=== PATIENT | male | born 1940 | race African-American/Black ===

== ENCOUNTER 2016-04-05 14:07 | Outpatient (CLI) | payer MEDICARE, BC ==
[2016-04-05] MEDS ORDERED: SENN8.6T6 PO (20:33)
[2016-04-05] MEDS ORDERED: FURO40TA5 PO (20:33)
[2016-04-05] MEDS ORDERED: APIX2.5T PO (20:33)
[2016-04-05] MEDS ORDERED: ASPI81TA2 PO (20:33)
[2016-04-05] MEDS ORDERED: INSU3INS6 SUBCUT (20:33)
[2016-04-05] MEDS ORDERED: CLOP75TA2 PO (20:33)
[2016-04-05] MEDS ORDERED: CARV6.252 PO (20:33)
[2016-04-05] MEDS ORDERED: METO-302 PO (20:33)
[2016-04-05] MEDS ORDERED: LISI2.5T2 PO (20:33)
[2016-04-05] MEDS ORDERED: SPIR25TA4 PO (20:33)
[2016-04-05] MEDS ORDERED: ATOR80TA PO (20:33)
[2016-04-05] MEDS ORDERED: LEVO100T9 PO (20:33)
== END 2016-04-05 23:59 | disposition home or self-care (01) ==
LOC: WOU 14:07
PROVIDERS: ATTEND Specialist
DX: E11.52 Type 2 diabetes mellitus with diabetic peripheral angiopathy with gangrene (principal); E11.621 Type 2 diabetes mellitus with foot ulcer; L97.413 Non-pressure chronic ulcer of right heel and midfoot with necrosis of muscle; Z99.3 Dependence on wheelchair; G47.30 Sleep apnea, unspecified; F17.210 Nicotine dependence, cigarettes, uncomplicated; I25.10 Atherosclerotic heart disease of native coronary artery without angina pectoris; Z95.5 Presence of coronary angioplasty implant and graft; Z89.612 Acquired absence of left leg above knee; E05.00 Thyrotoxicosis with diffuse goiter without thyrotoxic crisis or storm; L03.115 Cellulitis of right lower limb
CPT/HCPCS: 11043; 11046; 87070 ×2; 87075 ×2; 87077; 87186 ×3; A6253; A6402 ×2; A6407

== ENCOUNTER 2016-04-05 15:53 | Inpatient (IN) | payer MEDICARE, BC ==
[~2016-04-05] VITALS: Ht 177.8 cm; Wt 126.1 kg
[2016-04-05] MEDS ORDERED: ACETAMINOPHEN 325 MG TABLET PO PRN (17:30)
[2016-04-05] MEDS ORDERED: Z GUARD REMEDY 2 OZ OINT TP PRN (17:30)
[2016-04-05] MEDS ORDERED: MAG HYDROX/AL HYDROX/SIMETH 30 ML UDC PO PRN (17:30)
[2016-04-05] MEDS ORDERED: ONDANSETRON HCL/PF 4 MG/2 ML VIAL IVP PRN (17:30)
[2016-04-05] MEDS ORDERED: MAGNESIUM HYDROXIDE 30 ML UDC PO PRN (17:30)
[2016-04-05] MEDS ORDERED: HYDROCODONE/APAP 5/325MG 1 EACH TABLET PO PRN (17:30)
[2016-04-05 20:00] VITALS: BP 125/69
[2016-04-05] MEDS ORDERED: VANCOMYCIN 1 GM in IV D5W 250 ML IV ONE (20:00)
[2016-04-05 20:31] LABS: CALCIUM, SERUM 7.9 mg/dL (8.5-10.1); CREATININE 1.3 mg/dL (0.6-1.3); POTASSIUM 3.9 mmol/L (3.5-5.1)
[2016-04-05] MEDS ORDERED: LISI2.5T2 PO (20:33)
[2016-04-05] MEDS ORDERED: INSU3INS6 SQ (20:33)
[2016-04-05] MEDS ORDERED: ATOR80TA PO (20:33)
[2016-04-05] MEDS ORDERED: APIX2.5T PO (20:33)
[2016-04-05] MEDS ORDERED: METO-302 PO (20:33)
[2016-04-05] MEDS ORDERED: CLOP75TA2 PO (20:33)
[2016-04-05] MEDS ORDERED: LEVO100T9 PO (20:33)
[2016-04-05] MEDS ORDERED: ASPI81TA2 PO (20:33)
[2016-04-05] MEDS ORDERED: FURO40TA5 PO (20:33)
[2016-04-05] MEDS ORDERED: SENN8.6T6 PO (20:33)
[2016-04-05] MEDS ORDERED: CARV6.252 PO (20:33)
[2016-04-05] MEDS ORDERED: SPIR25TA4 PO (20:33)
[2016-04-05] MEDS ORDERED: FEE PK DOSING 1 MIN EA MC ONE (20:43)
[2016-04-05] MEDS ORDERED: PIPERACILLIN /TAZOBACTAM 4.5 G in IV D5W 50 ML IV SCH (21:00)
[2016-04-05] MEDS ORDERED: IV SET PRIMARY PUMP SET 1 EA INFUS.SET MC ONE (21:18)
[2016-04-05] MEDS ORDERED: SECONDARY IV SET 1 EA INFUS.SET MC ONE (21:18)
[2016-04-05] MEDS ORDERED: IV NS 0.9% 250 ML IV ONE (21:18)
[2016-04-05] MEDS: PIPERACILLIN /TAZOBACTAM 3.375 G in IV D5W 50 ML IV SCH (22:16)
[2016-04-06] MEDS: PIPERACILLIN /TAZOBACTAM 3.375 G in IV D5W 50 ML IV SCH ×4 (05:36→23:54)
[2016-04-06 07:52] LABS: BASOPHILS % (AUTO) 0.3 % (0.0-2.0); DIFF TOTAL % 100 %; EOSINOPHILS # (AUTO) 0.1 /CMM (0.0-0.7); EOSINOPHILS % (AUTO) 0.9 % (0.0-6.0); HEMATOCRIT 29 % (39-51); HEMOGLOBIN 9.3 g/dL (13.5-17.5); LYMPHOCYTES # (AUTO) 1.2 /CMM (0.8-4.8); LYMPHOCYTES % (AUTO) 10.8 % (20.0-44.0); MEAN CORPUSCULAR HEMOGLOBIN 26 PG (26.0-33.0); MEAN CORPUSCULAR HGB CONC 32 g/dl (31.0-36.0); MEAN CORPUSCULAR VOLUME 83 fL (80-96); MONOCYTES % (AUTO) 8.9 % (2.0-12.0); NEUTROPHILS # (AUTO) 9.1 /CMM (1.8-8.9); NEUTROPHILS % (AUTO) 79.1 % (43.0-81.0); PLATELET COUNT (AUTO) 354 /CMM (150-450); RED BLOOD CELL COUNT(AUTO) 3.54 MIL/uL (4.5-6.0); WHITE BLOOD COUNT (AUTO) 11.4 K/uL (4.3-11.0)
[2016-04-06 08:00] VITALS: BP 126/60
[2016-04-06 08:04] LABS: CALCIUM, SERUM 8.3 mg/dL (8.5-10.1); CREATININE 1.2 mg/dL (0.6-1.3); POTASSIUM 3.7 mmol/L (3.5-5.1)
[2016-04-06 08:23] LABS: THYROID STIMULATING HORMONE 5.961 uIU/mL (0.358-3.74)
[2016-04-06 10:33] LABS: INR 0.99 (0.87-1.13); PROTHROMBIN TIME 10.7 SECS (9.5-12.7)
[2016-04-06] MEDS: VANCOMYCIN 1 GM in IV D5W 250 ML IV SCH ×2 (11:19→21:46)
[2016-04-06] MEDS: PANTOPRAZOLE 40 MG TABLET.DR PO SCH (11:19)
[2016-04-06] MEDS: ENOXAPARIN SODIUM 40 MG/0.4 ML DISP.SYRIN SQ SCH (11:20)
[2016-04-06] MEDS ORDERED: SENNOSIDES 8.6 MG TABLET PO PRN (12:00)
[2016-04-06] MEDS ORDERED: DEXTROSE 50%-WATER 50 ML DISP.SYRIN IV PRN (12:00)
[2016-04-06] MEDS: BLOOD SUGAR DIAGNOSTIC 1 EACH STRIP IN SCH ×3 (12:05→21:43)
[2016-04-06] MEDS: INSULIN REGULAR, HUMAN 100 UNIT/ML 3 ML VIAL SQ PRN ×3 (12:16→21:45)
[2016-04-06] MEDS ORDERED: SECONDARY IV SET 1 EA INFUS.SET MC ONE (13:08)
[2016-04-06 13:10] LABS: IRON, SERUM 19 ug/dl (50-175); PERCENT SATURATION 11 % (14-33); TOTAL IRON BINDING CAPACITY 178 ug/dl (250-450)
[2016-04-06] MEDS: Magnesium 1GM/D5W 100ML PREMIX 100 ML IV SCH ×2 (14:23→15:30)
[2016-04-06 16:00] VITALS: BP 133/70
[2016-04-06] MEDS ORDERED: APIXABAN 2.5 MG TABLET PO SCH (17:00)
[2016-04-06] MEDS: LACTOBACILLUS RHAMNOSUS GG 1 EACH CAP.SPRINK PO SCH (17:59)
[2016-04-06] MEDS: FUROSEMIDE 40 MG TABLET PO SCH (17:59)
[2016-04-06] MEDS: CARVEDILOL 6.25 MG TABLET PO SCH (18:00)
[2016-04-06 20:00] VITALS: BP 136/68
[2016-04-06] MEDS: HYDROCODONE/APAP 10/325MG 1 EA TABLET PO PRN (20:09)
[2016-04-06] MEDS: INSULIN DETEMIR 100 UNIT/ML CARTRIDGE SQ SCH (21:46)
[2016-04-06] MEDS: ATORVASTATIN 40 MG TABLET PO SCH (21:47)
[2016-04-06] MEDS: ZOLPIDEM TARTRATE 5 MG TABLET PO PRN (21:50)
[2016-04-07] MEDS: PIPERACILLIN /TAZOBACTAM 3.375 G in IV D5W 50 ML IV SCH ×2 (05:27→12:35)
[2016-04-07] MEDS: BLOOD SUGAR DIAGNOSTIC 1 EACH STRIP IN SCH ×5 (05:47→21:22)
[2016-04-07 07:26] LABS: CALCIUM, SERUM 8.1 mg/dL (8.5-10.1); CREATININE 1.3 mg/dL (0.6-1.3); POTASSIUM 3.6 mmol/L (3.5-5.1)
[2016-04-07] MEDS ORDERED: MIDAZOLAM HCL 2 MG/2ML VIAL ONE (07:43)
[2016-04-07] MEDS ORDERED: FENTANYL PF 100MCG/2ML AMPUL ONE (07:44)
[2016-04-07 08:00] VITALS: BP 146/80
[2016-04-07 08:40] VITALS: BP 146/80
[2016-04-07] MEDS: ENOXAPARIN SODIUM 40 MG/0.4 ML DISP.SYRIN SQ SCH (09:00)
[2016-04-07] MEDS: VANCOMYCIN 1 GM in IV D5W 250 ML IV SCH (09:23)
[2016-04-07] MEDS: LEVOTHYROXINE SODIUM 100 MCG TABLET PO SCH (09:24)
[2016-04-07] MEDS: SPIRONOLACTONE 25 MG TABLET PO SCH (09:24)
[2016-04-07] MEDS: LACTOBACILLUS RHAMNOSUS GG 1 EACH CAP.SPRINK PO SCH ×2 (09:24→16:52)
[2016-04-07] MEDS: CLOPIDOGREL BISULFATE 75 MG TABLET PO SCH (09:24)
[2016-04-07] MEDS: PANTOPRAZOLE 40 MG TABLET.DR PO SCH (09:24)
[2016-04-07] MEDS: FUROSEMIDE 40 MG TABLET PO SCH ×2 (09:24→16:51)
[2016-04-07] MEDS: LISINOPRIL (5MG) 5 MG TABLET PO SCH (09:25)
[2016-04-07] MEDS: CARVEDILOL 6.25 MG TABLET PO SCH ×2 (09:25→16:51)
[2016-04-07] MEDS: METOPROLOL SUCCINATE 25 MG TAB.SR.24H PO SCH (09:27)
[2016-04-07] MEDS: INSULIN REGULAR, HUMAN 100 UNIT/ML 3 ML VIAL SQ PRN ×2 (12:45→17:59)
[2016-04-07 16:00] VITALS: BP 133/59
[2016-04-07] MEDS: SOD FERRIC GLUC 125 MG in IV NS 0.9% 100 ML IV SCH (16:00)
[2016-04-07 16:39] VITALS: BP 133/59
[2016-04-07] MEDS: ACIDOPHILUS/BULGARICUS 1 EACH TAB.CHEW PO SCH (16:52)
[2016-04-07] MEDS: CEFTRIAXONE 2 G in IV D5W 100 ML IV SCH (17:04)
[2016-04-07 20:00] VITALS: BP 123/62
[2016-04-07] MEDS: HYDROCODONE/APAP 10/325MG 1 EA TABLET PO PRN (20:00)
[2016-04-07 20:12] VITALS: BP 123/62
[2016-04-07] MEDS: ATORVASTATIN 40 MG TABLET PO SCH (21:21)
[2016-04-07] MEDS: INSULIN DETEMIR 100 UNIT/ML CARTRIDGE SQ SCH (22:00)
[2016-04-08 06:41] LABS: CALCIUM, SERUM 8.3 mg/dL (8.5-10.1); CREATININE 1.3 mg/dL (0.6-1.3); POTASSIUM 4.1 mmol/L (3.5-5.1)
[2016-04-08 08:00] VITALS: BP 124/87
[2016-04-08] MEDS: PANTOPRAZOLE 40 MG TABLET.DR PO SCH (08:33)
[2016-04-08] MEDS: LEVOTHYROXINE SODIUM 100 MCG TABLET PO SCH (08:34)
[2016-04-08] MEDS: SPIRONOLACTONE 25 MG TABLET PO SCH (08:37)
[2016-04-08] MEDS: METOPROLOL SUCCINATE 25 MG TAB.SR.24H PO SCH (08:39)
[2016-04-08] MEDS: CLOPIDOGREL BISULFATE 75 MG TABLET PO SCH (08:39)
[2016-04-08] MEDS: ACIDOPHILUS/BULGARICUS 1 EACH TAB.CHEW PO SCH ×3 (08:40→17:02)
[2016-04-08] MEDS: LACTOBACILLUS RHAMNOSUS GG 1 EACH CAP.SPRINK PO SCH ×2 (08:41→17:01)
[2016-04-08] MEDS: ENOXAPARIN SODIUM 40 MG/0.4 ML DISP.SYRIN SQ SCH (08:46)
[2016-04-08] MEDS: LISINOPRIL (5MG) 5 MG TABLET PO SCH (09:00)
[2016-04-08] MEDS: FUROSEMIDE 40 MG TABLET PO SCH ×2 (09:40→17:03)
[2016-04-08] MEDS: CARVEDILOL 6.25 MG TABLET PO SCH ×2 (09:42→17:04)
[2016-04-08] MEDS ORDERED: VANCOMYCIN 0.75 GM in IV D5W 250 ML IV SCH (10:00)
[2016-04-08] MEDS: BLOOD SUGAR DIAGNOSTIC 1 EACH STRIP IN SCH ×3 (12:25→21:52)
[2016-04-08] MEDS ORDERED: SECONDARY IV SET 1 EA INFUS.SET MC ONE (12:29)
[2016-04-08] MEDS: VANCOMYCIN 0.75 GM in IV D5W 250 ML IV SCH (12:34)
[2016-04-08] MEDS: HYDROCODONE/APAP 10/325MG 1 EA TABLET PO PRN ×2 (12:35→20:02)
[2016-04-08] MEDS: INSULIN REGULAR, HUMAN 100 UNIT/ML 3 ML VIAL SQ PRN ×2 (12:37→21:59)
[2016-04-08] MEDS: SOD FERRIC GLUC 125 MG in IV NS 0.9% 100 ML IV SCH (14:46)
[2016-04-08 16:00] VITALS: BP 122/63
[2016-04-08] MEDS: CEFTRIAXONE 2 G in IV D5W 100 ML IV SCH ×2 (17:05→20:39)
[2016-04-08 20:00] VITALS: BP 117/68
[2016-04-08] MEDS: ATORVASTATIN 40 MG TABLET PO SCH (21:51)
[2016-04-08] MEDS: INSULIN DETEMIR 100 UNIT/ML CARTRIDGE SQ SCH (21:58)
[2016-04-09] MEDS: VANCOMYCIN 0.75 GM in IV D5W 250 ML IV SCH ×2 (00:05→12:27)
[2016-04-09] MEDS: BLOOD SUGAR DIAGNOSTIC 1 EACH STRIP IN SCH ×4 (05:28→22:06)
[2016-04-09] MEDS: INSULIN REGULAR, HUMAN 100 UNIT/ML 3 ML VIAL SQ PRN ×4 (05:36→22:11)
[2016-04-09 07:42] LABS: BASOPHILS % (AUTO) 0.1 % (0.0-2.0); DIFF TOTAL % 100 %; EOSINOPHILS # (AUTO) 0.2 /CMM (0.0-0.7); HEMATOCRIT 28 % (39-51); HEMOGLOBIN 8.7 g/dL (13.5-17.5); LYMPHOCYTES # (AUTO) 1.1 /CMM (0.8-4.8); LYMPHOCYTES % (AUTO) 13.1 % (20.0-44.0); MEAN CORPUSCULAR HEMOGLOBIN 26 PG (26.0-33.0); MEAN CORPUSCULAR HGB CONC 32 g/dl (31.0-36.0); MEAN CORPUSCULAR VOLUME 81 fL (80-96); MONOCYTES # (AUTO) 0.6 /CMM (0.1-1.30); MONOCYTES % (AUTO) 7.6 % (2.0-12.0); NEUTROPHILS # (AUTO) 6.5 /CMM (1.8-8.9); NEUTROPHILS % (AUTO) 77.2 % (43.0-81.0); PLATELET COUNT (AUTO) 358 /CMM (150-450); WHITE BLOOD COUNT (AUTO) 8.4 K/uL (4.3-11.0)
[2016-04-09 08:00] VITALS: BP_SYST 107; BP_DIAS 45; BP_DIAS 75
[2016-04-09 08:18] LABS: CREATININE 1.3 mg/dL (0.6-1.3); POTASSIUM 3.8 mmol/L (3.5-5.1)
[2016-04-09] MEDS: CLOPIDOGREL BISULFATE 75 MG TABLET PO SCH (08:56)
[2016-04-09] MEDS: ACIDOPHILUS/BULGARICUS 1 EACH TAB.CHEW PO SCH ×3 (08:56→16:41)
[2016-04-09] MEDS: LEVOTHYROXINE SODIUM 100 MCG TABLET PO SCH (08:56)
[2016-04-09] MEDS: FUROSEMIDE 40 MG TABLET PO SCH ×2 (08:56→16:41)
[2016-04-09] MEDS: PANTOPRAZOLE 40 MG TABLET.DR PO SCH (08:56)
[2016-04-09] MEDS: LACTOBACILLUS RHAMNOSUS GG 1 EACH CAP.SPRINK PO SCH ×2 (08:56→16:41)
[2016-04-09] MEDS: CARVEDILOL 6.25 MG TABLET PO SCH ×2 (09:00→17:00)
[2016-04-09] MEDS: LISINOPRIL (5MG) 5 MG TABLET PO SCH (09:00)
[2016-04-09] MEDS: METOPROLOL SUCCINATE 25 MG TAB.SR.24H PO SCH (09:00)
[2016-04-09] MEDS: ENOXAPARIN SODIUM 40 MG/0.4 ML DISP.SYRIN SQ SCH (09:02)
[2016-04-09] MEDS: HYDROCODONE/APAP 10/325MG 1 EA TABLET PO PRN ×2 (09:03→21:46)
[2016-04-09] MEDS: SPIRONOLACTONE 25 MG TABLET PO SCH (10:31)
[2016-04-09] MEDS ORDERED: SILVER SULFADIAZINE 50 GM JAR TP SCH (14:00)
[2016-04-09] MEDS: SOD FERRIC GLUC 125 MG in IV NS 0.9% 100 ML IV SCH (14:51)
[2016-04-09 16:00] VITALS: BP 102/47
[2016-04-09] MEDS: CEFTRIAXONE 2 G in IV D5W 100 ML IV SCH (16:41)
[2016-04-09] MEDS: SILVER SULFADIAZINE CREAM 25 GM TUBE TP SCH (18:49)
[2016-04-09 20:00] VITALS: BP 113/64
[2016-04-09] MEDS: ZOLPIDEM TARTRATE 5 MG TABLET PO PRN (21:46)
[2016-04-09] MEDS: ATORVASTATIN 40 MG TABLET PO SCH (21:47)
[2016-04-09] MEDS: INSULIN DETEMIR 100 UNIT/ML CARTRIDGE SQ SCH (22:10)
[2016-04-10] MEDS: VANCOMYCIN 0.75 GM in IV D5W 250 ML IV SCH ×2 (00:08→11:57)
[2016-04-10] MEDS: BLOOD SUGAR DIAGNOSTIC 1 EACH STRIP IN SCH ×4 (05:54→21:59)
[2016-04-10 07:32] LABS: CALCIUM, SERUM 8.2 mg/dL (8.5-10.1); CREATININE 1.3 mg/dL (0.6-1.3); POTASSIUM 4.2 mmol/L (3.5-5.1)
[2016-04-10 08:00] VITALS: BP 128/71
[2016-04-10] MEDS: CLOPIDOGREL BISULFATE 75 MG TABLET PO SCH (08:22)
[2016-04-10] MEDS: ACIDOPHILUS/BULGARICUS 1 EACH TAB.CHEW PO SCH ×3 (08:23→17:11)
[2016-04-10] MEDS: PANTOPRAZOLE 40 MG TABLET.DR PO SCH (08:23)
[2016-04-10] MEDS: LEVOTHYROXINE SODIUM 100 MCG TABLET PO SCH (08:23)
[2016-04-10] MEDS: LACTOBACILLUS RHAMNOSUS GG 1 EACH CAP.SPRINK PO SCH ×2 (08:23→17:11)
[2016-04-10] MEDS: SILVER SULFADIAZINE CREAM 25 GM TUBE TP SCH ×2 (08:25→17:13)
[2016-04-10] MEDS: DAKINS QUARTER STRENGTH (0.125%) 480 ML BOTTLE TOP SCH (08:25)
[2016-04-10] MEDS: CARVEDILOL 6.25 MG TABLET PO SCH ×2 (08:26→17:12)
[2016-04-10] MEDS: METOPROLOL SUCCINATE 25 MG TAB.SR.24H PO SCH (08:27)
[2016-04-10] MEDS: LISINOPRIL (5MG) 5 MG TABLET PO SCH (08:27)
[2016-04-10] MEDS: FUROSEMIDE 40 MG TABLET PO SCH ×2 (08:27→17:12)
[2016-04-10] MEDS: ENOXAPARIN SODIUM 40 MG/0.4 ML DISP.SYRIN SQ SCH (08:30)
[2016-04-10] MEDS: SPIRONOLACTONE 25 MG TABLET PO SCH (09:00)
[2016-04-10] MEDS: SOD FERRIC GLUC 125 MG in IV NS 0.9% 100 ML IV SCH (14:28)
[2016-04-10 16:00] VITALS: BP 124/66
[2016-04-10] MEDS: CEFTRIAXONE 2 G in IV D5W 100 ML IV SCH (17:45)
[2016-04-10] MEDS: INSULIN REGULAR, HUMAN 100 UNIT/ML 3 ML VIAL SQ PRN ×2 (17:50→22:07)
[2016-04-10 20:00] VITALS: BP 118/72
[2016-04-10 20:20] VITALS: BP 118/72
[2016-04-10] MEDS: ATORVASTATIN 40 MG TABLET PO SCH (22:00)
[2016-04-10] MEDS: INSULIN DETEMIR 100 UNIT/ML CARTRIDGE SQ SCH (22:10)
[2016-04-11] MEDS: VANCOMYCIN 0.75 GM in IV D5W 250 ML IV SCH ×2 (00:35→12:09)
[2016-04-11] MEDS ORDERED: IV SET PRIMARY PUMP SET 1 EA INFUS.SET MC ONE ×3 (04:40→14:04)
[2016-04-11 05:07] LABS: BASOPHILS % (AUTO) 0.2 % (0.0-2.0); DIFF TOTAL % 100 %; EOSINOPHILS # (AUTO) 0.2 /CMM (0.0-0.7); EOSINOPHILS % (AUTO) 2.1 % (0.0-6.0); HEMATOCRIT 29 % (39-51); HEMOGLOBIN 9.2 g/dL (13.5-17.5); LYMPHOCYTES # (AUTO) 1.1 /CMM (0.8-4.8); LYMPHOCYTES % (AUTO) 13.9 % (20.0-44.0); MEAN CORPUSCULAR HEMOGLOBIN 26 PG (26.0-33.0); MEAN CORPUSCULAR HGB CONC 32 g/dl (31.0-36.0); MEAN CORPUSCULAR VOLUME 82 fL (80-96); MONOCYTES # (AUTO) 0.5 /CMM (0.1-1.30); MONOCYTES % (AUTO) 6.1 % (2.0-12.0); NEUTROPHILS # (AUTO) 6.2 /CMM (1.8-8.9); NEUTROPHILS % (AUTO) 77.7 % (43.0-81.0); PLATELET COUNT (AUTO) 331 /CMM (150-450); RED BLOOD CELL COUNT(AUTO) 3.53 MIL/uL (4.5-6.0)
[2016-04-11 05:21] LABS: CALCIUM, SERUM 8.2 mg/dL (8.5-10.1); CREATININE 1.3 mg/dL (0.6-1.3); POTASSIUM 3.6 mmol/L (3.5-5.1)
[2016-04-11 05:47] LABS: INR 0.99 (0.87-1.13); PROTHROMBIN TIME 10.7 SECS (9.5-12.7)
[2016-04-11] MEDS: BLOOD SUGAR DIAGNOSTIC 1 EACH STRIP IN SCH ×4 (06:40→22:05)
[2016-04-11] MEDS ORDERED: MIDAZOLAM HCL 2 MG/2ML VIAL ONE (07:38)
[2016-04-11] MEDS ORDERED: FENTANYL PF 100MCG/2ML AMPUL ONE (07:38)
[2016-04-11] MEDS ORDERED: BACITRACIN 50000 UNITS/VIAL ONE (08:21)
[2016-04-11] MEDS ORDERED: TOBRAMYCIN 1.2 GM ONE (08:27)
[2016-04-11] MEDS: CLOPIDOGREL BISULFATE 75 MG TABLET PO SCH (09:00)
[2016-04-11] MEDS: DAKINS QUARTER STRENGTH (0.125%) 480 ML BOTTLE TOP SCH (09:00)
[2016-04-11] MEDS: SILVER SULFADIAZINE CREAM 25 GM TUBE TP SCH ×2 (09:00→17:00)
[2016-04-11] MEDS: ENOXAPARIN SODIUM 40 MG/0.4 ML DISP.SYRIN SQ SCH (09:00)
[2016-04-11] MEDS: SPIRONOLACTONE 25 MG TABLET PO SCH (10:31)
[2016-04-11] MEDS: LEVOTHYROXINE SODIUM 100 MCG TABLET PO SCH (10:31)
[2016-04-11] MEDS: ACIDOPHILUS/BULGARICUS 1 EACH TAB.CHEW PO SCH ×3 (10:31→17:57)
[2016-04-11] MEDS: LACTOBACILLUS RHAMNOSUS GG 1 EACH CAP.SPRINK PO SCH ×2 (10:31→17:57)
[2016-04-11] MEDS: CARVEDILOL 6.25 MG TABLET PO SCH ×2 (10:32→17:58)
[2016-04-11] MEDS: PANTOPRAZOLE 40 MG TABLET.DR PO SCH (10:32)
[2016-04-11] MEDS: FUROSEMIDE 40 MG TABLET PO SCH ×2 (10:36→17:57)
[2016-04-11] MEDS: LISINOPRIL (5MG) 5 MG TABLET PO SCH (11:15)
[2016-04-11] MEDS: INSULIN REGULAR, HUMAN 100 UNIT/ML 3 ML VIAL SQ PRN ×2 (12:13→21:57)
[2016-04-11] MEDS: SOD FERRIC GLUC 125 MG in IV NS 0.9% 100 ML IV SCH (14:23)
[2016-04-11] MEDS: HYDROCODONE/APAP 10/325MG 1 EA TABLET PO PRN (15:38)
[2016-04-11 16:00] VITALS: BP 140/68
[2016-04-11] MEDS: CEFTRIAXONE 2 G in IV D5W 100 ML IV SCH (17:57)
[2016-04-11] MEDS: METOPROLOL SUCCINATE 25 MG TAB.SR.24H PO SCH (17:59)
[2016-04-11 20:00] VITALS: BP 118/62
[2016-04-11] MEDS: ATORVASTATIN 40 MG TABLET PO SCH (21:51)
[2016-04-11] MEDS: INSULIN DETEMIR 100 UNIT/ML CARTRIDGE SQ SCH (21:56)
[2016-04-12] MEDS: VANCOMYCIN 0.75 GM in IV D5W 250 ML IV SCH ×2 (00:35→11:23)
[2016-04-12 08:00] VITALS: BP 124/70
[2016-04-12] MEDS: LACTOBACILLUS RHAMNOSUS GG 1 EACH CAP.SPRINK PO SCH ×2 (08:11→17:42)
[2016-04-12] MEDS: FUROSEMIDE 40 MG TABLET PO SCH ×2 (08:11→17:43)
[2016-04-12] MEDS: SPIRONOLACTONE 25 MG TABLET PO SCH (08:11)
[2016-04-12] MEDS: LEVOTHYROXINE SODIUM 100 MCG TABLET PO SCH (08:11)
[2016-04-12] MEDS: PANTOPRAZOLE 40 MG TABLET.DR PO SCH (08:11)
[2016-04-12] MEDS: BLOOD SUGAR DIAGNOSTIC 1 EACH STRIP IN SCH ×3 (08:11→17:43)
[2016-04-12] MEDS: CLOPIDOGREL BISULFATE 75 MG TABLET PO SCH (08:11)
[2016-04-12] MEDS: ACIDOPHILUS/BULGARICUS 1 EACH TAB.CHEW PO SCH ×3 (08:11→17:42)
[2016-04-12] MEDS: METOPROLOL SUCCINATE 25 MG TAB.SR.24H PO SCH (08:11)
[2016-04-12] MEDS: CARVEDILOL 6.25 MG TABLET PO SCH ×2 (08:12→17:42)
[2016-04-12] MEDS: LISINOPRIL (5MG) 5 MG TABLET PO SCH (08:12)
[2016-04-12] MEDS: ENOXAPARIN SODIUM 40 MG/0.4 ML DISP.SYRIN SQ SCH (08:13)
[2016-04-12 08:39] LABS: CALCIUM, SERUM 7.8 mg/dL (8.5-10.1); CREATININE 1.3 mg/dL (0.6-1.3); POTASSIUM 3.9 mmol/L (3.5-5.1)
[2016-04-12] MEDS: INSULIN REGULAR, HUMAN 100 UNIT/ML 3 ML VIAL SQ PRN (11:24)
[2016-04-12 16:00] VITALS: BP 121/48
[2016-04-12 20:00] VITALS: BP 112/65
== END 2016-04-12 21:00 | disposition home health service (06) | DRG 616 ==
LOC: WOUND3 15:53
PROC: 0Q9N0ZX Drainage of Right Metatarsal, Open Approach, Diagnostic (ICD-10-PCS; 2016-04-07)
PROC: 0JBQ0ZZ Excision of Right Foot Subcutaneous Tissue and Fascia, Open Approach (ICD-10-PCS; 2016-04-07)
PROC: 0QBN0ZZ Excision of Right Metatarsal, Open Approach (ICD-10-PCS; 2016-04-11)
PROC: 05H533Z Insertion of Infusion Device into Right Subclavian Vein, Percutaneous Approach (ICD-10-PCS; 2016-04-11)
PROC: 0Y6X0Z0 Detachment at Right 5th Toe, Complete, Open Approach (ICD-10-PCS; principal; 2016-04-11 08:01)
DX: E11.69 Type 2 diabetes mellitus with other specified complication (principal); E43 Unspecified severe protein-calorie malnutrition; L03.115 Cellulitis of right lower limb; E11.52 Type 2 diabetes mellitus with diabetic peripheral angiopathy with gangrene; L02.611 Cutaneous abscess of right foot; M86.8X6 Other osteomyelitis, lower leg; E11.40 Type 2 diabetes mellitus with diabetic neuropathy, unspecified; I25.2 Old myocardial infarction; E66.01 Morbid (severe) obesity due to excess calories; Z87.891 Personal history of nicotine dependence; Z89.612 Acquired absence of left leg above knee; I25.10 Atherosclerotic heart disease of native coronary artery without angina pectoris; E11.65 Type 2 diabetes mellitus with hyperglycemia; E11.621 Type 2 diabetes mellitus with foot ulcer; G47.33 Obstructive sleep apnea (adult) (pediatric); L97.529 Non-pressure chronic ulcer of other part of left foot with unspecified severity; E78.5 Hyperlipidemia, unspecified; E83.42 Hypomagnesemia; I10 Essential (primary) hypertension; Z89.512 Acquired absence of left leg below knee
CPT/HCPCS: 36415; 71010-TC; 73630-TC; 73718-TC; 80048-TC; 80061-TC; 80202-TC; 82728-TC; 82962-TC; 83540-TC; 83735-TC; 84100-TC; 84443-TC; 85025-TC; 85610-TC; 85730-TC; 87070-TC; 87075-TC; 87081-TC; 87186-TC; 88305-TC; 88311-TC; 88312-TC; 92521; 93307-TC; 97001-TC; 97003-TC; A4217; A6209; A6253; A6402; A6407; J0696; J1650; J1815; J2250; J2405; J2543; J2704; J2916; J3010; J3260; J3370; J3475; J7030; J7050; J7060; Z7610

== ENCOUNTER 2016-04-14 11:25 | Outpatient (CLI) | payer MEDICARE, BC ==
[~2016-04-14 11:25] MED LIST: APIX2.5T PO; ASPI81TA2 PO; ATOR80TA PO; CARV6.252 PO; CLOP75TA2 PO; FURO40TA5 PO; INSU3INS6 SQ; LEVO100T9 PO; LISI2.5T2 PO; METO-302 PO; SENN8.6T6 PO; SPIR25TA4 PO
== END 2016-04-14 23:59 | disposition home or self-care (01) ==
LOC: WOU 11:25
PROVIDERS: ATTEND Nurse Practitioner Acute Care
DX: Z45.2 Encounter for adjustment and management of vascular access device (principal)
CPT/HCPCS: 36569; C1751

== ENCOUNTER 2016-04-21 13:57 | Outpatient (CLI) | payer MEDICARE, BC ==
[2016-04-21] MEDS ORDERED: DILT240C2 PO (16:45)
[2016-04-21] MEDS ORDERED: ATOR40TA PO (16:45)
[2016-04-21] MEDS ORDERED: HYDR-548 PO (16:45)
[2016-04-21] MEDS ORDERED: CARV12.52 PO (16:45)
[2016-04-21] MEDS ORDERED: INSU100V27 SQ (16:46)
== END 2016-04-21 23:59 | disposition home or self-care (01) ==
LOC: WOU 13:57
PROVIDERS: ATTEND Podiatrist Foot & Ankle Surgery
DX: L03.115 Cellulitis of right lower limb (principal); E11.621 Type 2 diabetes mellitus with foot ulcer; E11.42 Type 2 diabetes mellitus with diabetic polyneuropathy; M72.6 Necrotizing fasciitis; Z89.421 Acquired absence of other right toe(s); Z95.5 Presence of coronary angioplasty implant and graft; I25.10 Atherosclerotic heart disease of native coronary artery without angina pectoris; Z72.0 Tobacco use; Z89.512 Acquired absence of left leg below knee; Z99.3 Dependence on wheelchair; R60.0 Localized edema; G47.30 Sleep apnea, unspecified; E11.52 Type 2 diabetes mellitus with diabetic peripheral angiopathy with gangrene; L97.519 Non-pressure chronic ulcer of other part of right foot with unspecified severity
CPT/HCPCS: 36569; A6402; C1751; G0463

== ENCOUNTER 2016-04-21 15:03 | Inpatient (IN) | payer MEDICARE, BC ==
[~2016-04-21] VITALS: Ht 177.8 cm; Wt 127.0 kg
[2016-04-21 16:00] VITALS: BP 113/58
[2016-04-21] MEDS ORDERED: ATOR40TA PO (16:45)
[2016-04-21] MEDS ORDERED: HYDR-548 PO (16:45)
[2016-04-21] MEDS ORDERED: CARV12.52 PO (16:45)
[2016-04-21] MEDS ORDERED: DILT240C2 PO (16:45)
[2016-04-21] MEDS ORDERED: INSU100V27 SQ (16:46)
[2016-04-21] MEDS ORDERED: FEE PK DOSING 1 MIN EA MC ONE (17:49)
[2016-04-21] MEDS ORDERED: VANCOMYCIN 1.25 GM in IV D5W 500 ML IV ONE (18:00)
[2016-04-21] MEDS ORDERED: VANCOMYCIN 1 GM in IV D5W 250 ML IV ONE (18:00)
[2016-04-21 19:19] LABS: CALCIUM, SERUM 8.2 mg/dL (8.5-10.1); CREATININE 1.2 mg/dL (0.6-1.3); POTASSIUM 3.2 mmol/L (3.5-5.1)
[2016-04-21] MEDS ORDERED: IV SET PRIMARY PUMP SET 1 EA INFUS.SET MC ONE (19:57)
[2016-04-21] MEDS ORDERED: SECONDARY IV SET 1 EA INFUS.SET MC ONE (19:57)
[2016-04-21 20:00] VITALS: BP 120/67
[2016-04-21] MEDS ORDERED: DEXTROSE 50%-WATER 50 ML DISP.SYRIN IV PRN (20:00)
[2016-04-21] MEDS: SILVER SULFADIAZINE CREAM 25 GM TUBE TP SCH (20:03)
[2016-04-21 20:30] VITALS: BP 120/67
[2016-04-21] MEDS ORDERED: POTASSIUM CHLORIDE 20 MEQ POWDER PACKET PO ONE (21:00)
[2016-04-21] MEDS: ATORVASTATIN 40 MG TABLET PO SCH (21:40)
[2016-04-21] MEDS: BLOOD SUGAR DIAGNOSTIC 1 EACH STRIP IN SCH (21:44)
[2016-04-21] MEDS: INSULIN DETEMIR 100 UNIT/ML CARTRIDGE SQ SCH (21:48)
[2016-04-21] MEDS: INSULIN REGULAR, HUMAN 100 UNIT/ML 3 ML VIAL SQ PRN (21:51)
[2016-04-21] MEDS ORDERED: SENNOSIDES 8.6 MG TABLET PO PRN (22:00)
[2016-04-21] MEDS ORDERED: TEMAZEPAM 15 MG CAPSULE PO PRN (22:00)
[2016-04-22] MEDS: BLOOD SUGAR DIAGNOSTIC 1 EACH STRIP IN SCH ×4 (05:47→21:03)
[2016-04-22] MEDS: INSULIN REGULAR, HUMAN 100 UNIT/ML 3 ML VIAL SQ PRN ×4 (06:51→21:07)
[2016-04-22 08:00] VITALS: BP 155/72
[2016-04-22 08:02] LABS: CALCIUM, SERUM 8.6 mg/dL (8.5-10.1); CREATININE 1.1 mg/dL (0.6-1.3); POTASSIUM 3.8 mmol/L (3.5-5.1)
[2016-04-22] MEDS ORDERED: APIXABAN 5 MG TABLET PO SCH (09:00)
[2016-04-22] MEDS ORDERED: CARVEDILOL 12.5 MG TABLET PO SCH (09:00)
[2016-04-22] MEDS: FUROSEMIDE 40 MG TABLET PO SCH ×2 (09:48→17:40)
[2016-04-22] MEDS: CLOPIDOGREL BISULFATE 75 MG TABLET PO SCH (09:48)
[2016-04-22] MEDS: ASPIRIN 81 MG TAB.CHEW PO SCH (09:48)
[2016-04-22] MEDS: LEVOTHYROXINE SODIUM 100 MCG TABLET PO SCH (09:48)
[2016-04-22] MEDS: LISINOPRIL (5MG) 5 MG TABLET PO SCH (09:49)
[2016-04-22] MEDS: SPIRONOLACTONE 25 MG TABLET PO SCH (09:49)
[2016-04-22] MEDS: METOPROLOL SUCCINATE 25 MG TAB.SR.24H PO SCH (09:49)
[2016-04-22] MEDS: DILTIAZEM HCL CD 240 MG PO SCH (09:50)
[2016-04-22] MEDS: SILVER SULFADIAZINE CREAM 25 GM TUBE TP SCH ×2 (09:54→17:43)
[2016-04-22] MEDS: VANCOMYCIN 1.25 GM in IV D5W 500 ML IV SCH (11:13)
[2016-04-22 16:23] VITALS: BP 123/70
[2016-04-22] MEDS: ATORVASTATIN 40 MG TABLET PO SCH (17:41)
[2016-04-22] MEDS: APIXABAN 2.5 MG TABLET PO SCH (17:41)
[2016-04-22] MEDS ORDERED: APIXABAN 2.5 MG TABLET PO SCH (18:00)
[2016-04-22 20:00] VITALS: BP 118/65
[2016-04-22] MEDS: INSULIN DETEMIR 100 UNIT/ML CARTRIDGE SQ SCH (21:08)
[2016-04-23] MEDS: VANCOMYCIN 1.25 GM in IV D5W 500 ML IV SCH (05:11)
[2016-04-23] MEDS: BLOOD SUGAR DIAGNOSTIC 1 EACH STRIP IN SCH ×4 (05:42→23:10)
[2016-04-23] MEDS: INSULIN REGULAR, HUMAN 100 UNIT/ML 3 ML VIAL SQ PRN ×4 (05:50→23:15)
[2016-04-23 07:40] LABS: CALCIUM, SERUM 8.7 mg/dL (8.5-10.1); CREATININE 1.1 mg/dL (0.6-1.3); POTASSIUM 3.6 mmol/L (3.5-5.1)
[2016-04-23 08:00] VITALS: BP 101/67
[2016-04-23] MEDS: DILTIAZEM HCL CD 240 MG PO SCH (08:23)
[2016-04-23] MEDS: CLOPIDOGREL BISULFATE 75 MG TABLET PO SCH (08:24)
[2016-04-23] MEDS: SPIRONOLACTONE 25 MG TABLET PO SCH (08:24)
[2016-04-23] MEDS: METOPROLOL SUCCINATE 25 MG TAB.SR.24H PO SCH (08:24)
[2016-04-23] MEDS: LISINOPRIL (5MG) 5 MG TABLET PO SCH (08:24)
[2016-04-23] MEDS: LEVOTHYROXINE SODIUM 100 MCG TABLET PO SCH (08:24)
[2016-04-23] MEDS: FUROSEMIDE 40 MG TABLET PO SCH ×2 (08:24→17:20)
[2016-04-23] MEDS: ASPIRIN 81 MG TAB.CHEW PO SCH (08:25)
[2016-04-23] MEDS: APIXABAN 2.5 MG TABLET PO SCH ×2 (08:26→17:17)
[2016-04-23] MEDS: SILVER SULFADIAZINE CREAM 25 GM TUBE TP SCH ×2 (08:32→17:20)
[2016-04-23 16:00] VITALS: BP 121/67
[2016-04-23] MEDS: ATORVASTATIN 40 MG TABLET PO SCH (17:16)
[2016-04-23 20:00] VITALS: BP 112/77
[2016-04-23 22:00] VITALS: BP 112/77
[2016-04-23] MEDS: INSULIN DETEMIR 100 UNIT/ML CARTRIDGE SQ SCH (23:11)
[2016-04-24] MEDS: VANCOMYCIN 1.25 GM in IV D5W 500 ML IV SCH ×2 (01:22→17:53)
[2016-04-24] MEDS ORDERED: IV SET PRIMARY PUMP SET 1 EA INFUS.SET MC ONE (01:25)
[2016-04-24] MEDS ORDERED: IV NS 0.9% 250 ML IV ONE (01:25)
[2016-04-24] MEDS ORDERED: SECONDARY IV SET 1 EA INFUS.SET MC ONE (01:25)
[2016-04-24 07:18] LABS: BASOPHILS % (AUTO) 0.6 % (0.0-2.0); DIFF TOTAL % 100 %; EOSINOPHILS # (AUTO) 0.4 /CMM (0.0-0.7); EOSINOPHILS % (AUTO) 8.1 % (0.0-6.0); HEMATOCRIT 29 % (39-51); HEMOGLOBIN 9.3 g/dL (13.5-17.5); LYMPHOCYTES # (AUTO) 1.4 /CMM (0.8-4.8); LYMPHOCYTES % (AUTO) 28.7 % (20.0-44.0); MEAN CORPUSCULAR HEMOGLOBIN 26 PG (26.0-33.0); MEAN CORPUSCULAR HGB CONC 32 g/dl (31.0-36.0); MEAN CORPUSCULAR VOLUME 83 fL (80-96); MONOCYTES # (AUTO) 0.4 /CMM (0.1-1.30); MONOCYTES % (AUTO) 9.2 % (2.0-12.0); NEUTROPHILS # (AUTO) 2.6 /CMM (1.8-8.9); NEUTROPHILS % (AUTO) 53.4 % (43.0-81.0); PLATELET COUNT (AUTO) 265 /CMM (150-450); RED BLOOD CELL COUNT(AUTO) 3.53 MIL/uL (4.5-6.0); WHITE BLOOD COUNT (AUTO) 4.8 K/uL (4.3-11.0)
[2016-04-24 07:27] LABS: CALCIUM, SERUM 8.5 mg/dL (8.5-10.1); CREATININE 1.2 mg/dL (0.6-1.3); POTASSIUM 3.7 mmol/L (3.5-5.1)
[2016-04-24] MEDS: BLOOD SUGAR DIAGNOSTIC 1 EACH STRIP IN SCH ×4 (07:30→22:39)
[2016-04-24] MEDS ORDERED: FENTANYL PF 100MCG/2ML AMPUL ONE (08:35)
[2016-04-24] MEDS ORDERED: MIDAZOLAM HCL 2 MG/2ML VIAL ONE (08:35)
[2016-04-24] MEDS: APIXABAN 2.5 MG TABLET PO SCH ×2 (09:00→17:53)
[2016-04-24] MEDS: ASPIRIN 81 MG TAB.CHEW PO SCH (09:00)
[2016-04-24] MEDS: CLOPIDOGREL BISULFATE 75 MG TABLET PO SCH (09:00)
[2016-04-24] MEDS: SILVER SULFADIAZINE CREAM 25 GM TUBE TP SCH ×2 (09:00→17:00)
[2016-04-24 11:30] VITALS: BP 122/78
[2016-04-24 11:45] VITALS: BP 119/78
[2016-04-24 12:00] VITALS: BP 125/78
[2016-04-24] MEDS: FUROSEMIDE 40 MG TABLET PO SCH ×2 (13:55→17:53)
[2016-04-24] MEDS: LISINOPRIL (5MG) 5 MG TABLET PO SCH (13:56)
[2016-04-24] MEDS: SPIRONOLACTONE 25 MG TABLET PO SCH (13:56)
[2016-04-24] MEDS: LEVOTHYROXINE SODIUM 100 MCG TABLET PO SCH (13:56)
[2016-04-24] MEDS: METOPROLOL SUCCINATE 25 MG TAB.SR.24H PO SCH (13:57)
[2016-04-24] MEDS: DILTIAZEM HCL CD 240 MG PO SCH (13:57)
[2016-04-24] MEDS: HYDROCODONE/APAP 10/325MG 1 EA TABLET PO PRN (13:58)
[2016-04-24 16:00] VITALS: BP 133/66
[2016-04-24] MEDS: ATORVASTATIN 40 MG TABLET PO SCH (17:53)
[2016-04-24] MEDS: INSULIN REGULAR, HUMAN 100 UNIT/ML 3 ML VIAL SQ PRN (17:55)
[2016-04-24 20:00] VITALS: BP 122/59
[2016-04-24] MEDS: INSULIN DETEMIR 100 UNIT/ML CARTRIDGE SQ SCH (22:41)
[2016-04-25 07:37] LABS: CALCIUM, SERUM 8.3 mg/dL (8.5-10.1); CREATININE 1.4 mg/dL (0.6-1.3); POTASSIUM 3.7 mmol/L (3.5-5.1)
[2016-04-25] MEDS: LEVOTHYROXINE SODIUM 100 MCG TABLET PO SCH (07:49)
[2016-04-25 08:00] VITALS: BP 116/66
[2016-04-25] MEDS: FUROSEMIDE 40 MG TABLET PO SCH ×2 (08:41→16:23)
[2016-04-25] MEDS: SPIRONOLACTONE 25 MG TABLET PO SCH (08:41)
[2016-04-25] MEDS: CLOPIDOGREL BISULFATE 75 MG TABLET PO SCH (08:41)
[2016-04-25] MEDS: ASPIRIN 81 MG TAB.CHEW PO SCH (08:41)
[2016-04-25] MEDS: LISINOPRIL (5MG) 5 MG TABLET PO SCH (08:41)
[2016-04-25] MEDS: METOPROLOL SUCCINATE 25 MG TAB.SR.24H PO SCH (08:42)
[2016-04-25] MEDS: DILTIAZEM HCL CD 240 MG PO SCH (08:42)
[2016-04-25] MEDS: SILVER SULFADIAZINE CREAM 25 GM TUBE TP SCH ×2 (08:49→16:27)
[2016-04-25] MEDS: APIXABAN 2.5 MG TABLET PO SCH ×2 (09:23→16:24)
[2016-04-25] MEDS: INSULIN REGULAR, HUMAN 100 UNIT/ML 3 ML VIAL SQ PRN ×2 (12:18→21:47)
[2016-04-25] MEDS: DOCUSATE SODIUM 100 MG CAPSULE PO SCH (12:50)
[2016-04-25] MEDS: VANCOMYCIN 1.25 GM in IV D5W 500 ML IV SCH (12:50)
[2016-04-25] MEDS: BLOOD SUGAR DIAGNOSTIC 1 EACH STRIP IN SCH ×4 (12:56→17:34)
[2016-04-25 16:19] VITALS: BP 115/65
[2016-04-25] MEDS: ATORVASTATIN 40 MG TABLET PO SCH (17:33)
[2016-04-25 20:00] VITALS: BP 108/58
[2016-04-25] MEDS: INSULIN DETEMIR 100 UNIT/ML CARTRIDGE SQ SCH (21:46)
[2016-04-25 22:00] VITALS: BP 108/58
[2016-04-26] MEDS: VANCOMYCIN 1.25 GM in IV D5W 500 ML IV SCH ×2 (05:26→23:34)
[2016-04-26 06:21] LABS: CALCIUM, SERUM 8.4 mg/dL (8.5-10.1); CREATININE 1.5 mg/dL (0.6-1.3); POTASSIUM 3.7 mmol/L (3.5-5.1)
[2016-04-26] MEDS: BLOOD SUGAR DIAGNOSTIC 1 EACH STRIP IN SCH ×4 (06:44→21:14)
[2016-04-26] MEDS: LEVOTHYROXINE SODIUM 100 MCG TABLET PO SCH (06:44)
[2016-04-26 08:00] VITALS: BP 93/72
[2016-04-26] MEDS: SILVER SULFADIAZINE CREAM 25 GM TUBE TP SCH ×2 (09:00→17:00)
[2016-04-26] MEDS: DILTIAZEM HCL CD 240 MG PO SCH (09:00)
[2016-04-26] MEDS: LISINOPRIL (5MG) 5 MG TABLET PO SCH (09:00)
[2016-04-26] MEDS: METOPROLOL SUCCINATE 25 MG TAB.SR.24H PO SCH (09:00)
[2016-04-26] MEDS: DOCUSATE SODIUM 100 MG CAPSULE PO SCH (09:38)
[2016-04-26] MEDS: CLOPIDOGREL BISULFATE 75 MG TABLET PO SCH (09:38)
[2016-04-26] MEDS: ASPIRIN 81 MG TAB.CHEW PO SCH (09:38)
[2016-04-26] MEDS: FUROSEMIDE 40 MG TABLET PO SCH (09:38)
[2016-04-26] MEDS: SPIRONOLACTONE 25 MG TABLET PO SCH (09:38)
[2016-04-26] MEDS: APIXABAN 2.5 MG TABLET PO SCH ×2 (09:41→18:16)
[2016-04-26] MEDS: INSULIN REGULAR, HUMAN 100 UNIT/ML 3 ML VIAL SQ PRN ×2 (12:14→21:16)
[2016-04-26 16:00] VITALS: BP 111/54
[2016-04-26] MEDS: ATORVASTATIN 40 MG TABLET PO SCH (18:16)
[2016-04-26] MEDS: HYDROCODONE/APAP 10/325MG 1 EA TABLET PO PRN (18:19)
[2016-04-26 20:00] VITALS: BP_SYST 103; BP_SYST 142; BP_DIAS 67; BP_DIAS 86
[2016-04-26] MEDS: INSULIN DETEMIR 100 UNIT/ML CARTRIDGE SQ SCH (21:16)
[2016-04-27 03:56] LABS: ADD UA MICROSCOPIC NO; KETONES,URINE NEGATIVE (NEGATIVE); LEUKOCYTE ESTERASE ,URINE NEGATIVE (NEGATIVE)
[2016-04-27] MEDS: BLOOD SUGAR DIAGNOSTIC 1 EACH STRIP IN SCH ×2 (05:32→11:54)
[2016-04-27 08:00] VITALS: BP 134/72
[2016-04-27] MEDS: CLOPIDOGREL BISULFATE 75 MG TABLET PO SCH (08:23)
[2016-04-27] MEDS: ASPIRIN 81 MG TAB.CHEW PO SCH (08:23)
[2016-04-27] MEDS: LEVOTHYROXINE SODIUM 100 MCG TABLET PO SCH (08:23)
[2016-04-27] MEDS: METOPROLOL SUCCINATE 25 MG TAB.SR.24H PO SCH (08:24)
[2016-04-27] MEDS: DOCUSATE SODIUM 100 MG CAPSULE PO SCH (08:24)
[2016-04-27 08:25] VITALS: BP 134/72
[2016-04-27] MEDS: DILTIAZEM HCL CD 240 MG PO SCH (08:25)
[2016-04-27] MEDS: APIXABAN 2.5 MG TABLET PO SCH (08:28)
[2016-04-27] MEDS ORDERED: FUROSEMIDE 40 MG TABLET PO SCH (09:00)
[2016-04-27] MEDS: SILVER SULFADIAZINE CREAM 25 GM TUBE TP SCH ×2 (09:00→17:02)
[2016-04-27 10:20] LABS: BASOPHILS % (AUTO) 0.6 % (0.0-2.0); DIFF TOTAL % 100 %; EOSINOPHILS # (AUTO) 0.2 /CMM (0.0-0.7); EOSINOPHILS % (AUTO) 3.6 % (0.0-6.0); HEMATOCRIT 26 % (39-51); HEMOGLOBIN 8.4 g/dL (13.5-17.5); LYMPHOCYTES # (AUTO) 1.1 /CMM (0.8-4.8); LYMPHOCYTES % (AUTO) 20.6 % (20.0-44.0); MEAN CORPUSCULAR HEMOGLOBIN 26 PG (26.0-33.0); MEAN CORPUSCULAR HGB CONC 32 g/dl (31.0-36.0); MEAN CORPUSCULAR VOLUME 83 fL (80-96); MONOCYTES # (AUTO) 0.4 /CMM (0.1-1.30); MONOCYTES % (AUTO) 7.3 % (2.0-12.0); NEUTROPHILS # (AUTO) 3.6 /CMM (1.8-8.9); NEUTROPHILS % (AUTO) 67.9 % (43.0-81.0); PLATELET COUNT (AUTO) 249 /CMM (150-450); RED BLOOD CELL COUNT(AUTO) 3.18 MIL/uL (4.5-6.0); WHITE BLOOD COUNT (AUTO) 5.3 K/uL (4.3-11.0)
[2016-04-27 10:44] LABS: CALCIUM, SERUM 8.7 mg/dL (8.5-10.1); CREATININE 1.2 mg/dL (0.6-1.3); PHOSPHORUS 3.5 mg/dL (2.5-4.9); POTASSIUM 3.6 mmol/L (3.5-5.1)
[2016-04-27] MEDS: INSULIN REGULAR, HUMAN 100 UNIT/ML 3 ML VIAL SQ PRN (11:24)
== END 2016-04-27 17:45 | DRG 981 ==
LOC: WOUND3 15:03 → MED 04-23 08:10 → WOUND3 04-25 10:00
PROVIDERS: ADMIT Podiatrist Foot & Ankle Surgery; ATTEND Nurse Practitioner Acute Care
PROC: 05H533Z Insertion of Infusion Device into Right Subclavian Vein, Percutaneous Approach (ICD-10-PCS; 2016-04-21)
PROC: 0KBV0ZZ Excision of Right Foot Muscle, Open Approach (ICD-10-PCS; principal; 2016-04-24 08:51)
DX: E11.69 Type 2 diabetes mellitus with other specified complication (principal); E43 Unspecified severe protein-calorie malnutrition; L03.115 Cellulitis of right lower limb; Z68.41 Body mass index [BMI] 40.0-44.9, adult; M86.8X7 Other osteomyelitis, ankle and foot; N17.0 Acute kidney failure with tubular necrosis; E11.40 Type 2 diabetes mellitus with diabetic neuropathy, unspecified; E11.51 Type 2 diabetes mellitus with diabetic peripheral angiopathy without gangrene; E11.621 Type 2 diabetes mellitus with foot ulcer; E66.01 Morbid (severe) obesity due to excess calories; E03.9 Hypothyroidism, unspecified; G47.33 Obstructive sleep apnea (adult) (pediatric); I34.0 Nonrheumatic mitral (valve) insufficiency; L97.519 Non-pressure chronic ulcer of other part of right foot with unspecified severity; M14.679 Charcot's joint, unspecified ankle and foot; I25.2 Old myocardial infarction; E87.6 Hypokalemia; E78.5 Hyperlipidemia, unspecified; E11.22 Type 2 diabetes mellitus with diabetic chronic kidney disease; I12.9 Hypertensive chronic kidney disease with stage 1 through stage 4 chronic kidney disease, or unspecified chronic kidney disease; N18.9 Chronic kidney disease, unspecified; E11.42 Type 2 diabetes mellitus with diabetic polyneuropathy; F17.210 Nicotine dependence, cigarettes, uncomplicated; E66.9 Obesity, unspecified; I25.10 Atherosclerotic heart disease of native coronary artery without angina pectoris; Z95.5 Presence of coronary angioplasty implant and graft; Z89.612 Acquired absence of left leg above knee; D64.9 Anemia, unspecified; K59.00 Constipation, unspecified
CPT/HCPCS: 36415; 73630-TC; 76770-TC; 80048-TC; 80202-TC; 81000-TC; 82570-TC; 82962-TC; 83735-TC; 84100-TC; 85025-TC; 87070-TC; 87081-TC; A6253; A6403; J1815; J2250; J3010; J3370; J7050; J7060

== ENCOUNTER 2016-05-03 19:53 | Inpatient (IN) | payer MEDICARE, BC ==
[~2016-05-03] VITALS: Ht 175.3 cm; Wt 129.7 kg
[~2016-05-03 19:53] MED LIST changes: +ATOR40TA PO; -ATOR80TA PO; +CARV12.52 PO; -CARV6.252 PO; +DILT240C2 PO; +HYDR-548 PO; +INSU100V27 SQ; +MIDAZOLAM HCL 2 MG/2ML VIAL ONE
[2016-05-03] MEDS ORDERED: IV SET PRIMARY PUMP SET 1 EA INFUS.SET MC ONE ×4 (19:59→22:45)
[2016-05-03] MEDS ORDERED: PROPOFOL 100 ML IV ONE ×3 (19:59→22:45)
[2016-05-03] MEDS ORDERED: IV NS 0.9% 1,000 ML BAG IV ONE (20:00)
[2016-05-03] MEDS ORDERED: MIDAZOLAM HCL 2 MG/2ML VIAL IV ONE (20:00)
--- NOTE | 2016-05-03 20:00 | NUR ---
STARTED DIPRIVAN ORDERED
--- NOTE | 2016-05-03 20:08 | NUR ---
PT ARRIVED INTUBATED ON THE FIELD WITH 7.0 @26CM MD DEYSI AT BEDSIDE. BILATERAL BREATH SOUNDS PRESENT AND GOOD COLOR CHANGE ON CAP. PT WAS PLACED R 16 500VT 100%O2 +5PEEP. [facility] VENT ALARMS ARE SET AUDIBLE AND DISCONNECTION ALARM VERIFIED. VENT PLUGGED INTO RED OUT. INITIAL SPUTUM, ABG PENDING, AND AWAITING XRAY. PT TOLERATING PROCEDURE AND NO ADVERSE REACTION Addendum: 05/03/16 at 2017 by EDGAR PALMA RT Amended: Links added.
[2016-05-03] MEDS ORDERED: IV NS 0.9% 1,000 ML ONE (20:14)
[2016-05-03] MEDS ORDERED: IV SET PRIMARY 1 EA INFUS.SET MC ONE (20:14)
[2016-05-03 20:22] LABS: BASOPHILS % (AUTO) 0.4 % (0.0-2.0); EOSINOPHILS % (AUTO) 0.2 % (0.0-6.0); HEMATOCRIT 23 % (39-51); HEMOGLOBIN 7.2 g/dL (13.5-17.5); LYMPHOCYTES # (AUTO) 2.2 /CMM (0.8-4.8); MEAN CORPUSCULAR HEMOGLOBIN 27 PG (26.0-33.0); MEAN CORPUSCULAR HGB CONC 32 g/dl (31.0-36.0); MEAN CORPUSCULAR VOLUME 85 fL (80-96); MONOCYTES # (AUTO) 0.6 /CMM (0.1-1.30); MONOCYTES % (AUTO) 5.1 % (2.0-12.0); NEUTROPHILS # (AUTO) 8.2 /CMM (1.8-8.9); NEUTROPHILS % (AUTO) 74.3 % (43.0-81.0); PLATELET COUNT (AUTO) 326 /CMM (150-450); RDW COEFFICIENT OF VARIATION 19.4 (11.5-15.0); RED BLOOD CELL COUNT(AUTO) 2.64 MIL/uL (4.5-6.0)
[2016-05-03 20:24] LABS: APPEARANCE,URINE Clear (CLEAR); BILIRUBIN,URINE Negative (NEGATIVE); BLOOD, URINE Negative Ery/uL (NEGATIVE); COLOR,URINE Yellow (YELLOW); KETONES,URINE Negative (NEGATIVE); LEUKOCYTE ESTERASE ,URINE Negative (NEGATIVE); NITRITE, URINE Negative (NEGATIVE); PROTEIN,URINE Trace mg/dl (NEGATIVE); UGLUCOSE Negative (NEGATIVE); UROBILINOGEN,URINE 0.2 EU/dL (0.2)
[2016-05-03 20:35] LABS: RBC,URINE NONE SEEN /HPF (0-2); WBC,URINE NONE SEEN /HPF (0-3)
[2016-05-03 20:36] LABS: ADD URINE CULTURE NO; BACTERIA,URINE None seen /HPF (None Seen); MUCUS,URINE Few /LPF (None Seen); SQUAMOUS EPITHELIAL CELL,UR Few /HPF (None Seen); URINE AMORPHOUS URATE Moderate /HPF (None Seen)
--- NOTE | 2016-05-03 20:37 | NUR ---
FAMILY AT BED SIDE
--- NOTE | 2016-05-03 20:38 | NUR ---
75 YO MALE BB RA FROM [facility]. 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 S/P INTUBATION, RETURN OF SPONTANEOUS CIRCULATION OCCURED, EMS TRANSPORED TO [facility] ED. PT IS NOTED TO BE OBESES WITH LEFT BKA, AND RIGHT FOOD WOUND. PT GOWNED, PLACED ON REPAIR MECHANIC. SKIN IS WARM AND DRY, RT AT BED SIDE FOR VENT SET UP; AC 16, TV 500, FIO2 100% PEEP 5. 16G LEFT AC STARTED, BLOOD SAMPLE OBTAINED AND SENT TO LAB. NOTED 18G RIGHT AC IV STARTED BY EMS. AWAITING ORDERS FROM PROVIDER, WILL CONTINUE TO MONITOR
--- NOTE | 2016-05-03 20:46 | NUR ---
ICU BED 253
[2016-05-03] MEDS ORDERED: FUROSEMIDE 40 MG/4 ML VIAL IV ONE (21:00)
[2016-05-03] MEDS ORDERED: PANTOPRAZOLE 80 MG in IV NS 0.9% 100 ML IV ONE (21:00)
[2016-05-03] MEDS ORDERED: MIDAZOLAM HCL 100 MG in IV NS 0.9% 80 ML IV PRN (21:00)
[2016-05-03] MEDS ORDERED: ASPIRIN 300 MG/SUPP.RECT RC ONE (21:00)
[2016-05-03] MEDS ORDERED: PANTOPRAZOLE 80 MG in IV NS 0.9% 500 ML IV ONE (21:00)
[2016-05-03 21:02] LABS: LACTIC ACID 3.4 mmol/L (0.4-2.0)
[2016-05-03] MEDS ORDERED: MIDAZOLAM 50 MG/10 ML VIAL ONE (21:02)
[2016-05-03] MEDS ORDERED: PANTOPRAZOLE 40 MG VIAL ONE (21:02)
[2016-05-03] MEDS ORDERED: FUROSEMIDE 40 MG/4 ML VIAL ONE ×2 (21:02→21:17)
[2016-05-03] MEDS ORDERED: IV NS 0.9% 500 ML IV ONE (21:02)
[2016-05-03] MEDS ORDERED: IV NS 0.9% 200 ML IV ONE (21:03)
[2016-05-03 21:10] LABS: ABG BASE EXCESS 1.3 mmol/L; ABG PCO2 46.4 mmHg (35.0-45.0); ABG PH 7.377 (7.350-7.450); ABG PO2 198.2 mmHg (75.0-100.0); ABG TOTAL HEMOGLOBIN 6.5 G/dL (13.5-18.0); AaDO2 468.4 mmHg; COHb 1.5 % (0.5-1.5); MetHb 0.7 % (0.0-1.5); O2Hb 96.8 % (94.0-97.0); PEEP,BG 5 cm H2O; SITE, ABG Left Radial; VT, ABG 500 mL
--- NOTE | 2016-05-03 21:15 | NUR ---
ADMIN PROTONIX BOLUS ORDERED
--- NOTE | 2016-05-03 21:20 | NUR ---
18G RIGHT HAND IV STARTED. MEDICATED PT ORDERED
[2016-05-03 21:23] LABS: CALCIUM, SERUM 8.3 mg/dL (8.5-10.1); CARBON DIOXIDE 27 mmol/L (21-32); CHLORIDE 100 mmol/L (98-107); CREATININE 1.7 mg/dL (0.6-1.3); GLUCOSE 197 mg/dL (74-106); POTASSIUM 4.5 mmol/L (3.5-5.1); SODIUM SERUM 135 mmol/L (136-145); UREA NITROGEN, BLOOD 35 mg/dL (7-18)
--- NOTE | 2016-05-03 21:25 | NUR ---
STOPED DIPRIVAN ORDERED, STARTED VERSED DRIP AT 3 MG
[2016-05-03 21:27] LABS: INR 1.11 (0.87-1.13); PROTHROMBIN TIME 11.7 SECS (9.5-12.7)
[2016-05-03] MEDS ORDERED: PIPERACILLIN /TAZOBACTAM 3.375 G in IV D5W 50 ML IV ONE (21:30)
[2016-05-03] MEDS ORDERED: VANCOMYCIN 1 GM in IV D5W 250 ML IV ONE (21:30)
[2016-05-03 21:33] VITALS: BP 101/54
[2016-05-03] MEDS ORDERED: VANCOMYCIN 1 GM VIAL ONE (21:33)
[2016-05-03] MEDS ORDERED: PIPERACILLIN /TAZOBACTAM 3.375 G VIAL IV ONE (21:33)
[2016-05-03] MEDS ORDERED: IV D5W 250 ML IV ONE (21:34)
[2016-05-03] MEDS ORDERED: IV D5W 50 ML IV ONE (21:34)
[2016-05-03 21:36] LABS: ALANINE AMINOTRANSFERASE 20 U/L (12-78); ALBUMIN 3.4 g/dL (3.4-5.0); ALKALINE PHOSPHATASE 107 U/L (46-116); ASPARTATE AMINOTRANSFERASE 21 U/L (15-37); B-TYPE NATRIURETIC PEPTIDE 5059 PG/ML (0-125); BILIRUBIN,DIRECT 0.1 mg/dL (0.0-0.2); BILIRUBIN,TOTAL 0.5 mg/dL (0.2-1.0); TOTAL PROTEIN, SERUM 7.9 g/dL (6.4-8.2)
--- NOTE | 2016-05-03 21:38 | NUR ---
PAGED DR GALLEGOS WHO IS TRAFFIC SURVEY TECHNICIAN FOR [email or web address]
[2016-05-03 21:50] LABS: TROPONIN I 1.563 ng/mL (0.00-0.056)
--- NOTE | 2016-05-03 21:52 | NUR ---
STARTED VANCOMYCIN IV ORDERED
--- NOTE | 2016-05-03 22:05 | NUR ---
REPORT GIVEN TO APARNA BANUELOS FOR CRYSTAL
--- NOTE | 2016-05-03 22:07 | NUR ---
REPAGED DR. GALLEGOS
--- NOTE | 2016-05-03 22:18 | NUR ---
TRANSPORTED PT WITH RT AND EMT WITHOUT INCIDENT
[2016-05-03] MEDS ORDERED: ONDANSETRON HCL/PF 4 MG/2 ML VIAL IVP PRN (22:30)
[2016-05-03] MEDS ORDERED: Z GUARD REMEDY 2 OZ OINT TP PRN (22:30)
[2016-05-03] MEDS ORDERED: MAGNESIUM HYDROXIDE 30 ML UDC PO PRN (22:30)
[2016-05-03] MEDS ORDERED: ZOLPIDEM TARTRATE 5 MG TABLET PO PRN (22:30)
[2016-05-03] MEDS ORDERED: HYDROCODONE/APAP 5/325MG 1 EACH TABLET PO PRN (22:30)
[2016-05-03] MEDS ORDERED: MAG HYDROX/AL HYDROX/SIMETH 30 ML UDC PO PRN (22:30)
[2016-05-03] MEDS ORDERED: LEVOFLOXACIN 500 MG /D5W 100ML 500 MG in PREMIX 1 EA IV SCH (22:30)
[2016-05-03] MEDS ORDERED: ACETAMINOPHEN 325 MG TABLET PO PRN (22:30)
[2016-05-03 22:40] VITALS: BP 116/55
[2016-05-03] MEDS: PROPOFOL 100 ML IV PRN (22:49)
[2016-05-03 23:00] VITALS: BP 113/71
[2016-05-03] MEDS ORDERED: HYDROCODONE/APAP 10/325MG 1 EA TABLET PO PRN (23:00)
[2016-05-03] MEDS ORDERED: SENNOSIDES 8.6 MG TABLET PO PRN (23:00)
[2016-05-03 23:24] VITALS: BP 113/71
[2016-05-03] MEDS ORDERED: LEVOFLOXACIN 500 MG /D5W 100ML 100 ML IV ONE (23:53)
[2016-05-04] VITALS (44 sets, daily range): BP systolic 96–118; BP diastolic 51–63
--- NOTE | 2016-05-04 | NUR ---
[place]IRPORT RAMP SUPERVISOR; ADMISSION NOTE: RECEIVED PT FROM AT AT 2230, PT IS INTUBATED AFTER FULL CARDIAC ARREST IN [place], ON VENT SETTING AC 16 TV 500 FIO2 50% PEEP 5 SATURATING 100%. VERSED DRIP STOPPED PER ORDERS DR GALLEGOS, SEDATED WITH DIPRIVAN PER PROTOCOL. RIGHT NARE GT CONNECTED TO LOW INTERMITTENT SUCTION. PIVs RAC #18, RH #18 AND ONE MORE INSERTED RFA #20. H/H IS LOW ORDERS TO GIVE PRBC WHEN IT READY. ALL ADMISSION ASSESSMENT DONE. FULL THICKNESS DIABETIC WOUND ON RIGHT FOOT, LEFT BELOW KNEE AMPUTATION. DRESSING APPLIED. ROTH CATH TO GRAVITY. SONUS RHYTHM WITH T WAVE DEPRESSED ON MONITOR. SEEN AND EXAMINED BY ROSY AT BEDSIDE. PT'S AT BEDSIDE CURRENT CONDITION DISCUSSED BY . ONGOING MONITORING...
[2016-05-04] MEDS ORDERED: BLOOD IV SET 1 EA INFUS.SET MC ONE ×2 (00:09→08:35)
[2016-05-04] MEDS ORDERED: IV NS 0.9% 250 ML IV ONE ×3 (00:09→08:35)
[2016-05-04] MEDS ORDERED: IV D5W 50 ML IV ONE (00:27)
[2016-05-04] MEDS ORDERED: PIPERACILLIN /TAZOBACTAM 3.375 G VIAL IV ONE (00:27)
[2016-05-04] MEDS ORDERED: PROPOFOL 100 ML IV ONE ×2 (01:55→05:36)
[2016-05-04] MEDS: PROPOFOL 100 ML IV PRN ×7 (01:58→22:30)
--- NOTE | 2016-05-04 02:09 | NUR ---
CELL TECHNICIAN: PT IN STABLE CONDITION, BLOOD TRANSFUSION ONGOING, NOT ANY ADVERSE REACTION NOTED. ON DIPRIVAN AT 30 MCG/KG/MIN, BP STABLE. CONTINUE ON PROTONIX DRIP. ONGOING MONITORING....
[2016-05-04] MEDS ORDERED: FUROSEMIDE 20 MG/2 ML VIAL IV SCH (03:00)
--- NOTE | 2016-05-04 03:21 | NUR ---
ATTENDANT COIN OPERATED LAUNDRY: POST ONE UNIT OF TRANSFUSION, LASIX 20 MG IV GIVEN, WILL GIVE ANOTHER 20 MG IV AFTER THE 2ND UNIT.
[2016-05-04] MEDS: PIPERACILLIN /TAZOBACTAM 3.375 G in IV D5W 50 ML IV SCH ×3 (04:42)
[2016-05-04] MEDS ORDERED: SECONDARY IV SET 1 EA INFUS.SET MC ONE ×3 (04:43→20:26)
[2016-05-04 05:22] LABS: CALCIUM, SERUM 7.9 mg/dL (8.5-10.1); CREATININE 1.5 mg/dL (0.6-1.3); MAGNESIUM 2.3 mg/dL (1.8-2.4); PHOSPHORUS 4.6 mg/dL (2.5-4.9); POTASSIUM 3.8 mmol/L (3.5-5.1)
[2016-05-04] MEDS ORDERED: PANTOPRAZOLE 40 MG VIAL ONE (05:37)
[2016-05-04] MEDS ORDERED: IV NS 0.9% 500 ML IV ONE (05:37)
[2016-05-04] MEDS ORDERED: FUROSEMIDE 20 MG/2 ML VIAL ONE (05:47)
[2016-05-04] MEDS: PANTOPRAZOLE 80 MG in IV NS 0.9% 500 ML IV PRN ×2 (05:53→17:23)
[2016-05-04] MEDS ORDERED: FUROSEMIDE 20 MG/2 ML VIAL IV ONE (06:00)
[2016-05-04] MEDS ORDERED: PANTOPRAZOLE 40 MG TABLET.DR PO SCH (07:30)
[2016-05-04] MEDS: LEVOTHYROXINE SODIUM 100 MCG TABLET PO SCH (07:30)
[2016-05-04] MEDS: INSULIN LISPRO/ASPART 100 UNIT/ML CARTRIDGE SQ SCH ×3 (08:00→17:57)
[2016-05-04 08:02] LABS: BASOPHILS % (AUTO) 0.5 % (0.0-2.0); EOSINOPHILS # (AUTO) 0.1 /CMM (0.0-0.7); EOSINOPHILS % (AUTO) 0.9 % (0.0-6.0); HEMATOCRIT 23 % (39-51); HEMOGLOBIN 7.3 g/dL (13.5-17.5); LYMPHOCYTES # (AUTO) 1.3 /CMM (0.8-4.8); LYMPHOCYTES % (AUTO) 20.4 % (20.0-44.0); MEAN CORPUSCULAR HEMOGLOBIN 28 PG (26.0-33.0); MEAN CORPUSCULAR HGB CONC 32 g/dl (31.0-36.0); MEAN CORPUSCULAR VOLUME 85 fL (80-96); MONOCYTES # (AUTO) 0.5 /CMM (0.1-1.30); MONOCYTES % (AUTO) 7.1 % (2.0-12.0); NEUTROPHILS # (AUTO) 4.5 /CMM (1.8-8.9); NEUTROPHILS % (AUTO) 71.1 % (43.0-81.0); PLATELET COUNT (AUTO) 228 /CMM (150-450); RDW COEFFICIENT OF VARIATION 18.5 (11.5-15.0); RED BLOOD CELL COUNT(AUTO) 2.65 MIL/uL (4.5-6.0); WHITE BLOOD COUNT (AUTO) 6.4 K/uL (4.3-11.0)
[2016-05-04] MEDS: ASPIRIN 81 MG TAB.CHEW PO SCH (08:11)
--- NOTE | 2016-05-04 08:29 | NUR ---
WOUND CARE CONSULT: PATIENT SEEN AND SKIN ASSESSMENT DONE. PATIENT INTUBATED, WITH NGT TO GRAVITY, IMMOBILE, DELMIS 7, BARIMAXX BED WITH ETS AIR ORDERED BY NURSING STAFF AND WILL BE PLACED WHEN AVAILABLE IN THE UNIT, HAS F/C, RIGHT AKJared. SEE TODAY'S SKIN ASSESSMENT IN PCS ALONG WITH RECOMMENDATIONS DISCUSSED WITH NURSING STAFF INCLUDING MOISTURE PROTECTION WITH Z GUARD ORDERED AND PRESSURE PREVENTION, TURN AND REPOSITION EVERY 2 HRS PATIENT CONDITION PERMITS, OFFLOADING. MD IN AGREEMENT WITH PLAN OF CARE. Addendum: 05/04/16 at 0832 by GAIL FERNANDEZ WNDNU Amended: Links added.
[2016-05-04] MEDS ORDERED: VANCOMYCIN 1.5 GM in IV D5W 500 ML IV ONE (08:30)
[2016-05-04] MEDS: INSULIN DETEMIR 100 UNIT/ML CARTRIDGE SQ SCH (08:34)
[2016-05-04] MEDS ORDERED: METOPROLOL SUCCINATE 25 MG TAB.SR.24H PO SCH (09:00)
[2016-05-04] MEDS ORDERED: SPIRONOLACTONE 25 MG TABLET PO SCH ×2 (09:00)
[2016-05-04] MEDS ORDERED: ATORVASTATIN 40 MG TABLET PO SCH (09:00)
[2016-05-04] MEDS ORDERED: LISINOPRIL (5MG) 5 MG TABLET PO SCH (09:00)
[2016-05-04] MEDS ORDERED: CARVEDILOL 12.5 MG TABLET PO SCH (09:00)
[2016-05-04] MEDS ORDERED: DILTIAZEM HCL CD 240 MG PO SCH (09:00)
[2016-05-04] MEDS ORDERED: BUMETANIDE INJ 8 MG in IV NS 0.9% 48 ML IV ONE (09:30)
[2016-05-04] MEDS ORDERED: IV SET PRIMARY PUMP SET 1 EA INFUS.SET MC ONE ×3 (09:52→14:12)
[2016-05-04 10:15] LABS: ABG BASE EXCESS 2.9 mmol/L; ABG OXYGEN SATURATION 92.8 % (92.0-98.5); ABG PCO2 42.5 mmHg (35.0-45.0); ABG PH 7.429 (7.350-7.450); AaDO2 167.3 mmHg; COHb 1.3 % (0.5-1.5); MetHb 1.4 % (0.0-1.5); O2Hb 90.3 % (94.0-97.0); PEEP,BG 5 cm H2O; SITE, ABG Left Radial; VT, ABG 500 mL
[2016-05-04] MEDS ORDERED: FEE PK DOSING 1 MIN EA MC ONE (13:21)
[2016-05-04] MEDS: POTASSIUM CL. PREMIX PERIPHER. 50 ML IV SCH ×2 (14:17→15:12)
--- NOTE | 2016-05-04 14:48 | NUR ---
AGRICULTURAL EQUIPMENT MECHANIC NOTE 0720: Received patient sedated. With ETT 7.0/26 cm lipline, to vent, AC 16 Vt 500 50% FIO2 PEEP 5, tolerated at this time, Sat 100%. With 3PIVs intact. On Diprivan @ 30mcg, will titrate accordingly. On Protonix drip, infusing as ordered. SR 70's on the monitor. With NGT to LIS, auscultated, noted with gurgling sound in the stomach region when introduced air. Noted with minimal brown residuals. Patient remained NPO. With Price cath intact, noted with large amount of clear yellow urine drained to BSD. 0840: S/E by wound consult, said she will call Dr. Langford for the right foot wound. 0920: S/E by dr. Finney, aware fore the ABG, patient changed FIO2 to 40%. Made MD aware re: sedation vacation. Patient agitated and pulse higher without sedation and trying to pull out ETT. 1010: S/E by Dr. Proctor. 1020: S/E by Jacqueline MENDOZA, awaiting for 2 units of PRBC ordered by Dr. Carvalho, agreed for the order. 1100: S/E by Dr. Loredo, no new order at this time. 1430: Family at bedside, aware for the POC for EGD, signed consents. Surgery people at bedside, for prep. Awaiting GI for EGD.
[2016-05-04] MEDS ORDERED: ANESTHESIA TRAY IN PYXIS 1 EA TRAY MC ONE (15:55)
[2016-05-04] MEDS ORDERED: MEROPENEM 500 MG in IV NS 0.9% 50 ML IV SCH (19:00)
[2016-05-04 19:18] LABS: CALCIUM, SERUM 7.4 mg/dL (8.5-10.1); CREATININE 1.6 mg/dL (0.6-1.3); POTASSIUM 3.7 mmol/L (3.5-5.1)
--- NOTE | 2016-05-04 19:45 | NUR ---
INTERNAL COMBUSTION ENGINE ASSEMBLER NOTES VANCO TROUGH 32, HOLD 2000 DOSE PER PHARMACY.
[2016-05-04] MEDS ORDERED: VANCOMYCIN 1.25 GM in IV D5W 500 ML IV SCH (20:00)
--- NOTE | 2016-05-04 20:00 | NUR ---
CAMERA STORAGE CLERK NOTES RECEIVED PT IN BED, SEDATED. TELE READS SR AT 67 BPM. NO ACUTE S/S OF DISTRESS. ON VENT VIA 7.0 ETT, 26 CM AT LIP, SETTINGS OF AC 16, TV 500, FIO2 40%, PEEP 5, KOREY WELL. NGT AT RIGHT NARE CONNECTED TO LIS WITH DARK COUGH GROUND OUTPUT. ROTH CATH IN PLACE, DRAINING WELL TO PALE YELLOW URINE. IV SITES AT RIGHT AC 18G, RIGHT HAND 18G AND RIGHT FA 20G RUNNING DIPRIVAN AT 40 MCG/KG/MIN, PROTONIX AT 8 MG/HR AND NS AT TKO. BILATERAL SOFT WRIST RESTRAINTS IN PLACE DUE TO PATIENT SAFETY. NPO AT THIS TIME. HOB ELEVATED, SIDE RAILS X3, BED LOW AND LOCKED.
[2016-05-04] MEDS: MEROPENEM 500 MG in IV NS 0.9% 50 ML IV SCH (20:34)
[2016-05-05] VITALS (36 sets, daily range): BP systolic 100–142; BP diastolic 53–71
[2016-05-05] MEDS: PROPOFOL 100 ML IV PRN ×9 (00:16→22:15)
[2016-05-05] MEDS: PANTOPRAZOLE 80 MG in IV NS 0.9% 500 ML IV PRN ×3 (02:54→22:31)
--- NOTE | 2016-05-05 04:00 | NUR ---
RUBBER BOOTS AND SHOES REPAIRER NOTES PATIENT GIVEN BED BATH, LINENS CHANGED, ORAL/ETT SUCTIONING RENDERED. PT TRANSFERRED TO [facility] BED. VSS. PT REMAINS SEDATED.
[2016-05-05 05:11] LABS: ALBUMIN 2.6 g/dL (3.4-5.0); BILIRUBIN,TOTAL 0.6 mg/dL (0.2-1.0); CALCIUM, SERUM 7.9 mg/dL (8.5-10.1); CREATININE 1.6 mg/dL (0.6-1.3); MAGNESIUM 2.1 mg/dL (1.8-2.4); PHOSPHORUS 4.1 mg/dL (2.5-4.9); POTASSIUM 3.4 mmol/L (3.5-5.1); TOTAL PROTEIN, SERUM 6.7 g/dL (6.4-8.2)
[2016-05-05 05:18] LABS: BASOPHILS % (AUTO) 0.3 % (0.0-2.0); EOSINOPHILS % (AUTO) 0.4 % (0.0-6.0); HEMATOCRIT 29 % (39-51); HEMOGLOBIN 9.3 g/dL (13.5-17.5); LYMPHOCYTES # (AUTO) 1.2 /CMM (0.8-4.8); LYMPHOCYTES % (AUTO) 15.1 % (20.0-44.0); MEAN CORPUSCULAR HEMOGLOBIN 28 PG (26.0-33.0); MEAN CORPUSCULAR HGB CONC 33 g/dl (31.0-36.0); MEAN CORPUSCULAR VOLUME 85 fL (80-96); MONOCYTES # (AUTO) 0.7 /CMM (0.1-1.30); MONOCYTES % (AUTO) 8.9 % (2.0-12.0); NEUTROPHILS # (AUTO) 5.8 /CMM (1.8-8.9); NEUTROPHILS % (AUTO) 75.3 % (43.0-81.0); PLATELET COUNT (AUTO) 237 /CMM (150-450); RDW COEFFICIENT OF VARIATION 17.7 (11.5-15.0); RED BLOOD CELL COUNT(AUTO) 3.36 MIL/uL (4.5-6.0); WHITE BLOOD COUNT (AUTO) 7.7 K/uL (4.3-11.0)
[2016-05-05 05:19] LABS: TROPONIN I 1.451 ng/mL (0.00-0.056)
[2016-05-05] MEDS ORDERED: IV NS 0.9% 250 ML IV ONE (05:49)
[2016-05-05] MEDS ORDERED: BUMETANIDE INJ 8 MG in IV NS 0.9% 48 ML IV ONE (07:30)
[2016-05-05] MEDS: INSULIN LISPRO/ASPART 100 UNIT/ML CARTRIDGE SQ SCH ×3 (08:00→17:40)
[2016-05-05] MEDS ORDERED: POTASSIUM CHLORIDE 20 MEQ TAB.PRT.SR PO SCH (08:00)
[2016-05-05 08:31] LABS: ABG BASE EXCESS 3.5 mmol/L; ABG PCO2 38.4 mmHg (35.0-45.0); ABG PO2 87.2 mmHg (75.0-100.0); ABG TOTAL HEMOGLOBIN 9.9 G/dL (13.5-18.0); AaDO2 153.8 mmHg; COHb 0.5 % (0.5-1.5); MetHb 1.2 % (0.0-1.5); O2Hb 94.4 % (94.0-97.0); PEEP,BG 5 cm H2O; SITE, ABG Left Brachial; VT, ABG 500 mL
[2016-05-05] MEDS: MEROPENEM 500 MG in IV NS 0.9% 50 ML IV SCH ×2 (08:50→19:39)
[2016-05-05] MEDS: INSULIN DETEMIR 100 UNIT/ML CARTRIDGE SQ SCH (08:53)
[2016-05-05] MEDS: LEVOTHYROXINE SODIUM 100 MCG TABLET PO SCH (08:58)
[2016-05-05] MEDS ORDERED: IV SET PRIMARY PUMP SET 1 EA INFUS.SET MC ONE ×2 (09:02→22:11)
[2016-05-05] MEDS: POTASSIUM CHLORIDE 20 MEQ POWDER PACKET GT SCH ×3 (10:12→12:00)
[2016-05-05] MEDS: CLOPIDOGREL BISULFATE 75 MG TABLET PO SCH (12:54)
[2016-05-05] MEDS: ASPIRIN 81 MG TAB.CHEW PO SCH (12:54)
[2016-05-05] MEDS ORDERED: VANCOMYCIN 1.5 GM in IV D5W 500 ML IV SCH (13:00)
[2016-05-05] MEDS: MUPIROCIN OINT 2% 22 GM TUBE TP SCH (13:43)
[2016-05-05] MEDS ORDERED: GLYTROL 1,000 ML BAG GT PRN (18:00)
[2016-05-05] MEDS ORDERED: INSULIN REGULAR, HUMAN 100 UNIT/ML 3 ML VIAL SQ PRN (18:00)
[2016-05-05] MEDS ORDERED: DEXTROSE 50%-WATER 50 ML DISP.SYRIN IV PRN (18:00)
[2016-05-05] MEDS: BLOOD SUGAR DIAGNOSTIC 1 EACH STRIP IN SCH (18:05)
--- NOTE | 2016-05-05 18:33 | NUR ---
NURSERY NURSE NOTE 0720: Received patient comfortable, sedated. With ETT to vent, tolerated settings at this time. Noted with moderate white thin to thick secretions. No any respiratory distress noted. With PIVs intact, on Diprivan @ 40mcg, will titrate accordingly. Also on Protonix drip, infusing as ordered. With NGT intact, connected to LIS, noted with dark greenish to brownish secretions.With holliday cath intact, noted with clear yellow urine drained to BSD. With No S/S hypo/hyperglycemia noted at this time. S/E by Dr. Carvalho, with order for Bumex and KCl obtained. 0930: Rendered sedation vacation, noted with agitation after 15 minutes, placed back on Diprivan. 1000: S/E by Dr. Finney, no new order at this time, will do SIMV trial in am. 1200: Family at bedside, aware for the POC, verbalized understanding. 1300: S/E by Danya MENDOZA, and agreed to start on ASA and Plavix, given as ordered. Also ordered for diet consult to start on GT feeding. 1730: No Manager Technical Support came even after leaving message to department, made Danya MENDOZA aware, obtained order to start Glytrol @ 35mL/hr with goal of 80mL/hr and start on mild SS and hold Lispro with meals. BS 108 at this time. 1800: Done with Bumex drip, noted with large amount of pale yellow urine drained to BSD.
[2016-05-05 19:35] LABS: MAGNESIUM 1.9 mg/dL (1.8-2.4); POTASSIUM 3.3 mmol/L (3.5-5.1)
--- NOTE | 2016-05-05 19:45 | NUR ---
LATHE MECHANIC NOTES RECEIVED PT IN BED, SEDATED. TELE READS SR AT 63 BPM. NO ACUTE S/S OF DISTRESS. ON VENT VIA 7.0 ETT, 26 CM AT LIP, SETTINGS OF AC 16, TV 500, FIO2 40%, PEEP 5, KOREY WELL. NGT AT RIGHT NARE CLAMPED. ROTH CATH IN PLACE, DRAINING WELL TO PALE YELLOW URINE. IV SITES AT RIGHT AC 18G, RIGHT HAND 18G AND RIGHT FA 20G RUNNING DIPRIVAN AT 50 MCG/KG/MIN, PROTONIX AT 8 MG/HR AND NS AT TKO. BILATERAL SOFT WRIST RESTRAINTS IN PLACE DUE TO PATIENT SAFETY. NPO AT THIS TIME. HOB ELEVATED, SIDE RAILS X3, BED LOW AND LOCKED.
[2016-05-05] MEDS ORDERED: VANCOMYCIN 1.25 GM in IV D5W 500 ML IV SCH (20:00)
--- NOTE | 2016-05-05 21:27 | NUR ---
EQUINE BREEDER NOTES HELD VANCO AT 1999 DUE TO TROUGH LEVEL OF 21.
[2016-05-05] MEDS ORDERED: POTASSIUM CHLORIDE 20 MEQ POWDER PACKET ONE (21:28)
[2016-05-05] MEDS ORDERED: POTASSIUM CHLORIDE 20 MEQ POWDER PACKET GT ONE (21:30)
--- NOTE | 2016-05-05 21:30 | NUR ---
ROUTE PROCESS ADMINISTRATOR NOTES POTASSIUM LEVEL OF 3.3, DR GALLEGOS MADE AWARE, NEW ORDER RECEIVED FOR 30 MEQS OF KCl VIA GT ONE TIME.
[2016-05-06] VITALS (30 sets, daily range): BP systolic 116–163; BP diastolic 49–107
[2016-05-06] MEDS: PROPOFOL 100 ML IV PRN ×4 (00:20→08:10)
[2016-05-06] MEDS: BLOOD SUGAR DIAGNOSTIC 1 EACH STRIP IN SCH ×3 (00:22→12:41)
[2016-05-06] MEDS: MUPIROCIN OINT 2% 22 GM TUBE TP SCH ×2 (00:22→13:25)
[2016-05-06] MEDS ORDERED: IV NS 0.9% 250 ML IV ONE (04:00)
--- NOTE | 2016-05-06 04:22 | NUR ---
GREASE MONKEY NOTES PT GIVEN BED BATH, LINENS CHANGED, RIGHT FOOT WOUND CARE RENDERED, ORAL/ETT SUCTION AND CARE PROVIDED. VSS. NO S/S OF PAIN.
[2016-05-06 04:45] LABS: BASOPHILS % (AUTO) 0.4 % (0.0-2.0); EOSINOPHILS # (AUTO) 0.1 /CMM (0.0-0.7); EOSINOPHILS % (AUTO) 1.2 % (0.0-6.0); HEMATOCRIT 32 % (39-51); HEMOGLOBIN 10.5 g/dL (13.5-17.5); LYMPHOCYTES # (AUTO) 1.8 /CMM (0.8-4.8); LYMPHOCYTES % (AUTO) 24.4 % (20.0-44.0); MEAN CORPUSCULAR HEMOGLOBIN 28 PG (26.0-33.0); MEAN CORPUSCULAR HGB CONC 33 g/dl (31.0-36.0); MEAN CORPUSCULAR VOLUME 86 fL (80-96); MONOCYTES # (AUTO) 0.6 /CMM (0.1-1.30); MONOCYTES % (AUTO) 8.4 % (2.0-12.0); NEUTROPHILS % (AUTO) 65.6 % (43.0-81.0); PLATELET COUNT (AUTO) 260 /CMM (150-450); RDW COEFFICIENT OF VARIATION 18.6 (11.5-15.0); RED BLOOD CELL COUNT(AUTO) 3.74 MIL/uL (4.5-6.0); WHITE BLOOD COUNT (AUTO) 7.6 K/uL (4.3-11.0)
[2016-05-06 05:00] LABS: ALBUMIN 2.6 g/dL (3.4-5.0); BILIRUBIN,TOTAL 0.5 mg/dL (0.2-1.0); CREATININE 1.5 mg/dL (0.6-1.3); MAGNESIUM 1.9 mg/dL (1.8-2.4); POTASSIUM 3.5 mmol/L (3.5-5.1); TOTAL PROTEIN, SERUM 6.8 g/dL (6.4-8.2)
--- NOTE | 2016-05-06 05:00 | NUR ---
COMPUTER PATTERNMAKER NOTES GASTRIC RESIDUAL OF 70 ML. TUBE FEEDING RATE INCREASED TO 50 ML/HR.
[2016-05-06 05:06] LABS: TROPONIN I 1.272 ng/mL (0.00-0.056)
[2016-05-06] MEDS: LEVOTHYROXINE SODIUM 100 MCG TABLET PO SCH (08:09)
[2016-05-06] MEDS: MEROPENEM 500 MG in IV NS 0.9% 50 ML IV SCH (08:10)
[2016-05-06] MEDS ORDERED: BUMETANIDE INJ 8 MG in IV NS 0.9% 48 ML IV ONE (09:00)
[2016-05-06] MEDS: PANTOPRAZOLE 80 MG in IV NS 0.9% 500 ML IV PRN (09:03)
[2016-05-06] MEDS: ASPIRIN 81 MG TAB.CHEW PO SCH (09:18)
[2016-05-06] MEDS: CLOPIDOGREL BISULFATE 75 MG TABLET PO SCH (09:18)
[2016-05-06] MEDS: DAKINS QUARTER STRENGTH (0.125%) 480 ML BOTTLE TOP SCH (09:19)
[2016-05-06] MEDS: POTASSIUM CHLORIDE 20 MEQ TAB.PRT.SR PO SCH ×4 (09:23→12:39)
[2016-05-06] MEDS: INSULIN DETEMIR 100 UNIT/ML CARTRIDGE SQ SCH (09:25)
--- NOTE | 2016-05-06 09:30 | NUR ---
PT PLACED ON SIMV PER MD ORDER. KOREY VYAS ALARMS ADJUSTED. Addendum: 05/06/16 at 1013 by ROSALES SHAW RT Amended: Links added.
[2016-05-06] MEDS ORDERED: DC PROPOFOL WHEN EXTUBATED XX PRN (10:00)
[2016-05-06] MEDS: VANCOMYCIN 1.25 GM in IV D5W 500 ML IV SCH ×2 (10:00→11:14)
[2016-05-06] MEDS ORDERED: HYDROCODONE/APAP 10/325MG 1 EA TABLET PO PRN (10:00)
[2016-05-06 10:53] LABS: ABG BASE EXCESS 7.6 mmol/L; ABG OXYGEN SATURATION 95.6 % (92.0-98.5); ABG PCO2 43.3 mmHg (35.0-45.0); ABG PH 7.484 (7.350-7.450); ABG PO2 80.4 mmHg (75.0-100.0); ABG TOTAL HEMOGLOBIN 11.4 G/dL (13.5-18.0); COHb 0.8 % (0.5-1.5); MetHb 0.9 % (0.0-1.5); PEEP,BG 4 cm H2O; SITE, ABG Right Radial; VENT MODE, BG SIMV PSV 12; VT, ABG 500 mL
[2016-05-06 12:16] LABS: CREATININE, URINE 87.7 MG/DL (30.0-125.0)
[2016-05-06] MEDS: SUCRALFATE 1 G/10 ML UDC GT SCH ×2 (12:39→17:39)
[2016-05-06] MEDS ORDERED: DEXTROSE 50%-WATER 50 ML DISP.SYRIN IV PRN (16:30)
[2016-05-06] MEDS: BLOOD SUGAR DIAGNOSTIC 1 EACH STRIP VI SCH ×2 (17:41→21:13)
[2016-05-06] MEDS: PANTOPRAZOLE 40 MG VIAL IV SCH (20:24)
[2016-05-06] MEDS: *INSULIN REGULAR(HUMULIN R)HUM 100 UNIT/ML VIAL SQ PRN (21:15)
--- NOTE | 2016-05-06 21:23 | NUR ---
CANTEEN OPERATOR DF PT A/OX2 ORIENTED TO PERSON/SITUATION. CALM,COOPERATIVE, FOLLOWS COMMANDS.ON N/C @3LPM WITH SATURATION OF 98 NSR RATE OF 68. PT S/P EXTUBATION TODAY STABLE,VSS, NAD NOTED. PT EATING CRACKERS, SIPS OF WATER S DIFFICULTY. PT HAS DIET ORDERED FOR THE AM.
[2016-05-07] VITALS (18 sets, daily range): BP systolic 106–141; BP diastolic 53–79
[2016-05-07] MEDS: SUCRALFATE 1 G/10 ML UDC GT SCH ×4 (00:13→17:13)
[2016-05-07] MEDS: MUPIROCIN OINT 2% 22 GM TUBE TP SCH ×2 (00:13→12:02)
--- NOTE | 2016-05-07 03:57 | NUR ---
CUTLET MAKER PORK DF TOTAL CARE DONE WITH GOOD PT TOLERANCE.PT HAD 1 SOFT FORMED BM X1.VSS.NAD NOTED.
[2016-05-07 04:40] LABS: BASOPHILS % (AUTO) 0.2 % (0.0-2.0); EOSINOPHILS # (AUTO) 0.2 /CMM (0.0-0.7); EOSINOPHILS % (AUTO) 2.4 % (0.0-6.0); HEMATOCRIT 35 % (39-51); HEMOGLOBIN 11.3 g/dL (13.5-17.5); LYMPHOCYTES # (AUTO) 1.4 /CMM (0.8-4.8); MEAN CORPUSCULAR HEMOGLOBIN 28 PG (26.0-33.0); MEAN CORPUSCULAR HGB CONC 32 g/dl (31.0-36.0); MEAN CORPUSCULAR VOLUME 86 fL (80-96); MONOCYTES # (AUTO) 0.6 /CMM (0.1-1.30); MONOCYTES % (AUTO) 7.2 % (2.0-12.0); NEUTROPHILS # (AUTO) 6.2 /CMM (1.8-8.9); NEUTROPHILS % (AUTO) 73.2 % (43.0-81.0); PLATELET COUNT (AUTO) 273 /CMM (150-450); RDW COEFFICIENT OF VARIATION 18.5 (11.5-15.0); RED BLOOD CELL COUNT(AUTO) 4.05 MIL/uL (4.5-6.0); WHITE BLOOD COUNT (AUTO) 8.4 K/uL (4.3-11.0)
[2016-05-07 04:51] LABS: ALBUMIN 2.6 g/dL (3.4-5.0); BILIRUBIN,TOTAL 0.5 mg/dL (0.2-1.0); CREATININE 1.3 mg/dL (0.6-1.3); MAGNESIUM 1.8 mg/dL (1.8-2.4); POTASSIUM 3.3 mmol/L (3.5-5.1); TOTAL PROTEIN, SERUM 6.9 g/dL (6.4-8.2)
[2016-05-07] MEDS: BLOOD SUGAR DIAGNOSTIC 1 EACH STRIP VI SCH ×4 (06:56→21:32)
[2016-05-07] MEDS: INSULIN REGULAR, HUMAN 100 UNIT/ML 3 ML VIAL SQ PRN ×3 (06:57→17:17)
--- NOTE | 2016-05-07 07:28 | NUR ---
INITIAL RELIABILITY TECHNICIAN NOTE RCVD PT AWAKE AND ALERT TO SELF, SHOWING NO S/O DISTRESS OR C/O PAIN AT THIS TIME. SR ON TELE 67, GOOD SATURATION (100% RA) O2 DISCONTINUED. ROTH IN PLACE DRAINING CLEAR, YELLOW URINE. RIGHT HAND #18 C/D/I/PATENT NO S/O INFILTRATION OR PHLEBITIS OBSERVED UPON FLUSHING. RIGHT FOOT DRESSING C/D/I. PT WAS REPOSITIONED. WILL CONTINUE TO MONITOR PT FOR SAFETY AND COMFORT.CALL LIGHT WITHIN REACH. BED IN LOW AND LOCKED POSITION.
[2016-05-07] MEDS: LEVOTHYROXINE SODIUM 100 MCG TABLET PO SCH (08:12)
[2016-05-07] MEDS: ASPIRIN 81 MG TAB.CHEW PO SCH (08:12)
[2016-05-07] MEDS: CLOPIDOGREL BISULFATE 75 MG TABLET PO SCH (08:12)
[2016-05-07] MEDS: PANTOPRAZOLE 40 MG VIAL IV SCH ×2 (08:12→21:31)
[2016-05-07] MEDS: INSULIN DETEMIR 100 UNIT/ML CARTRIDGE SQ SCH (08:15)
[2016-05-07] MEDS: DAKINS QUARTER STRENGTH (0.125%) 480 ML BOTTLE TOP SCH (08:16)
[2016-05-07] MEDS: POTASSIUM CHLORIDE 20 MEQ TAB.PRT.SR PO SCH ×3 (09:24→11:49)
[2016-05-07] MEDS: FUROSEMIDE 40 MG TABLET PO SCH (09:24)
--- NOTE | 2016-05-07 16:11 | NUR ---
RIVETING MACHINE OPERATOR AUTOMATIC NOTE BED BATH GIVEN, SPOUSE AT BEDSIDE, PT WAS REPOSITIONED AND MADE COMFORTABLE IN BED. LINENS CHANGED.
--- NOTE | 2016-05-07 18:05 | NUR ---
TRANSFER SALES MGR NOTE PT TRANSFERRED TO GO VIA BED UNDER TELE ACUITY FOLLOWING ACLS PROTOCOL. SHOWING NO S/O DISTRESS OR C/O PAIN. PT'S FAMILY AT BEDSIDE. CONTINUES TO TOLERATE RA SATURATION 100%. ROTH EMPTIED AND IN PLACE DRAINING YELLOW URINE. RIGHT HAND #18 C/D/I/PATENT. SHOWING NO S/O INFILTRATION OR PHLEBITIS UPON FLUSHING. REPORT GIVEN TO VIN MEHTA OVER THE PHONE.
--- NOTE | 2016-05-07 18:08 | NUR ---
HARNESS CUTTER NOTE RECEIVED PATIENT FROM ICU ALERT , ORIENTED X2 . ON TELE SR 72 HOSPITAL ORIENTATION DONE ,VS TAKEN, BED IN LOWEST AD LOOKED POSITION CALL LIGHT WITHIN REACH, WITH F\C TO GRAVITY , RT FOOT WITH DRESSINGS INTACT , FAMILY AT BEDSIDE ALL NEEDS ATTENDED , WILL CONT TO MONITOR CLOSELY
--- NOTE | 2016-05-07 18:40 | NUR ---
SOCK DRIER NOTE ALL NEEDS ATTENDED, HAVING DINNER , ABLE TO EAT SELF FAMILY AT BEDSIDE WILL CONT TO MONITOR CLOSELY ON BERYMAX BED, RT HAND HL INTACT NO S\INFECTION
--- NOTE | 2016-05-07 19:25 | NUR ---
RN INITIAL NOTE RECEIVED PT IN NO ACUTE DISTRESS IN BED. PT IS A/O X 4 AND ABLE TO MAKE NEEDS KNOWN. PT IS ON RA AND TOLERATING WELL WITH O2 SAT @ 98%. PT IS ON TELE WITH SR ON THE MONITOR. PT HAS F/C THAT IS CLEAN DRY INTACT AND PATENT WITH CLEAR YELLOW URINE DRAINING. PT HAS RHAND 18G THAT IS CLEAN DRY INTACT AND PATENT WITH SALINE FLUSH. IV IS SALINE LOCKED. PT NOT C/O ANY SOB, DIFFICULTY BREATHING OR PAIN AT THIS TIME. BED IN LOW LOCK POSITION WITH RAILS UP X 2 .CALL LIGHT WITHIN REACH AND ALL SAFETY MEASURES ENSURED. WILL CONTINUE TO MONITOR PT.
[2016-05-07] MEDS ORDERED: TEMAZEPAM 15 MG CAPSULE PO PRN (22:00)
[2016-05-07] MEDS ORDERED: VANCOMYCIN 1.25 GM in IV D5W 500 ML IV SCH (23:00)
[2016-05-07] MEDS ORDERED: IV SET PRIMARY PUMP SET 1 EA INFUS.SET MC ONE (23:28)
[2016-05-07] MEDS ORDERED: SECONDARY IV SET 1 EA INFUS.SET MC ONE (23:29)
[2016-05-07] MEDS ORDERED: IV NS 0.9% 250 ML IV ONE (23:29)
[2016-05-07] MEDS ORDERED: TEMAZEPAM 15 MG CAPSULE ONE (23:35)
[2016-05-08] VITALS: BP 116/67
[2016-05-08] MEDS: MUPIROCIN OINT 2% 22 GM TUBE TP SCH ×2 (00:34→12:28)
[2016-05-08] MEDS: SUCRALFATE 1 G/10 ML UDC GT SCH ×5 (00:34→23:20)
[2016-05-08 04:00] VITALS: BP 130/70
[2016-05-08 06:34] LABS: BASOPHILS % (AUTO) 0.4 % (0.0-2.0); EOSINOPHILS # (AUTO) 0.3 /CMM (0.0-0.7); EOSINOPHILS % (AUTO) 4.1 % (0.0-6.0); HEMATOCRIT 36 % (39-51); HEMOGLOBIN 11.6 g/dL (13.5-17.5); LYMPHOCYTES # (AUTO) 2.3 /CMM (0.8-4.8); LYMPHOCYTES % (AUTO) 28.1 % (20.0-44.0); MEAN CORPUSCULAR HEMOGLOBIN 27 PG (26.0-33.0); MEAN CORPUSCULAR HGB CONC 32 g/dl (31.0-36.0); MEAN CORPUSCULAR VOLUME 86 fL (80-96); MONOCYTES # (AUTO) 0.6 /CMM (0.1-1.30); MONOCYTES % (AUTO) 7.6 % (2.0-12.0); NEUTROPHILS # (AUTO) 4.9 /CMM (1.8-8.9); NEUTROPHILS % (AUTO) 59.8 % (43.0-81.0); PLATELET COUNT (AUTO) 273 /CMM (150-450); RDW COEFFICIENT OF VARIATION 18.9 (11.5-15.0); RED BLOOD CELL COUNT(AUTO) 4.23 MIL/uL (4.5-6.0); WHITE BLOOD COUNT (AUTO) 8.3 K/uL (4.3-11.0)
[2016-05-08] MEDS: BLOOD SUGAR DIAGNOSTIC 1 EACH STRIP VI SCH ×4 (06:40→21:49)
[2016-05-08] MEDS: LEVOTHYROXINE SODIUM 100 MCG TABLET PO SCH (06:40)
[2016-05-08 06:44] LABS: ALBUMIN 2.7 g/dL (3.4-5.0); BILIRUBIN,TOTAL 0.6 mg/dL (0.2-1.0); CALCIUM, SERUM 7.7 mg/dL (8.5-10.1); CREATININE 1.1 mg/dL (0.6-1.3); MAGNESIUM 1.9 mg/dL (1.8-2.4); PHOSPHORUS 2.7 mg/dL (2.5-4.9); POTASSIUM 3.5 mmol/L (3.5-5.1); TOTAL PROTEIN, SERUM 7.1 g/dL (6.4-8.2)
--- NOTE | 2016-05-08 07:15 | NUR ---
DISPENSING OPTICIAN APPRENTICE INITIAL NOTES RECEIVED REPORT AND PT FROM PM NURSE, A&O X4, ON RA SAT ABOVE 97%, ON TELE MON SR 67, ROTH CATH DRAINING URINE VIA GRAVITY, RT HAND 18 G INTACT AND PATENT, NO S.S OF INFILTRATION NOTED, ALL NEEDS MET,ALL SAFETY MEASURES INITIATED, SIDE RAILS X2, BED LOW AND LOCKED, CALL LIGHT WITHIN REACH, WILL CONTINUE TO MONITOR.
--- NOTE | 2016-05-08 07:33 | NUR ---
RN CLOSING NOTE PT REMAINS IN NO ACUTE DISTRESS IN BED. PT DID NOT HAVE ANY SIGNIFICANT CHANGE IN CONDITION DURING SHIFT. WILL ENDORSE REPORT TO AM RN FOR CONTINUITY OF CARE. ALL NEEDS MET ALL ORDERS CARRIED OUT.
[2016-05-08 08:00] VITALS: BP 121/68
[2016-05-08] MEDS: CLOPIDOGREL BISULFATE 75 MG TABLET PO SCH (09:04)
[2016-05-08] MEDS: FUROSEMIDE 40 MG TABLET PO SCH (09:04)
[2016-05-08] MEDS: PANTOPRAZOLE 40 MG VIAL IV SCH ×2 (09:04→21:43)
[2016-05-08] MEDS: ASPIRIN 81 MG TAB.CHEW PO SCH (09:04)
[2016-05-08] MEDS: DAKINS QUARTER STRENGTH (0.125%) 480 ML BOTTLE TOP SCH (09:05)
[2016-05-08] MEDS: INSULIN DETEMIR 100 UNIT/ML CARTRIDGE SQ SCH (09:11)
[2016-05-08 12:00] VITALS: BP 107/60
[2016-05-08] MEDS: INSULIN REGULAR, HUMAN 100 UNIT/ML 3 ML VIAL SQ PRN (12:27)
--- NOTE | 2016-05-08 12:56 | NUR ---
RESEARCH AND EVALUATION MANAGER NOTES PT REMOVED RT HAND 18 G IV AND REFUSES ANOTHER IV, VERY ANGRY AND COMBATIVE STATES HE WANTS TO GO HOME RIGHT NOW, WILL TRY TO INSERT IV LATER.
[2016-05-08] MEDS ORDERED: PANT40TA2 PO (15:00)
[2016-05-08] MEDS ORDERED: SUCR1ORA6 GT (15:00)
[2016-05-08 16:00] VITALS: BP 122/75
--- NOTE | 2016-05-08 17:36 | NUR ---
BINDER ROLLER NOTES PT REMOVED IV, VERY COMBATIVE AND AGITATED, REFUSES NEW IV TO BE INSERTED, WILL TRY AGAIN LATER.
--- NOTE | 2016-05-08 18:35 | NUR ---
MANAGER OF MARKETING ENDING NOTES PT STABLE WITH NO ACUTE CHANGES, PT IS STILL COMBATIVE AND AGITATED, REFUSES TO HAVE IV INSERTED, HITS AND BECOMES COMBATIVE, WILL HAVE 1/1 SITTER, ALL DUE MEDS GIVEN, ALL NEEDS MET, WILL ENDORSE TO PM NURSE.
[2016-05-08 20:00] VITALS: BP 118/71
--- NOTE | 2016-05-08 20:00 | NUR ---
DENTAL CERAMIST HELPER NOTE PT IN BED AWAKE. A/O X 3, NO SOB, NO DISTRESS OR DISCOMFORT NOTED. DENIES PAIN. PT PULLED OUT IV LINE PER DAY SHIFT NURSE. TRIED 2X TO INSERT IV LINE WITH NO SUCCESS. ON TELE SR HR 72 WITH PAC'S . KEPT RT HEEL ELEVATED ON PILLOW. DRESSING I/C/D. F/C INTACT AND PATENT DRAINING YELLOWISH COLOR URINE. SIDE RAILS UP X 2 AND CALL LIGHT WITHIN REACH. VSS. SITTER AT BED SIDE. CONTINUE TO MONITOR HIM.
--- NOTE | 2016-05-08 20:30 | NUR ---
DIESEL ENGINE ENGINEER NOTE SB ICU NURSE INSERT NEW IV LINE #20G IN RT HAND WITH GOOD BACK FLOW OF BLOOD.
[2016-05-08] MEDS: VANCOMYCIN 1.25 GM in IV D5W 500 ML IV SCH (21:42)
[2016-05-08] MEDS: *INSULIN REGULAR(HUMULIN R)HUM 100 UNIT/ML VIAL SQ PRN (21:51)
--- NOTE | 2016-05-08 22:25 | NUR ---
SOFTWARE DESIGN ANALYST NOTE PT ENDORSED TO NURSE RICHARDS FOR CONTINUE TO CARE.
[2016-05-09] VITALS: BP 119/66
--- NOTE | 2016-05-09 00:14 | NUR ---
pt is resting in the bed, v/s stable, no pain, RA sat well, pt turned and repositioned q2hrs, sitter at the bedside.
[2016-05-09] MEDS: MUPIROCIN OINT 2% 22 GM TUBE TP SCH ×2 (00:37→13:00)
[2016-05-09 04:00] VITALS: BP 98/40
--- NOTE | 2016-05-09 04:09 | NUR ---
pt is resting in the bed, v/s stable, no pain, pt cleaned, changed and repositioned q2hrs.
[2016-05-09] MEDS: SUCRALFATE 1 G/10 ML UDC GT SCH ×4 (05:18→23:57)
--- NOTE | 2016-05-09 06:47 | NUR ---
RN NOTE PT AGITATED, COMBATIVE, PULLING ROTH CATHETER, CONFUSED AND CONTINUES TO GET OUT OF BED. JUAQUIN MCCLAIN NP CALLED ORDERED SOFT WRIST RESTRAINTS AND DC OF ROTH CATHETER. ORDER ENTERED. Addendum: 05/09/16 at 2015 by THAIS TINSLEY RN ERROR CALL AND ORDER TAKEN AND ENTERED AT 1847.
[2016-05-09 07:03] LABS: CALCIUM, SERUM 7.9 mg/dL (8.5-10.1); CREATININE 1.1 mg/dL (0.6-1.3); POTASSIUM 3.4 mmol/L (3.5-5.1)
[2016-05-09] MEDS: LEVOTHYROXINE SODIUM 100 MCG TABLET PO SCH (07:30)
--- NOTE | 2016-05-09 07:35 | NUR ---
RN INTIAL NOTE RECEIVED PT FROM PM SHIFT A/O X3 WITH SLIGHT CONFUSION. RESTING COMFORTABLY. PT ON RA PT NOT IN ACUTE SOB. IV R HAND 20G NS@100 ML/HR FLUSHED AND PATENT. PT TURNED AND REPOSITIONED FOR SAFETY. PT KEPT WARM AND DRY. WILL CONTINUE TO MONITOR CLOSELY.
[2016-05-09 08:00] VITALS: BP 97/73
[2016-05-09 08:23] LABS: *SPE A/G RATIO 0.7 (0.7-1.7); *SPE ALBUMIN 2.5 g/dL (2.9-4.4); *SPE ALPHA-1-GLOBULIN 0.3 g/dL (0.0-0.4); *SPE ALPHA-2-GLOBULIN 0.8 g/dL (0.4-1.0); *SPE BETA GLOBULIN 0.9 g/dL (0.7-1.3); *SPE GLOBULIN, TOTAL 3.4 g/dL (2.2-3.9); *SPE M-SPIKE Not Observed g/dL (Not Observed); *SPE PROTEIN TOTAL 5.9 g/dL (6.0-8.5); *SPEGAMMA GLOBULIN 1.4 g/dL (0.4-1.8)
[2016-05-09] MEDS: PANTOPRAZOLE 40 MG VIAL IV SCH ×2 (08:39→20:37)
[2016-05-09] MEDS: INSULIN DETEMIR 100 UNIT/ML CARTRIDGE SQ SCH (08:48)
[2016-05-09] MEDS: INSULIN REGULAR, HUMAN 100 UNIT/ML 3 ML VIAL SQ PRN ×2 (08:49→12:41)
[2016-05-09] MEDS: BLOOD SUGAR DIAGNOSTIC 1 EACH STRIP VI SCH ×4 (08:53→21:37)
[2016-05-09] MEDS: DAKINS QUARTER STRENGTH (0.125%) 480 ML BOTTLE TOP SCH (09:45)
[2016-05-09] MEDS: FUROSEMIDE 40 MG TABLET PO SCH (09:45)
[2016-05-09] MEDS: CLOPIDOGREL BISULFATE 75 MG TABLET PO SCH (09:45)
[2016-05-09] MEDS: ASPIRIN 81 MG TAB.CHEW PO SCH (09:45)
[2016-05-09] MEDS ORDERED: POTASSIUM CHLORIDE 20 MEQ TAB.PRT.SR PO ONE (10:15)
[2016-05-09 12:00] VITALS: BP 93/67
[2016-05-09] MEDS: QUETIAPINE FUMARATE 25 MG TABLET PO SCH ×2 (12:36→17:02)
[2016-05-09 16:00] VITALS: BP 123/76
[2016-05-09] MEDS ORDERED: SECONDARY IV SET 1 EA INFUS.SET MC ONE (16:29)
--- NOTE | 2016-05-09 17:00 | NUR ---
RN NOTE CODE SAMANTHA CALLED ON PT. PT AGITATED GETTING OUT OF BED, CONFUSED COMBATIVE AND TRIED HITTING STAFF. WANTED TO GO OUTSIDE TO SMOKE. PT REDIRECTED AND SAT DOWN IN CHAIR. AFTER SPEAKING TO PT AND EXPLAINING FOR SAFETY PURPOSES PT NEEDED TO BE PUT IN BED PT AGREED.
--- NOTE | 2016-05-09 19:15 | NUR ---
RN NOTE CALLED DR. SANDRA ORDER ENTERED FOR HALDOL 0.5 MG IM, ATIVAN 1MG IM AND BENADRYL 25MG IM Q4HR PRN FOR AGITATION.
--- NOTE | 2016-05-09 19:22 | NUR ---
GO/RAW CHEESE WORKER PT IS SEEN WITH LOERA IN HANDS, ABOUT 15 DOLLARS. PT SAID HE WANTS TO GO GET CIGARETTE TO SMOKE. NOT SURE WHERE PT GOT THIS FROM, HOWEVER REFUSED TO PUT AWAY.
[2016-05-09] MEDS ORDERED: diphenhydrAMINE HCL 50 MG/ML VIAL IM PRN (19:30)
[2016-05-09] MEDS ORDERED: HALOPERIDOL LACTATE INJ 5 MG/ML VIAL IM PRN (19:30)
[2016-05-09 20:00] VITALS: BP_SYST 129; BP_DIAS 44; BP_DIAS 64
--- NOTE | 2016-05-09 20:22 | NUR ---
RN CLOSING NOTE PT NOW CALMED DOWN LAYING IN BED. NO ACUTE C/O. IV NS @ TKO FLUSH PATENT. DC ROTH CATHETER. PT TOOK ALL MEDICATIONS. ALL ORDERS IN PLACE. ALL SAFETY MEASURES IN PLACE. PT KEEP WARM AND DRY. ENDORSED TO PM SHIFT FOR CRYSTAL.
[2016-05-09] MEDS: LORAZEPAM INJ 2 MG/ML VIAL IM/IV PRN (20:35)
--- NOTE | 2016-05-09 20:52 | NUR ---
GO/RECONCILIATION SPECIALIST PT APPEARED TO BE GETTING EXTREMELY AGITATED AND COMBATIVE POST PHONE CALL FROM . SPENT ABOUT 20-30 MINUTES REASONING WITH PT, HOWEVER PT STATED HE WILL BE LEAVING TO BOAT DOCK OPERATOR . CHARGE WAS NOTIFIED ABOUT THIS, ASSESSED THE SITUATION DECISION WAS MADE TO GIVE ATIVAN 1MG IV. PT CONTINUES TO BE 1 TO 1, DUE TO COMBATIVE STATE OF MIND.
--- NOTE | 2016-05-09 21:33 | NUR ---
GO/GROUT MACHINE OPERATOR PT'S VANCO LEVEL IS 12, NOTIFIED CHARGE NURSE TIARRA ABOUT LEVEL. PT WAS THEN GIVEN 2200 DOSE OF VANCO. WILL CONTINUE TO MONITOR THIS PT.
[2016-05-09] MEDS: VANCOMYCIN 1.25 GM in IV D5W 500 ML IV SCH (21:34)
[2016-05-09] MEDS: *INSULIN REGULAR(HUMULIN R)HUM 100 UNIT/ML VIAL SQ PRN (21:38)
--- NOTE | 2016-05-09 21:50 | NUR ---
GO/HUNTER GUIDE PT'S BLOOD SUGAR WAS 138, THERE IS 2 UNITS REGULAR INSULIN FOR THIS. WILL CONTINUE TO MONITOR PT'S SUGAR ORDERED BY .
--- NOTE | 2016-05-09 23:20 | NUR ---
GO/LOAN DOCUMENTATION SPECIALIST PT STILL CONTINUES TO HAVE PERIODS OF AGITATION AND COMBATIVE BEHAVIOR WHEN AWAKE. ATIVAN HAS BEEN EFFECTIVE IN HELPING REMAIN CALM, BUT THEN PT WILL WAKE UP BECOME COMBATIVE TOWARDS STAFF, SAYS HE HAS TO GO INVESTMENT BANKING ANALYST FAMILY MEMBER. PT HAS PHONE AT [facility]ESIDE, TIES TO CALL THEM ON THE PHONE. PT CONTINUES TO BE 1 TO 1 OR WITH SITTER.
[2016-05-09] MEDS ORDERED: IV NS 0.9% 250 ML IV ONE (23:54)
[2016-05-10] MEDS ORDERED: IV NS 0.9% 250 ML IV PRN
[2016-05-10] MEDS: MUPIROCIN OINT 2% 22 GM TUBE TP SCH ×2 (00:41→12:25)
--- NOTE | 2016-05-10 02:35 | NUR ---
GO/LOOM OVERHAULER PT HAS BEEN ASLEEP, PERIODS WHERE HE AWAKES UP MUMBLES, THEN FALLS BACK ASLEEP. NO ACUTE RESPIRATORY DISTRESS SEEN, PT APPEARS TO BE COMFORTABLE ASLEEP.
[2016-05-10 04:00] VITALS: BP 131/68
--- NOTE | 2016-05-10 04:10 | NUR ---
GO/BULK STATION OPERATOR PT'S VITAL SIGNS TAKEN, PT APPEARS TO BE MORE COOPERATIVE, HOWEVER STILL SAYS HE IS LEAVING. HAD TO REORT TO TIME AND PLACE. REINFORCEMENT IS STILL NEEDED. PT CONTINUES TO NEED SITTER OR 1 TO 1.
[2016-05-10] MEDS: SUCRALFATE 1 G/10 ML UDC GT SCH ×2 (05:45→12:20)
[2016-05-10] MEDS: LEVOTHYROXINE SODIUM 100 MCG TABLET PO SCH ×2 (05:45→08:55)
[2016-05-10] MEDS: LORAZEPAM INJ 2 MG/ML VIAL IM/IV PRN ×2 (05:47→05:49)
--- NOTE | 2016-05-10 05:59 | NUR ---
GO/DIE TURNER PT SAID HE IS LEAVING, STARTED PUTTING LEGS OVER BED RAILS, PLACED BACK INTO BED. RE-ORT AGAIN, HOWEVER PT ALSO WANTS CLOTHES PLACED ON HIM. PT SAID HE IS GOING TO THE WOUND. CHARGE NURSE NOTIFIED ABOUT THIS, ATIVAN 1MG GIVEN IVP FOR THE COMBATIVE BEHAVIOR. PT CONTINUES TO BE MONITORED 1 TO 1 OR WITH SITTER.
--- NOTE | 2016-05-10 07:15 | NUR ---
RN MS INITIAL NOTES PT RESTING IN BED CALM, ASLEEP AT THIS TIME, NO ACUTE DISTRESS OR SOB, A&O X2-3, ON RA SAT ABOVE 97%, RT HAND 22G IV INTACT AND NO S/S OF INFILTRATION, 02/19 SITTER AT BEDSIDE,ALL NEEDS MET, ALL SAFETY MEASURES INITIATED, SIDE RAILS X2, BED LOW AND LOCKED, CALL LIGHT WITHIN REACH, WILL CONTINUE TO MONITOR.
[2016-05-10 07:35] LABS: POTASSIUM 3.5 mmol/L (3.5-5.1)
[2016-05-10 08:00] VITALS: BP_SYST 131; BP_SYST 135; BP_DIAS 68; BP_DIAS 74
[2016-05-10] MEDS: BLOOD SUGAR DIAGNOSTIC 1 EACH STRIP VI SCH ×2 (08:54→12:20)
[2016-05-10] MEDS: QUETIAPINE FUMARATE 25 MG TABLET PO SCH (08:55)
[2016-05-10] MEDS: ASPIRIN 81 MG TAB.CHEW PO SCH (08:55)
[2016-05-10] MEDS: PANTOPRAZOLE 40 MG VIAL IV SCH (08:55)
[2016-05-10] MEDS: FUROSEMIDE 40 MG TABLET PO SCH (08:55)
[2016-05-10] MEDS: DAKINS QUARTER STRENGTH (0.125%) 480 ML BOTTLE TOP SCH (08:55)
[2016-05-10] MEDS: CLOPIDOGREL BISULFATE 75 MG TABLET PO SCH (08:55)
[2016-05-10] MEDS: INSULIN REGULAR, HUMAN 100 UNIT/ML 3 ML VIAL SQ PRN ×2 (09:04→12:23)
[2016-05-10] MEDS: INSULIN DETEMIR 100 UNIT/ML CARTRIDGE SQ SCH (09:04)
[2016-05-10] MEDS ORDERED: HALO5VIA9 IM (13:50)
[2016-05-10] MEDS ORDERED: QUET25TA PO (13:50)
--- NOTE | 2016-05-10 16:00 | NUR ---
RN MS ENDING NOTES PT LEFT VIA AMBULANCE, IV SITE REMOVED NO S.S OF INFILTRATION, DC PAPERWORK COMPLETED, EXIT CARE PROVIDED, GAVE REPORT TO RN AT [facility], NO ACUTE CHANGES NOTED, PT COMBATIVE AND ANGRY AT CERTAIN PERIODS, REFUSED WOUND CHECK AND PICTURES TO BE TAKEN BEFORE DISCHARGE, MED PRESCRIPTION PROVIDED, AWARE DC. WILL CONTINUE CARE AT FACILITY.
== END 2016-05-10 16:15 | DRG 987 ==
LOC: ER 19:55 → ICU 21:56 → TELE1 05-07 17:47 → MEDSG1 05-09 13:14
PROVIDERS: ADMIT Family Medicine; ATTEND Family Medicine
PROC: 5A1945Z Respiratory Ventilation, 24-96 Consecutive Hours (ICD-10-PCS; principal; 2016-05-03)
PROC: 0DJ08ZZ Inspection of Upper Intestinal Tract, Via Natural or Artificial Opening Endoscopic (ICD-10-PCS; 2016-05-04)
PROC: 30233N1 Transfusion of Nonautologous Red Blood Cells into Peripheral Vein, Percutaneous Approach (ICD-10-PCS; 2016-05-04)
PROC: 0QBN0ZZ Excision of Right Metatarsal, Open Approach (ICD-10-PCS; 2016-05-09)
DX: J15.9 Unspecified bacterial pneumonia (principal); J96.00 Acute respiratory failure, unspecified whether with hypoxia or hypercapnia; I21.4 Non-ST elevation (NSTEMI) myocardial infarction; N17.0 Acute kidney failure with tubular necrosis; G93.40 Encephalopathy, unspecified; I50.33 Acute on chronic diastolic (congestive) heart failure; J96.02 Acute respiratory failure with hypercapnia; J96.01 Acute respiratory failure with hypoxia; E87.2 Acidosis; K92.2 Gastrointestinal hemorrhage, unspecified; I13.0 Hypertensive heart and chronic kidney disease with heart failure and stage 1 through stage 4 chronic kidney disease, or unspecified chronic kidney disease; D64.9 Anemia, unspecified; E03.9 Hypothyroidism, unspecified; E11.22 Type 2 diabetes mellitus with diabetic chronic kidney disease; E66.01 Morbid (severe) obesity due to excess calories; G47.33 Obstructive sleep apnea (adult) (pediatric); F17.210 Nicotine dependence, cigarettes, uncomplicated; I25.10 Atherosclerotic heart disease of native coronary artery without angina pectoris; N18.3 Chronic kidney disease, stage 3 (moderate); Z86.73 Personal history of transient ischemic attack (TIA), and cerebral infarction without residual deficits; Z89.612 Acquired absence of left leg above knee; Z95.5 Presence of coronary angioplasty implant and graft; E78.5 Hyperlipidemia, unspecified; E66.9 Obesity, unspecified; Z79.4 Long term (current) use of insulin; E11.51 Type 2 diabetes mellitus with diabetic peripheral angiopathy without gangrene; I50.9 Heart failure, unspecified; Z86.74 Personal history of sudden cardiac arrest; E87.6 Hypokalemia; E11.40 Type 2 diabetes mellitus with diabetic neuropathy, unspecified; E11.621 Type 2 diabetes mellitus with foot ulcer; F03.90 Unspecified dementia, unspecified severity, without behavioral disturbance, psychotic disturbance, mood disturbance, and anxiety; F29 Unspecified psychosis not due to a substance or known physiological condition; I25.2 Old myocardial infarction; L97.519 Non-pressure chronic ulcer of other part of right foot with unspecified severity; Z86.14 Personal history of Methicillin resistant Staphylococcus aureus infection
CPT/HCPCS: 31720; 36415; 36600; 71010-TC; 80048-TC; 80053-TC; 80061-TC; 80076-TC; 80202-TC; 81000-TC; 82570-TC; 82803-TC; 82962-TC; 83605-TC; 83735-TC; 83880; 84100-TC; 84132-TC; 84155; 84165; 84300-TC; 84484-TC; 85025-TC; 85027-TC; 85730-TC; 86850-TC; 86921-TC; 87040-TC; 87081-TC; 87086-TC; 92611-TC; 93307-TC; 94002-TC; 94003-TC; 94799-TC; 99082-TC; A4216; A4217; A4606; A6253; A6402; A6403; C9113; J1815; J1940; J1956; J2060; J2185; J2250; J2543; J2704; J3370; J3480; J3490; J7030; J7040; J7050; J7060; P9016-BL; Z7610

== ENCOUNTER 2016-05-24 08:50 | Outpatient (CLI) | payer MEDICARE, BC ==
[~2016-05-24 08:50] MED LIST changes: +HALO5VIA9 IM; -MIDAZOLAM HCL 2 MG/2ML VIAL ONE; +PANT40TA2 PO; +QUET25TA PO; +SUCR1ORA6 GT
== END 2016-05-24 23:59 | disposition other institution (70) ==
LOC: WOU 08:50
PROVIDERS: ATTEND Podiatrist Foot & Ankle Surgery
DX: L03.115 Cellulitis of right lower limb (principal); E11.621 Type 2 diabetes mellitus with foot ulcer; L97.514 Non-pressure chronic ulcer of other part of right foot with necrosis of bone; E11.622 Type 2 diabetes mellitus with other skin ulcer; L97.811 Non-pressure chronic ulcer of other part of right lower leg limited to breakdown of skin; E11.69 Type 2 diabetes mellitus with other specified complication; M86.671 Other chronic osteomyelitis, right ankle and foot; R60.0 Localized edema; Z89.421 Acquired absence of other right toe(s); I25.10 Atherosclerotic heart disease of native coronary artery without angina pectoris; E05.00 Thyrotoxicosis with diffuse goiter without thyrotoxic crisis or storm; Z79.4 Long term (current) use of insulin; Z79.899 Other long term (current) drug therapy
CPT/HCPCS: A6253; A6402; G0463

== ENCOUNTER 2016-05-24 11:10 | Inpatient (IN) | payer MEDICARE, BC ==
[~2016-05-24] VITALS: Ht 177.8 cm; Wt 137.4 kg
[2016-05-24 12:00] VITALS: BP 105/60
[2016-05-24] MEDS ORDERED: BLOOD SUGAR DIAGNOSTIC 1 EACH STRIP IN SCH (12:00)
[2016-05-24] MEDS ORDERED: INSULIN REGULAR, HUMAN 100 UNIT/ML 3 ML VIAL SQ PRN (12:00)
[2016-05-24] MEDS ORDERED: DEXTROSE 50%-WATER 50 ML DISP.SYRIN IV PRN ×2 (12:00→12:30)
--- NOTE | 2016-05-24 12:00 | NUR ---
ADMITTED PT [facility].PT IS ALERT AND ORIENTED X4.VERBALLY RESPONSIVE.WITH RT FOOT WOUND WITH DRESSING IN PLACE-CLEAN AND DRY.WITH LT AKA.DENIES PAIN OR DISTRESS.NOTIFIED DR IBRAHIM FOR ADMITTING ORDERS AND MED RECONCILIATION.PT WANTS REGULAR DIET.PT TEACHING DONE REGARDING THE IMPORTANCE OF STICKING TO HIS DIABETIC DIET EXPLAINING THE RISKS AND BENEFITS OF IT.PT VERBALIZED UNDERSTANDING OF INSTRUCTIONS GIVEN.CALL LIGHT PLACED WITHIN REACH.
[2016-05-24] MEDS ORDERED: ACETAMINOPHEN 325 MG TABLET PO PRN (12:30)
[2016-05-24] MEDS ORDERED: ONDANSETRON HCL/PF 4 MG/2 ML VIAL IVP PRN (12:30)
[2016-05-24] MEDS ORDERED: Z GUARD REMEDY 2 OZ OINT TP PRN (12:30)
[2016-05-24] MEDS ORDERED: MAGNESIUM HYDROXIDE 30 ML UDC PO PRN (12:30)
[2016-05-24] MEDS ORDERED: HALOPERIDOL LACTATE INJ 5 MG/ML VIAL IM PRN (12:30)
[2016-05-24] MEDS ORDERED: HYDROCODONE/APAP 5/325MG 1 EACH TABLET PO PRN (12:30)
[2016-05-24] MEDS ORDERED: SENNOSIDES 8.6 MG TABLET PO PRN (12:30)
[2016-05-24] MEDS ORDERED: ZOLPIDEM TARTRATE 5 MG TABLET PO PRN (12:30)
[2016-05-24] MEDS ORDERED: MAG HYDROX/AL HYDROX/SIMETH 30 ML UDC PO PRN (12:30)
[2016-05-24] MEDS: LISINOPRIL (5MG) 5 MG TABLET PO SCH (12:40)
[2016-05-24 12:52] LABS: BASOPHILS % (AUTO) 0.4 % (0.0-2.0); EOSINOPHILS # (AUTO) 0.2 /CMM (0.0-0.7); EOSINOPHILS % (AUTO) 3.5 % (0.0-6.0); HEMATOCRIT 29 % (39-51); HEMOGLOBIN 9.5 g/dL (13.5-17.5); LYMPHOCYTES # (AUTO) 1.5 /CMM (0.8-4.8); LYMPHOCYTES % (AUTO) 22.8 % (20.0-44.0); MEAN CORPUSCULAR HEMOGLOBIN 28 PG (26.0-33.0); MEAN CORPUSCULAR HGB CONC 33 g/dl (31.0-36.0); MEAN CORPUSCULAR VOLUME 84 fL (80-96); MONOCYTES # (AUTO) 0.4 /CMM (0.1-1.30); MONOCYTES % (AUTO) 6.6 % (2.0-12.0); NEUTROPHILS # (AUTO) 4.5 /CMM (1.8-8.9); NEUTROPHILS % (AUTO) 66.7 % (43.0-81.0); PLATELET COUNT (AUTO) 300 /CMM (150-450); RED BLOOD CELL COUNT(AUTO) 3.39 MIL/uL (4.5-6.0); WHITE BLOOD COUNT (AUTO) 6.7 K/uL (4.3-11.0)
[2016-05-24 13:09] LABS: CALCIUM, SERUM 8.2 mg/dL (8.5-10.1); CREATININE 1.4 mg/dL (0.6-1.3); POTASSIUM 4.3 mmol/L (3.5-5.1)
[2016-05-24 13:24] LABS: INR 0.99 (0.87-1.13); PROTHROMBIN TIME 10.6 SECS (9.5-12.7)
[2016-05-24] MEDS ORDERED: LIDOCAINE 1% INJ 50 ML MDV IJ ONE (15:00)
--- NOTE | 2016-05-24 15:14 | NUR ---
PT WAS SEEN BY DR BECKER AND DID DEBRIDEMENT OF RT FOOT ULCER.RT FOOT WOUND C/S G/S SPECIMEN SENT TO LAB.
--- NOTE | 2016-05-24 16:35 | NUR ---
PT TRIED TO GO TO THE TOILET ON HIS OWN BEARING WT ON HIS RT FOOT WOUND WHICH CAUSED MODERATE BLEEDING.INSTRUCTED PT NOT TO BEAR WEIGHT ON HIS RT FOOT.PROVIDED PT BEDSIDE COMMODE AND URINAL AND INSTRUCTED TO CALL FOR ASSISTANCE WHEN NEEDED AND NOT TO BEAR WEIGHT ON HIS RT FOOT.CHANGED BLOODY DRESSING TO RT FOOT NEEDED.WILL MONITOR.PT HAS HX OF NON COMPLIANCE IN THE PAST INSPITE OF INSTRUCTING HIM NOT TO BEAR WT ON HIS RT FOOT,PT STILL CONTINUES TO DO SO INSPITE OF EXPLAINING ITS RISKS AND BENEFITS.
[2016-05-24] MEDS: INSULIN REGULAR, HUMAN 100 UNIT/ML 3 ML VIAL SQ PRN (16:59)
[2016-05-24] MEDS: BLOOD SUGAR DIAGNOSTIC 1 EACH STRIP VI SCH ×2 (16:59→22:31)
[2016-05-24] MEDS: SUCRALFATE 1 G/10 ML UDC GT SCH (17:00)
[2016-05-24] MEDS ORDERED: FUROSEMIDE 40 MG TABLET PO SCH (17:00)
[2016-05-24] MEDS: QUETIAPINE FUMARATE 25 MG TABLET PO SCH (17:00)
[2016-05-24] MEDS: HYDROCODONE/APAP 10/325MG 1 EA TABLET PO PRN (17:02)
[2016-05-24 17:03] VITALS: BP 111/68
--- NOTE | 2016-05-24 18:00 | NUR ---
PT ATE DINNER AND REINFORCED INSTRUCTIONS NOT TO BEAR WEIGHT ON HIS RT FOOT.SEEN BY REJI MORALES ID WITH ORDERS FOR ATB.
[2016-05-24] MEDS ORDERED: FEE PK DOSING 1 MIN EA MC ONE (18:58)
--- NOTE | 2016-05-24 19:20 | NUR ---
MS RN NOTES RECEIVED PT SITTING UP IN BED, AWAKE, ALERT X4 AND VERBALLY RESPONSIVE. ABLE TO VERBALIZE NEEDS. NO DISTRESS, NO SOB NOTED. ABDOMEN IS SOFT AND NON DISTENDED. IV SITE ON LEFTY WRIST INTACT AND PATENT. RIGHT FOOT COVERED WITH INTACT DRESSING. ALL NEEDS ATTENDED AND MET. NO C/O PAIN OR DISCOMFORT AT THIS TIME. KEPT COMFORTABLE. SAFETY PRECAUTIONS OBSERVED. WILL CONTINUE TO MONITOR. CALL LIGHT WITHIN REACH.
[2016-05-24 20:00] VITALS: BP 116/63
[2016-05-24] MEDS: VANCOMYCIN 1.5 GM in IV D5W 500 ML IV SCH (20:30)
[2016-05-24] MEDS ORDERED: IV SET PRIMARY PUMP SET 1 EA INFUS.SET MC ONE (20:31)
[2016-05-24] MEDS ORDERED: SECONDARY IV SET 1 EA INFUS.SET MC ONE (20:33)
[2016-05-24] MEDS: Z GUARD REMEDY 2 OZ OINT TP SCH (20:52)
[2016-05-24 22:00] VITALS: BP 96/69
[2016-05-24] MEDS: *INSULIN REGULAR(HUMULIN R)HUM 100 UNIT/ML VIAL SQ PRN (22:37)
--- NOTE | 2016-05-24 22:40 | NUR ---
IV HL ON LEFT WRIST ACCIDENTALLY PULLED OUT BY THE PT, APPLIED PRESSURE, NO BLEEDING NOTED. INSERTED IV ON LFA 22G X 1 ATTEMPT, SUCCESSFUL WITH GOOD VENOUS RETURN. PT KOREY WELL.
[2016-05-25] MEDS: SUCRALFATE 1 G/10 ML UDC GT SCH ×4 (00:48→17:20)
--- NOTE | 2016-05-25 02:00 | NUR ---
MS RN NOTES PT ASLEEP AT THIS TIME. NO DISTRESS , NO SOB NOTED. WILL CONT TO MONITOR. CALL LIGHT WITHIN REACH
[2016-05-25 06:14] LABS: BASOPHILS % (AUTO) 0.4 % (0.0-2.0); EOSINOPHILS # (AUTO) 0.2 /CMM (0.0-0.7); EOSINOPHILS % (AUTO) 3.8 % (0.0-6.0); HEMATOCRIT 27 % (39-51); HEMOGLOBIN 8.9 g/dL (13.5-17.5); LYMPHOCYTES # (AUTO) 1.5 /CMM (0.8-4.8); LYMPHOCYTES % (AUTO) 24.6 % (20.0-44.0); MEAN CORPUSCULAR HEMOGLOBIN 28 PG (26.0-33.0); MEAN CORPUSCULAR HGB CONC 33 g/dl (31.0-36.0); MEAN CORPUSCULAR VOLUME 85 fL (80-96); MONOCYTES # (AUTO) 0.5 /CMM (0.1-1.30); MONOCYTES % (AUTO) 7.5 % (2.0-12.0); NEUTROPHILS % (AUTO) 63.7 % (43.0-81.0); PLATELET COUNT (AUTO) 286 /CMM (150-450); RDW COEFFICIENT OF VARIATION 16.4 (11.5-15.0); RED BLOOD CELL COUNT(AUTO) 3.18 MIL/uL (4.5-6.0); WHITE BLOOD COUNT (AUTO) 6.2 K/uL (4.3-11.0)
[2016-05-25] MEDS: BLOOD SUGAR DIAGNOSTIC 1 EACH STRIP VI SCH ×4 (06:15→22:29)
[2016-05-25] MEDS: INSULIN REGULAR, HUMAN 100 UNIT/ML 3 ML VIAL SQ PRN ×3 (06:23→17:24)
--- NOTE | 2016-05-25 06:32 | NUR ---
MS RN NOTES PT UP IN WC, AWAKE, ALERT X4 AND VERBALLY RESPONSIVE. ABLE TO VERBALIZE NEEDS. NO DISTRESS, NO SOB NOTED. ABDOMEN IS SOFT AND NON DISTENDED. IV SITE ON LFA INTACT AND PATENT. RIGHT FOOT COVERED WITH INTACT DRESSING.NO S/S OF HYPO/ HYPERGLYCEMIA NOTED. ALL NEEDS ATTENDED AND MET. NO C/O PAIN OR DISCOMFORT AT THIS TIME. KEPT COMFORTABLE. SAFETY PRECAUTIONS OBSERVED. CALL LIGHT WITHIN REACH. WILL ENDORSE TO NEXT SHIFT FOR CRYSTAL.
[2016-05-25 07:06] LABS: CREATININE 1.3 mg/dL (0.6-1.3); MAGNESIUM 1.9 mg/dL (1.8-2.4); PHOSPHORUS 3.9 mg/dL (2.5-4.9); POTASSIUM 3.9 mmol/L (3.5-5.1)
--- NOTE | 2016-05-25 07:30 | NUR ---
MS/RN Patient received Patient received from janitor caretaker. No needs, call light within reach, will continue to ensure safety.
[2016-05-25] MEDS: FUROSEMIDE 40 MG TABLET PO SCH (07:44)
[2016-05-25] MEDS: ATORVASTATIN 40 MG TABLET PO SCH (07:44)
[2016-05-25] MEDS: LISINOPRIL (5MG) 5 MG TABLET PO SCH (07:45)
[2016-05-25] MEDS: LEVOTHYROXINE SODIUM 100 MCG TABLET PO SCH (07:45)
[2016-05-25] MEDS: PANTOPRAZOLE 40 MG TABLET.DR PO SCH (07:45)
[2016-05-25] MEDS: CARVEDILOL 12.5 MG TABLET PO SCH (07:46)
[2016-05-25] MEDS: QUETIAPINE FUMARATE 25 MG TABLET PO SCH ×2 (07:46→17:21)
[2016-05-25] MEDS: DILTIAZEM HCL CD 240 MG PO SCH (07:46)
[2016-05-25] MEDS: METOPROLOL SUCCINATE 25 MG TAB.SR.24H PO SCH (07:47)
[2016-05-25] MEDS: Z GUARD REMEDY 2 OZ OINT TP SCH ×2 (07:47→17:21)
[2016-05-25] MEDS: HYDROCODONE/APAP 10/325MG 1 EA TABLET PO PRN ×2 (07:55→17:27)
[2016-05-25 08:00] VITALS: BP 133/76
--- NOTE | 2016-05-25 08:21 | NUR ---
MS/RN Medications Morning medications administered as ordered.
--- NOTE | 2016-05-25 08:39 | NUR ---
SECURITY SYSTEMS ADMINISTRATOR SECURITY SYSTEMS ADMINISTRATOR SPOKE TO DR MARTIN AND CLARIFIED RIGHT FOOT ULCER TREATMENT ORDERS. WILL ALSO CANCEL VAC ORDER FOR NOW PATIENT NOT SCHEDULED FOR SURGERY UNTIL 05/30/16. ALL DISCUSSED WITH PRIMARY NURSE FOR TODAY.
[2016-05-25] MEDS ORDERED: SPIRONOLACTONE 25 MG TABLET PO SCH (09:00)
[2016-05-25] MEDS ORDERED: PANTOPRAZOLE 40 MG TABLET.DR PO SCH (09:00)
--- NOTE | 2016-05-25 12:08 | NUR ---
MS/RN Blood sugar Blood sugar at noon 200, per sliding scale three units of insulin given.
--- NOTE | 2016-05-25 14:50 | NUR ---
WOUND CARE CONSULT: PATIENT SEEN AND SKIN ASSESSMENT DONE. PATIENT ALERT, ORIENTED, LEFT AKA, INDEPENDENT WITH BED MOBILITY AND TRANSFERS FROM BED TO WHEELCHAIR, CONTINENT, DELMIS 17. SEE TODAY'S SKIN ASSESSMENT IN [facility] ALONG WITH RECOMMENDATIONS DISCUSSED WITH NURSING STAFF INCLUDING MOISTURE PROTECTION AND OFFLOADING ORDERED. MD IN AGREEMENT WITH PLAN OF CARE. Addendum: 05/25/16 at 1452 by GAIL FERNANDEZ [id number] Amended: Links added.
[2016-05-25 16:00] VITALS: BP 140/98
[2016-05-25] MEDS: NEOMY SULF/BACITRAC ZN/POLY 15 GM TUBE TP SCH (17:21)
[2016-05-25] MEDS: DAKINS QUARTER STRENGTH (0.125%) 480 ML BOTTLE TOP SCH (17:21)
--- NOTE | 2016-05-25 18:33 | NUR ---
MS/RN End note Dressing to right foot noted to have small area of drainage. Patient instructed to stop putting pressure on right leg and remain in the bed. Blood sugars stable, 219 at 5p. 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
--- NOTE | 2016-05-25 19:10 | NUR ---
MS RN NOTES RECEIVED PT UP IN WC, AWAKE, A/O X3. NO ACUTE DISTRESS, NO SOB NOTED. RESPIRATION IS EVEN AND UNLABORED. LFA IV INTACT AND PATENT, NO S/S OF INFILTRATION NOTED. RIGHT FOOT AND RIGHT GUZMAN COVERED WITH INTACT DRESSING , WITH MINIMAL BLEEDING NOTED. REMINDED PT FREQUENTLY NOT TO APPLY PRESSURE ON HIS RIGHT FOOT, PT WITH NO C/O PAIN OR DISCOMFORT AT THIS TIME. NO S/S OF HYPO/ HYPERGLYCEMIA ALL NEEDS ATTENDED AND MET. KEPT COMFORTABLE. AFEBRILE. WILL CONTINUE TO MONITOR. CALL LIGHT WITHIN REACH. SAFETY PRECAUTIONS OBSERVED.
[2016-05-25 20:00] VITALS: BP 119/58
--- NOTE | 2016-05-25 20:58 | NUR ---
REHABILITATION NURSE TAMMY WITH RECOMMENDATION FOR MULTI VITAMINS WITH MINERALS AND VITAMIN C FOR SUPPLEMENT, RELAYED TO DR. HAAS WITH N.O NOTED AND CARRIED OUT.
[2016-05-25] MEDS: VANCOMYCIN 1.5 GM in IV D5W 500 ML IV SCH (21:48)
[2016-05-25 22:00] VITALS: BP 119/58
[2016-05-25] MEDS: *INSULIN REGULAR(HUMULIN R)HUM 100 UNIT/ML VIAL SQ PRN (22:38)
[2016-05-26] MEDS: SUCRALFATE 1 G/10 ML UDC GT SCH ×5 (01:00→23:08)
[2016-05-26] MEDS: HYDROCODONE/APAP 10/325MG 1 EA TABLET PO PRN ×3 (05:34→20:30)
[2016-05-26] MEDS: BLOOD SUGAR DIAGNOSTIC 1 EACH STRIP VI SCH ×4 (06:36→22:56)
[2016-05-26] MEDS: INSULIN REGULAR, HUMAN 100 UNIT/ML 3 ML VIAL SQ PRN ×3 (06:39→23:07)
[2016-05-26 06:47] LABS: CALCIUM, SERUM 8.3 mg/dL (8.5-10.1); CREATININE 1.2 mg/dL (0.6-1.3); POTASSIUM 4.2 mmol/L (3.5-5.1)
--- NOTE | 2016-05-26 07:39 | NUR ---
MS RN NOTES PT IS AWAKE, A/O X3. NO ACUTE DISTRESS, NO SOB NOTED. RESPIRATION IS EVEN AND UNLABORED. LFA IV INTACT AND PATENT, NO S/S OF INFILTRATION NOTED. RIGHT FOOT AND RIGHT GUZMAN COVERED WITH INTACT DRESSING. REMINDED PT FREQUENTLY NOT TO APPLY PRESSURE ON HIS RIGHT FOOT, PT WITH NO C/O PAIN OR DISCOMFORT AT THIS TIME. NO S/S OF HYPO/ HYPERGLYCEMIA ALL NEEDS ATTENDED AND MET. KEPT COMFORTABLE. AFEBRILE. CALL LIGHT WITHIN REACH. SAFETY PRECAUTIONS OBSERVED. WILL ENDORSE TO NEXT SHIFT FOR CRYSTAL.
[2016-05-26 08:00] VITALS: BP 139/65
--- NOTE | 2016-05-26 08:00 | NUR ---
MS/RN Patient received Patient received from grinder operator external tool, no needs at this time. Sat out in wheelchair, reminded to to back to bed frequently to relieve pressure on his sacral area. Call light within reach, will continue to monitor.
[2016-05-26] MEDS: ATORVASTATIN 40 MG TABLET PO SCH (08:04)
[2016-05-26] MEDS: PANTOPRAZOLE 40 MG TABLET.DR PO SCH (08:04)
[2016-05-26] MEDS: LEVOTHYROXINE SODIUM 100 MCG TABLET PO SCH (08:04)
[2016-05-26] MEDS: MULTIVITAMINS W-MINERALS 1 TAB TABLET PO SCH (08:04)
[2016-05-26] MEDS: FUROSEMIDE 40 MG TABLET PO SCH (08:05)
[2016-05-26] MEDS: DAKINS QUARTER STRENGTH (0.125%) 480 ML BOTTLE TOP SCH (08:05)
[2016-05-26] MEDS: DILTIAZEM HCL CD 240 MG PO SCH (08:05)
[2016-05-26] MEDS: NEOMY SULF/BACITRAC ZN/POLY 15 GM TUBE TP SCH (08:05)
[2016-05-26] MEDS: QUETIAPINE FUMARATE 25 MG TABLET PO SCH ×2 (08:05→17:14)
[2016-05-26] MEDS: CARVEDILOL 12.5 MG TABLET PO SCH (08:06)
[2016-05-26] MEDS: LISINOPRIL (5MG) 5 MG TABLET PO SCH (08:06)
[2016-05-26] MEDS: METOPROLOL SUCCINATE 25 MG TAB.SR.24H PO SCH (08:06)
[2016-05-26] MEDS: Z GUARD REMEDY 2 OZ OINT TP SCH ×2 (08:07→17:14)
[2016-05-26] MEDS: ASCORBIC ACID 500 MG TABLET PO SCH (08:08)
--- NOTE | 2016-05-26 08:45 | NUR ---
MS/RN Medications Morning medications administered as ordered.
--- NOTE | 2016-05-26 09:18 | NUR ---
MS/RN Dressings Dressings changed to right foot and right ambriz as ordered.
--- NOTE | 2016-05-26 11:30 | NUR ---
MS/RN S/B Dr Davila Seen by Dr Davila - to continue with current plan of care, no new orders.
--- NOTE | 2016-05-26 14:53 | NUR ---
MS/RN Vanco trough Vanco trough to be drawn 05/27 at 1900.
[2016-05-26 16:00] VITALS: BP 120/71
--- NOTE | 2016-05-26 18:18 | NUR ---
MS/RN End note Dressing to right lower extremity remains dry and intact. Last pain medication (norco 10/325) administered at 1600. No new needs or concerns at this time, will endorse to custom furrier.
--- NOTE | 2016-05-26 19:30 | NUR ---
MS RN OPENING NOTES: PATIENT IN BED, AOX4, ON ROOM AIR, BREATHING EVEN AND UNLABORED. STATES THAT HE HAS 8/10 PAIN OVER HIS R FOOT. NOTED R FOOT WITH CLEAN INTACT DRESSING. PIV ACCESS OVER LFA G 22 INTACT AND PATENT TO FLUSH. PROVIDED FOR COMFORT AND SAFETY. WILL CONT TO MONITOR.
[2016-05-26 20:00] VITALS: BP 103/73
--- NOTE | 2016-05-26 20:30 | NUR ---
RN NOTES: PATIENT C/O 8/10 PAIN OVER HIS R FOOT. ADMINISTERED NORCO 10-325 MG PO. WILL CONT TO MONITOR.
[2016-05-26] MEDS: CEFTRIAXONE 1 G in IV D5W 50 ML IV SCH (20:31)
[2016-05-26] MEDS ORDERED: IV SET PRIMARY PUMP SET 1 EA INFUS.SET MC ONE (20:41)
[2016-05-26] MEDS ORDERED: IV NS 0.9% 250 ML IV ONE (20:41)
[2016-05-26] MEDS ORDERED: SECONDARY IV SET 1 EA INFUS.SET MC ONE ×2 (20:41→22:52)
[2016-05-26 22:00] VITALS: BP 103/73
[2016-05-26] MEDS: VANCOMYCIN 1.5 GM in IV D5W 500 ML IV SCH (22:58)
--- NOTE | 2016-05-26 23:00 | NUR ---
RN NOTES: BS CHECKED AT 174 MG/DL, ADMINISTERED 3 UNITS REGULAR INSULIN. LIGHT SNACK ALSO OFFERED. WILL CONT TO MONITOR.
[2016-05-27] MEDS: SUCRALFATE 1 G/10 ML UDC GT SCH ×3 (05:25→17:16)
[2016-05-27] MEDS: BLOOD SUGAR DIAGNOSTIC 1 EACH STRIP VI SCH ×4 (06:32→21:45)
[2016-05-27] MEDS: INSULIN REGULAR, HUMAN 100 UNIT/ML 3 ML VIAL SQ PRN ×3 (06:43→17:16)
[2016-05-27 06:58] LABS: CALCIUM, SERUM 8.1 mg/dL (8.5-10.1); CREATININE 1.2 mg/dL (0.6-1.3); POTASSIUM 4.2 mmol/L (3.5-5.1)
--- NOTE | 2016-05-27 07:02 | NUR ---
MS RN CLOSING NOTES: PATIENT IN SITTING ON BED, AOX4, ON ROOM AIR, BREATHING EVEN AND UNLABORED. PIV OVER LFA G 22 INTACT AND PATENT TO FLUSH. BLOOD SUGAR CHECKED AT 136 MG/DL, ADMINISTERED 2 UNITS OF REGULAR INSULIN. DUE MEDS GIVEN. WOUND CARE DONE OVER R GUZMAN AND R FOOT. PROVIDED FOR COMFORT AND SAFETY. NO ACUTE CHANGE IN CONDITION NOTED THROUGH SHIFT. WILL ENDORSE TO AM RN FOR CRYSTAL.
--- NOTE | 2016-05-27 07:10 | NUR ---
MS RN NOTES RECEIVED PATIENT AWAKE, UP SITTING IN THE CHAIR. RIGHT FOOT DRESSING INTACT. BREATHING EVEN AND NON LABORED. NO C/O PAIN AT THIS TIME. CALL LIGHT WITHIN REACH. WILL CONT TO MONITOR.
[2016-05-27 08:00] VITALS: BP 121/76
[2016-05-27] MEDS: PANTOPRAZOLE 40 MG TABLET.DR PO SCH (08:08)
[2016-05-27] MEDS: HYDROCODONE/APAP 10/325MG 1 EA TABLET PO PRN ×3 (08:08→20:05)
[2016-05-27] MEDS: LEVOTHYROXINE SODIUM 100 MCG TABLET PO SCH (08:09)
[2016-05-27] MEDS: MULTIVITAMINS W-MINERALS 1 TAB TABLET PO SCH (08:10)
[2016-05-27] MEDS: ATORVASTATIN 40 MG TABLET PO SCH (08:10)
[2016-05-27] MEDS: ASCORBIC ACID 500 MG TABLET PO SCH (08:11)
[2016-05-27] MEDS: CARVEDILOL 12.5 MG TABLET PO SCH (08:11)
[2016-05-27] MEDS: FUROSEMIDE 40 MG TABLET PO SCH (08:11)
[2016-05-27] MEDS: LISINOPRIL (5MG) 5 MG TABLET PO SCH (08:11)
[2016-05-27] MEDS: METOPROLOL SUCCINATE 25 MG TAB.SR.24H PO SCH (08:11)
[2016-05-27] MEDS: QUETIAPINE FUMARATE 25 MG TABLET PO SCH ×2 (08:11→16:26)
[2016-05-27] MEDS: DILTIAZEM HCL CD 240 MG PO SCH (08:12)
[2016-05-27 08:52] VITALS: BP 121/76
[2016-05-27] MEDS: DAKINS QUARTER STRENGTH (0.125%) 480 ML BOTTLE TOP SCH (09:24)
[2016-05-27] MEDS: Z GUARD REMEDY 2 OZ OINT TP SCH ×2 (09:25→16:27)
[2016-05-27] MEDS: NEOMY SULF/BACITRAC ZN/POLY 15 GM TUBE TP SCH (09:25)
--- NOTE | 2016-05-27 09:35 | NUR ---
PATIENT IS SEEN BY DR. MARTIN TODAY, ASSISTED MD WITH WOUND DRESSING CHANGED, PATIENT TOLERATED WELL. Addendum: 05/27/16 at 1132 by KATHERIN ABREU RN CONTINUE FROM ABOVE NOTES. POST RIGHT FOOT IRRIGATION AND DEBRIDEMENT TODAY BY DR. MARTIN, PATIENT TOLERATED WELL.
--- NOTE | 2016-05-27 12:00 | NUR ---
BS 179MG/DL. GIVEN 3 UNITS INSULIN REGULAR SQ PER ISS COVERAGE.
[2016-05-27 16:00] VITALS: BP 100/54
[2016-05-27 16:09] VITALS: BP 100/54
--- NOTE | 2016-05-27 18:13 | NUR ---
MS RN CLOSING NOTES PATIENT UP SITTING IN THE WHEELCHAIR, NOT IN DISTRESS. BLOOD SUGAR MONITORED. ON ANTIBIOTIC WITH NO ADVERSE SIDE EFFECT, AFEBRILE. RIGHT FOOT DRESSING INTACT. NO C/O PAIN AT THIS TIME, ON PAIN MANAGEMENT. CALL LIGHT WITHIN REACH. PLAN SURGERY ON SUNDAY PER DR. MARTIN. WILL ENDORSE TO AMORTIZATION SCHEDULE CLERK RN FOR CONTINUITY OF CARE.
--- NOTE | 2016-05-27 19:40 | NUR ---
MS RN INITIAL NOTES: RECEIVED REPORT FROM KATHERIN BANUELOS. PT SITTING ON A WHEELCHAIR, A/O X3, ON ROOM AIR, C/O PAIN ON RIGHT FOOT 11/28 REQUESTING FOR NORCO. PT S/P RIGHT FOOT DEBRIDEMENT AND IRRIGATION BY DR MARTIN TODAY 05/27/16. HAS LEFT FA IV ACCESS PATENT AND FLUSHING WELL, ON HL. RIGHT FOOT DRESSING C/D/I, NO ACTIVE BLEEDING NOTED. SAFETY PRECAUTIONS FOR FALL INITAITED CALL LIGHT IN REACH, WILL CONTINUE TO MONITOR
[2016-05-27] MEDS: CEFTRIAXONE 1 G in IV D5W 50 ML IV SCH (19:55)
[2016-05-27 20:00] VITALS: BP 106/53
--- NOTE | 2016-05-27 20:06 | NUR ---
MS RN NOTES: PT C/O PAIN ON HIS RIGHT FOOT REQUESTING FOR NORCO. PRN NORCO 10/325 MG TAB PO ADMINISTERED TO THE PT AT THIS TIME. EDUCATE PT REGARDING MEDICATION SIDE EFFECT, WILL CONTINUE TO MONITOR AND REASSESS
--- NOTE | 2016-05-27 20:29 | NUR ---
RN NOTES: PT REQUESTED TO GO DOWN TO SMOKE, SMOKING CONSENT ATTACHED TO CHART, EDUCATE PT REGARDING RISK OF SMOKING, ADVICE TO SMOKING CESSATION, WENT DOWN ASSISTED BY HELENA HERNÁNDEZ
[2016-05-27] MEDS: VANCOMYCIN 1.5 GM in IV D5W 500 ML IV SCH (21:45)
--- NOTE | 2016-05-27 21:45 | NUR ---
ms rn notes: result of vanco trough came back and it was 14, administered vancomycin 1.5gm iv at this time, explain to the pt regarding medication action and side effect, informed also this atb will run for 2hrs. pt agree.
[2016-05-27] MEDS: *INSULIN REGULAR(HUMULIN R)HUM 100 UNIT/ML VIAL SQ PRN (21:47)
--- NOTE | 2016-05-27 21:47 | NUR ---
MS RN NOTES: CHECKED BLOOD SUGARA ND REVEAL 233, 4UNITS OF INSULIN GIVEN PER SLIDING SCALE
--- NOTE | 2016-05-27 22:10 | NUR ---
ms rn notes: pt called, complaining that the vanco iv atb is running too low, and that it still not finish at this time, informed pt that rn explained earlier that medicine will run for 2hrs as it is 1.5gm and 500ml bag. pt claimed, its too slow, informed pt meds running at 250ml/hr. pt stated nobody told him about the medicine, and that he's not comfortable getting it too long. explain to the pt that prior to administering the medication rn explain to him about medication purpose/action and duration, even the frequency.
[2016-05-27 22:43] VITALS: BP 106/53
[2016-05-28] MEDS: SUCRALFATE 1 G/10 ML UDC GT SCH ×5 (00:16→23:05)
[2016-05-28] MEDS: HYDROCODONE/APAP 10/325MG 1 EA TABLET PO PRN ×4 (00:17→19:03)
--- NOTE | 2016-05-28 00:17 | NUR ---
MS RN NOTES: PT C/O PAIN 9/10 ON HIS RIGHT LEG AND NECK, REQUESTING FOR NORCO, PRN NORCO 10/325 MG TAB PO ADMINISTERED TO THE PT AT THIS TIME, WILL CONTINUE TO MONITOR AND REASSESS
[2016-05-28] MEDS: BLOOD SUGAR DIAGNOSTIC 1 EACH STRIP VI SCH ×4 (06:47→21:13)
[2016-05-28] MEDS: INSULIN REGULAR, HUMAN 100 UNIT/ML 3 ML VIAL SQ PRN ×3 (06:49→17:16)
--- NOTE | 2016-05-28 06:49 | NUR ---
MS RN NOTES: ACCU CHECK DONE AND REVEAL 139, 2UNITS OF INSULIN GIVEN PER SLIDING SCALE
--- NOTE | 2016-05-28 07:02 | NUR ---
ms rn closing notes: pt in the wheelchair, no sob noted, denies any pain or discomfort at this time. right foot dressing remains c/d/i. no active bleeding noted. rfa iv access remains patent and flushing well, on hl.vs remains stable, needs attended. safety precautions for fall remains engaged. call light in reach. will endorse to day rn for ramez.
[2016-05-28 07:06] LABS: CALCIUM, SERUM 8.4 mg/dL (8.5-10.1); CREATININE 1.2 mg/dL (0.6-1.3); POTASSIUM 4.5 mmol/L (3.5-5.1)
--- NOTE | 2016-05-28 07:10 | NUR ---
MS RN OPENING RECEIVED PATIENT A/OX4 STATES SLIGHT PAIN IN LEG BUT DOES NOT WANT ANY PAIN MEDICATIONS AT THIS TIME. PATIENT DRESSING CLEAN DRY AND INTACT WILL COMPLETE WOUND CARE ORDERED TODAY. PATIENT DENIES SOB, DIFFICULTY BREATHING OR PAIN AT THIS TIME. PATIENT SITTING IN WHEELCHAIR AT THIS TIME AND STATES NO NEEDS AND PATIENT IN POSITION OF COMFORT. PATIENT WITH CALL LIGHT IN REACH AND WILL ROUND Q2H OR LESS PER NEEDS.
[2016-05-28 08:00] VITALS: BP 128/74
[2016-05-28] MEDS: CARVEDILOL 12.5 MG TABLET PO SCH (09:00)
[2016-05-28] MEDS: METOPROLOL SUCCINATE 25 MG TAB.SR.24H PO SCH (09:00)
[2016-05-28] MEDS: LEVOTHYROXINE SODIUM 100 MCG TABLET PO SCH (09:31)
[2016-05-28] MEDS: LISINOPRIL (5MG) 5 MG TABLET PO SCH (09:32)
[2016-05-28] MEDS: PANTOPRAZOLE 40 MG TABLET.DR PO SCH (09:32)
[2016-05-28] MEDS: DILTIAZEM HCL CD 240 MG PO SCH (09:32)
[2016-05-28] MEDS: ASCORBIC ACID 500 MG TABLET PO SCH (09:33)
[2016-05-28] MEDS: ATORVASTATIN 40 MG TABLET PO SCH (09:33)
[2016-05-28] MEDS: MULTIVITAMINS W-MINERALS 1 TAB TABLET PO SCH (09:33)
[2016-05-28] MEDS: QUETIAPINE FUMARATE 25 MG TABLET PO SCH ×2 (09:33→17:12)
[2016-05-28] MEDS: Z GUARD REMEDY 2 OZ OINT TP SCH ×2 (09:33→17:12)
[2016-05-28] MEDS: NEOMY SULF/BACITRAC ZN/POLY 15 GM TUBE TP SCH (09:33)
[2016-05-28] MEDS: FUROSEMIDE 40 MG TABLET PO SCH (09:33)
[2016-05-28] MEDS: DAKINS QUARTER STRENGTH (0.125%) 480 ML BOTTLE TOP SCH (09:34)
[2016-05-28 16:00] VITALS: BP_SYST 102; BP_SYST 118; BP_DIAS 40; BP_DIAS 82
[2016-05-28] MEDS: CEFTRIAXONE 1 G in IV D5W 50 ML IV SCH (19:03)
[2016-05-28 20:00] VITALS: BP 100/58
[2016-05-28 20:27] VITALS: BP_SYST 58
[2016-05-28] MEDS: VANCOMYCIN 1.5 GM in IV D5W 500 ML IV SCH (20:32)
[2016-05-28] MEDS: *INSULIN REGULAR(HUMULIN R)HUM 100 UNIT/ML VIAL SQ PRN (21:28)
[2016-05-29] MEDS: LEVOTHYROXINE SODIUM 100 MCG TABLET PO SCH (06:36)
[2016-05-29] MEDS: SUCRALFATE 1 G/10 ML UDC GT SCH ×4 (06:36→23:46)
[2016-05-29] MEDS: BLOOD SUGAR DIAGNOSTIC 1 EACH STRIP VI SCH ×4 (06:36→22:05)
[2016-05-29] MEDS: PANTOPRAZOLE 40 MG TABLET.DR PO SCH (06:36)
[2016-05-29] MEDS: INSULIN REGULAR, HUMAN 100 UNIT/ML 3 ML VIAL SQ PRN ×3 (06:40→17:28)
--- NOTE | 2016-05-29 06:57 | NUR ---
MS RN CLOSING PT STABLE NO COMPLICATIONS THROUGHOUT DAY. ALL DUE MEDS GIVEN AND ALL NEEDS MET. PATIENT STATES NO NEEDS AT THIS TIME. DRESSING DRY AND INTACT CLEAN. PATIENT SITTING IN WHEELCHAIR AT THIS TIME. CARE ENDORSED TO RN AT THIS TIME
[2016-05-29 07:28] LABS: CALCIUM, SERUM 8.6 mg/dL (8.5-10.1); CREATININE 1.5 mg/dL (0.6-1.3); POTASSIUM 4.6 mmol/L (3.5-5.1)
[2016-05-29 08:00] VITALS: BP 105/58
[2016-05-29] MEDS: CARVEDILOL 12.5 MG TABLET PO SCH (08:27)
[2016-05-29] MEDS: FUROSEMIDE 40 MG TABLET PO SCH (08:27)
[2016-05-29] MEDS: DILTIAZEM HCL CD 240 MG PO SCH (08:27)
[2016-05-29] MEDS: MULTIVITAMINS W-MINERALS 1 TAB TABLET PO SCH (08:28)
[2016-05-29] MEDS: ATORVASTATIN 40 MG TABLET PO SCH (08:28)
[2016-05-29] MEDS: METOPROLOL SUCCINATE 25 MG TAB.SR.24H PO SCH (08:29)
[2016-05-29] MEDS: LISINOPRIL (5MG) 5 MG TABLET PO SCH (08:29)
[2016-05-29] MEDS: QUETIAPINE FUMARATE 25 MG TABLET PO SCH ×2 (08:29→17:22)
[2016-05-29] MEDS: ASCORBIC ACID 500 MG TABLET PO SCH (08:30)
[2016-05-29] MEDS: DAKINS QUARTER STRENGTH (0.125%) 480 ML BOTTLE TOP SCH (08:30)
[2016-05-29] MEDS: Z GUARD REMEDY 2 OZ OINT TP SCH ×2 (08:32→17:29)
--- NOTE | 2016-05-29 09:07 | NUR ---
MS/RN Medications Morning medications administered as ordered.
--- NOTE | 2016-05-29 09:42 | NUR ---
MS/RN NPO Order entered into computer for patient to be NPO starting now. Dr Jorgensen called via wound center to enquire as to reason why.
--- NOTE | 2016-05-29 10:15 | NUR ---
MS/RN Orders Order received from MD to cancel NPO status and reenter for midnight.
--- NOTE | 2016-05-29 12:00 | NUR ---
MS/RN Blood sugar Blood sugar at noon - 172, three units regular insulin administered.
[2016-05-29] MEDS: NEOMY SULF/BACITRAC ZN/POLY 15 GM TUBE TP SCH (12:23)
[2016-05-29 16:00] VITALS: BP 111/60
--- NOTE | 2016-05-29 17:00 | NUR ---
MS/RN Blood sugar Blood sugar at 5p - 152, two units insulin given.
--- NOTE | 2016-05-29 18:03 | NUR ---
MS/RN Dr Langford Order given by Dr Langford for patient to be NPO from midnight and to be consented for right foot debridement and wound vac application. IV fluids to be started from midnight - D51/2NS @60ml/hr.
--- NOTE | 2016-05-29 18:53 | NUR ---
MS/RN End note All consent forms signed and placed in chart, pre op labs,tests ordered. Patient aware that no eating or drinking from midnight and that IV fluids will be started to prevent blood sugars from dropping. Wound vac ordered from central supply, per Maryanne, wound vac will be delivered tomorrow morning as if delivered tonight patient will be charged from the time that it is brought to room. Will endorse to overnight stocker.
[2016-05-29 19:11] LABS: BASOPHILS % (AUTO) 0.4 % (0.0-2.0); EOSINOPHILS # (AUTO) 0.2 /CMM (0.0-0.7); EOSINOPHILS % (AUTO) 3.2 % (0.0-6.0); HEMATOCRIT 28 % (39-51); HEMOGLOBIN 9.3 g/dL (13.5-17.5); LYMPHOCYTES # (AUTO) 1.2 /CMM (0.8-4.8); LYMPHOCYTES % (AUTO) 18.2 % (20.0-44.0); MEAN CORPUSCULAR HEMOGLOBIN 28 PG (26.0-33.0); MEAN CORPUSCULAR HGB CONC 33 g/dl (31.0-36.0); MEAN CORPUSCULAR VOLUME 84 fL (80-96); MONOCYTES # (AUTO) 0.3 /CMM (0.1-1.30); MONOCYTES % (AUTO) 4.7 % (2.0-12.0); NEUTROPHILS # (AUTO) 4.6 /CMM (1.8-8.9); NEUTROPHILS % (AUTO) 73.5 % (43.0-81.0); PLATELET COUNT (AUTO) 297 /CMM (150-450); RDW COEFFICIENT OF VARIATION 14.9 (11.5-15.0); RED BLOOD CELL COUNT(AUTO) 3.36 MIL/uL (4.5-6.0); WHITE BLOOD COUNT (AUTO) 6.4 K/uL (4.3-11.0)
[2016-05-29 19:33] LABS: CALCIUM, SERUM 8.6 mg/dL (8.5-10.1); CREATININE 1.3 mg/dL (0.6-1.3); MAGNESIUM 2.2 mg/dL (1.8-2.4); PHOSPHORUS 3.3 mg/dL (2.5-4.9); POTASSIUM 4.5 mmol/L (3.5-5.1)
--- NOTE | 2016-05-29 19:35 | NUR ---
MSRN FULLY AWAKE, VERY PLEASANT. RIGHT FOOT DRESSING DRY AND INTACT. FOR OR I AM FOR RIGHT FOOT DEBRIDEMENT AT 0730. WANTED TO GO DOWN FOR SMOKE, ASSISTED BY ELIGIBILITY SERVICES REPRESENTATIVE. WHELLCHAIR BOUND. NO SOB NO DISCOMFORTS AT THIS TIME.
[2016-05-29 19:37] LABS: INR 1.05 (0.87-1.13); PROTHROMBIN TIME 11.3 SECS (9.5-12.7)
[2016-05-29 20:22] VITALS: BP 108/61
[2016-05-29] MEDS: CEFTRIAXONE 1 G in IV D5W 50 ML IV SCH (20:38)
[2016-05-29] MEDS: HYDROCODONE/APAP 10/325MG 1 EA TABLET PO PRN (20:47)
--- NOTE | 2016-05-29 20:50 | NUR ---
MSRN VERBALIZES RIGHT FOOT PAIN, MEDICATED WITH PO NORCO 1 TAB. BEDREST FOR NOW.
[2016-05-29] MEDS: VANCOMYCIN 1.5 GM in IV D5W 500 ML IV SCH (21:26)
--- NOTE | 2016-05-29 21:30 | NUR ---
MSRN BS WAS 181 COVERED WITH 3 UNITS REGULAR INSULIN SQ. SNACKS PROVIDED.
[2016-05-29] MEDS: *INSULIN REGULAR(HUMULIN R)HUM 100 UNIT/ML VIAL SQ PRN (22:09)
--- NOTE | 2016-05-29 23:35 | NUR ---
MSRN ANTIBIOTICS IV ALL INFUSED. WILL KEEP PATIENT NPO FOR PROCEDURE IN AM.
[2016-05-30] MEDS: IV D5/0.45 NACL 1,000 ML IV PRN (01:11)
--- NOTE | 2016-05-30 01:48 | NUR ---
MSRN IVF INFUSIING WELL VIA RIGHT FA. REMINDED NPO, WELL UNDERSTOOD.
--- NOTE | 2016-05-30 04:47 | NUR ---
MSRN SLEPT WELL. IVF INFUSING WELL. NPO MAINTAINED.
[2016-05-30] MEDS: BLOOD SUGAR DIAGNOSTIC 1 EACH STRIP VI SCH ×4 (05:51→21:52)
[2016-05-30] MEDS: SUCRALFATE 1 G/10 ML UDC GT SCH ×3 (05:52→17:20)
--- NOTE | 2016-05-30 05:53 | NUR ---
msrn BS 142. KEPT NPO FOR SURGERY TODAY
[2016-05-30 06:48] LABS: BASOPHILS % (AUTO) 0.3 % (0.0-2.0); EOSINOPHILS # (AUTO) 0.1 /CMM (0.0-0.7); EOSINOPHILS % (AUTO) 2.4 % (0.0-6.0); HEMATOCRIT 27 % (39-51); LYMPHOCYTES # (AUTO) 1.2 /CMM (0.8-4.8); LYMPHOCYTES % (AUTO) 20.1 % (20.0-44.0); MEAN CORPUSCULAR HEMOGLOBIN 28 PG (26.0-33.0); MEAN CORPUSCULAR HGB CONC 33 g/dl (31.0-36.0); MEAN CORPUSCULAR VOLUME 84 fL (80-96); MONOCYTES # (AUTO) 0.4 /CMM (0.1-1.30); MONOCYTES % (AUTO) 6.1 % (2.0-12.0); NEUTROPHILS # (AUTO) 4.1 /CMM (1.8-8.9); NEUTROPHILS % (AUTO) 71.1 % (43.0-81.0); PLATELET COUNT (AUTO) 314 /CMM (150-450); RDW COEFFICIENT OF VARIATION 16.3 (11.5-15.0); RED BLOOD CELL COUNT(AUTO) 3.22 MIL/uL (4.5-6.0); WHITE BLOOD COUNT (AUTO) 5.8 K/uL (4.3-11.0)
--- NOTE | 2016-05-30 06:56 | NUR ---
MSRN BS 142, NO COVERAGE FOR NOW. NPO MAINTAINED. OR NURSE AT BEDSIDE.WOUND VAC TO GO WITH PATIENT.
[2016-05-30 07:13] LABS: CALCIUM, SERUM 8.4 mg/dL (8.5-10.1); CREATININE 1.3 mg/dL (0.6-1.3); MAGNESIUM 2.1 mg/dL (1.8-2.4); PHOSPHORUS 3.4 mg/dL (2.5-4.9); POTASSIUM 4.3 mmol/L (3.5-5.1)
[2016-05-30] MEDS ORDERED: BACITRACIN 50000 UNITS/VIAL ONE (07:16)
[2016-05-30] MEDS: FUROSEMIDE 40 MG TABLET PO SCH (08:54)
[2016-05-30] MEDS: LEVOTHYROXINE SODIUM 100 MCG TABLET PO SCH (08:54)
[2016-05-30] MEDS: MULTIVITAMINS W-MINERALS 1 TAB TABLET PO SCH (08:54)
[2016-05-30] MEDS: ATORVASTATIN 40 MG TABLET PO SCH (08:54)
[2016-05-30] MEDS: ASCORBIC ACID 500 MG TABLET PO SCH (08:54)
[2016-05-30] MEDS: PANTOPRAZOLE 40 MG TABLET.DR PO SCH (08:55)
[2016-05-30] MEDS: QUETIAPINE FUMARATE 25 MG TABLET PO SCH ×2 (08:55→17:20)
[2016-05-30] MEDS: CARVEDILOL 12.5 MG TABLET PO SCH (08:57)
[2016-05-30] MEDS: LISINOPRIL (5MG) 5 MG TABLET PO SCH (08:58)
[2016-05-30] MEDS: METOPROLOL SUCCINATE 25 MG TAB.SR.24H PO SCH (08:58)
[2016-05-30] MEDS: DILTIAZEM HCL CD 240 MG PO SCH (08:59)
[2016-05-30] MEDS: NEOMY SULF/BACITRAC ZN/POLY 15 GM TUBE TP SCH (09:00)
[2016-05-30] MEDS: DAKINS QUARTER STRENGTH (0.125%) 480 ML BOTTLE TOP SCH (09:00)
--- NOTE | 2016-05-30 09:00 | NUR ---
MS RN NOTES PATIENT RETURNED FROM OR S/P DEBRIDEMENT VS WNL. PATIENT ALERT, ORIENTED X3. NO SOB OR ACUTE DISTRESS NOTED. WITH WOUND VAC ON RIGHT FOOT. INTACT PATENT ON 125 WITH CONTINUES PRESSURE. WILL CONTINUE TO MONITOR CLOSELY.
[2016-05-30] MEDS: Z GUARD REMEDY 2 OZ OINT TP SCH ×2 (09:06→17:21)
--- NOTE | 2016-05-30 12:00 | NUR ---
MS RN NOTES PATIENT SEEN AND EVALUATED BY DR. WOOD ORDERS NOTED AND CARRIED OUT.
[2016-05-30] MEDS: HYDROCODONE/APAP 10/325MG 1 EA TABLET PO PRN ×2 (12:36→21:48)
[2016-05-30] MEDS: INSULIN REGULAR, HUMAN 100 UNIT/ML 3 ML VIAL SQ PRN ×2 (12:39→17:27)
[2016-05-30 16:00] VITALS: BP_SYST 104; BP_SYST 114; BP_DIAS 56; BP_DIAS 63
[2016-05-30] MEDS: LEVOFLOXACIN (500MG) 500 MG TABLET PO SCH (17:20)
--- NOTE | 2016-05-30 18:00 | NUR ---
MS RN NOTES PATIENT IN BED RESTING NO SOB OR ACUTE DISTRESS NOTED. ALL DUE MEDICATIONS GIVEN. ALL NEEDS MET. PATIENT SITTING IN BED. IV INTACT ON RIGHT ARM. WILL ENDORSE TO PM SHIFT CRYTSAL.
--- NOTE | 2016-05-30 19:30 | NUR ---
msrn FULLY AWAKE, RIGHT FOOT WITH DRESSING DRY AND INTACT, CONNECTED TO WOUND VAC MINIMAL AMOUNT OF SEROSANGUINOUS DRAINAGE ALONG VAC TUBING SEEN. BEDREST EMPHASIZED, WANTED TO HAVE PAIN MEDICINE FOR HIS FOOT IF PAIN WORSENS. WILL CALL STAFF.
[2016-05-30 20:00] VITALS: BP 111/81
[2016-05-30] MEDS: VANCOMYCIN 1.5 GM in IV D5W 500 ML IV SCH (20:35)
[2016-05-30] MEDS: CEFTRIAXONE 1 G in IV D5W 50 ML IV SCH (20:36)
--- NOTE | 2016-05-30 20:40 | NUR ---
MSRN WANTED TO GO DOWN FOR SMOKE, WITH WOUND VAC, HARD TILE SETTER ASSISTING.
--- NOTE | 2016-05-30 22:00 | NUR ---
MSRN BS WAS 132 COVERED WITH 2 UNITS OF REGULAR INSULIN SQ. SNACKS PROVIDED.
[2016-05-30] MEDS: *INSULIN REGULAR(HUMULIN R)HUM 100 UNIT/ML VIAL SQ PRN (22:03)
[2016-05-31] MEDS: SUCRALFATE 1 G/10 ML UDC GT SCH ×4 (00:31→17:44)
--- NOTE | 2016-05-31 00:33 | NUR ---
MSRN SLEEPS ON/OFF, MIDNIGHT SNACKS REQUESTED. ALL NEEDS ATTENDED.
[2016-05-31] MEDS: BLOOD SUGAR DIAGNOSTIC 1 EACH STRIP VI SCH ×4 (06:24→21:08)
--- NOTE | 2016-05-31 06:33 | NUR ---
MSRN BS 150. 2UNITS SQ REG INSULIN GIVEN PER SLIDING.
[2016-05-31 06:54] LABS: BASOPHILS % (AUTO) 0.3 % (0.0-2.0); EOSINOPHILS # (AUTO) 0.2 /CMM (0.0-0.7); HEMATOCRIT 27 % (39-51); HEMOGLOBIN 8.7 g/dL (13.5-17.5); LYMPHOCYTES # (AUTO) 1.3 /CMM (0.8-4.8); LYMPHOCYTES % (AUTO) 18.8 % (20.0-44.0); MEAN CORPUSCULAR HEMOGLOBIN 28 PG (26.0-33.0); MEAN CORPUSCULAR HGB CONC 33 g/dl (31.0-36.0); MEAN CORPUSCULAR VOLUME 85 fL (80-96); MONOCYTES # (AUTO) 0.5 /CMM (0.1-1.30); MONOCYTES % (AUTO) 7.3 % (2.0-12.0); NEUTROPHILS # (AUTO) 4.8 /CMM (1.8-8.9); NEUTROPHILS % (AUTO) 70.6 % (43.0-81.0); PLATELET COUNT (AUTO) 289 /CMM (150-450); RDW COEFFICIENT OF VARIATION 16.2 (11.5-15.0); RED BLOOD CELL COUNT(AUTO) 3.14 MIL/uL (4.5-6.0); WHITE BLOOD COUNT (AUTO) 6.7 K/uL (4.3-11.0)
[2016-05-31 07:01] LABS: CALCIUM, SERUM 8.1 mg/dL (8.5-10.1); CREATININE 1.3 mg/dL (0.6-1.3); PHOSPHORUS 3.6 mg/dL (2.5-4.9); POTASSIUM 4.5 mmol/L (3.5-5.1)
[2016-05-31] MEDS: INSULIN REGULAR, HUMAN 100 UNIT/ML 3 ML VIAL SQ PRN ×3 (07:17→17:45)
--- NOTE | 2016-05-31 07:30 | NUR ---
MS/RN Patient received Patient received from shift superintendent. No distress noted, no needs at this time. Call light within reach, will continue to monitor and ensure safety.
[2016-05-31 08:00] VITALS: BP 133/55
[2016-05-31] MEDS: MULTIVITAMINS W-MINERALS 1 TAB TABLET PO SCH (08:24)
[2016-05-31] MEDS: QUETIAPINE FUMARATE 25 MG TABLET PO SCH ×2 (08:24→17:44)
[2016-05-31] MEDS: FUROSEMIDE 40 MG TABLET PO SCH (08:24)
[2016-05-31] MEDS: ASCORBIC ACID 500 MG TABLET PO SCH (08:24)
[2016-05-31] MEDS: PANTOPRAZOLE 40 MG TABLET.DR PO SCH (08:24)
[2016-05-31] MEDS: LEVOTHYROXINE SODIUM 100 MCG TABLET PO SCH (08:24)
[2016-05-31] MEDS: ATORVASTATIN 40 MG TABLET PO SCH (08:24)
[2016-05-31] MEDS: LISINOPRIL (5MG) 5 MG TABLET PO SCH (08:25)
[2016-05-31] MEDS: DILTIAZEM HCL CD 240 MG PO SCH (08:25)
[2016-05-31] MEDS: CARVEDILOL 12.5 MG TABLET PO SCH (08:26)
[2016-05-31] MEDS: METOPROLOL SUCCINATE 25 MG TAB.SR.24H PO SCH (08:26)
[2016-05-31] MEDS: NEOMY SULF/BACITRAC ZN/POLY 15 GM TUBE TP SCH (08:27)
[2016-05-31] MEDS: Z GUARD REMEDY 2 OZ OINT TP SCH ×2 (08:27→17:00)
[2016-05-31] MEDS: DAKINS QUARTER STRENGTH (0.125%) 480 ML BOTTLE TOP SCH (08:27)
--- NOTE | 2016-05-31 09:00 | NUR ---
MS/RN Medications Morning medications administered as ordered.
--- NOTE | 2016-05-31 09:10 | NUR ---
MS/RN S/B Dr Waite Seen by Dr Waite - no new orders, to continue with current treatment and wound vac.
[2016-05-31] MEDS ORDERED: MINERAL OIL/PETROLATUM,WHITE 120 GM JAR TP PRN (10:30)
--- NOTE | 2016-05-31 12:15 | NUR ---
MS/actuarial clerk vac Wound vac drainage tube disconnected from black sponge. Replaced and reconnected, no leak detected.
--- NOTE | 2016-05-31 12:30 | NUR ---
MS/RN Blood sugar Blood sugar 172, per sliding scale three units regular insulin given.
[2016-05-31 16:00] VITALS: BP 115/71
--- NOTE | 2016-05-31 17:00 | NUR ---
MS/RN Blood sugar Blood sugar at 5p - 222, six units regular insulin administered.
[2016-05-31] MEDS: LEVOFLOXACIN (500MG) 500 MG TABLET PO SCH (17:44)
--- NOTE | 2016-05-31 18:17 | NUR ---
MS/RN End note Patient's condition remains unchanged, wound vac with 75ml output in total (25ml from this shift). Continues to deny pain. Will endorse to overnight caregiver.
[2016-05-31 20:00] VITALS: BP 120/63
--- NOTE | 2016-05-31 20:00 | NUR ---
MS RN NOTE: PATIENT RESTING IN BED, NO ACUTE DISTRESS NOTED. BREATHING EVEN AND UNLABORED, NO SOB NOTED. IV TO RIGHT HAND IN PLACE, INFUSING D5 1/2NS AT 60 ML/HR. WOUND VAC IN PLACE TO RIGHT FOOT WITH DRAINAGE OF 75 ML. PATIENT DENIES S/S OF HYPER/HYPOGLYCEMIA AT THIS TIME. BED LOCKED AND IN LOWEST POSITION, CALL LIGHT IN REACH. WILL CONTINUE TO MONITOR.
[2016-05-31] MEDS: CEFTRIAXONE 1 G in IV D5W 50 ML IV SCH (20:25)
[2016-05-31] MEDS: VANCOMYCIN 1.5 GM in IV D5W 500 ML IV SCH (21:07)
[2016-05-31] MEDS: IV D5/0.45 NACL 1,000 ML IV PRN (21:15)
[2016-05-31] MEDS: *INSULIN REGULAR(HUMULIN R)HUM 100 UNIT/ML VIAL SQ PRN (21:16)
[2016-05-31] MEDS: HYDROCODONE/APAP 10/325MG 1 EA TABLET PO PRN (21:23)
--- NOTE | 2016-05-31 21:30 | NUR ---
MS RN NOTE: PATIENT BLOOD SUGAR LEVEL 176 MG/DL, PATIENT TO RECEIVE 3 UNITS OF INSULIN PER SLIDING SCALE. PATIENT DENIES S/S OF HYPER/HYPOGLYCEMIA AT THIS TIME. WILL CONTINUE TO MONITOR.
[2016-05-31] MEDS ORDERED: IV SET PRIMARY PUMP SET 1 EA INFUS.SET MC ONE (23:43)
[2016-05-31] MEDS ORDERED: SECONDARY IV SET 1 EA INFUS.SET MC ONE (23:43)
[2016-06-01] MEDS: SUCRALFATE 1 G/10 ML UDC GT SCH ×4 (00:13→16:50)
[2016-06-01] MEDS: INSULIN REGULAR, HUMAN 100 UNIT/ML 3 ML VIAL SQ PRN ×3 (06:27→17:57)
[2016-06-01] MEDS: LEVOTHYROXINE SODIUM 100 MCG TABLET PO SCH (06:30)
[2016-06-01] MEDS: BLOOD SUGAR DIAGNOSTIC 1 EACH STRIP VI SCH ×4 (06:30→21:46)
[2016-06-01] MEDS: PANTOPRAZOLE 40 MG TABLET.DR PO SCH (06:30)
[2016-06-01 06:44] LABS: BASOPHILS % (AUTO) 0.3 % (0.0-2.0); EOSINOPHILS # (AUTO) 0.2 /CMM (0.0-0.7); EOSINOPHILS % (AUTO) 2.7 % (0.0-6.0); HEMATOCRIT 27 % (39-51); HEMOGLOBIN 8.8 g/dL (13.5-17.5); LYMPHOCYTES # (AUTO) 1.6 /CMM (0.8-4.8); LYMPHOCYTES % (AUTO) 22.4 % (20.0-44.0); MEAN CORPUSCULAR HEMOGLOBIN 28 PG (26.0-33.0); MEAN CORPUSCULAR HGB CONC 33 g/dl (31.0-36.0); MEAN CORPUSCULAR VOLUME 84 fL (80-96); MONOCYTES # (AUTO) 0.5 /CMM (0.1-1.30); MONOCYTES % (AUTO) 7.2 % (2.0-12.0); NEUTROPHILS # (AUTO) 4.8 /CMM (1.8-8.9); NEUTROPHILS % (AUTO) 67.4 % (43.0-81.0); PLATELET COUNT (AUTO) 275 /CMM (150-450); RDW COEFFICIENT OF VARIATION 16.4 (11.5-15.0); RED BLOOD CELL COUNT(AUTO) 3.16 MIL/uL (4.5-6.0); WHITE BLOOD COUNT (AUTO) 7.1 K/uL (4.3-11.0)
--- NOTE | 2016-06-01 06:45 | NUR ---
MS RN NOTE: PATIENT RESTING IN BED, NO ACUTE DISTRESS NOTED. BREATHING EVEN AND UNLABORED, NO SOB NOTED. IV TO RIGHT HAND IN PLACE, INFUSING D5 1/2NS AT 60 ML/HR. WOUND VAC IN PLACE TO RIGHT FOOT WITH DRAINAGE AT 100 ML. PATIENT BLOOD SUGAR LEVEL 146 MG/DL, PATIENT TO RECEIVE 2 UNITS PER SLIDING SCALE. PATIENT DENIES S/S OF HYPER/HYPOGLYCEMIA AT THIS TIME. BED LOCKED AND IN LOWEST POSITION, CALL LIGHT IN REACH. WILL ENDORSE TO DAY NURSE TO CONTINUE WITH PLAN OF CARE.
[2016-06-01 07:13] LABS: CALCIUM, SERUM 8.4 mg/dL (8.5-10.1); CREATININE 1.2 mg/dL (0.6-1.3); PHOSPHORUS 3.6 mg/dL (2.5-4.9); POTASSIUM 4.3 mmol/L (3.5-5.1)
--- NOTE | 2016-06-01 07:30 | NUR ---
MS/RN Patient received Patient received from health nurse. Wound vac in place, with total of 100ml output in canister. Dressing dry and intact. Denies pain or discomfort. Call light within reach, will continue to monitor and ensure safety.
[2016-06-01 08:00] VITALS: BP 158/74
[2016-06-01] MEDS: MULTIVITAMINS W-MINERALS 1 TAB TABLET PO SCH (08:08)
[2016-06-01] MEDS: ASCORBIC ACID 500 MG TABLET PO SCH (08:08)
[2016-06-01] MEDS: ATORVASTATIN 40 MG TABLET PO SCH (08:08)
[2016-06-01] MEDS: QUETIAPINE FUMARATE 25 MG TABLET PO SCH ×2 (08:08→16:50)
[2016-06-01] MEDS: FUROSEMIDE 40 MG TABLET PO SCH (08:08)
[2016-06-01] MEDS: DILTIAZEM HCL CD 240 MG PO SCH (08:09)
[2016-06-01] MEDS: METOPROLOL SUCCINATE 25 MG TAB.SR.24H PO SCH (08:09)
[2016-06-01] MEDS: CARVEDILOL 12.5 MG TABLET PO SCH (08:09)
[2016-06-01] MEDS: DAKINS QUARTER STRENGTH (0.125%) 480 ML BOTTLE TOP SCH (08:10)
[2016-06-01] MEDS: NEOMY SULF/BACITRAC ZN/POLY 15 GM TUBE TP SCH (08:10)
[2016-06-01] MEDS: Z GUARD REMEDY 2 OZ OINT TP SCH ×2 (08:10→17:00)
[2016-06-01] MEDS: LISINOPRIL (5MG) 5 MG TABLET PO SCH (08:10)
--- NOTE | 2016-06-01 08:49 | NUR ---
MS/RN Medications Morning medications administered as ordered.
--- NOTE | 2016-06-01 09:26 | NUR ---
WOUND CARE CONSULT: PT SEEN FOR RT POSTERIOR THIGH SKIN TEAR. RECOMMENDATIONS MADE AND DISCUSSED WITH NURSING STAFF. PT HAS [employer]CI VAC TO RT FOOT AT 125mmHg CONTINUOUS SETTING. SMALL AMOUNT OF DARK RED DRAINAGE IN CANISTER. PT HAS BEEN NON COMPLIANT PER NURSING STAFF AND TRANSFERS TO WHEELCHAIR FREQUENTLY. WILL SEE PRN. WIGGINS IN AGREEMENT WITH PLAN OF CARE. Addendum: 06/01/16 at 0930 by LU LUZ WNDNU Amended: Links added.
--- NOTE | 2016-06-01 12:50 | NUR ---
MS/RN Blood sugar Blood sugar 248, per sliding scale six units regular insulin administered.
--- NOTE | 2016-06-01 14:00 | NUR ---
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
--- NOTE | 2016-06-01 14:15 | NUR ---
MS/RN Sami Jaimes PHOTOGRAPHIC PLATEMAKER, [facility].
[2016-06-01] MEDS ORDERED: RXVAN XX (14:22)
[2016-06-01] MEDS ORDERED: CEFT1FRO2 IV (14:22)
[2016-06-01] MEDS ORDERED: LEVO500T15 PO (14:22)
[2016-06-01] MEDS: HYDROCODONE/APAP 10/325MG 1 EA TABLET PO PRN (16:09)
--- NOTE | 2016-06-01 16:37 | NUR ---
d/c back to SNF with right foot wound vac @ 125 mmhg contineous with dressing changes every MWF. Faxed clinicals and wound vac order to [facility] [phone]. Patient is aware and agreed with d/c plan of care. Ambulance on will call, nurse to call for report Addendum: 06/01/16 at 1638 by GERARD SILVA RN Amended: Links added.
[2016-06-01] MEDS: LEVOFLOXACIN (500MG) 500 MG TABLET PO SCH (16:50)
--- NOTE | 2016-06-01 18:10 | NUR ---
MS/RN End note Per case resource manager, waiting for facility to confirm that the wound vac has been delivered. Transport already on will call. Exit care completed and printed, just needs to be signed by patient and copied. Medical record printed. New midline inserted into right upper arm. Will endorse to night stocker.
[2016-06-01] MEDS: CEFTRIAXONE 1 G in IV D5W 50 ML IV SCH (19:32)
[2016-06-01 20:00] VITALS: BP 128/92
[2016-06-01] MEDS: VANCOMYCIN 1.5 GM in IV D5W 500 ML IV SCH (20:49)
--- NOTE | 2016-06-01 21:10 | NUR ---
ENEDINA SLATER NOTIFIED DEHYDRATING PRESS OPERATOR VAC IS DELIVERED, BED IS AVAILABLE. PATIENT WILL BE DISCHARGED TONIGHT. PROVIDED EDUCATION TO PATIENT REGARDING MEDICATION, WOUND CARE, WOUND VAC, SMOKING CESSATION. PATIENT SIGNED DISCHARGE PAPER. GIVEN REPORT TO VIN WALL OF [facility] SL[facility]. AMBULANCE WILL ARRIVE AT 11PM.
--- NOTE | 2016-06-01 21:23 | NUR ---
PATIENT UP IN WHEELCHAIR, ALERT AND ORIENTED X4, CALM, NO SOB, NO RESPIRATORY DISTRESS, 02 SAT AT ROOM AIR 100%, DENIES ANY PAIN AT THIS TIME. MIDLINE TO RIGHT UPPER ARM IS PATENT AND INTACT. RIGHT FOOT WOUND DRESSING IS INTACT, WOUND VAC AT 125 MMHG ON CONTINUOUS SETTING IS WORKING. PATIENT ABLE TO TRANSFER SELF FROM BED TO CHAIR. KEPT SAFE AND COMFORTABLE, CALL LIGHT WITHIN REACH.
[2016-06-01] MEDS: *INSULIN REGULAR(HUMULIN R)HUM 100 UNIT/ML VIAL SQ PRN (22:04)
[2016-06-01 23:15] VITALS: BP 136/79
--- NOTE | 2016-06-01 23:16 | NUR ---
PATIENT PICKED UP BY [facility] [employer] VIA [facility] FOR DISCHARGE TO [facility]. ALERT AND ORIENTED X4, CALM, NO SOB, NO RESPIRATORY DISTRESS, TOLERATING ROOM AIR, 02 SAT 98%, NO COMPLAIN OF PAIN, GIVEN ROCEPHIN IVP AND VANCOMYCIN SCHEDULED, ALL PM MEDICATIONS GIVEN. WOUND VAC DISCONNECTED WITH OUTPUT OF 150 CC SEROSANGUINEOUS, REMOVED RIGHT FOREARM PERIPHERAL LINE AND KEPT MIDLINE TO RIGHT UPPER ARM. NOTIFIED [facility] RN OF MIDLINE. INVENTORY DONE, WHEELCHAIR TURNED OVER TO PATIENTS WELL PERSONAL BELONGINGS. PHOTOS OF RIGHT FOOT TAKEN NOT THE RIGHT GUZMAN AREA SECONDARY TO DRESSING AND WOUND VAC.
== END 2016-06-01 23:12 | DRG 628 ==
LOC: WOUND2 11:10
PROVIDERS: ADMIT Internal Medicine; ATTEND Internal Medicine
PROC: 0KBV0ZZ Excision of Right Foot Muscle, Open Approach (ICD-10-PCS; principal; 2016-05-24)
PROC: 0KCV0ZZ Extirpation of Matter from Right Foot Muscle, Open Approach (ICD-10-PCS; 2016-05-24)
PROC: 0KBV0ZZ Excision of Right Foot Muscle, Open Approach (ICD-10-PCS; 2016-05-27)
PROC: 0QBN0ZZ Excision of Right Metatarsal, Open Approach (ICD-10-PCS; 2016-05-30)
DX: E11.621 Type 2 diabetes mellitus with foot ulcer (principal); E43 Unspecified severe protein-calorie malnutrition; M86.8X6 Other osteomyelitis, lower leg; L03.115 Cellulitis of right lower limb; D68.59 Other primary thrombophilia; L97.809 Non-pressure chronic ulcer of other part of unspecified lower leg with unspecified severity; E11.51 Type 2 diabetes mellitus with diabetic peripheral angiopathy without gangrene; N17.0 Acute kidney failure with tubular necrosis; E11.69 Type 2 diabetes mellitus with other specified complication; E11.42 Type 2 diabetes mellitus with diabetic polyneuropathy; E66.01 Morbid (severe) obesity due to excess calories; E78.5 Hyperlipidemia, unspecified; Z95.5 Presence of coronary angioplasty implant and graft; F17.210 Nicotine dependence, cigarettes, uncomplicated; Z89.612 Acquired absence of left leg above knee; I25.10 Atherosclerotic heart disease of native coronary artery without angina pectoris; N18.9 Chronic kidney disease, unspecified; I12.9 Hypertensive chronic kidney disease with stage 1 through stage 4 chronic kidney disease, or unspecified chronic kidney disease; E11.610 Type 2 diabetes mellitus with diabetic neuropathic arthropathy; E03.9 Hypothyroidism, unspecified; D64.9 Anemia, unspecified; I25.2 Old myocardial infarction; E11.22 Type 2 diabetes mellitus with diabetic chronic kidney disease; E11.622 Type 2 diabetes mellitus with other skin ulcer; L97.519 Non-pressure chronic ulcer of other part of right foot with unspecified severity; B95.2 Enterococcus as the cause of diseases classified elsewhere; B96.5 Pseudomonas (aeruginosa) (mallei) (pseudomallei) as the cause of diseases classified elsewhere; S90.851A Superficial foreign body, right foot, initial encounter; Z79.4 Long term (current) use of insulin; G47.33 Obstructive sleep apnea (adult) (pediatric); Z86.74 Personal history of sudden cardiac arrest; Z91.19 Patient's noncompliance with other medical treatment and regimen; M14.679 Charcot's joint, unspecified ankle and foot
CPT/HCPCS: 36415; 36569; 71010-TC; 80048-TC; 80202-TC; 82962-TC; 83735-TC; 84100-TC; 85025-TC; 85610-TC; 85730-TC; 87040-TC; 87070-TC; 87081-TC; 87186-TC; 88300-TC; 93925-TC; A6209; A6253; A6402; A6403; J0696; J1815; J2001; J2704; J3370; J3490; J7050; J7060; Z7610

== ENCOUNTER 2016-06-20 10:50 | Outpatient (CLI) | payer MEDICARE, BC ==
[~2016-06-20 10:50] MED LIST changes: +CEFT1FRO2 IV; +LEVO500T15 PO; +RXVAN XX
== END 2016-06-20 23:59 | disposition home or self-care (01) ==
LOC: WOU 10:50
PROVIDERS: ATTEND Podiatrist Foot & Ankle Surgery
DX: E11.621 Type 2 diabetes mellitus with foot ulcer (principal); E11.622 Type 2 diabetes mellitus with other skin ulcer; L97.419 Non-pressure chronic ulcer of right heel and midfoot with unspecified severity; L97.811 Non-pressure chronic ulcer of other part of right lower leg limited to breakdown of skin; L97.509 Non-pressure chronic ulcer of other part of unspecified foot with unspecified severity; E11.42 Type 2 diabetes mellitus with diabetic polyneuropathy; I25.10 Atherosclerotic heart disease of native coronary artery without angina pectoris; F17.210 Nicotine dependence, cigarettes, uncomplicated; Z95.5 Presence of coronary angioplasty implant and graft; E05.00 Thyrotoxicosis with diffuse goiter without thyrotoxic crisis or storm; Z89.512 Acquired absence of left leg below knee; R60.0 Localized edema; E11.65 Type 2 diabetes mellitus with hyperglycemia; Z79.4 Long term (current) use of insulin; Z79.84 Long term (current) use of oral hypoglycemic drugs
CPT/HCPCS: A6197; A6253; A6402; G0463

== ENCOUNTER 2016-06-22 05:50 | Inpatient (IN) | payer MEDICARE, BC ==
[~2016-06-22] VITALS: Ht 160 cm; Wt 124.7 kg
[2016-06-22] VITALS (34 sets, daily range): BP systolic 61–145; BP diastolic 21–84
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
--- NOTE | 2016-06-22 05:53 | NUR ---
IV AC ON LEFT AC 16. BP: 134/74 HR 79
--- NOTE | 2016-06-22 05:53 | NUR ---
NARCAN 2MG IVP GIVEN PER DR. FOUNTAIN ORDERS.
[2016-06-22] MEDS ORDERED: PROPOFOL 100 ML IV ONE ×2 (05:55→06:00)
[2016-06-22] MEDS ORDERED: IV SET PRIMARY PUMP SET 1 EA INFUS.SET MC ONE ×4 (05:55→20:51)
--- NOTE | 2016-06-22 05:56 | NUR ---
PT INTUBATED; ET 8, 26 AT THE LIP.
--- NOTE | 2016-06-22 05:59 | NUR ---
VENT SETTINGS: AC 20, TV 650 FIO02 100% AND PEEP 5
[2016-06-22] MEDS ORDERED: NALOXONE HCL 0.4 MG/ML AMPUL IV ONE (06:00)
[2016-06-22] MEDS ORDERED: ROCURONIUM BROMIDE 100 MG/10 ML VIAL IV ONE (06:00)
[2016-06-22] MEDS ORDERED: ETOMIDATE 2 MG/ML VIAL IV ONE (06:00)
[2016-06-22] MEDS ORDERED: IV NS 0.9% 1,000 ML BAG IV ONE (06:00)
[2016-06-22] MEDS ORDERED: NALOXONE PREFILLED SYRINGE 2 MG/2 ML SYRINGE ONE (06:03)
--- NOTE | 2016-06-22 06:05 | NUR ---
PER DR. FOUNTAIN ORDERS, IV PROPOFOL PER PROTOCOL, TRANFUSING AT 20MCG/KG/MIN; 17.28MLS/HR.
--- NOTE | 2016-06-22 06:06 | NUR ---
NG-TUBE PLACED AT 80 CM AT LIP. GRASTRIC CONTENT NOTED.
--- NOTE | 2016-06-22 06:09 | NUR ---
16 FR ROTH CATH INSERTED PER MD ORDER. URINE COLLECTED. CALLED LAB FOR PERSONAL BANKING OFFICER.
--- NOTE | 2016-06-22 06:11 | NUR ---
XRAY AT BEDSIDE
[2016-06-22] MEDS ORDERED: IV SET PRIMARY 1 EA INFUS.SET MC ONE (06:22)
[2016-06-22] MEDS ORDERED: IV NS 0.9% 1,000 ML ONE (06:22)
--- NOTE | 2016-06-22 06:24 | NUR ---
PT TO CT.
--- NOTE | 2016-06-22 06:38 | NUR ---
PT RETURNED FROM CT.
[2016-06-22 06:43] LABS: INR 1.16 (0.87-1.13); PROTHROMBIN TIME 12.5 SECS (9.5-12.7)
[2016-06-22 06:45] LABS: BASOPHILS % (AUTO) 0.2 % (0.0-2.0); EOSINOPHILS % (AUTO) 0.1 % (0.0-6.0); HEMATOCRIT 22 % (39-51); LYMPHOCYTES # (AUTO) 0.5 /CMM (0.8-4.8); LYMPHOCYTES % (AUTO) 8.1 % (20.0-44.0); MEAN CORPUSCULAR HEMOGLOBIN 27 PG (26.0-33.0); MEAN CORPUSCULAR HGB CONC 32 g/dl (31.0-36.0); MEAN CORPUSCULAR VOLUME 85 fL (80-96); MONOCYTES # (AUTO) 0.3 /CMM (0.1-1.30); MONOCYTES % (AUTO) 4.5 % (2.0-12.0); NEUTROPHILS # (AUTO) 5.9 /CMM (1.8-8.9); NEUTROPHILS % (AUTO) 87.1 % (43.0-81.0); PLATELET COUNT (AUTO) 229 /CMM (150-450); RDW COEFFICIENT OF VARIATION 16.7 (11.5-15.0); RED BLOOD CELL COUNT(AUTO) 2.56 MIL/uL (4.5-6.0); WHITE BLOOD COUNT (AUTO) 6.7 K/uL (4.3-11.0)
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
[2016-06-22 06:58] LABS: ALBUMIN 3.1 g/dL (3.4-5.0); BILIRUBIN,DIRECT 0.2 mg/dL (0.0-0.2); BILIRUBIN,TOTAL 0.5 mg/dL (0.2-1.0); CALCIUM, SERUM 7.9 mg/dL (8.5-10.1); CREATININE 1.9 mg/dL (0.6-1.3); POTASSIUM 4.4 mmol/L (3.5-5.1); TOTAL PROTEIN, SERUM 7.3 g/dL (6.4-8.2)
[2016-06-22 06:59] LABS: THYROID STIMULATING HORMONE 5.561 uIU/mL (0.358-3.74)
[2016-06-22] MEDS ORDERED: FUROSEMIDE 100 MG/10 ML VIAL ONE (07:15)
--- NOTE | 2016-06-22 07:15 | NUR ---
DR. HERNANDEZ AT BEDSIDE FOR OCCULT BLOOD. NOTED NEGATIVE PER DR. HERNANDEZ.
--- NOTE | 2016-06-22 07:20 | NUR ---
[facility] EPIC paged Dr. Adkins.
--- NOTE | 2016-06-22 07:23 | NUR ---
REPORT GIVEN TO VIN GRAJEDA FOR CRYSTAL.
[2016-06-22] MEDS ORDERED: FUROSEMIDE 40 MG/4 ML VIAL IV ONE (07:30)
--- NOTE | 2016-06-22 07:40 | NUR ---
REPORT GIVEN TO RN JOB FOR ICU BED 255
[2016-06-22] MEDS ORDERED: PANT40TA4 PO (07:47)
[2016-06-22] MEDS ORDERED: ACET-2605 PO (07:47)
[2016-06-22] MEDS ORDERED: AMIN30LI4 PO (07:47)
[2016-06-22] MEDS ORDERED: BLOO-697 IN (07:47)
[2016-06-22] MEDS ORDERED: SUCR1ORA PO (07:47)
[2016-06-22] MEDS ORDERED: ZINC220C8 PO (07:47)
[2016-06-22] MEDS ORDERED: CEFT1FRO2 IV (07:47)
[2016-06-22] MEDS ORDERED: NA P133E RC (07:47)
[2016-06-22] MEDS ORDERED: CALC-108 PO (07:47)
[2016-06-22] MEDS ORDERED: LEVO500T15 PO (07:47)
[2016-06-22] MEDS ORDERED: MAGN400O6 PO (07:47)
[2016-06-22] MEDS ORDERED: BISA10SU8 RC (07:47)
[2016-06-22] MEDS ORDERED: ACET-868 PO (07:47)
[2016-06-22] MEDS ORDERED: MULT-659 PO (07:47)
[2016-06-22] MEDS ORDERED: INSU100V3 SQ ×2 (07:47)
[2016-06-22] MEDS ORDERED: DOCU-270 PO (07:47)
[2016-06-22] MEDS ORDERED: VANC1VIA2 IV (07:47)
--- NOTE | 2016-06-22 07:48 | NUR ---
ADJUSTED NGTUBE TO [address]IP PER [address] RAY ORDERS.
[2016-06-22 07:50] LABS: ABG BASE EXCESS -5.6 mmol/L; ABG OXYGEN SATURATION 97.8 % (92.0-98.5); ABG PCO2 36.6 mmHg (35.0-45.0); ABG PH 7.345 (7.350-7.450); ABG TOTAL HEMOGLOBIN 8.5 G/dL (13.5-18.0); SITE, ABG Right Brachial
[2016-06-22 07:51] LABS: AaDO2 562.4 mmHg; COHb 1.2 % (0.5-1.5); MetHb 0.3 % (0.0-1.5); O2Hb 96.3 % (94.0-97.0); VENT MODE, BG AC 20 650 100% +5
[2016-06-22] MEDS ORDERED: IV NS 0.9% 250 ML IV ONE (07:51)
[2016-06-22] MEDS ORDERED: BLOOD IV SET 1 EA INFUS.SET MC ONE (07:51)
--- NOTE | 2016-06-22 08:12 | NUR ---
PT SAFELY TRANSFERRED TO ICU WITH ER ETCH AND RT PER PROTOCOL.
--- NOTE | 2016-06-22 09:00 | NUR ---
CRITICAL LAB TROPONIN 3.[address] REYNA. HE STATES HE WILL COME UP AND SEE THE PT NO ORDERS AT THIS TIME. DR. MERCER ON THE UNIT WELL AWARE OF TROP
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
[2016-06-22 09:10] LABS: TROPONIN I 3.273 ng/mL (0.00-0.056)
[2016-06-22] MEDS ORDERED: FEE EMEERGENCY 1 MIN EA MC ONE (09:20)
[2016-06-22] MEDS ORDERED: NORMAL SALINE FLUSH 10 ML SYR IV PRN (09:30)
[2016-06-22] MEDS ORDERED: PROPOFOL 100 ML IV PRN (09:30)
[2016-06-22] MEDS ORDERED: NOREPINEPHRINE 8 MG in IV D5W 500 ML IV PRN (09:30)
[2016-06-22] MEDS ORDERED: ONDANSETRON HCL/PF 4 MG/2 ML VIAL IVP PRN (09:30)
[2016-06-22] MEDS ORDERED: ACETAMINOPHEN 325 MG TABLET PO PRN (09:30)
--- NOTE | 2016-06-22 09:34 | NUR ---
DR. HAAS NOTIFIED OF PT ADMISSION TO UNIT. Addendum: 06/22/16 at 1041 by CARMEN VU RN DISCUSSED CASE WITH DR. HAAS SHE ORDERS TO GIVE 1 UNIT OF PRBC FOR THE HGB OF 7.0. ONLY 1 UNIT, NOT 2 DUE TO CHF.
[2016-06-22] MEDS: PROPOFOL 100 ML IV PRN ×4 (09:35→21:56)
[2016-06-22] MEDS ORDERED: Z GUARD REMEDY 2 OZ OINT TP PRN (10:30)
[2016-06-22] MEDS ORDERED: HYDROGEL DRESSING 90 GM TUBE TP PRN (10:30)
[2016-06-22] MEDS ORDERED: NOREPINEPHRINE 16 MG in IV D5W 500 ML IV PRN (11:00)
[2016-06-22] MEDS: ALBUTEROL FS 2.5 MG/3 ML VIAL.NEB NEB SCH ×3 (11:20→19:59)
[2016-06-22 11:21] LABS: IRON, SERUM 62 ug/dl (50-175); TOTAL IRON BINDING CAPACITY 246 ug/dl (250-450)
--- NOTE | 2016-06-22 11:29 | NUR ---
CRITICAL LAB OF TROPONIN 2.723, DR. REYNA AWARE OF TROPONIN LEVEL OF 3.273 THIS IS THE SECOND TROPONIN TRENDING DOWN. ORDERS BY DR. REYNA TO RESTART THE PT'S ANTICOAGULANTS ELIQUIS 2.5 AND NEW ORDERS FOR LOVENOX ORDERED, NO HEPARIN DRIP.
[2016-06-22] MEDS: Z GUARD REMEDY 2 OZ OINT TP SCH (11:32)
[2016-06-22] MEDS: DAKINS QUARTER STRENGTH (0.125%) 480 ML BOTTLE TOP SCH (11:32)
[2016-06-22] MEDS: HYDROGEL DRESSING 90 GM TUBE TP SCH (11:32)
[2016-06-22 11:35] LABS: FERRITIN 421 ng/mL (8-388)
[2016-06-22] MEDS ORDERED: ENOXAPARIN SODIUM 80 MG/0.8 ML DISP.SYRIN SQ SCH (12:00)
[2016-06-22] MEDS: APIXABAN 2.5 MG TABLET PO SCH ×2 (12:52→17:13)
[2016-06-22] MEDS: ASPIRIN 81 MG TAB.CHEW PO SCH (12:52)
[2016-06-22] MEDS: SUCRALFATE 1 G/10 ML UDC PO SCH ×2 (12:53→17:14)
[2016-06-22] MEDS: FUROSEMIDE 100 MG/10 ML VIAL IV SCH ×3 (12:53→18:55)
[2016-06-22] MEDS ORDERED: PIPERACILLIN /TAZOBACTAM 4.5 G in IV D5W 50 ML IV SCH (13:00)
[2016-06-22] MEDS ORDERED: NORMAL SALINE FLUSH 10 ML SYR IV SCH (13:00)
[2016-06-22] MEDS: PIPERACILLIN /TAZOBACTAM 2.25 G in IV D5W 50 ML IV SCH ×2 (13:56→17:14)
--- NOTE | 2016-06-22 15:04 | NUR ---
LOW DOSE LEVOPHED STARTED AT 2MCG AND TITRATED UP TO 5MCG. AFTER BLOOD TRANSFUSION, PT TITRATED OFF PRESSORS AND BP IS STABLE. PT WAS ON LEVOPHED APPROXIMATELY FROM [id number].
--- NOTE | 2016-06-22 15:04 | NUR ---
PT TRANSFERRED TO BARIMATRIX BED.
[2016-06-22] MEDS ORDERED: SECONDARY IV SET 1 EA INFUS.SET MC ONE ×2 (16:59→18:26)
[2016-06-22] MEDS ORDERED: FUROSEMIDE 40 MG/4 ML VIAL IV SCH (17:00)
[2016-06-22] MEDS ORDERED: FEE PK DOSING 1 MIN EA MC ONE (17:11)
[2016-06-22] MEDS: DOCUSATE SODIUM 100 MG CAPSULE PO SCH (17:13)
[2016-06-22] MEDS ORDERED: VANCOMYCIN 1.5 GM in IV D5W 500 ML IV SCH (18:00)
[2016-06-22] MEDS: VANCOMYCIN 1.25 GM in IV D5W 500 ML IV SCH (18:30)
--- NOTE | 2016-06-22 20:00 | NUR ---
Received patient sedated on DIPRIVAN DRIP AT 35 mcg/kg/min and intubated to vent on ac mode. Dx: Respiratory Failure and NSTEMI .Hx HTN,CAD,STENT PLACEMENT,CHF,DM,CVA,LEFT AKA,CKD, and THYROID DYSFUNCTION,OBESITY& Right FOOT CELLULITIS. .SR per cardiac monitoring.HR 70'S. VS stable.Hemodynamically stable.No distress noted.OGT clamped and patent.FC with clear yellow urine. Right leg dressing C/D/I.Turned and repositioned.Maintained on AIDAN MAX 11 BED.With ongoing monitoring.
[2016-06-22] MEDS: ATORVASTATIN 40 MG TABLET PO SCH (21:40)
[2016-06-23] VITALS (36 sets, daily range): BP systolic 102–151; BP diastolic 49–74
[2016-06-23] MEDS ORDERED: SECONDARY IV SET 1 EA INFUS.SET MC ONE (00:13)
[2016-06-23] MEDS: PIPERACILLIN /TAZOBACTAM 2.25 G in IV D5W 50 ML IV SCH ×5 (00:18→23:56)
[2016-06-23] MEDS: SUCRALFATE 1 G/10 ML UDC PO SCH ×5 (00:19→23:57)
--- NOTE | 2016-06-23 00:30 | NUR ---
Patient remains sedated.no distress noted.VS stable.Due medications given.
[2016-06-23] MEDS: PROPOFOL 100 ML IV PRN ×9 (01:14→23:58)
[2016-06-23] MEDS: ALBUTEROL FS 2.5 MG/3 ML VIAL.NEB NEB SCH ×5 (01:28→19:39)
[2016-06-23 04:53] LABS: BASOPHILS % (AUTO) 0.3 % (0.0-2.0); EOSINOPHILS % (AUTO) 0.1 % (0.0-6.0); HEMATOCRIT 24 % (39-51); HEMOGLOBIN 7.8 g/dL (13.5-17.5); LYMPHOCYTES # (AUTO) 1.3 /CMM (0.8-4.8); LYMPHOCYTES % (AUTO) 18.5 % (20.0-44.0); MEAN CORPUSCULAR HEMOGLOBIN 27 PG (26.0-33.0); MEAN CORPUSCULAR HGB CONC 33 g/dl (31.0-36.0); MEAN CORPUSCULAR VOLUME 84 fL (80-96); MONOCYTES # (AUTO) 0.4 /CMM (0.1-1.30); MONOCYTES % (AUTO) 5.7 % (2.0-12.0); NEUTROPHILS # (AUTO) 5.4 /CMM (1.8-8.9); NEUTROPHILS % (AUTO) 75.4 % (43.0-81.0); PLATELET COUNT (AUTO) 241 /CMM (150-450); RED BLOOD CELL COUNT(AUTO) 2.83 MIL/uL (4.5-6.0); WHITE BLOOD COUNT (AUTO) 7.2 K/uL (4.3-11.0)
[2016-06-23 05:19] LABS: INR 1.1 (0.87-1.13); PROTHROMBIN TIME 11.8 SECS (9.5-12.7)
[2016-06-23 05:35] LABS: ALBUMIN 2.7 g/dL (3.4-5.0); BILIRUBIN,TOTAL 0.4 mg/dL (0.2-1.0); CALCIUM, SERUM 7.9 mg/dL (8.5-10.1); CREATININE 1.8 mg/dL (0.6-1.3); PHOSPHORUS 3.9 mg/dL (2.5-4.9); POTASSIUM 3.1 mmol/L (3.5-5.1); TOTAL PROTEIN, SERUM 6.6 g/dL (6.4-8.2)
--- NOTE | 2016-06-23 06:54 | NUR ---
Patient resting appears comfortable.Mildly sedated on Diprivan drip at 35 mcg/kg/min.SR/ST 110. No pain noted.Remained NPO.AM care done.Turned and repositioned.Troponin 2.674. here notified to result.No new orders received.Patient with large volume of urine output.9000 ml in 24 hrs. Will endorse to AM shift RN for continuity of care.
--- NOTE | 2016-06-23 07:05 | NUR ---
RN INITIAL NOTES RECEIVED PT INTUBATED AND SEDATED. ON [facility] VENT WITH FF SETTINGS: AC20. TV650, FI03 45%, PEEP +5. HOB ELEVATED. NO RESPIRATORY DISTRESS NOTED. NO SOB NOTED. NO SIGNS OF PAIN NOTED. OG PATENT AND INTACT. PT ON NPO. RA MIDLINE, KEVEN #18 AND LAC #[address] FLUSHED WITH NS. FC IN PLACE. NO HEMATURIA NOTED. BLE ELEVATED. WILL CONTINUE TO MONITOR. Addendum: 06/23/16 at 0849 by CALLUM CASTRO RN 0705 RECEIVED PT ON DIPRIVAN AT 35MCG/KG/MIN. WILL MONITOR
--- NOTE | 2016-06-23 08:00 | NUR ---
WOUND CARE CONSULT LATE ENTRY PATIENT SEE AND SKIN INTEGRITY ASSESSMENT DONE ON ADMISSION 06/22/16. PLEASE SEE DATA MANAGEMENT ENGINEER ASSESSMENT DOCUMENTED TODAY ALONG WITH ALL RECOMMENDATIONS. WILL DEFER TREATMENTS TO DR MARTIN AT THIS TIME. BARIMAX 2 BED WITH ETS AIR IN USE FOR SKIN MANAGEMENT. LEFT AKA WELL HEALED NOTED. RECOMMEND CONTINUE TURNING SCHED Q 2 HOURS, RIGHT HEEL FLOATING, USE OF Z GUARD FOR MOISTURE MANAGEMENT. PATIENT WITH CURRENT DELMIS AT 11. ALL DISCUSSED WITH NURSING AT THE BEDSIDE. CONTINUE ALL PRESSURE ULCER PREVENTION MEASURES PER CURRENT PLAN OF CARE. Addendum: 06/23/16 at 0803 by AMY HOWARD WNDNU Amended: Links added.
[2016-06-23] MEDS: ASPIRIN 81 MG TAB.CHEW PO SCH (08:23)
[2016-06-23] MEDS: CARVEDILOL 12.5 MG TABLET PO SCH (08:23)
[2016-06-23] MEDS: FUROSEMIDE 100 MG/10 ML VIAL IV SCH ×3 (08:23→15:31)
[2016-06-23] MEDS: POTASSIUM CHLORIDE 20 MEQ TAB.PRT.SR PO SCH ×5 (08:23→12:00)
[2016-06-23] MEDS: PANTOPRAZOLE 40 MG VIAL IV SCH (08:23)
[2016-06-23] MEDS: DOCUSATE SODIUM 100 MG CAPSULE PO SCH ×2 (08:23→16:23)
[2016-06-23] MEDS: LEVOTHYROXINE SODIUM 100 MCG TABLET PO SCH (08:23)
[2016-06-23] MEDS: CLOPIDOGREL BISULFATE 75 MG TABLET PO SCH (08:23)
[2016-06-23] MEDS: DILTIAZEM HCL CD 240 MG PO SCH (08:24)
[2016-06-23] MEDS: DAKINS QUARTER STRENGTH (0.125%) 480 ML BOTTLE TOP SCH (08:24)
[2016-06-23] MEDS: ZINC SULFATE 220 MG CAPSULE PO SCH (08:24)
[2016-06-23] MEDS: HYDROGEL DRESSING 90 GM TUBE TP SCH (08:24)
[2016-06-23] MEDS: Z GUARD REMEDY 2 OZ OINT TP SCH (08:24)
[2016-06-23] MEDS: APIXABAN 2.5 MG TABLET PO SCH ×2 (08:25→16:23)
[2016-06-23 09:10] LABS: ABG BASE EXCESS 3.4 mmol/L; ABG OXYGEN SATURATION 94.9 % (92.0-98.5); ABG PCO2 28.5 mmHg (35.0-45.0); ABG PH 7.568 (7.350-7.450); ABG PO2 71.6 mmHg (75.0-100.0); AaDO2 216.8 mmHg; COHb 1.6 % (0.5-1.5); MetHb 1.3 % (0.0-1.5); O2Hb 92.1 % (94.0-97.0); PEEP,BG 5 cm H2O; SITE, ABG Right Radial; VT, ABG 650 mL
--- NOTE | 2016-06-23 09:30 | NUR ---
RN NOTES ABG RESULT RELAYED TO DR. MERCER. VENT SETTINGS, TIDAL VOLUME CHANGED TO 600. NO RESPIRATORY DISTRESS NOTED. NO SOB NOTED. KEPT HOB ELEVATED. WILL CONTINUE TO MONITOR.
--- NOTE | 2016-06-23 09:45 | NUR ---
RN NOTES DR. HAAS CALLED AND UPDATE GIVEN. AWARE OF PT'S LAB VALUES: WBC 7.2, HGB 7.8, HCT 24. GIVEN 1 UNIT OF PRBC YESTERDAY. PLATELET 241, SOIDUM 122, POTASSIUM 3.1, HAS ORDER FOR REPLACEMENT. BUN 45, CREA 1.8. ALSO AWARE OF CXR RESULT. NOTIFIED PT STILL INTUBATED AND SEDATED. TOLERATING VENT WELL. VENT SETTINGS ADJUSTED AFTER ABG. NO ORDER MADE. WILL CONTINUE TO MONITOR.
--- NOTE | 2016-06-23 10:15 | NUR ---
RN NOTES VACATION SEDATION DONE. PT ABLE TO OPEN EYES AND FOLLOW SIMPLE COMMANDS. PT REORIENTATION DONE. PT DENIES ANY PAIN. NO RESPIRATOR DISTRESS NOTED. NO SOB NOTED. KEPT HOB ELEVATED. DIPRIVAN RESTARTED. WILL CONTINUE TO MONITOR.
[2016-06-23] MEDS ORDERED: IV SET PRIMARY 1 EA INFUS.SET MC ONE (11:21)
--- NOTE | 2016-06-23 12:00 | NUR ---
RN NOTES SEEN AND EXAMINED BY DR. SIMENTAL. ASSESSED RIGHT FOOT WOUND AND DID DRESSING CHANGE. KEPT RIGHT FOOT OFFLOADED. WILL CONTINUE TO MONITOR. NO ORDER MADE AT THIS TIME.
[2016-06-23] MEDS: MUPIROCIN OINT 2% 22 GM TUBE TP SCH (15:35)
[2016-06-23] MEDS ORDERED: IV NS 0.9% 250 ML IV ONE (16:39)
--- NOTE | 2016-06-23 17:02 | NUR ---
RT NOTE: PATIENT RECEIVED ORALLY INTUBATED WITH 8.0 ETT SECURED AT 28 CM MID LIP LINE ON [facility] VENT. MOVED ETT FROM LEFT TO RIGHT VIA ANCHORFAST PER POLICY. ALARMS VERIFIED AND AUDIBLE. SUCTIONED AND LAVAGED MODERATE AMOUNT OF THICK/ BLOOD TINGED SECRETIONS. VENT PLUGGED INTO RED OUTLET. AMBU BAG AT [facility].
[2016-06-23] MEDS: VANCOMYCIN 1.25 GM in IV D5W 500 ML IV SCH (17:45)
--- NOTE | 2016-06-23 18:36 | NUR ---
RN CLOSING NOTES PT REMAINS INTUBATED. TOLERATING MECH VENT WELL. NO RESPIRATORY DISTRESS NOTED. NO SIGNS OF PAIN NOTED. IV LINES IN PLACE. REMAINS ON DIPRIVAN. PT STILL NPO. OG IN PLACE. FC IN PLACE. ADEQUATE OUTPUT NOTED. TC PROVIDED ORDERED. KEPT CLEAN AND DRY. REPOSITIONED Q2. KEPT RIGHT FOOT ELEVATED. KEPT COMFORTABLE. WILL ENDORSE FOR CONTINUITY OF CARE.
--- NOTE | 2016-06-23 20:00 | NUR ---
PRINTED CIRCUIT BOARD PCB DESIGNER DF RECEIVED PT TO ROOM#255 PT INTUBATED TOLERATING CURRENT AC VENT SETTINGS. SEDATED ON DIPRIVAN @40MCG(INCREASED TO 40 MCG FOR SEDATION)RESPONSIVE TO TACTILE STIMULATION.BILATERAL SOFT WRIST RESTRAINTS IN PLACE FOR PT SAFETY PT SELF EXTUBATION RISK. PT VSS.NO DISTRESS STATUS PT STATUS STABLE(SEE ASSESSMENT FLOWSHEETS FOR INFO)PT WITH EXTENSIVE WOUND TO RIGHT FOOT COVERED WITH DRESSING C/D/I(PT FOLLOWED BY PODIATRY/WOUND CARE TEAM)WILL MONITOR FOR CHANGES.
[2016-06-23] MEDS: ATORVASTATIN 40 MG TABLET PO SCH (21:35)
[2016-06-23] MEDS ORDERED: IV SET PRIMARY PUMP SET 1 EA INFUS.SET MC ONE (23:46)
[2016-06-24] VITALS (29 sets, daily range): BP systolic 102–151; BP diastolic 42–71
[2016-06-24] MEDS: ALBUTEROL FS 2.5 MG/3 ML VIAL.NEB NEB SCH ×4 (01:05→19:29)
[2016-06-24] MEDS: MUPIROCIN OINT 2% 22 GM TUBE TP SCH ×2 (03:53→15:08)
--- NOTE | 2016-06-24 05:10 | NUR ---
CENTER REP DF DURING AM CARE OBSERVED LACERATION TO LEFT KNEE WITH VANESSA IN PLACE OPEN TO AIR. OBSERVED ABRASION/LACERATION TO RIGHT ELBOW, APPEARS PT WAS S/P FALL PRIOR TO ADMISSION.PHOTO TAKEN OF RIGHT ELBOW/WOUND RIGHT KNEE PHOTO IN CHART.DOCUMENTED ABOVE FINDINGS. WOUND CARE PER ORDERS TO RIGHT FOOT HYDROGEL/DANKINS/BACTROBAN WITH ABD PAD COVERED WITH KERLIX. VSS.NAD NOTED.
[2016-06-24 05:28] LABS: BASOPHILS % (AUTO) 0.3 % (0.0-2.0); EOSINOPHILS # (AUTO) 0.1 /CMM (0.0-0.7); EOSINOPHILS % (AUTO) 1.5 % (0.0-6.0); HEMATOCRIT 26 % (39-51); HEMOGLOBIN 8.5 g/dL (13.5-17.5); LYMPHOCYTES % (AUTO) 27.9 % (20.0-44.0); MEAN CORPUSCULAR HEMOGLOBIN 28 PG (26.0-33.0); MEAN CORPUSCULAR HGB CONC 33 g/dl (31.0-36.0); MEAN CORPUSCULAR VOLUME 83 fL (80-96); MONOCYTES # (AUTO) 0.6 /CMM (0.1-1.30); MONOCYTES % (AUTO) 8.9 % (2.0-12.0); NEUTROPHILS # (AUTO) 4.3 /CMM (1.8-8.9); NEUTROPHILS % (AUTO) 61.4 % (43.0-81.0); PLATELET COUNT (AUTO) 246 /CMM (150-450); RED BLOOD CELL COUNT(AUTO) 3.07 MIL/uL (4.5-6.0); WHITE BLOOD COUNT (AUTO) 7.1 K/uL (4.3-11.0)
[2016-06-24] MEDS: SUCRALFATE 1 G/10 ML UDC PO SCH ×4 (05:29→23:22)
[2016-06-24] MEDS: PIPERACILLIN /TAZOBACTAM 2.25 G in IV D5W 50 ML IV SCH ×4 (05:29→23:22)
[2016-06-24] MEDS: PROPOFOL 100 ML IV PRN ×3 (05:30→10:16)
[2016-06-24 05:34] LABS: ALBUMIN 2.6 g/dL (3.4-5.0); BILIRUBIN,TOTAL 0.3 mg/dL (0.2-1.0); CALCIUM, SERUM 7.6 mg/dL (8.5-10.1); CREATININE 1.8 mg/dL (0.6-1.3); MAGNESIUM 1.8 mg/dL (1.8-2.4); PHOSPHORUS 4.4 mg/dL (2.5-4.9); POTASSIUM 3.3 mmol/L (3.5-5.1); TOTAL PROTEIN, SERUM 6.4 g/dL (6.4-8.2)
--- NOTE | 2016-06-24 07:05 | NUR ---
RN INITIAL NOTES RECEIVED PT INTUBATED AND SEDATED. ON [facility] VENT WITH FF SETTINGS: AC20. TV600, FI03 45%, PEEP +5. HOB ELEVATED. NO RESPIRATORY DISTRESS NOTED. NO SOB NOTED. NO SIGNS OF PAIN NOTED. ON DIPRIVAN AT 35MCG/KG/MIN. OG PATENT AND INTACT. PT ON NPO. RA MIDLINE, KEVEN #18 AND LAC #[address] FLUSHED WITH NS. FC IN PLACE. NO HEMATURIA NOTED. DRESSING ON RIGHT LEG AND RIGHT FOOT CLEAN AND DRY. RIGHT FOOT ELEVATED. WILL CONTINUE TO MONITOR.
[2016-06-24] MEDS: POTASSIUM CHLORIDE 20 MEQ TAB.PRT.SR PO SCH ×5 (08:03→11:55)
[2016-06-24] MEDS: APIXABAN 2.5 MG TABLET PO SCH ×2 (08:03→16:14)
[2016-06-24] MEDS: PANTOPRAZOLE 40 MG VIAL IV SCH (08:04)
[2016-06-24] MEDS: LEVOTHYROXINE SODIUM 100 MCG TABLET PO SCH (08:04)
[2016-06-24] MEDS: FUROSEMIDE 100 MG/10 ML VIAL IV SCH ×3 (08:04→16:14)
[2016-06-24] MEDS: CLOPIDOGREL BISULFATE 75 MG TABLET PO SCH (08:04)
[2016-06-24] MEDS: ASPIRIN 81 MG TAB.CHEW PO SCH (08:04)
[2016-06-24] MEDS: CARVEDILOL 12.5 MG TABLET PO SCH (08:04)
[2016-06-24] MEDS: ZINC SULFATE 220 MG CAPSULE PO SCH (08:04)
[2016-06-24] MEDS: DOCUSATE SODIUM 100 MG CAPSULE PO SCH ×2 (08:04→16:14)
[2016-06-24] MEDS: DILTIAZEM HCL CD 240 MG PO SCH (08:04)
[2016-06-24] MEDS: DAKINS QUARTER STRENGTH (0.125%) 480 ML BOTTLE TOP SCH (08:05)
[2016-06-24] MEDS: HYDROGEL DRESSING 90 GM TUBE TP SCH (08:06)
[2016-06-24] MEDS: Z GUARD REMEDY 2 OZ OINT TP SCH (08:06)
--- NOTE | 2016-06-24 09:50 | NUR ---
RN NOTES SEEN AND EXAMINED BY DR MCCANN. AWARE OF LAB VALUES: HGB 8.5, HCT 26. NO SIGNS OF ACTIVE BLEEDING NOTED. SODIUM 146, POTASSIUM 3.3, REPLACEMENT ORDERED. PT REMAINS NPO. REMAINS SEDATED. FOR WEANING TRIALS. NO ORDER MADE AT THIS TIME.
--- NOTE | 2016-06-24 10:16 | NUR ---
RN NOTES DIPRIVAN ON HOLD. WILL START PT ON WEANING TRIALS. WILL CLOSELY MONITOR.
[2016-06-24 11:31] LABS: ABG OXYGEN SATURATION 95.2 % (92.0-98.5); ABG PCO2 34.4 mmHg (35.0-45.0); ABG PO2 78.7 mmHg (75.0-100.0); ABG TOTAL HEMOGLOBIN 9.4 G/dL (13.5-18.0); AaDO2 166.9 mmHg; COHb 0.4 % (0.5-1.5); MetHb 1.2 % (0.0-1.5); O2Hb 93.7 % (94.0-97.0); PEEP,BG 5 cm H2O; SITE, ABG Left Radial
--- NOTE | 2016-06-24 11:45 | NUR ---
RN NOTES ABG RESULT RELAYED TO DR. MERCER. PT TOLERATING SIMV MODE. PT EXTUBATED ORDERED. PT AWAKE, A/OX1. REORIENTATION DONE. NO RESPIRATORY DISTRESS NOTED. NO SOB NOTED. DENIES ANY PAIN. HOB ELEVATED. PLACED ON 02 AT 5LPM VIA NC. WILL CLOSELY MONITOR.
--- NOTE | 2016-06-24 11:45 | NUR ---
PT EXTUBATED PER MD ORDER. ZERO DISTRESS NOTED AT THIS TIME. PT ON N/C. B/S EQUAL ABLE TO CLEAR AIRWAY. NO STRIDOR NOTED
[2016-06-24] MEDS ORDERED: IV NS 0.9% 250 ML IV ONE (17:47)
[2016-06-24] MEDS: VANCOMYCIN 1.25 GM in IV D5W 500 ML IV SCH (17:52)
--- NOTE | 2016-06-24 18:23 | NUR ---
RN CLOSING NOTES PT REMAINS AWAKE, A/OX2-3. ON 02 AT 5LPM VIA NC. NO RESPIRATORY DISTRESS NOTED. NO SOB NOTED. DENIES ANY PAIN. IV LINES IN PLACE. FC IN PLACE. ADEQUATE OUTPUT NOTED. TX PROVIDED ON RIGHT LEG AND FOOT. DRESSING CLEAN AND DRY. KEPT OFFLOADED. KEPT CLEAN AND DRY. ASSISTED ON REPOSITIONING. CALL LIGHT WITHIN REACH. WILL ENDORSE FOR CONTINUITY OF CARE.
[2016-06-24] MEDS: ATORVASTATIN 40 MG TABLET PO SCH (21:50)
[2016-06-24] MEDS ORDERED: ZOLPIDEM TARTRATE 5 MG TABLET ONE (23:14)
[2016-06-24] MEDS ORDERED: ZOLPIDEM TARTRATE 5 MG TABLET PO ONE (23:30)
[2016-06-25] VITALS (22 sets, daily range): BP systolic 111–152; BP diastolic 42–109
[2016-06-25] MEDS: ALBUTEROL FS 2.5 MG/3 ML VIAL.NEB NEB SCH ×4 (01:30→20:13)
[2016-06-25] MEDS: MUPIROCIN OINT 2% 22 GM TUBE TP SCH ×2 (03:00→15:48)
[2016-06-25 05:28] LABS: BASOPHILS % (AUTO) 0.3 % (0.0-2.0); EOSINOPHILS # (AUTO) 0.4 /CMM (0.0-0.7); EOSINOPHILS % (AUTO) 3.8 % (0.0-6.0); HEMATOCRIT 30 % (39-51); HEMOGLOBIN 9.6 g/dL (13.5-17.5); LYMPHOCYTES # (AUTO) 1.4 /CMM (0.8-4.8); LYMPHOCYTES % (AUTO) 15.1 % (20.0-44.0); MEAN CORPUSCULAR HEMOGLOBIN 27 PG (26.0-33.0); MEAN CORPUSCULAR HGB CONC 32 g/dl (31.0-36.0); MEAN CORPUSCULAR VOLUME 85 fL (80-96); MONOCYTES # (AUTO) 0.7 /CMM (0.1-1.30); MONOCYTES % (AUTO) 7.7 % (2.0-12.0); NEUTROPHILS # (AUTO) 6.9 /CMM (1.8-8.9); NEUTROPHILS % (AUTO) 73.1 % (43.0-81.0); PLATELET COUNT (AUTO) 281 /CMM (150-450); RED BLOOD CELL COUNT(AUTO) 3.57 MIL/uL (4.5-6.0); WHITE BLOOD COUNT (AUTO) 9.4 K/uL (4.3-11.0)
[2016-06-25] MEDS: SUCRALFATE 1 G/10 ML UDC PO SCH ×4 (05:31→23:59)
[2016-06-25] MEDS: PIPERACILLIN /TAZOBACTAM 2.25 G in IV D5W 50 ML IV SCH ×4 (05:31→23:59)
[2016-06-25 05:40] LABS: CALCIUM, SERUM 7.9 mg/dL (8.5-10.1); CREATININE 1.6 mg/dL (0.6-1.3); POTASSIUM 3.5 mmol/L (3.5-5.1)
--- NOTE | 2016-06-25 08:00 | NUR ---
WIND ENERGY PROJECT MANAGER NOTE: RECEIVED PATIENT ALERT AND ORIENTED X3 ABLE TO MAKE NEEDS KNOWN. ON RA TOLERATING WELL NO DISTRESS NOTED. SR ON TELE MONITOR. KEVEN MIDLINE PATENT AND INTACT. DRESSING CLEAN DRY AND INTACT. ROTH DRAINING TO GRAVITY. RLE DRESSING CLEAN DRY AND INTACT. PATIENT TURNED AND REPOSITIONED AND RLE OFFLOADED. LEFT LEG NOTED WITH AKA OFFLOADED. SAFETY MEASURES OBSERVED. CALL LIGHT PLACED WITHIN REACH. ONGOING MONITORING
[2016-06-25] MEDS: CLOPIDOGREL BISULFATE 75 MG TABLET PO SCH (08:03)
[2016-06-25] MEDS: LEVOTHYROXINE SODIUM 100 MCG TABLET PO SCH (08:03)
[2016-06-25] MEDS: PANTOPRAZOLE 40 MG VIAL IV SCH (08:04)
[2016-06-25] MEDS: CARVEDILOL 12.5 MG TABLET PO SCH (08:04)
[2016-06-25] MEDS: DILTIAZEM HCL CD 240 MG PO SCH (08:04)
[2016-06-25] MEDS: DOCUSATE SODIUM 100 MG CAPSULE PO SCH ×2 (08:04→16:30)
[2016-06-25] MEDS: ASPIRIN 81 MG TAB.CHEW PO SCH (08:04)
[2016-06-25] MEDS: ZINC SULFATE 220 MG CAPSULE PO SCH (08:04)
[2016-06-25] MEDS: APIXABAN 2.5 MG TABLET PO SCH ×2 (08:05→16:59)
[2016-06-25] MEDS: HYDROGEL DRESSING 90 GM TUBE TP SCH (08:06)
[2016-06-25] MEDS: Z GUARD REMEDY 2 OZ OINT TP SCH (08:07)
[2016-06-25] MEDS: DAKINS QUARTER STRENGTH (0.125%) 480 ML BOTTLE TOP SCH (08:07)
[2016-06-25 09:24] LABS: TROPONIN I 1.618 ng/mL (0.00-0.056)
[2016-06-25 09:38] LABS: ALBUMIN 3.1 g/dL (3.4-5.0); BILIRUBIN,DIRECT 0.1 mg/dL (0.0-0.2); BILIRUBIN,TOTAL 0.4 mg/dL (0.2-1.0); TOTAL PROTEIN, SERUM 7.5 g/dL (6.4-8.2)
[2016-06-25] MEDS: FUROSEMIDE 100 MG/10 ML VIAL IV SCH ×3 (10:33→16:59)
[2016-06-25] MEDS: POTASSIUM CHLORIDE 20 MEQ TAB.PRT.SR PO SCH ×2 (10:33→10:34)
--- NOTE | 2016-06-25 11:53 | NUR ---
CAFE OR RESTAURANT MANAGER NOTE: DR. BECKER AT BEDSIDE. RECEIVED ORDER FOR CONSENT FOR DEBRIDEMENT OF RIGHT FOOT. CONSENT OBTAINED FROM PATIENT. RIGHT FOOT DEBRIDEMENT DONE AT BEDSIDE. MD APPLIED XEROFORM AND WRAPPED EXTREMITIES WITH KERLIX. PATIENT TOLERATED PROCEDURE WELL. NO DISTRESS NOTED. ONGOING MONITORING
[2016-06-25] MEDS ORDERED: GENTAMICIN 0.1% OINT 15 GM TUBE TP ONE (12:30)
[2016-06-25] MEDS: FLUCONAZOLE (100 MG) 100 MG TABLET PO SCH (16:59)
--- NOTE | 2016-06-25 17:20 | NUR ---
ROAD FREIGHT BRAKE COUPLER NOTE: CALL MADE TO GO NURSE WHITNEY FOR REPORT TO TRANSFER PATIENT TO TELE ROOM 103. PATIENT TRANSFERED TO TELE VIA [facility] BED, ACLS OBSERVED. NO DISTRESS NOTED UPON TRANSFER, WHITNEY RN AT BEDSIDE FOR CONTINUITY OF CARE.
--- NOTE | 2016-06-25 17:45 | NUR ---
RN NOTES RECEIVED PT FROM ICU TRANSFER VIA [employer] BED, AWAKE ALERT ORIENTEDX4 ABLE TO COMMUNICATE NEEDS. ON RA KOREY WELL, TELEBOX ATTACHED. VS TAKEN AND RECORDED. DENIES PAIN/DISCOMFORT AT THIS TIME. KEPT COMFORTABLE, ORIENTED PT TO UNIT AND CALL LIGHT USE, SAFETY MAINTAINED. CALL LIGHT WITHIN REACH, WILL CONT TO MONITOR
--- NOTE | 2016-06-25 17:56 | NUR ---
RN NOTES 1800 DOSE FOR LIYA HELD, JANEO TROUGH 22. PHARMACY CALLED.
[2016-06-25] MEDS ORDERED: VANCOMYCIN 1 GM in IV D5W 250 ML IV SCH (18:00)
--- NOTE | 2016-06-25 19:20 | NUR ---
RN INITIAL NOTE RECEIVED PT IN NO ACUTE DISTRESS IN BED. PT IS A/O X 4 AND ABLE TO MAKE NEEDS KNOWN. PT IS ON RA AND TOLERATING WELL WITH O2 SAT @ 98%. PT IS NOT C/O ANY SOB, DIFFICULTY BREATHING OR PAIN AT THIS TIME. PT IS ON TELE WITH SR ON THE MONITOR. PT HAS KEVEN MIDLINE THAT IS CLEAN DRY INTACT AND PATENT WITH SALINE @ TKO. BED IN LOW LOCK POSITION WITH RAILS UP X 2. CALL LIGHT WITHIN REACH AND ALL SAFETY MEASURE ENSURED AND CARRIED OUT. WILL CONTINUE TO MONITOR FOR ANY CHANGES IN CONDITION.
[2016-06-25] MEDS: ATORVASTATIN 40 MG TABLET PO SCH (21:20)
[2016-06-25] MEDS: BLOOD SUGAR DIAGNOSTIC 1 EACH STRIP VI SCH (21:22)
[2016-06-25] MEDS ORDERED: DEXTROSE 50%-WATER 50 ML DISP.SYRIN IV PRN (21:30)
[2016-06-25] MEDS ORDERED: *INSULIN REGULAR(HUMULIN R)HUM 100 UNIT/ML VIAL SQ PRN (21:30)
[2016-06-26] VITALS: BP 114/62
[2016-06-26] MEDS: ALBUTEROL FS 2.5 MG/3 ML VIAL.NEB NEB SCH ×4 (01:01→19:27)
[2016-06-26] MEDS: MUPIROCIN OINT 2% 22 GM TUBE TP SCH ×2 (03:16→15:20)
[2016-06-26 04:00] VITALS: BP 118/61
[2016-06-26] MEDS: PIPERACILLIN /TAZOBACTAM 2.25 G in IV D5W 50 ML IV SCH ×2 (05:06→11:53)
[2016-06-26] MEDS: SUCRALFATE 1 G/10 ML UDC PO SCH ×3 (05:06→17:23)
[2016-06-26] MEDS: BLOOD SUGAR DIAGNOSTIC 1 EACH STRIP VI SCH ×3 (06:26→17:25)
[2016-06-26] MEDS: INSULIN REGULAR, HUMAN 100 UNIT/ML 3 ML VIAL SQ PRN ×3 (06:27→17:24)
[2016-06-26] MEDS: LEVOTHYROXINE SODIUM 100 MCG TABLET PO SCH (06:28)
--- NOTE | 2016-06-26 06:41 | NUR ---
RN CLOSING NOTE PT REMAINS IN NO ACUTE DISTRESS IN BED. PT DID NOT HAVE ANY SIGNIFICANT CHANGE IN CONDITION DURING SHIFT. ALL NEEDS MET ALL ORDERS CARRIED OUT. WILL ENDORSE TO AM RN FOR CONTINUITY OF CARE.
[2016-06-26 06:48] LABS: BASOPHILS % (AUTO) 0.2 % (0.0-2.0); EOSINOPHILS # (AUTO) 0.4 /CMM (0.0-0.7); EOSINOPHILS % (AUTO) 4.3 % (0.0-6.0); HEMATOCRIT 29 % (39-51); HEMOGLOBIN 9.4 g/dL (13.5-17.5); LYMPHOCYTES # (AUTO) 1.7 /CMM (0.8-4.8); LYMPHOCYTES % (AUTO) 17.6 % (20.0-44.0); MEAN CORPUSCULAR HEMOGLOBIN 28 PG (26.0-33.0); MEAN CORPUSCULAR HGB CONC 32 g/dl (31.0-36.0); MEAN CORPUSCULAR VOLUME 85 fL (80-96); MONOCYTES # (AUTO) 0.6 /CMM (0.1-1.30); MONOCYTES % (AUTO) 6.3 % (2.0-12.0); NEUTROPHILS # (AUTO) 6.9 /CMM (1.8-8.9); NEUTROPHILS % (AUTO) 71.6 % (43.0-81.0); PLATELET COUNT (AUTO) 273 /CMM (150-450); RDW COEFFICIENT OF VARIATION 17.2 (11.5-15.0); RED BLOOD CELL COUNT(AUTO) 3.43 MIL/uL (4.5-6.0); WHITE BLOOD COUNT (AUTO) 9.6 K/uL (4.3-11.0)
[2016-06-26 07:00] LABS: ALBUMIN 2.8 g/dL (3.4-5.0); BILIRUBIN,TOTAL 0.3 mg/dL (0.2-1.0); CALCIUM, SERUM 7.5 mg/dL (8.5-10.1); CREATININE 1.6 mg/dL (0.6-1.3); MAGNESIUM 1.7 mg/dL (1.8-2.4); PHOSPHORUS 3.2 mg/dL (2.5-4.9); POTASSIUM 3.7 mmol/L (3.5-5.1); TOTAL PROTEIN, SERUM 7.1 g/dL (6.4-8.2)
--- NOTE | 2016-06-26 07:00 | NUR ---
RN INITIAL NOTES RECEIVED PT IN BED, AWAKE, ABLE TO MAKE NEEDS KNOWN, WITH PERIODS OF CONFUSION, PT IS ON RA, SATING WELL, NO S/S OF RESP. DISTRESS OR SOB NOTED AT THIS TIME, PT IS ON TELE MONITOR SHOWING SR IN 70'S, NO C/O OF DISCOMFORT OR CHEST PAIN AT THIS TIME. PT HAS F/C DRAINING WELL, PT IS NOTED WITH MULTIPLE SKIN ISSUES, PT HAS KEVEN MIDLINE, RUNNING TKO AT THIS TIME, C/D/I/PATENT, FLUSHING WELL, NO S/S OF INFECTION/ INFILTRATION NOTED AT THIS TIME, ALL SAFETY MEASURES IN PLACE AT ALL TIMES, CALL LIGHT WITHIN EASY REACH, WILL MONITOR PT CLOSELY FOR CHANGES
[2016-06-26 08:00] VITALS: BP 108/58
[2016-06-26] MEDS: CLOPIDOGREL BISULFATE 75 MG TABLET PO SCH (08:55)
[2016-06-26] MEDS: ZINC SULFATE 220 MG CAPSULE PO SCH (08:55)
[2016-06-26] MEDS: DOCUSATE SODIUM 100 MG CAPSULE PO SCH ×2 (08:56→17:23)
[2016-06-26] MEDS: CARVEDILOL 12.5 MG TABLET PO SCH (08:56)
[2016-06-26] MEDS: ASPIRIN 81 MG TAB.CHEW PO SCH (08:56)
[2016-06-26] MEDS: PANTOPRAZOLE 40 MG VIAL IV SCH (08:56)
[2016-06-26] MEDS: FLUCONAZOLE (100 MG) 100 MG TABLET PO SCH (08:56)
[2016-06-26] MEDS: DILTIAZEM HCL CD 240 MG PO SCH (08:57)
[2016-06-26] MEDS: HYDROGEL DRESSING 90 GM TUBE TP SCH (08:57)
[2016-06-26] MEDS: DAKINS QUARTER STRENGTH (0.125%) 480 ML BOTTLE TOP SCH (08:58)
[2016-06-26] MEDS ORDERED: DAKINS QUARTER STRENGTH (0.125%) 480 ML BOTTLE TOP SCH (09:00)
[2016-06-26] MEDS: APIXABAN 2.5 MG TABLET PO SCH ×2 (09:00→17:23)
[2016-06-26] MEDS: Z GUARD REMEDY 2 OZ OINT TP SCH (09:00)
[2016-06-26] MEDS ORDERED: FUROSEMIDE 80 MG TABLET PO SCH (10:00)
[2016-06-26] MEDS: POTASSIUM CHLORIDE 20 MEQ TAB.PRT.SR PO SCH ×2 (10:48→17:23)
[2016-06-26] MEDS ORDERED: SECONDARY IV SET 1 EA INFUS.SET MC ONE (11:22)
[2016-06-26] MEDS: Magnesium 1GM/D5W 100ML PREMIX PIGGYBACK IV SCH ×2 (11:53→13:34)
[2016-06-26 12:00] VITALS: BP 118/67
[2016-06-26] MEDS ORDERED: FUROSEMIDE 40 MG TABLET PO SCH ×2 (12:00)
[2016-06-26] MEDS: FUROSEMIDE 40 MG TABLET PO SCH ×2 (12:07→17:23)
[2016-06-26] MEDS ORDERED: GENTAMICIN 0.1% OINT 15 GM TUBE TP SCH (13:00)
--- NOTE | 2016-06-26 13:20 | NUR ---
RN NOTES PT RECEIVED ON BED, A/Ox3-4. WITH PERIODS OF CONFUSION , ON RA RESPIRATION EVEN AND UNLABORED, R UPPER ARM MIDLINE CDI, CONTINUE TO MONITOR .
--- NOTE | 2016-06-26 13:20 | NUR ---
RN NOTES REPORT GIVEN TO JOEL ROJAS
[2016-06-26 16:00] VITALS: BP 123/63
[2016-06-26] MEDS ORDERED: VANCOMYCIN 1 GM in IV D5W 250 ML IV SCH (16:00)
[2016-06-26] MEDS ORDERED: CEFE1PIG3 IV (18:21)
[2016-06-26] MEDS ORDERED: ATOR40TA PO (18:21)
[2016-06-26] MEDS ORDERED: ASPI81TA2 PO (18:21)
[2016-06-26] MEDS ORDERED: Potassium Chloride PO (18:21)
[2016-06-26] MEDS ORDERED: Fluconazole PO (18:21)
[2016-06-26] MEDS ORDERED: FURO40TA5 PO (18:21)
--- NOTE | 2016-06-26 18:40 | NUR ---
RN NOTES REPORT GIVEN TO MAYCOL BANUELOS AT [facility] FOR CONTINUITY OF CARE .
--- NOTE | 2016-06-26 18:58 | NUR ---
RN NOTES PT TRANSFERRED TO WITH ROTH AND R UPPER ARM MIDLINE , ALEKS BANUELOS NOTIFIED , PT LEFT THE FLOOR VIA STRETCHER ACCOMPANIED BY EMT PERSONAL TO HOSPITAL IN STABLE CONDITION .
--- NOTE | 2016-06-26 19:27 | NUR ---
PT NOT IN THE ROOM AT THIS TIME FOR PROCEDURE. VIN ANDRE NOTIFIED
[2016-06-26] MEDS ORDERED: CEFEPIME 1 GM in IV D5W 50 ML IV SCH (21:00)
--- NOTE | 2016-06-26 21:00 | NUR ---
RN NOTES: CALLED [facility] SPOKE TO VIN PRICE. CONFIRMED THAT THE PATIENT IS ALREADY ADMITTED IN THEIR FACILITY. WITH DISCHARGE ORDERS IN FROM DR. GALLEGOS. CALLED AND SPOKE TO PATIENT;S TIERA AND INFORMED REGARDING PATIENT'S TRANSFER.
== END 2016-06-26 21:53 | disposition short-term general hospital (02) | DRG 981 ==
LOC: ER 05:52 → ICU 07:42 → TELE1 06-25 17:25
PROVIDERS: ADMIT Internal Medicine; ATTEND Internal Medicine
PROC: 5A1945Z Respiratory Ventilation, 24-96 Consecutive Hours (ICD-10-PCS; principal; 2016-06-22)
PROC: 0BH17EZ Insertion of Endotracheal Airway into Trachea, Via Natural or Artificial Opening (ICD-10-PCS; 2016-06-22)
PROC: 30233N1 Transfusion of Nonautologous Red Blood Cells into Peripheral Vein, Percutaneous Approach (ICD-10-PCS; 2016-06-22)
PROC: 05H533Z Insertion of Infusion Device into Right Subclavian Vein, Percutaneous Approach (ICD-10-PCS; 2016-06-22)
PROC: 0LBV0ZZ Excision of Right Foot Tendon, Open Approach (ICD-10-PCS; 2016-06-25)
DX: J96.01 Acute respiratory failure with hypoxia (principal); E43 Unspecified severe protein-calorie malnutrition; I21.4 Non-ST elevation (NSTEMI) myocardial infarction; G93.40 Encephalopathy, unspecified; N17.0 Acute kidney failure with tubular necrosis; K72.00 Acute and subacute hepatic failure without coma; I50.33 Acute on chronic diastolic (congestive) heart failure; I13.0 Hypertensive heart and chronic kidney disease with heart failure and stage 1 through stage 4 chronic kidney disease, or unspecified chronic kidney disease; Z68.43 Body mass index [BMI] 50.0-59.9, adult; J98.11 Atelectasis; E11.621 Type 2 diabetes mellitus with foot ulcer; N18.9 Chronic kidney disease, unspecified; E11.22 Type 2 diabetes mellitus with diabetic chronic kidney disease; E11.51 Type 2 diabetes mellitus with diabetic peripheral angiopathy without gangrene; E11.69 Type 2 diabetes mellitus with other specified complication; Z89.612 Acquired absence of left leg above knee; F17.210 Nicotine dependence, cigarettes, uncomplicated; Z91.19 Patient's noncompliance with other medical treatment and regimen; I25.10 Atherosclerotic heart disease of native coronary artery without angina pectoris; G47.33 Obstructive sleep apnea (adult) (pediatric); E66.01 Morbid (severe) obesity due to excess calories; E78.5 Hyperlipidemia, unspecified; Z79.4 Long term (current) use of insulin; D64.9 Anemia, unspecified; K21.9 Gastro-esophageal reflux disease without esophagitis; Z95.1 Presence of aortocoronary bypass graft; F32.9 Major depressive disorder, single episode, unspecified; Z86.73 Personal history of transient ischemic attack (TIA), and cerebral infarction without residual deficits; E83.42 Hypomagnesemia; E87.6 Hypokalemia; E03.9 Hypothyroidism, unspecified; I25.2 Old myocardial infarction; I34.0 Nonrheumatic mitral (valve) insufficiency; I70.0 Atherosclerosis of aorta; I77.810 Thoracic aortic ectasia; L97.519 Non-pressure chronic ulcer of other part of right foot with unspecified severity; Z89.512 Acquired absence of left leg below knee; Z95.5 Presence of coronary angioplasty implant and graft
CPT/HCPCS: 31720; 36415; 36600; 70450-TC; 71010-TC; 80048-TC; 80053-TC; 80076-TC; 80202-TC; 82728-TC; 82962-TC; 83540-TC; 83735-TC; 83880; 84100-TC; 84439-TC; 84443-TC; 84484-TC; 85025-TC; 85730-TC; 86850-TC; 86921-TC; 87070-TC; 87081-TC; 87186-TC; 93307-TC; 94003-TC; 94762-TC; 94799-TC; A4216; A4606; A6248; A6253; A6402; A6403; C9113; J0692; J1815; J1940; J2310; J2543; J3370; J3475; J3490; J7030; J7050; J7060; P9016-BL; Z7610

== ENCOUNTER 2016-07-12 09:05 | Outpatient (CLI) | payer MEDICARE, BC ==
[~2016-07-12 09:05] MED LIST changes: +ACET-2605 PO; +ACET-868 PO; +AMIN30LI4 PO; +BISA10SU8 RC; +BLOO-697 IN; +CALC-108 PO; +CEFE1PIG3 IV; +DOCU-270 PO; +Fluconazole PO; -HALO5VIA9 IM; -INSU100V27 SQ; +INSU100V3 SQ; -LEVO500T15 PO; +MAGN400O6 PO; +MULT-659 PO; +NA P133E RC; -PANT40TA2 PO; +PANT40TA4 PO; +Potassium Chloride PO; -QUET25TA PO; -RXVAN XX; +SUCR1ORA PO; -SUCR1ORA6 GT; +VANC1VIA2 IV; +ZINC220C8 PO
== END 2016-07-12 23:59 | disposition home or self-care (01) ==
LOC: WOU 09:05
PROVIDERS: ATTEND Podiatrist Foot & Ankle Surgery
DX: E11.621 Type 2 diabetes mellitus with foot ulcer (principal); L97.514 Non-pressure chronic ulcer of other part of right foot with necrosis of bone; E11.622 Type 2 diabetes mellitus with other skin ulcer; L97.819 Non-pressure chronic ulcer of other part of right lower leg with unspecified severity; E11.42 Type 2 diabetes mellitus with diabetic polyneuropathy; G47.33 Obstructive sleep apnea (adult) (pediatric); E66.01 Morbid (severe) obesity due to excess calories; Z68.39 Body mass index [BMI] 39.0-39.9, adult; E11.51 Type 2 diabetes mellitus with diabetic peripheral angiopathy without gangrene; I87.2 Venous insufficiency (chronic) (peripheral); I10 Essential (primary) hypertension; Z95.5 Presence of coronary angioplasty implant and graft; Z79.84 Long term (current) use of oral hypoglycemic drugs; Z79.899 Other long term (current) drug therapy; Z79.82 Long term (current) use of aspirin; Z79.4 Long term (current) use of insulin
CPT/HCPCS: 11044; 11047; 97606-TC; A6197; A6253; A6402

== ENCOUNTER 2016-07-17 10:39 | Inpatient (IN) | payer MEDICARE, BC ==
[~2016-07-17] VITALS: Ht 175.3 cm; Wt 121.1 kg
--- NOTE | 2016-07-17 11:00 | NUR ---
PT PETE FROM [facility] SENT BY DR. SIMENTAL FOR WOUND DEBRIDEMENT NED ON RIGHT FOOT. PT AAOX4. VSS. NAD NOTED. SEEN BY MD FOR EVAL. SAFETY AND COMFORT MEASURES PROVIDED. WILL MONITOR.
[2016-07-17] MEDS ORDERED: CARV6.252 PO (11:12)
[2016-07-17] MEDS ORDERED: DRON400T2 PO (11:12)
[2016-07-17] MEDS ORDERED: ASCO500T9 PO (11:12)
[2016-07-17] MEDS ORDERED: NITR0.4T6 SL (11:12)
[2016-07-17] MEDS ORDERED: DULO30CA2 PO (11:12)
[2016-07-17] MEDS ORDERED: TAMS0.4C34 PO (11:12)
[2016-07-17] MEDS ORDERED: ATOR80TA PO (11:12)
[2016-07-17] MEDS ORDERED: LOSA25TA13 PO (11:12)
[2016-07-17 11:32] LABS: BASOPHILS % (AUTO) 0.7 % (0.0-2.0); EOSINOPHILS # (AUTO) 0.3 /CMM (0.0-0.7); EOSINOPHILS % (AUTO) 4.4 % (0.0-6.0); HEMATOCRIT 24 % (39-51); HEMOGLOBIN 7.9 g/dL (13.5-17.5); LYMPHOCYTES # (AUTO) 1.2 /CMM (0.8-4.8); LYMPHOCYTES % (AUTO) 19.4 % (20.0-44.0); MEAN CORPUSCULAR HEMOGLOBIN 27 PG (26.0-33.0); MEAN CORPUSCULAR HGB CONC 33 g/dl (31.0-36.0); MEAN CORPUSCULAR VOLUME 84 fL (80-96); MONOCYTES # (AUTO) 0.4 /CMM (0.1-1.30); MONOCYTES % (AUTO) 7.3 % (2.0-12.0); NEUTROPHILS % (AUTO) 68.2 % (43.0-81.0); PLATELET COUNT (AUTO) 279 /CMM (150-450); RDW COEFFICIENT OF VARIATION 14.5 (11.5-15.0); WHITE BLOOD COUNT (AUTO) 5.9 K/uL (4.3-11.0)
[2016-07-17 11:47] LABS: INR 0.99 (0.87-1.13); PROTHROMBIN TIME 10.3 SECS (9.5-12.7)
[2016-07-17 11:48] LABS: ALBUMIN 2.8 g/dL (3.4-5.0); BILIRUBIN,TOTAL 0.2 mg/dL (0.2-1.0); CALCIUM, SERUM 7.9 mg/dL (8.5-10.1); CREATININE 1.4 mg/dL (0.6-1.3); POTASSIUM 4.5 mmol/L (3.5-5.1)
--- NOTE | 2016-07-17 12:41 | NUR ---
BED 200
--- NOTE | 2016-07-17 12:55 | NUR ---
REPORT GIVEN TO [facility] FOR MS ROOM 200.
--- NOTE | 2016-07-17 13:07 | NUR ---
MS RN NOTES RECEIVED PT. FROM ER IN STABLE CONDITION. WILL ORIENT PT. TO ROOM, BEGIN ADMISSION PROCESS, AND AWAIT FURTHER ORDERS FROM THE MD.
[2016-07-17] MEDS ORDERED: FEE PK DOSING 1 MIN EA MC ONE (13:28)
[2016-07-17 13:30] VITALS: BP 107/67
[2016-07-17] MEDS ORDERED: PIPERACILLIN /TAZOBACTAM 3.375 G in IV D5W 50 ML IV ONE (13:30)
[2016-07-17] MEDS ORDERED: ONDANSETRON HCL/PF 4 MG/2 ML VIAL IVP PRN (13:30)
[2016-07-17] MEDS ORDERED: MAGNESIUM HYDROXIDE 30 ML UDC PO PRN (13:30)
[2016-07-17] MEDS ORDERED: MORPHINE SULFATE INJ 4 MG/ML DISP.SYRIN IV PRN (13:30)
[2016-07-17] MEDS ORDERED: MAG HYDROX/AL HYDROX/SIMETH 30 ML UDC PO PRN (13:30)
[2016-07-17] MEDS ORDERED: ZOLPIDEM TARTRATE 5 MG TABLET PO PRN (13:30)
[2016-07-17] MEDS ORDERED: VANCOMYCIN 1 GM in IV D5W 250 ML IV ONE (13:30)
[2016-07-17] MEDS ORDERED: Z GUARD REMEDY 2 OZ OINT TP PRN (13:30)
[2016-07-17] MEDS ORDERED: VANCOMYCIN 1 GM in IV D5W 250 ML IV SCH (14:00)
[2016-07-17] MEDS ORDERED: DEXTROSE 50%-WATER 50 ML DISP.SYRIN IV PRN (15:30)
[2016-07-17] MEDS ORDERED: IV NS 0.9% 250 ML IV ONE (15:52)
[2016-07-17] MEDS ORDERED: IV SET PRIMARY PUMP SET 1 EA INFUS.SET MC ONE (15:53)
[2016-07-17] MEDS ORDERED: SECONDARY IV SET 1 EA INFUS.SET MC ONE (15:53)
[2016-07-17] MEDS: VANCOMYCIN 1.25 GM in IV D5W 500 ML IV SCH (16:51)
[2016-07-17 16:53] VITALS: BP 97/59
[2016-07-17] MEDS: BLOOD SUGAR DIAGNOSTIC 1 EACH STRIP VI SCH ×2 (16:56→21:21)
--- NOTE | 2016-07-17 19:13 | NUR ---
MS RN CLOSING NOTES PT. IN STABLE CONDITION, AWAKE, AND LYING COMFORTABLY IN BED. ALL NEEDS MET AND ALL ORDERS CARRIED OUT ACCORDINGLY. ALL SAFETY MEASURES IN PLACE. WILL ENDORSE TO NIGHTSHIFT NURSE FOR CRYSTAL
[2016-07-17 20:00] VITALS: BP 98/57
--- NOTE | 2016-07-17 20:00 | NUR ---
ms/rn opening notes Patient in bed, awake, alert x3. able to verbalize needs. assisted with needs. received endorsement from am rn.will monitor for any s/s of hypo/hyperglycemia. safety measures, require assistance, uses commands.will continue to monitor. patient will be room changed due to toilet bowl overflow.Rn supervisor mold cleaning and storage informed and made aware. will continue to monitor.
--- NOTE | 2016-07-17 20:00 | NUR ---
ms/rn opening notes Patient alert, oriented x3. sitting in chair. assisted with care. jose s/s of distress. bathroom concern regarding overflowing toilet bowl. informed evs but require driver engineer. informed supervisor bit and shank department and made aware. instructed to transfer patient to another available room. patient inform and will transfer to room 206-1.
[2016-07-17] MEDS: *INSULIN REGULAR(HUMULIN R)HUM 100 UNIT/ML VIAL SQ PRN (21:32)
[2016-07-17] MEDS ORDERED: PIPERACILLIN /TAZOBACTAM 3.375 G VIAL IV ONE (23:35)
[2016-07-17] MEDS ORDERED: IV D5W 50 ML IV ONE (23:35)
[2016-07-17] MEDS: PIPERACILLIN /TAZOBACTAM 3.375 G in IV D5W 50 ML IV SCH (23:51)
[2016-07-18] MEDS ORDERED: PIPERACILLIN /TAZOBACTAM 3.375 G VIAL IV ONE (04:46)
[2016-07-18] MEDS ORDERED: IV D5W 50 ML IV ONE (04:46)
[2016-07-18] MEDS: PIPERACILLIN /TAZOBACTAM 3.375 G in IV D5W 50 ML IV SCH ×4 (05:30→23:49)
--- NOTE | 2016-07-18 06:13 | NUR ---
ms/rn notes patient sitting in bed. intermittently in sleep. prefer to be more independent to care but being monitored for safety measures. iv atb administered monitoring for any s/s of adverse effect. right foot wound dressing changed and photo done . wound consult ordered by md. labs in am done waiting for result in am. iv on right ac #20 intact and patent.will endorse to am rn for continuity of care.
[2016-07-18 06:55] LABS: BASOPHILS % (AUTO) 0.4 % (0.0-2.0); EOSINOPHILS # (AUTO) 0.2 /CMM (0.0-0.7); EOSINOPHILS % (AUTO) 3.4 % (0.0-6.0); HEMATOCRIT 24 % (39-51); HEMOGLOBIN 7.9 g/dL (13.5-17.5); LYMPHOCYTES # (AUTO) 1.3 /CMM (0.8-4.8); LYMPHOCYTES % (AUTO) 18.2 % (20.0-44.0); MEAN CORPUSCULAR HEMOGLOBIN 27 PG (26.0-33.0); MEAN CORPUSCULAR HGB CONC 33 g/dl (31.0-36.0); MEAN CORPUSCULAR VOLUME 84 fL (80-96); MONOCYTES # (AUTO) 0.5 /CMM (0.1-1.30); MONOCYTES % (AUTO) 6.8 % (2.0-12.0); NEUTROPHILS # (AUTO) 4.9 /CMM (1.8-8.9); NEUTROPHILS % (AUTO) 71.2 % (43.0-81.0); PLATELET COUNT (AUTO) 278 /CMM (150-450); RDW COEFFICIENT OF VARIATION 15.3 (11.5-15.0); RED BLOOD CELL COUNT(AUTO) 2.89 MIL/uL (4.5-6.0); WHITE BLOOD COUNT (AUTO) 6.9 K/uL (4.3-11.0)
[2016-07-18] MEDS: BLOOD SUGAR DIAGNOSTIC 1 EACH STRIP VI SCH ×4 (07:05→22:06)
[2016-07-18 07:11] LABS: CALCIUM, SERUM 8.3 mg/dL (8.5-10.1); CREATININE 1.4 mg/dL (0.6-1.3); MAGNESIUM 2.2 mg/dL (1.8-2.4); PHOSPHORUS 4.4 mg/dL (2.5-4.9); POTASSIUM 4.4 mmol/L (3.5-5.1)
--- NOTE | 2016-07-18 07:15 | NUR ---
MS RN NOTES: PT IN BED, AWAKE, REMAINS A/O X3, DENIES ANY PAIN OR DISCOMFORT AT THIS TIME, REMAINS ON RA, RESPIRATIONS EVEN AND UNLABORED. IV ACCESS PATENT AND INTACT, NO REDNESS OR INFILTRATION NOTED. VS REMAINS STABLE, ALL NEEDS ATTENDED. WILL CONTINUE TO MONITOR, PATIENT FOUND SITTING UP IN BED ABLE TO MAKE NEEDS KNOWN INSTRUCTED PT TO LAY BACK IN BED FOR SAFETY
[2016-07-18 08:00] VITALS: BP 114/65
[2016-07-18] MEDS: PANTOPRAZOLE 40 MG TABLET.DR PO SCH (08:22)
[2016-07-18] MEDS: INSULIN REGULAR, HUMAN 100 UNIT/ML 3 ML VIAL SQ PRN ×2 (11:56→16:46)
[2016-07-18] MEDS: VANCOMYCIN 1.25 GM in IV D5W 500 ML IV SCH (15:15)
[2016-07-18 16:00] VITALS: BP 129/72
[2016-07-18] MEDS: GENTAMICIN 0.1% OINT 15 GM TUBE TP SCH (16:47)
[2016-07-18] MEDS: CHLORHEXIDINE GLUCONATE 4% 118 ML BOTTLE TP SCH (18:32)
--- NOTE | 2016-07-18 19:10 | NUR ---
MS RN NOTES: PT IN BED, AWAKE, REMAINS A/O X3, DENIES ANY PAIN OR DISCOMFORT AT THIS TIME, REMAINS ON RA, RESPIRATIONS EVEN AND UNLABORED. IV ACCESS PATENT AND INTACT, NO REDNESS OR INFILTRATION NOTED. VS REMAINS STABLE, ALL NEEDS ATTENDED. WILL CONTINUE TO MONITOR, PATIENT SITTING UP IN BED ABLE TO MAKE NEEDS KNOWN INSTRUCTED PT TO LAY BACK IN BED FOR SAFETY, ENDORSED TO NEXT SHIFT FOR CONTINUITY OF CARE
--- NOTE | 2016-07-18 19:15 | NUR ---
MS RN NOTES RECEIVED SITTING ON BED,A/O X4,DENIES PAIN ON RIGHT FOOT,DRESSING INTACT AND DRY.DVT PUMP CONTRAINDICATION FOR PRESENCE OF EDEMA RIGHT LOWER LEG.ENCOURAGED PATIENT TO ELEVATE RIGHT LEG ON PILLOWS, S/P INSERTION OF MIDLINE #18 ON SHAVONNE.NOTED PREVIOUS AKA.CALL LIGHT IN REACH,NEEDS ANTICIPATED.
[2016-07-18 20:00] VITALS: BP 103/60
[2016-07-18] MEDS: ACETAMINOPHEN 325 MG TABLET PO PRN (20:18)
--- NOTE | 2016-07-18 20:18 | NUR ---
MS RN NOTES C/O HEADACHE 3/10 ON PAIN SCALE, MEDICATED WITH TYLENOL 650MG PO PER PATIENT REQUEST.
--- NOTE | 2016-07-18 22:00 | NUR ---
MS RN NOTES ACCU-CHECK BLOOD SUGAR CHECK 105,NO INSULIN COVERAGE.
--- NOTE | 2016-07-19 | NUR ---
MS RN NOTES DUE KENNY WOODS
--- NOTE | 2016-07-19 02:00 | NUR ---
MS RN NOTES SOUND ASLEEP WITH RIGHT LEG ELEVATED ON PILLOWS
[2016-07-19] MEDS: PIPERACILLIN /TAZOBACTAM 3.375 G in IV D5W 50 ML IV SCH ×4 (06:00→23:17)
--- NOTE | 2016-07-19 06:00 | NUR ---
MS RN NOTES DUE ZOSYN 3.375GM IVPB HUNG
--- NOTE | 2016-07-19 06:30 | NUR ---
MS RN NOTES ACCU-CHECK BLOOD SUGAR CHECK 114,NO INSULIN COVERAGE
[2016-07-19] MEDS: BLOOD SUGAR DIAGNOSTIC 1 EACH STRIP VI SCH ×4 (06:51→21:57)
--- NOTE | 2016-07-19 07:05 | NUR ---
MS RN NOTES NO SIGNIFICANT CHANGE IN STATUS,SLEPT WELL AT NOC.CALL LIGHT IN REACH,NEEDS ATTENDED.
[2016-07-19 07:35] LABS: CALCIUM, SERUM 8.4 mg/dL (8.5-10.1); CARBON DIOXIDE 27 mmol/L (21-32); CHLORIDE 106 mmol/L (98-107); CREATININE 1.3 mg/dL (0.6-1.3); GLUCOSE 108 mg/dL (74-106); POTASSIUM 4.3 mmol/L (3.5-5.1); SODIUM SERUM 141 mmol/L (136-145); UREA NITROGEN, BLOOD 19 mg/dL (7-18)
[2016-07-19 08:00] VITALS: BP 133/100
[2016-07-19] MEDS: PANTOPRAZOLE 40 MG TABLET.DR PO SCH (08:28)
[2016-07-19] MEDS: TERBINAFINE HCL 250 MG TABLET PO SCH (08:28)
[2016-07-19] MEDS: GENTAMICIN 0.1% OINT 15 GM TUBE TP SCH (08:30)
[2016-07-19] MEDS: CHLORHEXIDINE GLUCONATE 4% 118 ML BOTTLE TP SCH (08:30)
[2016-07-19] MEDS ORDERED: GENTAMICIN 0.1% OINT 15 GM TUBE TP SCH (09:00)
[2016-07-19 09:45] VITALS: BP 133/60
--- NOTE | 2016-07-19 10:59 | NUR ---
WOUND CARE CONSULT: PT PRESENTS WITH RT FOOT DRESSING. PT ABLE TO ASSIST WITH TURNING AND REPOSITIONING. LEFT STUMP INTACT AND SACRAL/BUTTOCKS INTACT. PT CONTINENT AT THIS TIME. WILL SEE PRN. PT FOLLOWED BY DR BELCZYK. WIGGINS IN AGREEMENT WITH PLAN OF CARE. PT ON [place] ISOFLEX LOW AIRLOSS BED.
[2016-07-19] MEDS: ACETAMINOPHEN 325 MG TABLET PO PRN (12:13)
[2016-07-19] MEDS: INSULIN REGULAR, HUMAN 100 UNIT/ML 3 ML VIAL SQ PRN ×2 (12:18→17:00)
[2016-07-19] MEDS: VANCOMYCIN 1.25 GM in IV D5W 500 ML IV SCH (14:25)
[2016-07-19 16:00] VITALS: BP 99/61
--- NOTE | 2016-07-19 19:33 | NUR ---
MS RN NOTES: PT IN BED, AWAKE, REMAINS A/O X3, DENIES ANY PAIN OR DISCOMFORT AT THIS TIME, REMAINS ON RA, RESPIRATIONS EVEN AND UNLABORED. IV ACCESS PATENT AND INTACT, NO REDNESS OR INFILTRATION NOTED. VS REMAINS STABLE, ALL NEEDS ATTENDED. WILL CONTINUE TO MONITOR, PATIENT SITTING UP IN BED ABLE TO MAKE NEEDS KNOWN INSTRUCTED PT TO LAY BACK IN BED AND ELEVATE RIGHT FOOT FOR SAFETY, ENDORSED TO NEXT SHIFT FOR CONTINUITY OF CARE
--- NOTE | 2016-07-19 19:40 | NUR ---
MS RN NOTE: PATIENT RESTING IN BED, NO ACUTE DISTRESS NOTED. BREATHING EVEN AND UNLABORED, NO SOB NOTED. MIDLINE TO SHAVONNE IN PLACE. WOUND TO RIGHT FOOT WITH DRESSING IN PLACE, NO BLEEDING OR DRAINAGE NOTED. NO S/S OF HYPER/HYPOGLYCEMIA NOTED. BED LOCKED AND IN LOWEST POSITION, CALL LIGHT IN REACH. WILL CONTINUE TO MONITOR.
[2016-07-19 20:00] VITALS: BP 125/84
[2016-07-19] MEDS: HYDROCODONE/APAP 5/325MG 1 EACH TABLET PO PRN (21:57)
--- NOTE | 2016-07-19 22:00 | NUR ---
MS RN NOTE: PATIENT COMPLAINS OF PAIN TO RIGHT FOOT 08/28, NORCO 5/325 MG ORAL GIVEN PER MD ORDER. WILL CONTINUE TO MONITOR.
[2016-07-19] MEDS: *INSULIN REGULAR(HUMULIN R)HUM 100 UNIT/ML VIAL SQ PRN (22:01)
--- NOTE | 2016-07-19 22:30 | NUR ---
MS RN NOTE: PATIENT BLOOD SUGAR LEVEL 218 MG/DL, PATIENT TO RECEIVE 4 UNITS OF INSULIN PER SLIDING SCALE. PATIENT DENIES S/S OF HYPERGLYCEMIA AT THIS TIME. WILL CONTINUE TO MONITOR.
[2016-07-19] MEDS ORDERED: IV SET PRIMARY PUMP SET 1 EA INFUS.SET MC ONE (23:26)
--- NOTE | 2016-07-20 06:05 | NUR ---
MS RN NOTE: PATIENT RESTING IN BED, NO ACUTE DISTRESS NOTED. BREATHING EVEN AND UNLABORED, NO SOB NOTED. MIDLINE TO SHAVONNE IN PLACE. WOUND TO RIGHT FOOT WITH DRESSING IN PLACE, NO BLEEDING OR DRAINAGE NOTED. PATIENT BLOOD SUGAR LEVEL 108 MG/DL, NO INSULIN NEEDED PER SLIDING SCALE. NO S/S OF HYPER/HYPOGLYCEMIA NOTED. BED LOCKED AND IN LOWEST POSITION, CALL LIGHT IN REACH. WILL ENDORSE TO DAY NURSE TO CONTINUE WITH PLAN OF CARE.
[2016-07-20] MEDS: PIPERACILLIN /TAZOBACTAM 3.375 G in IV D5W 50 ML IV SCH ×3 (06:11→17:26)
[2016-07-20 06:50] LABS: CALCIUM, SERUM 8.3 mg/dL (8.5-10.1); CARBON DIOXIDE 28 mmol/L (21-32); CHLORIDE 106 mmol/L (98-107); CREATININE 1.2 mg/dL (0.6-1.3); GLUCOSE 95 mg/dL (74-106); POTASSIUM 4.1 mmol/L (3.5-5.1); SODIUM SERUM 142 mmol/L (136-145); UREA NITROGEN, BLOOD 16 mg/dL (7-18)
[2016-07-20] MEDS: BLOOD SUGAR DIAGNOSTIC 1 EACH STRIP VI SCH ×4 (07:07→21:29)
[2016-07-20] MEDS: PANTOPRAZOLE 40 MG TABLET.DR PO SCH (07:07)
--- NOTE | 2016-07-20 07:15 | NUR ---
RN MS NOTES PATIENT IN BED, ALERT AND ORIENTED, NO COMPLAINT OF PAIN AT THIS TIME, NEEDS ATTENDED, SAFETY MEASURES IN PLACED, CALL LIGHT WITHIN REACH, WILL CONTINUE TO MONITOR.
[2016-07-20 08:00] VITALS: BP 130/86
[2016-07-20] MEDS: TERBINAFINE HCL 250 MG TABLET PO SCH (08:17)
[2016-07-20] MEDS: GENTAMICIN 0.1% OINT 15 GM TUBE TP SCH (08:18)
[2016-07-20] MEDS: INSULIN REGULAR, HUMAN 100 UNIT/ML 3 ML VIAL SQ PRN ×2 (12:26→17:25)
[2016-07-20] MEDS: VANCOMYCIN 1.25 GM in IV D5W 500 ML IV SCH (15:09)
[2016-07-20] MEDS: CHLORHEXIDINE GLUCONATE 4% 118 ML BOTTLE TP SCH (15:10)
--- NOTE | 2016-07-20 15:29 | NUR ---
RN MS NOTES PATIENT REFUSED WOUND TREATMENT, RE-EDUCATED, PER PATIENT, "I WILL HAVE WOUND DEBRIDEMENT TOMORROW, ITS FINE", OFFERED X3, STILL REFUSED. ENCOURAGED PATIENT TO ELEVATE RIGHT LEG, NON-COMPLIANCE AT TIMES. WILL CONTINUE TO MONITOR.
[2016-07-20 16:00] VITALS: BP 104/61
--- NOTE | 2016-07-20 18:41 | NUR ---
RN MS NOTES PATIENT IN BED, WATCHING TV, NO DISTRESS NOTED, ALL DUE MEDS GIVEN ORDERED, STILL REFUSING WOUND TREATMENT AT THIS TIME, ALL NEEDS ATTENDED AND MET, CALL LIGHT WITHIN REACH, WILL ENDORSE TO INVENTORY AUDITOR FOR CRYSTAL.
--- NOTE | 2016-07-20 19:30 | NUR ---
MSRN FULLY AWAKE, RIGHT FOOT DRESSING DRY AND INTACT, REFUSED TO BE ELEVATED. NO NEEDS FOR NOW. AWARE OF HIS PROCEDURE IN AM. SAFETY MEASURES EMPHASIZED, CONTINUED.
[2016-07-20 20:00] VITALS: BP 121/63
[2016-07-20 20:01] VITALS: BP 121/63
--- NOTE | 2016-07-20 21:00 | NUR ---
MSRN BS WAS 213 COVERED WITH 4 UNITS REGULAR INSULIN SQ PER HS S/S. SNACKS PROVIDED.
[2016-07-20] MEDS: *INSULIN REGULAR(HUMULIN R)HUM 100 UNIT/ML VIAL SQ PRN (21:28)
--- NOTE | 2016-07-20 22:50 | NUR ---
MSVIN SEEN BY DR. SIMENTAL.
[2016-07-20] MEDS: HYDROCODONE/APAP 5/325MG 1 EACH TABLET PO PRN (22:58)
--- NOTE | 2016-07-20 22:59 | NUR ---
MSRN RIGHT SIDE NECK PAIN, NORCO 1 TAB ADMINISTERED ORDERED. WILL BE NPO POST MIDNIGHT FOR PROCEDURE IN AM. BEDREST INSTRUCTED.
[2016-07-21] MEDS: PIPERACILLIN /TAZOBACTAM 3.375 G in IV D5W 50 ML IV SCH ×5 (00:37→23:52)
--- NOTE | 2016-07-21 02:10 | NUR ---
MSRN ORDERS RECEIVED FROM DR. RUIZ FOR PREOP LABS. CARRIED OUT. KEPT NPO
[2016-07-21 04:34] LABS: BASOPHILS % (AUTO) 0.7 % (0.0-2.0); EOSINOPHILS # (AUTO) 0.3 /CMM (0.0-0.7); EOSINOPHILS % (AUTO) 4.4 % (0.0-6.0); HEMATOCRIT 27 % (39-51); HEMOGLOBIN 8.5 g/dL (13.5-17.5); LYMPHOCYTES # (AUTO) 1.6 /CMM (0.8-4.8); LYMPHOCYTES % (AUTO) 23.5 % (20.0-44.0); MEAN CORPUSCULAR HEMOGLOBIN 27 PG (26.0-33.0); MEAN CORPUSCULAR HGB CONC 32 g/dl (31.0-36.0); MEAN CORPUSCULAR VOLUME 83 fL (80-96); MONOCYTES # (AUTO) 0.5 /CMM (0.1-1.30); MONOCYTES % (AUTO) 6.8 % (2.0-12.0); NEUTROPHILS # (AUTO) 4.3 /CMM (1.8-8.9); NEUTROPHILS % (AUTO) 64.6 % (43.0-81.0); PLATELET COUNT (AUTO) 285 /CMM (150-450); RDW COEFFICIENT OF VARIATION 15.1 (11.5-15.0); RED BLOOD CELL COUNT(AUTO) 3.19 MIL/uL (4.5-6.0); WHITE BLOOD COUNT (AUTO) 6.7 K/uL (4.3-11.0)
--- NOTE | 2016-07-21 04:45 | NUR ---
QING LABS DRAWN.
[2016-07-21 04:46] LABS: INR 0.96 (0.87-1.13); PROTHROMBIN TIME 10.3 SECS (9.5-12.7)
[2016-07-21 04:50] LABS: ALANINE AMINOTRANSFERASE 16 U/L (12-78); ALBUMIN 3.1 g/dL (3.4-5.0); ALKALINE PHOSPHATASE 84 U/L (46-116); ASPARTATE AMINOTRANSFERASE 14 U/L (15-37); BILIRUBIN,TOTAL 0.3 mg/dL (0.2-1.0); CALCIUM, SERUM 8.1 mg/dL (8.5-10.1); CARBON DIOXIDE 27 mmol/L (21-32); CHLORIDE 105 mmol/L (98-107); CREATININE 1.2 mg/dL (0.6-1.3); GLUCOSE 125 mg/dL (74-106); PHOSPHORUS 3.5 mg/dL (2.5-4.9); SODIUM SERUM 141 mmol/L (136-145); TOTAL PROTEIN, SERUM 7.9 g/dL (6.4-8.2); UREA NITROGEN, BLOOD 14 mg/dL (7-18)
[2016-07-21] MEDS: BLOOD SUGAR DIAGNOSTIC 1 EACH STRIP VI SCH ×4 (05:53→22:08)
--- NOTE | 2016-07-21 06:00 | NUR ---
MSRN BS 115.
[2016-07-21] MEDS ORDERED: MINERAL OIL 10 ML VIAL MC ONE (06:39)
[2016-07-21] MEDS ORDERED: LIDOCAINE HCL/PF 1% 30 ML SDV ONE (06:39)
[2016-07-21] MEDS ORDERED: BUPIVACAINE MPF W/EPI 0.25% 30 ML VIAL ONE (06:39)
--- NOTE | 2016-07-21 07:12 | NUR ---
MSRN SPOKE TO OR NURSE, PATIENT FOR SURGER.
--- NOTE | 2016-07-21 07:15 | NUR ---
VIN MS NOTES PATIENT BROUGHT TO OR FOR WOUND DEBRIDEMENT AND ALLOGRAFT.
--- NOTE | 2016-07-21 08:55 | NUR ---
RN MS NOTES PATIENT CAME BACK FROM OR FOR S/P RIGHT FOOT DEBRIDEMENT AND ALLOGRAFT APPLICATION, CONDITION STABLE, PER DR. MARTIN RESUME PRE-OP MEDS AND DIET, D/C PLANNING. VITALS STABLE.
[2016-07-21 09:00] VITALS: BP 121/78
[2016-07-21] MEDS: TERBINAFINE HCL 250 MG TABLET PO SCH (09:20)
[2016-07-21] MEDS: PANTOPRAZOLE 40 MG TABLET.DR PO SCH (09:20)
[2016-07-21] MEDS: GENTAMICIN 0.1% OINT 15 GM TUBE TP SCH (09:21)
[2016-07-21] MEDS: HYDROCODONE/APAP 5/325MG 1 EACH TABLET PO PRN ×2 (09:22→18:43)
--- NOTE | 2016-07-21 12:00 | NUR ---
RN MS NOTES PATIENT NON-COMPLIANT WITH CARE, REFUSES TO STAY IN BED AND ELEVATE RIGHT FOOT, PATIENT IS CURRENTLY SITTING ON THE CHAIR, PATIENT STATED, "I KNOW WHAT TO DO, I'VE BEEN DOING THIS FOR A LONG TIME NOW," NO S/SX OF HYPO OR HYPERGLYCEMIA NOTED. CALL LIGHT WITHIN REACH, WILL CONTINUE TO MONITOR.
[2016-07-21] MEDS: INSULIN REGULAR, HUMAN 100 UNIT/ML 3 ML VIAL SQ PRN ×3 (12:29→22:14)
[2016-07-21] MEDS: VANCOMYCIN 1.25 GM in IV D5W 500 ML IV SCH (14:16)
[2016-07-21] MEDS ORDERED: ANESTHESIA TRAY IN PYXIS 1 EA TRAY MC ONE (14:57)
[2016-07-21 16:00] VITALS: BP 137/70
[2016-07-21] MEDS: CHLORHEXIDINE GLUCONATE 4% 118 ML BOTTLE TP SCH (17:08)
--- NOTE | 2016-07-21 19:00 | NUR ---
RN MS NOTES PATIENT STILL NON-COMPLIANT REFUSING TO ELEVATE LEGS, PATIENT IS INSISTING ON GOING HOME TOMORROW, PARTS MANAGER MADE AWARE, ALL DUE MEDS GIVEN ORDERED, PATIENT COMPLAINED OF RIGHT NECK PAIN, NORCO GIVEN, PATIENT SMOKE TWICE DURING THIS SHIFT, SIGNED SMOKING CONSENT, EXPLAINED RISKS OF SMOKING AND PATIENT STILL INSISTED ON SMOKING, ALL NEEDS ATTENDED AND MET, CALL LIGHT WITHIN REACH, WILL ENDORSE TO REAL ESTATE SALES MANAGER FOR CRYSTAL.
--- NOTE | 2016-07-21 19:38 | NUR ---
RN MS NOTES RECEIVED A CALL FROM DR. MARTIN, STATED THAT PATIENT IS CLEARED TO BE DISCHARGED TOMORROW. PATIENT INSISTING ON GOING HOME TOMORROW INSTEAD OF SNF, CANCER SPEC MADE AWARE AND WILL ENDORSE TO SCHEDULE MAKER TO RELAY TO MD IN AM.
[2016-07-21 20:00] VITALS: BP 106/53
--- NOTE | 2016-07-21 20:00 | NUR ---
MS RN NOTES RECEIVED SITTING ON A WHEELCHAIR,A/O X2-3,BREATHING REGULAR,NOT IN ANY FORM OF DISTRESS.S/O RIGHT FOOT DEBRIDEMENT TODAY BY DR MARTIN.DRESSING INTACT AND DRY.ENCOURAGE TO ELEVATE ON PILLOWS WHILE ON BED.PAIN MANAGEMENT GIVEN BY QINGHIFT EFFECTIVE.WITH LEFT UPPER ARM MIDLINE INTACT AND PATENT.CALL LIGHT IN REACH,NEEDS ANTICIPATED.
[2016-07-21 20:41] VITALS: BP 106/53
--- NOTE | 2016-07-21 22:00 | NUR ---
MS RN NOTES ACCU-CHECK BLOOD SUGAR CHECK 134,COVERE WITH HUMULIN R 2 UNITS PER SLIDING SCALE.
--- NOTE | 2016-07-22 03:00 | NUR ---
MS RN NOTES SLEEPING,KEPT WARM AND COMFORTABLE.
[2016-07-22] MEDS: PIPERACILLIN /TAZOBACTAM 3.375 G in IV D5W 50 ML IV SCH (05:30)
[2016-07-22] MEDS: BLOOD SUGAR DIAGNOSTIC 1 EACH STRIP VI SCH (05:39)
[2016-07-22] MEDS: INSULIN REGULAR, HUMAN 100 UNIT/ML 3 ML VIAL SQ PRN (05:47)
--- NOTE | 2016-07-22 06:00 | NUR ---
MS RN NOTES ACCU-CHECK BLOOD SUGAR CHECK 133,COVERED WITH HUMULIN R 2 UNITS PER MILD SLIDING SCALE.
--- NOTE | 2016-07-22 06:19 | NUR ---
MS RN NOTES SLEPT WELL,DENIES PAIN.IV ABX TOLERATED WELL.IN NO ACUTE DISTRESS.POSSIBLE D/C TODAY.WILL ENDORSE TO DAY NURSE FOR CRYSTAL.
--- NOTE | 2016-07-22 07:26 | NUR ---
MS RN OPENING NOTE PATIENT IS ALERT AND ORIENTED x4. NO PAIN AT THIS TIME. NO SOB OR DISTRESS NOTED. CALL LIGHT WITHIN REACH. SAFETY MEASURES IMPLEMENTED. ABLE TO COMMUNICATE NEEDS. IV INTACT AND PATENT NO REDNESS OR SWELLING NOTED AT THIS TIME. WILL CONTINUE TO MONITOR
[2016-07-22] MEDS: PANTOPRAZOLE 40 MG TABLET.DR PO SCH (07:58)
[2016-07-22 08:00] VITALS: BP 102/54
[2016-07-22] MEDS: TERBINAFINE HCL 250 MG TABLET PO SCH (08:02)
[2016-07-22] MEDS: GENTAMICIN 0.1% OINT 15 GM TUBE TP SCH (08:02)
[2016-07-22 08:44] LABS: CALCIUM, SERUM 8.3 mg/dL (8.5-10.1); CARBON DIOXIDE 24 mmol/L (21-32); CHLORIDE 105 mmol/L (98-107); CREATININE 1.2 mg/dL (0.6-1.3); GLUCOSE 122 mg/dL (74-106); POTASSIUM 3.8 mmol/L (3.5-5.1); SODIUM SERUM 139 mmol/L (136-145); UREA NITROGEN, BLOOD 12 mg/dL (7-18)
--- NOTE | 2016-07-22 10:05 | NUR ---
MS RN NOTE PATIENT NOTIFIED ME THAT HE WAS LEAVING, AND THAT HE NEEDED TO GET READY. WHEN TALKING TO PATIENT, HE STATED " I AM GOING HOME, IM NOT PLAYING GAMES, IM GOING HOME WHETHER YOU LIKE IT OR NOT". PATIENT REFUSED TO STAY, EXPLAINED RISKS AND BENEFITS, PATIENT STILL REFUSED. ALL PATIENT'S BELONGINGS WITH PATIENT AND . IV REMOVED, SKI INTACT AND PATENT. NOTIFIED DR. MARTIN ABOUT PATIENT LEAVING. MASONRY INSTRUCTOR NOTIFIED. Unique Id: [id number] .
== END 2016-07-22 10:05 | disposition left against medical advice (07) | DRG 629 ==
LOC: ER 10:42 → MEDSG2 12:55
PROVIDERS: ADMIT Internal Medicine; ATTEND Internal Medicine
PROC: 05H633Z Insertion of Infusion Device into Left Subclavian Vein, Percutaneous Approach (ICD-10-PCS; 2016-07-18)
PROC: 0HRMXK3 Replacement of Right Foot Skin with Nonautologous Tissue Substitute, Full Thickness, External Approach (ICD-10-PCS; 2016-07-21)
PROC: 0QBN0ZZ Excision of Right Metatarsal, Open Approach (ICD-10-PCS; principal; 2016-07-21 07:30)
DX: E11.621 Type 2 diabetes mellitus with foot ulcer (principal); E44.0 Moderate protein-calorie malnutrition; D68.59 Other primary thrombophilia; M86.9 Osteomyelitis, unspecified; I13.2 Hypertensive heart and chronic kidney disease with heart failure and with stage 5 chronic kidney disease, or end stage renal disease; E11.69 Type 2 diabetes mellitus with other specified complication; E11.22 Type 2 diabetes mellitus with diabetic chronic kidney disease; D63.8 Anemia in other chronic diseases classified elsewhere; E66.01 Morbid (severe) obesity due to excess calories; I50.9 Heart failure, unspecified; N18.5 Chronic kidney disease, stage 5; Z86.73 Personal history of transient ischemic attack (TIA), and cerebral infarction without residual deficits; I25.10 Atherosclerotic heart disease of native coronary artery without angina pectoris; E78.5 Hyperlipidemia, unspecified; K21.9 Gastro-esophageal reflux disease without esophagitis; Z95.1 Presence of aortocoronary bypass graft; F17.210 Nicotine dependence, cigarettes, uncomplicated; Z68.39 Body mass index [BMI] 39.0-39.9, adult; E11.51 Type 2 diabetes mellitus with diabetic peripheral angiopathy without gangrene; Z89.612 Acquired absence of left leg above knee; G47.33 Obstructive sleep apnea (adult) (pediatric); Z91.19 Patient's noncompliance with other medical treatment and regimen; I70.90 Unspecified atherosclerosis; I25.2 Old myocardial infarction; Z95.0 Presence of cardiac pacemaker; N17.9 Acute kidney failure, unspecified; R26.9 Unspecified abnormalities of gait and mobility; E11.40 Type 2 diabetes mellitus with diabetic neuropathy, unspecified; E03.9 Hypothyroidism, unspecified; R13.10 Dysphagia, unspecified
CPT/HCPCS: 36415; 36569; 71010-TC; 80048-TC; 80053-TC; 80061-TC; 80076-TC; 80202-TC; 82962-TC; 83735-TC; 84100-TC; 85025-TC; 85610-TC; 85730-TC; 86850-TC; 87070-TC; 87075-TC; 87186-TC; A4606; A6209; A6253; A6402; A6403; J1815; J2543; J3370; J3490; J7050; J7060; Z7610

== ENCOUNTER 2016-07-26 13:00 | Outpatient (CLI) | payer MEDICARE, BC ==
[~2016-07-26 13:00] MED LIST changes: -ACET-2605 PO; -ACET-868 PO; -AMIN30LI4 PO; -APIX2.5T PO; +ASCO500T9 PO; -ATOR40TA PO; +ATOR80TA PO; -CARV12.52 PO; +CARV6.252 PO; -CEFE1PIG3 IV; -CEFT1FRO2 IV; -DILT240C2 PO; +DRON400T2 PO; +DULO30CA2 PO; -Fluconazole PO; -LISI2.5T2 PO; +LOSA25TA13 PO; -MAGN400O6 PO; -METO-302 PO; -NA P133E RC; +NITR0.4T6 SL; -PANT40TA4 PO; -Potassium Chloride PO; -SENN8.6T6 PO; -SUCR1ORA PO; +TAMS0.4C34 PO; -VANC1VIA2 IV
== END 2016-07-26 23:59 | disposition home health service (06) ==
LOC: WOU 13:00
PROVIDERS: ATTEND Podiatrist Foot & Ankle Surgery
DX: E11.621 Type 2 diabetes mellitus with foot ulcer (principal); L97.513 Non-pressure chronic ulcer of other part of right foot with necrosis of muscle; E11.42 Type 2 diabetes mellitus with diabetic polyneuropathy; G47.33 Obstructive sleep apnea (adult) (pediatric); F17.210 Nicotine dependence, cigarettes, uncomplicated; Z89.612 Acquired absence of left leg above knee; Z99.3 Dependence on wheelchair; I25.10 Atherosclerotic heart disease of native coronary artery without angina pectoris; Z95.5 Presence of coronary angioplasty implant and graft; Z79.4 Long term (current) use of insulin; Z79.84 Long term (current) use of oral hypoglycemic drugs; Z79.82 Long term (current) use of aspirin
CPT/HCPCS: 11043; 11046; A6207; A6402

== ENCOUNTER 2016-08-04 12:54 | Outpatient (CLI) | payer MEDICARE, BC | END 2016-08-04 23:59 | disposition home health service (06) | LOC: WOU 12:54 | PROVIDERS: ATTEND Podiatrist Foot & Ankle Surgery | DX: E11.621 Type 2 diabetes mellitus with foot ulcer (principal); L97.513 Non-pressure chronic ulcer of other part of right foot with necrosis of muscle; E11.622 Type 2 diabetes mellitus with other skin ulcer; L97.811 Non-pressure chronic ulcer of other part of right lower leg limited to breakdown of skin; E88.09 Other disorders of plasma-protein metabolism, not elsewhere classified; E66.9 Obesity, unspecified; Z68.39 Body mass index [BMI] 39.0-39.9, adult; B35.1 Tinea unguium; Z89.612 Acquired absence of left leg above knee; E05.00 Thyrotoxicosis with diffuse goiter without thyrotoxic crisis or storm; F17.210 Nicotine dependence, cigarettes, uncomplicated; Z99.3 Dependence on wheelchair; E46 Unspecified protein-calorie malnutrition; E11.42 Type 2 diabetes mellitus with diabetic polyneuropathy; R60.0 Localized edema; I89.0 Lymphedema, not elsewhere classified; E11.51 Type 2 diabetes mellitus with diabetic peripheral angiopathy without gangrene; I10 Essential (primary) hypertension; E11.65 Type 2 diabetes mellitus with hyperglycemia; Z79.4 Long term (current) use of insulin; Z79.82 Long term (current) use of aspirin; Z79.899 Other long term (current) drug therapy; Z89.421 Acquired absence of other right toe(s); G47.30 Sleep apnea, unspecified; I25.10 Atherosclerotic heart disease of native coronary artery without angina pectoris; Z95.5 Presence of coronary angioplasty implant and graft; E11.69 Type 2 diabetes mellitus with other specified complication; M86.671 Other chronic osteomyelitis, right ankle and foot | CPT/HCPCS: 11043; 11046; 97597; A6402 ==

== ENCOUNTER 2016-08-08 13:59 | Outpatient (CLI) | payer MEDICARE, BC | END 2016-08-08 23:59 | disposition home health service (06) | LOC: WOU 13:59 | PROVIDERS: ATTEND Podiatrist Foot & Ankle Surgery | DX: E11.621 Type 2 diabetes mellitus with foot ulcer (principal); L97.414 Non-pressure chronic ulcer of right heel and midfoot with necrosis of bone; E11.42 Type 2 diabetes mellitus with diabetic polyneuropathy; E11.52 Type 2 diabetes mellitus with diabetic peripheral angiopathy with gangrene; Z99.3 Dependence on wheelchair; F17.210 Nicotine dependence, cigarettes, uncomplicated; I25.10 Atherosclerotic heart disease of native coronary artery without angina pectoris; Z95.5 Presence of coronary angioplasty implant and graft; Z89.512 Acquired absence of left leg below knee; Z89.421 Acquired absence of other right toe(s); Z79.4 Long term (current) use of insulin; Z79.84 Long term (current) use of oral hypoglycemic drugs; Z79.82 Long term (current) use of aspirin | CPT/HCPCS: 11044; 11047; A6402 ==

== ENCOUNTER 2016-08-15 13:44 | Outpatient (CLI) | payer MEDICARE, BC | END 2016-08-15 23:59 | disposition home health service (06) | LOC: WOU 13:44 | PROVIDERS: ATTEND Podiatrist Foot & Ankle Surgery | DX: E11.621 Type 2 diabetes mellitus with foot ulcer (principal); L97.513 Non-pressure chronic ulcer of other part of right foot with necrosis of muscle; L97.511 Non-pressure chronic ulcer of other part of right foot limited to breakdown of skin; Z89.612 Acquired absence of left leg above knee; E11.42 Type 2 diabetes mellitus with diabetic polyneuropathy; Z99.3 Dependence on wheelchair; E11.51 Type 2 diabetes mellitus with diabetic peripheral angiopathy without gangrene; G47.30 Sleep apnea, unspecified; F17.200 Nicotine dependence, unspecified, uncomplicated; I25.10 Atherosclerotic heart disease of native coronary artery without angina pectoris; Z95.5 Presence of coronary angioplasty implant and graft; Z79.84 Long term (current) use of oral hypoglycemic drugs; Z79.899 Other long term (current) drug therapy; Z79.82 Long term (current) use of aspirin; E66.9 Obesity, unspecified; Z68.39 Body mass index [BMI] 39.0-39.9, adult; I89.0 Lymphedema, not elsewhere classified; R60.9 Edema, unspecified | CPT/HCPCS: 11042; 11043; A6253; A6402 ==

== ENCOUNTER 2016-08-23 13:59 | Outpatient (CLI) | payer MEDICARE, BC | END 2016-08-23 23:59 | disposition home health service (06) | LOC: WOU 13:59 | PROVIDERS: ATTEND Podiatrist Foot & Ankle Surgery | DX: E11.621 Type 2 diabetes mellitus with foot ulcer (principal); L97.514 Non-pressure chronic ulcer of other part of right foot with necrosis of bone; I87.2 Venous insufficiency (chronic) (peripheral); R60.0 Localized edema; E11.42 Type 2 diabetes mellitus with diabetic polyneuropathy; Z89.612 Acquired absence of left leg above knee; F17.210 Nicotine dependence, cigarettes, uncomplicated; I25.10 Atherosclerotic heart disease of native coronary artery without angina pectoris; Z95.5 Presence of coronary angioplasty implant and graft; G47.30 Sleep apnea, unspecified; Z99.3 Dependence on wheelchair; E05.00 Thyrotoxicosis with diffuse goiter without thyrotoxic crisis or storm; Z79.84 Long term (current) use of oral hypoglycemic drugs; Z79.4 Long term (current) use of insulin; Z79.899 Other long term (current) drug therapy; E08.52 Diabetes mellitus due to underlying condition with diabetic peripheral angiopathy with gangrene; E11.52 Type 2 diabetes mellitus with diabetic peripheral angiopathy with gangrene | CPT/HCPCS: 11042; 11043; 11045; 11046; A6253; A6402 ==

== ENCOUNTER 2016-08-24 13:49 | Inpatient (IN) | payer MEDICARE, BC ==
[~2016-08-24] VITALS: Ht 175.3 cm; Wt 127.9 kg
--- NOTE | 2016-08-24 13:50 | NUR ---
[facility] FROM [facility] FOR ADMISSION FOR RIGHT LEG WOUND, SENT BY DR. MCGILL. VSS. NAD NOTED. DENIES PAIN OR DISCOMFORT AT THIS TIME. SEEN BY MD FOR EVAL. SAFETY AND COMFORT MEASURES PROVIDED. WILL MONITOR.
[2016-08-24] MEDS: PIPERACILLIN /TAZOBACTAM 3.375 G in IV D5W 50 ML IV ONE ×2 (15:00→15:23)
[2016-08-24] MEDS ORDERED: VANCOMYCIN 1 GM in IV D5W 250 ML IV ONE (15:00)
--- NOTE | 2016-08-24 15:00 | NUR ---
IV ACCESS STARTED. BLOOD DRAWN FOR LABS. PT MEDICATED ORDERED.
--- NOTE | 2016-08-24 15:05 | NUR ---
CALLED FOR FOOD TRAY
[2016-08-24] MEDS ORDERED: IV SET PRIMARY PUMP SET 1 EA INFUS.SET MC ONE (15:11)
[2016-08-24 15:12] LABS: BASOPHILS # (AUTO) 0.1 /CMM (0.0-0.2); BASOPHILS % (AUTO) 1.4 % (0.0-2.0); EOSINOPHILS # (AUTO) 0.2 /CMM (0.0-0.7); EOSINOPHILS % (AUTO) 3.3 % (0.0-6.0); HEMATOCRIT 25 % (39-51); LYMPHOCYTES # (AUTO) 1.3 /CMM (0.8-4.8); LYMPHOCYTES % (AUTO) 21.9 % (20.0-44.0); MEAN CORPUSCULAR HEMOGLOBIN 26 PG (26.0-33.0); MEAN CORPUSCULAR HGB CONC 32 g/dl (31.0-36.0); MEAN CORPUSCULAR VOLUME 83 fL (80-96); MONOCYTES # (AUTO) 0.4 /CMM (0.1-1.30); MONOCYTES % (AUTO) 6.5 % (2.0-12.0); NEUTROPHILS # (AUTO) 3.8 /CMM (1.8-8.9); NEUTROPHILS % (AUTO) 66.9 % (43.0-81.0); PLATELET COUNT (AUTO) 166 /CMM (150-450); RDW COEFFICIENT OF VARIATION 15.2 (11.5-15.0); RED BLOOD CELL COUNT(AUTO) 3.08 MIL/uL (4.5-6.0); WHITE BLOOD COUNT (AUTO) 5.8 K/uL (4.3-11.0)
[2016-08-24 15:22] LABS: CALCIUM, SERUM 8.1 mg/dL (8.5-10.1); CARBON DIOXIDE 26 mmol/L (21-32); CHLORIDE 108 mmol/L (98-107); CREATININE 1.4 mg/dL (0.6-1.3); GLUCOSE 108 mg/dL (74-106); POTASSIUM 4.6 mmol/L (3.5-5.1); SODIUM SERUM 141 mmol/L (136-145); UREA NITROGEN, BLOOD 26 mg/dL (7-18)
[2016-08-24 15:28] LABS: ALANINE AMINOTRANSFERASE 13 U/L (12-78); ALKALINE PHOSPHATASE 83 U/L (46-116); ASPARTATE AMINOTRANSFERASE 13 U/L (15-37); BILIRUBIN,TOTAL 0.3 mg/dL (0.2-1.0); TOTAL PROTEIN, SERUM 6.9 g/dL (6.4-8.2)
[2016-08-24 16:00] VITALS: BP 123/83
--- NOTE | 2016-08-24 16:14 | NUR ---
REPORT GIVEN TO KALEB BANUELOS FOR MS ROOM 326-1
--- NOTE | 2016-08-24 16:45 | NUR ---
RN MS NOTES RECEIVED NEW ADMISSION FROM ER IN STALE CONDITION, NO APPARENT DISTRESS NOTED, DENIES PAIN, DENIES SOB.IV LINE ON RIGHT AC PATENT.ALL NEEDS MET, CALL LIGHT WITHIN REACH. WILL F/U WITH MD FOR ADMISSION ORDERS.
--- NOTE | 2016-08-24 19:00 | NUR ---
RN MS NOTES PATIENT IN BED, A.O X 4, NO APPARENT DISTRESS NOTED. DENIES PAIN DENIES SOB. SKIN ASSESSMENT DONE NOTED WITH LEFT AKA, AND RIGHT FOOT AND LEG WOUND. ALL NEEDS MET, CALL LIGHT IN REACH. WILL ENDORSE CARE TO PM SHIFT.
[2016-08-24] MEDS ORDERED: ZOLPIDEM TARTRATE 5 MG TABLET PO PRN (19:30)
[2016-08-24] MEDS ORDERED: Z GUARD REMEDY 2 OZ OINT TP PRN (19:30)
[2016-08-24] MEDS ORDERED: ONDANSETRON HCL/PF 4 MG/2 ML VIAL IVP PRN (19:30)
[2016-08-24] MEDS ORDERED: ACETAMINOPHEN 325 MG TABLET PO PRN (19:30)
[2016-08-24] MEDS ORDERED: DEXTROSE 50%-WATER 50 ML DISP.SYRIN IV PRN (19:30)
[2016-08-24 20:00] VITALS: BP 124/73
--- NOTE | 2016-08-24 20:00 | NUR ---
MS/SIGNAL INTELLIGENCE ANALYST; RECEIVED PT SITTING IN BED WITH HIS OWN CLOTHES. BREATHING NON LABORED. PT LT ABOVE KNEE AMPUTEE. RT FOOT WOUND WITH DRESSING INTACT. HL ON RAC # 18 INTACT FLUSHED WITH NS PATENT NON PAIN NOR SWELLING. PT VOIDED USED URINAL TO 600 ML CLEAR YELLOW URINE. PT WANTS TO SMOKE I TOLD HIM I WILL CHECK WITH MY CHARGE NURSE AND ALSO NEEDS TO SIGN CONSENT TO SMOKE. PT SIIGNED THE SMOKING CONSENT.
--- NOTE | 2016-08-24 20:30 | NUR ---
MS/PAYROLL ANALYST; CHARGE NURSE ABEBA MADE ROUND TO THIS PT.
--- NOTE | 2016-08-24 20:45 | NUR ---
MS/CONTINUOUS PICKLING LINE PICKLER; PT WENT TO THE LOBBY VIA WHEELCHAIR ACCOMPANIED BY HELENA HERNÁNDEZ TO SMOKE.
[2016-08-24] MEDS: BLOOD SUGAR DIAGNOSTIC 1 EACH STRIP IN SCH (21:48)
[2016-08-24] MEDS: ATORVASTATIN 40 MG TABLET PO SCH (21:50)
[2016-08-24] MEDS: INSULIN REGULAR, HUMAN 100 UNIT/ML 3 ML VIAL SQ PRN (21:55)
--- NOTE | 2016-08-24 22:00 | NUR ---
MS/HOT DIP TINNING SUPERVISOR; BS 165 COVERED WITH REGULAR INSULIN 3 UNITS SQ. WILL MONITOR.
[2016-08-25] VITALS (11 sets, daily range): BP systolic 121–153; BP diastolic 59–87
--- NOTE | 2016-08-25 06:00 | NUR ---
MS/CHRONIC SPECIALIST; BS 124 NO COVERAGE. PT REMAINED ON NPO AND PT. IS AWARE .
[2016-08-25] MEDS: BLOOD SUGAR DIAGNOSTIC 1 EACH STRIP IN SCH ×4 (06:06→21:19)
--- NOTE | 2016-08-25 06:29 | NUR ---
MS/NURSE EMERGENCY; PT SLEPT AT SHORT INTERVALS. DENIES PAIN. REMAINED ON NPO AND PT IS AWARE. CONTINUE TO MONITOR. CALL LIGHT WITHIN REACH. WILL ENDORSE TO THE DAY SHIFT NURSE.
[2016-08-25] MEDS: PANTOPRAZOLE 40 MG TABLET.DR PO SCH (07:30)
[2016-08-25] MEDS: LEVOTHYROXINE SODIUM 100 MCG TABLET PO SCH (07:30)
--- NOTE | 2016-08-25 07:40 | NUR ---
MS RN OPENING NOTE PATIENT IS ALERT AND ORIENTED x4. NO PAIN AT THIS TIME. NO SOB OR DISTRESS NOTED. CALL LIGHT WITHIN REACH. SAFETY MEASURES IMPLEMENTED. ABLE TO COMMUNICATE NEEDS. IV INTACT AND PATENT NO REDNESS OR SWELLING NOTED. CURRENTLY NPO FOR WOUND DEBRIDEMENT TODAY. WILL CONTINUE TO MONITOR
[2016-08-25 07:56] LABS: BASOPHILS % (AUTO) 0.5 % (0.0-2.0); EOSINOPHILS # (AUTO) 0.2 /CMM (0.0-0.7); EOSINOPHILS % (AUTO) 2.7 % (0.0-6.0); HEMATOCRIT 28 % (39-51); LYMPHOCYTES # (AUTO) 1.2 /CMM (0.8-4.8); LYMPHOCYTES % (AUTO) 15.8 % (20.0-44.0); MEAN CORPUSCULAR HEMOGLOBIN 27 PG (26.0-33.0); MEAN CORPUSCULAR HGB CONC 32 g/dl (31.0-36.0); MEAN CORPUSCULAR VOLUME 84 fL (80-96); MONOCYTES # (AUTO) 0.5 /CMM (0.1-1.30); NEUTROPHILS # (AUTO) 5.5 /CMM (1.8-8.9); PLATELET COUNT (AUTO) 176 /CMM (150-450); RDW COEFFICIENT OF VARIATION 16.5 (11.5-15.0); RED BLOOD CELL COUNT(AUTO) 3.36 MIL/uL (4.5-6.0); WHITE BLOOD COUNT (AUTO) 7.5 K/uL (4.3-11.0)
--- NOTE | 2016-08-25 08:00 | NUR ---
MS RN NOTE RESPIRATORY THERAPIST NOTIFIED ME THAT PATIENT HAD MEDICATION AT BEDSIDE AND ASKING FOR WATER. EXPLAINED TO PATIENT THAT HE IS CURRENTLY NOTHING BY MOUTH, AND THAT HOME MEDICATION NEEDED TO BE TAKEN TO PHARMACY WHILE IN STAY AT HOSPITAL. EXPLAINED RISKS AND BENEFITS, PATIENT VERBALIZED UNDERSTANDING.
[2016-08-25 08:20] LABS: CALCIUM, SERUM 8.2 mg/dL (8.5-10.1); CARBON DIOXIDE 26 mmol/L (21-32); CHLORIDE 107 mmol/L (98-107); CREATININE 1.5 mg/dL (0.6-1.3); GLUCOSE 121 mg/dL (74-106); MAGNESIUM 2.2 mg/dL (1.8-2.4); PHOSPHORUS 4.3 mg/dL (2.5-4.9); POTASSIUM 4.8 mmol/L (3.5-5.1); SODIUM SERUM 141 mmol/L (136-145); UREA NITROGEN, BLOOD 29 mg/dL (7-18)
[2016-08-25] MEDS: CLOPIDOGREL BISULFATE 75 MG TABLET PO SCH (09:00)
[2016-08-25] MEDS: SPIRONOLACTONE 25 MG TABLET PO SCH (09:00)
[2016-08-25] MEDS: CALCIUM CARB 600MG /VIT D 1 EACH TABLET PO SCH (09:00)
[2016-08-25] MEDS: LOSARTAN POTASSIUM 25 MG TABLET PO SCH (09:00)
[2016-08-25] MEDS: ASPIRIN 81 MG TAB.CHEW PO SCH (09:00)
[2016-08-25] MEDS: TAMSULOSIN 0.4 MG CAP.SR.24H PO SCH (09:00)
[2016-08-25] MEDS: MULTIVITAMINS,THERAGRAN 1 UDTAB TABLET PO SCH (09:00)
[2016-08-25] MEDS: DRONEDARONE HYDROCHLORIDE 400 MG TABLET PO SCH ×2 (09:00→15:32)
[2016-08-25] MEDS: ASCORBIC ACID 500 MG TABLET PO SCH (09:00)
[2016-08-25] MEDS: DOCUSATE SODIUM 100 MG CAPSULE PO SCH ×2 (09:00→15:32)
[2016-08-25] MEDS: DULOXETINE HCL 30 MG CAPSULE.DR PO SCH (09:00)
[2016-08-25] MEDS: CARVEDILOL 6.25 MG TABLET PO SCH ×2 (09:00→15:32)
--- NOTE | 2016-08-25 10:50 | NUR ---
WOUND CARE CONSULT: PT SEEN BY DR MARTIN FOR RT FOOT. PT AWAITING DEBRIDEMENT. DEFER TO DPM FOR TREATMENT PLAN. DELMIS SCORE CURRENTLY 15. WILL SEE PRN. PT IS CONTINENT AT THIS TIME. MD IN AGREEMENT WITH PLAN OF CARE.
--- NOTE | 2016-08-25 12:30 | NUR ---
MS RN NOTE PATIENT HEADING TO OR FOR RIGHT FOOT WOUND DEBRIDEMENT. PATIENT IS STABLE, VITALS ARE STABLE. NO PAIN AT THIS TIME. NO SOB OR DISTRESS NOTED. NPO. CONSENTS IN CHART
[2016-08-25] MEDS ORDERED: CEFAZOLIN 1 GM VIAL IM SCH (13:00)
[2016-08-25] MEDS: CEFAZOLIN 2 GM in IV NS 0.9% 50 ML IV SCH ×2 (13:00→21:00)
--- NOTE | 2016-08-25 13:34 | NUR ---
MS RN NOTE PATIENT IS BEING TRANSFERRED TO ICU, CHARGE NURSE INFORMED. AWAITING FOR NURSE WHO WILL CONTINUE CARE FOR PATIENT
[2016-08-25] MEDS ORDERED: ALBUTEROL FS 2.5 MG/3 ML VIAL.NEB ONE (13:46)
[2016-08-25] MEDS ORDERED: IPRATROPIUM NEB FS 0.5 MG/2.5 ML AMPUL.NEB ONE (13:47)
--- NOTE | 2016-08-25 13:48 | NUR ---
MEDICATION NOTE ANCEF 2 G SCHEDULED FOR 1300, ALREADY GIVEN IN OR, PER MEDICAL SCIENCE LIAISON.
--- NOTE | 2016-08-25 14:01 | NUR ---
RN NOTE GAVE REPORT TO ICU NURSE AT BEDSIDE. ALL MEDICATIONS GIVEN TO ICU NURSE AND INFORMED CHARGE ALY.
--- NOTE | 2016-08-25 14:05 | NUR ---
ICU/RN PT TRANSFER FROM OR .S/P RIGHT FOOT WOUND DEBRIDEMENT.ON SIMPLE MASK AT 6L .SAT O2-100%.V/S STABLE,AFEBRILE.NO PAIN REPORTED AT THIS TIME.RIGHT LOWER LEG SURGICAL DRESSING CLEAN AND INTACT.PT USE URINAL .BS-118.CONTINUE MONITORING.
[2016-08-25] MEDS: INSULIN REGULAR, HUMAN 100 UNIT/ML 3 ML VIAL SQ PRN ×2 (18:16→21:23)
--- NOTE | 2016-08-25 18:30 | NUR ---
ICU/RN BS-153.DUE MEDS ARE GIVEN ORDERED.V/S STABLE,AFEBRILE.NO PAIN REPORTED AT THIS TIME.PT EATS DINNER 100% FROM HIS MEAL TRAY.OK TRANSFER TO TELE UNIT.NO BED AVAILABLE AT THIS TIME.PT IS MRSA NARES POSITIVE.
--- NOTE | 2016-08-25 19:56 | NUR ---
VIDEO CONFERENCE SPECIALIST DF RECEIVED PT TO ROOM#263 PT A/OX4 CALM,COOPERATIVE. DENIES SOB/CP. PT ON 2LPM N/C O2 SAT OF 97%.PT NSR ON MONITOR AICD UPPER LCW. PT S/P DEBRIDEMENT WITH GRAFT TO RIGHT LOWER LEG.SITE COVERED WITH MINNIE BANDAGE DRESSING C/D/I. PT ADMIT TO ICU POST OP FOR OBSERVATION. PT HAS TRANSFER ORDERS TO [address] [place] [address] BED [phone].
[2016-08-25] MEDS ORDERED: IV NS 0.9% 250 ML IV ONE (20:44)
[2016-08-25] MEDS ORDERED: SECONDARY IV SET 1 EA INFUS.SET MC ONE (20:44)
[2016-08-25] MEDS ORDERED: IV SET PRIMARY PUMP SET 1 EA INFUS.SET MC ONE (20:44)
[2016-08-25] MEDS: MUPIROCIN OINT 2% 22 GM TUBE SCH (21:00)
--- NOTE | 2016-08-25 21:15 | NUR ---
OIL FIRE SPECIALIST DF PT BLOOD GLUCOSE OF 157 ADMIN 2 UNITS REGULAR INSULIN PER SLIDING SCALE ORDERS. PT ENCOURAGED TO HAVE PM SNACK. PT ADMIN ANCEF IVPB. PT WITH TRANSFER ORDERS TO TELE [facility] REPORT CALLED TO [id number] RN. PT AGREES TO TRANSFER. Addendum: 08/25/16 at 2157 by JAMARI DOMINGO RN TRANSFERRED PER ACLS PROTOCOLS VSS NAD NOTED.
[2016-08-25] MEDS: ATORVASTATIN 40 MG TABLET PO SCH (21:19)
--- NOTE | 2016-08-25 21:40 | NUR ---
TELE/RN NOTES RECEIVED PT. FROM ICU VIA JIM. PT. IS AWAKE, ALERT AND ORIENTED X4. BREATHING EVEN AND UNLABORED ON 2LPM O2 VIA NC. NO SOB, RESPIRATORY DISTRESS OR COMPLAINTS OF PAIN NOTED AT THIS TIME. ORIENTED PT. TO ROOM. PLACED EXTERNAL POT PULLER ON PT. CURRENT RHYTHM = V PACING HR 84. PT. WITH RIGHT AC 18 GAUGE IV SALINE LOCK PRESENT, PATENT AND INTACT. PT. IS S/P RIGHT FOOT DEBRIDEMENT 08/25/16. PT. WITH RIGHT LEG AND FOOT POST OP DRESSINGS PRESENT, CLEAN, DRY AND INTACT. NO DRAINAGE OR BLEEDING NOTED. BED IN LOWEST POSITION, CALL LIGHT WITHIN REACH, WILL CONTINUE TO MONITOR.
[2016-08-26] VITALS: BP 126/76
[2016-08-26 04:00] VITALS: BP 111/87
[2016-08-26] MEDS: CEFAZOLIN 2 GM in IV NS 0.9% 50 ML IV SCH ×3 (05:16→21:52)
--- NOTE | 2016-08-26 07:15 | NUR ---
TELE/RN NOTES PT. SITTING UP IN BED. AWAKE, ALERT AND ORIENTED X3. BREATHING EVEN AND UNLABORED ON ROOM AIR. NO SOB, RESPIRATORY DISTRESS OR COMPLAINTS OF PAIN NOTED AT THIS TIME. PT. WITH EXTERNAL PRESCHOOL ADVISER ON PT. CURRENT RHYTHM = V PACING HR 80. PT. WITH RIGHT AC 18 GAUGE IV SALINE LOCK PRESENT, PATENT AND INTACT. PT. WITH RIGHT LEG AND FOOT POST OP DRESSINGS PRESENT, CLEAN, DRY AND INTACT. NO DRAINAGE OR BLEEDING NOTED AT THIS TIME AND THROUGHOUT SHIFT. NO S/S OF HYPO/HYPERGLYCEMIA NOTED AT THIS TIME. PT. REFUSED ACCUCHECK THIS MORNING. EDUCATED PT. ON IMPORTANCE OF GLUCOSE MONITORING AND CONTROL. PT. VERBALIZED UNDERSTANDING AND CONTINUES TO REFUSE. ENDORSED PT. REFUSAL TO DAYSHIFT NURSE. ALL PT. NEEDS MET. BED IN LOWEST POSITION, CALL LIGHT WITHIN REACH, WILL ENDORSE TO DAYSHIFT NURSE FOR CONTINUITY OF CARE.
--- NOTE | 2016-08-26 07:30 | NUR ---
RECEIVED PT. ALERT AND ORIENTED X 3.WANTS TO SMOKE,INFORMED WITH HEART HX WOULD NEED TO GET MD,S PERMISSION.
[2016-08-26 08:00] VITALS: BP 159/74
[2016-08-26] MEDS: PANTOPRAZOLE 40 MG TABLET.DR PO SCH (08:27)
[2016-08-26] MEDS: LEVOTHYROXINE SODIUM 100 MCG TABLET PO SCH (08:27)
[2016-08-26] MEDS: BLOOD SUGAR DIAGNOSTIC 1 EACH STRIP IN SCH ×4 (08:28→22:03)
--- NOTE | 2016-08-26 08:30 | NUR ---
Yamil DILLON BY DR. GALLEGOS TO SMOKE,TAKEN OUTSIDE BY BEAD WIRE TAPER.
[2016-08-26] MEDS ORDERED: FUROSEMIDE 40 MG TABLET PO SCH (09:00)
[2016-08-26] MEDS: CALCIUM CARB 600MG /VIT D 1 EACH TABLET PO SCH (09:12)
[2016-08-26] MEDS: MULTIVITAMINS,THERAGRAN 1 UDTAB TABLET PO SCH (09:12)
[2016-08-26] MEDS: DRONEDARONE HYDROCHLORIDE 400 MG TABLET PO SCH ×2 (09:12→17:58)
[2016-08-26] MEDS: DOCUSATE SODIUM 100 MG CAPSULE PO SCH ×2 (09:14→17:58)
[2016-08-26] MEDS: DULOXETINE HCL 30 MG CAPSULE.DR PO SCH (09:14)
[2016-08-26] MEDS: TAMSULOSIN 0.4 MG CAP.SR.24H PO SCH (09:14)
[2016-08-26] MEDS: ASCORBIC ACID 500 MG TABLET PO SCH (09:14)
[2016-08-26] MEDS: CLOPIDOGREL BISULFATE 75 MG TABLET PO SCH (09:15)
[2016-08-26] MEDS: ASPIRIN 81 MG TAB.CHEW PO SCH (09:15)
[2016-08-26] MEDS: CARVEDILOL 6.25 MG TABLET PO SCH ×2 (09:15→17:00)
[2016-08-26] MEDS: MUPIROCIN OINT 2% 22 GM TUBE SCH (09:16)
[2016-08-26] MEDS: HYDROCODONE/APAP 5/325MG 1 EACH TABLET PO PRN ×2 (09:30→21:51)
--- NOTE | 2016-08-26 09:30 | NUR ---
MEDICATED FOR RT. FOOT PAIN WITH NORCO.
[2016-08-26 12:00] VITALS: BP 122/83
[2016-08-26] MEDS: INSULIN REGULAR, HUMAN 100 UNIT/ML 3 ML VIAL SQ PRN ×2 (12:07→18:18)
--- NOTE | 2016-08-26 13:00 | NUR ---
MAME GONZALEZ- IN TO SEE PT. FOR DR. MARTIN.
[2016-08-26] MEDS: SPIRONOLACTONE 25 MG TABLET PO SCH (13:04)
[2016-08-26] MEDS: LOSARTAN POTASSIUM 25 MG TABLET PO SCH (13:05)
[2016-08-26] MEDS ORDERED: MUPIROCIN OINT 2% 22 GM TUBE SCH (13:39)
--- NOTE | 2016-08-26 14:30 | NUR ---
TAKEN DOWN TO SMOKE AGAIN.
--- NOTE | 2016-08-26 15:00 | NUR ---
DR. JOHNSON IN TO SEE PT.
[2016-08-26 16:00] VITALS: BP 114/72
--- NOTE | 2016-08-26 18:00 | NUR ---
NO CHANGE IN STATUS.
--- NOTE | 2016-08-26 19:20 | NUR ---
RN INITIAL NOTES RECEIVED PATIENT IN BED, AWAKE AND ALERT X4. PATIENT NOT IN ANY DISTRESS, DENIES ANY PAIN AND DISCOMFORT. NO SOB. VPACING ON TELE WITH HR OF 71. ON ROOM AIR, NO DISTRESS. NOTED WITH R AC G20, FLUSHED AND PATENT, NO SIGNS OF INFILTRATION. R LOWER LEG WITH SURGICAL DRESSING INTACT, NO NOTED SOILAGE. PATIENT'S NEEDS ANTICIPATED AND MET. SAFETY AND COMFORT ENSURED. BED IN LOW AND LOCKED POSITION. CALL LIGHT IN REACH. WILL MONITOR.
[2016-08-26 20:00] VITALS: BP 125/79
--- NOTE | 2016-08-26 21:30 | NUR ---
RN NOTES PATIENT REQUESTED TO BE ACCOMPANIED FOR SMOKE BREAK. DISCOURAGED PATIENT WITH SMOKING, HEALTH TEACHING PROVIDED NEEDED, PATIENT VERBALIZED UNDERSTANDING, STATED THAT DOCTORS HAVE TALKED TO HIM, BUT PATIENT STILL INSISTING. PATIENT'S RIGHTS RESPECTED. ASSISTED WITH [id number] TRANSFER, TOLERATED WELL, ASSISTED NEEDED. LUMBER LOADER ACCOMPANIED PATIENT DOWNSTAIRS.
[2016-08-26] MEDS: ATORVASTATIN 40 MG TABLET PO SCH (21:51)
[2016-08-26] MEDS ORDERED: SECONDARY IV SET 1 EA INFUS.SET MC ONE (22:04)
--- NOTE | 2016-08-26 23:00 | NUR ---
RN NOTES HS MEDS GIVEN ORDERED. PATIENT WAS MEDICATED WITH NORCO FOR C/O 8/10 RLE PAIN, WITH GOOD EFFECT FOR THE PATIENT, PATIENT IN BED, ABLE TO SLEEP COMFORTABLY, NO DISTRESS. VPACING ON TELE, HR OR 78.
[2016-08-27] VITALS: BP 107/68
--- NOTE | 2016-08-27 00:39 | NUR ---
RN NOTES PATIENT IN BED, RESTING COMFORTABLY. REPOSITIONED FOR COMFORT. VPACING ON TELE WITH OCCASIONAL PVCs, HR OF 79.
--- NOTE | 2016-08-27 02:35 | NUR ---
RN NOTES PATIENT REMOVED TELE BOX, APPROACHED PATIENT AND EXPLAINED TO PATIENT THE RISKS AND BENEFITS OF USE OF THE TELE MONITORING. PATIENT REFUSES TO REPLACE THE TELE BOX DESPITE EXPLANATION X3. PER PATIENT HE DOES NOT NEED IT. ENCOURAGED PATIENT TO NOTIFY NURSES IMMEDIATELY FOR ANY DISCOMFORT, PATIENT VERBALIZED UNDERSTANDING. PATIENT'S NEEDS ANTICIPATED AND MET. SAFETY AND COMFORT ENSURED. CALL LIGHT IN REACH.
[2016-08-27 04:00] VITALS: BP 125/77
[2016-08-27] MEDS: CEFAZOLIN 2 GM in IV NS 0.9% 50 ML IV SCH (04:47)
[2016-08-27] MEDS: BLOOD SUGAR DIAGNOSTIC 1 EACH STRIP IN SCH (06:32)
[2016-08-27] MEDS: INSULIN REGULAR, HUMAN 100 UNIT/ML 3 ML VIAL SQ PRN (06:34)
[2016-08-27 06:41] LABS: BASOPHILS % (AUTO) 0.2 % (0.0-2.0); EOSINOPHILS # (AUTO) 0.2 /CMM (0.0-0.7); EOSINOPHILS % (AUTO) 4.2 % (0.0-6.0); HEMATOCRIT 26 % (39-51); HEMOGLOBIN 8.4 g/dL (13.5-17.5); LYMPHOCYTES # (AUTO) 1.4 /CMM (0.8-4.8); LYMPHOCYTES % (AUTO) 23.5 % (20.0-44.0); MEAN CORPUSCULAR HEMOGLOBIN 27 PG (26.0-33.0); MEAN CORPUSCULAR HGB CONC 32 g/dl (31.0-36.0); MEAN CORPUSCULAR VOLUME 83 fL (80-96); MONOCYTES # (AUTO) 0.4 /CMM (0.1-1.30); MONOCYTES % (AUTO) 7.3 % (2.0-12.0); NEUTROPHILS # (AUTO) 3.8 /CMM (1.8-8.9); NEUTROPHILS % (AUTO) 64.8 % (43.0-81.0); PLATELET COUNT (AUTO) 153 /CMM (150-450); RDW COEFFICIENT OF VARIATION 16.1 (11.5-15.0); RED BLOOD CELL COUNT(AUTO) 3.14 MIL/uL (4.5-6.0); WHITE BLOOD COUNT (AUTO) 5.8 K/uL (4.3-11.0)
[2016-08-27 06:55] VITALS: BP 145/66
--- NOTE | 2016-08-27 06:55 | NUR ---
RN CLOSING NOTES PATIENT WITH NO ACUTE CHANGE IN CONDITION OBSERVED OVERNIGHT. STILL REFUSES TO USE TELE MONITORING. PATIENT DENIES ANY CHEST DISCOMFORT OR PAIN, NO DISTRESS. ALL DUE MEDS GIVEN ORDERED. AM LABS DRAWN. PATIENT'S NEEDS ANTICIPATED AND MET. SAFETY AND COMFORT ENSURED. BED IN LOW AND LOCKED POSITION. CALL LIGHT IN REACH. WILL ENDORSE ACCORDINGLY FOR CONTINUITY OF CARE.
[2016-08-27 06:56] LABS: CALCIUM, SERUM 8.3 mg/dL (8.5-10.1); CARBON DIOXIDE 26 mmol/L (21-32); CHLORIDE 106 mmol/L (98-107); CREATININE 1.4 mg/dL (0.6-1.3); GLUCOSE 129 mg/dL (74-106); POTASSIUM 4.5 mmol/L (3.5-5.1); SODIUM SERUM 140 mmol/L (136-145); UREA NITROGEN, BLOOD 25 mg/dL (7-18)
--- NOTE | 2016-08-27 07:30 | NUR ---
RN OPENING NOTES RECEIVED PATIENT IN BED RESTING. ALERT AND ORIENTED X3. NO ACUTE DISTRESS NOTED, NO SOB. IV SITE INTACT AND PATENT. KEPT PATIENT SAFE AND COMFORTABLE. BED IN LOW POSITION, CALL LIGHT WITHIN REACH. WILL CONTINUE TO MONITOR.
[2016-08-27 08:00] VITALS: BP 145/66
[2016-08-27] MEDS: PANTOPRAZOLE 40 MG TABLET.DR PO SCH (08:07)
[2016-08-27] MEDS: ASPIRIN 81 MG TAB.CHEW PO SCH (08:08)
[2016-08-27] MEDS: CALCIUM CARB 600MG /VIT D 1 EACH TABLET PO SCH (08:08)
[2016-08-27] MEDS: LEVOTHYROXINE SODIUM 100 MCG TABLET PO SCH (08:08)
[2016-08-27] MEDS: MULTIVITAMINS,THERAGRAN 1 UDTAB TABLET PO SCH (08:08)
[2016-08-27] MEDS: SPIRONOLACTONE 25 MG TABLET PO SCH (08:09)
[2016-08-27] MEDS: DULOXETINE HCL 30 MG CAPSULE.DR PO SCH (08:09)
[2016-08-27] MEDS: TAMSULOSIN 0.4 MG CAP.SR.24H PO SCH (08:10)
[2016-08-27] MEDS: CLOPIDOGREL BISULFATE 75 MG TABLET PO SCH (08:10)
[2016-08-27] MEDS: ASCORBIC ACID 500 MG TABLET PO SCH (08:10)
[2016-08-27] MEDS: DOCUSATE SODIUM 100 MG CAPSULE PO SCH (08:10)
[2016-08-27] MEDS: LOSARTAN POTASSIUM 25 MG TABLET PO SCH (08:11)
[2016-08-27 08:12] VITALS: BP 145/66
[2016-08-27] MEDS: CARVEDILOL 6.25 MG TABLET PO SCH (08:12)
[2016-08-27] MEDS: HYDROCODONE/APAP 5/325MG 1 EACH TABLET PO PRN (08:22)
[2016-08-27] MEDS: DRONEDARONE HYDROCHLORIDE 400 MG TABLET PO SCH (08:27)
[2016-08-27] MEDS ORDERED: CLIN300C97 PO (09:37)
[2016-08-27] MEDS ORDERED: CEPH-570 PO (09:48)
--- NOTE | 2016-08-27 11:40 | NUR ---
DISCHARGE PATIENT IN STABLE CONDITION, VITAL SIGNS WNL, ACCOMPANIED BY AND STEEL MANAGER,DIAMANTE, VIA WHEELCHAIR WITH HOME MEDS. PATIENT REFUSED PICTURES. DISCHARGE TEACHING AND EXITCARE DONE.
== END 2016-08-27 11:49 | disposition home health service (06) | DRG 982 ==
LOC: ER 13:49 → MED 16:10 → ICU 08-25 13:32 → TELE 08-25 21:47
PROVIDERS: ADMIT Nurse Practitioner Acute Care; ATTEND Nurse Practitioner Acute Care
PROC: 0KBV0ZZ Excision of Right Foot Muscle, Open Approach (ICD-10-PCS; 2016-08-25)
PROC: 0HRMXK3 Replacement of Right Foot Skin with Nonautologous Tissue Substitute, Full Thickness, External Approach (ICD-10-PCS; principal; 2016-08-25 12:00)
DX: E11.621 Type 2 diabetes mellitus with foot ulcer (principal); D68.59 Other primary thrombophilia; I13.2 Hypertensive heart and chronic kidney disease with heart failure and with stage 5 chronic kidney disease, or end stage renal disease; E44.0 Moderate protein-calorie malnutrition; Z68.41 Body mass index [BMI] 40.0-44.9, adult; E11.22 Type 2 diabetes mellitus with diabetic chronic kidney disease; D63.8 Anemia in other chronic diseases classified elsewhere; E66.01 Morbid (severe) obesity due to excess calories; N18.5 Chronic kidney disease, stage 5; Z86.73 Personal history of transient ischemic attack (TIA), and cerebral infarction without residual deficits; L97.519 Non-pressure chronic ulcer of other part of right foot with unspecified severity; E03.9 Hypothyroidism, unspecified; E78.5 Hyperlipidemia, unspecified; G47.33 Obstructive sleep apnea (adult) (pediatric); F17.210 Nicotine dependence, cigarettes, uncomplicated; I50.9 Heart failure, unspecified; K21.9 Gastro-esophageal reflux disease without esophagitis; Z95.810 Presence of automatic (implantable) cardiac defibrillator; Z95.5 Presence of coronary angioplasty implant and graft; Z89.612 Acquired absence of left leg above knee; N40.0 Benign prostatic hyperplasia without lower urinary tract symptoms; E11.40 Type 2 diabetes mellitus with diabetic neuropathy, unspecified; Z79.4 Long term (current) use of insulin; I48.0 Paroxysmal atrial fibrillation; Z22.322 Carrier or suspected carrier of Methicillin resistant Staphylococcus aureus; E11.51 Type 2 diabetes mellitus with diabetic peripheral angiopathy without gangrene; I25.10 Atherosclerotic heart disease of native coronary artery without angina pectoris; I49.3 Ventricular premature depolarization; Z91.19 Patient's noncompliance with other medical treatment and regimen; Z79.899 Other long term (current) drug therapy; M19.90 Unspecified osteoarthritis, unspecified site
CPT/HCPCS: 36415; 71010-TC; 73590-TC; 73630-TC; 80048-TC; 80053-TC; 82962-TC; 83735-TC; 84100-TC; 85025-TC; 87070-TC; 87075-TC; 87081-TC; 87186-TC; A4216; A4606; A6402; J0690; J1815; J2001; J2543; J2704; J3370; J7050; J7060; Z7610

== ENCOUNTER 2016-08-29 12:58 | Outpatient (CLI) | payer MEDICARE, BC ==
[~2016-08-29 12:58] MED LIST changes: +CEPH-570 PO
== END 2016-08-29 23:59 | disposition home health service (06) ==
LOC: WOU 12:58
PROVIDERS: ATTEND Podiatrist Foot & Ankle Surgery
DX: E11.621 Type 2 diabetes mellitus with foot ulcer (principal); L97.413 Non-pressure chronic ulcer of right heel and midfoot with necrosis of muscle; L97.511 Non-pressure chronic ulcer of other part of right foot limited to breakdown of skin; I87.2 Venous insufficiency (chronic) (peripheral); L97.811 Non-pressure chronic ulcer of other part of right lower leg limited to breakdown of skin; I89.0 Lymphedema, not elsewhere classified; Z89.612 Acquired absence of left leg above knee; E11.51 Type 2 diabetes mellitus with diabetic peripheral angiopathy without gangrene; Z99.3 Dependence on wheelchair; Z89.421 Acquired absence of other right toe(s); R60.0 Localized edema; I25.10 Atherosclerotic heart disease of native coronary artery without angina pectoris; Z79.4 Long term (current) use of insulin; Z79.84 Long term (current) use of oral hypoglycemic drugs; Z79.82 Long term (current) use of aspirin
CPT/HCPCS: 11042; 11043; 11045; 11046; 87070; A6253; A6402; 87186-TC

== ENCOUNTER 2016-09-01 12:33 | Outpatient (CLI) | payer MEDICARE, BC | END 2016-09-01 23:59 | disposition home health service (06) | LOC: WOU 12:33 | PROVIDERS: ATTEND Podiatrist Foot & Ankle Surgery | DX: E11.621 Type 2 diabetes mellitus with foot ulcer (principal); L97.412 Non-pressure chronic ulcer of right heel and midfoot with fat layer exposed; L97.511 Non-pressure chronic ulcer of other part of right foot limited to breakdown of skin; E11.622 Type 2 diabetes mellitus with other skin ulcer; L97.811 Non-pressure chronic ulcer of other part of right lower leg limited to breakdown of skin; Z89.612 Acquired absence of left leg above knee; E87.2 Acidosis; I89.0 Lymphedema, not elsewhere classified; E11.51 Type 2 diabetes mellitus with diabetic peripheral angiopathy without gangrene; E66.9 Obesity, unspecified; Z99.3 Dependence on wheelchair; Z68.39 Body mass index [BMI] 39.0-39.9, adult; S80.211A Abrasion, right knee, initial encounter; W19.XXXA Unspecified fall, initial encounter; Y92.89 Other specified places as the place of occurrence of the external cause; E11.40 Type 2 diabetes mellitus with diabetic neuropathy, unspecified; Z79.84 Long term (current) use of oral hypoglycemic drugs; Z79.82 Long term (current) use of aspirin | CPT/HCPCS: 11042; 11045; A6253; A6402 ==

== ENCOUNTER 2016-09-05 10:34 | Outpatient (CLI) | payer MEDICARE, BC | END 2016-09-05 23:59 | disposition home health service (06) | LOC: WOU 10:34 | PROVIDERS: ATTEND Podiatrist Foot & Ankle Surgery | DX: E11.621 Type 2 diabetes mellitus with foot ulcer (principal); L97.413 Non-pressure chronic ulcer of right heel and midfoot with necrosis of muscle; L97.511 Non-pressure chronic ulcer of other part of right foot limited to breakdown of skin; E11.622 Type 2 diabetes mellitus with other skin ulcer; L97.919 Non-pressure chronic ulcer of unspecified part of right lower leg with unspecified severity; E11.51 Type 2 diabetes mellitus with diabetic peripheral angiopathy without gangrene; Z89.612 Acquired absence of left leg above knee; G47.30 Sleep apnea, unspecified; Z99.3 Dependence on wheelchair; Z89.421 Acquired absence of other right toe(s); Z72.0 Tobacco use; E66.9 Obesity, unspecified; Z68.39 Body mass index [BMI] 39.0-39.9, adult | CPT/HCPCS: 11042; 11043; 87070; 87075; 87077; 87186 ×2; A6197 ×2; A6253 ×2; A6402 ==

== ENCOUNTER 2016-09-12 13:20 | Outpatient (CLI) | payer MEDICARE, BC | END 2016-09-12 23:59 | disposition home health service (06) | LOC: WOU 13:20 | PROVIDERS: ATTEND Podiatrist Foot & Ankle Surgery | DX: E11.621 Type 2 diabetes mellitus with foot ulcer (principal); L97.413 Non-pressure chronic ulcer of right heel and midfoot with necrosis of muscle; L97.511 Non-pressure chronic ulcer of other part of right foot limited to breakdown of skin; E11.51 Type 2 diabetes mellitus with diabetic peripheral angiopathy without gangrene; Z89.612 Acquired absence of left leg above knee; E66.9 Obesity, unspecified; Z68.39 Body mass index [BMI] 39.0-39.9, adult; I87.2 Venous insufficiency (chronic) (peripheral); G47.30 Sleep apnea, unspecified; Z99.3 Dependence on wheelchair; E11.42 Type 2 diabetes mellitus with diabetic polyneuropathy; I89.0 Lymphedema, not elsewhere classified; R60.0 Localized edema; Z79.82 Long term (current) use of aspirin; Z79.4 Long term (current) use of insulin; Z79.899 Other long term (current) drug therapy | CPT/HCPCS: 11042; 11043; A6253; A6402; A6197 ==

== ENCOUNTER → 2016-09-19 | Outpatient (CLI) | payer MEDICARE, BC | END | disposition home health service (06) | LOC: WOU 12:05 | PROVIDERS: ATTEND Podiatrist Foot & Ankle Surgery | DX: E11.621 Type 2 diabetes mellitus with foot ulcer (principal); L97.413 Non-pressure chronic ulcer of right heel and midfoot with necrosis of muscle; L97.511 Non-pressure chronic ulcer of other part of right foot limited to breakdown of skin; L97.811 Non-pressure chronic ulcer of other part of right lower leg limited to breakdown of skin; Z89.612 Acquired absence of left leg above knee; E11.51 Type 2 diabetes mellitus with diabetic peripheral angiopathy without gangrene; Z89.421 Acquired absence of other right toe(s); F17.210 Nicotine dependence, cigarettes, uncomplicated; E05.00 Thyrotoxicosis with diffuse goiter without thyrotoxic crisis or storm; I25.10 Atherosclerotic heart disease of native coronary artery without angina pectoris; Z95.5 Presence of coronary angioplasty implant and graft; I87.2 Venous insufficiency (chronic) (peripheral); E11.69 Type 2 diabetes mellitus with other specified complication; M86.671 Other chronic osteomyelitis, right ankle and foot; Z79.4 Long term (current) use of insulin; Z79.84 Long term (current) use of oral hypoglycemic drugs; Z79.899 Other long term (current) drug therapy | CPT/HCPCS: 11042; 11043; A6253; A6402 ==

== ENCOUNTER 2016-09-26 11:48 | Outpatient (CLI) | payer MEDICARE, BC | END 2016-09-26 23:59 | disposition home health service (06) | LOC: WOU 11:48 | PROVIDERS: ATTEND Podiatrist Foot & Ankle Surgery | DX: E11.621 Type 2 diabetes mellitus with foot ulcer (principal); L97.412 Non-pressure chronic ulcer of right heel and midfoot with fat layer exposed; L97.511 Non-pressure chronic ulcer of other part of right foot limited to breakdown of skin; Z89.612 Acquired absence of left leg above knee; Z89.421 Acquired absence of other right toe(s); Z99.3 Dependence on wheelchair; E11.51 Type 2 diabetes mellitus with diabetic peripheral angiopathy without gangrene; G47.30 Sleep apnea, unspecified; E66.9 Obesity, unspecified; Z68.39 Body mass index [BMI] 39.0-39.9, adult; Z71.3 Dietary counseling and surveillance; I87.2 Venous insufficiency (chronic) (peripheral); I89.0 Lymphedema, not elsewhere classified; R60.0 Localized edema; Z79.84 Long term (current) use of oral hypoglycemic drugs; Z79.4 Long term (current) use of insulin; Z79.899 Other long term (current) drug therapy | CPT/HCPCS: 11042; 11045; A6253; A6402 ==

== ENCOUNTER 2016-09-29 10:15 | Outpatient (CLI) | payer MEDICARE, BC | END 2016-09-29 23:59 | disposition home health service (06) | LOC: WOU 10:15 | PROVIDERS: ATTEND Podiatrist Foot & Ankle Surgery | DX: E11.621 Type 2 diabetes mellitus with foot ulcer (principal); L97.413 Non-pressure chronic ulcer of right heel and midfoot with necrosis of muscle; L97.511 Non-pressure chronic ulcer of other part of right foot limited to breakdown of skin; L03.115 Cellulitis of right lower limb; Z89.612 Acquired absence of left leg above knee; E11.42 Type 2 diabetes mellitus with diabetic polyneuropathy; R60.0 Localized edema; Z99.3 Dependence on wheelchair; E11.51 Type 2 diabetes mellitus with diabetic peripheral angiopathy without gangrene; F17.210 Nicotine dependence, cigarettes, uncomplicated; E89.0 Postprocedural hypothyroidism; I25.10 Atherosclerotic heart disease of native coronary artery without angina pectoris; Z95.5 Presence of coronary angioplasty implant and graft; E11.69 Type 2 diabetes mellitus with other specified complication; M86.8X7 Other osteomyelitis, ankle and foot; Z79.84 Long term (current) use of oral hypoglycemic drugs; Z79.4 Long term (current) use of insulin; Z79.899 Other long term (current) drug therapy | CPT/HCPCS: 11042; 11043; 87070-TC; 87075-TC; 87186-TC; A6253; A6402 ==

== ENCOUNTER 2016-10-03 09:44 | Outpatient (CLI) | payer MEDICARE, BC | END 2016-10-03 23:59 | disposition home health service (06) | LOC: WOU 09:44 | PROVIDERS: ATTEND Podiatrist Foot & Ankle Surgery | DX: E11.621 Type 2 diabetes mellitus with foot ulcer (principal); L97.414 Non-pressure chronic ulcer of right heel and midfoot with necrosis of bone; Z89.612 Acquired absence of left leg above knee; E11.42 Type 2 diabetes mellitus with diabetic polyneuropathy; R60.0 Localized edema; Z99.3 Dependence on wheelchair; E11.51 Type 2 diabetes mellitus with diabetic peripheral angiopathy without gangrene; F17.210 Nicotine dependence, cigarettes, uncomplicated; E89.0 Postprocedural hypothyroidism; I25.10 Atherosclerotic heart disease of native coronary artery without angina pectoris; Z95.5 Presence of coronary angioplasty implant and graft; E11.69 Type 2 diabetes mellitus with other specified complication; M86.8X7 Other osteomyelitis, ankle and foot; Z79.84 Long term (current) use of oral hypoglycemic drugs; Z79.4 Long term (current) use of insulin; L97.511 Non-pressure chronic ulcer of other part of right foot limited to breakdown of skin | CPT/HCPCS: 11042; 11044; A6253; A6402 ==

== ENCOUNTER 2016-10-06 10:50 | Outpatient (CLI) | payer MEDICARE, BC | END 2016-10-06 23:59 | disposition home health service (06) | LOC: WOU 10:50 | PROVIDERS: ATTEND Podiatrist Foot & Ankle Surgery | DX: E11.621 Type 2 diabetes mellitus with foot ulcer (principal); L97.414 Non-pressure chronic ulcer of right heel and midfoot with necrosis of bone; Z89.612 Acquired absence of left leg above knee; E11.42 Type 2 diabetes mellitus with diabetic polyneuropathy; Z99.3 Dependence on wheelchair; E11.51 Type 2 diabetes mellitus with diabetic peripheral angiopathy without gangrene; F17.210 Nicotine dependence, cigarettes, uncomplicated; E11.69 Type 2 diabetes mellitus with other specified complication; M86.8X7 Other osteomyelitis, ankle and foot; Z79.4 Long term (current) use of insulin; Z79.84 Long term (current) use of oral hypoglycemic drugs; L97.511 Non-pressure chronic ulcer of other part of right foot limited to breakdown of skin; E66.9 Obesity, unspecified; Z68.39 Body mass index [BMI] 39.0-39.9, adult; B96.4 Proteus (mirabilis) (morganii) as the cause of diseases classified elsewhere; B96.89 Other specified bacterial agents as the cause of diseases classified elsewhere | CPT/HCPCS: 11042; 11043; A6253; A6402; J7040 ==

== ENCOUNTER 2016-10-20 10:25 | Outpatient (CLI) | payer MEDICARE, BC | END 2016-10-20 23:59 | disposition home health service (06) | LOC: WOU 10:25 | PROVIDERS: ATTEND Podiatrist Foot & Ankle Surgery | DX: E11.621 Type 2 diabetes mellitus with foot ulcer (principal); L97.513 Non-pressure chronic ulcer of other part of right foot with necrosis of muscle; Z89.612 Acquired absence of left leg above knee; E11.42 Type 2 diabetes mellitus with diabetic polyneuropathy; Z99.3 Dependence on wheelchair; E11.51 Type 2 diabetes mellitus with diabetic peripheral angiopathy without gangrene; F17.210 Nicotine dependence, cigarettes, uncomplicated; Z79.4 Long term (current) use of insulin; Z79.84 Long term (current) use of oral hypoglycemic drugs; E66.9 Obesity, unspecified; Z68.39 Body mass index [BMI] 39.0-39.9, adult; B96.4 Proteus (mirabilis) (morganii) as the cause of diseases classified elsewhere; B96.89 Other specified bacterial agents as the cause of diseases classified elsewhere; S90.111A Contusion of right great toe without damage to nail, initial encounter; X58.XXXA Exposure to other specified factors, initial encounter; Y92.89 Other specified places as the place of occurrence of the external cause | CPT/HCPCS: 10140; 11043; 11046; 87070; 87077; 87186; A6253; A6402 ==

== ENCOUNTER 2016-11-01 11:00 | Outpatient (CLI) | payer MEDICARE, BC | END 2016-11-01 23:59 | disposition home health service (06) | DX: E11.621 Type 2 diabetes mellitus with foot ulcer (principal); E11.622 Type 2 diabetes mellitus with other skin ulcer; S90.111A Contusion of right great toe without damage to nail, initial encounter; X58.XXXA Exposure to other specified factors, initial encounter; Y92.89 Other specified places as the place of occurrence of the external cause; L97.413 Non-pressure chronic ulcer of right heel and midfoot with necrosis of muscle; L97.513 Non-pressure chronic ulcer of other part of right foot with necrosis of muscle; L97.811 Non-pressure chronic ulcer of other part of right lower leg limited to breakdown of skin; Z89.612 Acquired absence of left leg above knee; Z89.421 Acquired absence of other right toe(s); Z99.3 Dependence on wheelchair; E11.51 Type 2 diabetes mellitus with diabetic peripheral angiopathy without gangrene; G47.30 Sleep apnea, unspecified | CPT/HCPCS: 11043; A6253; A6402 ==

== ENCOUNTER 2016-11-01 11:48 | Emergency (ER) | payer MEDICARE, BC ==
[~2016-11-01] VITALS: Ht 177.8 cm; Wt 127.9 kg
--- NOTE | 2016-11-01 11:50 | NUR ---
PT WHEELED FROM WOUND CENTER. C/O SCROTAL SWELLING X 3-4 WEEKS. NO HX OF HERNIA. DENIES PAIN. GOWNED. STABLE VITALS. AWAITING MD HARO.
--- NOTE | 2016-11-01 12:05 | NUR ---
JIMENA NELSON AT BEDSIDE FOR EVAL.
--- NOTE | 2016-11-01 12:23 | NUR ---
PLASTER PATTERNMAKER AT BEDSIDE FOR BLOOD DRAW.
--- NOTE | 2016-11-01 12:30 | NUR ---
PT STILL UNABLE TO PROVIDE URINE SAMPLE AT THIS TIME.
[2016-11-01 12:32] LABS: BASOPHILS % (AUTO) 0.5 % (0.0-2.0); EOSINOPHILS # (AUTO) 0.2 /CMM (0.0-0.7); EOSINOPHILS % (AUTO) 3.5 % (0.0-6.0); HEMATOCRIT 27 % (39-51); HEMOGLOBIN 8.8 g/dL (13.5-17.5); LYMPHOCYTES # (AUTO) 1.5 /CMM (0.8-4.8); LYMPHOCYTES % (AUTO) 22.8 % (20.0-44.0); MEAN CORPUSCULAR HEMOGLOBIN 28 PG (26.0-33.0); MEAN CORPUSCULAR HGB CONC 33 g/dl (31.0-36.0); MEAN CORPUSCULAR VOLUME 85 fL (80-96); MONOCYTES # (AUTO) 0.5 /CMM (0.1-1.30); MONOCYTES % (AUTO) 7.3 % (2.0-12.0); NEUTROPHILS # (AUTO) 4.2 /CMM (1.8-8.9); NEUTROPHILS % (AUTO) 65.9 % (43.0-81.0); PLATELET COUNT (AUTO) 221 /CMM (150-450); RDW COEFFICIENT OF VARIATION 15.6 (11.5-15.0); RED BLOOD CELL COUNT(AUTO) 3.17 MIL/uL (4.5-6.0); WHITE BLOOD COUNT (AUTO) 6.4 K/uL (4.3-11.0)
[2016-11-01 12:43] LABS: CALCIUM, SERUM 8.1 mg/dL (8.5-10.1); CARBON DIOXIDE 30 mmol/L (21-32); CHLORIDE 105 mmol/L (98-107); CREATININE 1.5 mg/dL (0.6-1.3); GLUCOSE 136 mg/dL (74-106); POTASSIUM 4.7 mmol/L (3.5-5.1); SODIUM SERUM 141 mmol/L (136-145); UREA NITROGEN, BLOOD 23 mg/dL (7-18)
[2016-11-01 12:45] LABS: INR 1.06 (0.87-1.13)
--- NOTE | 2016-11-01 12:56 | NUR ---
RADIOLOGY AT BEDSIDE FOR CHEST XRAY.
[2016-11-01 12:59] LABS: ALANINE AMINOTRANSFERASE 16 U/L (12-78); ALBUMIN 3.2 g/dL (3.4-5.0); ALKALINE PHOSPHATASE 84 U/L (46-116); ASPARTATE AMINOTRANSFERASE 12 U/L (15-37); B-TYPE NATRIURETIC PEPTIDE 1544 PG/ML (0-125); BILIRUBIN,DIRECT 0.1 mg/dL (0.0-0.2); BILIRUBIN,TOTAL 0.2 mg/dL (0.2-1.0); TOTAL PROTEIN, SERUM 7.1 g/dL (6.4-8.2)
--- NOTE | 2016-11-01 14:09 | NUR ---
Patient discharged to home in stable condition. Written and verbal after care instructions given. Patient verbalizes understanding of instruction.
[2016-11-01 14:10] VITALS: BP 138/77
== END 2016-11-01 14:10 | disposition home or self-care (01) ==
LOC: ER 11:53
DX: N43.3 Hydrocele, unspecified (principal); R60.1 Generalized edema; N28.9 Disorder of kidney and ureter, unspecified; I11.0 Hypertensive heart disease with heart failure; I50.9 Heart failure, unspecified; E66.01 Morbid (severe) obesity due to excess calories; N50.89 Other specified disorders of the male genital organs; Z79.4 Long term (current) use of insulin; E78.5 Hyperlipidemia, unspecified; E11.65 Type 2 diabetes mellitus with hyperglycemia; E03.9 Hypothyroidism, unspecified; D64.9 Anemia, unspecified; Z79.82 Long term (current) use of aspirin; Z89.612 Acquired absence of left leg above knee; Z95.5 Presence of coronary angioplasty implant and graft; Z95.810 Presence of automatic (implantable) cardiac defibrillator
CPT/HCPCS: 36415; 71010; 76870; 80048; 80076; 83880; 85025; 85730; 99285; A4606; Z7610

== ENCOUNTER 2016-11-28 09:59 | Outpatient (CLI) | payer MEDICARE, BC | END 2016-11-28 23:59 | LOC: WOU 09:59 | PROVIDERS: ATTEND Podiatrist Foot & Ankle Surgery | DX: E11.621 Type 2 diabetes mellitus with foot ulcer (principal); E11.42 Type 2 diabetes mellitus with diabetic polyneuropathy; L97.512 Non-pressure chronic ulcer of other part of right foot with fat layer exposed; Z99.3 Dependence on wheelchair; Z89.612 Acquired absence of left leg above knee; Z89.421 Acquired absence of other right toe(s); G47.33 Obstructive sleep apnea (adult) (pediatric); L97.514 Non-pressure chronic ulcer of other part of right foot with necrosis of bone; M72.6 Necrotizing fasciitis; E11.52 Type 2 diabetes mellitus with diabetic peripheral angiopathy with gangrene | CPT/HCPCS: 11042; A6253; A6402 ==

== ENCOUNTER 2016-12-05 09:55 | Outpatient (CLI) | payer MEDICARE, BC | END 2016-12-05 23:59 | disposition home health service (06) | LOC: WOU 09:55 | PROVIDERS: ATTEND Podiatrist Foot & Ankle Surgery | DX: E11.621 Type 2 diabetes mellitus with foot ulcer (principal); L97.411 Non-pressure chronic ulcer of right heel and midfoot limited to breakdown of skin; L97.511 Non-pressure chronic ulcer of other part of right foot limited to breakdown of skin; Z89.421 Acquired absence of other right toe(s); E11.42 Type 2 diabetes mellitus with diabetic polyneuropathy; I89.0 Lymphedema, not elsewhere classified; Z89.612 Acquired absence of left leg above knee; N50.89 Other specified disorders of the male genital organs; Z99.3 Dependence on wheelchair; E11.51 Type 2 diabetes mellitus with diabetic peripheral angiopathy without gangrene; G47.30 Sleep apnea, unspecified; Z79.84 Long term (current) use of oral hypoglycemic drugs; Z79.82 Long term (current) use of aspirin | CPT/HCPCS: 11042; 82962; A6253; A6402 ==

== ENCOUNTER 2016-12-12 10:08 | Outpatient (CLI) | payer MEDICARE, BC | END 2016-12-12 23:59 | disposition home or self-care (01) | LOC: WOU 10:08 | PROVIDERS: ATTEND Podiatrist Foot & Ankle Surgery | DX: E11.621 Type 2 diabetes mellitus with foot ulcer (principal); L97.416 Non-pressure chronic ulcer of right heel and midfoot with bone involvement without evidence of necrosis; L97.515 Non-pressure chronic ulcer of other part of right foot with muscle involvement without evidence of necrosis; Z89.612 Acquired absence of left leg above knee; E66.9 Obesity, unspecified; Z68.39 Body mass index [BMI] 39.0-39.9, adult; E11.42 Type 2 diabetes mellitus with diabetic polyneuropathy; R60.0 Localized edema; G47.30 Sleep apnea, unspecified; Z89.421 Acquired absence of other right toe(s); E11.51 Type 2 diabetes mellitus with diabetic peripheral angiopathy without gangrene; Z99.3 Dependence on wheelchair; N50.89 Other specified disorders of the male genital organs | CPT/HCPCS: A6253; A6402; G0463 ==

== ENCOUNTER 2016-12-19 09:50 | Outpatient (CLI) | payer MEDICARE, BC | END 2016-12-19 23:59 | LOC: WOU 09:50 | PROVIDERS: ATTEND Podiatrist Foot & Ankle Surgery | DX: E11.621 Type 2 diabetes mellitus with foot ulcer (principal); L97.416 Non-pressure chronic ulcer of right heel and midfoot with bone involvement without evidence of necrosis; L97.515 Non-pressure chronic ulcer of other part of right foot with muscle involvement without evidence of necrosis; E11.622 Type 2 diabetes mellitus with other skin ulcer; L97.819 Non-pressure chronic ulcer of other part of right lower leg with unspecified severity; Z89.612 Acquired absence of left leg above knee; L03.115 Cellulitis of right lower limb; R60.0 Localized edema; T14.8XXA Other injury of unspecified body region, initial encounter; X58.XXXA Exposure to other specified factors, initial encounter; Y92.89 Other specified places as the place of occurrence of the external cause | CPT/HCPCS: A6253; A6402; G0463 ==

== ENCOUNTER 2016-12-19 10:57 | Inpatient (IN) | payer MEDICARE, BC ==
[~2016-12-19] VITALS: Ht 177.8 cm; Wt 149.2 kg
--- NOTE | 2016-12-19 11:00 | NUR ---
PATIENT WAS SENT BY DR SIMENTAL FOR INFECTED RLE WOUND. PATIENT IS AA04. APPEARS IN NO APPARENT DISTRESS. RESPIRATION EVEN AND UNLABORED. SKIN IS WARM TO TOUCH AND NON DIAPHORETIC. AFEBRILE. VSS
[2016-12-19 11:28] LABS: BASOPHILS % (AUTO) 0.6 % (0.0-2.0); EOSINOPHILS # (AUTO) 0.1 /CMM (0.0-0.7); EOSINOPHILS % (AUTO) 1.2 % (0.0-6.0); HEMATOCRIT 26 % (39-51); LYMPHOCYTES # (AUTO) 0.9 /CMM (0.8-4.8); LYMPHOCYTES % (AUTO) 13.9 % (20.0-44.0); MEAN CORPUSCULAR HEMOGLOBIN 25 PG (26.0-33.0); MEAN CORPUSCULAR HGB CONC 32 g/dl (31.0-36.0); MEAN CORPUSCULAR VOLUME 80 fL (80-96); MONOCYTES # (AUTO) 0.3 /CMM (0.1-1.30); MONOCYTES % (AUTO) 5.2 % (2.0-12.0); NEUTROPHILS # (AUTO) 5.1 /CMM (1.8-8.9); NEUTROPHILS % (AUTO) 79.1 % (43.0-81.0); PLATELET COUNT (AUTO) 148 /CMM (150-450); RDW COEFFICIENT OF VARIATION 15.6 (11.5-15.0); RED BLOOD CELL COUNT(AUTO) 3.18 MIL/uL (4.5-6.0); WHITE BLOOD COUNT (AUTO) 6.4 K/uL (4.3-11.0)
[2016-12-19] MEDS ORDERED: PIPERACILLIN /TAZOBACTAM 3.375 G in IV D5W 50 ML IV ONE (11:30)
[2016-12-19] MEDS ORDERED: VANCOMYCIN 1 GM in IV D5W 250 ML IV ONE (11:30)
[2016-12-19] MEDS ORDERED: IV NS 0.9% 1,000 ML BAG IV ONE (11:30)
[2016-12-19 11:42] LABS: INR 1.07 (0.87-1.13); PROTHROMBIN TIME 11.1 SECS (9.5-12.7)
[2016-12-19 11:49] LABS: CALCIUM, SERUM 8.3 mg/dL (8.5-10.1); CARBON DIOXIDE 25 mmol/L (21-32); CHLORIDE 104 mmol/L (98-107); CREATININE 2.1 mg/dL (0.6-1.3); GLUCOSE 160 mg/dL (74-106); POTASSIUM 4.2 mmol/L (3.5-5.1); SODIUM SERUM 136 mmol/L (136-145); UREA NITROGEN, BLOOD 45 mg/dL (7-18)
[2016-12-19] MEDS ORDERED: ONDANSETRON HCL/PF 4 MG/2 ML VIAL IVP PRN (12:00)
[2016-12-19] MEDS ORDERED: Z GUARD REMEDY 2 OZ OINT TP PRN (12:00)
[2016-12-19] MEDS ORDERED: HYDROCODONE/APAP 5/325MG 1 EACH TABLET PO PRN (12:00)
[2016-12-19] MEDS ORDERED: NITROGLYCERIN 0.4 MG/TAB BOTTLE SL PRN (12:00)
[2016-12-19] MEDS ORDERED: BLOOD SUGAR DIAGNOSTIC 1 EACH STRIP IN SCH (12:00)
[2016-12-19] MEDS ORDERED: ZOLPIDEM TARTRATE 5 MG TABLET PO PRN (12:00)
[2016-12-19] MEDS ORDERED: ACETAMINOPHEN 325 MG TABLET PO PRN (12:00)
[2016-12-19] MEDS ORDERED: MAGNESIUM HYDROXIDE 30 ML UDC PO PRN (12:00)
[2016-12-19] MEDS ORDERED: MAG HYDROX/AL HYDROX/SIMETH 30 ML UDC PO PRN (12:00)
[2016-12-19] MEDS ORDERED: DEXTROSE 50%-WATER 50 ML DISP.SYRIN IV PRN (12:00)
[2016-12-19] MEDS ORDERED: BISACODYL SUPP (10 MG) 10 MG/SUPP.RECT SUPP.RECT RC PRN (12:00)
[2016-12-19 12:06] LABS: ALANINE AMINOTRANSFERASE 23 U/L (12-78); ALBUMIN 3.6 g/dL (3.4-5.0); ALKALINE PHOSPHATASE 145 U/L (46-116); ASPARTATE AMINOTRANSFERASE 22 U/L (15-37); BILIRUBIN,DIRECT 0.2 mg/dL (0.0-0.2); BILIRUBIN,TOTAL 0.6 mg/dL (0.2-1.0)
[2016-12-19 12:07] LABS: TROPONIN I 1.117 ng/mL (0.00-0.056)
[2016-12-19] MEDS ORDERED: ASPIRIN 325 MG TABLET ONE (12:19)
[2016-12-19] MEDS ORDERED: ASPIRIN 325 MG TABLET PO ONE (12:30)
--- NOTE | 2016-12-19 12:30 | NUR ---
television announcerinternist medical doctor md notes Admitted a 76 years old male patient who came in with the diagnosis of chest pain and leg wound. Patient is alert and oriented x 4, verbally responsive and able to make needs known. Dr. santana on site and seen the patient and admission orders ordered. skin assessment done and pictures taken and filed in the chart. Vital signs checked and recorded. no complaint of pain or discomfort at this time, nor chest pain. On room air and tolerated well. On tele monitor V pacing heart rate of 73. Kept patient clean and comfortable in bed, call light with in patient reach, will continue to monitor accordingly.
--- NOTE | 2016-12-19 12:46 | NUR ---
PT TRANSPORTED TO [facility]
[2016-12-19] MEDS ORDERED: FUROSEMIDE 40 MG/4 ML VIAL IV ONE (15:00)
[2016-12-19] MEDS ORDERED: BUMETANIDE INJ 8 MG in IV NS 0.9% 48 ML IV ONE (15:30)
[2016-12-19 16:00] VITALS: BP_SYST 99; BP_DIAS 60; BP_DIAS 66
[2016-12-19] MEDS: CARVEDILOL 6.25 MG TABLET PO SCH (16:20)
[2016-12-19] MEDS: DRONEDARONE HYDROCHLORIDE 400 MG TABLET PO SCH (16:20)
[2016-12-19] MEDS: DOCUSATE SODIUM 100 MG CAPSULE PO SCH (16:20)
[2016-12-19] MEDS: BLOOD SUGAR DIAGNOSTIC 1 EACH STRIP VI SCH ×2 (16:21→22:13)
--- NOTE | 2016-12-19 17:00 | NUR ---
telephonic case manager notes Held coreg due to BP 99/66. Will continue to monitor accordingly.
[2016-12-19] MEDS: PIPERACILLIN /TAZOBACTAM 2.25 G in IV D5W 50 ML IV SCH (17:33)
[2016-12-19] MEDS: INSULIN REGULAR, HUMAN 100 UNIT/ML 3 ML VIAL SQ SCH (17:33)
[2016-12-19] MEDS: INSULIN REGULAR, HUMAN 100 UNIT/ML 3 ML VIAL SQ PRN (17:37)
--- NOTE | 2016-12-19 19:12 | NUR ---
television equipment operator closing notes All needs provided, attended, and anticipated. Kept patient clean and comfortable in bed, call light with in patient reach, endorsed to next shift RN to continue care. On tele monitor Afib controlled heart rate of 73.
--- NOTE | 2016-12-19 19:15 | NUR ---
TELE/RN NOTES RECEIVED PT. SITTING UP IN BED. AWAKE, ALERT AND ORIENTED X4. BREATHING EVEN AND UNLABORED ON ROOM AIR. NO SOB, RESPIRATORY DISTRESS OR COMPLAINTS OF PAIN NOTED AT THIS TIME. PT. HAS NO COMPLAINTS OF CHEST PAIN AT THIS TIME. PT. WITH EXTERNAL TACK CUTTER PRESENT AND INTACT CURRENT RHYTHM = VPACING AFIB HR 66. PT. WITH LEFT AC 18 GAUGE PERIPHERAL IV PRESENT, PATENT AND INTACT ADMINISTERING TO PT. BUMEX @ 10ML/HR. BED LOCKED AND IN LOWEST POSITION, SIDE RAILS UP X2, CALL LIGHT WITHIN REACH, WILL CONTINUE TO MONITOR.
[2016-12-19] MEDS: HYDROCODONE/APAP 10/325MG 1 EA TABLET PO PRN (19:17)
[2016-12-19 20:00] VITALS: BP 143/94
[2016-12-19] MEDS: ATORVASTATIN 40 MG TABLET PO SCH (22:13)
[2016-12-20] VITALS (10 sets, daily range): BP systolic 102–126; BP diastolic 61–75
[2016-12-20] MEDS: PIPERACILLIN /TAZOBACTAM 2.25 G in IV D5W 50 ML IV SCH ×4 (00:30→20:40)
--- NOTE | 2016-12-20 06:19 | NUR ---
TELE/RN NOTES PT. IS SITTING UP IN CHAIR. AWAKE, ALERT AND ORIENTED X4. BREATHING EVEN AND UNLABORED ON ROOM AIR. NO SOB, RESPIRATORY DISTRESS OR COMPLAINTS OF PAIN NOTED AT THIS TIME. PT. HAS NO COMPLAINTS OF CHEST PAIN AT THIS TIME. PT. WITH EXTERNAL HIGH SCHOOL LEARNING SUPPORT TEACHER PRESENT AND INTACT CURRENT RHYTHM = AFIB HR 65. PT. WITH LEFT AC 18 GAUGE PERIPHERAL IV PRESENT, PATENT AND INTACT ADMINISTERING TO PT. ZOSYN MEDICATION ORDERED. ALL PT. NEEDS MET. PT. IS PENDING DEBRIDEMENT OF HIS RIGHT FOOT. PT. REFUSING TO GO BACK TO BED AT THIS TIME, PT. WANTS TO STAY SITTING IN THE CHAIR. PLACED CALL LIGHT NEXT TO PT. WITHIN REACH AND INSTRUCTED HIM TO CALL IF HE NEEDS ANYTHING OR WANTS TO BE PLACED BACK IN THE BED. BED LOCKED AND IN LOWEST POSITION, SIDE RAILS UP X2, CALL LIGHT WITHIN REACH, WILL ENDORSE TO DAYSHIFT NURSE FOR CONTINUITY OF CARE.
[2016-12-20] MEDS: BLOOD SUGAR DIAGNOSTIC 1 EACH STRIP VI SCH ×4 (06:45→21:49)
[2016-12-20] MEDS: INSULIN REGULAR, HUMAN 100 UNIT/ML 3 ML VIAL SQ PRN (06:47)
[2016-12-20 06:54] LABS: BASOPHILS % (AUTO) 0.3 % (0.0-2.0); EOSINOPHILS # (AUTO) 0.1 /CMM (0.0-0.7); EOSINOPHILS % (AUTO) 2.4 % (0.0-6.0); HEMATOCRIT 25 % (39-51); HEMOGLOBIN 7.9 g/dL (13.5-17.5); LYMPHOCYTES # (AUTO) 0.9 /CMM (0.8-4.8); LYMPHOCYTES % (AUTO) 16.8 % (20.0-44.0); MEAN CORPUSCULAR HEMOGLOBIN 25 PG (26.0-33.0); MEAN CORPUSCULAR HGB CONC 32 g/dl (31.0-36.0); MEAN CORPUSCULAR VOLUME 80 fL (80-96); MONOCYTES # (AUTO) 0.4 /CMM (0.1-1.30); MONOCYTES % (AUTO) 7.4 % (2.0-12.0); NEUTROPHILS # (AUTO) 4.1 /CMM (1.8-8.9); NEUTROPHILS % (AUTO) 73.1 % (43.0-81.0); PLATELET COUNT (AUTO) 162 /CMM (150-450); RDW COEFFICIENT OF VARIATION 17.1 (11.5-15.0); RED BLOOD CELL COUNT(AUTO) 3.16 MIL/uL (4.5-6.0); WHITE BLOOD COUNT (AUTO) 5.6 K/uL (4.3-11.0)
[2016-12-20 07:08] LABS: ALANINE AMINOTRANSFERASE 27 U/L (12-78); ALBUMIN 3.4 g/dL (3.4-5.0); ALKALINE PHOSPHATASE 120 U/L (46-116); ASPARTATE AMINOTRANSFERASE 15 U/L (15-37); BILIRUBIN,TOTAL 0.5 mg/dL (0.2-1.0); CALCIUM, SERUM 8.4 mg/dL (8.5-10.1); CARBON DIOXIDE 27 mmol/L (21-32); CHLORIDE 106 mmol/L (98-107); CREATININE 1.8 mg/dL (0.6-1.3); GLUCOSE 114 mg/dL (74-106); PHOSPHORUS 4.3 mg/dL (2.5-4.9); POTASSIUM 4.1 mmol/L (3.5-5.1); SODIUM SERUM 142 mmol/L (136-145); TOTAL PROTEIN, SERUM 7.9 g/dL (6.4-8.2); UREA NITROGEN, BLOOD 42 mg/dL (7-18)
--- NOTE | 2016-12-20 07:10 | NUR ---
WATER SYSTEMS DESIGNER OPENING NOTES RECEIVED PATIENT IN STABLE CONDITION. PATIENT IS ALERT. IN NO APPARENT DISTRESS. PATIENT IS RESTING ON CHAIR. CALL LIGHT IS WITHIN REACH. WILL CONTINUE TO MONITOR.
[2016-12-20 07:14] LABS: TROPONIN I 0.874 ng/mL (0.00-0.056)
[2016-12-20] MEDS: INSULIN REGULAR, HUMAN 100 UNIT/ML 3 ML VIAL SQ SCH ×3 (08:00→18:33)
[2016-12-20] MEDS: CALCIUM CARB 600MG /VIT D 1 EACH TABLET PO SCH (08:31)
[2016-12-20] MEDS: CARVEDILOL 6.25 MG TABLET PO SCH ×2 (08:31→18:21)
[2016-12-20] MEDS: DOCUSATE SODIUM 100 MG CAPSULE PO SCH ×2 (08:31→18:21)
[2016-12-20] MEDS: LEVOTHYROXINE SODIUM 100 MCG TABLET PO SCH (08:31)
[2016-12-20] MEDS: ASPIRIN 325 MG TABLET PO SCH (08:31)
--- NOTE | 2016-12-20 08:31 | NUR ---
WOUND CARE CONSULT: PT PRESENTS WITH LEFT LEG AMPUTATION STUMP WHICH IS INTACT AND ULCERS TO RT LOWER LEG AND PLANTAR FOOT, PRESENT ON ADMISSION. PT ABLE TO ASSIST WITH TURNING AND REPOSITIONING IN BED. PT ON BARIMAX BED WITH ETS AIR. ALL SKIN PROTECTION AND WOUND RECOMMENDATIONS DISCUSSED WITH NURSING STAFF. DR MARTIN FOLLOWING PT FOR RT LOWER EXTREMITY. WILL SEE PRN. WIGGINS IN AGREEMENT WITH PLAN OF CARE. Addendum: 12/20/16 at 0843 by LU LUZ WNDNU Amended: Links added.
[2016-12-20] MEDS: ZINC SULFATE 220 MG CAPSULE PO SCH (08:32)
[2016-12-20] MEDS: LOSARTAN POTASSIUM 25 MG TABLET PO SCH (08:32)
[2016-12-20] MEDS: SPIRONOLACTONE 25 MG TABLET PO SCH (08:41)
[2016-12-20] MEDS: TAMSULOSIN 0.4 MG CAP.SR.24H PO SCH (08:54)
[2016-12-20] MEDS: DULOXETINE HCL 30 MG CAPSULE.DR PO SCH (08:54)
[2016-12-20] MEDS: ASCORBIC ACID 500 MG TABLET PO SCH (08:55)
[2016-12-20] MEDS: MULTIVITAMINS,THERAGRAN 1 UDTAB TABLET PO SCH (09:00)
[2016-12-20] MEDS ORDERED: BUMETANIDE INJ 8 MG in IV NS 0.9% 48 ML IV ONE (09:00)
[2016-12-20] MEDS: DAKINS QUARTER STRENGTH (0.125%) 480 ML BOTTLE TOP SCH (09:01)
[2016-12-20] MEDS: CADEXOMER IODINE 40 GM TUBE TP SCH (09:01)
[2016-12-20] MEDS: DRONEDARONE HYDROCHLORIDE 400 MG TABLET PO SCH ×2 (09:02→18:22)
[2016-12-20] MEDS: INSULIN DETEMIR 100 UNIT/ML CARTRIDGE SQ SCH (09:52)
--- NOTE | 2016-12-20 10:00 | NUR ---
WOUND DEBRIDEMENT PROCEDURE PERFORMED.
[2016-12-20] MEDS: *INSULIN REGULAR(HUMULIN R)HUM 100 UNIT/ML VIAL SQ PRN ×2 (12:55→21:51)
--- NOTE | 2016-12-20 13:00 | NUR ---
MS RN NOTES INSULIN 10 UNIT NOT ADMINISTERED. GAVE 3 UNITS OF INSULIN PER SLIDING SCALE.
--- NOTE | 2016-12-20 13:50 | NUR ---
CONTACTED DR MARTIN IN REGARDS TO PATIENTS WOUND DEBRIDEMENT DRESSING. PATIENT CONTINUES TO SATURATE DRESSING. PATIENT WAS INSTRUCTED TO KEEP FEET ELEVATED AND NOT APPLY PRESSURE ON THE FOOT. TYPE AND SCREEN ORDERED AND CBC STAT. GIVEN ORDER TO CHANGE DRESSING.
--- NOTE | 2016-12-20 14:42 | NUR ---
APPLIED PRESSURE DRESSING ON PATIENTS FOOT. WILL CONTINUE TO MONITOR FOR BLEEDING.
[2016-12-20] MEDS ORDERED: CELLULOSE,OXIDIZED 1 EACH EACH MC ONE (15:00)
[2016-12-20 15:30] LABS: BASOPHILS % (AUTO) 0.3 % (0.0-2.0); EOSINOPHILS # (AUTO) 0.1 /CMM (0.0-0.7); EOSINOPHILS % (AUTO) 2.1 % (0.0-6.0); HEMATOCRIT 24 % (39-51); HEMOGLOBIN 7.6 g/dL (13.5-17.5); LYMPHOCYTES # (AUTO) 0.9 /CMM (0.8-4.8); LYMPHOCYTES % (AUTO) 18.3 % (20.0-44.0); MEAN CORPUSCULAR HEMOGLOBIN 26 PG (26.0-33.0); MEAN CORPUSCULAR HGB CONC 32 g/dl (31.0-36.0); MEAN CORPUSCULAR VOLUME 80 fL (80-96); MONOCYTES # (AUTO) 0.3 /CMM (0.1-1.30); MONOCYTES % (AUTO) 6.2 % (2.0-12.0); NEUTROPHILS # (AUTO) 3.7 /CMM (1.8-8.9); NEUTROPHILS % (AUTO) 73.1 % (43.0-81.0); PLATELET COUNT (AUTO) 145 /CMM (150-450); RED BLOOD CELL COUNT(AUTO) 2.96 MIL/uL (4.5-6.0); WHITE BLOOD COUNT (AUTO) 5.1 K/uL (4.3-11.0)
[2016-12-20] MEDS ORDERED: CELLULOSE,OXIDIZED 1 EA PACK MC ONE (16:00)
--- NOTE | 2016-12-20 16:30 | NUR ---
BLOOD TRANSFUSION IS READY FOR PICKUP. ATTEMPTED TO START IV. WAITING FOR AN ALTERNATE NURSE TO START IV.
--- NOTE | 2016-12-20 17:10 | NUR ---
STARTED BLOOD TRANSFUSION. 1 UNIT OF PACKED RED BLOOD CELLS.
[2016-12-20] MEDS ORDERED: FEE PK DOSING 1 MIN EA MC ONE (18:33)
--- NOTE | 2016-12-20 18:51 | NUR ---
MS RN CLOSING NOTES PATIENT IS IN NO APPARENT DISTRESS. RECEIVING A BLOOD TRANSFUSION. CALL LIGHT IS WITHIN REACH. BED IS LOCKED AND LOWERED. BEDSIDE RAILS ARE UP X2. WILL ENDORSE CARE TO CREAM DIPPER NURSE FOR CRYSTAL.
--- NOTE | 2016-12-20 19:15 | NUR ---
MS/RN NOTES RECEIVED PT. LYING IN BED. AWAKE, ALERT AND ORIENTED X4. BREATHING EVEN AND UNLABORED ON ROOM AIR. NO SOB, RESPIRATORY DISTRESS OR COMPLAINTS OF PAIN NOTED AT THIS TIME. PT. WITH LEFT HAND 20 GAUGE PERIPHERAL IV PRESENT, PATENT AND INTACT ADMINISTERING TO PT. 1 UNIT PRBC'S. PER DAYSHIFT NURSE PT. TOLERATING TRANSFUSION WELL WITH STABLE VITAL SIGNS AND NO ADVERSE REACTIONS NOTED. PT. WITH RIGHT FOOT PRESSURE DRESSING PRESENT AND INTACT. NO BLEEDING OR DRAINAGE NOTED AT THIS TIME. PER DAYSHIFT NURSE PT. HAS NOT FINISHED RECEIVING BUMEX MEDICATION OR SCHEDULED 1800 ZOSYN DUE TO BLOOD TRANSFUSION. WILL ADMINISTER TO PT. MEDICATIONS ORDERED. BED LOCKED AND IN LOWEST POSITION, SIDE RAILS UP X2, CALL LIGHT WITHIN REACH, WILL CONTINUE TO MONITOR.
[2016-12-20] MEDS: VANCOMYCIN 1.25 GM in IV D5W 500 ML IV SCH (21:23)
[2016-12-20] MEDS: ATORVASTATIN 40 MG TABLET PO SCH (21:48)
--- NOTE | 2016-12-21 | NUR ---
MS/RN NOTES PT. IS LYING IN BED RESTING. BREATHING EVEN AND UNLABORED ON ROOM AIR. NO SOB, RESPIRATORY DISTRESS OT COMPLAINTS OF PAIN NOTED AT THIS TIME. GAVE REPORT AND ENDORSED PT. TO SHARON FUENTES FOR CONTINUITY OF CARE.
[2016-12-21] MEDS: HYDROCODONE/APAP 10/325MG 1 EA TABLET PO PRN ×2 (00:16→10:13)
--- NOTE | 2016-12-21 00:20 | NUR ---
MS SHARON INITIAL NOTES GOT REPORT FROM NURSE CRISTHIAN/RN FOR CONTINUITY OF CARE. PT COMPLAINT OF PAIN 8/10 ON HIS RIGHT FOOT, NORCO 10/325 GIVEN ORDERED. IVF STILL INFUSING. WILL CONTINUE TO MONITOR. PLACE CALL LIGHT AT REACH.
[2016-12-21] MEDS: PIPERACILLIN /TAZOBACTAM 2.25 G in IV D5W 50 ML IV SCH ×4 (01:25→17:22)
[2016-12-21] MEDS: BLOOD SUGAR DIAGNOSTIC 1 EACH STRIP VI SCH ×4 (06:18→22:31)
[2016-12-21] MEDS: INSULIN REGULAR, HUMAN 100 UNIT/ML 3 ML VIAL SQ PRN (06:21)
[2016-12-21 06:31] LABS: BASOPHILS % (AUTO) 0.5 % (0.0-2.0); EOSINOPHILS # (AUTO) 0.1 /CMM (0.0-0.7); EOSINOPHILS % (AUTO) 1.7 % (0.0-6.0); HEMATOCRIT 24 % (39-51); HEMOGLOBIN 7.9 g/dL (13.5-17.5); LYMPHOCYTES # (AUTO) 1.2 /CMM (0.8-4.8); LYMPHOCYTES % (AUTO) 20.6 % (20.0-44.0); MEAN CORPUSCULAR HEMOGLOBIN 26 PG (26.0-33.0); MEAN CORPUSCULAR HGB CONC 33 g/dl (31.0-36.0); MEAN CORPUSCULAR VOLUME 80 fL (80-96); MONOCYTES # (AUTO) 0.5 /CMM (0.1-1.30); MONOCYTES % (AUTO) 8.3 % (2.0-12.0); NEUTROPHILS # (AUTO) 4.1 /CMM (1.8-8.9); NEUTROPHILS % (AUTO) 68.9 % (43.0-81.0); PLATELET COUNT (AUTO) 150 /CMM (150-450); RDW COEFFICIENT OF VARIATION 17.3 (11.5-15.0); RED BLOOD CELL COUNT(AUTO) 3.04 MIL/uL (4.5-6.0)
[2016-12-21 06:45] LABS: ALANINE AMINOTRANSFERASE 20 U/L (12-78); ALKALINE PHOSPHATASE 100 U/L (46-116); ASPARTATE AMINOTRANSFERASE 12 U/L (15-37); BILIRUBIN,TOTAL 0.7 mg/dL (0.2-1.0); CALCIUM, SERUM 8.1 mg/dL (8.5-10.1); CARBON DIOXIDE 30 mmol/L (21-32); CHLORIDE 106 mmol/L (98-107); CREATININE 1.6 mg/dL (0.6-1.3); GLUCOSE 154 mg/dL (74-106); MAGNESIUM 1.8 mg/dL (1.8-2.4); PHOSPHORUS 3.8 mg/dL (2.5-4.9); POTASSIUM 3.7 mmol/L (3.5-5.1); SODIUM SERUM 142 mmol/L (136-145); TOTAL PROTEIN, SERUM 7.1 g/dL (6.4-8.2); UREA NITROGEN, BLOOD 38 mg/dL (7-18)
--- NOTE | 2016-12-21 06:56 | NUR ---
MS LIVING SKILLS ADVISOR CLOSING NOTES BLOOD SUGAR 145 2 UNITS OF INSULIN GIVEN LOURDES SQ ORDERED. NO SIGNS OF HYPO /HYPER GLYCEMIA NOTED. STABLE LOURDES THE NIGHT AND NO BLEEDING NOTED. SLEEP WELL AFTER PAIN MEDS GIVEN. MORNING CARE DONE AND AND ALL DUE MEDS. KEPT HIM WARM AND COMFORTABLE AT ALL TIMES. PLACE CALL LIGHT AT REACH. WILL ENDORSE TO AM NURSE FOR CONTINUITY OF CARE.
--- NOTE | 2016-12-21 07:34 | NUR ---
MS RN: INITIAL NOTE RECEIVED PT A/OX4. NO DISTRESS. NO SOB NOTED. NO PAIN NOTED. SATING AT 95% ON ROM AIR. CONTENT AND USES URINAL. R FOOT ULCER POST DEBRIDEMENT WITH DRESSING INTACT. ORDERED NOT TO REMOVE DRESSING. L HAND #20. NO IV FLUIDS RUNNING. SITE CLEAR AND PATENT. AWAITING MIDLINE INSERTION. ON CONTACT ISOLATION FOR MRSA OF WOUND. RESTING COMFORTABLY IN BED. CALL LIGHT WITHIN REACH.
[2016-12-21 07:50] LABS: TROPONIN I 0.627 ng/mL (0.00-0.056)
[2016-12-21 08:00] VITALS: BP 122/66
[2016-12-21] MEDS: DOCUSATE SODIUM 100 MG CAPSULE PO SCH ×2 (08:17→17:22)
[2016-12-21] MEDS: LEVOTHYROXINE SODIUM 100 MCG TABLET PO SCH (08:17)
[2016-12-21] MEDS: CARVEDILOL 6.25 MG TABLET PO SCH ×2 (08:18→17:00)
[2016-12-21] MEDS: DULOXETINE HCL 30 MG CAPSULE.DR PO SCH (08:18)
[2016-12-21] MEDS: DRONEDARONE HYDROCHLORIDE 400 MG TABLET PO SCH ×2 (08:18→17:22)
[2016-12-21] MEDS: ASCORBIC ACID 500 MG TABLET PO SCH (08:18)
[2016-12-21] MEDS: SPIRONOLACTONE 25 MG TABLET PO SCH (08:18)
[2016-12-21] MEDS: TAMSULOSIN 0.4 MG CAP.SR.24H PO SCH (08:18)
[2016-12-21] MEDS: CALCIUM CARB 600MG /VIT D 1 EACH TABLET PO SCH (08:18)
[2016-12-21] MEDS: MULTIVITAMINS,THERAGRAN 1 UDTAB TABLET PO SCH (08:18)
[2016-12-21] MEDS: ZINC SULFATE 220 MG CAPSULE PO SCH (08:18)
[2016-12-21] MEDS: ASPIRIN 325 MG TABLET PO SCH (08:19)
[2016-12-21] MEDS: CADEXOMER IODINE 40 GM TUBE TP SCH (08:19)
[2016-12-21] MEDS: DAKINS QUARTER STRENGTH (0.125%) 480 ML BOTTLE TOP SCH (08:19)
[2016-12-21] MEDS: LOSARTAN POTASSIUM 25 MG TABLET PO SCH (08:19)
[2016-12-21] MEDS: INSULIN DETEMIR 100 UNIT/ML CARTRIDGE SQ SCH (08:34)
[2016-12-21] MEDS: INSULIN REGULAR, HUMAN 100 UNIT/ML 3 ML VIAL SQ SCH ×3 (08:35→17:29)
--- NOTE | 2016-12-21 08:38 | NUR ---
HELD LEVEMIR 35UNITS DUE TO BLOOD SUGAR AT 125 AFTER EATING. SPOKE TO MD IBRAHIM. STATED TO HOLD AND GIVE ONLY REGULAR INSULIN 10UNITS ORDERED.
[2016-12-21] MEDS ORDERED: BUMETANIDE INJ 16 MG in IV NS 0.9% 16 ML IV ONE (09:00)
[2016-12-21] MEDS ORDERED: FUROSEMIDE 40 MG TABLET PO SCH (09:00)
--- NOTE | 2016-12-21 10:00 | NUR ---
PRESSURE DRESSING IN PLACE. ORDERED BY MD TO NOT REMOVE.
[2016-12-21 16:00] VITALS: BP 114/64
--- NOTE | 2016-12-21 16:06 | NUR ---
DRESSING CHANGED BY SHARON CHONG SENT BY . NEW PRESSURE DRESSING IN PLACE. OLD DRESSING HAD DRY BLOOD. NO OTHER DISCHARGE NOTED. NO PAIN NOTED. RESTING COMFORTABLY IN BED.
--- NOTE | 2016-12-21 17:30 | NUR ---
BLOOD GLUCOSE 88. NO INSULIN ADMINISTERED. PT HAS NO S/S OF HYPOGLYCEMIA.
--- NOTE | 2016-12-21 18:35 | NUR ---
MS RN: CLOSING NOTE PT A/OX4. TOOK ALL MEDICATIONS ON TIME. NO ADVERSE REACTIONS NOTED. NO PAIN NOTED. NO SOB NOTED. CONTINENT. BSC IN PLACE. NEEDS ASSISTANCE WITH TRANSFER TO BSC. R FOOT ULCER PRESSURE DRESSING CHANGED BY ARLETTE (CLEANER AND POLISHER) PER MD CORDERO ORDERS. L HAND IV SL. KEVEN MIDLINE SL. ALL SITES CLEAR AND PATENT. DRESSING INTACT. BUMEX IV ORDERED IN AM- OUTPUT = 2200. ON CONTACT ISOLATION FOR MRSA OF WOUND. RESTING COMFORTABLY IN BED. CALL LIGHT WITHIN REACH.
[2016-12-21 20:00] VITALS: BP 120/62
--- NOTE | 2016-12-21 20:00 | NUR ---
RN NOTES RECEIVED PATIENT AWAKE SITTING AT THE EDGE OF THE BED WITH NO RESPIRATORY DISTRESS OR SHORTNESS OF BREATH. BREATHING EVEN AND UNLABORED. ALERT AND ORIENTED. VERBALLY ABLE TO COMMUNICATE NEEDS. IV LINE TO LEFT WRIST, PATENT AND INTACT. CONTINENT OF BOWEL AND BLADDER FUNCTION. USES URINAL. WILL CONTINUE TO MONITOR
[2016-12-21] MEDS: VANCOMYCIN 1.25 GM in IV D5W 500 ML IV SCH (20:19)
[2016-12-21] MEDS: ATORVASTATIN 40 MG TABLET PO SCH (22:25)
[2016-12-21] MEDS: *INSULIN REGULAR(HUMULIN R)HUM 100 UNIT/ML VIAL SQ PRN (22:35)
[2016-12-22] MEDS: PIPERACILLIN /TAZOBACTAM 2.25 G in IV D5W 50 ML IV SCH ×3 (00:49→12:44)
[2016-12-22] MEDS: BLOOD SUGAR DIAGNOSTIC 1 EACH STRIP VI SCH ×3 (06:34→17:31)
[2016-12-22] MEDS: *INSULIN REGULAR(HUMULIN R)HUM 100 UNIT/ML VIAL SQ PRN (06:38)
--- NOTE | 2016-12-22 06:47 | NUR ---
RN CLOSING NOTES NO SIGNIFICANT CHANGE OF CONDITION. NO DISTRESS NOTED. KEPT CLEAN AND DRY. WILL ENDORSE TO AM SHIFT FOR CONTINUITY OF CARE.
--- NOTE | 2016-12-22 07:05 | NUR ---
MS RN OPENING NOTES RECEIVED PT FROM NIGHTSHIFT NURSE IN STABLE CONDITION. PT IS A/O X4. NO SOB OR SIGNS OF DISTRESS NOTED. BREATHING IS EVEN AND UNLABORED. PT DENIES ANY PAIN AT THIS TIME. MIDLINE NOTED ON RIGHT UPPER ARM AND A PERIPHERAL IV ON RIGHT HAND 22G. IV IS PATENT AND INTACT. NO REDNESS OR SIGNS OF INFILTRATION NOTED. RIGHT LOWER EXTREMITY DRESSING DRY, CLEAN, AND INTACT. BED IN LOW LOCKED POSITION, SIDE RAILS UP X2, CALL LIGHT WITHIN REACH. WILL CONTINUE TO MONITOR
[2016-12-22 07:09] LABS: CALCIUM, SERUM 8.6 mg/dL (8.5-10.1); CARBON DIOXIDE 33 mmol/L (21-32); CHLORIDE 107 mmol/L (98-107); CREATININE 1.7 mg/dL (0.6-1.3); GLUCOSE 130 mg/dL (74-106); POTASSIUM 3.8 mmol/L (3.5-5.1); SODIUM SERUM 149 mmol/L (136-145); UREA NITROGEN, BLOOD 33 mg/dL (7-18)
[2016-12-22 08:00] VITALS: BP 112/71
[2016-12-22] MEDS: TAMSULOSIN 0.4 MG CAP.SR.24H PO SCH (09:12)
[2016-12-22] MEDS: DAKINS QUARTER STRENGTH (0.125%) 480 ML BOTTLE TOP SCH (09:12)
[2016-12-22] MEDS: CADEXOMER IODINE 40 GM TUBE TP SCH (09:12)
[2016-12-22] MEDS: ZINC SULFATE 220 MG CAPSULE PO SCH (09:13)
[2016-12-22] MEDS: DULOXETINE HCL 30 MG CAPSULE.DR PO SCH (09:14)
[2016-12-22] MEDS: MULTIVITAMINS,THERAGRAN 1 UDTAB TABLET PO SCH (09:14)
[2016-12-22] MEDS: SPIRONOLACTONE 25 MG TABLET PO SCH (09:14)
[2016-12-22] MEDS: ASCORBIC ACID 500 MG TABLET PO SCH (09:14)
[2016-12-22] MEDS: ASPIRIN 325 MG TABLET PO SCH (09:14)
[2016-12-22] MEDS: LOSARTAN POTASSIUM 25 MG TABLET PO SCH (09:14)
[2016-12-22] MEDS: CALCIUM CARB 600MG /VIT D 1 EACH TABLET PO SCH (09:14)
[2016-12-22] MEDS: DRONEDARONE HYDROCHLORIDE 400 MG TABLET PO SCH ×2 (09:15→17:28)
[2016-12-22] MEDS: CARVEDILOL 6.25 MG TABLET PO SCH ×2 (09:15→17:00)
[2016-12-22] MEDS: DOCUSATE SODIUM 100 MG CAPSULE PO SCH ×2 (09:15→17:00)
[2016-12-22] MEDS: LEVOTHYROXINE SODIUM 100 MCG TABLET PO SCH (09:15)
[2016-12-22] MEDS: INSULIN DETEMIR 100 UNIT/ML CARTRIDGE SQ SCH (09:19)
[2016-12-22] MEDS: INSULIN REGULAR, HUMAN 100 UNIT/ML 3 ML VIAL SQ SCH ×3 (09:19→17:51)
[2016-12-22 12:09] LABS: IRON, SERUM 28 ug/dl (50-175); TOTAL IRON BINDING CAPACITY 302 ug/dl (250-450)
[2016-12-22 16:00] VITALS: BP 111/69
[2016-12-22 17:00] VITALS: BP 109/67
--- NOTE | 2016-12-22 17:58 | NUR ---
MS SHADOWGRAPH OPERATOR NOTES PT WAS DISCHARGE FROM FACILITY IN STABLE CONDITION. ALL NEEDS WERE MET DURING SHIFT AND ORDERS CARRIED OUT ACCORDINGLY. ALL DISCHARGE INSTRUCTIONS DISCUSSED WITH PT AND JOSE THE RECEIVING NURSE. PT VERBALIZED UNDERSTANDING OF DISCHARGE INSTRUCTIONS AND SIGNED ALL PAPERWORK. HE LEFT WITH ALL BELONGINGS IN HAND. JOSE WAS NOTIFIED THAT PT IS ISOLATED FOR MRSA OF THE WOUND. SHE WAS ALSO NOTIFIED THAT HIS MIDLINE HAS MALFUNCTIONED AND WILL BE REMOVED. HE WILL BE LEAVING WITH HIS PERIPHERAL IV ON THE RIGHT HAND 22G. IC IS PATENT AND INTACT. NO REDNESS OR SIGNS OF INFILTRATION NOTED UPON DISCHARGE. PICTURES OF IV SITE TAKEN AND PLACED IN PT'S CHART. PT WAS SAFELY TRANSFERRED FROM BED TO [facility]UL[facility] AND LEFT THE HOSPITAL IN STABLE CONDITION
== END 2016-12-22 18:15 | DRG 622 ==
LOC: ER 11:01 → TELE 12:42 → MED 12-20 08:48
PROVIDERS: ADMIT Internal Medicine; ATTEND Internal Medicine
PROC: 0JBN0ZZ Excision of Right Lower Leg Subcutaneous Tissue and Fascia, Open Approach (ICD-10-PCS; principal; 2016-12-20)
PROC: 0KBV0ZZ Excision of Right Foot Muscle, Open Approach (ICD-10-PCS; 2016-12-20)
PROC: 05H533Z Insertion of Infusion Device into Right Subclavian Vein, Percutaneous Approach (ICD-10-PCS; 2016-12-21)
PROC: B546ZZA Ultrasonography of Right Subclavian Vein, Guidance (ICD-10-PCS; 2016-12-21)
PROC: 0KBV0ZZ Excision of Right Foot Muscle, Open Approach (ICD-10-PCS; 2016-12-22)
PROC: 0JBN0ZZ Excision of Right Lower Leg Subcutaneous Tissue and Fascia, Open Approach (ICD-10-PCS; 2016-12-22)
DX: E11.621 Type 2 diabetes mellitus with foot ulcer (principal); E43 Unspecified severe protein-calorie malnutrition; L97.518 Non-pressure chronic ulcer of other part of right foot with other specified severity; L97.219 Non-pressure chronic ulcer of right calf with unspecified severity; I21.4 Non-ST elevation (NSTEMI) myocardial infarction; N17.9 Acute kidney failure, unspecified; I13.2 Hypertensive heart and chronic kidney disease with heart failure and with stage 5 chronic kidney disease, or end stage renal disease; E11.22 Type 2 diabetes mellitus with diabetic chronic kidney disease; D68.59 Other primary thrombophilia; E11.40 Type 2 diabetes mellitus with diabetic neuropathy, unspecified; I50.23 Acute on chronic systolic (congestive) heart failure; L03.115 Cellulitis of right lower limb; Z68.42 Body mass index [BMI] 45.0-49.9, adult; N18.5 Chronic kidney disease, stage 5; E66.01 Morbid (severe) obesity due to excess calories; F17.210 Nicotine dependence, cigarettes, uncomplicated; Z86.73 Personal history of transient ischemic attack (TIA), and cerebral infarction without residual deficits; K21.9 Gastro-esophageal reflux disease without esophagitis; E03.9 Hypothyroidism, unspecified; E11.51 Type 2 diabetes mellitus with diabetic peripheral angiopathy without gangrene; I25.10 Atherosclerotic heart disease of native coronary artery without angina pectoris; E78.5 Hyperlipidemia, unspecified; I25.2 Old myocardial infarction; D63.8 Anemia in other chronic diseases classified elsewhere; Z79.4 Long term (current) use of insulin; Z95.1 Presence of aortocoronary bypass graft; Z95.810 Presence of automatic (implantable) cardiac defibrillator; Z89.612 Acquired absence of left leg above knee; Z91.19 Patient's noncompliance with other medical treatment and regimen; G47.33 Obstructive sleep apnea (adult) (pediatric); Z86.14 Personal history of Methicillin resistant Staphylococcus aureus infection; Z98.61 Coronary angioplasty status; Z79.899 Other long term (current) drug therapy
CPT/HCPCS: 36415; 36569; 71010-TC; 80048-TC; 80053-TC; 80076-TC; 82962-TC; 83540-TC; 83605-TC; 83735-TC; 84100-TC; 84484-TC; 85025-TC; 85652-TC; 85730-TC; 86140-TC; 86850-TC; 86921-TC; 87040-TC; 87070-TC; 87081-TC; 87186-TC; 93307-TC; A4216; A4217; A4606; A6253; A6402; A6403; A6407; J1815; J1940; J2543; J3370; J3490; J7030; J7050; J7060; P9016-BL; Z7610

== ENCOUNTER 2016-12-29 10:20 | Outpatient (CLI) | payer MEDICARE, BC | END 2016-12-29 23:59 | disposition home or self-care (01) | LOC: WOU 10:20 | PROVIDERS: ATTEND Podiatrist Foot & Ankle Surgery | DX: E11.621 Type 2 diabetes mellitus with foot ulcer (principal); L97.411 Non-pressure chronic ulcer of right heel and midfoot limited to breakdown of skin; E11.622 Type 2 diabetes mellitus with other skin ulcer; E11.51 Type 2 diabetes mellitus with diabetic peripheral angiopathy without gangrene; E11.42 Type 2 diabetes mellitus with diabetic polyneuropathy; L97.811 Non-pressure chronic ulcer of other part of right lower leg limited to breakdown of skin; Z99.3 Dependence on wheelchair; R60.0 Localized edema; Z89.612 Acquired absence of left leg above knee; Z79.4 Long term (current) use of insulin; Z79.82 Long term (current) use of aspirin | CPT/HCPCS: A6402; G0463 ==

== ENCOUNTER 2017-01-05 07:58 | Inpatient (IN) | payer MEDICARE, BC ==
[~2017-01-05] VITALS: Ht 180.3 cm; Wt 85.3 kg
--- NOTE | 2017-01-05 08:10 | NUR ---
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 SATING LOW 90S RA. SEEN BY FOR ESTRELLITA. CG AT THE BS. SAFETY AND COMFORT MEASURES PROVIDED. WILL MONITOR.
[2017-01-05] MEDS ORDERED: ASPIRIN 325 MG TABLET ONE (08:16)
[2017-01-05] MEDS ORDERED: NITROGLYCERIN PACKET 1 GM PACKET ONE (08:16)
--- NOTE | 2017-01-05 08:20 | NUR ---
IV ACCESS STARTED. BLOOD DRAWN FOR LABS. MEDICATED ORDERED.
[2017-01-05] MEDS ORDERED: ASPIRIN 325 MG TABLET PO ONE (08:30)
[2017-01-05] MEDS ORDERED: NITROGLYCERIN PACKET 1 GM PACKET TD ONE (08:30)
[2017-01-05 08:41] LABS: BASOPHILS % (AUTO) 0.5 % (0.0-2.0); EOSINOPHILS # (AUTO) 0.1 /CMM (0.0-0.7); EOSINOPHILS % (AUTO) 1.8 % (0.0-6.0); HEMATOCRIT 26 % (39-51); HEMOGLOBIN 8.1 g/dL (13.5-17.5); LYMPHOCYTES # (AUTO) 0.9 /CMM (0.8-4.8); LYMPHOCYTES % (AUTO) 12.7 % (20.0-44.0); MEAN CORPUSCULAR HEMOGLOBIN 25 PG (26.0-33.0); MEAN CORPUSCULAR HGB CONC 31 g/dl (31.0-36.0); MEAN CORPUSCULAR VOLUME 82 fL (80-96); MONOCYTES # (AUTO) 0.5 /CMM (0.1-1.30); MONOCYTES % (AUTO) 6.7 % (2.0-12.0); NEUTROPHILS # (AUTO) 5.7 /CMM (1.8-8.9); NEUTROPHILS % (AUTO) 78.3 % (43.0-81.0); PLATELET COUNT (AUTO) 208 /CMM (150-450); RDW COEFFICIENT OF VARIATION 18.4 (11.5-15.0); WHITE BLOOD COUNT (AUTO) 7.3 K/uL (4.3-11.0)
[2017-01-05 08:49] LABS: CARBON DIOXIDE 26 mmol/L (21-32); CHLORIDE 105 mmol/L (98-107); CREATININE 1.5 mg/dL (0.6-1.3); GLUCOSE 127 mg/dL (74-106); POTASSIUM 5.3 mmol/L (3.5-5.1); SODIUM SERUM 141 mmol/L (136-145); UREA NITROGEN, BLOOD 34 mg/dL (7-18)
[2017-01-05 08:59] LABS: INR 1.04 (0.87-1.13); PROTHROMBIN TIME 10.8 SECS (9.5-12.7)
[2017-01-05] MEDS ORDERED: FUROSEMIDE 40 MG/4 ML VIAL IV ONE (09:00)
[2017-01-05 09:01] LABS: ALANINE AMINOTRANSFERASE 32 U/L (12-78); ALBUMIN 3.5 g/dL (3.4-5.0); ALKALINE PHOSPHATASE 138 U/L (46-116); ASPARTATE AMINOTRANSFERASE 23 U/L (15-37); B-TYPE NATRIURETIC PEPTIDE 2266 PG/ML (0-125); BILIRUBIN,DIRECT 0.1 mg/dL (0.0-0.2); BILIRUBIN,TOTAL 0.5 mg/dL (0.2-1.0); TOTAL PROTEIN, SERUM 8.2 g/dL (6.4-8.2); TROPONIN I 0.594 ng/mL (0.00-0.056)
[2017-01-05] MEDS ORDERED: FUROSEMIDE 40 MG/4 ML VIAL ONE ×2 (09:03→22:27)
[2017-01-05] MEDS ORDERED: FERR-58 PO (09:05)
[2017-01-05] MEDS ORDERED: MAGN400O6 PO (09:05)
[2017-01-05] MEDS ORDERED: ARGI1POW13 PO (09:05)
[2017-01-05] MEDS ORDERED: ACET-868 PO (09:05)
--- NOTE | 2017-01-05 09:45 | NUR ---
DR. IBRAHIM AT FOR SUSHILAAL.
--- NOTE | 2017-01-05 10:03 | NUR ---
REPORT GIVEN TO DAVID BANUELOS FOR TELE ROOM 307.
[2017-01-05] MEDS ORDERED: DEXTROSE 50%-WATER 50 ML DISP.SYRIN IV PRN (10:30)
[2017-01-05] MEDS ORDERED: Z GUARD REMEDY 2 OZ OINT TP PRN (10:30)
[2017-01-05] MEDS ORDERED: ONDANSETRON HCL/PF 4 MG/2 ML VIAL IVP PRN (10:30)
[2017-01-05] MEDS ORDERED: MORPHINE SULFATE INJ 2 MG/ML DISP.SYRIN IV PRN (10:30)
[2017-01-05] MEDS ORDERED: NITROGLYCERIN 0.4 MG/TAB BOTTLE SL PRN (10:30)
[2017-01-05] MEDS ORDERED: HYDROCODONE/APAP 5/325MG 1 EACH TABLET PO PRN (10:30)
[2017-01-05] MEDS ORDERED: ZOLPIDEM TARTRATE 5 MG TABLET PO PRN (10:30)
[2017-01-05] MEDS ORDERED: BISACODYL SUPP (10 MG) 10 MG/SUPP.RECT SUPP.RECT RC PRN (10:30)
[2017-01-05] MEDS ORDERED: ACETAMINOPHEN 325 MG TABLET PO PRN ×2 (10:30)
[2017-01-05] MEDS ORDERED: MAG HYDROX/AL HYDROX/SIMETH 30 ML UDC PO PRN (10:30)
[2017-01-05] MEDS ORDERED: MAGNESIUM HYDROXIDE 30 ML UDC PO PRN ×2 (10:30)
[2017-01-05 10:55] VITALS: BP 131/78
--- NOTE | 2017-01-05 10:55 | NUR ---
ADMISSION NOTES PATIENT ADMITTED FROM ER 76 Y/OLD ON DX OF CHF TELE HR-71. V/S TAKEN BP -131/78, P-69, T-97.8, R-19, 02-95 ROOM AIR. PATIENT , A/O X3. PATIENT HAS HO SOB AT THIS TIME. SKIN ASSESSMENT DONE PICTURE TAKEN, PATIENT HAS A RIGHT ABOVE THE KNEE AMPUTATION, CONTINENT USING URINAL, IV ON LEFT AC AREA , INTACT, BED SIDE COMMAND, CALL LIGHT WITHIN TO REACH, SAFETY PRECAUTION MAINTAINED ALL THE TIME. BELONGING CHECKED, DR IBRAHIM AWARE OF NEW PATIENT. CONTINUED MONITORING.
[2017-01-05] MEDS ORDERED: HYDROMORPHONE INJ 2 MG/ML DISP.SYRIN IV PRN (11:30)
[2017-01-05] MEDS: BLOOD SUGAR DIAGNOSTIC 1 EACH STRIP VI SCH ×3 (11:50→21:35)
[2017-01-05] MEDS: CALCIUM CARB 600MG /VIT D 1 EACH TABLET PO SCH (11:58)
[2017-01-05] MEDS: ENOXAPARIN SODIUM 40 MG/0.4 ML DISP.SYRIN SQ SCH (11:59)
--- NOTE | 2017-01-05 13:00 | NUR ---
RN NOTES PATIENT IN THE ROOM, SITTING EDGE OF THE BED, NO RESPIRATORY DISTRESS, BS-116 MG/DL, SCHEDULED MEDICATION ADMINISTERED, DRESSING CHANGE ON LEFT LEG, PATIENT SIGHT CONSENT FORM FOR DEBRIDEMENT FOR TOMORROW. PATIENT USING URINAL, AND BED SIDE COMMODE, NEXT TO THE BED, CALL LIGHT WITHIN TO REACH, NEEDS ATTENDED AND ANTICIPATED, CONTINUED MONITORING.
[2017-01-05] MEDS ORDERED: SODIUM POLYSTYRENE SULFONATE 15 G/60 ML BOTTLE PO ONE (13:30)
[2017-01-05] MEDS: INSULIN REGULAR, HUMAN 100 UNIT/ML 3 ML VIAL SQ SCH ×2 (15:00→18:49)
[2017-01-05] MEDS: FUROSEMIDE 100 MG/10 ML VIAL IV SCH ×3 (15:05→22:30)
[2017-01-05 16:00] VITALS: BP 115/72
[2017-01-05] MEDS ORDERED: Medication Not On Formulary EA (Arginine/Ascorbate Sod/Vite AC (Arginaid Powder) 1 EACH) PO SCH (17:00)
[2017-01-05] MEDS ORDERED: FUROSEMIDE 40 MG/4 ML VIAL IV SCH (17:00)
--- NOTE | 2017-01-05 17:00 | NUR ---
RN NOTES BS-142 MG/GL, SCHEDULED MEDICATION ADMINISTERED, PATIENT HAS NO ACUTE DISTRESS, NO RESPIRATORY DISTRESS, IV HEP LOCK ON LEFT AC AREA INTACT, ENCOURAGED TO INCREASE FLUID INTAKE, CALL LIGHT WITHIN TO REACH, CONTINUED MONITORING FOR SAFETY.
[2017-01-05] MEDS: FERROUS SULFATE (325 MG) 325 MG/TAB TABLET PO SCH (18:40)
[2017-01-05] MEDS: DOCUSATE SODIUM 100 MG CAPSULE PO SCH (18:40)
[2017-01-05] MEDS: CARVEDILOL 6.25 MG TABLET PO SCH (18:43)
[2017-01-05] MEDS: DRONEDARONE HYDROCHLORIDE 400 MG TABLET PO SCH (18:47)
--- NOTE | 2017-01-05 19:00 | NUR ---
RN NOTES PATIENT IN THE BED NO RESPIRATORY DISTRESS, NO C/O PAIN AT THIS TIME, NEEDS ATTENDED AND ANTICIPATED, PATIENT FOCUSED GOING OUT TO SMOKE, CALL LIGHT WITHIN TO REACH, SAFETY PRECAUTION MAINTAINED ALL THE TIME, PATIENT USING URINAL. ENDORSED ONCOMING NURSE FOR CONTINUATION OF CARE.
--- NOTE | 2017-01-05 19:30 | NUR ---
ROOMING HOUSE OPERATOR OPENING NOTES: PATIENT SITTING ON BED, AOX4, ON ROOM AIR, BREATHING WITH EVEN EXPANSION, ORTHOPNEIC, BREATH SOUNDS DIMINISHED OVER BASES, BREATHING AT RATE OF 22-25/MIN. ON TELE MONITORING, SR 69 WITH BBB. PATIENT APPEARS CALM AND IN NO DISTRESS, DENIES CHEST PAIN OR SOB. PIV OVER LGA G 20 INTACT AND PATENT TO FLUSH. R FOOT HAS CLEAN AND INTACT DRESSING. PROVIDED FOR COMFORT AND SAFETY. BED IN LOWEST AND LOCKED POSITION, SIDERAILS UPX2. MAINTAINED CONTACT PREC FOR HX OF MRSA. WILL CONT TO MONITOR.
[2017-01-05 20:00] VITALS: BP 151/75
[2017-01-05 20:32] VITALS: BP 151/75
--- NOTE | 2017-01-05 21:30 | NUR ---
RN NOTES: PATIENT'S BLOOD SUGAR CHECKED AT 142 MG/DL, ADMINISTERED 2 UNITS REGULAR INSULIN PER SS. GAVE LIGHT SNACK. WILL CONT TO MONITOR.
[2017-01-05] MEDS: TAMSULOSIN 0.4 MG CAP.SR.24H PO SCH (21:35)
[2017-01-05] MEDS: *INSULIN REGULAR(HUMULIN R)HUM 100 UNIT/ML VIAL SQ PRN (21:40)
--- NOTE | 2017-01-05 22:20 | NUR ---
RN NOTES: 3RD DOSE OF FUROSEMIDE 80 MG IV WAS GIVEN JUST NOW BECAUSE LAST DOSE WAS GIVEN AT 1840 AND DOSE FREQ WAS Q4HR. BP TAKEN BEFORE ADMINISTRATION: 135/70, HR: 77, O2 SAT 98% ON ROOM AIR.
[2017-01-05 22:30] VITALS: BP 135/70
--- NOTE | 2017-01-05 23:05 | NUR ---
RN NOTES: GAVE PATIENT LIGHT SNACK NOW AND ADVISED TO BE ON NPO FOR POSSIBLE DEBRIDEMENT OF R FOOT WOUND IN OR IN AM.
[2017-01-05] MEDS: HYDROCODONE/APAP 10/325MG 1 EA TABLET PO PRN (23:37)
--- NOTE | 2017-01-05 23:40 | NUR ---
RN NOTES: ADMINISTERED NORCO 10-325 MG PO FOR 9/10 PAIN OVER R FOOT AND LEG. POSITIONED FOR COMFORT IN BED.
[2017-01-06] VITALS (7 sets, daily range): BP systolic 114–129; BP diastolic 50–86
--- NOTE | 2017-01-06 01:35 | NUR ---
RN NOTES: PATIENT'S RLE DRESSING SOILED, WOUNDS OVER R LOWER EXTREMITY REDRESSED.
[2017-01-06] MEDS: BLOOD SUGAR DIAGNOSTIC 1 EACH STRIP VI SCH ×4 (06:30→21:25)
[2017-01-06 06:40] LABS: BASOPHILS % (AUTO) 0.5 % (0.0-2.0); EOSINOPHILS # (AUTO) 0.3 /CMM (0.0-0.7); EOSINOPHILS % (AUTO) 4.2 % (0.0-6.0); HEMATOCRIT 27 % (39-51); HEMOGLOBIN 8.2 g/dL (13.5-17.5); LYMPHOCYTES # (AUTO) 1.3 /CMM (0.8-4.8); LYMPHOCYTES % (AUTO) 20.4 % (20.0-44.0); MEAN CORPUSCULAR HEMOGLOBIN 25 PG (26.0-33.0); MEAN CORPUSCULAR HGB CONC 31 g/dl (31.0-36.0); MEAN CORPUSCULAR VOLUME 81 fL (80-96); MONOCYTES # (AUTO) 0.6 /CMM (0.1-1.30); MONOCYTES % (AUTO) 9.4 % (2.0-12.0); NEUTROPHILS # (AUTO) 4.1 /CMM (1.8-8.9); NEUTROPHILS % (AUTO) 65.5 % (43.0-81.0); PLATELET COUNT (AUTO) 223 /CMM (150-450); RDW COEFFICIENT OF VARIATION 18.9 (11.5-15.0); RED BLOOD CELL COUNT(AUTO) 3.29 MIL/uL (4.5-6.0); WHITE BLOOD COUNT (AUTO) 6.3 K/uL (4.3-11.0)
--- NOTE | 2017-01-06 06:41 | NUR ---
MUD ANALYSIS SUPERVISOR CLOSING NOTES: PATIENT IN BED, AOX4, ON ROOM AIR, BREATHING EVEN AND UNLABORED, DENIES SOB OR CHEST PAIN. 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 PATIENT REPORTS THAT HIS BREATHING HAS BEEN RELIEVED OVERNIGHT. DUE MEDS GIVEN. WOUND CARE OVER RLE AND BILATERAL THIGHS DONE . BLOOD SUGAR CHECKED AT 98 MG/DL, NO INSULIN INDICATED AT THIS TIME . PIV OVER LAC G 20 INTACT AND PATENT TO FLUSH. NO ACUTE CHANGE IN CONDITION. PROVIDED FOR COMFORT AND SAFETY. BED IN LOWEST AND LOCKED POSITION, SIDERAILS UPX2. CALL LIGHT WITHIN REACH. WILL ENDORSE TO AM RN FOR CRYSTAL.
[2017-01-06 06:45] LABS: ALANINE AMINOTRANSFERASE 32 U/L (12-78); ALBUMIN 3.7 g/dL (3.4-5.0); ALKALINE PHOSPHATASE 135 U/L (46-116); ASPARTATE AMINOTRANSFERASE 19 U/L (15-37); BILIRUBIN,TOTAL 0.6 mg/dL (0.2-1.0); CARBON DIOXIDE 32 mmol/L (21-32); CHLORIDE 104 mmol/L (98-107); CREATININE 1.5 mg/dL (0.6-1.3); GLUCOSE 93 mg/dL (74-106); MAGNESIUM 2.2 mg/dL (1.8-2.4); PHOSPHORUS 4.6 mg/dL (2.5-4.9); POTASSIUM 4.6 mmol/L (3.5-5.1); SODIUM SERUM 143 mmol/L (136-145); TOTAL PROTEIN, SERUM 8.6 g/dL (6.4-8.2); UREA NITROGEN, BLOOD 31 mg/dL (7-18)
--- NOTE | 2017-01-06 07:25 | NUR ---
RN OPENING NOTES RECEIVED PATIENT SITTING UP RIGHT IN BED. AOX4. NO COMPLAINTS OF PAIN, CP, OR SOB. RESPIRATIONS EVEN AND UNLABORED. NO ACUTE DISTRESS. IV ACCESS ON THE LEFT FOREARM 18G PATENT AND INTACT. NO S/S OF INFILTRATION. WOUNDS TO THE RIGHT LEG. DRESSING INTACT. BED LOCKED IN THE LOWEST POSITION WITH SIDE RAILS UPx2. WILL CONTINUE TO MONITOR, ASSESS, AND EDUCATE PATIENT THROUGHOUT SHIFT.
--- NOTE | 2017-01-06 07:30 | NUR ---
RN NOTES: CALLED DR MARTIN. PER MD, DEBRIDEMENT WILL BE DONE AT BEDSIDE AND THAT PATIENT CAN EAT.
[2017-01-06 07:45] LABS: TROPONIN I 0.507 ng/mL (0.00-0.056)
[2017-01-06 07:56] LABS: CHOLESTEROL 80 mg/dL (<200); HDL CHOLESTEROL 32 mg/dL (40-60); LDL 37 mg/dL (0-99); TRIGLYCERIDES 43 mg/dL (30-150)
[2017-01-06] MEDS: INSULIN REGULAR, HUMAN 100 UNIT/ML 3 ML VIAL SQ SCH ×3 (08:00→17:36)
[2017-01-06] MEDS: DRONEDARONE HYDROCHLORIDE 400 MG TABLET PO SCH ×2 (08:55→17:34)
[2017-01-06] MEDS ORDERED: LOSARTAN POTASSIUM 25 MG TABLET PO SCH (09:00)
[2017-01-06] MEDS ORDERED: SPIRONOLACTONE 25 MG TABLET PO SCH (09:00)
[2017-01-06] MEDS: ZINC SULFATE 220 MG CAPSULE PO SCH (09:07)
[2017-01-06] MEDS: CLOPIDOGREL BISULFATE 75 MG TABLET PO SCH (09:07)
[2017-01-06] MEDS: LEVOTHYROXINE SODIUM 100 MCG TABLET PO SCH (09:07)
[2017-01-06] MEDS: MULTIVIT, IRON, MIN NO. 8, FA 1 TAB PO SCH (09:07)
[2017-01-06] MEDS: ASPIRIN 81 MG TAB.CHEW PO SCH (09:07)
[2017-01-06] MEDS: ASCORBIC ACID 500 MG TABLET PO SCH (09:07)
[2017-01-06] MEDS: DULOXETINE HCL 30 MG CAPSULE.DR PO SCH (09:08)
[2017-01-06] MEDS: CALCIUM CARB 600MG /VIT D 1 EACH TABLET PO SCH (09:08)
[2017-01-06] MEDS: FUROSEMIDE 40 MG/4 ML VIAL IV SCH ×3 (09:08→17:51)
[2017-01-06] MEDS: FERROUS SULFATE (325 MG) 325 MG/TAB TABLET PO SCH ×2 (09:08→17:32)
[2017-01-06] MEDS: DOCUSATE SODIUM 100 MG CAPSULE PO SCH ×2 (09:08→17:32)
[2017-01-06] MEDS: CARVEDILOL 6.25 MG TABLET PO SCH ×2 (09:08→17:33)
[2017-01-06] MEDS: ENOXAPARIN SODIUM 40 MG/0.4 ML DISP.SYRIN SQ SCH (09:10)
[2017-01-06] MEDS: INSULIN DETEMIR 100 UNIT/ML CARTRIDGE SQ SCH (09:26)
--- NOTE | 2017-01-06 09:40 | NUR ---
RN NON ADMIN NOTES INSULIN 10 UNITS HELD. BS 121. WILL CONTINEU TO MONITOR
[2017-01-06] MEDS: DAKINS QUARTER STRENGTH (0.125%) 480 ML BOTTLE TOP SCH (09:42)
[2017-01-06] MEDS: HYDROCODONE/APAP 10/325MG 1 EA TABLET PO PRN (17:41)
--- NOTE | 2017-01-06 17:52 | NUR ---
RN NON ADMIN NOTES LASIX ADMINISTERED THIRD DOSE. DUPLICATE ORDER.
[2017-01-06] MEDS ORDERED: FUROSEMIDE 40 MG/4 ML VIAL IV SCH (18:00)
--- NOTE | 2017-01-06 19:30 | NUR ---
RN OPENING NOTES PATIENT IS IN BED, ALERT AND ORIENTED X4. NO C/ O PAIN AT THIS TIME. RESPIRATIONS EVEN AND UNLABORED. IV ACCESS ON THE LEFT FOREARM PATENT AND INTACT. NO S/S OF REDNESS OR INFILTRATION NOTED. WOUNDS TO THE RIGHT LEG. DRESSING INTACT. BED LOCKED AND LOWEST POSITION. SIDE RAILS X2. CALL LIGHT WITHIN EASY REACH. WILL CONTINUE MONITOR AND ASSESS DURING THE SHIFT.
--- NOTE | 2017-01-06 19:30 | NUR ---
RN CLOSING NOTES PATIENT RESTING COMFORTABLY IN BED. AOX4. NO ACUTE DISTRESS. RESPIRATIONS EVEN AND UNLABORED. DENIES PAIN, CP OR SOB. IV ACCESS ON THE LEFT AC 18 PATENT AND INTACT. ALL NEEDS MET ALL MEDS GIVEN APPROPRIATE. WILL ENDORSE TO SUPERVISOR DRILLING AND SHOOTING FOR CRYSTAL.
[2017-01-06] MEDS: ATORVASTATIN 40 MG TABLET PO SCH (21:21)
[2017-01-06] MEDS: TAMSULOSIN 0.4 MG CAP.SR.24H PO SCH (21:21)
[2017-01-06] MEDS: *INSULIN REGULAR(HUMULIN R)HUM 100 UNIT/ML VIAL SQ PRN (21:28)
--- NOTE | 2017-01-06 21:28 | NUR ---
RN NOTES BS 88. NO INSULIN ADMINISTERED PER PROTOCOL. CONTINUE TO MONITOR.
[2017-01-07] MEDS: HYDROCODONE/APAP 10/325MG 1 EA TABLET PO PRN ×2 (01:17→21:26)
[2017-01-07] MEDS: BLOOD SUGAR DIAGNOSTIC 1 EACH STRIP VI SCH ×4 (06:31→21:09)
[2017-01-07] MEDS: INSULIN REGULAR, HUMAN 100 UNIT/ML 3 ML VIAL SQ PRN ×3 (06:35→21:25)
--- NOTE | 2017-01-07 06:36 | NUR ---
RN NOTES BS 98. NO INSULIN ADMINISTERED PER PROTOCOL. CONTINUE TO MONITOR.
[2017-01-07 06:42] LABS: BASOPHILS % (AUTO) 0.6 % (0.0-2.0); EOSINOPHILS # (AUTO) 0.3 /CMM (0.0-0.7); EOSINOPHILS % (AUTO) 3.7 % (0.0-6.0); HEMATOCRIT 28 % (39-51); HEMOGLOBIN 8.5 g/dL (13.5-17.5); LYMPHOCYTES # (AUTO) 1.5 /CMM (0.8-4.8); LYMPHOCYTES % (AUTO) 20.7 % (20.0-44.0); MEAN CORPUSCULAR HEMOGLOBIN 25 PG (26.0-33.0); MEAN CORPUSCULAR HGB CONC 31 g/dl (31.0-36.0); MEAN CORPUSCULAR VOLUME 81 fL (80-96); MONOCYTES # (AUTO) 0.6 /CMM (0.1-1.30); MONOCYTES % (AUTO) 7.6 % (2.0-12.0); NEUTROPHILS % (AUTO) 67.4 % (43.0-81.0); PLATELET COUNT (AUTO) 231 /CMM (150-450); RDW COEFFICIENT OF VARIATION 19.5 (11.5-15.0); RED BLOOD CELL COUNT(AUTO) 3.43 MIL/uL (4.5-6.0); WHITE BLOOD COUNT (AUTO) 7.4 K/uL (4.3-11.0)
--- NOTE | 2017-01-07 06:43 | NUR ---
RN CLOSING NOTES PATIENT IS IN BED, ALERT AND ORIENTED X4. NO C/ O PAIN AT THIS TIME. RESPIRATIONS EVEN AND UNLABORED. IV ACCESS ON THE LEFT FOREARM PATENT AND INTACT. NO S/S OF REDNESS OR INFILTRATION NOTED. WOUNDS TO THE RIGHT LEG. DRESSING INTACT. ALL MEDICATIONS GIVEN PER MD ORDER. BED LOCKED AND LOWEST POSITION. SIDE RAILS X2. CALL LIGHT WITHIN EASY REACH. WILL ENDORSE TO RN DAY SHIFT FOR CONTINUITY OF CARE.
[2017-01-07 07:01] LABS: CARBON DIOXIDE 34 mmol/L (21-32); CHLORIDE 100 mmol/L (98-107); CREATININE 1.7 mg/dL (0.6-1.3); GLUCOSE 71 mg/dL (74-106); SODIUM SERUM 140 mmol/L (136-145); UREA NITROGEN, BLOOD 36 mg/dL (7-18)
[2017-01-07 07:02] LABS: ALANINE AMINOTRANSFERASE 27 U/L (12-78); ALBUMIN 3.7 g/dL (3.4-5.0); ALKALINE PHOSPHATASE 132 U/L (46-116); ASPARTATE AMINOTRANSFERASE 21 U/L (15-37); BILIRUBIN,TOTAL 0.5 mg/dL (0.2-1.0); MAGNESIUM 2.1 mg/dL (1.8-2.4); PHOSPHORUS 5.4 mg/dL (2.5-4.9); TOTAL PROTEIN, SERUM 8.7 g/dL (6.4-8.2)
--- NOTE | 2017-01-07 07:40 | NUR ---
RN OPENING NOTES PT. ON ISOLATION FOR MRSA OF WOUND. RECEIVED PT. SITTING UP IN WHEELCHAIR A&OX4. BREATHING EVENLY AND UNLABORED ON ROOM AIR. NO S/S OF ACUTE DISTRESS. IV ACCESS ON LEFT ANTECUBITAL SITE IS INTACT AND PATENT WITH SALINE FLUSH. PT. HAS A DRESSING ON RIGHT LEG. INSTRUCTED PT. TO USE CALL LIGHT FOR ASSISTANCE. ALL NEEDS MET. WILL CONTINUE TO ASSESS AND MONITOR.
[2017-01-07 08:00] VITALS: BP 118/76
[2017-01-07] MEDS: INSULIN REGULAR, HUMAN 100 UNIT/ML 3 ML VIAL SQ SCH ×3 (08:52→18:00)
[2017-01-07] MEDS: DRONEDARONE HYDROCHLORIDE 400 MG TABLET PO SCH ×2 (08:54→17:02)
[2017-01-07] MEDS: ASPIRIN 81 MG TAB.CHEW PO SCH (09:03)
[2017-01-07] MEDS: ZINC SULFATE 220 MG CAPSULE PO SCH (09:03)
[2017-01-07] MEDS: DOCUSATE SODIUM 100 MG CAPSULE PO SCH ×2 (09:03→17:01)
[2017-01-07] MEDS: LEVOTHYROXINE SODIUM 100 MCG TABLET PO SCH (09:03)
[2017-01-07] MEDS: MULTIVIT, IRON, MIN NO. 8, FA 1 TAB PO SCH (09:03)
[2017-01-07] MEDS: ASCORBIC ACID 500 MG TABLET PO SCH (09:03)
[2017-01-07] MEDS: DULOXETINE HCL 30 MG CAPSULE.DR PO SCH (09:03)
[2017-01-07] MEDS: CALCIUM CARB 600MG /VIT D 1 EACH TABLET PO SCH (09:03)
[2017-01-07] MEDS: CLOPIDOGREL BISULFATE 75 MG TABLET PO SCH (09:04)
[2017-01-07] MEDS: FERROUS SULFATE (325 MG) 325 MG/TAB TABLET PO SCH ×2 (09:04→17:01)
[2017-01-07] MEDS: CARVEDILOL 6.25 MG TABLET PO SCH ×2 (09:04→17:02)
[2017-01-07] MEDS: ENOXAPARIN SODIUM 40 MG/0.4 ML DISP.SYRIN SQ SCH (09:07)
[2017-01-07] MEDS: FUROSEMIDE 80 MG TABLET PO SCH (09:17)
[2017-01-07] MEDS: DAKINS QUARTER STRENGTH (0.125%) 480 ML BOTTLE TOP SCH (09:18)
[2017-01-07] MEDS: INSULIN DETEMIR 100 UNIT/ML CARTRIDGE SQ SCH (09:25)
--- NOTE | 2017-01-07 09:30 | NUR ---
RN NOTES PT. HAD RIGHT LEG WOUND DEBRIDEMENT DONE AT BEDSIDE PERFORMED BY DR. MARTIN.
[2017-01-07 16:00] VITALS: BP 116/71
--- NOTE | 2017-01-07 18:00 | NUR ---
RN NOTES MEDICATION NON ADMINISTRATION HELD REGULAR INSULIN 10 UNITS ADMINISTRATION DUE TO PT.'S DECREASE IN BLOOD SUGAR TO 53 MG/DL AT 1623. PT. WAS GIVEN 8 OZ OF ORANGE JUICE AND I PACKET OF SUGAR. AFTER 15 MIN PT.'S BLOOD SUGAR INCREASED TO 83 MG/DL. AFTER ANOTHER 15 MIN BLOOD SUGAR INCREASED TO 102 MG/DL. AT 1730 PT.'S BLOOD SUGAR WAS 142 MG/DL.
--- NOTE | 2017-01-07 19:30 | NUR ---
RN OPENING NOTES PATIENT IS IN WHEELCHAIR, ALERT AND ORIENTED X4. NO C/ O PAIN AT THIS TIME. RESPIRATIONS EVEN AND UNLABORED. IV ACCESS ON THE LEFT FOREARM PATENT AND INTACT. NO S/S OF REDNESS OR INFILTRATION NOTED. WOUNDS TO THE RIGHT LEG. DRESSING INTACT. BED LOCKED AND LOWEST POSITION. SIDE RAILS X2. CALL LIGHT WITHIN EASY REACH. WILL CONTINUE MONITOR AND ASSESS DURING THE SHIFT.
--- NOTE | 2017-01-07 19:49 | NUR ---
RN CLOSING NOTES PT. ON ISOLATION FOR MRSA OF WOUND. PT. SITTING UP IN WHEELCHAIR A&OX4. BREATHING EVENLY AND UNLABORED ON ROOM AIR. NO S/S OF ACUTE DISTRESS. IV ACCESS ON LEFT ANTECUBITAL SITE IS INTACT AND PATENT WITH SALINE FLUSH. PT. HAS DRESSING ON RIGHT LEG POST WOUND DEBRIDEMENT. INSTRUCTED PT. TO USE CALL LIGHT FOR ASSISTANCE. ALL NEEDS MET. WILL ENDORSE REPORT TO NURSE.
[2017-01-07 20:00] VITALS: BP 130/77
[2017-01-07 20:03] VITALS: BP 130/77
[2017-01-07] MEDS: ATORVASTATIN 40 MG TABLET PO SCH (21:14)
[2017-01-07] MEDS: TAMSULOSIN 0.4 MG CAP.SR.24H PO SCH (21:14)
[2017-01-08] MEDS: BLOOD SUGAR DIAGNOSTIC 1 EACH STRIP VI SCH (06:39)
[2017-01-08] MEDS: INSULIN REGULAR, HUMAN 100 UNIT/ML 3 ML VIAL SQ PRN (06:46)
--- NOTE | 2017-01-08 06:47 | NUR ---
RN NOTES BS 109. NO INSULIN ADMINISTERED PER PROTOCOL. CONTINUE TO MONITOR.
--- NOTE | 2017-01-08 06:54 | NUR ---
RN CLOSING NOTES PATIENT IS IN BED, ALERT AND ORIENTED X4. NO C/ O PAIN AT THIS TIME. NO SOB NOTED. RESPIRATIONS EVEN AND UNLABORED. IV ACCESS ON THE LEFT FOREARM PATENT AND INTACT. NO S/S OF REDNESS OR INFILTRATION NOTED. SKIN CLEAN AND DRY. RIGHT LOWER LEG ELEVATED AND WOUND DRESSING CHANGED. ALL MEDICATIONS GIVEN PER MR ORDER. BED LOCKED AND LOWEST POSITION. SIDE RAILS X2. CALL LIGHT WITHIN EASY REACH. WILL ENDORSE TO RN DAY SHIFT FOR CONTINUITY OF CARE.
--- NOTE | 2017-01-08 07:15 | NUR ---
MS RN initial notes Received pt in bed, awake,alert, oriented X4,on room air, no SOB, no apparent distress noted.Denies any pain or discomfort at this time. IV site Lt AC intact, patent, no s/sx of infiltration noted. Kept clean and comfortable,call light within reach. Will continue to monitor accordingly
[2017-01-08 08:00] VITALS: BP 111/54
[2017-01-08] MEDS: ASPIRIN 81 MG TAB.CHEW PO SCH (08:14)
[2017-01-08] MEDS: FERROUS SULFATE (325 MG) 325 MG/TAB TABLET PO SCH (08:14)
[2017-01-08] MEDS: CALCIUM CARB 600MG /VIT D 1 EACH TABLET PO SCH (08:15)
[2017-01-08] MEDS: ASCORBIC ACID 500 MG TABLET PO SCH (08:15)
[2017-01-08] MEDS: LEVOTHYROXINE SODIUM 100 MCG TABLET PO SCH (08:15)
[2017-01-08] MEDS: DULOXETINE HCL 30 MG CAPSULE.DR PO SCH (08:15)
[2017-01-08] MEDS: ZINC SULFATE 220 MG CAPSULE PO SCH (08:15)
[2017-01-08] MEDS: MULTIVIT, IRON, MIN NO. 8, FA 1 TAB PO SCH (08:15)
[2017-01-08] MEDS: FUROSEMIDE 80 MG TABLET PO SCH (08:15)
[2017-01-08] MEDS: CLOPIDOGREL BISULFATE 75 MG TABLET PO SCH (08:15)
[2017-01-08] MEDS: DOCUSATE SODIUM 100 MG CAPSULE PO SCH (08:15)
[2017-01-08] MEDS: ENOXAPARIN SODIUM 40 MG/0.4 ML DISP.SYRIN SQ SCH (08:17)
[2017-01-08] MEDS: DAKINS QUARTER STRENGTH (0.125%) 480 ML BOTTLE TOP SCH (08:18)
[2017-01-08] MEDS: CARVEDILOL 6.25 MG TABLET PO SCH (08:19)
[2017-01-08] MEDS: INSULIN REGULAR, HUMAN 100 UNIT/ML 3 ML VIAL SQ SCH (08:21)
[2017-01-08 10:00] VITALS: BP 111/54
[2017-01-08] MEDS: INSULIN DETEMIR 100 UNIT/ML CARTRIDGE SQ SCH (10:37)
--- NOTE | 2017-01-08 12:00 | NUR ---
MS field crop i farmworker notes Pt discharged in stable condition, alert, oriented X4, verbally responsive, on room air, no apparent distress noted. Denies any pain or discomfort at this time. Discharge instruction given regarding medication administration, wound care and disease process, verbalized understanding. Instructed pt to follow up with his textile bag sewer in one week . Pictures taken. Flu vaccine given 11/05.Refused pneumonia vaccine, explained risks and benefits. Verbalized understanding. Pt left the hospital in stable condition, accompanied by his and staff to the car. notified.
== END 2017-01-08 12:01 | disposition home health service (06) | DRG 264 ==
LOC: ER 07:59 → TELE 09:58 → MED 01-06 20:14
PROVIDERS: ADMIT Internal Medicine; ATTEND Internal Medicine
PROC: 0KBV0ZZ Excision of Right Foot Muscle, Open Approach (ICD-10-PCS; principal; 2017-01-07)
PROC: 0JBN0ZZ Excision of Right Lower Leg Subcutaneous Tissue and Fascia, Open Approach (ICD-10-PCS; 2017-01-07)
DX: I13.0 Hypertensive heart and chronic kidney disease with heart failure and stage 1 through stage 4 chronic kidney disease, or unspecified chronic kidney disease (principal); I21.4 Non-ST elevation (NSTEMI) myocardial infarction; J96.01 Acute respiratory failure with hypoxia; E43 Unspecified severe protein-calorie malnutrition; D68.59 Other primary thrombophilia; E11.22 Type 2 diabetes mellitus with diabetic chronic kidney disease; E11.51 Type 2 diabetes mellitus with diabetic peripheral angiopathy without gangrene; E11.621 Type 2 diabetes mellitus with foot ulcer; I50.33 Acute on chronic diastolic (congestive) heart failure; L03.115 Cellulitis of right lower limb; N18.5 Chronic kidney disease, stage 5; L97.519 Non-pressure chronic ulcer of other part of right foot with unspecified severity; E87.5 Hyperkalemia; E88.09 Other disorders of plasma-protein metabolism, not elsewhere classified; D63.8 Anemia in other chronic diseases classified elsewhere; E03.9 Hypothyroidism, unspecified; E78.5 Hyperlipidemia, unspecified; F17.210 Nicotine dependence, cigarettes, uncomplicated; I25.10 Atherosclerotic heart disease of native coronary artery without angina pectoris; I25.2 Old myocardial infarction; Z86.73 Personal history of transient ischemic attack (TIA), and cerebral infarction without residual deficits; Z95.1 Presence of aortocoronary bypass graft; Z79.4 Long term (current) use of insulin; G47.33 Obstructive sleep apnea (adult) (pediatric); Z91.19 Patient's noncompliance with other medical treatment and regimen; Z95.810 Presence of automatic (implantable) cardiac defibrillator; E66.01 Morbid (severe) obesity due to excess calories; K21.9 Gastro-esophageal reflux disease without esophagitis; Z89.421 Acquired absence of other right toe(s); Z89.612 Acquired absence of left leg above knee; J44.9 Chronic obstructive pulmonary disease, unspecified; I89.0 Lymphedema, not elsewhere classified; I87.8 Other specified disorders of veins; Z99.3 Dependence on wheelchair; Z68.26 Body mass index [BMI] 26.0-26.9, adult
CPT/HCPCS: 36415; 71010-TC; 80048-TC; 80053-TC; 80061-TC; 80076-TC; 82962-TC; 83735-TC; 83880; 84100-TC; 84484-TC; 85025-TC; 85730-TC; 86850-TC; 87081-TC; A4606; A6402; A6403; J1650; J1815; J1940; Z7610

== ENCOUNTER 2017-01-31 02:57 | Emergency (ER) | payer MEDICARE, BC ==
[~2017-01-31] VITALS: Ht 177.8 cm; Wt 150.1 kg
[~2017-01-31 02:57] MED LIST changes: +ACET-868 PO; +ARGI1POW13 PO; +FERR-58 PO; +MAGN400O6 PO
--- NOTE | 2017-01-31 03:30 | NUR ---
76 Y/O MALE PLACED IN BED 2 C/O BILATERAL TESTICULAR SWELLING WITH PAIN
--- NOTE | 2017-01-31 03:55 | NUR ---
PT GIVEN A CUP TO OBTAIN URINE. PT COULD NOT CONTROL THE FLOW OF URINE AND WETTED HIS BED. SHEETS AND BLANKETS CHANGED. US NOW AT BED SIDE.
[2017-01-31 04:13] LABS: APPEARANCE,URINE SL CLOUDY (CLEAR); BILIRUBIN,URINE NEGATIVE (NEGATIVE); BLOOD, URINE NEGATIVE Ery/uL (NEGATIVE); COLOR,URINE YELLOW (YELLOW); KETONES,URINE TRACE (NEGATIVE); LEUKOCYTE ESTERASE ,URINE 1+ (NEGATIVE); NITRITE, URINE NEGATIVE (NEGATIVE); PH,URINE 5.5 (5.0-8.0); PROTEIN,URINE TRACE mg/dl (NEGATIVE); UGLUCOSE NEGATIVE (NEGATIVE); UROBILINOGEN,URINE 0.2 EU/dL (0.2)
[2017-01-31 04:34] LABS: RBC,URINE 0-2 /HPF (0-2); SQUAMOUS EPITHELIAL CELL,UR Rare /HPF (None Seen)
[2017-01-31 04:36] LABS: BACTERIA,URINE RARE /HPF (None Seen)
--- NOTE | 2017-01-31 04:56 | NUR ---
US SHOWS A HYDROCELE. ACI WITH RX GIVEN. PT DISCHARGED HOME TO FOLLOW UP WITH PMD.
[2017-01-31 05:02] VITALS: BP 154/73
--- NOTE | 2017-01-31 05:10 | NUR ---
PT TO BE PICKED UP BY [facility] IN 30 MINUTES. TRIP# [id number]
--- NOTE | 2017-01-31 05:20 | NUR ---
REPORT GIVEN TO EMT FOR CRYSTAL. PT WITH ALL PERSONAL BELONGINGS. PT TRANSFERRED BACK TO HOME VIA [place]. PT VSS.
== END 2017-01-31 05:29 | disposition home or self-care (01) ==
LOC: ER 02:59
DX: N43.3 Hydrocele, unspecified (principal); N39.0 Urinary tract infection, site not specified; R60.1 Generalized edema; I10 Essential (primary) hypertension; E11.9 Type 2 diabetes mellitus without complications; E03.9 Hypothyroidism, unspecified; E66.01 Morbid (severe) obesity due to excess calories; E78.5 Hyperlipidemia, unspecified; Z95.5 Presence of coronary angioplasty implant and graft; Z79.4 Long term (current) use of insulin; Z79.82 Long term (current) use of aspirin; Z68.42 Body mass index [BMI] 45.0-49.9, adult
CPT/HCPCS: 76870; 81001; 87077; 87086; 87186; 99285; A4606; 81000-TC; Z7610

== ENCOUNTER 2017-01-31 08:25 | Outpatient (CLI) | payer MEDICARE, BC | END 2017-01-31 23:59 | disposition home health service (06) | LOC: WOU 08:25 | PROVIDERS: ATTEND Podiatrist Foot & Ankle Surgery | DX: E11.621 Type 2 diabetes mellitus with foot ulcer (principal); L97.513 Non-pressure chronic ulcer of other part of right foot with necrosis of muscle; Z89.612 Acquired absence of left leg above knee; E11.52 Type 2 diabetes mellitus with diabetic peripheral angiopathy with gangrene; I96 Gangrene, not elsewhere classified; Z99.3 Dependence on wheelchair; G47.30 Sleep apnea, unspecified; F17.210 Nicotine dependence, cigarettes, uncomplicated; I25.10 Atherosclerotic heart disease of native coronary artery without angina pectoris; Z95.5 Presence of coronary angioplasty implant and graft; Z90.49 Acquired absence of other specified parts of digestive tract; Z89.421 Acquired absence of other right toe(s); R60.0 Localized edema; E11.622 Type 2 diabetes mellitus with other skin ulcer; L97.819 Non-pressure chronic ulcer of other part of right lower leg with unspecified severity | CPT/HCPCS: 11043; 82962-TC; A6402 ==

== ENCOUNTER 2017-01-31 09:59 | Inpatient (IN) | payer MEDICARE, BC ==
[~2017-01-31] VITALS: Ht 177.8 cm; Wt 139.7 kg
[~2017-01-31 09:59] MED LIST changes: +ASPI-1169 PO; -ASPI81TA2 PO; -CALC-108 PO; +CALC-261 PO; +CLOP75TA15 PO; -CLOP75TA2 PO; +NITR0.4T48 SL; -NITR0.4T6 SL
[2017-01-31] MEDS ORDERED: IV D5/0.45 NACL 1,000 ML IV PRN (11:30)
--- NOTE | 2017-01-31 11:45 | NUR ---
PATIENT ARRIVED TO UNIT WITH A WHEELCHAIR. DIRECT ADMIT FROM WOUND CENTER. ADMITTED TO ROOM 329-1. NO SIGNS / SYMPTOMS OF DISTRESS. DENIED PAIN. WILL CONTINUE TO MONITOR PATIENT THROUGHOUT MY SHIFT
[2017-01-31] MEDS ORDERED: Z GUARD REMEDY 2 OZ OINT TP PRN (12:00)
[2017-01-31] MEDS ORDERED: ACETAMINOPHEN 325 MG TABLET PO PRN (12:00)
[2017-01-31] MEDS ORDERED: ONDANSETRON HCL/PF 4 MG/2 ML VIAL IVP PRN (12:00)
[2017-01-31] MEDS ORDERED: MAG HYDROX/AL HYDROX/SIMETH 30 ML UDC PO PRN (12:00)
[2017-01-31] MEDS ORDERED: MAGNESIUM HYDROXIDE 30 ML UDC PO PRN ×2 (12:00→13:00)
[2017-01-31] MEDS ORDERED: ZOLPIDEM TARTRATE 5 MG TABLET PO PRN (12:00)
[2017-01-31 12:09] LABS: BASOPHILS % (AUTO) 0.2 % (0.0-2.0); EOSINOPHILS # (AUTO) 0.1 /CMM (0.0-0.7); EOSINOPHILS % (AUTO) 1.2 % (0.0-6.0); HEMATOCRIT 24 % (39-51); HEMOGLOBIN 7.5 g/dL (13.5-17.5); LYMPHOCYTES # (AUTO) 0.5 /CMM (0.8-4.8); LYMPHOCYTES % (AUTO) 5.2 % (20.0-44.0); MEAN CORPUSCULAR HEMOGLOBIN 25 PG (26.0-33.0); MEAN CORPUSCULAR HGB CONC 31 g/dl (31.0-36.0); MEAN CORPUSCULAR VOLUME 81 fL (80-96); MONOCYTES # (AUTO) 0.7 /CMM (0.1-1.30); MONOCYTES % (AUTO) 6.7 % (2.0-12.0); NEUTROPHILS # (AUTO) 8.6 /CMM (1.8-8.9); NEUTROPHILS % (AUTO) 86.7 % (43.0-81.0); PLATELET COUNT (AUTO) 185 /CMM (150-450); RDW COEFFICIENT OF VARIATION 19.4 (11.5-15.0); WHITE BLOOD COUNT (AUTO) 9.9 K/uL (4.3-11.0)
[2017-01-31 12:38] LABS: ALANINE AMINOTRANSFERASE 36 U/L (12-78); ALBUMIN 2.8 g/dL (3.4-5.0); ALKALINE PHOSPHATASE 169 U/L (46-116); ASPARTATE AMINOTRANSFERASE 39 U/L (15-37); BILIRUBIN,TOTAL 0.6 mg/dL (0.2-1.0); CALCIUM, SERUM 8.2 mg/dL (8.5-10.1); CARBON DIOXIDE 29 mmol/L (21-32); CHLORIDE 104 mmol/L (98-107); CREATININE 2.4 mg/dL (0.6-1.3); GLUCOSE 155 mg/dL (74-106); MAGNESIUM 2.3 mg/dL (1.8-2.4); PHOSPHORUS 3.9 mg/dL (2.5-4.9); POTASSIUM 5.9 mmol/L (3.5-5.1); SODIUM SERUM 138 mmol/L (136-145); TOTAL PROTEIN, SERUM 7.8 g/dL (6.4-8.2); UREA NITROGEN, BLOOD 46 mg/dL (7-18)
[2017-01-31 12:43] LABS: TROPONIN I 0.162 ng/mL (0.00-0.056)
[2017-01-31 12:45] LABS: THYROID STIMULATING HORMONE 3.906 uIU/mL (0.358-3.74)
[2017-01-31] MEDS ORDERED: HEPARIN SODIUM, PORCINE 5000 UNITS/1 ML VIAL SQ SCH (12:53)
[2017-01-31] MEDS: SPIRONOLACTONE 25 MG TABLET PO SCH (13:00)
[2017-01-31] MEDS: DRONEDARONE HYDROCHLORIDE 400 MG TABLET PO SCH ×2 (13:00→17:50)
[2017-01-31] MEDS: CLOPIDOGREL BISULFATE 75 MG TABLET PO SCH (13:00)
[2017-01-31] MEDS: ASPIRIN 81 MG TAB.CHEW PO SCH (13:00)
[2017-01-31] MEDS: LEVOTHYROXINE SODIUM 100 MCG TABLET PO SCH (13:00)
[2017-01-31] MEDS: CARVEDILOL 6.25 MG TABLET PO SCH ×2 (13:00→17:50)
[2017-01-31] MEDS ORDERED: HYDROCODONE/APAP 10/325MG 1 EA TABLET PO PRN (13:00)
[2017-01-31] MEDS: DULOXETINE HCL 30 MG CAPSULE.DR PO SCH (13:00)
[2017-01-31] MEDS: LOSARTAN POTASSIUM 25 MG TABLET PO SCH (13:00)
--- NOTE | 2017-01-31 13:00 | NUR ---
LAB AT BEDSIDE
[2017-01-31] MEDS: FUROSEMIDE 100 MG/10 ML VIAL IV SCH ×3 (13:59→20:38)
--- NOTE | 2017-01-31 14:20 | NUR ---
WOUND PICTURES WERE NOT TAKEN DUE TO PATIENT REFUSED TO CHANGE DRESSING
[2017-01-31] MEDS ORDERED: PIPERACILLIN /TAZOBACTAM 3.375 G in IV D5W 50 ML IV ONE (14:30)
[2017-01-31] MEDS ORDERED: FEE PK DOSING 1 MIN EA MC ONE (14:45)
[2017-01-31 14:53] LABS: ABG BASE EXCESS 0.1 mmol/L; ABG OXYGEN SATURATION 88.9 % (92.0-98.5); ABG PCO2 43.7 mmHg (35.0-45.0); ABG PO2 59.9 mmHg (75.0-100.0); AaDO2 37.5 mmHg; COHb 2.1 % (0.5-1.5); MetHb 0.3 % (0.0-1.5); O2Hb 86.8 % (94.0-97.0); SITE, ABG Right Brachial; VENT MODE, BG ROOM AIR
[2017-01-31] MEDS ORDERED: VANCOMYCIN 1.5 GM in IV D5W 500 ML IV ONE (15:00)
[2017-01-31 16:00] VITALS: BP 106/58
[2017-01-31] MEDS: DAKINS QUARTER STRENGTH (0.125%) 480 ML BOTTLE TOP SCH (17:49)
[2017-01-31] MEDS: GENTAMICIN 0.1% OINT 15 GM TUBE TP SCH (17:49)
[2017-01-31] MEDS: DOCUSATE SODIUM 100 MG CAPSULE PO SCH (17:50)
--- NOTE | 2017-01-31 18:51 | NUR ---
RN CLOSING NOTES PATIENT IS IN BED RESTING. AWAKE, ALERT AND ORIENTED TO NAME, PLACE AND TIME. NO ACUTE CHANGES THROUGHOUT THE SHIFT. NO SIGNS OF DISTRESS OR SHORT OF BREATH. IV ACCESS IS INTACT AND PATENT. ALL NEEDS WERE ANTICIPATED AND MET. PATIENT KEPT DRY AND CLEAN. BED IS IN LOW AND LOCKED POSITION, CALL LIGHT WITHIN REACH FOR SAFETY. WILL ENDORSE TO NUCLEAR PLANT CONSTRUCTION WORKER.
--- NOTE | 2017-01-31 19:30 | NUR ---
RN NOTES RECEIVED PATIENT UP IN BED, AO X 3, ABLE TO MAKE NEEDS KNOWN. NO ACUTE DISTRESS NOTED. DENIES ANY PAIN AT THIS TIME. NO SYMPTOMS OF HYPER/HYPOGLYCEMIA. SAFETY REMINDERS GIVEN. IV SITES PATENT, INTACT; FLUSHED. PATIENT REFUSED TO HAVE RIGHT FOOT DRESSING TOUGH. ON LOW BED WITH BILATERAL UPPER SIDE RAILS UP. CALL LIGHT BUTTON WITHIN EASY REACH. WILL CONTINUE TO MONITOR.
[2017-01-31 20:00] VITALS: BP 101/51
[2017-01-31] MEDS: PIPERACILLIN /TAZOBACTAM 2.25 G in IV D5W 50 ML IV SCH (20:37)
[2017-01-31] MEDS: HEPARIN SODIUM, PORCINE 5000 UNITS/1 ML VIAL SQ SCH (20:39)
[2017-01-31] MEDS ORDERED: LINEZOLID RTU BAG 600 MG in PREMIX 1 EA IV SCH (21:00)
[2017-01-31] MEDS ORDERED: LINEZOLID RTU BAG 300 ML IV ONE (22:03)
[2017-01-31] MEDS: TAMSULOSIN 0.4 MG CAP.SR.24H PO SCH (22:07)
[2017-02-01] VITALS: BP 107/56
[2017-02-01] MEDS: PIPERACILLIN /TAZOBACTAM 2.25 G in IV D5W 50 ML IV SCH ×4 (03:43→21:52)
[2017-02-01 04:00] VITALS: BP 95/58
--- NOTE | 2017-02-01 06:12 | NUR ---
RN NOTES PATIENT ASLEEP, AROUSABLE. RESPIRATIONS EVEN. NO SIGNS OF PAIN NOTED. DUE MEDS GIVEN WITH NO ASE NOTED. NEEDS ATTENDED. KEPT CLEAN AND DRY. SAFETY PRECAUTIONS AND COMFORT MEASURES IN PLACE. CONTACT ISOLATION FOR VRE IN RIGHT FOOT WOUND MAINTAINED. WILL GIVE REPORT TO DAY SHIFT FOR CONTINUITY OF CARE.
[2017-02-01] MEDS: LEVOTHYROXINE SODIUM 100 MCG TABLET PO SCH (06:56)
--- NOTE | 2017-02-01 07:15 | NUR ---
RN NOTES PATIENT RESTING IN BED. DENIES PAIN. NO SIGNS OF DISTRESS NOTED. PATIENT ALERT ORIENTED X3. IV SITES PATENT AND INTACT. PATIENT ON TELE READING SR WITH PVCS. BED IN LOWEST LOCKED POSITION. CALL LIGHT WITHIN REACH. WILL CONTINUE TO MONITOR.
[2017-02-01 07:50] LABS: BASOPHILS % (AUTO) 0.1 % (0.0-2.0); EOSINOPHILS # (AUTO) 0.2 /CMM (0.0-0.7); EOSINOPHILS % (AUTO) 1.7 % (0.0-6.0); HEMATOCRIT 24 % (39-51); HEMOGLOBIN 7.5 g/dL (13.5-17.5); LYMPHOCYTES # (AUTO) 0.7 /CMM (0.8-4.8); LYMPHOCYTES % (AUTO) 7.7 % (20.0-44.0); MEAN CORPUSCULAR HEMOGLOBIN 26 PG (26.0-33.0); MEAN CORPUSCULAR HGB CONC 31 g/dl (31.0-36.0); MEAN CORPUSCULAR VOLUME 82 fL (80-96); MONOCYTES # (AUTO) 0.5 /CMM (0.1-1.30); MONOCYTES % (AUTO) 5.8 % (2.0-12.0); NEUTROPHILS % (AUTO) 84.7 % (43.0-81.0); PLATELET COUNT (AUTO) 199 /CMM (150-450); RDW COEFFICIENT OF VARIATION 19.8 (11.5-15.0); RED BLOOD CELL COUNT(AUTO) 2.96 MIL/uL (4.5-6.0); WHITE BLOOD COUNT (AUTO) 9.4 K/uL (4.3-11.0)
[2017-02-01 08:00] VITALS: BP_SYST 109; BP_SYST 115; BP_DIAS 69; BP_DIAS 81
[2017-02-01 08:09] LABS: INR 1.07 (0.87-1.13); PROTHROMBIN TIME 11.1 SECS (9.5-12.7)
--- NOTE | 2017-02-01 08:22 | NUR ---
RN NOTES: DR MCCANN ORDERED AGGRESSIVE SLIDING SCALE
[2017-02-01 08:28] LABS: CALCIUM, SERUM 8.3 mg/dL (8.5-10.1); CARBON DIOXIDE 28 mmol/L (21-32); CHLORIDE 101 mmol/L (98-107); CREATININE 2.8 mg/dL (0.6-1.3); GLUCOSE 141 mg/dL (74-106); POTASSIUM 5.4 mmol/L (3.5-5.1); SODIUM SERUM 134 mmol/L (136-145); UREA NITROGEN, BLOOD 51 mg/dL (7-18)
[2017-02-01] MEDS ORDERED: DEXTROSE 50%-WATER 50 ML DISP.SYRIN IV PRN (08:30)
[2017-02-01 08:33] LABS: MAGNESIUM 2.5 mg/dL (1.8-2.4); PHOSPHORUS 4.8 mg/dL (2.5-4.9); VANCOMYCIN,RANDOM 12 ug/ml (18-26)
[2017-02-01 08:38] LABS: CHOLESTEROL 58 mg/dL (<200); HDL CHOLESTEROL 22 mg/dL (40-60); LDL 28 mg/dL (0-99); TRIGLYCERIDES 42 mg/dL (30-150)
[2017-02-01 08:55] LABS: ALANINE AMINOTRANSFERASE 34 U/L (12-78); ALKALINE PHOSPHATASE 165 U/L (46-116); ASPARTATE AMINOTRANSFERASE 28 U/L (15-37); BILIRUBIN,TOTAL 0.6 mg/dL (0.2-1.0); TOTAL PROTEIN, SERUM 8.5 g/dL (6.4-8.2)
[2017-02-01] MEDS: GENTAMICIN 0.1% OINT 15 GM TUBE TP SCH ×2 (09:00→17:00)
[2017-02-01] MEDS: LOSARTAN POTASSIUM 25 MG TABLET PO SCH (09:00)
[2017-02-01] MEDS: CARVEDILOL 6.25 MG TABLET PO SCH ×2 (09:00→17:00)
[2017-02-01] MEDS: HEPARIN SODIUM, PORCINE 5000 UNITS/1 ML VIAL SQ SCH ×2 (09:00→21:57)
[2017-02-01] MEDS: DAKINS QUARTER STRENGTH (0.125%) 480 ML BOTTLE TOP SCH ×2 (09:00→17:00)
[2017-02-01] MEDS: FUROSEMIDE 100 MG/10 ML VIAL IV SCH ×3 (10:36→18:43)
[2017-02-01] MEDS: ASCORBIC ACID 500 MG TABLET PO SCH (10:38)
[2017-02-01] MEDS: DOCUSATE SODIUM 100 MG CAPSULE PO SCH ×2 (10:38→18:45)
[2017-02-01] MEDS: DULOXETINE HCL 30 MG CAPSULE.DR PO SCH (10:39)
[2017-02-01] MEDS: CLOPIDOGREL BISULFATE 75 MG TABLET PO SCH (10:39)
[2017-02-01] MEDS: ASPIRIN 81 MG TAB.CHEW PO SCH (10:41)
[2017-02-01] MEDS: SPIRONOLACTONE 25 MG TABLET PO SCH (10:42)
[2017-02-01] MEDS: DRONEDARONE HYDROCHLORIDE 400 MG TABLET PO SCH ×2 (10:45→18:45)
--- NOTE | 2017-02-01 10:51 | NUR ---
RN NOTES: MR BETANCOURT REFUSING EARLIER TO TAKE MEDICATIONS. BENEFITS AND RISKS EXPLAINED MULTIPLE TIMES. PATIENT JUST AGREED TO TAKE MEDICATIONS, REFUSED HEPARIN. PATIENT REFUSED TO HAVE DRESSING CHANGED ON RIGHT FOOT. BENEFITS AND RISKS EXPLAINED TO PATIENT MULTIPLE TIMES. WILL CONTINUE TO OFFER
[2017-02-01] MEDS: LINEZOLID 600 MG TABLET PO SCH ×2 (11:59→21:52)
[2017-02-01] MEDS: BLOOD SUGAR DIAGNOSTIC 1 EACH STRIP IN SCH ×3 (12:00→21:57)
--- NOTE | 2017-02-01 13:00 | NUR ---
RN NOTES: PATIENT URINATED 1100 ML OF DAVEY CLEAR URINE. EARLIER PATIENT ASSESSED WITH BLADDER SCAN AND NOTED TO BE ABOUT 20 MLS. WILL CONTINUE TO MONITOR
--- NOTE | 2017-02-01 13:22 | NUR ---
BLOOD SUGAR 174, PATIENT REFUISNG INSULIN, STATING HE DOES NOT FEEL HUNGRY ENOUGH TO EAT, WILL OFFER FOOD AGAIN
[2017-02-01 16:00] VITALS: BP 115/81
[2017-02-01 16:38] LABS: APPEARANCE,URINE CLEAR (CLEAR); BILIRUBIN,URINE NEGATIVE (NEGATIVE); BLOOD, URINE NEGATIVE Ery/uL (NEGATIVE); COLOR,URINE YELLOW (YELLOW); KETONES,URINE NEGATIVE (NEGATIVE); LEUKOCYTE ESTERASE ,URINE NEGATIVE (NEGATIVE); NITRITE, URINE NEGATIVE (NEGATIVE); PH,URINE 5.5 (5.0-8.0); PROTEIN,URINE NEGATIVE (NEGATIVE); UGLUCOSE NEGATIVE (NEGATIVE); UROBILINOGEN,URINE 0.2 EU/dL (0.2)
--- NOTE | 2017-02-01 17:53 | NUR ---
RN NOTES: DR POOLE DID A DEBRIDEMENT ON PATIENT'S RIGHT FOOT. BEDSIDE PROCEDURE TOLERATED WELL. NO SIGNS OF DISTRESS. DRESSING INTACT. WILL CONTINUE TO MONITOR
[2017-02-01] MEDS ORDERED: FUROSEMIDE 100 MG/10 ML VIAL IV SCH (19:00)
--- NOTE | 2017-02-01 19:20 | NUR ---
RN NOTES PATIENT RESTING IN BED. DENIES PAIN. NO SIGNS OF DISTRESS NOTED. PATIENT ALERT ORIENTED X3 WITH PERIODS OF CONFUSION. IV SITES PATENT AND INTACT. PATIENT EDUCATED TO KEEP RIGHT EXTREMITY ELEVATED PER DR POOLE. DRESSING INTACT. NO SIGNS OF BLEEDING NOTED. DR POOLE STATED TO WRAP IT WITH ANOTHER MINNIE BANDAGE IF BLOOD IS NOTED. DURING SHIFT, PATIENT ENCOURAGED TO TURN AND REPOSITION. KEPT CLEAN AND DRY. BENEFITS AND RISKS EXPLAINED IN LENGTH REGARDING MEDICATIONS. BED IN LOWEST LOCKED POSITION. CALL LIGHT WITHIN REACH. PER DR POOLE,CULTURE TO BE COLLECTED TOMORROW. ENDORSED TO NEXT SHIFT.
--- NOTE | 2017-02-01 19:20 | NUR ---
RN NOTES PATIENT RESTING IN BED. DENIES PAIN. NO SIGNS OF DISTRESS NOTED. PATIENT ALERT ORIENTED X3. IV SITES PATENT AND INTACT. PATIENT EDUCATED TO KEEP RIGHT EXTREMITY ELEVATED PER DR POOLE. DRESSING INTACT. NO SIGNS OF BLEEDING NOTED. DR POOLE STATED TO WRAP IT WITH ANOTHER MINNIE BANDAGE IF BLOOD IS NOTED. DURING SHIFT, PATIENT ENCOURAGED TO TURN AND REPOSITION. KEPT CLEAN AND DRY. BENEFITS AND RISKS EXPLAINED IN LENGTH REGARDING MEDICATIONS. BED IN LOWEST LOCKED POSITION. CALL LIGHT WITHIN REACH. PER DR POOLE,CULTURE TO BE COLLECTED TOMORROW. ENDORSED TO NEXT SHIFT.
--- NOTE | 2017-02-01 19:30 | NUR ---
RN NOTES RECEIVED PATIENT UP IN BED, AO X 3, ABLE TO MAKE NEEDS KNOWN. NO ACUTE DISTRESS NOTED. DENIES ANY PAIN AT THIS TIME. NO SYMPTOMS OF HYPER/HYPOGLYCEMIA. SAFETY REMINDERS GIVEN. IV SITES PATENT, INTACT; FLUSHED. SAFETY REMINDERS GIVEN. ON LOW BED WITH BILATERAL UPPER SIDE RAILS UP. CALL LIGHT BUTTON WITHIN EASY REACH. WILL CONTINUE TO MONITOR.
[2017-02-01 20:00] VITALS: BP 110/67
--- NOTE | 2017-02-01 20:34 | NUR ---
RN NOTES PATIENT RESTING IN BED. DENIES PAIN. NO SIGNS OF DISTRESS NOTED. PATIENT ALERT ORIENTED X3 WITH PERIODS OF CONFUSION. IV SITES PATENT AND INTACT. PATIENT ON TELE READING SR WITH PVCS. BED IN LOWEST LOCKED POSITION. CALL LIGHT WITHIN REACH. WILL CONTINUE TO MONITOR.
[2017-02-01] MEDS: ATORVASTATIN 40 MG TABLET PO SCH (21:52)
[2017-02-01] MEDS: TAMSULOSIN 0.4 MG CAP.SR.24H PO SCH (21:52)
--- NOTE | 2017-02-02 00:30 | NUR ---
RN NOTES PATIENT ACCIDENTALLY VOIDED ON FLOOR, BECAUSE HE WAS UNABLE TO VOID INTO URINAL COMPLETELY. 200 ML URINE IN URINAL. LARGE URINE OUTPUT ON FLOOR. PATIENT VERBALIZED FEELING EMPTY AFTER VOIDING. PATIENT CLEANED, DRIED AND MADE COMFORTABLE.
[2017-02-02] MEDS ORDERED: VANCOMYCIN 1.5 GM in IV D5W 500 ML IV SCH (03:00)
[2017-02-02] MEDS: PIPERACILLIN /TAZOBACTAM 2.25 G in IV D5W 50 ML IV SCH ×4 (04:45→20:57)
--- NOTE | 2017-02-02 06:15 | NUR ---
RN NOTES PATIENT ASLEEP, AROUSABLE. RESPIRATIONS EVEN. NO SIGNS OF PAIN NOTED. NO SYMPTOMS OF HYPER/HYPOGLYCEMIA NOTED. DUE MEDS GIVEN WITH NO ASE NOTED. NEEDS ATTENDED. KEPT CLEAN AND DRY. SAFETY PRECAUTIONS AND COMFORT MEASURES IN PLACE. CONTACT ISOLATION FOR VRE IN RIGHT FOOT WOUND MAINTAINED. WILL GIVE REPORT TO DAY SHIFT FOR CONTINUITY OF CARE.
[2017-02-02] MEDS: BLOOD SUGAR DIAGNOSTIC 1 EACH STRIP IN SCH ×4 (06:35→21:40)
[2017-02-02] MEDS: LEVOTHYROXINE SODIUM 100 MCG TABLET PO SCH (06:38)
[2017-02-02] MEDS: INSULIN REGULAR, HUMAN 100 UNIT/ML 3 ML VIAL SQ PRN ×3 (06:39→17:00)
--- NOTE | 2017-02-02 07:51 | NUR ---
MS RN OPENING NOTES RECEIVED PT FROM NIGHTSHIFT NURSE IN STABLE CONDITION. PT IS A/O X3. NO SOB OR SIGNS OF DISTRESS NOTED. BREATHING IS EVEN AND UNLABORED. PT IS ON 2L O2 VIA NC AND SATING ABOVE 92%. HE DENIES ANY PAIN AT THIS TIME. IV NOTED ON LEFT AC 22G SL. IV IS PATENT AND INTACT. NO REDNESS OR SIGNS OF DISTRESS NOTED. DRESSING ON RIGHT FOOT IS NOTED TO BE DRY, CLEAN, AND INTACT. BED IN LOW LOCKED POSITION, SIDE RAILS UP X3, CALL LIGHT WITHIN REACH. WILL CONTINUE TO MONITOR
[2017-02-02 07:58] LABS: EOSINOPHILS # (AUTO) 0.1 /CMM (0.0-0.7); EOSINOPHILS % (AUTO) 0.7 % (0.0-6.0); HEMATOCRIT 22 % (39-51); HEMOGLOBIN 7.2 g/dL (13.5-17.5); LYMPHOCYTES # (AUTO) 0.6 /CMM (0.8-4.8); LYMPHOCYTES % (AUTO) 4.5 % (20.0-44.0); MEAN CORPUSCULAR HEMOGLOBIN 26 PG (26.0-33.0); MEAN CORPUSCULAR HGB CONC 32 g/dl (31.0-36.0); MEAN CORPUSCULAR VOLUME 80 fL (80-96); MONOCYTES # (AUTO) 0.7 /CMM (0.1-1.30); MONOCYTES % (AUTO) 5.6 % (2.0-12.0); NEUTROPHILS # (AUTO) 11.5 /CMM (1.8-8.9); NEUTROPHILS % (AUTO) 89.2 % (43.0-81.0); PLATELET COUNT (AUTO) 209 /CMM (150-450); RDW COEFFICIENT OF VARIATION 19.7 (11.5-15.0); RED BLOOD CELL COUNT(AUTO) 2.78 MIL/uL (4.5-6.0); WHITE BLOOD COUNT (AUTO) 12.9 K/uL (4.3-11.0)
[2017-02-02 08:00] VITALS: BP 108/69
[2017-02-02 08:13] LABS: ALANINE AMINOTRANSFERASE 34 U/L (12-78); ALKALINE PHOSPHATASE 160 U/L (46-116); ASPARTATE AMINOTRANSFERASE 20 U/L (15-37); BILIRUBIN,TOTAL 0.6 mg/dL (0.2-1.0); CALCIUM, SERUM 8.2 mg/dL (8.5-10.1); CARBON DIOXIDE 27 mmol/L (21-32); CHLORIDE 102 mmol/L (98-107); CREATININE 2.8 mg/dL (0.6-1.3); GLUCOSE 135 mg/dL (74-106); MAGNESIUM 2.4 mg/dL (1.8-2.4); SODIUM SERUM 139 mmol/L (136-145); TOTAL PROTEIN, SERUM 8.4 g/dL (6.4-8.2); UREA NITROGEN, BLOOD 58 mg/dL (7-18)
[2017-02-02] MEDS: HEPARIN SODIUM, PORCINE 5000 UNITS/1 ML VIAL SQ SCH ×2 (09:00→21:01)
[2017-02-02] MEDS: CARVEDILOL 6.25 MG TABLET PO SCH ×2 (09:00→16:34)
--- NOTE | 2017-02-02 09:08 | NUR ---
MS RN NOTES DR. MARTIN WAS CALLED IN REGARDS TO PT'S AM DOSE OF HEPARIN. PER "HOLD AM DOSE I WILL BE DOING A DEBRIDEMENT TODAY".
[2017-02-02] MEDS: DULOXETINE HCL 30 MG CAPSULE.DR PO SCH (10:07)
[2017-02-02] MEDS: DOCUSATE SODIUM 100 MG CAPSULE PO SCH ×2 (10:07→16:46)
[2017-02-02] MEDS: CLOPIDOGREL BISULFATE 75 MG TABLET PO SCH (10:08)
[2017-02-02] MEDS: ASPIRIN 81 MG TAB.CHEW PO SCH (10:08)
[2017-02-02] MEDS: LINEZOLID 600 MG TABLET PO SCH ×2 (10:08→20:58)
[2017-02-02] MEDS: ASCORBIC ACID 500 MG TABLET PO SCH (10:08)
[2017-02-02] MEDS: DRONEDARONE HYDROCHLORIDE 400 MG TABLET PO SCH ×2 (10:09→16:47)
[2017-02-02] MEDS: DAKINS QUARTER STRENGTH (0.125%) 480 ML BOTTLE TOP SCH ×2 (10:10→16:47)
[2017-02-02] MEDS: GENTAMICIN 0.1% OINT 15 GM TUBE TP SCH ×2 (10:11→16:47)
[2017-02-02] MEDS: FUROSEMIDE 100 MG/10 ML VIAL IV SCH ×3 (10:21→16:32)
--- NOTE | 2017-02-02 11:28 | NUR ---
MS RN NOTES DR. MARTIN IN ROOM WITH PT FOR SCHEDULED DEBRIDEMENT
--- NOTE | 2017-02-02 11:37 | NUR ---
MS RN NOTES DEBRIDEMENT COMPLETE HOWEVER PT REFUSES POST DEBRIDEMENT PHOTO. DRESSING APPLIED BY WOUND CARE NURSE
--- NOTE | 2017-02-02 12:28 | NUR ---
DIRECTOR OF SPECIAL EVENTS RIGHT FOOT WOUND TREATMENT ORDERS CLARIFIED WITH DR MARTIN. ALL DISCUSSED WITH NURSING STAFF.
[2017-02-02 12:29] LABS: IRON, SERUM 16 ug/dl (50-175); TOTAL IRON BINDING CAPACITY 284 ug/dl (250-450)
[2017-02-02 12:42] LABS: FERRITIN 100 ng/mL (8-388)
[2017-02-02 16:00] VITALS: BP 97/55
--- NOTE | 2017-02-02 16:32 | NUR ---
MS RN NOTES 1300 AND 1700 LASIX WERE NOT ADMINISTERED DUE TO LOW BP. PT'S BP AT 1300 WAS 90/59 WITH A HR OF 67. IT IS NOW 97/55, HR 67.
--- NOTE | 2017-02-02 18:19 | NUR ---
MS RN CLOSING NOTES PT REMAINS IN STABLE CONDITION. ALL NEEDS WERE MET DURING SHIFT AND ORDERS CARRIED OUT ACCORDINGLY. ISOLATION PRECAUTIONS MAINTAINED THROUGHOUT SHIFT. WOUND AND SKIN CARE RENDERED ORDERED. WOUND CULTURE TAKEN BY FERRYBOAT TICKET TAKER. RESULTS PENDING. WOUND DRESSING REMAINS DRY, CLEAN, AND INTACT. SAFETY MEASURES REMAIN IN PLACE. WILL ENDORSE TO NIGHTSHIFT NURSE FOR CRYSTAL
--- NOTE | 2017-02-02 19:30 | NUR ---
RN NOTES: RECEIVED AWAKE, SITTING POSITION WITH RLE DANGLING ON THE BED,S/P DEBRIDEMENT,SITE DRY AND INTACT,PATIENT HAS LEFT BKA, ON O2 AT 2L/MIN,SPO2-96%, NO SIGN OF RESPIRATORY DISTRESS NOTED,A/OX2,UPON ENDORSEMENT HE LOOKS DROWSY AND SLEEPY, CALL LIGHT IS WITHIN REACH,BED LOW AND LOCKED, ISOLATION PRECAUTION FOR VRE-RIGHT FOOT OBSERVED.KEPT ON CLOSE WATCH.
[2017-02-02 20:00] VITALS: BP 87/69
--- NOTE | 2017-02-02 20:00 | NUR ---
RN NOTES: ASSISTED BY PHOTO MASK PROCESSOR FOR TOILETING.KEPT CALL LIGHT WITHIN EASY REACH,BP IS LOW ENCOURAGE TO DRINK ORAL FLUIDS AND ENCOURAGE TO KEEP RLE ON THE BED NOT ON DANGLING POSITION.
[2017-02-02] MEDS: ATORVASTATIN 40 MG TABLET PO SCH (20:58)
--- NOTE | 2017-02-02 21:05 | NUR ---
RN NOTES: TRYING TO SLEEP IN BETWEEN,HE WANTS TO BE IN SITTING POSITION ENCOURAGE TO LIKE DOWN AND PUT IN HIGH FOWLERS POSITION BUT HE PREFERS TO SIT AND DANGLE HIS RLE DOWN THE BED, NO SOB NOTED, LOOKS CONFUSE BUT WHEN CALLED AND ASKED IF HOW HE FEELS HE SAID"IM OK I JUST CANT SLEEP WELL", KEPT MONITORED.
[2017-02-02] MEDS: TAMSULOSIN 0.4 MG CAP.SR.24H PO SCH (21:31)
[2017-02-02] MEDS: *INSULIN REGULAR(HUMULIN R)HUM 100 UNIT/ML VIAL SQ PRN (21:41)
--- NOTE | 2017-02-02 21:43 | NUR ---
RN NOTES: BLOOD SUGAR AXHUDIK=746, NO INSULIN GIVEN PER SCALE, WILL CONTINUE TO MONITOR FOR SIGN OF HYPER AND HYPOGLYCEMIA.
[2017-02-03] MEDS: PIPERACILLIN /TAZOBACTAM 2.25 G in IV D5W 50 ML IV SCH ×4 (03:15→21:50)
[2017-02-03 04:00] VITALS: BP 109/58
--- NOTE | 2017-02-03 04:49 | NUR ---
RN NOTES: MORNING CARE DONE, HE LOOKS MORE AWAKE, LATEST BP-109/58, HE WAS ABLE TO PEE-190CC.CALLS AND NEEDS ATTENDED.
[2017-02-03] MEDS: BLOOD SUGAR DIAGNOSTIC 1 EACH STRIP IN SCH ×4 (06:04→21:52)
[2017-02-03] MEDS: INSULIN REGULAR, HUMAN 100 UNIT/ML 3 ML VIAL SQ PRN ×3 (06:07→17:35)
--- NOTE | 2017-02-03 06:08 | NUR ---
RN NOTES: BLOOD SUGAR CHECK-107,NO INSULIN GIVEN PER SCALE, MORNING CARE DONE, CLEAN AND CHANGE,ABLE TO NAP AT SHORT INTERVALS, MORE ALERT NOW WHEN HE WAKE UP COMPARED LAST NIGHT.CALL LIGHT WITHIN EASY REACH.
--- NOTE | 2017-02-03 06:38 | NUR ---
RN NOTES: CHEST X-RAY DONE, TO FOLLOW UP RESULT, ENDORSED ASLEEP ON BED,ON SEMI FOWLERS POSITION,NO SIGN OF RESPIRATORY DISTRESS, CALL LIGHT WITHIN EASY REACH.
--- NOTE | 2017-02-03 07:36 | NUR ---
MS RN OPENING NOTES RECEIVED PATIENT IN STABLE CONDITION. IN NO APPARENT DISTRESS. PATIENT IS RESTING IN BED. BEDSIDE RAILS ARE UP X2. BED IS LOCKED AND LOWERED. CALL LIGHT IS WITHIN REACH. WILL CONTINUE TO MONITOR.
[2017-02-03 07:50] LABS: CALCIUM, SERUM 7.8 mg/dL (8.5-10.1); CARBON DIOXIDE 28 mmol/L (21-32); CHLORIDE 103 mmol/L (98-107); CREATININE 2.7 mg/dL (0.6-1.3); GLUCOSE 113 mg/dL (74-106); POTASSIUM 4.6 mmol/L (3.5-5.1); SODIUM SERUM 139 mmol/L (136-145); UREA NITROGEN, BLOOD 59 mg/dL (7-18)
[2017-02-03 08:00] VITALS: BP 109/61
[2017-02-03] MEDS: CLOPIDOGREL BISULFATE 75 MG TABLET PO SCH (08:00)
[2017-02-03] MEDS: ASPIRIN 81 MG TAB.CHEW PO SCH (08:01)
[2017-02-03] MEDS: HEPARIN SODIUM, PORCINE 5000 UNITS/1 ML VIAL SQ SCH ×2 (08:01→22:12)
[2017-02-03] MEDS: LEVOTHYROXINE SODIUM 100 MCG TABLET PO SCH (08:01)
[2017-02-03] MEDS: DOCUSATE SODIUM 100 MG CAPSULE PO SCH ×2 (08:01→15:56)
[2017-02-03] MEDS: DULOXETINE HCL 30 MG CAPSULE.DR PO SCH (08:01)
[2017-02-03] MEDS: LINEZOLID 600 MG TABLET PO SCH ×2 (08:01→21:50)
[2017-02-03] MEDS: DRONEDARONE HYDROCHLORIDE 400 MG TABLET PO SCH ×2 (08:01→15:57)
[2017-02-03] MEDS: ASCORBIC ACID 500 MG TABLET PO SCH (08:01)
[2017-02-03] MEDS: CARVEDILOL 6.25 MG TABLET PO SCH ×2 (08:02→15:57)
[2017-02-03] MEDS: DAKINS QUARTER STRENGTH (0.125%) 480 ML BOTTLE TOP SCH ×2 (08:04→15:58)
[2017-02-03] MEDS: GENTAMICIN 0.1% OINT 15 GM TUBE TP SCH ×2 (08:04→15:58)
[2017-02-03] MEDS: METOLAZONE 2.5 MG TABLET PO SCH (08:17)
[2017-02-03] MEDS: FUROSEMIDE 100 MG/10 ML VIAL IV SCH ×3 (08:25→15:56)
--- NOTE | 2017-02-03 10:00 | NUR ---
WOUND DEBRIDEMENT BEING PERFORMED AT BEDSIDE OF THE RIGHT FOOT.
[2017-02-03 13:28] LABS: APPEARANCE,URINE CLEAR (CLEAR); BILIRUBIN,URINE NEGATIVE (NEGATIVE); BLOOD, URINE NEGATIVE Ery/uL (NEGATIVE); COLOR,URINE YELLOW (YELLOW); KETONES,URINE NEGATIVE (NEGATIVE); LEUKOCYTE ESTERASE ,URINE NEGATIVE (NEGATIVE); NITRITE, URINE NEGATIVE (NEGATIVE); PH,URINE 5.5 (5.0-8.0); PROTEIN,URINE NEGATIVE (NEGATIVE); UGLUCOSE NEGATIVE (NEGATIVE); UROBILINOGEN,URINE 0.2 EU/dL (0.2)
[2017-02-03 14:48] LABS: CREATININE, URINE 25.3 MG/DL (30.0-125.0); URINE TOTAL PROTEIN 6.1 mg/dL (0-11.9)
[2017-02-03 15:15] LABS: EOSINOPHIL,URINE None Seen
[2017-02-03 16:00] VITALS: BP 132/71
--- NOTE | 2017-02-03 18:47 | NUR ---
MS RN CLOSING NOTES PATIENT IS IN STABLE CONDITION. IN NO APPARENT DISTRESS. BEDSIDE RAILS ARE UP X2. BED IS LOCKED AND LOWERED. ALL NEEDS WERE MET. CALL LIGHT IS WITHIN REACH. WILL ENDORSE CARE TO TAB CARD PRESS OPERATOR NURSE FOR CRSYTAL.
--- NOTE | 2017-02-03 19:30 | NUR ---
RN NOTE; RECEIVED PT IN BED AWAKE AND ALERT. SITTING IN BED. BREATHING EVENLY. NO SOB. NAD. SKIN WARM AND DRY. DRESSING ON RLE INTACT AND PATENT. DENIED ANY PAIN OR DISCOMFORT. NEEDS ATTENDED. BED LOW LOCKED. CALL LIGHT WITHIN REACH. WILL CONT TO MONITOR,
[2017-02-03 20:00] VITALS: BP 114/57
[2017-02-03] MEDS: TAMSULOSIN 0.4 MG CAP.SR.24H PO SCH (21:50)
[2017-02-03] MEDS: ATORVASTATIN 40 MG TABLET PO SCH (21:50)
[2017-02-03] MEDS: *INSULIN REGULAR(HUMULIN R)HUM 100 UNIT/ML VIAL SQ PRN (21:57)
--- NOTE | 2017-02-03 22:10 | NUR ---
SPOKE TO SAURABH SHELLEY CALIBRATION TECHNICIAN ON THE FLOOR REGARDING LOW H/H AND HIGH APTT AND ASKED HIM IF HEPARIN SHOULD BE STILL GIVEN OR TO BE HELD FOR NOW. CALIBRATION TECHNICIAN REVIEWED PT'S CHART AND OK'D TO GIVE THE HEPARIN SUBQ. NO ACTIVE BLEEDING NOTED AT THIS TIME.
[2017-02-04] MEDS: PIPERACILLIN /TAZOBACTAM 2.25 G in IV D5W 50 ML IV SCH ×4 (03:29→21:06)
--- NOTE | 2017-02-04 06:20 | NUR ---
PT SITTING AT THE EDGE OF THE BED AWAKE AND ALERT. BREATHING EVENLY. NO SOB. NAD. SKIN WARM AND DRY. DRESSING ON THE R LEG INTACT, CLEAN AND DRY. NO C/O PAIN OR DISCOMFORT. NO S/S OF HYPO OR HYPERGLYCEMIA. NEED ATTENDED . ASSISTED W/ ADLS. CALL LIGHT WITHIN REACH. WILL CONT TO MONITOR AND WILL ENDORSE TO AM SHIFT FOR CRYSTAL.
[2017-02-04] MEDS: BLOOD SUGAR DIAGNOSTIC 1 EACH STRIP IN SCH ×4 (07:07→21:07)
[2017-02-04 07:14] LABS: BASOPHILS % (AUTO) 0.1 % (0.0-2.0); EOSINOPHILS # (AUTO) 0.1 /CMM (0.0-0.7); EOSINOPHILS % (AUTO) 1.5 % (0.0-6.0); HEMATOCRIT 22 % (39-51); LYMPHOCYTES # (AUTO) 0.9 /CMM (0.8-4.8); LYMPHOCYTES % (AUTO) 9.3 % (20.0-44.0); MEAN CORPUSCULAR HEMOGLOBIN 25 PG (26.0-33.0); MEAN CORPUSCULAR HGB CONC 32 g/dl (31.0-36.0); MEAN CORPUSCULAR VOLUME 79 fL (80-96); MONOCYTES # (AUTO) 0.6 /CMM (0.1-1.30); MONOCYTES % (AUTO) 6.4 % (2.0-12.0); NEUTROPHILS # (AUTO) 7.9 /CMM (1.8-8.9); NEUTROPHILS % (AUTO) 82.7 % (43.0-81.0); PLATELET COUNT (AUTO) 235 /CMM (150-450); RDW COEFFICIENT OF VARIATION 19.5 (11.5-15.0); RED BLOOD CELL COUNT(AUTO) 2.77 MIL/uL (4.5-6.0); WHITE BLOOD COUNT (AUTO) 9.6 K/uL (4.3-11.0)
[2017-02-04 07:48] LABS: ALANINE AMINOTRANSFERASE 25 U/L (12-78); ALBUMIN 2.8 g/dL (3.4-5.0); ALKALINE PHOSPHATASE 134 U/L (46-116); ASPARTATE AMINOTRANSFERASE 17 U/L (15-37); BILIRUBIN,TOTAL 0.4 mg/dL (0.2-1.0); CARBON DIOXIDE 28 mmol/L (21-32); CHLORIDE 102 mmol/L (98-107); CREATININE 2.6 mg/dL (0.6-1.3); GLUCOSE 123 mg/dL (74-106); MAGNESIUM 2.5 mg/dL (1.8-2.4); PHOSPHORUS 4.4 mg/dL (2.5-4.9); POTASSIUM 4.2 mmol/L (3.5-5.1); SODIUM SERUM 140 mmol/L (136-145); TOTAL PROTEIN, SERUM 8.4 g/dL (6.4-8.2); UREA NITROGEN, BLOOD 57 mg/dL (7-18)
[2017-02-04 08:00] VITALS: BP 123/63
[2017-02-04] MEDS: DRONEDARONE HYDROCHLORIDE 400 MG TABLET PO SCH ×2 (08:13→16:06)
[2017-02-04] MEDS: METOLAZONE 2.5 MG TABLET PO SCH (08:14)
[2017-02-04] MEDS: LEVOTHYROXINE SODIUM 100 MCG TABLET PO SCH (08:14)
[2017-02-04] MEDS: CLOPIDOGREL BISULFATE 75 MG TABLET PO SCH (08:14)
[2017-02-04] MEDS: CARVEDILOL 6.25 MG TABLET PO SCH ×2 (08:14→16:07)
[2017-02-04] MEDS: DOCUSATE SODIUM 100 MG CAPSULE PO SCH ×2 (08:14→16:06)
[2017-02-04] MEDS: DULOXETINE HCL 30 MG CAPSULE.DR PO SCH (08:15)
[2017-02-04] MEDS: ASCORBIC ACID 500 MG TABLET PO SCH (08:15)
[2017-02-04] MEDS: LINEZOLID 600 MG TABLET PO SCH ×2 (08:15→21:07)
[2017-02-04] MEDS: ASPIRIN 81 MG TAB.CHEW PO SCH (08:15)
[2017-02-04] MEDS: DAKINS QUARTER STRENGTH (0.125%) 480 ML BOTTLE TOP SCH ×2 (08:15→16:07)
[2017-02-04] MEDS: GENTAMICIN 0.1% OINT 15 GM TUBE TP SCH ×2 (08:16→16:07)
[2017-02-04] MEDS: HEPARIN SODIUM, PORCINE 5000 UNITS/1 ML VIAL SQ SCH ×2 (08:40→21:00)
[2017-02-04] MEDS: INSULIN REGULAR, HUMAN 100 UNIT/ML 3 ML VIAL SQ PRN ×2 (13:04→16:43)
[2017-02-04] MEDS: SOD FERRIC GLUC 125 MG in IV NS 0.9% 100 ML IV SCH (14:23)
[2017-02-04 16:00] VITALS: BP 143/75
[2017-02-04] MEDS: LACTOBACILLUS RHAMNOSUS GG 1 EACH CAP.SPRINK PO SCH (16:06)
[2017-02-04] MEDS: HYDROCODONE/APAP 5/325MG 1 EACH TABLET PO PRN ×2 (16:06→21:06)
--- NOTE | 2017-02-04 18:00 | NUR ---
PATIENT SIGNED WAIVER TO SMOKE. PATIENTS FAMILY BROUGHT OWN WHEELCHAIR. TOOK PATIENT OUTSIDE TO SMOKE FOR 10 MINUTES. RETURNED PATIENT BACK TO HIS ROOM.
--- NOTE | 2017-02-04 18:49 | NUR ---
MS RN CLOSING NOTES PATIENT IS IN STABLE CONDITION. IN NO APPARENT DISTRESS. PATIENT IS RELAXING IN BED. CALL LIGHT IS WITHIN REACH BEDSIDE RAILS ARE UP X2. BED IS LOCKED AND LOWERED. ALL NEEDS WERE MET. WILL ENDORSE CARE TO REHAB THERAPIST NURSE FOR CRYSTAL.
--- NOTE | 2017-02-04 19:30 | NUR ---
MS RN OPENING NOTES RECEIVED PATIENT IN STABLE CONDITION. IN NO APPARENT DISTRESS. DRESSING TO RIGHT FOOT C/D/I. PATIENT IS RESTING IN BED. BEDSIDE RAILS ARE UP X2. BED IS LOCKED AND LOWERED. CALL LIGHT IS WITHIN REACH. WILL CONTINUE TO MONITOR.
[2017-02-04 20:00] VITALS: BP 113/65
[2017-02-04] MEDS: ATORVASTATIN 40 MG TABLET PO SCH (21:06)
[2017-02-04] MEDS: TAMSULOSIN 0.4 MG CAP.SR.24H PO SCH (21:06)
[2017-02-04] MEDS: *INSULIN REGULAR(HUMULIN R)HUM 100 UNIT/ML VIAL SQ PRN (21:15)
--- NOTE | 2017-02-04 22:00 | NUR ---
MS RN NOTE HELD HEPARIN. Hgb 7.0
[2017-02-05] MEDS: PIPERACILLIN /TAZOBACTAM 2.25 G in IV D5W 50 ML IV SCH ×4 (02:57→16:33)
[2017-02-05] MEDS: BLOOD SUGAR DIAGNOSTIC 1 EACH STRIP IN SCH ×4 (05:58→21:23)
--- NOTE | 2017-02-05 06:25 | NUR ---
MS RN NOTE PATIENT STABLE. DENIES ANY PAIN OR DISCOMFORT AT THIS TIME. REFUSES TO LAY BACK IN BED. LIKES TO SIT UP. EXPLAINED SAFETY ISSUES TO PATIENT. KEPT CLEAN, DRY AND COMFORTABLE. DRESSING TO RIGHT FOOT C/D/I/. WILL ENDORSE TO DAY SHIFT FOR CRYSTAL.
--- NOTE | 2017-02-05 06:26 | NUR ---
MS RN NOTE BLOOD SUGAR 201. WILL ADMINISTER 8 UNITS OF REGULAR INSULIN.
[2017-02-05] MEDS: INSULIN REGULAR, HUMAN 100 UNIT/ML 3 ML VIAL SQ PRN ×3 (06:52→16:40)
[2017-02-05 07:28] LABS: BASOPHILS % (AUTO) 0.4 % (0.0-2.0); EOSINOPHILS # (AUTO) 0.1 /CMM (0.0-0.7); EOSINOPHILS % (AUTO) 1.7 % (0.0-6.0); HEMATOCRIT 24 % (39-51); HEMOGLOBIN 7.3 g/dL (13.5-17.5); LYMPHOCYTES # (AUTO) 0.9 /CMM (0.8-4.8); LYMPHOCYTES % (AUTO) 12.6 % (20.0-44.0); MEAN CORPUSCULAR HEMOGLOBIN 25 PG (26.0-33.0); MEAN CORPUSCULAR HGB CONC 31 g/dl (31.0-36.0); MEAN CORPUSCULAR VOLUME 81 fL (80-96); MONOCYTES # (AUTO) 0.4 /CMM (0.1-1.30); MONOCYTES % (AUTO) 5.1 % (2.0-12.0); NEUTROPHILS # (AUTO) 5.9 /CMM (1.8-8.9); NEUTROPHILS % (AUTO) 80.2 % (43.0-81.0); PLATELET COUNT (AUTO) 237 /CMM (150-450); RDW COEFFICIENT OF VARIATION 19.8 (11.5-15.0); RED BLOOD CELL COUNT(AUTO) 2.94 MIL/uL (4.5-6.0); WHITE BLOOD COUNT (AUTO) 7.3 K/uL (4.3-11.0)
[2017-02-05 07:58] LABS: ALANINE AMINOTRANSFERASE 22 U/L (12-78); ALBUMIN 2.6 g/dL (3.4-5.0); ALKALINE PHOSPHATASE 117 U/L (46-116); ASPARTATE AMINOTRANSFERASE 18 U/L (15-37); BILIRUBIN,TOTAL 0.3 mg/dL (0.2-1.0); CALCIUM, SERUM 7.7 mg/dL (8.5-10.1); CARBON DIOXIDE 26 mmol/L (21-32); CHLORIDE 102 mmol/L (98-107); GLUCOSE 158 mg/dL (74-106); MAGNESIUM 2.5 mg/dL (1.8-2.4); PHOSPHORUS 3.8 mg/dL (2.5-4.9); POTASSIUM 4.2 mmol/L (3.5-5.1); SODIUM SERUM 140 mmol/L (136-145); TOTAL PROTEIN, SERUM 8.3 g/dL (6.4-8.2); UREA NITROGEN, BLOOD 49 mg/dL (7-18)
[2017-02-05 08:00] VITALS: BP 111/60
--- NOTE | 2017-02-05 08:00 | NUR ---
MS RN NOTES PATIENT IN BED RESTING NO SOB OR ACUTE DISTRESS NOTED. PATIENT ALERT, ORIENTED X3 DENIES ANY PAIN OR DISCOMFORT. PATIENT WITH PERIPHERAL IV ON LEFT FOREARM INTACT PATENT. BED IN LOW LOCKED POSITION. CALL LIGHT WITHIN REACH WILL CONTINUE TO MONITOR.
[2017-02-05] MEDS: HEPARIN SODIUM, PORCINE 5000 UNITS/1 ML VIAL SQ SCH ×2 (09:00→21:00)
[2017-02-05] MEDS: CLOPIDOGREL BISULFATE 75 MG TABLET PO SCH (09:09)
[2017-02-05] MEDS: LACTOBACILLUS RHAMNOSUS GG 1 EACH CAP.SPRINK PO SCH ×2 (09:09→16:38)
[2017-02-05] MEDS: LINEZOLID 600 MG TABLET PO SCH (09:09)
[2017-02-05] MEDS: DULOXETINE HCL 30 MG CAPSULE.DR PO SCH (09:09)
[2017-02-05] MEDS: ASCORBIC ACID 500 MG TABLET PO SCH (09:10)
[2017-02-05] MEDS: ASPIRIN 81 MG TAB.CHEW PO SCH (09:10)
[2017-02-05] MEDS: METOLAZONE 2.5 MG TABLET PO SCH (09:10)
[2017-02-05] MEDS: CARVEDILOL 6.25 MG TABLET PO SCH ×2 (09:10→16:38)
[2017-02-05] MEDS: DOCUSATE SODIUM 100 MG CAPSULE PO SCH ×2 (09:10→16:38)
[2017-02-05] MEDS: DRONEDARONE HYDROCHLORIDE 400 MG TABLET PO SCH ×2 (09:13→16:38)
[2017-02-05] MEDS: LEVOTHYROXINE SODIUM 100 MCG TABLET PO SCH (09:14)
[2017-02-05] MEDS: DAKINS QUARTER STRENGTH (0.125%) 480 ML BOTTLE TOP SCH ×2 (09:15→16:34)
[2017-02-05] MEDS: GENTAMICIN 0.1% OINT 15 GM TUBE TP SCH ×2 (09:15→16:35)
[2017-02-05] MEDS: FUROSEMIDE 80 MG TABLET PO SCH (09:49)
--- NOTE | 2017-02-05 12:00 | NUR ---
MS RN NOTES PATIENT SEEN AND EVALUATED BY DR. MCCANN ORDERS NOTED AND CARRIED OUT.
[2017-02-05] MEDS: SOD FERRIC GLUC 125 MG in IV NS 0.9% 100 ML IV SCH (14:33)
[2017-02-05 16:00] VITALS: BP 98/65
--- NOTE | 2017-02-05 16:00 | NUR ---
MS RN NOTES CALLED DR. FARRELL ASKING IF OK TO CHANGE PATIENTS DRESSING LOOKS SOILED. DR. FARRELL STATES OK TO CHANGE DRESSING, DRESSING: CLEANSE WITH DAKINS, WET TO DRY DRESSING WITH DAKINS. NOTED AND CARRIED OUT. PATIENT TOLERATED WELL.
--- NOTE | 2017-02-05 19:30 | NUR ---
RN OPENING NOTES PATIENT IS IN BED, ALERT AND ORIENTEDX3. VS STABLE. NO C/O PAIN AT THIS TIME. NO SOB NOTED. RESPIRATIONS EVEN AND UNLABORED. IV ACCESS ON LFA PATENT AND INTACT, NO REDNESS OR INFILTRATION NOTED. SKIN CLEAN AND DRY, DRESSING CHANGE INTACT. BED IN LOW AND LOCKED POSITION, SIDE RAILSX2. CALL LIGHT WITHIN EASY REACH. WILL CONTINUE TO MONITOR AND ASSESS DURING THE SHIFT.
--- NOTE | 2017-02-05 19:35 | NUR ---
MS RN NOTES PATIENT IN BED RESTING COMFORTABLE NO SOB OR ACUTE DISTRESS NOTED. AL DUE MEDICATIONS ADMINISTERED. ALL NEEDS MET. IV INTACT PATENT. ENDORSED CARE TO PM SHIFT.
[2017-02-05] MEDS: CEFTRIAXONE 1 G in IV D5W 50 ML IV SCH (19:58)
[2017-02-05 20:00] VITALS: BP 108/64
[2017-02-05] MEDS: AMPICILLIN SODIUM 1 GM in IV NS 0.9% 100 ML IV SCH (20:58)
--- NOTE | 2017-02-05 21:02 | NUR ---
RN NOTES HELD HEPARIN. HGB 7.3, CONTINUE TO MONITOR.
[2017-02-05] MEDS: *INSULIN REGULAR(HUMULIN R)HUM 100 UNIT/ML VIAL SQ PRN (21:27)
[2017-02-05] MEDS: TAMSULOSIN 0.4 MG CAP.SR.24H PO SCH (21:29)
[2017-02-05] MEDS: ATORVASTATIN 40 MG TABLET PO SCH (21:29)
[2017-02-06] MEDS: AMPICILLIN SODIUM 1 GM in IV NS 0.9% 100 ML IV SCH ×3 (05:02→20:44)
--- NOTE | 2017-02-06 06:00 | NUR ---
RN NOTES DAILY WEIGHT 287 LBS.
[2017-02-06] MEDS: BLOOD SUGAR DIAGNOSTIC 1 EACH STRIP IN SCH ×4 (06:35→21:17)
[2017-02-06] MEDS: INSULIN REGULAR, HUMAN 100 UNIT/ML 3 ML VIAL SQ PRN ×3 (06:36→17:31)
--- NOTE | 2017-02-06 07:00 | NUR ---
RN NOTES BS 148. PATIENT REFUSED TAKING 2 UNITS OF INSULIN.
--- NOTE | 2017-02-06 07:06 | NUR ---
RN CLOSING NOTES PATIENT IS IN BED, ALERT AND ORIENTEDX3. VS STABLE. NO C/O PAIN AT THIS TIME. NO SOB NOTED. RESPIRATIONS EVEN AND UNLABORED. IV ACCESS ON LFA PATENT AND INTACT, NO REDNESS OR INFILTRATION NOTED. SKIN CLEAN AND DRY, DRESSING CHANGE INTACT. ALL NEEDS ARE MET AND MEDICATIONS GIVEN PER MD ORDER. BED IN LOW AND LOCKED POSITION, SIDE RAILSX2. CALL LIGHT WITHIN EASY REACH. WILL ENDORSE TO RN DAY SHIFT FOR CRYSTAL.
--- NOTE | 2017-02-06 07:35 | NUR ---
RN OPENING NOTES RECEIVED PATIENT IN BED, ALERT AND ORIENTEDX3. NO ACUTE DISTRESS, NO SOB NOTED. NO C/O PAIN AT THIS TIME. IV ACCESS ON LFA PATENT AND INTACT, NO REDNESS OR INFILTRATION NOTED. BED IN LOW AND LOCKED POSITION, SIDE RAILSX2. CALL LIGHT WITHIN EASY REACH. WILL CONTINUE TO MONITOR ACCORDINGLY.
[2017-02-06 08:00] VITALS: BP 114/68
[2017-02-06 08:11] LABS: CALCIUM, SERUM 8.1 mg/dL (8.5-10.1); CARBON DIOXIDE 30 mmol/L (21-32); CHLORIDE 103 mmol/L (98-107); CREATININE 1.8 mg/dL (0.6-1.3); GLUCOSE 134 mg/dL (74-106); POTASSIUM 4.1 mmol/L (3.5-5.1); SODIUM SERUM 140 mmol/L (136-145); UREA NITROGEN, BLOOD 42 mg/dL (7-18)
[2017-02-06] MEDS: HEPARIN SODIUM, PORCINE 5000 UNITS/1 ML VIAL SQ SCH ×2 (09:00→20:27)
[2017-02-06] MEDS: GENTAMICIN 0.1% OINT 15 GM TUBE TP SCH ×2 (09:00→17:27)
[2017-02-06] MEDS: ASCORBIC ACID 500 MG TABLET PO SCH (09:57)
[2017-02-06] MEDS: FUROSEMIDE 80 MG TABLET PO SCH (09:57)
[2017-02-06] MEDS: DOCUSATE SODIUM 100 MG CAPSULE PO SCH ×2 (09:57→17:25)
[2017-02-06] MEDS: CARVEDILOL 6.25 MG TABLET PO SCH ×2 (09:58→17:25)
[2017-02-06] MEDS: METOLAZONE 2.5 MG TABLET PO SCH (09:59)
[2017-02-06] MEDS: LACTOBACILLUS RHAMNOSUS GG 1 EACH CAP.SPRINK PO SCH ×2 (09:59→17:25)
[2017-02-06] MEDS: CLOPIDOGREL BISULFATE 75 MG TABLET PO SCH (09:59)
[2017-02-06] MEDS: ASPIRIN 81 MG TAB.CHEW PO SCH (09:59)
[2017-02-06] MEDS: DULOXETINE HCL 30 MG CAPSULE.DR PO SCH (10:00)
[2017-02-06] MEDS: LEVOTHYROXINE SODIUM 100 MCG TABLET PO SCH (10:00)
[2017-02-06] MEDS: ACIDOPHILUS/BULGARICUS 1 EACH GRAN.PACK PO SCH ×2 (10:05→12:40)
[2017-02-06] MEDS: DRONEDARONE HYDROCHLORIDE 400 MG TABLET PO SCH ×2 (10:05→17:26)
[2017-02-06] MEDS: DAKINS QUARTER STRENGTH (0.125%) 480 ML BOTTLE TOP SCH ×2 (10:24→17:26)
--- NOTE | 2017-02-06 10:26 | NUR ---
RN NOTES HEPARIN HELD, LOW HGB = 7.3. WILL CONTINUE TO MONITOR ACCORDINGLY
[2017-02-06] MEDS: SOD FERRIC GLUC 125 MG in IV NS 0.9% 100 ML IV SCH (14:23)
[2017-02-06 16:00] VITALS: BP 130/76
[2017-02-06] MEDS: ACIDOPHILUS/BULGARICUS 1 EACH TAB.CHEW PO SCH (17:26)
--- NOTE | 2017-02-06 19:20 | NUR ---
RN CLOSING NOTES NO SIGNIFICANT CHANGE IN PATIENT'S CONDITION. NO ACUTE DISTRESS, NO SOB NOTED. ALL NEEDS ATTENDED AND PROVIDED. KEPT PATIENT SAFE AND COMFORTABLE. BED IN LOW, LOCKED POSITION, SIDERAILS UP X2, CALL LIGHT IN REACH. ENDORSED TO NIGHT RN FOR CRYSTAL.
--- NOTE | 2017-02-06 19:27 | NUR ---
ms/rn opening notes patient is alert,oriented x2. able to verbalize needs. sitting in the bed, with bed alarm on, requires monitoring and assistance at all times as patient tends to transfer self unassisted. respirations even and unlabored, skin warm to touch, call lights within reach. bed in lock position. Received endorsement from am rn for ramez.
[2017-02-06] MEDS: CEFTRIAXONE 1 G in IV D5W 50 ML IV SCH (19:52)
[2017-02-06 20:00] VITALS: BP 111/75
[2017-02-06 20:13] VITALS: BP 111/75
--- NOTE | 2017-02-06 20:30 | NUR ---
MS/RN NOTES PATIENT HAS A SMOKING PRIVELAGE AND ASKED TO BE TAKEN FOR A SMOKE BREAK ACCOMPANIED BY WEBSPHERE ARCHITECT. INFORM THE BENEFIT OF NOT SMOKING. PATIENT VERBALIZED UNDERSTANDING.
--- NOTE | 2017-02-06 20:42 | NUR ---
MS/RN NOTES PATIENT REQUESTING PAIN MEDICATION NORCO 5-325 MG PO FOR 8/10 PAIN IN HIS L=NECK. WILL MONITOR EFFECTIVENESS
[2017-02-06] MEDS: HYDROCODONE/APAP 5/325MG 1 EACH TABLET PO PRN (20:45)
[2017-02-06] MEDS: ATORVASTATIN 40 MG TABLET PO SCH (21:17)
[2017-02-06] MEDS: TAMSULOSIN 0.4 MG CAP.SR.24H PO SCH (21:17)
[2017-02-06] MEDS: *INSULIN REGULAR(HUMULIN R)HUM 100 UNIT/ML VIAL SQ PRN (21:27)
[2017-02-07] MEDS: AMPICILLIN SODIUM 1 GM in IV NS 0.9% 100 ML IV SCH ×3 (04:09→20:00)
[2017-02-07] MEDS: BLOOD SUGAR DIAGNOSTIC 1 EACH STRIP IN SCH ×4 (05:46→21:17)
[2017-02-07] MEDS: INSULIN REGULAR, HUMAN 100 UNIT/ML 3 ML VIAL SQ PRN ×3 (06:31→17:34)
--- NOTE | 2017-02-07 06:35 | NUR ---
MS/RN NOTES PATIENT SITING IN BED, ALERT X2 REQUIRE FREQUENT MONITORING AND REORIENTATION. ON IV ATB, PROVIDE FLUIDS, ABLE TO VERBALIOZE NDEEDS, REPORTED PAIN OF 8/10 AND NORCO 5-325MG PO GIVEN, MONITORING FOR SAFETY. ON WOUND TREATMENT. WILL ENDORSE TO AM RN FOR CRYSTAL.
[2017-02-07 07:34] LABS: EOSINOPHILS # (AUTO) 0.1 /CMM (0.0-0.7); EOSINOPHILS % (AUTO) 1.7 % (0.0-6.0); HEMATOCRIT 22 % (39-51); LYMPHOCYTES # (AUTO) 0.8 /CMM (0.8-4.8); LYMPHOCYTES % (AUTO) 8.9 % (20.0-44.0); MEAN CORPUSCULAR HEMOGLOBIN 25 PG (26.0-33.0); MEAN CORPUSCULAR HGB CONC 31 g/dl (31.0-36.0); MEAN CORPUSCULAR VOLUME 80 fL (80-96); MONOCYTES # (AUTO) 0.6 /CMM (0.1-1.30); MONOCYTES % (AUTO) 6.6 % (2.0-12.0); NEUTROPHILS # (AUTO) 7.1 /CMM (1.8-8.9); NEUTROPHILS % (AUTO) 82.8 % (43.0-81.0); PLATELET COUNT (AUTO) 251 /CMM (150-450); RDW COEFFICIENT OF VARIATION 19.9 (11.5-15.0); RED BLOOD CELL COUNT(AUTO) 2.75 MIL/uL (4.5-6.0); WHITE BLOOD COUNT (AUTO) 8.6 K/uL (4.3-11.0)
[2017-02-07 07:50] LABS: ALANINE AMINOTRANSFERASE 19 U/L (12-78); ALBUMIN 2.9 g/dL (3.4-5.0); ALKALINE PHOSPHATASE 105 U/L (46-116); ASPARTATE AMINOTRANSFERASE 16 U/L (15-37); BILIRUBIN,TOTAL 0.2 mg/dL (0.2-1.0); CARBON DIOXIDE 34 mmol/L (21-32); CHLORIDE 103 mmol/L (98-107); CREATININE 1.7 mg/dL (0.6-1.3); GLUCOSE 152 mg/dL (74-106); MAGNESIUM 2.3 mg/dL (1.8-2.4); PHOSPHORUS 3.4 mg/dL (2.5-4.9); POTASSIUM 4.4 mmol/L (3.5-5.1); SODIUM SERUM 141 mmol/L (136-145); TOTAL PROTEIN, SERUM 8.4 g/dL (6.4-8.2); UREA NITROGEN, BLOOD 40 mg/dL (7-18)
[2017-02-07 08:00] VITALS: BP 140/86
--- NOTE | 2017-02-07 08:00 | NUR ---
MS RN OPENING NOTES Patient in bed sitting comfortably alert,oriented. Verbally responsive. Bed alarm on, low bed, locked. No SOB noted. No acute distress noted. Respirations even and unlabored, skin warm to touch. PICC line on the right arm , intact and patent. No redness noted, no swelling noted. Call light placed within reach. Will continue to monitor accordingly.
[2017-02-07 08:02] LABS: HEMOGLOBIN 6.8 g/dL (13.5-17.5)
[2017-02-07] MEDS: LEVOTHYROXINE SODIUM 100 MCG TABLET PO SCH (08:54)
[2017-02-07] MEDS: ASCORBIC ACID 500 MG TABLET PO SCH (08:54)
[2017-02-07] MEDS: DULOXETINE HCL 30 MG CAPSULE.DR PO SCH (08:54)
[2017-02-07] MEDS: DOCUSATE SODIUM 100 MG CAPSULE PO SCH ×2 (08:55→17:20)
[2017-02-07] MEDS: DRONEDARONE HYDROCHLORIDE 400 MG TABLET PO SCH ×2 (08:55→17:20)
[2017-02-07] MEDS: ASPIRIN 81 MG TAB.CHEW PO SCH (08:55)
[2017-02-07] MEDS: CLOPIDOGREL BISULFATE 75 MG TABLET PO SCH (08:55)
[2017-02-07] MEDS: CARVEDILOL 6.25 MG TABLET PO SCH ×2 (08:56→17:22)
[2017-02-07] MEDS: FUROSEMIDE 80 MG TABLET PO SCH (08:57)
[2017-02-07] MEDS: ACIDOPHILUS/BULGARICUS 1 EACH TAB.CHEW PO SCH ×3 (08:58→17:22)
[2017-02-07] MEDS: LACTOBACILLUS RHAMNOSUS GG 1 EACH CAP.SPRINK PO SCH ×2 (08:58→17:20)
[2017-02-07] MEDS: HEPARIN SODIUM, PORCINE 5000 UNITS/1 ML VIAL SQ SCH ×2 (09:00→20:27)
[2017-02-07] MEDS: METOLAZONE 2.5 MG TABLET PO SCH (09:05)
[2017-02-07] MEDS: DAKINS QUARTER STRENGTH (0.125%) 480 ML BOTTLE TOP SCH ×2 (09:08→17:23)
[2017-02-07] MEDS: GENTAMICIN 0.1% OINT 15 GM TUBE TP SCH ×2 (09:08→17:23)
--- NOTE | 2017-02-07 09:10 | NUR ---
HELD HEPARIN SQ HEMOGLOBIN IS LOW 6.8 HCT 22
[2017-02-07 09:36] LABS: LYMPHOCYTES % (MANUAL) 15 % (16-48); MONOCYTES % (MANUAL) 5 % (0-11.0); NEUTROPHILS % (MANUAL) 80 (42-76)
[2017-02-07] MEDS ORDERED: ACID1TAB12 PO (11:34)
[2017-02-07] MEDS ORDERED: METO2.5T7 PO (11:34)
[2017-02-07] MEDS: SOD FERRIC GLUC 125 MG in IV NS 0.9% 100 ML IV SCH (14:52)
[2017-02-07 16:00] VITALS: BP 148/81
--- NOTE | 2017-02-07 16:24 | NUR ---
STARTED TRANSFUSING FIRST UNIT PRBC WITH STABLE V/S.AFEBRILE.PT DENIES ANY PAIN OR DISTRESS.WILL CONTINUE TO MONITOR ANY ADVERSE REACTIONS.
[2017-02-07 16:25] VITALS: BP 132/84
[2017-02-07 16:40] VITALS: BP 138/84
--- NOTE | 2017-02-07 16:40 | NUR ---
ONGOING BLOOD TRANSFUSION WITH NO ADVERSE REACTION.WITH STABLE V/S.PT DENIES ANY PAIN OR DISTRESS.WILL CONTINUE TO MONITOR.
[2017-02-07 18:41] VITALS: BP 146/80
--- NOTE | 2017-02-07 18:43 | NUR ---
COMPLETED TRANSFUSING FIRST UNIT PRBC WITH STABLE V/S AND NO A/R NOTED.PT DENIES ANY PAIN OR DISTRESS.AFEBRILE.WILL CONTINUE TO MONITOR.
[2017-02-07] MEDS: CEFTRIAXONE 1 G in IV D5W 50 ML IV SCH (18:46)
--- NOTE | 2017-02-07 18:47 | NUR ---
DR MCCANN WANTS TO INFUSE IV ATB ROCEPHIN AND AMPICILLIN AFTER BLOOD TRANSFUSION PRIOR TO DISCHARGE.
--- NOTE | 2017-02-07 19:29 | NUR ---
MS RN CLOSING NOTES PATIENT SITTING ON HIS WHEELCHAIR, LOCKED. ALERT, ORIENTED VERBALLY RESPONSIVE. NO SOB NOTED. NO SIGN OF ACUTE DISTRESS NOTED .KEVEN PICC LINE PATENT AND INTACT, NO REDNESS, NO SWELLING NOTED. S/P BLOOD TRANSFUSION WITH STABLE V/S AND NO A/R NOTED.PT DENIES ANY PAIN .AFEBRILE. DUE MEDICATIONS GIVEN , NO ASE NOTED. NEEDS ATTENDED. WILL CONTINUE TO MONITOR. ENDORSED TO AUDIT CONSULTANT FOR CONTINUITY OF CARE.
[2017-02-07 20:00] VITALS: BP 137/75
--- NOTE | 2017-02-07 20:00 | NUR ---
ms/rn opening notes patient received report and observe patient awaiting for discharge, antibiotic ampicilin to be administered, id band requested at the admission, not found during shift, scan patient id band before administration of med.. patient provided information regarding discharge instruction to home health of [facility]. pateint alert x2, require monitoring and reorientation for safety. charge nurse inform,ed that transportation will be arranged. vital signs to be checked. will continue to monitor, Picc line iv on hellen patent.
--- NOTE | 2017-02-07 20:55 | NUR ---
ms/rn notes Transportation arrived to picker operator patient with 2 emt , patient will be on a gurney and will be going home for home health care. Family is in the house ,Gave report to transport , vital signs checked, no pain verbalized. will continue to monitor. respirations even and unlabored. skin warm to touch., belongings with patient provided teaching for safety and medication regimen.Transporation arrangement coordinated by piano case maker for safe discharge protocol.
--- NOTE | 2017-02-07 21:00 | NUR ---
MS/RN NOTES PATIENT REFUSE TO HAVE PHOTO OF THE WOUND BE TAKEN
[2017-02-07] MEDS: TAMSULOSIN 0.4 MG CAP.SR.24H PO SCH (21:13)
[2017-02-07] MEDS: ATORVASTATIN 40 MG TABLET PO SCH (21:13)
[2017-02-07] MEDS: *INSULIN REGULAR(HUMULIN R)HUM 100 UNIT/ML VIAL SQ PRN (21:25)
--- NOTE | 2017-02-07 21:25 | NUR ---
MS/RN NOTES AMBULANCE WILL COMEBACK TO BRING A BARIATRIC GURNEY, AWAITING FOR DISCHARGE TO HOME. PATIENT REFUSE TO TAKE INSULIN HE WILL NOT EAT TONIGHT.
--- NOTE | 2017-02-07 22:51 | NUR ---
MS/RN NOTES AMBULANCE ARRIVE TO PERCUSSION INSTRUMENT TUNER PATIENT, SAFELY TRANSFERED TO [facility] , RESPIRATIONS EVEN, REPORT GIVEN TO EMT. NO PAIN VERBALIZED, COOPERATIVE AND SAFELY TO DISCHARGE TO HOME ACCOMPANIED BY TWO PARAMEDICS.
== END 2017-02-07 22:50 | disposition home health service (06) | DRG 981 ==
LOC: MED 09:59 → TELE 02-01 03:53 → MED 02-01 11:21
PROVIDERS: ADMIT Internal Medicine; ATTEND Podiatrist Foot & Ankle Surgery
PROC: 0LBV0ZZ Excision of Right Foot Tendon, Open Approach (ICD-10-PCS; principal; 2017-02-02)
PROC: 0QBL0ZZ Excision of Right Tarsal, Open Approach (ICD-10-PCS; 2017-02-03)
PROC: 0QBL0ZZ Excision of Right Tarsal, Open Approach (ICD-10-PCS; 2017-02-04)
PROC: 02HV33Z Insertion of Infusion Device into Superior Vena Cava, Percutaneous Approach (ICD-10-PCS; 2017-02-06)
PROC: B548ZZA Ultrasonography of Superior Vena Cava, Guidance (ICD-10-PCS; 2017-02-06)
PROC: 30233N1 Transfusion of Nonautologous Red Blood Cells into Peripheral Vein, Percutaneous Approach (ICD-10-PCS; 2017-02-07)
DX: E11.52 Type 2 diabetes mellitus with diabetic peripheral angiopathy with gangrene (principal); I21.4 Non-ST elevation (NSTEMI) myocardial infarction; N17.0 Acute kidney failure with tubular necrosis; I50.33 Acute on chronic diastolic (congestive) heart failure; I96 Gangrene, not elsewhere classified; I13.0 Hypertensive heart and chronic kidney disease with heart failure and stage 1 through stage 4 chronic kidney disease, or unspecified chronic kidney disease; E11.22 Type 2 diabetes mellitus with diabetic chronic kidney disease; E66.01 Morbid (severe) obesity due to excess calories; M86.8X7 Other osteomyelitis, ankle and foot; Z68.41 Body mass index [BMI] 40.0-44.9, adult; D63.8 Anemia in other chronic diseases classified elsewhere; E03.9 Hypothyroidism, unspecified; E11.42 Type 2 diabetes mellitus with diabetic polyneuropathy; E11.65 Type 2 diabetes mellitus with hyperglycemia; E78.5 Hyperlipidemia, unspecified; E87.5 Hyperkalemia; G47.33 Obstructive sleep apnea (adult) (pediatric); F17.210 Nicotine dependence, cigarettes, uncomplicated; I25.10 Atherosclerotic heart disease of native coronary artery without angina pectoris; K21.9 Gastro-esophageal reflux disease without esophagitis; Z89.612 Acquired absence of left leg above knee; Z95.0 Presence of cardiac pacemaker; Z95.1 Presence of aortocoronary bypass graft; E11.69 Type 2 diabetes mellitus with other specified complication; Z79.4 Long term (current) use of insulin; Z79.84 Long term (current) use of oral hypoglycemic drugs; E11.621 Type 2 diabetes mellitus with foot ulcer; L97.513 Non-pressure chronic ulcer of other part of right foot with necrosis of muscle; N18.9 Chronic kidney disease, unspecified; N50.89 Other specified disorders of the male genital organs; Z86.73 Personal history of transient ischemic attack (TIA), and cerebral infarction without residual deficits; Z91.19 Patient's noncompliance with other medical treatment and regimen; Z86.14 Personal history of Methicillin resistant Staphylococcus aureus infection; I25.2 Old myocardial infarction
CPT/HCPCS: 36415; 36600; 71010-TC; 73630-TC; 80048-TC; 80053-TC; 80061-TC; 80202-TC; 81000-TC; 82570-TC; 82728-TC; 82803-TC; 82962-TC; 83540-TC; 83605-TC; 83735-TC; 84100-TC; 84155-TC; 84300-TC; 84443-TC; 84484-TC; 85025-TC; 85610-TC; 85652-TC; 85730-TC; 86140-TC; 86850-TC; 86921-TC; 87040-TC; 87070-TC; 87081-TC; 87086-TC; 87186-TC; 93926-TC; A4216; A6253; A6402; A6403; C1751; J0290; J0696; J1644; J1815; J1940; J2020; J2543; J2916; J3370; J7030; J7040; J7050; J7060; P9016-BL; Z7610

== ENCOUNTER 2017-02-09 17:50 | Inpatient (IN) | payer MEDICARE, BC ==
[~2017-02-09] VITALS: Ht 170.2 cm; Wt 139.7 kg
[2017-02-09 09:00] VITALS: BP 114/79
[~2017-02-09 17:50] MED LIST changes: +ACID1TAB12 PO; -CEPH-570 PO; +METO2.5T7 PO
--- NOTE | 2017-02-09 18:00 | NUR ---
BB : RLE INFECTION. PULLED OUT PICC LINE. NOT ACTING SELF. PATIENT IS LETHARGIC, SLIGHTLY SLURRED SPEECH. A/OX 2. BREATHING EVEN AND UNLABORED. NO SOB. VITALS STABLE. SAFETY AND COMFORT MEASURES IN PLACE. MD AT BEDSIDE FOR EVAL.
--- NOTE | 2017-02-09 18:20 | NUR ---
NEW IV STARTED ON LAC, 18 G.
[2017-02-09 18:34] LABS: BASOPHILS % (AUTO) 0.2 % (0.0-2.0); EOSINOPHILS # (AUTO) 0.1 /CMM (0.0-0.7); EOSINOPHILS % (AUTO) 1.3 % (0.0-6.0); HEMATOCRIT 22 % (39-51); LYMPHOCYTES # (AUTO) 0.8 /CMM (0.8-4.8); MEAN CORPUSCULAR HEMOGLOBIN 25 PG (26.0-33.0); MEAN CORPUSCULAR HGB CONC 32 g/dl (31.0-36.0); MEAN CORPUSCULAR VOLUME 80 fL (80-96); MONOCYTES # (AUTO) 0.5 /CMM (0.1-1.30); MONOCYTES % (AUTO) 5.3 % (2.0-12.0); NEUTROPHILS # (AUTO) 7.2 /CMM (1.8-8.9); NEUTROPHILS % (AUTO) 84.2 % (43.0-81.0); PLATELET COUNT (AUTO) 207 /CMM (150-450); RDW COEFFICIENT OF VARIATION 19.7 (11.5-15.0); RED BLOOD CELL COUNT(AUTO) 2.73 MIL/uL (4.5-6.0); WHITE BLOOD COUNT (AUTO) 8.6 K/uL (4.3-11.0)
[2017-02-09 18:38] LABS: HEMOGLOBIN 6.9 g/dL (13.5-17.5)
[2017-02-09 18:41] LABS: INR 1.21 (0.87-1.13); PROTHROMBIN TIME 12.6 SECS (9.5-12.7)
[2017-02-09 18:42] LABS: TROPONIN I 0.147 ng/mL (0.00-0.056)
[2017-02-09 18:56] LABS: CALCIUM, SERUM 8.4 mg/dL (8.5-10.1); CARBON DIOXIDE 31 mmol/L (21-32); CHLORIDE 102 mmol/L (98-107); CREATININE 1.7 mg/dL (0.6-1.3); GLUCOSE 188 mg/dL (74-106); POTASSIUM 4.6 mmol/L (3.5-5.1); SODIUM SERUM 138 mmol/L (136-145); UREA NITROGEN, BLOOD 54 mg/dL (7-18)
[2017-02-09 19:09] LABS: ALANINE AMINOTRANSFERASE 28 U/L (12-78); ALBUMIN 2.9 g/dL (3.4-5.0); ALKALINE PHOSPHATASE 142 U/L (46-116); ASPARTATE AMINOTRANSFERASE 33 U/L (15-37); BILIRUBIN,DIRECT 0.2 mg/dL (0.0-0.2); BILIRUBIN,TOTAL 0.4 mg/dL (0.2-1.0); TOTAL PROTEIN, SERUM 8.4 g/dL (6.4-8.2)
--- NOTE | 2017-02-09 19:19 | NUR ---
REPORT GIVEN TO AVTAR BANUELOS FOR CRYSTAL.
--- NOTE | 2017-02-09 19:20 | NUR ---
REPORT RECEIVED FROM VIN REYNOSO FOR CRYSTAL.
[2017-02-09] MEDS ORDERED: VANCOMYCIN 1 GM in IV D5W 250 ML IV ONE (19:30)
[2017-02-09] MEDS ORDERED: PIPERACILLIN /TAZOBACTAM 3.375 G in IV D5W 50 ML IV ONE (19:30)
--- NOTE | 2017-02-09 19:30 | NUR ---
ARIANA PAGED, ONCOLOGY PATIENT NAVIGATOR
--- NOTE | 2017-02-09 19:35 | NUR ---
IN AND OUT CATH INSERTED USING PARK KEEPER, URINE SPECIMEN OBTAINED AND SENT TO LAB.
--- NOTE | 2017-02-09 19:50 | NUR ---
CALLED NURSING SUP. FOR TELE BED
--- NOTE | 2017-02-09 19:52 | NUR ---
CALLED PLANT PHYSIOLOGIST TO EXPEDITE FINDING BED TO [facility].
[2017-02-09 19:55] LABS: APPEARANCE,URINE Clear (CLEAR); BILIRUBIN,URINE Negative (NEGATIVE); BLOOD, URINE Negative Ery/uL (NEGATIVE); COLOR,URINE Yellow (YELLOW); KETONES,URINE Negative (NEGATIVE); LEUKOCYTE ESTERASE ,URINE Negative (NEGATIVE); NITRITE, URINE Negative (NEGATIVE); PROTEIN,URINE Negative (NEGATIVE); UGLUCOSE Negative (NEGATIVE); UROBILINOGEN,URINE 0.2 EU/dL (0.2)
[2017-02-09] MEDS ORDERED: VANCOMYCIN 1 GM VIAL ONE (19:58)
[2017-02-09] MEDS ORDERED: PIPERACILLIN /TAZOBACTAM 3.375 G VIAL IV ONE (19:58)
[2017-02-09] MEDS ORDERED: NITROGLYCERIN 0.4 MG/TAB BOTTLE SL PRN (20:00)
[2017-02-09] MEDS ORDERED: IV NS 0.9% 1,000 ML IV PRN (20:02)
--- NOTE | 2017-02-09 20:02 | NUR ---
TELE [phone]
[2017-02-09 20:06] LABS: BAND % (MANUAL) 2 % (0.0-5.0); LYMPHOCYTES % (MANUAL) 6 % (16-48); MONOCYTES % (MANUAL) 10 % (0-11.0); NEUTROPHILS % (MANUAL) 82 (42-76)
--- NOTE | 2017-02-09 20:15 | NUR ---
RN NOTES RECEIVED REPORT FROM AVTAR IN ER.
--- NOTE | 2017-02-09 20:20 | NUR ---
CAR LOT ATTENDANT NOTES PT ARRIVED TO THE UNIT VIA GURNEY. PT CONFUSED. NO APPARENT S/S OF PAIN OR DISTRESS. ALL PATIENT BELONGINGS ACCOUNTED FOR. PT HAS A LEFT AC IV. INORGANIC CHEMICAL TECHNICIAN ENDORSED ZOSYN, WILL INFUSE. PER ER LAB RESULTS PT HGB 6.9. WILL OBTAIN CONSENT AND INFUSE 1 PRBC. SAFETY PRECAUTIONS IN PLACE. BED IN LOW LOCKED POSITION. X2 SIDERAILS UP. WILL CONTINUE TO MONITOR.
--- NOTE | 2017-02-09 20:25 | NUR ---
PT TRANSFERED TO FLOOR VIA ACLS PROTOCOLS. LIYA ENDORSED TO VIN SAWYER AT BEDSIDE.
[2017-02-09] MEDS ORDERED: ACETAMINOPHEN 325 MG TABLET PO PRN (20:30)
[2017-02-09] MEDS ORDERED: Z GUARD REMEDY 2 OZ OINT TP PRN (20:30)
[2017-02-09] MEDS ORDERED: MAG HYDROX/AL HYDROX/SIMETH 30 ML UDC PO PRN (20:30)
[2017-02-09] MEDS ORDERED: MAGNESIUM HYDROXIDE 30 ML UDC PO PRN (20:30)
[2017-02-09] MEDS ORDERED: DEXTROSE 50%-WATER 50 ML DISP.SYRIN IV PRN (20:30)
[2017-02-09] MEDS ORDERED: ONDANSETRON HCL/PF 4 MG/2 ML VIAL IVP PRN (20:30)
[2017-02-09] MEDS ORDERED: ZOLPIDEM TARTRATE 5 MG TABLET PO PRN (20:30)
--- NOTE | 2017-02-09 20:45 | NUR ---
ASKED ADMITTING STAFF TO EXPEDITE PROCESSING OF ADMISSION FORMS. TELE CHARGE NURSE LARA INFORMED.
[2017-02-09] MEDS: PIPERACILLIN /TAZOBACTAM 4.5 G in IV D5W 50 ML IV SCH (20:58)
[2017-02-09] MEDS: BLOOD SUGAR DIAGNOSTIC 1 EACH STRIP IN SCH (22:16)
[2017-02-09] MEDS ORDERED: ATORVASTATIN 40 MG TABLET ONE (22:39)
[2017-02-09] MEDS ORDERED: TAMSULOSIN 0.4 MG CAP.SR.24H ONE (22:40)
[2017-02-09] MEDS: ATORVASTATIN 40 MG TABLET PO SCH (23:32)
[2017-02-09] MEDS: TAMSULOSIN 0.4 MG CAP.SR.24H PO SCH (23:32)
[2017-02-09 23:45] VITALS: BP 118/70
[2017-02-10] VITALS (10 sets, daily range): BP systolic 100–150; BP diastolic 55–99
[2017-02-10] MEDS ORDERED: PIPERACILLIN /TAZOBACTAM 2.25 G VIAL IV ONE (05:03)
[2017-02-10] MEDS: PIPERACILLIN /TAZOBACTAM 4.5 G in IV D5W 50 ML IV SCH (05:59)
[2017-02-10] MEDS: BLOOD SUGAR DIAGNOSTIC 1 EACH STRIP IN SCH ×4 (06:44→21:42)
--- NOTE | 2017-02-10 07:10 | NUR ---
DIRECT SERVICE PROFESSIONAL NOTES PATIENT ALERT AND ORIENTED X1-2 WITH EPISODE OF CONFUSION, PATIENT'S BREATHING EVEN AND UNLABORED, NO SOB NOR RESPIRATORY DISTRESS NOTED. RIGHT FOOT WOUND COVERED WITH CLEAN AND DRY DRESSING. NO S/SX OF BLEEDING NOTED. S/P BLOOD TRANSFUSION NO ADVERSE REACTION NOTED, PIV PATENT AND INTACT, FLUSHES WELL WITH NS, NEEDS ATTENDED, KEPT PT COMFORTABLE, CALL LIGHT WITHIN REACH, WILL CONTINUE TO MONITOR.
--- NOTE | 2017-02-10 07:39 | NUR ---
RN CLOSING NOTES PT REMAINS CONFUSED. PT HAS BECOME MORE ALERT AND ORIENTED POST BLOOD TRANSFUSION. NO APPARENT S/S OF PAIN OR DISTRESS. NO SOB. DRESSING CHANGED. S/P BLOOD TRANSFUSION NO ADVERSE REACTION NOTED, LEFT FOREARM IV PATENT AND INTACT RUNNING NS @75ML/HR. SAFETY PRECAUTIONS IN PLACE. WILL ENDORSE TO DAY SHIFT NURSE FOR CONTINUITY OF CARE.
[2017-02-10] MEDS: INSULIN REGULAR, HUMAN 100 UNIT/ML 3 ML VIAL SQ PRN ×4 (08:27→21:49)
[2017-02-10] MEDS: DRONEDARONE HYDROCHLORIDE 400 MG TABLET PO SCH ×2 (08:55→17:11)
[2017-02-10] MEDS: DULOXETINE HCL 30 MG CAPSULE.DR PO SCH (08:55)
[2017-02-10] MEDS: ASPIRIN 81 MG TAB.CHEW PO SCH (08:55)
[2017-02-10] MEDS: ZINC SULFATE 220 MG CAPSULE PO SCH (08:55)
[2017-02-10] MEDS: FERROUS SULFATE (325 MG) 325 MG/TAB TABLET PO SCH ×2 (08:55→17:12)
[2017-02-10] MEDS: ACIDOPHILUS/BULGARICUS 1 EACH TAB.CHEW PO SCH ×3 (08:55→17:11)
[2017-02-10] MEDS: CARVEDILOL 6.25 MG TABLET PO SCH ×2 (08:56→17:00)
[2017-02-10] MEDS: CLOPIDOGREL BISULFATE 75 MG TABLET PO SCH (09:00)
[2017-02-10] MEDS ORDERED: FUROSEMIDE 40 MG/4 ML VIAL IV SCH (09:00)
[2017-02-10] MEDS: LEVOTHYROXINE SODIUM 100 MCG TABLET PO SCH (09:03)
[2017-02-10] MEDS: MULTIVITAMIN/LUTEIN/MINERALS 1 TAB PO SCH (09:03)
[2017-02-10] MEDS: DAKINS QUARTER STRENGTH (0.125%) 480 ML BOTTLE TOP SCH (09:07)
[2017-02-10] MEDS: MUPIROCIN OINT 2% 22 GM TUBE TP SCH (09:07)
[2017-02-10] MEDS: FUROSEMIDE 100 MG/10 ML VIAL IV SCH ×3 (09:12→17:54)
[2017-02-10] MEDS: INSULIN DETEMIR 100 UNIT/ML CARTRIDGE SQ SCH (09:37)
[2017-02-10] MEDS: CEFTRIAXONE 1 G in IV D5W 50 ML IV SCH (09:40)
--- NOTE | 2017-02-10 09:50 | NUR ---
VIN CHIU NOTES PATIENT'S PLAVIX HELD, PATIENTS RIGHT FOOT DRESSING NOTED WITH BLOOD. DRESSING CHANGED. Addendum: 02/10/17 at 0950 by CHETNA CARTER RN ADDENDUM: DR. REYNA MADE AWARE.
[2017-02-10 10:21] LABS: BASOPHILS % (AUTO) 0.4 % (0.0-2.0); EOSINOPHILS # (AUTO) 0.1 /CMM (0.0-0.7); EOSINOPHILS % (AUTO) 0.6 % (0.0-6.0); HEMATOCRIT 24 % (39-51); HEMOGLOBIN 7.3 g/dL (13.5-17.5); LYMPHOCYTES % (AUTO) 9.8 % (20.0-44.0); MEAN CORPUSCULAR HEMOGLOBIN 25 PG (26.0-33.0); MEAN CORPUSCULAR HGB CONC 31 g/dl (31.0-36.0); MEAN CORPUSCULAR VOLUME 81 fL (80-96); MONOCYTES # (AUTO) 0.5 /CMM (0.1-1.30); MONOCYTES % (AUTO) 5.2 % (2.0-12.0); NEUTROPHILS # (AUTO) 8.7 /CMM (1.8-8.9); PLATELET COUNT (AUTO) 229 /CMM (150-450); RDW COEFFICIENT OF VARIATION 19.2 (11.5-15.0); RED BLOOD CELL COUNT(AUTO) 2.92 MIL/uL (4.5-6.0); WHITE BLOOD COUNT (AUTO) 10.4 K/uL (4.3-11.0)
--- NOTE | 2017-02-10 10:32 | NUR ---
RN MS NOTES CARE TRANSFERRED TO [facility]. REPORT GIVEN.
[2017-02-10 10:36] LABS: B-TYPE NATRIURETIC PEPTIDE 3953 PG/ML (0-125); CALCIUM, SERUM 8.3 mg/dL (8.5-10.1); CARBON DIOXIDE 31 mmol/L (21-32); CHLORIDE 103 mmol/L (98-107); CREATININE 1.7 mg/dL (0.6-1.3); GLUCOSE 190 mg/dL (74-106); LIPASE 65 U/L (73-393); MAGNESIUM 2.4 mg/dL (1.8-2.4); PHOSPHORUS 3.4 mg/dL (2.5-4.9); POTASSIUM 4.2 mmol/L (3.5-5.1); SODIUM SERUM 140 mmol/L (136-145); UREA NITROGEN, BLOOD 55 mg/dL (7-18)
[2017-02-10 10:39] LABS: CHOLESTEROL 56 mg/dL (<200); HDL CHOLESTEROL 24 mg/dL (40-60); LDL 23 mg/dL (0-99); THYROID STIMULATING HORMONE 3.727 uIU/mL (0.358-3.74); TRIGLYCERIDES 62 mg/dL (30-150)
--- NOTE | 2017-02-10 11:45 | NUR ---
#18 MIDLINE INSERTION LT. UPPER ARM.
[2017-02-10] MEDS ORDERED: PIPERACILLIN /TAZOBACTAM 3.375 G in IV D5W 50 ML IV SCH (12:00)
[2017-02-10] MEDS: AMPICILLIN SODIUM 2 GM in IV NS 0.9% 100 ML IV SCH ×3 (12:20→23:20)
[2017-02-10] MEDS: CLOTRIMAZOLE 1% 15 GM TUBE TP SCH ×2 (14:03→17:13)
[2017-02-10] MEDS: GENTAMICIN 0.1% OINT 15 GM TUBE TP SCH (16:18)
--- NOTE | 2017-02-10 16:41 | NUR ---
DRESSING CHG. TO RT. FOOT,SMALL TO MODERATE AMT. SANGUINOUS DRAINAGE ON DRESSING.PT. TOLERATED WELL.
[2017-02-10] MEDS ORDERED: VANCOMYCIN 1.5 GM in IV D5W 500 ML IV SCH (17:00)
--- NOTE | 2017-02-10 17:00 | NUR ---
COREG HELD AT THIS TIME BP LOW.
--- NOTE | 2017-02-10 18:18 | NUR ---
DISSATISFIED WITH MEALS TODAY,PTA UP TO GO OVER MENU FOR TOMORROW.
--- NOTE | 2017-02-10 19:15 | NUR ---
MS/RN OPENING NOTES PT RECEIVED SITTING UP IN BED. HOB ELEVATED HIGH FOWLERS POSITION. ON ROOM AIR, BREATHING EVEN AND UNLABORED. DENIES SOB AND PAIN AT THIS TIME. NO S/S OF RESPIRATORY DISTRESS. IV TO LAC DISLODGED. WILL REMOVE. SHAVONNE MIDLINE PATENT AND INTACT. BED IN LOW/LOCKED POSITION WITH CALL LIGHT IN REACH. SIDE RAILS UPX2. WILL CONTINUE TO MONITOR
[2017-02-10] MEDS: ATORVASTATIN 40 MG TABLET PO SCH (21:42)
[2017-02-10] MEDS: TAMSULOSIN 0.4 MG CAP.SR.24H PO SCH (21:42)
[2017-02-10] MEDS: HYDROCODONE/APAP 5/325MG 1 EACH TABLET PO PRN (21:49)
[2017-02-11] MEDS: AMPICILLIN SODIUM 2 GM in IV NS 0.9% 100 ML IV SCH ×3 (05:21→17:59)
[2017-02-11] MEDS: BLOOD SUGAR DIAGNOSTIC 1 EACH STRIP IN SCH ×4 (06:43→21:54)
[2017-02-11] MEDS: INSULIN REGULAR, HUMAN 100 UNIT/ML 3 ML VIAL SQ PRN ×4 (06:49→21:59)
--- NOTE | 2017-02-11 07:00 | NUR ---
MS/RN CLOSING NOTES PT DOZING INTERMITTENTLY. A/OX3 WITH GARBLED LANGUAGE. ON ROOM AIR, BREATHING EVEN AND UNLABORED. IN NO APPARENT DISTRESS. DENIES PAIN OR SOB AT THIS TIME. DRESSING CHANGE PROVIDED AT 0500. WOUND CX COLLECTED AND SENT TO LAB. BLOOD SUGAR THIS AM= 185, ADMINISTERED 3 UNITS OF INSULIN PER SLIDING SCALE. MADE PT COMFORTABLE DURING SHIFT. BED IN LOW/LOCKED POSITION WITH CALL LIGHT IN REACH. SIDE RAILS UPX2. WILL ENDORSE TO AM SHIFT CRYSTAL.
[2017-02-11 08:00] VITALS: BP 147/76
--- NOTE | 2017-02-11 08:00 | NUR ---
RN OPENING NOTES RECEIVED PT. PT IS STABLE AND SITTING IN BED. A/OX3, HOWEVER PT'S SPEECH IS GARBLED AND UNCLEAR. NO S/S OF RESPIRATORY DISTRESS OR SOB, PT IS ON RA. IV ACCESS LOCATED ON LEFT UPPER ARM, MIDLINE 18G, SL. 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 SAFETY MEASURES IN PLACE, CALL LIGHT WITHIN REACH. WILL CONTINUE TO MONITOR.
[2017-02-11] MEDS: ZINC SULFATE 220 MG CAPSULE PO SCH (08:21)
[2017-02-11] MEDS: LEVOTHYROXINE SODIUM 100 MCG TABLET PO SCH (08:21)
[2017-02-11] MEDS: CARVEDILOL 6.25 MG TABLET PO SCH ×2 (08:21→18:00)
[2017-02-11] MEDS: FERROUS SULFATE (325 MG) 325 MG/TAB TABLET PO SCH ×2 (08:21→18:00)
[2017-02-11] MEDS: MULTIVITAMIN/LUTEIN/MINERALS 1 TAB PO SCH (08:22)
[2017-02-11] MEDS: DULOXETINE HCL 30 MG CAPSULE.DR PO SCH (08:22)
[2017-02-11] MEDS: ACIDOPHILUS/BULGARICUS 1 EACH TAB.CHEW PO SCH ×3 (08:22→17:59)
[2017-02-11] MEDS: DRONEDARONE HYDROCHLORIDE 400 MG TABLET PO SCH ×2 (08:22→18:00)
[2017-02-11] MEDS: CLOPIDOGREL BISULFATE 75 MG TABLET PO SCH (08:22)
[2017-02-11] MEDS: ASPIRIN 81 MG TAB.CHEW PO SCH (08:22)
[2017-02-11] MEDS: DAKINS QUARTER STRENGTH (0.125%) 480 ML BOTTLE TOP SCH (08:23)
[2017-02-11] MEDS: CLOTRIMAZOLE 1% 15 GM TUBE TP SCH ×2 (08:23→17:00)
[2017-02-11] MEDS: MUPIROCIN OINT 2% 22 GM TUBE TP SCH (08:23)
[2017-02-11] MEDS: INSULIN DETEMIR 100 UNIT/ML CARTRIDGE SQ SCH (08:28)
[2017-02-11] MEDS: FUROSEMIDE 80 MG TABLET PO SCH (09:35)
[2017-02-11] MEDS: CEFTRIAXONE 1 G in IV D5W 50 ML IV SCH (09:37)
[2017-02-11 16:00] VITALS: BP 148/79
[2017-02-11] MEDS: GENTAMICIN 0.1% OINT 15 GM TUBE TP SCH (18:01)
--- NOTE | 2017-02-11 18:57 | NUR ---
RN CLOSING NOTES PT IS AWAKE, RESTING QUIETLY IN BED. A/OX3, HOWEVER SPEECH REMAINS GARBLED. NO S/S OF SOB, NO C/O PAIN AT THIS TIME. ALL PT NEEDS ANTICIPATED AND MET. BED LOWERED TO LOWEST POSITION, SIDERAILS RAISED X2. SAFETY MEASURES IN PLACE, CALL LIGHT WITHIN REACH. WILL ENDORSE TO DENTAL RESIDENT FOR CRYSTAL.
--- NOTE | 2017-02-11 19:20 | NUR ---
MS/RN OPENING NOTES PT RECEIVED AWAKE, SITTING UP IN BED. ON ROOM AIR, BREATHING EVEN AND UNLABORED. A/OX3 WITH UNCLEAR SPEECH. SHAVONNE MIDLINE PATENT AND INTACT. BED IN LOW/LOCKED POSITION WITH CALL LIGHT IN REACH. SIDE RAILS UPX2. WILL CONTINUE TO MONITOR
[2017-02-11 20:00] VITALS: BP 120/66
[2017-02-11] MEDS: ATORVASTATIN 40 MG TABLET PO SCH (21:54)
[2017-02-11] MEDS: TAMSULOSIN 0.4 MG CAP.SR.24H PO SCH (21:55)
[2017-02-12] MEDS: AMPICILLIN SODIUM 2 GM in IV NS 0.9% 100 ML IV SCH ×5 (00:56→23:11)
[2017-02-12] MEDS: BLOOD SUGAR DIAGNOSTIC 1 EACH STRIP IN SCH ×4 (06:31→21:22)
[2017-02-12] MEDS: LEVOTHYROXINE SODIUM 100 MCG TABLET PO SCH (06:31)
[2017-02-12] MEDS: INSULIN REGULAR, HUMAN 100 UNIT/ML 3 ML VIAL SQ PRN ×4 (06:32→21:37)
--- NOTE | 2017-02-12 07:00 | NUR ---
MS/RN CLOSING NOTES PT AWAKE, SITTING UP IN BED. HIGH FOWLERS POSITION. ON ROOM AIR, BREATHING EVEN AND UNLABORED. SHAYNE SOB OR PAIN AT THIS TIME. WOUND CARE PROVIDED TO RIGHT FOOT AND PHOTOS TAKEN. SHAVONNE MIDLINE PATENT AND INTACT. MADE PT COMFORTABLE DURING SHIFT. NO SIGNIFICANT CHANGES OVERNIGHT. BED IN LOW/LOCKED POSITION, CALL LIGHT REMAINS IN REACH. SIDE RAILS UPX2. ENDORSED TO DAY SHIFT RN CRYSTAL.
--- NOTE | 2017-02-12 07:10 | NUR ---
ms rn initial notes Received patient in bed, awake, head of bed elevated. No SOB or distress noted on room air saturation of 98%. No complaint of pain or discomfort at this time. Alert and oriented x 3, verbally responsive and able to make needs known. SHAVONNE midline #18 SL intact and patent. Kept patient clean and comfortable in bed, call light with in patient reach, will continue to monitor accordingly.
[2017-02-12 08:00] VITALS: BP_SYST 116; BP_SYST 125; BP_DIAS 71; BP_DIAS 72
[2017-02-12] MEDS: FERROUS SULFATE (325 MG) 325 MG/TAB TABLET PO SCH ×2 (08:13→17:27)
[2017-02-12] MEDS: CARVEDILOL 6.25 MG TABLET PO SCH ×2 (08:13→17:27)
[2017-02-12] MEDS: CLOPIDOGREL BISULFATE 75 MG TABLET PO SCH (08:13)
[2017-02-12] MEDS: ACIDOPHILUS/BULGARICUS 1 EACH TAB.CHEW PO SCH ×3 (08:13→17:27)
[2017-02-12] MEDS: MULTIVITAMIN/LUTEIN/MINERALS 1 TAB PO SCH (08:13)
[2017-02-12] MEDS: FUROSEMIDE 80 MG TABLET PO SCH (08:13)
[2017-02-12] MEDS: ASPIRIN 81 MG TAB.CHEW PO SCH (08:13)
[2017-02-12] MEDS: DULOXETINE HCL 30 MG CAPSULE.DR PO SCH (08:13)
[2017-02-12] MEDS: ZINC SULFATE 220 MG CAPSULE PO SCH (08:13)
[2017-02-12] MEDS: DRONEDARONE HYDROCHLORIDE 400 MG TABLET PO SCH ×2 (08:13→17:27)
[2017-02-12] MEDS: CLOTRIMAZOLE 1% 15 GM TUBE TP SCH ×2 (08:14→17:28)
[2017-02-12] MEDS: DAKINS QUARTER STRENGTH (0.125%) 480 ML BOTTLE TOP SCH (08:14)
[2017-02-12] MEDS: MUPIROCIN OINT 2% 22 GM TUBE TP SCH (08:15)
[2017-02-12] MEDS: INSULIN DETEMIR 100 UNIT/ML CARTRIDGE SQ SCH (08:16)
[2017-02-12] MEDS: CEFTRIAXONE 1 G in IV D5W 50 ML IV SCH (10:38)
[2017-02-12 16:00] VITALS: BP 116/69
[2017-02-12] MEDS: GENTAMICIN 0.1% OINT 15 GM TUBE TP SCH (18:00)
--- NOTE | 2017-02-12 18:53 | NUR ---
ms rn notes Patient refused to take his IV ATB explained the risk and benefits x 3 and still refused. Will continue to monitor accordingly.
--- NOTE | 2017-02-12 19:05 | NUR ---
MS RN OPENING NOTES: RECEIVED PT WATCHING TELEVISION AND EATING HIS DINNER WHILE SITTING ON HIS WHEELCHAIR. PT IS A/OX 1-2 WITH GARBLED SPEECH. NO SOB NOTED. PT HAS SHAVONNE MIDLINE #18G AND IS PATENT AND INTACT. CALL LIGHT WITHIN PT'S REACH. BED KEPT IN LOW, LOCKED POSITION, AND SIDE RAILS X 2UP. WILL CONTINUE TO MONITOR PT.
--- NOTE | 2017-02-12 19:18 | NUR ---
ms rn closing notes All needs provided, attended, and anticipated. Kept patient clean and comfortable. Endorsed to next shift RN to continue care.
[2017-02-12 20:00] VITALS: BP 117/77
--- NOTE | 2017-02-12 20:42 | NUR ---
MS RN NOTES: PT LEFT FOR SMOKE BREAK WITH RETIREMENT PLAN COUNSELOR.
--- NOTE | 2017-02-12 20:55 | NUR ---
MS RN NOTES: PT BACK FROM SMOKE BREAK WITH LABEL DRIER.
[2017-02-12] MEDS: ATORVASTATIN 40 MG TABLET PO SCH (21:21)
[2017-02-12] MEDS: TAMSULOSIN 0.4 MG CAP.SR.24H PO SCH (21:22)
[2017-02-12] MEDS: HYDROCODONE/APAP 5/325MG 1 EACH TABLET PO PRN (21:27)
--- NOTE | 2017-02-12 21:27 | NUR ---
MS RN NOTES: PT COMPLAINING OF 7/10 NECK PAIN. PT WAS ADMINISTERED NORCO 5. WILL CONTINUE TO MONITOR.
--- NOTE | 2017-02-12 21:32 | NUR ---
MS RN NOTES: BLOOD SUGAR WAS 118. NO INSULIN WAS ADMINISTERED. WILL CONTINUE TO MONITOR PT.
[2017-02-12 22:02] VITALS: BP 102/56
--- NOTE | 2017-02-12 22:29 | NUR ---
MS RN NOTES: NOTED PATIENT SLEEPING IN WHEELCHAIR. OFFERED TO GET PT TO BED. PT DOES NOT WANT TO GO TO BED AND REMAIN IN WHEELCAHIR. WILL CONTINUE TO MONITOR.
--- NOTE | 2017-02-13 04:01 | NUR ---
MS RN NOTES: PT FINALLY TRANSFERRED TO BED FROM WHEELCHAIR. WILL CONTINUE TO MONITOR PT.
[2017-02-13] MEDS: AMPICILLIN SODIUM 2 GM in IV NS 0.9% 100 ML IV SCH ×2 (05:11→12:14)
[2017-02-13] MEDS: BLOOD SUGAR DIAGNOSTIC 1 EACH STRIP IN SCH ×2 (06:25→12:02)
--- NOTE | 2017-02-13 07:15 | NUR ---
MS RN CLOSING NOTES: ALL NEEDS WERE ATTENDED AND ANTICIPATED FOR. PT IS ANTICIPATING FOR BREAKFAST. INFORMED HIM THAT IT WILL BE COMING SOON. PT IS A/OX2 WITH SOME UNCLEAR/GARBLED SPEECH. NO S/S OF DISTRESS NOTED. ON ROOM AIR AND TOLERATING WELL. PT HAS SHAVONNE MIDLINE #18G AND HAS BEEN FLUSHED. MIDLINE PATENT AND INTACT. PT ON BED SITTING UP FOR NOW. CALL LIGHT WITHIN PT'S REACH. BED KEPT IN LOW, LOCKED POSITION, AND SIDE RAILS X 2UP. ENDORSED TO AM NURSE FOR CRYSTAL.
--- NOTE | 2017-02-13 07:21 | NUR ---
RN MS INITIAL NOTES Received pt sitting upright in bed waiting for breakfast. a/o x2 with confusion, respirations are even and unlabored, not in any acute distress noted. Denies any pain at this time, w/ no facial grimacing noted. Reminded pt to use call light when assistance is needed, call light is left within reach. Will continue to monitor pt throughtout shift.
[2017-02-13 08:00] VITALS: BP 120/61
[2017-02-13 08:25] LABS: CALCIUM, SERUM 8.5 mg/dL (8.5-10.1); CARBON DIOXIDE 32 mmol/L (21-32); CHLORIDE 102 mmol/L (98-107); CREATININE 1.9 mg/dL (0.6-1.3); GLUCOSE 86 mg/dL (74-106); POTASSIUM 4.3 mmol/L (3.5-5.1); SODIUM SERUM 142 mmol/L (136-145); UREA NITROGEN, BLOOD 75 mg/dL (7-18)
[2017-02-13] MEDS: DULOXETINE HCL 30 MG CAPSULE.DR PO SCH (08:37)
[2017-02-13] MEDS: ASPIRIN 81 MG TAB.CHEW PO SCH (08:38)
[2017-02-13] MEDS: FERROUS SULFATE (325 MG) 325 MG/TAB TABLET PO SCH ×2 (08:38→17:13)
[2017-02-13] MEDS: DRONEDARONE HYDROCHLORIDE 400 MG TABLET PO SCH ×2 (08:38→17:13)
[2017-02-13] MEDS: MULTIVITAMIN/LUTEIN/MINERALS 1 TAB PO SCH (08:38)
[2017-02-13] MEDS: FUROSEMIDE 80 MG TABLET PO SCH (08:38)
[2017-02-13] MEDS: LEVOTHYROXINE SODIUM 100 MCG TABLET PO SCH (08:38)
[2017-02-13] MEDS: ACIDOPHILUS/BULGARICUS 1 EACH TAB.CHEW PO SCH ×3 (08:38→17:13)
[2017-02-13] MEDS: ZINC SULFATE 220 MG CAPSULE PO SCH (08:38)
[2017-02-13] MEDS: CLOPIDOGREL BISULFATE 75 MG TABLET PO SCH (08:38)
[2017-02-13] MEDS: CARVEDILOL 6.25 MG TABLET PO SCH ×2 (08:39→17:13)
[2017-02-13] MEDS: CLOTRIMAZOLE 1% 15 GM TUBE TP SCH ×2 (08:43→17:14)
[2017-02-13] MEDS: MUPIROCIN OINT 2% 22 GM TUBE TP SCH (08:43)
[2017-02-13] MEDS: DAKINS QUARTER STRENGTH (0.125%) 480 ML BOTTLE TOP SCH (08:44)
[2017-02-13] MEDS: INSULIN DETEMIR 100 UNIT/ML CARTRIDGE SQ SCH (09:06)
[2017-02-13] MEDS: CEFTRIAXONE 1 G in IV D5W 50 ML IV SCH (09:11)
[2017-02-13 16:00] VITALS: BP 101/58
[2017-02-13 17:13] VITALS: BP 101/58
--- NOTE | 2017-02-13 18:00 | NUR ---
RN MS Discharge Notes 1800 Patient discharged to [facility] via gurney with and 2 outsole cementer machine in stable condition. A/o x2 w/ confusion, pupils are reactive to light. respirations are even and unlabored. Not in any acute distress noted. Vital signs are WNL. Denies any pain at this time. SHAVONNE Midline dressing changed, right foot wound dressing has been changed. Wound photo taken and placed in pt's chart. Explained the discharged paperwork to pt and Iris. Bedside Endorsement given to EMT, along with paperwork. Iris collected all of pt's belongings. Pt left in stable condition. Report given to Seven at [facility].
== END 2017-02-13 18:06 | DRG 280 ==
LOC: EDUNIT# 17:50 → ER 17:53 → TELE 21:03 → MED 02-10 09:58
PROC: 30233N1 Transfusion of Nonautologous Red Blood Cells into Peripheral Vein, Percutaneous Approach (ICD-10-PCS; 2017-02-09)
PROC: 05H633Z Insertion of Infusion Device into Left Subclavian Vein, Percutaneous Approach (ICD-10-PCS; principal; 2017-02-10)
DX: E11.52 Type 2 diabetes mellitus with diabetic peripheral angiopathy with gangrene (principal); I21.4 Non-ST elevation (NSTEMI) myocardial infarction; I50.33 Acute on chronic diastolic (congestive) heart failure; N17.0 Acute kidney failure with tubular necrosis; E11.22 Type 2 diabetes mellitus with diabetic chronic kidney disease; I48.91 Unspecified atrial fibrillation; M86.8X7 Other osteomyelitis, ankle and foot; E11.40 Type 2 diabetes mellitus with diabetic neuropathy, unspecified; E66.01 Morbid (severe) obesity due to excess calories; B35.1 Tinea unguium; I13.0 Hypertensive heart and chronic kidney disease with heart failure and stage 1 through stage 4 chronic kidney disease, or unspecified chronic kidney disease; Z68.42 Body mass index [BMI] 45.0-49.9, adult; E11.621 Type 2 diabetes mellitus with foot ulcer; D63.8 Anemia in other chronic diseases classified elsewhere; E11.69 Type 2 diabetes mellitus with other specified complication; E03.9 Hypothyroidism, unspecified; E78.5 Hyperlipidemia, unspecified; K21.9 Gastro-esophageal reflux disease without esophagitis; N18.9 Chronic kidney disease, unspecified; Z86.73 Personal history of transient ischemic attack (TIA), and cerebral infarction without residual deficits; R53.1 Weakness; L97.519 Non-pressure chronic ulcer of other part of right foot with unspecified severity; E66.9 Obesity, unspecified; Z89.612 Acquired absence of left leg above knee; F17.210 Nicotine dependence, cigarettes, uncomplicated; G47.30 Sleep apnea, unspecified; I25.10 Atherosclerotic heart disease of native coronary artery without angina pectoris; Z79.4 Long term (current) use of insulin; Z95.5 Presence of coronary angioplasty implant and graft
CPT/HCPCS: 36415; 70450-TC; 71010-TC; 80048-TC; 80061-TC; 80076-TC; 81000-TC; 82962-TC; 83605-TC; 83690-TC; 83735-TC; 83880; 84100-TC; 84443-TC; 84484-TC; 85025-TC; 85730-TC; 86850-TC; 86921-TC; 87040-TC; 87070-TC; 87081-TC; 87086-TC; 87186-TC; A4606; A6253; A6402; A6403; J0290; J0696; J1815; J1940; J2543; J3370; J7030; J7050; J7060; P9016-BL; Z7610

== ENCOUNTER 2017-04-03 12:36 | Outpatient (CLI) | payer MEDICARE, BC ==
[~2017-04-03 12:36] MED LIST changes: -FERR-58 PO; +FERR325T23 PO; +IOHEXOL-350 100 ML VIAL IV ONE; +IV NS 0.9% 250 ML IV ONE
== END 2017-04-03 23:59 | disposition home health service (06) ==
LOC: WOU 12:36
PROVIDERS: ATTEND Specialist
DX: E11.621 Type 2 diabetes mellitus with foot ulcer (principal); L97.416 Non-pressure chronic ulcer of right heel and midfoot with bone involvement without evidence of necrosis; Z89.612 Acquired absence of left leg above knee; N50.89 Other specified disorders of the male genital organs; F17.210 Nicotine dependence, cigarettes, uncomplicated; E05.00 Thyrotoxicosis with diffuse goiter without thyrotoxic crisis or storm; I25.10 Atherosclerotic heart disease of native coronary artery without angina pectoris; Z95.5 Presence of coronary angioplasty implant and graft
CPT/HCPCS: A6402; G0463; J7050; Q9967

== ENCOUNTER 2017-04-11 13:29 | Outpatient (CLI) | payer MEDICARE, BC ==
[~2017-04-11 13:29] MED LIST changes: -IOHEXOL-350 100 ML VIAL IV ONE; -IV NS 0.9% 250 ML IV ONE
== END 2017-04-11 23:59 | disposition home health service (06) ==
LOC: WOU 13:29
PROVIDERS: ATTEND Specialist
DX: E11.621 Type 2 diabetes mellitus with foot ulcer (principal); L97.416 Non-pressure chronic ulcer of right heel and midfoot with bone involvement without evidence of necrosis; E11.51 Type 2 diabetes mellitus with diabetic peripheral angiopathy without gangrene; Z89.612 Acquired absence of left leg above knee; F17.210 Nicotine dependence, cigarettes, uncomplicated; I25.10 Atherosclerotic heart disease of native coronary artery without angina pectoris; E89.0 Postprocedural hypothyroidism; G47.30 Sleep apnea, unspecified; Z99.3 Dependence on wheelchair
CPT/HCPCS: A6209; A6402; G0463

== ENCOUNTER 2017-04-24 13:34 | Outpatient (CLI) | payer MEDICARE, BC | END 2017-04-24 23:59 | disposition home health service (06) | LOC: WOU 13:34 | PROVIDERS: ATTEND Podiatrist Foot & Ankle Surgery | DX: E11.621 Type 2 diabetes mellitus with foot ulcer (principal); L97.516 Non-pressure chronic ulcer of other part of right foot with bone involvement without evidence of necrosis; Z89.612 Acquired absence of left leg above knee; E11.51 Type 2 diabetes mellitus with diabetic peripheral angiopathy without gangrene; N50.89 Other specified disorders of the male genital organs; Z99.3 Dependence on wheelchair; Z89.421 Acquired absence of other right toe(s); G47.30 Sleep apnea, unspecified; Z79.4 Long term (current) use of insulin; Z79.899 Other long term (current) drug therapy; M86.8X7 Other osteomyelitis, ankle and foot; E11.69 Type 2 diabetes mellitus with other specified complication | CPT/HCPCS: 11044; 11047; A6402 ==

== ENCOUNTER 2017-05-04 11:59 | Outpatient (CLI) | payer MEDICARE, BC | END 2017-05-04 23:59 | disposition home health service (06) | LOC: WOU 11:59 | PROVIDERS: ATTEND Podiatrist Foot & Ankle Surgery | DX: E11.621 Type 2 diabetes mellitus with foot ulcer (principal); E11.622 Type 2 diabetes mellitus with other skin ulcer; L97.414 Non-pressure chronic ulcer of right heel and midfoot with necrosis of bone; L97.812 Non-pressure chronic ulcer of other part of right lower leg with fat layer exposed; Z89.612 Acquired absence of left leg above knee; R60.0 Localized edema; E11.42 Type 2 diabetes mellitus with diabetic polyneuropathy; E11.69 Type 2 diabetes mellitus with other specified complication; M86.8X7 Other osteomyelitis, ankle and foot; Z99.3 Dependence on wheelchair; E11.51 Type 2 diabetes mellitus with diabetic peripheral angiopathy without gangrene | CPT/HCPCS: 11042; 11044; 11047; A6253; A6402 ==

== ENCOUNTER 2017-05-11 11:24 | Outpatient (CLI) | payer MEDICARE, BC | END 2017-05-11 23:59 | disposition home health service (06) | LOC: WOU 11:24 | PROVIDERS: ATTEND Podiatrist Foot & Ankle Surgery | DX: E11.621 Type 2 diabetes mellitus with foot ulcer (principal); L97.516 Non-pressure chronic ulcer of other part of right foot with bone involvement without evidence of necrosis; L97.812 Non-pressure chronic ulcer of other part of right lower leg with fat layer exposed; Z89.612 Acquired absence of left leg above knee; I89.0 Lymphedema, not elsewhere classified; R60.0 Localized edema; Z99.3 Dependence on wheelchair; E11.51 Type 2 diabetes mellitus with diabetic peripheral angiopathy without gangrene; Z89.421 Acquired absence of other right toe(s); G47.30 Sleep apnea, unspecified; E11.69 Type 2 diabetes mellitus with other specified complication; M86.9 Osteomyelitis, unspecified; Z79.4 Long term (current) use of insulin; Z79.82 Long term (current) use of aspirin | CPT/HCPCS: 11042; 11043; 11046; A6253; A6402 ×2 ==

== ENCOUNTER 2017-05-22 13:25 | Outpatient (CLI) | payer MEDICARE, BC ==
[~2017-05-22 13:25] MED LIST changes: -SPIR25TA4 PO; +SPIR25TA6 PO
== END 2017-05-22 23:59 | disposition home health service (06) ==
LOC: WOU 13:25
PROVIDERS: ATTEND Podiatrist Foot & Ankle Surgery
DX: E11.621 Type 2 diabetes mellitus with foot ulcer (principal); L97.416 Non-pressure chronic ulcer of right heel and midfoot with bone involvement without evidence of necrosis; L97.812 Non-pressure chronic ulcer of other part of right lower leg with fat layer exposed; E11.622 Type 2 diabetes mellitus with other skin ulcer; L03.115 Cellulitis of right lower limb; E11.65 Type 2 diabetes mellitus with hyperglycemia; R60.0 Localized edema; Z89.612 Acquired absence of left leg above knee; Z99.3 Dependence on wheelchair; E11.51 Type 2 diabetes mellitus with diabetic peripheral angiopathy without gangrene; E11.69 Type 2 diabetes mellitus with other specified complication; M86.8X7 Other osteomyelitis, ankle and foot; Z79.4 Long term (current) use of insulin
CPT/HCPCS: 11042; 11043; 87070-TC; 87186-TC; A6253; A6402; A6407

== ENCOUNTER 2017-05-25 12:34 | Outpatient (CLI) | payer MEDICARE, BC | END 2017-05-25 23:59 | disposition home health service (06) | LOC: WOU 12:34 | PROVIDERS: ATTEND Podiatrist Foot & Ankle Surgery | DX: E11.621 Type 2 diabetes mellitus with foot ulcer (principal); L97.413 Non-pressure chronic ulcer of right heel and midfoot with necrosis of muscle; L97.812 Non-pressure chronic ulcer of other part of right lower leg with fat layer exposed; E11.51 Type 2 diabetes mellitus with diabetic peripheral angiopathy without gangrene; L03.90 Cellulitis, unspecified; R60.9 Edema, unspecified; Z89.612 Acquired absence of left leg above knee; Z79.4 Long term (current) use of insulin; G47.30 Sleep apnea, unspecified; Z99.3 Dependence on wheelchair; Z79.2 Long term (current) use of antibiotics | CPT/HCPCS: 11042; 11043; 11046; A6253; A6402 ×2; A6407 ==

== ENCOUNTER 2017-05-29 12:50 | Outpatient (CLI) | payer MEDICARE, BC | END 2017-05-29 23:59 | disposition home health service (06) | LOC: WOU 12:50 | PROVIDERS: ATTEND Podiatrist Foot & Ankle Surgery | DX: E11.621 Type 2 diabetes mellitus with foot ulcer (principal); L97.416 Non-pressure chronic ulcer of right heel and midfoot with bone involvement without evidence of necrosis; E11.622 Type 2 diabetes mellitus with other skin ulcer; L97.812 Non-pressure chronic ulcer of other part of right lower leg with fat layer exposed; L97.819 Non-pressure chronic ulcer of other part of right lower leg with unspecified severity; Z89.612 Acquired absence of left leg above knee; E66.9 Obesity, unspecified; Z68.41 Body mass index [BMI] 40.0-44.9, adult; R60.0 Localized edema; Z99.3 Dependence on wheelchair; E11.51 Type 2 diabetes mellitus with diabetic peripheral angiopathy without gangrene; G47.30 Sleep apnea, unspecified; Z79.4 Long term (current) use of insulin; Z79.82 Long term (current) use of aspirin | CPT/HCPCS: 11042; 11044; 11047; A6253; A6402; A6407 ==

== ENCOUNTER 2017-06-01 13:12 | Outpatient (CLI) | payer MEDICARE, BC | END 2017-06-01 23:59 | disposition home health service (06) | LOC: WOU 13:12 | PROVIDERS: ATTEND Podiatrist Foot & Ankle Surgery | DX: E11.621 Type 2 diabetes mellitus with foot ulcer (principal); L97.516 Non-pressure chronic ulcer of other part of right foot with bone involvement without evidence of necrosis; L97.812 Non-pressure chronic ulcer of other part of right lower leg with fat layer exposed; E11.69 Type 2 diabetes mellitus with other specified complication; M86.8X7 Other osteomyelitis, ankle and foot; Z99.3 Dependence on wheelchair; E66.9 Obesity, unspecified; Z68.41 Body mass index [BMI] 40.0-44.9, adult; Z89.612 Acquired absence of left leg above knee; E11.40 Type 2 diabetes mellitus with diabetic neuropathy, unspecified; I87.2 Venous insufficiency (chronic) (peripheral); N50.89 Other specified disorders of the male genital organs; Z79.899 Other long term (current) drug therapy; Z79.4 Long term (current) use of insulin | CPT/HCPCS: 11042; 11043; A6253; A6402; A6407 ==

== ENCOUNTER 2017-06-08 12:08 | Outpatient (CLI) | payer MEDICARE, BC ==
[2017-06-08] MEDS ORDERED: CELLULOSE,OXIDIZED 1 PKT EACH MC ONE (12:09)
== END 2017-06-08 23:59 | disposition home health service (06) ==
LOC: WOU 12:08
PROVIDERS: ATTEND Podiatrist Foot & Ankle Surgery
DX: E11.621 Type 2 diabetes mellitus with foot ulcer (principal); L97.416 Non-pressure chronic ulcer of right heel and midfoot with bone involvement without evidence of necrosis; L97.812 Non-pressure chronic ulcer of other part of right lower leg with fat layer exposed; L03.115 Cellulitis of right lower limb; I89.0 Lymphedema, not elsewhere classified; Z89.612 Acquired absence of left leg above knee; Z99.3 Dependence on wheelchair; R60.9 Edema, unspecified; Z87.39 Personal history of other diseases of the musculoskeletal system and connective tissue; Z79.82 Long term (current) use of aspirin; Z79.4 Long term (current) use of insulin; Z79.891 Long term (current) use of opiate analgesic
CPT/HCPCS: 11042; 11043; 11046; 82962; A6253 ×2; A6402 ×2; A6407

== ENCOUNTER 2017-06-11 21:52 | Inpatient (IN) | payer MEDICARE, BC ==
[~2017-06-11] VITALS: Ht 167.6 cm; Wt 121.1 kg
--- NOTE | 2017-06-11 22:13 | NUR ---
BIBWIFE FOR SOB X 2 DAYS. PT AOX3 RR EVEN AND UNLABORED. NO SOB NOTED. NAD NOTED. NO NVD AT THIS TIME. PT GOWNED AND PLACED ON MONTIOR WAITING FOR MD HARO. PT NOTED WITH RIGHT FOOT DRESSING BLEEDING. PT ALSO NOTED WITH LEFT AKA. PT
--- NOTE | 2017-06-11 22:40 | NUR ---
DR. MALONEY AT BEDSIDE FOR EVAL.
--- NOTE | 2017-06-11 22:57 | NUR ---
RADIOLOGY AT BEDSIDE FOR XR
[2017-06-12] VITALS (50 sets, daily range): BP systolic 87–142; BP diastolic 47–90
--- NOTE | 2017-06-12 00:19 | NUR ---
CALLED TIERA PER HAIDER GREGORIO REQUEST. VM LEFT WAITING FOR CALL BACK
[2017-06-12] MEDS ORDERED: NITROGLYCERIN PACKET 1 GM PACKET TD ONE (01:00)
[2017-06-12] MEDS ORDERED: FUROSEMIDE 40 MG/4 ML VIAL IV ONE (01:00)
[2017-06-12] MEDS ORDERED: GELATIN SPONGE,ABSORBABLE 1 SPONGE SPONGE TP ONE (01:00)
[2017-06-12 01:37] LABS: BASOPHILS % (AUTO) 0.4 % (0.0-2.0); EOSINOPHILS % (AUTO) 0.7 % (0.0-6.0); HEMATOCRIT 25 % (39-51); HEMOGLOBIN 7.8 g/dL (13.5-17.5); LYMPHOCYTES # (AUTO) 0.8 /CMM (0.8-4.8); LYMPHOCYTES % (AUTO) 13.3 % (20.0-44.0); MEAN CORPUSCULAR HGB CONC 32 g/dl (31.0-36.0); MEAN CORPUSCULAR VOLUME 79 fL (80-96); MONOCYTES # (AUTO) 0.5 /CMM (0.1-1.30); MONOCYTES % (AUTO) 8.9 % (2.0-12.0); NEUTROPHILS # (AUTO) 4.4 /CMM (1.8-8.9); NEUTROPHILS % (AUTO) 76.7 % (43.0-81.0); PLATELET COUNT (AUTO) 237 /CMM (150-450); RDW COEFFICIENT OF VARIATION 21.6 (11.5-15.0); RED BLOOD CELL COUNT(AUTO) 3.14 MIL/uL (4.5-6.0); WHITE BLOOD COUNT (AUTO) 5.8 K/uL (4.3-11.0)
[2017-06-12 01:43] LABS: CALCIUM, SERUM 7.8 mg/dL (8.5-10.1); CARBON DIOXIDE 31 mmol/L (21-32); CHLORIDE 102 mmol/L (98-107); CREATININE 1.7 mg/dL (0.6-1.3); GLUCOSE 150 mg/dL (74-106); POTASSIUM 4.1 mmol/L (3.5-5.1); SODIUM SERUM 141 mmol/L (136-145); UREA NITROGEN, BLOOD 39 mg/dL (7-18)
[2017-06-12 01:45] LABS: INR 1.12 (0.87-1.13)
[2017-06-12 01:51] LABS: TROPONIN I 0.079 ng/mL (0.00-0.056)
[2017-06-12 01:57] LABS: ALANINE AMINOTRANSFERASE 20 U/L (12-78); ALBUMIN 2.8 g/dL (3.4-5.0); ALKALINE PHOSPHATASE 247 U/L (46-116); ASPARTATE AMINOTRANSFERASE 19 U/L (15-37); B-TYPE NATRIURETIC PEPTIDE 4808 PG/ML (0-125); BILIRUBIN,DIRECT 0.2 mg/dL (0.0-0.2); BILIRUBIN,TOTAL 0.5 mg/dL (0.2-1.0); TOTAL PROTEIN, SERUM 8.2 g/dL (6.4-8.2)
[2017-06-12] MEDS ORDERED: IPRATROPIUM NEB FS 0.5 MG/2.5 ML AMPUL.NEB NEB ONE ×2 (02:30→04:00)
[2017-06-12] MEDS ORDERED: ALBUTEROL FS 2.5 MG/3 ML VIAL.NEB NEB ONE (02:30)
--- NOTE | 2017-06-12 02:30 | NUR ---
RT PAGED FOR BREATHING TX.
--- NOTE | 2017-06-12 02:34 | NUR ---
DR. MALONEY AT BEDSIDE FOR OCCULT STOOL EVAL.
--- NOTE | 2017-06-12 02:35 | NUR ---
PT SCROTUM NOTED SWOLLEN. DR. MALONEY MADE AWARE
--- NOTE | 2017-06-12 02:42 | NUR ---
RT AT BEDSIDE FOR BREATHING TX.
--- NOTE | 2017-06-12 02:48 | NUR ---
LAB AT BEDSIDE FOR BLOOD DRAW.
--- NOTE | 2017-06-12 03:25 | NUR ---
TELE 323-2
[2017-06-12] MEDS ORDERED: METOPROLOL TARTRATE 25 MG TABLET PO SCH (04:00)
[2017-06-12] MEDS ORDERED: ACETAMINOPHEN 325 MG TABLET PO PRN (04:00)
[2017-06-12] MEDS ORDERED: MORPHINE SULFATE INJ 2 MG/ML DISP.SYRIN IV PRN (04:00)
[2017-06-12] MEDS: SIMVASTATIN 20 MG TABLET PO SCH ×2 (04:00→21:47)
[2017-06-12] MEDS ORDERED: ALBUTEROL FS 2.5 MG/0.5 ML VIAL.NEB NEB ONE (04:00)
[2017-06-12] MEDS ORDERED: NITROGLYCERIN 0.4 MG/TAB BOTTLE SL PRN ×2 (04:00→08:00)
--- NOTE | 2017-06-12 04:02 | NUR ---
PT PLACED ON SIMPLE MASK PER MD 4LPM D/T MOUTH BREATHING.
--- NOTE | 2017-06-12 04:54 | NUR ---
PT TRANSFERRED PER ACLS PROTOCOL.
--- NOTE | 2017-06-12 05:15 | NUR ---
SOFTWARE APPLICATIONS ARCHITECT NOTE RECEIVED PATIENT AWAKE VIA [facility] FROM ER. PATIENT IS CONFUSED AT THIS TIME WITH GARBLED SPEECH. RECEIVING 4L O2 VIA SIMPLE MASK. VS WNL. PATIENT DENIES ANY PAIN AT THIS TIME. RESPONDS TO NAME AND TACTILE STIMULI. IV SITE INTACT, WITH NO REDNESS NOTED. WOUND TO RIGHT FOOT CLEANED AND DRESSED. PICTURES TAKEN AND PLACED IN CHART. WOUND CONSULT ORDERED. EXTREMITIES ELEVATED WITH PILLOWS. ORIENTED PATIENT TO ROOM AND TO UNIT. BED LOCKED AND IN LOWEST POSITION. SIDE RAILS UP, CALL LIGHT WITHIN REACH. WILL CONTINUE TO MONITOR.
--- NOTE | 2017-06-12 06:31 | NUR ---
CONDENSER SETTER NOTE PATIENT SLEEPING AT THIS TIME. NO DISTRESS NOTED. ALL NEEDS MET AND ATTENDED TO. WILL ENDORSE TO DAY SHIFT FOR CRYSTAL.
--- NOTE | 2017-06-12 07:45 | NUR ---
tele learning and development director: cardio consult seen and examined by dr. hawthorne with verbal order to do stat abg. order read back and carried out and acknowledged.
[2017-06-12] MEDS ORDERED: BISACODYL SUPP (10 MG) 10 MG/SUPP.RECT SUPP.RECT RC PRN (08:00)
[2017-06-12] MEDS ORDERED: BUMETANIDE INJ 8 MG in IV NS 0.9% 48 ML IV ONE (08:00)
[2017-06-12] MEDS ORDERED: MAGNESIUM HYDROXIDE 30 ML UDC PO PRN (08:00)
[2017-06-12] MEDS ORDERED: INSULIN REGULAR, HUMAN 100 UNIT/ML 3 ML VIAL SQ SCH (08:00)
[2017-06-12] MEDS: LEVOTHYROXINE SODIUM 100 MCG TABLET PO SCH (08:00)
[2017-06-12 08:20] LABS: ABG BASE EXCESS 2.9 mmol/L; ABG OXYGEN SATURATION 97.1 % (92.0-98.5); ABG PH 7.264 (7.350-7.450); ABG PO2 116.1 mmHg (75.0-100.0); AaDO2 117.8 mmHg; COHb 2.4 % (0.5-1.5); MetHb 0.2 % (0.0-1.5); O2Hb 94.6 % (94.0-97.0); SITE, ABG Left Radial
--- NOTE | 2017-06-12 08:22 | NUR ---
tele home service demonstrator: notes stat abg resulted and showed to dr. hawthorne with order to transfer to icu with bipap. order read back and carried out and acknowledged. cn and supervisor riprap placing aware. awaiting bed assignment. pt made aware. 2d echo in progress. will continue to monitor.
--- NOTE | 2017-06-12 08:45 | NUR ---
tele station jailer: notes am rendered by staff. getting ready to go to icu via bed.
[2017-06-12] MEDS ORDERED: MORPHINE SULFATE INJ 4 MG/ML DISP.SYRIN IV PRN (08:56)
[2017-06-12 08:59] LABS: THYROID STIMULATING HORMONE 5.045 uIU/mL (0.358-3.74)
[2017-06-12] MEDS ORDERED: Medication Not On Formulary EA (Arginine/Ascorbate Sod/Vite AC (Arginaid Powder) 1 EACH) PO SCH (09:00)
[2017-06-12] MEDS: LACTOBACILLUS RHAMNOSUS GG 1 EACH CAP.SPRINK PO SCH ×2 (09:00→16:53)
[2017-06-12] MEDS ORDERED: FUROSEMIDE 40 MG/4 ML VIAL IV SCH (09:00)
[2017-06-12] MEDS: ZINC SULFATE 220 MG CAPSULE PO SCH (09:00)
[2017-06-12] MEDS: ASCORBIC ACID 500 MG TABLET PO SCH (09:00)
[2017-06-12] MEDS: CLOPIDOGREL BISULFATE 75 MG TABLET PO SCH (09:00)
[2017-06-12] MEDS: CALCIUM CARB 600MG /VIT D 1 EACH TABLET PO SCH (09:00)
[2017-06-12] MEDS: LOSARTAN POTASSIUM 25 MG TABLET PO SCH (09:00)
[2017-06-12] MEDS: FERROUS SULFATE (325 MG) 325 MG/TAB TABLET PO SCH ×2 (09:00→16:51)
[2017-06-12] MEDS: MULTIVIT, IRON, MIN NO. 8, FA 1 TAB PO SCH (09:00)
[2017-06-12] MEDS: DULOXETINE HCL 30 MG CAPSULE.DR PO SCH (09:00)
[2017-06-12] MEDS ORDERED: ASPIRIN 81 MG TAB.CHEW PO SCH (09:00)
[2017-06-12] MEDS: DOCUSATE SODIUM 100 MG CAPSULE PO SCH ×2 (09:00→16:49)
[2017-06-12] MEDS: DRONEDARONE HYDROCHLORIDE 400 MG TABLET PO SCH ×2 (09:00→16:52)
[2017-06-12] MEDS: ASPIRIN EC 81 MG TABLET.DR PO SCH (09:00)
[2017-06-12] MEDS: CARVEDILOL 6.25 MG TABLET PO SCH ×2 (09:00→16:50)
[2017-06-12] MEDS: INSULIN GLARGINE, 100 UNIT/ML CARTRIDGE SQ SCH (09:00)
[2017-06-12] MEDS ORDERED: ENOXAPARIN SODIUM 40 MG/0.4 ML DISP.SYRIN SQ SCH (09:00)
[2017-06-12] MEDS: SPIRONOLACTONE 25 MG TABLET PO SCH (09:00)
[2017-06-12] MEDS: METOLAZONE 2.5 MG TABLET PO SCH (09:00)
--- NOTE | 2017-06-12 09:00 | NUR ---
tele bilingual medical assistant: notes placed a call to joseph (), but no answer, left message to call here via answering machine.
--- NOTE | 2017-06-12 09:10 | NUR ---
tele electrostatic powder coating technician: notes transfer pt to icu via bed with acls protocol. report given to dick (chapo) for continuity of care.
--- NOTE | 2017-06-12 09:10 | NUR ---
PT PLACED ON BIPAP 20/5 RR16, 50%. KS PELEG IS HERE TO SEE PT. PT IS LETHARGIC, NOT ABLE TO TAKE MEDICINE PO. REPORTED TO DR. DILLON TO HOLD MEDS, WILL GET ABG IN 1H POST BIPAP INITIATION.
[2017-06-12 09:23] LABS: MAGNESIUM 2.7 mg/dL (1.8-2.4); PHOSPHORUS 4.3 mg/dL (2.5-4.9)
--- NOTE | 2017-06-12 10:00 | NUR ---
F/C # 16 inserted, 450 ml clear yellow urine obtained.
[2017-06-12] MEDS: DAKINS QUARTER STRENGTH (0.125%) 480 ML BOTTLE TOP SCH (10:37)
[2017-06-12 11:00] LABS: ABG BASE EXCESS 4.7 mmol/L; ABG OXYGEN SATURATION 98.6 % (92.0-98.5); ABG PCO2 90.8 mmHg (35.0-45.0); ABG PH 7.195 (7.350-7.450); AaDO2 92.4 mmHg; COHb 2.5 % (0.5-1.5); MetHb 0.7 % (0.0-1.5); O2Hb 95.4 % (94.0-97.0); SITE, ABG Right Brachial; VENT MODE, BG IPAP 20/ EPAP 5
[2017-06-12] MEDS ORDERED: PROPOFOL 100 ML IV PRN ×2 (12:00)
[2017-06-12] MEDS ORDERED: BLOOD SUGAR DIAGNOSTIC 1 EACH STRIP IN SCH (12:00)
--- NOTE | 2017-06-12 12:15 | NUR ---
INTUBATED BY ANESTHESIOLOGIST FOR AIRWAY PROTECTION. INTUBATED WITH 7.5 ET TUBE SECURED @ 26 CM [id number]. CO2 DETECTOR CHANGED TO GOLD COLOR POST INTUBATION. BREATH SOUNDS CLEAR BILATERAL WITH SYMMETRICAL CHEST RISE EACH MANUAL RESUSCITATION ON POST INTUBATION. VENT PARAMETERS BELLOW ORDER: AC 18 VT 550 FIO2 100% PEEP +5 VENTILATOR IS PLUGGED INTO RED OUTLET WITH ALARMS ON AND FUNCTIONING. AMBUBAG @ HOB. Addendum: 06/12/17 at 1224 by FELA DUNN RT Amended: Links added.
--- NOTE | 2017-06-12 12:15 | NUR ---
Pt intubated by anesthesiologist. ett # 7.5 26 cm. will obtain crx stat.
--- NOTE | 2017-06-12 12:30 | NUR ---
NGT # [id number] r powell. verified by 2 RNs. will confirm by cxr.
[2017-06-12] MEDS: CEFAZOLIN 2 GM in IV NS 0.9% 50 ML IV SCH ×2 (13:30→20:58)
[2017-06-12] MEDS: PROPOFOL 100 ML IV PRN ×2 (13:31→18:50)
[2017-06-12 13:45] LABS: ABG BASE EXCESS 5.8 mmol/L; ABG OXYGEN SATURATION 98.9 % (92.0-98.5); ABG PCO2 52.5 mmHg (35.0-45.0); ABG PH 7.396 (7.350-7.450); ABG PO2 188.6 mmHg (75.0-100.0); AaDO2 471.9 mmHg; COHb 1.7 % (0.5-1.5); MetHb 0.8 % (0.0-1.5); O2Hb 96.4 % (94.0-97.0); PEEP,BG 5 cm H2O; SITE, ABG Right Brachial; VT, ABG 550 mL
--- NOTE | 2017-06-12 13:55 | NUR ---
FiO2 titrated to 50% and RR changed to 14 per MD order. Addendum: 06/12/17 at 1355 by NANCY JEAN RT Amended: Links added.
[2017-06-12] MEDS ORDERED: ETOMIDATE 2 MG/ML VIAL IV ONE ×2 (14:09→14:11)
[2017-06-12] MEDS ORDERED: ROCURONIUM BROMIDE 50 MG/5 ML IV ONE (14:11)
[2017-06-12] MEDS ORDERED: SUCCINYLCHOLINE CHLORIDE 20 MG/ML VIAL IV ONE (14:11)
[2017-06-12] MEDS: PANTOPRAZOLE 40 MG VIAL IV SCH (14:16)
[2017-06-12] MEDS ORDERED: DEXTROSE 50%-WATER 50 ML DISP.SYRIN IV PRN (14:30)
[2017-06-12 16:50] LABS: BASOPHILS % (AUTO) 0.3 % (0.0-2.0); EOSINOPHILS % (AUTO) 0.7 % (0.0-6.0); HEMATOCRIT 24 % (39-51); HEMOGLOBIN 7.8 g/dL (13.5-17.5); LYMPHOCYTES # (AUTO) 0.7 /CMM (0.8-4.8); LYMPHOCYTES % (AUTO) 13.2 % (20.0-44.0); MEAN CORPUSCULAR HGB CONC 32 g/dl (31.0-36.0); MEAN CORPUSCULAR VOLUME 79 fL (80-96); MONOCYTES # (AUTO) 0.4 /CMM (0.1-1.30); NEUTROPHILS % (AUTO) 77.8 % (43.0-81.0); PLATELET COUNT (AUTO) 224 /CMM (150-450); RDW COEFFICIENT OF VARIATION 20.3 (11.5-15.0); RED BLOOD CELL COUNT(AUTO) 3.07 MIL/uL (4.5-6.0); WHITE BLOOD COUNT (AUTO) 5.1 K/uL (4.3-11.0)
[2017-06-12] MEDS: ALBUTEROL HALF STRENGTH 1.25 MG/3 ML VIAL.NEB NEB SCH ×2 (17:04→19:49)
[2017-06-12] MEDS: IPRATROPIUM NEB FS 0.5 MG/2.5 ML AMPUL.NEB NEB SCH ×2 (17:06→19:49)
--- NOTE | 2017-06-12 18:00 | NUR ---
pt assisted with bed/bath, oral care, skin care/wound care as ordered.
--- NOTE | 2017-06-12 18:16 | NUR ---
Spoke with Iris, patient lives at home with spouse on the 1st floor apartment with ramp access. Patient is wheelchair bound, requires max assist with adl's. Patient has a walker and wheelchair, no homehealth reported. Current plan is home with homehealth vs SNF depend on patient level of care needed on discharge per . Addendum: 06/12/17 at 1817 by GERARD SILVA RN Amended: Links added.
[2017-06-12] MEDS: BLOOD SUGAR DIAGNOSTIC 1 EACH STRIP IN SCH ×2 (18:50→23:35)
--- NOTE | 2017-06-12 20:00 | NUR ---
REGISTRATION SPECIALIST NOTE RECEIVED PT IN BED SEDATED. ON DIPRIVAN 25 MCG/KG/MIN INFUSING AT RT WRIST, NO S/S OF INFILTRATION NOTED. LAC #18 G WITH TKO NS, NO S/S OF INFILTRATION NOTED. NO DISTRESS OR DISCOMFORT NOTED. ETT 26/7.5 AT LIP LINE. ON VENT TOLERATING THE SETTINGS WELL. RT NARE WITH NGT INTACT AND PATENT, CLAMPED. ON TELE MONITOR SR WITH BBB HR 69. SUCTIONED THE PT FREQUENTLY, WHITE THIN SECRETIONS NOTED. KEPT RIGHT LEG ELEVATED DUE TO EDEMA. OFFLOAD RT HEEL. LT LEG AMPUTATION ABOVE KNEE. ALL NEEDS ATTENDED. REPOSITION HIM FOR SKIN MANAGEMENT. F/C INTACT AND PATENT DRAINING YELLOWISH COLOR URINE. DRESSING ON RT FOOT I/C/D. SIDE RAILS UP X 3 AND CALL LIGHT WITHN REACH. VSS. CONTINUE TO MONITOR HIM.
[2017-06-12] MEDS: TAMSULOSIN 0.4 MG CAP.SR.24H PO SCH (21:47)
[2017-06-12] MEDS: ATORVASTATIN 40 MG TABLET PO SCH (21:47)
[2017-06-13] VITALS (42 sets, daily range): BP systolic 91–116; BP diastolic 41–65
[2017-06-13] MEDS: PROPOFOL 100 ML IV PRN ×7 (00:34→22:26)
[2017-06-13] MEDS: ALBUTEROL HALF STRENGTH 1.25 MG/3 ML VIAL.NEB NEB SCH ×4 (01:49→20:06)
[2017-06-13] MEDS: IPRATROPIUM NEB FS 0.5 MG/2.5 ML AMPUL.NEB NEB SCH ×4 (01:49→20:06)
[2017-06-13 04:44] LABS: BASOPHILS % (AUTO) 0.4 % (0.0-2.0); EOSINOPHILS % (AUTO) 0.3 % (0.0-6.0); HEMATOCRIT 25 % (39-51); HEMOGLOBIN 7.7 g/dL (13.5-17.5); LYMPHOCYTES # (AUTO) 0.8 /CMM (0.8-4.8); LYMPHOCYTES % (AUTO) 11.9 % (20.0-44.0); MEAN CORPUSCULAR HGB CONC 31 g/dl (31.0-36.0); MEAN CORPUSCULAR VOLUME 80 fL (80-96); MONOCYTES # (AUTO) 0.5 /CMM (0.1-1.30); MONOCYTES % (AUTO) 8.2 % (2.0-12.0); NEUTROPHILS # (AUTO) 5.1 /CMM (1.8-8.9); NEUTROPHILS % (AUTO) 79.2 % (43.0-81.0); PLATELET COUNT (AUTO) 242 /CMM (150-450); RDW COEFFICIENT OF VARIATION 21.4 (11.5-15.0); WHITE BLOOD COUNT (AUTO) 6.4 K/uL (4.3-11.0)
[2017-06-13] MEDS: CEFAZOLIN 2 GM in IV NS 0.9% 50 ML IV SCH ×3 (04:58→22:25)
[2017-06-13 05:11] LABS: TROPONIN I 0.203 ng/mL (0.00-0.056)
[2017-06-13 05:14] LABS: ALANINE AMINOTRANSFERASE 8 U/L (12-78); ALBUMIN 2.2 g/dL (3.4-5.0); ALKALINE PHOSPHATASE 192 U/L (46-116); ASPARTATE AMINOTRANSFERASE 13 U/L (15-37); BILIRUBIN,TOTAL 0.5 mg/dL (0.2-1.0); CALCIUM, SERUM 7.9 mg/dL (8.5-10.1); CARBON DIOXIDE 35 mmol/L (21-32); CHLORIDE 105 mmol/L (98-107); CREATININE 1.4 mg/dL (0.6-1.3); MAGNESIUM 2.6 mg/dL (1.8-2.4); PHOSPHORUS 3.3 mg/dL (2.5-4.9); POTASSIUM 3.4 mmol/L (3.5-5.1); SODIUM SERUM 144 mmol/L (136-145); TOTAL PROTEIN, SERUM 6.9 g/dL (6.4-8.2); UREA NITROGEN, BLOOD 33 mg/dL (7-18)
[2017-06-13 05:19] LABS: CHOLESTEROL 58 mg/dL (<200); HDL CHOLESTEROL 17 mg/dL (40-60); LDL 32 mg/dL (0-99); TRIGLYCERIDES 105 mg/dL (30-150)
[2017-06-13 05:25] LABS: GLUCOSE 88 mg/dL (74-106)
[2017-06-13] MEDS: BLOOD SUGAR DIAGNOSTIC 1 EACH STRIP IN SCH ×3 (05:48→18:28)
--- NOTE | 2017-06-13 06:28 | NUR ---
LAUNDRY TECHNICIAN NOTE DR RUIZ MADE AWARE OF TROP LEVEL WENT UP TO 0.203 AND ALSO INFORMED HIM REGARDING ABNORMAL ECG. NO NEW ORDER GIVEN. CONTINUE TO MONITOR.
--- NOTE | 2017-06-13 06:45 | NUR ---
LOCK SETTER NOTE PT IN BED SEDATED, CONTINUE ON DIPRIVAN 25MCG/KG/MIN. NO AGITATION OR RESTLESS NOTED DURING THE SHIFT. BOTH IV SITE RT WRIST AND LAC INTACT AND PATENT. RT NARE NGT INTACT AND PATENT. F/C INTACT AND PATENT DRAINING YELLOWISH COLOR URINE. PT TOLERATING VENT SETTINGS WELL. SUCTION HIM FREQUENTLY WHITISH THICK SECRETIONS NOTED. RT CHANGED THE FIO2 TO 40% EARLIER. O2 SAT 99%. KEPT RT LOWER EXT ELEVATED. REPOSITION HIM Q2H, KEPT HIM DRY AND CLEAN. ALL NEEDS ATTENDED. SIDE RAILS UP X 3 AND CALL LIGHT WITHIN REACH. WILL ENDORSE TO DAY SHIFT NURSE FOR CONTINUE TO CARE.
--- NOTE | 2017-06-13 07:30 | NUR ---
ICU/RN: Pt received in bed, intubated, slightly sedated, moving upper and lower extremities, grimacing and reaching for tube. Pt oriented to unit, responds to name, follows simple commands, able to move RLE, able to nod, shake head to yes/no questions. Diprivan titrated to comfort per protocol. Pt tolerating current vent settings, breathing even and unlabored. FC draining well to gravity. Alarm sounds audible. Will cont to monitor pt.
--- NOTE | 2017-06-13 07:46 | NUR ---
PT. RECEIVED ON VENT SUPPORT VIA ET TUBE SIZE 7.5 SECURED @ 26CM [id number]. VENT PARAMETERS BELLOW ORDER: AC 14 VT 550 FIO2 40% PEEP +5 B/S CLEAR BILATERAL, SXN SMALL AMNT CLEAR/WATERY SECRETIONS. VENT IS PLUGGED INTO RED OUTLET WITH ALARMS ON AND FUNCTIONING. VICTORINOG @ BEDSIDE. Addendum: 06/13/17 at 1104 by FELA DUNN RT Amended: Links added.
--- NOTE | 2017-06-13 07:59 | NUR ---
WOUND CARE CONSULT: PT IS INTUBATED AND IMMOBILE. PT FOLLOWED BY DR MARTIN FOR RT FOOT WOUND. RT FOOT DRESSING INTACT, DRY AND LEFT IN PLACE. DEFER TO PODIATRY FOR RT LOWER EXTREMITY. LEFT AK STUMP INTACT. SKIN IS INTACT WITH SOME SCARRING TO SACRUM AND LOWER BUTTOCKS, SCROTAL AREA. PT IS INCONTINENT OF STOOL. ALL SKIN PROTECTION MEASURES IN PLACE AND DISCUSSED WITH NURSING STAFF. [facility] BED WITH ETS AIR TO BE PLACED. WILL SEE PRN. WIGGINS IN AGREEMENT WITH PLAN OF CARE. Addendum: 06/13/17 at 0801 by LU LUZ WNDNU Amended: Links added.
[2017-06-13] MEDS: LEVOTHYROXINE SODIUM 100 MCG TABLET PO SCH (08:28)
[2017-06-13] MEDS ORDERED: Z GUARD REMEDY 2 OZ OINT TP PRN (08:30)
[2017-06-13] MEDS: LACTOBACILLUS RHAMNOSUS GG 1 EACH CAP.SPRINK PO SCH ×2 (08:36→16:16)
[2017-06-13] MEDS: CALCIUM CARB 600MG /VIT D 1 EACH TABLET PO SCH (08:36)
[2017-06-13] MEDS: ASCORBIC ACID 500 MG TABLET PO SCH (08:37)
[2017-06-13] MEDS: DOCUSATE SODIUM 100 MG CAPSULE PO SCH ×2 (08:37→16:16)
[2017-06-13] MEDS: DULOXETINE HCL 30 MG CAPSULE.DR PO SCH (08:37)
[2017-06-13] MEDS: ASPIRIN EC 81 MG TABLET.DR PO SCH (08:37)
[2017-06-13] MEDS: METOLAZONE 2.5 MG TABLET PO SCH (08:37)
[2017-06-13] MEDS: ZINC SULFATE 220 MG CAPSULE PO SCH (08:37)
[2017-06-13] MEDS: MULTIVIT, IRON, MIN NO. 8, FA 1 TAB PO SCH (08:37)
[2017-06-13] MEDS: FERROUS SULFATE (325 MG) 325 MG/TAB TABLET PO SCH ×2 (08:37→16:16)
[2017-06-13] MEDS: SPIRONOLACTONE 25 MG TABLET PO SCH (08:37)
[2017-06-13] MEDS: DRONEDARONE HYDROCHLORIDE 400 MG TABLET PO SCH ×2 (08:38→16:16)
[2017-06-13] MEDS: INSULIN GLARGINE, 100 UNIT/ML CARTRIDGE SQ SCH (08:38)
[2017-06-13] MEDS: Z GUARD REMEDY 2 OZ OINT TP SCH (08:38)
[2017-06-13] MEDS: CARVEDILOL 6.25 MG TABLET PO SCH (08:39)
[2017-06-13] MEDS: LOSARTAN POTASSIUM 25 MG TABLET PO SCH (08:39)
--- NOTE | 2017-06-13 08:45 | NUR ---
ICU/RN: Dr Finney rounds; updated on pt status, informed of T-max 100.1, neuro status, abn labs. New orders noted and carried out.
[2017-06-13] MEDS: CLOPIDOGREL BISULFATE 75 MG TABLET PO SCH (08:55)
[2017-06-13] MEDS: HEPARIN SODIUM, PORCINE 5000 UNITS/1 ML VIAL SQ SCH ×2 (08:55→22:05)
[2017-06-13 09:44] LABS: ABG BASE EXCESS 10.9 mmol/L; ABG PCO2 44.6 mmHg (35.0-45.0); ABG PH 7.512 (7.350-7.450); ABG PO2 84.1 mmHg (75.0-100.0); AaDO2 149.8 mmHg; COHb 1.1 % (0.5-1.5); MetHb 0.4 % (0.0-1.5); O2Hb 94.6 % (94.0-97.0); PEEP,BG 5 cm H2O; SITE, ABG Right Brachial; VT, ABG 550 mL
--- NOTE | 2017-06-13 09:50 | NUR ---
VENT ROCKY MERCER: VT 500ML Addendum: 06/13/17 at 0950 by FELA DUNN RT Amended: Links added.
[2017-06-13] MEDS ORDERED: POTASSIUM CHLORIDE 20 MEQ POWDER PACKET NG SCH (10:00)
--- NOTE | 2017-06-13 10:30 | NUR ---
ICU/RN: AM care, bed bath, wound care rendered, pt tolerated well. Placed on Barimaxx mattress with no incident.
[2017-06-13] MEDS: PANTOPRAZOLE 40 MG VIAL IV SCH (12:04)
--- NOTE | 2017-06-13 13:30 | NUR ---
ICU/RN: Danya Arauz, GYROSCOPIC INSTRUMENT MECHANIC at bedside, updated on pt status. ABN labs, output, neuro status, plan for weaning trial tomorrow dw GYROSCOPIC INSTRUMENT MECHANIC. Per GYROSCOPIC INSTRUMENT MECHANIC hold off TF and reevaluate need for TF tomorrow, cont current tx.
--- NOTE | 2017-06-13 16:00 | NUR ---
ICU/RN: Turned and repositioned for comfort; pt requires frequent oral care and suctioning.
--- NOTE | 2017-06-13 19:30 | NUR ---
REPORT GOTTEN ON PT.PT RESTING QUIETLY VIA BIPAP.
[2017-06-13] MEDS: SIMVASTATIN 20 MG TABLET PO SCH (21:56)
[2017-06-13] MEDS: TAMSULOSIN 0.4 MG CAP.SR.24H PO SCH (21:56)
[2017-06-13] MEDS: ATORVASTATIN 40 MG TABLET PO SCH (21:56)
[2017-06-14] VITALS (39 sets, daily range): BP systolic 104–135; BP diastolic 42–78
[2017-06-14] MEDS: BLOOD SUGAR DIAGNOSTIC 1 EACH STRIP IN SCH ×4 (00:59→17:22)
[2017-06-14] MEDS: PROPOFOL 100 ML IV PRN ×3 (01:06→10:03)
[2017-06-14] MEDS: ALBUTEROL HALF STRENGTH 1.25 MG/3 ML VIAL.NEB NEB SCH ×4 (02:00→20:09)
[2017-06-14] MEDS: IPRATROPIUM NEB FS 0.5 MG/2.5 ML AMPUL.NEB NEB SCH ×4 (02:00→20:09)
[2017-06-14 04:56] LABS: BASOPHILS % (AUTO) 0.1 % (0.0-2.0); EOSINOPHILS % (AUTO) 0.7 % (0.0-6.0); HEMATOCRIT 26 % (39-51); HEMOGLOBIN 8.8 g/dL (13.5-17.5); LYMPHOCYTES # (AUTO) 1.4 /CMM (0.8-4.8); MEAN CORPUSCULAR HGB CONC 33 g/dl (31.0-36.0); MEAN CORPUSCULAR VOLUME 79 fL (80-96); MONOCYTES # (AUTO) 0.6 /CMM (0.1-1.30); MONOCYTES % (AUTO) 8.1 % (2.0-12.0); NEUTROPHILS # (AUTO) 5.8 /CMM (1.8-8.9); NEUTROPHILS % (AUTO) 74.1 % (43.0-81.0); PLATELET COUNT (AUTO) 270 /CMM (150-450); RDW COEFFICIENT OF VARIATION 20.6 (11.5-15.0); RED BLOOD CELL COUNT(AUTO) 3.35 MIL/uL (4.5-6.0); WHITE BLOOD COUNT (AUTO) 7.9 K/uL (4.3-11.0)
[2017-06-14] MEDS: CEFAZOLIN 2 GM in IV NS 0.9% 50 ML IV SCH ×3 (04:56→21:12)
[2017-06-14 05:15] LABS: ALANINE AMINOTRANSFERASE 7 U/L (12-78); ALKALINE PHOSPHATASE 174 U/L (46-116); ASPARTATE AMINOTRANSFERASE 12 U/L (15-37); BILIRUBIN,TOTAL 0.4 mg/dL (0.2-1.0); CARBON DIOXIDE 36 mmol/L (21-32); CHLORIDE 105 mmol/L (98-107); CREATININE 1.1 mg/dL (0.6-1.3); GLUCOSE 85 mg/dL (74-106); MAGNESIUM 2.1 mg/dL (1.8-2.4); PHOSPHORUS 3.2 mg/dL (2.5-4.9); POTASSIUM 3.2 mmol/L (3.5-5.1); SODIUM SERUM 143 mmol/L (136-145); TOTAL PROTEIN, SERUM 6.8 g/dL (6.4-8.2); UREA NITROGEN, BLOOD 17 mg/dL (7-18)
--- NOTE | 2017-06-14 06:35 | NUR ---
Received pt on mechanical vent. Pt trach is secure. Vent is plugged into a red outlet, alarms are set and audible, and BVM is at bedside. Addendum: 06/14/17 at 0635 by JAYCOB KULKARNI RT Amended: Links added.
[2017-06-14] MEDS: LEVOTHYROXINE SODIUM 100 MCG TABLET PO SCH (06:37)
--- NOTE | 2017-06-14 07:30 | NUR ---
ICU/RN AM NOTES RECEIVED PT IN BED, INTUBATED, AC 14, TV 500, FIO2 40, PEEP 5, ETT 7.5/26, SEDATED, BREATHING EVEN AND UNLABORED, V PACING HR 77 ON MONITOR, SEDATED, ON DIPRIVAN AT 32 MCG/MIN TO RT WRIST G18, LAC G18 FLUSHES WELL, BOTH SITES CLEAR. NGT #16 CLAMPED, RT NARES.FC DRAINING WELL TO GRAVITY. SEE NURSING FLOWSHEET FOR SKIN ISSUES. SOFT WRIST RESTRAINT BILATERAL, RELEASED AND CHECKED FOR CIRCULATION [EVERY 2 HOURS], ON [facility] BED, ALARM SOUNDS AUDIBLE. WILL CONTINUE TO MONITOR. PATIENT TO BE WEANED FROM VENTILATOR SUPPORT TODAY. Addendum: 06/14/17 at 0843 by SHAN HANSON RN ADDENDUM: PT WITH LEFT AKA.
--- NOTE | 2017-06-14 08:00 | NUR ---
Intubated pt received on mechanical vent. 7.5 ETT secured at 26cm@ the lip. Vent is plugged into a red outlet, alarms are set and audible, and BVM is at bedside. Addendum: 06/14/17 at 0801 by NANCY JEAN RT Amended: Links added.
--- NOTE | 2017-06-14 08:00 | NUR ---
ICU NOTES DIPRIVAN DECREASED TO 16 MCG/KG/MIN PER DR. MERCER FOR POSSIBLE EXTUBATION THIS AFTERNOON
--- NOTE | 2017-06-14 08:17 | NUR ---
ICU NOTES SIMV 4
[2017-06-14] MEDS ORDERED: DEXAMETHASONE SOD PHOSPHATE 10 MG/ML VIAL IV ONE (09:00)
[2017-06-14] MEDS: INSULIN GLARGINE, 100 UNIT/ML CARTRIDGE SQ SCH (09:00)
--- NOTE | 2017-06-14 09:00 | NUR ---
GUEST SERVICES OFFICER NOTES DIPRIVAN DRIP DECREASED TO 10 MCG/KG/MIN.
[2017-06-14] MEDS: DRONEDARONE HYDROCHLORIDE 400 MG TABLET PO SCH ×2 (09:30→17:21)
[2017-06-14] MEDS: MULTIVIT, IRON, MIN NO. 8, FA 1 TAB PO SCH (09:30)
[2017-06-14] MEDS: DOCUSATE SODIUM 100 MG CAPSULE PO SCH ×2 (09:30→17:21)
[2017-06-14] MEDS: FERROUS SULFATE (325 MG) 325 MG/TAB TABLET PO SCH ×2 (09:30→17:21)
--- NOTE | 2017-06-14 09:30 | NUR ---
WATERPROOFER HELPER NOTES DUE MEDS GIVEN
[2017-06-14] MEDS: CLOPIDOGREL BISULFATE 75 MG TABLET PO SCH (09:31)
[2017-06-14] MEDS: DULOXETINE HCL 30 MG CAPSULE.DR PO SCH (09:31)
[2017-06-14] MEDS: ASPIRIN EC 81 MG TABLET.DR PO SCH (09:31)
[2017-06-14] MEDS: ASCORBIC ACID 500 MG TABLET PO SCH (09:31)
[2017-06-14] MEDS: LACTOBACILLUS RHAMNOSUS GG 1 EACH CAP.SPRINK PO SCH ×2 (09:31→17:21)
[2017-06-14] MEDS: ZINC SULFATE 220 MG CAPSULE PO SCH (09:31)
[2017-06-14] MEDS: CALCIUM CARB 600MG /VIT D 1 EACH TABLET PO SCH (09:31)
[2017-06-14] MEDS: METOLAZONE 2.5 MG TABLET PO SCH (09:31)
[2017-06-14 09:32] LABS: ABG OXYGEN SATURATION 96.6 % (92.0-98.5); ABG PCO2 46.6 mmHg (35.0-45.0); ABG PH 7.487 (7.350-7.450); ABG PO2 93.1 mmHg (75.0-100.0); AaDO2 138.5 mmHg; MetHb 0.6 % (0.0-1.5); O2Hb 95.1 % (94.0-97.0); SITE, ABG Right Brachial; VENT MODE, BG SIMV 4 500 PS12 40% +5
[2017-06-14] MEDS: HEPARIN SODIUM, PORCINE 5000 UNITS/1 ML VIAL SQ SCH ×2 (09:32→21:43)
[2017-06-14] MEDS: Z GUARD REMEDY 2 OZ OINT TP SCH (09:41)
[2017-06-14] MEDS: DAKINS QUARTER STRENGTH (0.125%) 480 ML BOTTLE TOP SCH (09:42)
[2017-06-14] MEDS ORDERED: DC PROPOFOL WHEN EXTUBATED XX PRN (10:00)
[2017-06-14] MEDS ORDERED: POTASSIUM CHLORIDE 20 MEQ POWDER PACKET GT SCH (10:00)
[2017-06-14] MEDS ORDERED: BUMETANIDE INJ 8 MG in IV NS 0.9% 48 ML IV ONE (10:00)
--- NOTE | 2017-06-14 12:10 | NUR ---
CLERK ANALYST NOTES DIPRIVAN DRIP DECREASED TO 5 MCG/KG/MIN.
[2017-06-14] MEDS: PANTOPRAZOLE 40 MG VIAL IV SCH (12:13)
--- NOTE | 2017-06-14 12:13 | NUR ---
PEER FINANCIAL COUNSELOR NOTES ACCUCHECK DONE. BS 16 MG/DL. NO INSULIN COVERAGE GIVEN. PT NPO Addendum: 06/14/17 at 1742 by SHAN HANSON RN CORRECTION: BS 106 MG/DL.
--- NOTE | 2017-06-14 13:00 | NUR ---
ROLLER SHOP UTILITY WORKER NOTES FIONA ZALDIVAR HELD.
[2017-06-14 14:10] LABS: ABG BASE EXCESS 12.9 mmol/L; ABG OXYGEN SATURATION 95.9 % (92.0-98.5); ABG PCO2 50.3 mmHg (35.0-45.0); ABG PH 7.494 (7.350-7.450); ABG PO2 82.9 mmHg (75.0-100.0); AaDO2 144.5 mmHg; MetHb 0.7 % (0.0-1.5); O2Hb 94.3 % (94.0-97.0); SITE, ABG Left Radial; VENT MODE, BG SIMV 4 500 PS 12 40% +5
--- NOTE | 2017-06-14 14:12 | NUR ---
Pt extubated per MD order and placed on NC. Pt showing no signs of respiratory distress at this time. Addendum: 06/14/17 at 1514 by NANCY JEAN RT Amended: Links added.
--- NOTE | 2017-06-14 14:17 | NUR ---
CARPET WEAVER NOTES PATIENT EXTUBATED. PATIENT DOING WELL. NOT SOB, NO DISTRESS DIPRIVAN DRIP DISCONTINUED. FOR BEDSIDE SWALLOW EVAL.
--- NOTE | 2017-06-14 15:11 | NUR ---
SOUND MIXER NOTES ABLE TO TOLERATE THIN LIQUID AND APPLE SAUCE. AT BEDSIDE. PER DR. MERCER MAY GO AHEAD WITH SOFT DIET.
--- NOTE | 2017-06-14 15:19 | NUR ---
PILL MACHINE OPERATOR NOTES PATIENT ALERT AND FULLY AWAKE. AT BEDSIDE. MEDICAL RESTRAINT DISCONTINUED. ORDERED FOR CCHO/2GM NA SOFT DIET.
[2017-06-14 15:34] LABS: ABG BASE EXCESS 11.8 mmol/L; ABG PCO2 48.9 mmHg (35.0-45.0); ABG PH 7.492 (7.350-7.450); ABG PO2 70.5 mmHg (75.0-100.0); AaDO2 129.5 mmHg; COHb 1.2 % (0.5-1.5); MetHb 0.5 % (0.0-1.5); O2Hb 92.4 % (94.0-97.0); SITE, ABG Left Radial; VENT MODE, BG Nasal Cannula
--- NOTE | 2017-06-14 17:30 | NUR ---
PROOF CARRIER NOTES ACCUCHECK DONE. BS 135 MG/DL. NO INSULIN COVERAGE GIVEN PER 'S REQUEST, TO DO IT NEXT SHIFT.
--- NOTE | 2017-06-14 18:46 | NUR ---
ICU/RN CLOSING NOTES PT IN BED, RESTING COMFORTABLY, S/P EXTUBATION 06/14/17 1417, AO X 3-4. ON 4L O2 NC, BREATHING EVEN AND UNLABORED, V PACING HR 84 ON MONITOR, LAC G18 WITH NS A TKO, RT WRIST G18, FLUSHES WELL, BOTH SITES CLEAR. FC DRAINING WELL TO GRAVITY TOTAL 6850 ML OUTPUT. LEFT AKA. ON BARIMAXX BED, ALARM SOUNDS AUDIBLE. PERFORMED PRESCRIBED WOUND TREATMENT EARLIER. PM CARE DONE. INDEPENDENT OF BED MOBILITY. ALL NEEDS MET. NO OTHER SIGNIFICANT CHANGE IN CONDITION. CALL LIGHT WITHIN REACH. SAFETY MEASURES IN PLACE. HOB ELEVATED. WILL ENDORSE TO NEXT SHIFT FOR CRYSTAL.
[2017-06-14] MEDS: TAMSULOSIN 0.4 MG CAP.SR.24H PO SCH (21:44)
[2017-06-14] MEDS: SIMVASTATIN 20 MG TABLET PO SCH (21:44)
[2017-06-14] MEDS: ATORVASTATIN 40 MG TABLET PO SCH (21:44)
--- NOTE | 2017-06-14 23:18 | NUR ---
PT A/A/O TIMES 4 NO SOB AFTER EXTUBATION. VSS NO DISTRESS NOTED OR VOICED
[2017-06-15] VITALS (19 sets, daily range): BP systolic 103–115; BP diastolic 48–71
--- NOTE | 2017-06-15 | NUR ---
STARCH MANGLE TENDER NOTE PT RECEIVED AWAKE AND ALERT IN BED. NO ACUTE DISTRESS NOTED. ON 4L OF O2 VIA NC AND SATURATING 99%. BREATHING EVEN AND UNLABORED. NO C/O PAIN OR DISCOMFORT NOTED. HOB ELEVATED. CALL LIGHT WITHIN REACH. WILL CONTINUE TO MONITOR.
[2017-06-15] MEDS: BLOOD SUGAR DIAGNOSTIC 1 EACH STRIP IN SCH ×5 (00:45→23:50)
[2017-06-15] MEDS: INSULIN REGULAR, HUMAN 100 UNIT/ML 3 ML VIAL SQ PRN ×5 (00:50→23:50)
[2017-06-15] MEDS: ALBUTEROL HALF STRENGTH 1.25 MG/3 ML VIAL.NEB NEB SCH ×4 (01:46→19:56)
[2017-06-15] MEDS: IPRATROPIUM NEB FS 0.5 MG/2.5 ML AMPUL.NEB NEB SCH ×4 (01:46→19:56)
[2017-06-15 04:54] LABS: BASOPHILS % (AUTO) 0.1 % (0.0-2.0); EOSINOPHILS % (AUTO) 0.2 % (0.0-6.0); HEMATOCRIT 29 % (39-51); HEMOGLOBIN 9.5 g/dL (13.5-17.5); LYMPHOCYTES # (AUTO) 0.8 /CMM (0.8-4.8); LYMPHOCYTES % (AUTO) 8.5 % (20.0-44.0); MEAN CORPUSCULAR HGB CONC 33 g/dl (31.0-36.0); MEAN CORPUSCULAR VOLUME 79 fL (80-96); MONOCYTES # (AUTO) 0.5 /CMM (0.1-1.30); MONOCYTES % (AUTO) 5.6 % (2.0-12.0); NEUTROPHILS # (AUTO) 8.1 /CMM (1.8-8.9); NEUTROPHILS % (AUTO) 85.6 % (43.0-81.0); PLATELET COUNT (AUTO) 284 /CMM (150-450); RDW COEFFICIENT OF VARIATION 19.7 (11.5-15.0); RED BLOOD CELL COUNT(AUTO) 3.61 MIL/uL (4.5-6.0); WHITE BLOOD COUNT (AUTO) 9.4 K/uL (4.3-11.0)
[2017-06-15 05:06] LABS: ALANINE AMINOTRANSFERASE 10 U/L (12-78); ALBUMIN 2.3 g/dL (3.4-5.0); ALKALINE PHOSPHATASE 183 U/L (46-116); ASPARTATE AMINOTRANSFERASE 16 U/L (15-37); BILIRUBIN,TOTAL 0.4 mg/dL (0.2-1.0); CALCIUM, SERUM 8.3 mg/dL (8.5-10.1); CHLORIDE 99 mmol/L (98-107); CREATININE 1.5 mg/dL (0.6-1.3); GLUCOSE 219 mg/dL (74-106); MAGNESIUM 2.2 mg/dL (1.8-2.4); PHOSPHORUS 4.5 mg/dL (2.5-4.9); POTASSIUM 3.8 mmol/L (3.5-5.1); SODIUM SERUM 140 mmol/L (136-145); TOTAL PROTEIN, SERUM 7.6 g/dL (6.4-8.2); UREA NITROGEN, BLOOD 21 mg/dL (7-18)
[2017-06-15] MEDS: CEFAZOLIN 2 GM in IV NS 0.9% 50 ML IV SCH ×2 (05:15→13:16)
[2017-06-15 05:20] LABS: CARBON DIOXIDE 41 mmol/L (21-32)
--- NOTE | 2017-06-15 06:50 | NUR ---
SKEIN WINDING OPERATOR CLOSING NOTE PT REMAINED STABLE DURING SHIFT. NO ACUTE DISTRESS NOTED. TITRATED TO 2L OF O2 VIA NC AND TOLERATING WELL AT 98%. HOB ELEVATED. ALL NEEDS ATTENDED TO PROMPTLY. KEPT CLEAN AND DRY. WILL ENDORSE TO NEXT SHIFT FOR CONTINUITY OF CARE.
[2017-06-15] MEDS ORDERED: acetaZOLAMIDE SODIUM 500 MG/VIAL VIAL IV ONE (07:30)
[2017-06-15] MEDS: LEVOTHYROXINE SODIUM 100 MCG TABLET PO SCH (08:52)
[2017-06-15] MEDS: DOCUSATE SODIUM 100 MG CAPSULE PO SCH ×2 (09:06→17:46)
[2017-06-15] MEDS: CALCIUM CARB 600MG /VIT D 1 EACH TABLET PO SCH (09:06)
[2017-06-15] MEDS: FERROUS SULFATE (325 MG) 325 MG/TAB TABLET PO SCH ×2 (09:06→17:46)
[2017-06-15] MEDS: MULTIVIT, IRON, MIN NO. 8, FA 1 TAB PO SCH (09:06)
[2017-06-15] MEDS: CLOPIDOGREL BISULFATE 75 MG TABLET PO SCH (09:06)
[2017-06-15] MEDS: ASPIRIN EC 81 MG TABLET.DR PO SCH (09:06)
[2017-06-15] MEDS: DULOXETINE HCL 30 MG CAPSULE.DR PO SCH (09:06)
[2017-06-15] MEDS: LACTOBACILLUS RHAMNOSUS GG 1 EACH CAP.SPRINK PO SCH ×2 (09:06→17:46)
[2017-06-15] MEDS: DRONEDARONE HYDROCHLORIDE 400 MG TABLET PO SCH ×2 (09:06→17:46)
[2017-06-15] MEDS: ASCORBIC ACID 500 MG TABLET PO SCH (09:06)
[2017-06-15] MEDS: HEPARIN SODIUM, PORCINE 5000 UNITS/1 ML VIAL SQ SCH ×2 (09:08→21:25)
[2017-06-15] MEDS: DAKINS QUARTER STRENGTH (0.125%) 480 ML BOTTLE TOP SCH (09:09)
[2017-06-15] MEDS: Z GUARD REMEDY 2 OZ OINT TP SCH (09:10)
[2017-06-15] MEDS: INSULIN GLARGINE, 100 UNIT/ML CARTRIDGE SQ SCH (09:13)
[2017-06-15] MEDS: ZINC SULFATE 220 MG CAPSULE PO SCH (09:13)
[2017-06-15] MEDS: PANTOPRAZOLE 40 MG VIAL IV SCH (13:16)
[2017-06-15] MEDS ORDERED: FEE PK DOSING 1 MIN EA MC ONE (14:47)
--- NOTE | 2017-06-15 16:30 | NUR ---
RN NOTE PT TRANSFERRED TO GO FROM ICU, PT STABLE, DENIES PAIN, NO SOB NOTED. WILL MONITOR.
[2017-06-15] MEDS: GENTAMICIN 80 MG in IV NS 0.9% 50 ML IV SCH (17:48)
--- NOTE | 2017-06-15 20:05 | NUR ---
GO RN NOTES RECEIVED PTS AWAKE AND RESPONSIVE , ON TELE SR AND BBB ON THE MONITOR NO SOB NO DISTRESS ON THE MONITOR , V/S STABLE AFEBRILE , RIGHT LEG ELEVATED ON PILLOW . DUE MEDS GIVEN GIVEN ORDERED , ALL NEEDS ATTENDED TOO CALL LIGHT WITHIN REACH KEPT PTS CLEAN DRY AND COMFORTABLE, WILL CONTINUE TO MONITOR.
[2017-06-15] MEDS: SIMVASTATIN 20 MG TABLET PO SCH (21:24)
[2017-06-15] MEDS: TAMSULOSIN 0.4 MG CAP.SR.24H PO SCH (21:24)
[2017-06-15] MEDS: ATORVASTATIN 40 MG TABLET PO SCH (21:24)
[2017-06-16] VITALS: BP 93/56
--- NOTE | 2017-06-16 | NUR ---
GO RN NOTES BLOOD SUGAR FOR 12MN IS 126 MG/DL NO COVERAGE GIVEN PER SLIDING SCALE, PTS ON PO DIET WILL CHECKED BLOOD SUGAR AGAIN IN AM
[2017-06-16] MEDS: IPRATROPIUM NEB FS 0.5 MG/2.5 ML AMPUL.NEB NEB SCH ×4 (01:22→20:05)
[2017-06-16] MEDS: ALBUTEROL HALF STRENGTH 1.25 MG/3 ML VIAL.NEB NEB SCH ×2 (01:22→09:15)
[2017-06-16 04:00] VITALS: BP 99/61
[2017-06-16] MEDS: GENTAMICIN 80 MG in IV NS 0.9% 50 ML IV SCH ×2 (04:00→16:25)
--- NOTE | 2017-06-16 06:00 | NUR ---
GO RN NOTES BLOOD SUGAR AT 6AM IS 141MG/DL -2 UNITS OF REGULAR INSULIN GIVEN ORDERED , WILL ENDORSE TO RN DAY SHIFT FOR CONTINUITY OF CARE.
[2017-06-16] MEDS: BLOOD SUGAR DIAGNOSTIC 1 EACH STRIP IN SCH ×3 (06:06→17:50)
[2017-06-16] MEDS: INSULIN REGULAR, HUMAN 100 UNIT/ML 3 ML VIAL SQ PRN ×3 (06:06→17:50)
[2017-06-16 06:29] LABS: EOSINOPHILS % (AUTO) 1.8 % (0.0-6.0); HEMATOCRIT 29 % (39-51); HEMOGLOBIN 9.2 g/dL (13.5-17.5); LYMPHOCYTES # (AUTO) 2.2 /CMM (0.8-4.8); LYMPHOCYTES % (AUTO) 26.3 % (20.0-44.0); MEAN CORPUSCULAR HGB CONC 32 g/dl (31.0-36.0); MEAN CORPUSCULAR VOLUME 79 fL (80-96); MONOCYTES # (AUTO) 0.7 /CMM (0.1-1.30); MONOCYTES % (AUTO) 8.3 % (2.0-12.0); NEUTROPHILS # (AUTO) 5.3 /CMM (1.8-8.9); NEUTROPHILS % (AUTO) 63.6 % (43.0-81.0); PLATELET COUNT (AUTO) 277 /CMM (150-450); RDW COEFFICIENT OF VARIATION 21.1 (11.5-15.0); RED BLOOD CELL COUNT(AUTO) 3.68 MIL/uL (4.5-6.0); WHITE BLOOD COUNT (AUTO) 8.3 K/uL (4.3-11.0)
[2017-06-16 06:32] LABS: ALANINE AMINOTRANSFERASE 14 U/L (12-78); ALBUMIN 2.3 g/dL (3.4-5.0); ALKALINE PHOSPHATASE 166 U/L (46-116); ASPARTATE AMINOTRANSFERASE 21 U/L (15-37); BILIRUBIN,TOTAL 0.4 mg/dL (0.2-1.0); CALCIUM, SERUM 8.2 mg/dL (8.5-10.1); CARBON DIOXIDE 34 mmol/L (21-32); CHLORIDE 100 mmol/L (98-107); CREATININE 1.5 mg/dL (0.6-1.3); GLUCOSE 138 mg/dL (74-106); MAGNESIUM 2.1 mg/dL (1.8-2.4); PHOSPHORUS 3.1 mg/dL (2.5-4.9); POTASSIUM 3.5 mmol/L (3.5-5.1); SODIUM SERUM 139 mmol/L (136-145); TOTAL PROTEIN, SERUM 7.6 g/dL (6.4-8.2); UREA NITROGEN, BLOOD 21 mg/dL (7-18)
--- NOTE | 2017-06-16 07:25 | NUR ---
GO RN NOTES RECEIVED PTS ON BED, A/Ox3, ON 2L O2 N/C , RESPIRATION EVEN AND UNLABORED, NO SOB NOTED, ON TELE SR, WITH BBB, ROTH DRAINING TO GRAVITY WELL, RIGHT LEG ELEVATED ON PILLOW , CALL LIGHT WITHIN REACH REACH, BED LOCKED AND IN LOWEST POSITION , WILL CONTINUE TO MONITOR.
[2017-06-16 08:00] VITALS: BP 103/51
[2017-06-16] MEDS: DAKINS QUARTER STRENGTH (0.125%) 480 ML BOTTLE TOP SCH (08:08)
[2017-06-16] MEDS: Z GUARD REMEDY 2 OZ OINT TP SCH (08:09)
[2017-06-16] MEDS: ASPIRIN EC 81 MG TABLET.DR PO SCH (08:10)
[2017-06-16] MEDS: ASCORBIC ACID 500 MG TABLET PO SCH (08:10)
[2017-06-16] MEDS: CLOPIDOGREL BISULFATE 75 MG TABLET PO SCH (08:10)
[2017-06-16] MEDS: FERROUS SULFATE (325 MG) 325 MG/TAB TABLET PO SCH ×2 (08:10→16:25)
[2017-06-16] MEDS: MULTIVIT, IRON, MIN NO. 8, FA 1 TAB PO SCH (08:10)
[2017-06-16] MEDS: ZINC SULFATE 220 MG CAPSULE PO SCH (08:10)
[2017-06-16] MEDS: DOCUSATE SODIUM 100 MG CAPSULE PO SCH ×2 (08:10→16:25)
[2017-06-16] MEDS: LEVOTHYROXINE SODIUM 100 MCG TABLET PO SCH (08:11)
[2017-06-16] MEDS: CALCIUM CARB 600MG /VIT D 1 EACH TABLET PO SCH (08:11)
[2017-06-16] MEDS: DULOXETINE HCL 30 MG CAPSULE.DR PO SCH (08:11)
[2017-06-16] MEDS: DRONEDARONE HYDROCHLORIDE 400 MG TABLET PO SCH ×2 (08:11→16:25)
[2017-06-16] MEDS: LACTOBACILLUS RHAMNOSUS GG 1 EACH CAP.SPRINK PO SCH ×2 (08:11→16:25)
[2017-06-16] MEDS: HEPARIN SODIUM, PORCINE 5000 UNITS/1 ML VIAL SQ SCH ×2 (08:12→21:36)
[2017-06-16] MEDS: INSULIN GLARGINE, 100 UNIT/ML CARTRIDGE SQ SCH (08:15)
--- NOTE | 2017-06-16 09:56 | NUR ---
RN NOTES HR IN 140'S , BP 97/66 , PT SHAYNE ANY DISTRESS, CATAN SEPARATIONS SCIENTIST NOTIFED, ORDER RECEIVED 500 NS BOLUS IV , CONTINUE TO MONITOR .
[2017-06-16] MEDS ORDERED: IV NS 0.9% 500 ML IV ONE (10:30)
--- NOTE | 2017-06-16 10:30 | NUR ---
RN NOTES DR REYNA AT THE BEDSIDE SEEING THE PT , BP=98/66, HR STILL IN HIGH 140'S, ORDER RECIVED FOR 6MG ADENOSINE IV PUSH PER MD ORDER . CONTINUE TO MONITOR
[2017-06-16] MEDS ORDERED: ADENOSINE 6 MG/2 ML VIAL IVP STA ×3 (10:35→11:06)
--- NOTE | 2017-06-16 11:10 | NUR ---
RN NOTES HR STILL IN 140'S , BP=98/70, NEW ORDER RECEIVED FOR AMIO IV PER DR REYNA ORDER, CONTINUE TO MONITOR
[2017-06-16] MEDS ORDERED: AMIODARONE 150 MG in IV D5W 100 ML IV ONE (11:30)
[2017-06-16] MEDS ORDERED: AMIODARONE 900 MG in IV D5W 482 ML IV PRN (11:30)
--- NOTE | 2017-06-16 11:53 | NUR ---
RN NOTES AMIO BOLUS GIVEN , BP =99/70, HR IS IN 80'S AT THIS TIME, CONTINUE TO MONITOR.
[2017-06-16 12:00] VITALS: BP 97/67
[2017-06-16 16:00] VITALS: BP 111/64
--- NOTE | 2017-06-16 18:00 | NUR ---
RN NOTE PT STABLE , HR IN 80'S .SR , AMIODARONE GTT RUNNING AT 1MG/MIN VIA L AC IV SITE, PT SHAYNE ANY DISTRESS, SR UP x3, CALL LIGHT WIHIN EASY REACH, WILL ENDORSE TO APPLICATION SPEC NURSE FOR CRYSTAL .
[2017-06-16 20:00] VITALS: BP 114/74
--- NOTE | 2017-06-16 20:00 | NUR ---
GO RN NOTES RECIVED PTS ALERT AND RESPONSIVE , CONTINUE ON 2 LITERS OF O2 VIA NC ,NO SOB NO DISTRESS NOTED V/S STABLE AFEBRILE ON TELE SR AND BBB ON THE MONITOR.ALL NEEDS ATTENDED TOO CALL LIGHT WITH IN REACH . PTS REMAINS ON AMIODARONE AT 0.5MG /HR INFUSING WELL. PIV LINE INTACT AND PATENT , SAFETY MEASURES INPLACE , WILL CONTINUE TO MONITOR PTS .ALL MEDS GIVEN ORDERED.
[2017-06-16] MEDS: TAMSULOSIN 0.4 MG CAP.SR.24H PO SCH (21:35)
[2017-06-16] MEDS: ATORVASTATIN 40 MG TABLET PO SCH (21:35)
--- NOTE | 2017-06-16 23:29 | NUR ---
GO RN NOTES PTS WAS PLACE ON BIPAP IPAP -18 EPAP -10 RATE OF 12 WELL TOLERATED BY PTS, NO SOB NO DISTRESS NOTED AT THIS TIME.V/S STABLE AFEBRILE
[2017-06-17] VITALS (7 sets, daily range): BP systolic 96–126; BP diastolic 57–70
[2017-06-17] MEDS: INSULIN REGULAR, HUMAN 100 UNIT/ML 3 ML VIAL SQ PRN ×4 (00:01→18:19)
[2017-06-17] MEDS: BLOOD SUGAR DIAGNOSTIC 1 EACH STRIP IN SCH ×4 (00:02→18:21)
--- NOTE | 2017-06-17 00:04 | NUR ---
GO RN NOTES BLOOD SUGAR FOR 12MN IS 120 NO INSULIN COVERAGE GIVEN PER SLIDING SCALE PTS ON PO DIET ,WILL CHECK BS AGAIN IN AM.
--- NOTE | 2017-06-17 00:30 | NUR ---
GO RN NOTES PTS REPUSED BIPAP , EXPLAIN R/B PTS STILL REFUSING , PUT PTS BACK TO NC AT 2LITERS OF 02 SATING 98% WILL TRY AGAIN TO OFFER BIPAP.NO SOB NO DISTRESS NOTED.
[2017-06-17] MEDS: IPRATROPIUM NEB FS 0.5 MG/2.5 ML AMPUL.NEB NEB SCH ×4 (01:28→19:32)
[2017-06-17] MEDS ORDERED: IV NS 0.9% 250 ML IV PRN (02:00)
--- NOTE | 2017-06-17 03:45 | NUR ---
GO RN NOTES PTS OFFERED BIPAP AND PTS AGREE WITH IT , PLACE PTS BACK TO BIPAP , WELL TOLERATED SATURATION OF 96-97 % NO SOB NO DISTRESS NOTED , DUE IV ATB GIVEN ORDERED , NO ASE NOTED.PTS CONTINUE ON AMIO DRIP AT 0.5 MG/16.6 CC/HR ON PROGRESS. HR OF 70S WILL CONTINUE TO MONITOR.
[2017-06-17] MEDS: GENTAMICIN 80 MG in IV NS 0.9% 50 ML IV SCH (03:50)
--- NOTE | 2017-06-17 05:10 | NUR ---
GO RN NOTES BLLOD SUGAR FOR 6AM IS 113MG/DL NO COVERAGE GIVEN PER SLIDING SCALE PTS ON PO DIET
--- NOTE | 2017-06-17 06:00 | NUR ---
hilary rn notes pts in bed a/ox3 bipap off changed to nc at 2liters well tolerated by pts .no sob no distress noted , remains on amiodrip at 0.5mg/16.6 ml/hr infusing well pts on tele [id number] sating 98% , v/s stable afebrile , will endorse to rn day shift for continuity of care.
[2017-06-17 07:25] LABS: BASOPHILS % (AUTO) 0.5 % (0.0-2.0); EOSINOPHILS % (AUTO) 3.3 % (0.0-6.0); HEMATOCRIT 28 % (39-51); HEMOGLOBIN 8.9 g/dL (13.5-17.5); LYMPHOCYTES # (AUTO) 1.9 /CMM (0.8-4.8); LYMPHOCYTES % (AUTO) 27.1 % (20.0-44.0); MEAN CORPUSCULAR HGB CONC 31 g/dl (31.0-36.0); MEAN CORPUSCULAR VOLUME 79 fL (80-96); MONOCYTES # (AUTO) 0.7 /CMM (0.1-1.30); MONOCYTES % (AUTO) 10.6 % (2.0-12.0); NEUTROPHILS % (AUTO) 58.5 % (43.0-81.0); PLATELET COUNT (AUTO) 288 /CMM (150-450); RDW COEFFICIENT OF VARIATION 20.9 (11.5-15.0); RED BLOOD CELL COUNT(AUTO) 3.59 MIL/uL (4.5-6.0); WHITE BLOOD COUNT (AUTO) 6.9 K/uL (4.3-11.0)
[2017-06-17 07:39] LABS: ALANINE AMINOTRANSFERASE 17 U/L (12-78); ALBUMIN 2.3 g/dL (3.4-5.0); ALKALINE PHOSPHATASE 154 U/L (46-116); ASPARTATE AMINOTRANSFERASE 25 U/L (15-37); BILIRUBIN,TOTAL 0.3 mg/dL (0.2-1.0); CALCIUM, SERUM 8.2 mg/dL (8.5-10.1); CARBON DIOXIDE 31 mmol/L (21-32); CHLORIDE 103 mmol/L (98-107); CREATININE 1.3 mg/dL (0.6-1.3); GLUCOSE 118 mg/dL (74-106); MAGNESIUM 2.1 mg/dL (1.8-2.4); PHOSPHORUS 2.8 mg/dL (2.5-4.9); POTASSIUM 3.6 mmol/L (3.5-5.1); SODIUM SERUM 140 mmol/L (136-145); TOTAL PROTEIN, SERUM 7.5 g/dL (6.4-8.2); UREA NITROGEN, BLOOD 21 mg/dL (7-18)
[2017-06-17] MEDS: Z GUARD REMEDY 2 OZ OINT TP SCH (09:29)
[2017-06-17] MEDS: LACTOBACILLUS RHAMNOSUS GG 1 EACH CAP.SPRINK PO SCH ×2 (09:36→16:32)
[2017-06-17] MEDS: FERROUS SULFATE (325 MG) 325 MG/TAB TABLET PO SCH ×2 (09:36→16:31)
[2017-06-17] MEDS: ZINC SULFATE 220 MG CAPSULE PO SCH (09:36)
[2017-06-17] MEDS: CALCIUM CARB 600MG /VIT D 1 EACH TABLET PO SCH (09:37)
[2017-06-17] MEDS: ASCORBIC ACID 500 MG TABLET PO SCH (09:37)
[2017-06-17] MEDS: DOCUSATE SODIUM 100 MG CAPSULE PO SCH ×2 (09:37→16:31)
[2017-06-17] MEDS: LEVOTHYROXINE SODIUM 100 MCG TABLET PO SCH (09:37)
[2017-06-17] MEDS: MULTIVIT, IRON, MIN NO. 8, FA 1 TAB PO SCH (09:37)
[2017-06-17] MEDS: CLOPIDOGREL BISULFATE 75 MG TABLET PO SCH (09:37)
[2017-06-17] MEDS: DULOXETINE HCL 30 MG CAPSULE.DR PO SCH (09:37)
[2017-06-17] MEDS: INSULIN GLARGINE, 100 UNIT/ML CARTRIDGE SQ SCH (09:38)
[2017-06-17] MEDS: DAKINS QUARTER STRENGTH (0.125%) 480 ML BOTTLE TOP SCH (09:39)
[2017-06-17] MEDS: AMIODARONE HCL 200 MG TABLET PO SCH ×3 (10:42→16:33)
[2017-06-17] MEDS: RIVAROXABAN 15 MG TABLET PO SCH (16:32)
[2017-06-17] MEDS: CEFTRIAXONE 1 G in IV NS 0.9% 50 ML IV SCH (16:34)
[2017-06-17] MEDS: ACETAMINOPHEN 325 MG TABLET PO PRN (19:40)
--- NOTE | 2017-06-17 20:00 | NUR ---
RN GO - NOTES - RECEIVED PT ALERT AND RESPONSIVE, ON 2 LITERS OF O2 VIA NC, NO SOB NO DISTRESS NOTED V/S STABLE AFEBRILE ON TELE SR AND BBB ON THE MONITOR. ALL NEEDS ATTENDED TOO CALL LIGHT WITH IN REACH. PIV LINE INTACT AND PATENT , SAFETY MEASURES IN PLACE , WILL CONTINUE TO MONITOR PTS .ALL MEDS GIVEN ORDERED.
[2017-06-17] MEDS: AMPICILLIN 1 GM in IV NS 0.9% 50 ML IV SCH (20:21)
[2017-06-17] MEDS: ATORVASTATIN 40 MG TABLET PO SCH (21:14)
[2017-06-17] MEDS: TAMSULOSIN 0.4 MG CAP.SR.24H PO SCH (21:14)
--- NOTE | 2017-06-17 23:00 | NUR ---
PT PLACED ON BIPAP RATE 12 06/12 FI02 25%, TOLERATING WELL, PT IS ASLEEP. WILL CONTINUE TO MONITOR
[2017-06-18] VITALS: BP 137/74
[2017-06-18] MEDS: BLOOD SUGAR DIAGNOSTIC 1 EACH STRIP IN SCH ×5 (00:09→23:54)
[2017-06-18] MEDS: INSULIN REGULAR, HUMAN 100 UNIT/ML 3 ML VIAL SQ PRN ×4 (00:19→18:08)
[2017-06-18] MEDS: IPRATROPIUM NEB FS 0.5 MG/2.5 ML AMPUL.NEB NEB SCH ×4 (01:30→19:59)
[2017-06-18 04:00] VITALS: BP 119/47
--- NOTE | 2017-06-18 04:30 | NUR ---
PT REFUSED BIPAP, 02SAT >96% , NO SOB, WILL CONTINUE TO MONITOR
[2017-06-18] MEDS: AMPICILLIN 1 GM in IV NS 0.9% 50 ML IV SCH ×3 (04:58→21:19)
[2017-06-18 07:05] LABS: CALCIUM, SERUM 7.8 mg/dL (8.5-10.1); CARBON DIOXIDE 30 mmol/L (21-32); CHLORIDE 103 mmol/L (98-107); CREATININE 1.2 mg/dL (0.6-1.3); GLUCOSE 152 mg/dL (74-106); POTASSIUM 3.6 mmol/L (3.5-5.1); SODIUM SERUM 140 mmol/L (136-145); UREA NITROGEN, BLOOD 20 mg/dL (7-18)
[2017-06-18] MEDS: ACETAMINOPHEN 325 MG TABLET PO PRN (07:41)
[2017-06-18] MEDS: LEVOTHYROXINE SODIUM 100 MCG TABLET PO SCH (07:41)
--- NOTE | 2017-06-18 07:58 | NUR ---
INITIAL GO RN NOTE RCVD PT AWAKE AND ALERT, SHOWING NO S/O DISTRESS. SR W/ 1st AVB ON TELE. TOLERATING O2 VIA NC. RIGHT FOOT DRESSING C/D/I. IV SITES C/D/I/PATENT. NO S/O INFILTRATION/PHLEBITIS OBSERVED UPON FLUSHING. WILL CONTINUE TO MONITOR PT FOR SAFETY AND COMFORT. CALL LIGHT WITHIN REACH. BED IN LOW AND LOCKED POSITION.
[2017-06-18 08:00] VITALS: BP 118/64
[2017-06-18] MEDS: ASCORBIC ACID 500 MG TABLET PO SCH (09:02)
[2017-06-18] MEDS: MULTIVIT, IRON, MIN NO. 8, FA 1 TAB PO SCH (09:02)
[2017-06-18] MEDS: ZINC SULFATE 220 MG CAPSULE PO SCH (09:02)
[2017-06-18] MEDS: FERROUS SULFATE (325 MG) 325 MG/TAB TABLET PO SCH ×2 (09:02→16:46)
[2017-06-18] MEDS: CALCIUM CARB 600MG /VIT D 1 EACH TABLET PO SCH (09:02)
[2017-06-18] MEDS: DULOXETINE HCL 30 MG CAPSULE.DR PO SCH (09:02)
[2017-06-18] MEDS: LACTOBACILLUS RHAMNOSUS GG 1 EACH CAP.SPRINK PO SCH ×2 (09:02→16:44)
[2017-06-18] MEDS: DOCUSATE SODIUM 100 MG CAPSULE PO SCH ×2 (09:02→16:44)
[2017-06-18] MEDS: CLOPIDOGREL BISULFATE 75 MG TABLET PO SCH (09:02)
[2017-06-18] MEDS: AMIODARONE HCL 200 MG TABLET PO SCH ×3 (09:03→16:44)
[2017-06-18] MEDS: DAKINS QUARTER STRENGTH (0.125%) 480 ML BOTTLE TOP SCH (09:03)
[2017-06-18] MEDS: Z GUARD REMEDY 2 OZ OINT TP SCH (09:04)
[2017-06-18] MEDS: INSULIN GLARGINE, 100 UNIT/ML CARTRIDGE SQ SCH (09:10)
[2017-06-18 12:00] VITALS: BP 123/64
[2017-06-18] MEDS ORDERED: HYDROCODONE/APAP 5/325MG 1 EACH TABLET PO PRN (13:30)
[2017-06-18] MEDS ORDERED: AMIO200T7 PO (14:04)
[2017-06-18] MEDS ORDERED: BUME2TAB3 PO (14:04)
[2017-06-18] MEDS ORDERED: Rivaroxaban PO (14:04)
[2017-06-18] MEDS ORDERED: DAPT500V2 IV (14:10)
[2017-06-18] MEDS ORDERED: CEFT1FRO2 IV (14:10)
[2017-06-18] MEDS: CEFTRIAXONE 1 G in IV NS 0.9% 50 ML IV SCH (15:20)
[2017-06-18 16:00] VITALS: BP 128/82
[2017-06-18] MEDS: RIVAROXABAN 15 MG TABLET PO SCH (16:44)
--- NOTE | 2017-06-18 17:00 | NUR ---
MARINA SALES AND SERVICE SUPERVISOR NOTE: RECEIVED REPORT FROM LEOLA, CARE MANAGER FOR CONTINUITY OF CARE FOR THE PATIENT.
--- NOTE | 2017-06-18 17:17 | NUR ---
GO RN NOTE PT'S CARE TRANSFERRED TO GO RN FOR CONTINUITY OF CARE. PT ALERT/ORIENTED, SITTING AT EDGE OF BED, SHOWING NO S/O DISTRESS/PAIN. BED IN LOW AND LOCKED POSITION. CALL LIGHT WITHIN REACH.
--- NOTE | 2017-06-18 19:28 | NUR ---
FUNERAL HOME ATTENDANT NOTE: REPORT GIVEN TO PM SHIFT NURSE FOR CONTINUITY OF CARE. PATIENT IN BED, AWAKE AND ABLE TO MAKE HIS NEEDS KNOWN. RELAYED TO PM SHIFT NURSE THAT PATIENT IS ON TELEMETRY DUE TO HIS NOC BIPAP PER DR. MERCER PER NURSE REPORT. PM SHIFT NURSE WAS ALSO INFORMED THAT THE PATIENT IS PLANNED TO GO HOME BY TOMORROW AND PATIENT CONFIRMED THAT HIS ANTIBIOTICS WILL BE DELIVERED TO HIS HOUSE AND THE WILL ACCEPT IT BY TOMORROW.
[2017-06-18 20:00] VITALS: BP 118/57
--- NOTE | 2017-06-18 20:00 | NUR ---
FIRE REGULATOR NOTE PT IN BED AWAKE. NO DISTRESS OR DISCOMFORT NOTED. DENIES PAIN. A/O X 2, NO SOB NOTED. LAC AND LT HAND IV SL REMOVED DUE TO LEAKING. KEVEN PICC LINE INTACT AND PATENT. F/C INTACT AND PATENT DRAINING YELLOWISH COLOR URINE. KEPT RT HEEL OFFLOADED.
[2017-06-18] MEDS: ATORVASTATIN 40 MG TABLET PO SCH (21:19)
[2017-06-18] MEDS: TAMSULOSIN 0.4 MG CAP.SR.24H PO SCH (21:19)
--- NOTE | 2017-06-18 21:20 | NUR ---
BANK TELLER MACHINE MECHANIC NOTE DR MUJICA AT BED SIDE AND DID DRESSING ON RT FOOT.
--- NOTE | 2017-06-18 23:40 | NUR ---
LAB COORDINATOR NOTE RT APPLIED BIPAP, PT TOLERATING WELL, NO DISTRESS OR DISCOMFORT NOTED.
[2017-06-19] VITALS: BP 122/67
--- NOTE | 2017-06-19 01:00 | NUR ---
BIOFUELS PLANT CONSTRUCTION WORKER NOTE PT REFUSED TO PUT BIPAP MASK ON. NO DISTRESS OR DISCOMFORT NOTED. RT REMOVED THE BIPAP AND TURNED OFF THE MACHINE.
[2017-06-19] MEDS: IPRATROPIUM NEB FS 0.5 MG/2.5 ML AMPUL.NEB NEB SCH ×3 (01:50→14:21)
[2017-06-19 04:00] VITALS: BP 120/60
[2017-06-19] MEDS: BLOOD SUGAR DIAGNOSTIC 1 EACH STRIP IN SCH ×2 (05:08→11:42)
[2017-06-19] MEDS: AMPICILLIN 1 GM in IV NS 0.9% 50 ML IV SCH ×2 (05:08→12:16)
[2017-06-19] MEDS: INSULIN REGULAR, HUMAN 100 UNIT/ML 3 ML VIAL SQ PRN ×2 (05:16→12:17)
--- NOTE | 2017-06-19 06:29 | NUR ---
BOOK PACKER NOTE PT IS AWAKE IN BED, NO DISTRESS OR DISCOMFORT NOTED. DENIES PAIN. KEVEN MIDLINE INTACT AND PATENT. F/C INTACT AND PATENT DRAINING YELLOWISH COLOR URINE. KEPT HIM DRY AND CLEAN. ALL NEEDS ATTENDED. WILL ENDORSE TO DAY SHIFT NURSE FOR CONTINUE TO CARE.
[2017-06-19 06:55] LABS: CARBON DIOXIDE 28 mmol/L (21-32); CHLORIDE 104 mmol/L (98-107); GLUCOSE 143 mg/dL (74-106); POTASSIUM 3.8 mmol/L (3.5-5.1); SODIUM SERUM 139 mmol/L (136-145); UREA NITROGEN, BLOOD 20 mg/dL (7-18)
--- NOTE | 2017-06-19 07:45 | NUR ---
RN NOTE RECEIVED PATIENT IN BED. ALERT AND ORIENTED X 4, HE IS ABLE TO VERBALIZE NEEDS AND MAKE THINGS KNOWN. NO DISCOMFORT OR DISTRESS NOTED. ON PROPERTY INSURANCE INSPECTOR SINUS RHYTHM HR OF 78, PATIENT DENIES ANY PAIN AT THIS TIME NOTED. IV ACCESS INTACT AND PATENT. HEAD OF BED ELEVATED FOR COMFORT. ROTH CATH WITH ADEQUATE FLOW OF URINE. BED LOW AND LOCKED POSITION. PLACED CALL LIGHT WITHIN REACH. WILL CONTINUE TO MONITOR
[2017-06-19 08:00] VITALS: BP 106/64
[2017-06-19] MEDS: CLOPIDOGREL BISULFATE 75 MG TABLET PO SCH (08:17)
[2017-06-19] MEDS: DOCUSATE SODIUM 100 MG CAPSULE PO SCH (08:17)
[2017-06-19] MEDS: MULTIVIT, IRON, MIN NO. 8, FA 1 TAB PO SCH (08:17)
[2017-06-19] MEDS: ZINC SULFATE 220 MG CAPSULE PO SCH (08:17)
[2017-06-19] MEDS: CALCIUM CARB 600MG /VIT D 1 EACH TABLET PO SCH (08:17)
[2017-06-19] MEDS: LEVOTHYROXINE SODIUM 100 MCG TABLET PO SCH (08:18)
[2017-06-19] MEDS: AMIODARONE HCL 200 MG TABLET PO SCH ×2 (08:18→12:20)
[2017-06-19] MEDS: FERROUS SULFATE (325 MG) 325 MG/TAB TABLET PO SCH (08:18)
[2017-06-19] MEDS: DULOXETINE HCL 30 MG CAPSULE.DR PO SCH (08:18)
[2017-06-19] MEDS: ASCORBIC ACID 500 MG TABLET PO SCH (08:18)
[2017-06-19] MEDS: LACTOBACILLUS RHAMNOSUS GG 1 EACH CAP.SPRINK PO SCH (08:18)
[2017-06-19] MEDS: DAKINS QUARTER STRENGTH (0.125%) 480 ML BOTTLE TOP SCH (08:19)
[2017-06-19] MEDS: Z GUARD REMEDY 2 OZ OINT TP SCH (08:20)
[2017-06-19] MEDS: INSULIN GLARGINE, 100 UNIT/ML CARTRIDGE SQ SCH (08:21)
[2017-06-19 08:38] VITALS: BP 106/49
[2017-06-19 12:00] VITALS: BP 129/82
[2017-06-19] MEDS: CEFTRIAXONE 1 G in IV NS 0.9% 50 ML IV SCH (14:06)
[2017-06-19 16:02] VITALS: BP 121/75
--- NOTE | 2017-06-19 16:15 | NUR ---
RN NOTE 76 YEAR OLD MALE DISCHARGED TO HOME IN STABLE CONDITION. COMPLIANT WITH MEDICATIONS, COOPERATIVE WITH TREATMENT PLANS. PATIENT IS INSTRUCTED TO GO TO CLOSET ER IF DEVELOPING SYMPTOMS WORSENS. TREATMENT PLANS MET. MEDICAL TREATMENTS PLANS DEFERRED FOR CONTINUAL MONITORING. EDUCATED PATIENT ABOUT AFTER CARE PLAN AND COPIES PROVIDED. RETURNED PERSONAL BELONGINGS TO PATIENT. MEDICATIONS RECONCILED, PATIENT SIGNED DISCHARGE PAPERWORK, WOUND PICTURES TAKEN AND DOCUMENTED IN CHART. PATIENT LEFT THE UNIT AT 1615 VIA GURNEY WITH AMBULANCE.
== END 2017-06-19 16:03 | disposition home health service (06) | DRG 987 ==
LOC: ER 21:53 → TELE 06-12 03:28 → ICU 06-12 08:48 → TELE-TD 06-15 15:27 → MEDSG1 06-17 08:14 → TELE-TD 06-17 09:29 → TELE1 06-18 11:04
PROVIDERS: ADMIT Internal Medicine; ATTEND Internal Medicine
PROC: 5A1945Z Respiratory Ventilation, 24-96 Consecutive Hours (ICD-10-PCS; principal; 2017-06-12)
PROC: 0BH17EZ Insertion of Endotracheal Airway into Trachea, Via Natural or Artificial Opening (ICD-10-PCS; 2017-06-12)
PROC: 0QBL0ZZ Excision of Right Tarsal, Open Approach (ICD-10-PCS; 2017-06-15)
PROC: 0QBL0ZZ Excision of Right Tarsal, Open Approach (ICD-10-PCS; 2017-06-17)
PROC: 0QBL0ZZ Excision of Right Tarsal, Open Approach (ICD-10-PCS; 2017-06-18)
PROC: 02HV33Z Insertion of Infusion Device into Superior Vena Cava, Percutaneous Approach (ICD-10-PCS; 2017-06-18)
PROC: B548ZZA Ultrasonography of Superior Vena Cava, Guidance (ICD-10-PCS; 2017-06-18)
PROC: 0QBL0ZZ Excision of Right Tarsal, Open Approach (ICD-10-PCS; 2017-06-19)
DX: J96.21 Acute and chronic respiratory failure with hypoxia (principal); I21.A1 Myocardial infarction type 2; N17.9 Acute kidney failure, unspecified; I96 Gangrene, not elsewhere classified; E46 Unspecified protein-calorie malnutrition; E11.22 Type 2 diabetes mellitus with diabetic chronic kidney disease; I95.9 Hypotension, unspecified; L03.115 Cellulitis of right lower limb; I48.91 Unspecified atrial fibrillation; E11.42 Type 2 diabetes mellitus with diabetic polyneuropathy; I13.0 Hypertensive heart and chronic kidney disease with heart failure and stage 1 through stage 4 chronic kidney disease, or unspecified chronic kidney disease; E11.52 Type 2 diabetes mellitus with diabetic peripheral angiopathy with gangrene; Z68.41 Body mass index [BMI] 40.0-44.9, adult; M86.671 Other chronic osteomyelitis, right ankle and foot; E66.2 Morbid (severe) obesity with alveolar hypoventilation; J96.22 Acute and chronic respiratory failure with hypercapnia; E11.621 Type 2 diabetes mellitus with foot ulcer; E11.65 Type 2 diabetes mellitus with hyperglycemia; L97.519 Non-pressure chronic ulcer of other part of right foot with unspecified severity; D63.8 Anemia in other chronic diseases classified elsewhere; R13.10 Dysphagia, unspecified; E78.5 Hyperlipidemia, unspecified; E03.9 Hypothyroidism, unspecified; I25.10 Atherosclerotic heart disease of native coronary artery without angina pectoris; N18.9 Chronic kidney disease, unspecified; N40.0 Benign prostatic hyperplasia without lower urinary tract symptoms; Z86.73 Personal history of transient ischemic attack (TIA), and cerebral infarction without residual deficits; Z95.5 Presence of coronary angioplasty implant and graft; Z91.14 Patient's other noncompliance with medication regimen; Z95.810 Presence of automatic (implantable) cardiac defibrillator; E11.69 Type 2 diabetes mellitus with other specified complication; B96.4 Proteus (mirabilis) (morganii) as the cause of diseases classified elsewhere; B96.20 Unspecified Escherichia coli [E. coli] as the cause of diseases classified elsewhere; Z16.21 Resistance to vancomycin; B95.2 Enterococcus as the cause of diseases classified elsewhere; Z79.4 Long term (current) use of insulin; F17.200 Nicotine dependence, unspecified, uncomplicated; J44.9 Chronic obstructive pulmonary disease, unspecified; K21.9 Gastro-esophageal reflux disease without esophagitis; Z91.19 Patient's noncompliance with other medical treatment and regimen; I25.2 Old myocardial infarction; Z89.512 Acquired absence of left leg below knee
CPT/HCPCS: 31720; 36415; 36569; 36600; 71045-TC; 80048-TC; 80053-TC; 80061-TC; 80076-TC; 80170-TC; 82306; 82728-TC; 82803-TC; 82962-TC; 83540-TC; 83735-TC; 83880; 84100-TC; 84439-TC; 84443-TC; 84484-TC; 85025-TC; 85730-TC; 86850-TC; 87040-TC; 87070-TC; 87081-TC; 87186-TC; 93307-TC; 94003-TC; 94760-TC; 94799-TC; A4216; A4606; A6253; A6402; A6403; C1751; C9113; J0153; J0282; J0290; J0330; J0690; J0696; J1100; J1120; J1580; J1644; J1650; J1815; J3490; J7030; J7040; J7050; J7060; Z7610

== ENCOUNTER → 2017-06-27 | Outpatient (CLI) | payer MEDICARE, BC ==
[~2017-06-27] MED LIST changes: +ALBU2.5V38 IH; +ALBUTEROL FS 2.5 MG/3 ML VIAL.NEB ONE; +AMIO200T7 PO; +ATOR20TA PO; +BRIM5DRO3 RIGHTEYE; +BUME2TAB3 PO; +CEFT1FRO2 IV; +D-ME118S12 PO; +DAPT500V2 IV; +FOLI0.8T23 PO; -FURO40TA5 PO; +FURO80TA3 PO; +FUROSEMIDE 40 MG/4 ML VIAL ONE; +GELATIN SPONGE,ABSORBABLE 1 SPONGE SPONGE TP ONE; +GUAI100S9 PO; +INSU100V27 SQ; +INSU100V7 SQ; -INSU3INS6 SQ; +IPRATROPIUM NEB FS 0.5 MG/2.5 ML AMPUL.NEB ONE; +LACT10SO PO; +LINE600T PO; +MODA100T14 PO; +NITROGLYCERIN PACKET 1 GM PACKET ONE; +POLY17PO4 PO; +PRED5DRO16 RIGHTEYE; +RXGEN XX; +Rivaroxaban PO; +SEVE800T8 PO
== END | disposition home health service (06) ==
LOC: WOU 10:48
PROVIDERS: ATTEND Nurse Practitioner Acute Care
DX: E11.621 Type 2 diabetes mellitus with foot ulcer (principal); L97.415 Non-pressure chronic ulcer of right heel and midfoot with muscle involvement without evidence of necrosis; Z89.612 Acquired absence of left leg above knee; E11.42 Type 2 diabetes mellitus with diabetic polyneuropathy; Z79.4 Long term (current) use of insulin; Z79.82 Long term (current) use of aspirin; E11.69 Type 2 diabetes mellitus with other specified complication; M86.9 Osteomyelitis, unspecified; Z79.899 Other long term (current) drug therapy; E66.9 Obesity, unspecified; Z68.41 Body mass index [BMI] 40.0-44.9, adult; B35.1 Tinea unguium; I89.0 Lymphedema, not elsewhere classified; Z99.3 Dependence on wheelchair; Z79.2 Long term (current) use of antibiotics
CPT/HCPCS: 11043; 36569; A6253; A6402; A6407; C1751; J1940

== ENCOUNTER 2017-07-03 11:16 | Outpatient (CLI) | payer MEDICARE, BC ==
[~2017-07-03 11:16] MED LIST changes: -ALBU2.5V38 IH; -ALBUTEROL FS 2.5 MG/3 ML VIAL.NEB ONE; -ATOR20TA PO; -BRIM5DRO3 RIGHTEYE; -D-ME118S12 PO; -FOLI0.8T23 PO; -FURO80TA3 PO; -FUROSEMIDE 40 MG/4 ML VIAL ONE; -GELATIN SPONGE,ABSORBABLE 1 SPONGE SPONGE TP ONE; -GUAI100S9 PO; -INSU100V27 SQ; -INSU100V7 SQ; -IPRATROPIUM NEB FS 0.5 MG/2.5 ML AMPUL.NEB ONE; -LACT10SO PO; -LINE600T PO; -MODA100T14 PO; -NITROGLYCERIN PACKET 1 GM PACKET ONE; -POLY17PO4 PO; -PRED5DRO16 RIGHTEYE; -RXGEN XX; -SEVE800T8 PO
== END 2017-07-03 23:59 | disposition home health service (06) ==
LOC: WOU 11:16
PROVIDERS: ATTEND Podiatrist Foot & Ankle Surgery
DX: E11.621 Type 2 diabetes mellitus with foot ulcer (principal); L97.416 Non-pressure chronic ulcer of right heel and midfoot with bone involvement without evidence of necrosis; Z89.612 Acquired absence of left leg above knee; Z89.421 Acquired absence of other right toe(s); Z99.3 Dependence on wheelchair; Z79.82 Long term (current) use of aspirin; Z79.4 Long term (current) use of insulin; Z79.899 Other long term (current) drug therapy; I89.0 Lymphedema, not elsewhere classified
CPT/HCPCS: 11044; 11047; A6253; A6402; A6407

== ENCOUNTER 2017-07-10 12:46 | Outpatient (CLI) | payer MEDICARE, BC | END 2017-07-10 23:59 | disposition other institution (70) | LOC: WOU 12:46 | PROVIDERS: ATTEND Podiatrist Foot & Ankle Surgery | DX: R50.9 Fever, unspecified (principal); R53.83 Other fatigue; E11.51 Type 2 diabetes mellitus with diabetic peripheral angiopathy without gangrene; Z89.612 Acquired absence of left leg above knee; Z99.3 Dependence on wheelchair; Z89.411 Acquired absence of right great toe; Z79.4 Long term (current) use of insulin | CPT/HCPCS: 82962-TC; G0463 ==

== ENCOUNTER 2017-07-10 13:08 | Inpatient (IN) | payer MEDICARE, BC ==
[~2017-07-10] VITALS: Ht 162.6 cm; Wt 122.5 kg
[2017-07-10] VITALS (31 sets, daily range): BP systolic 61–118; BP diastolic 35–77
[2017-07-10] MEDS ORDERED: ACETAMINOPHEN ES 500 MG TABLET PO ONE ×2 (13:30→15:00)
[2017-07-10] MEDS ORDERED: IV NS 0.9% 1,000 ML BAG IV ONE (13:30)
[2017-07-10] MEDS ORDERED: ACETAMINOPHEN ES 500 MG TABLET ONE ×2 (13:39→15:06)
[2017-07-10 13:43] LABS: BASOPHILS # (AUTO) 0.1 /CMM (0.0-0.2); BASOPHILS % (AUTO) 1.2 % (0.0-2.0); EOSINOPHILS % (AUTO) 0.2 % (0.0-6.0); HEMATOCRIT 24 % (39-51); HEMOGLOBIN 7.9 g/dL (13.5-17.5); LYMPHOCYTES # (AUTO) 0.2 /CMM (0.8-4.8); LYMPHOCYTES % (AUTO) 1.6 % (20.0-44.0); MEAN CORPUSCULAR HGB CONC 33 g/dl (31.0-36.0); MEAN CORPUSCULAR VOLUME 76 fL (80-96); MONOCYTES # (AUTO) 0.1 /CMM (0.1-1.30); MONOCYTES % (AUTO) 0.6 % (2.0-12.0); NEUTROPHILS # (AUTO) 11.1 /CMM (1.8-8.9); NEUTROPHILS % (AUTO) 96.4 % (43.0-81.0); PLATELET COUNT (AUTO) 172 /CMM (150-450); RDW COEFFICIENT OF VARIATION 19.2 (11.5-15.0); RED BLOOD CELL COUNT(AUTO) 3.22 MIL/uL (4.5-6.0); WHITE BLOOD COUNT (AUTO) 11.5 K/uL (4.3-11.0)
[2017-07-10 13:53] LABS: CALCIUM, SERUM 7.9 mg/dL (8.5-10.1); CARBON DIOXIDE 23 mmol/L (21-32); CHLORIDE 98 mmol/L (98-107); CREATININE 1.7 mg/dL (0.6-1.3); GLUCOSE 140 mg/dL (74-106); POTASSIUM 4.8 mmol/L (3.5-5.1); SODIUM SERUM 132 mmol/L (136-145); UREA NITROGEN, BLOOD 35 mg/dL (7-18)
[2017-07-10 13:54] LABS: INR 1.24 (0.85-1.15)
[2017-07-10 14:01] LABS: TROPONIN I 0.285 ng/mL (0.00-0.056)
[2017-07-10 14:04] LABS: ALANINE AMINOTRANSFERASE 29 U/L (12-78); ALBUMIN 2.6 g/dL (3.4-5.0); ALKALINE PHOSPHATASE 208 U/L (46-116); ASPARTATE AMINOTRANSFERASE 32 U/L (15-37); BILIRUBIN,DIRECT 0.3 mg/dL (0.0-0.2); BILIRUBIN,TOTAL 0.7 mg/dL (0.2-1.0)
--- NOTE | 2017-07-10 14:45 | NUR ---
CALLED [facility] DOBBY LOOM FIXER WAS PAGED.
[2017-07-10] MEDS ORDERED: IV NS 0.9% 500 ML BAG IV ONE (15:00)
--- NOTE | 2017-07-10 15:00 | NUR ---
DR. SIMENTAL AT FOR EVAL.
[2017-07-10] MEDS ORDERED: IV NS 0.9% 1,000 ML IV PRN ×2 (15:11→15:30)
[2017-07-10] MEDS ORDERED: BISACODYL SUPP (10 MG) 10 MG/SUPP.RECT SUPP.RECT RC PRN (15:30)
[2017-07-10] MEDS ORDERED: MAG HYDROX/AL HYDROX/SIMETH 30 ML UDC PO PRN (15:30)
[2017-07-10] MEDS ORDERED: ZOLPIDEM TARTRATE 5 MG TABLET PO PRN (15:30)
[2017-07-10] MEDS ORDERED: MORPHINE SULFATE INJ 4 MG/ML DISP.SYRIN IV PRN (15:30)
[2017-07-10] MEDS ORDERED: VANCOMYCIN 0.75 GM in IV D5W 250 ML IV SCH (15:30)
[2017-07-10] MEDS ORDERED: MAGNESIUM HYDROXIDE 30 ML UDC PO PRN (15:30)
[2017-07-10] MEDS ORDERED: Z GUARD REMEDY 2 OZ OINT TP PRN (15:30)
[2017-07-10] MEDS ORDERED: NITROGLYCERIN 0.4 MG/TAB BOTTLE SL PRN (15:30)
[2017-07-10] MEDS ORDERED: ONDANSETRON HCL/PF 4 MG/2 ML VIAL IVP PRN (15:30)
--- NOTE | 2017-07-10 16:12 | NUR ---
REPORT GIVEN TO JOEL BANUELOS FOR TELE 117-1.
--- NOTE | 2017-07-10 16:35 | NUR ---
RN NOTES RECEIVED PT FROM ER IN ROOM 117-2, PT IS LETHARGIC , WAKES UP PER VERBAL STIMULI , C/O SOB , O2 SAT 97% ON RA , PT PLACED ON 3L O2 N/C , SLEEP APNEA NOTED, HR IN 80'S , SR , BP= 81/45 , DR Alize ELIZABETH NOTIFIED , ABG AND NS 1L BULOUS ORDERED. CONTINUE TO MONITOR .
[2017-07-10] MEDS ORDERED: FEE PK DOSING 1 MIN EA MC ONE (16:42)
--- NOTE | 2017-07-10 16:45 | NUR ---
RN NOTES BULOUS NS 1L STARTED VIA R UPPER ARM PICC LINE PER MD ORDER
[2017-07-10] MEDS: FERROUS SULFATE (325 MG) 325 MG/TAB TABLET PO SCH (17:00)
[2017-07-10] MEDS: DOCUSATE SODIUM 100 MG CAPSULE PO SCH (17:00)
[2017-07-10] MEDS: LACTOBACILLUS RHAMNOSUS GG 1 EACH CAP.SPRINK PO SCH (17:00)
[2017-07-10] MEDS: DAKINS QUARTER STRENGTH (0.125%) 480 ML BOTTLE TOP SCH (17:00)
[2017-07-10] MEDS: CARVEDILOL 6.25 MG TABLET PO SCH (17:00)
[2017-07-10] MEDS ORDERED: AMIODARONE HCL 200 MG TABLET PO SCH (17:00)
[2017-07-10] MEDS: ALBUTEROL FS 2.5 MG/3 ML VIAL.NEB NEB SCH ×3 (17:06→23:15)
[2017-07-10] MEDS: IPRATROPIUM NEB FS 0.5 MG/2.5 ML AMPUL.NEB NEB SCH ×3 (17:06→23:15)
[2017-07-10 17:24] LABS: ABG BASE EXCESS -1.4 mmol/L; ABG OXYGEN SATURATION 94.6 % (92.0-98.5); ABG PCO2 31.1 mmHg (35.0-45.0); ABG PH 7.466 (7.350-7.450); ABG PO2 74.4 mmHg (75.0-100.0); AaDO2 117.4 mmHg; COHb 1.2 % (0.5-1.5); MetHb 0.4 % (0.0-1.5); O2Hb 93.1 % (94.0-97.0); SITE, ABG Left Brachial; VENT MODE, BG NASAL CANNULA @ 32%
[2017-07-10] MEDS ORDERED: IV NS 0.9% 1,000 ML IV ONE ×2 (17:30→19:00)
--- NOTE | 2017-07-10 17:35 | NUR ---
RN NOTES BP =71/45, HR IN 70'S , PT IS MORE LETHARGIC , PT LOOSES CONSCIOUSNESS WITH SLEEP APNEA, NEED TO BE CONSTANTLY STAY UP TO BREATH . PT STILL C/O SOB . DR HAAS NOTIFED, ORDER RECEIVED TO TRANSFER PT TO ICU .
--- NOTE | 2017-07-10 17:45 | NUR ---
RN NOTES PT TRANSFERD TO ICU, ACLS PROTOCOL FOLLOWED .
--- NOTE | 2017-07-10 17:56 | NUR ---
MINT MACHINE OPERATOR PT TRANSFERRED EMERGENTLY TO ICU FROM [facility] FOR INCREASING LETHARGY AND ABNORMAL ABG. PT PLACED ON BIPAP ORDERED. VANCO AND NS BOLUS INFUSING.
[2017-07-10] MEDS ORDERED: PIPERACILLIN /TAZOBACTAM 4.5 G in IV NS 0.9% 50 ML IV SCH (18:00)
[2017-07-10] MEDS ORDERED: HEPARIN INFUSION/D5W 500 ML IV PRN (18:00)
[2017-07-10] MEDS ORDERED: VANCOMYCIN 1 GM in IV NS 0.9% 250 ML IV SCH (18:00)
--- NOTE | 2017-07-10 18:00 | NUR ---
RT NOTE: LATE ENTRY- PATIENT RECEIVED ALERT WITH EPISODES OF APNEA. NURSE (PARVEEN) NOTIFIED . ABG DRAWN AND REPORTED. PATIENT TRANSFERRED TO ICU WITH NO PROBLEM AND PLACED ON BIPAP PER 'S ORDERS. PATIENT TRIES TO REMOVE MASK AT TIMES BUT OVERALL IS TOLERATING WELL. MEPILEX PLACED AT BRIDGE OF NOSE. WILL CONTINUE TO MONITOR. NURSE(LULY) AWARE.
[2017-07-10] MEDS ORDERED: NOREPINEPHRINE 8 MG in IV D5W 500 ML IV PRN (18:30)
[2017-07-10] MEDS ORDERED: DEXTROSE 50%-WATER 50 ML DISP.SYRIN IV PRN (19:00)
--- NOTE | 2017-07-10 19:30 | NUR ---
FINANCIAL COACH INITIAL NOTES RECEIVED PATIENT FROM DAY SHIFT NURSE LULY. PATIENT IN BED, EYES CLOSED, LETHARGIC, DIFFICULT TO AROUSE, BUT DOES WAKE TO TACTILE STIMULI. BREATHING LABORED, CURRENTLY ON BIPAP AT PRESCRIBED SETTINGS. PATIENT NOTED TO REMOVE BIPAP MASK, REPLACED AND ATTEMPTED TO EDUCATE PATIENT REGARDING NEED FOR BIPAP, BUT PATIENT STILL DOES NOT COMPREHEND. WILL COORDINATE WITH RT TO GET MASK THAT FITS PATIENT'S FACE BETTER. PATIENT NOTED WITH KEVEN PICC, DRESSING SOILED, WILL CHANGE DRESSING. NOTED WITH Monica HASTINGS, STUMP HEALED. RIGHT LOWER LEG NOTED WITH CELLULITIS AND MULTIPLE DISCOLORATIONS, DRY, CRACKED, MULTIPLE SCABS. ALL SKIN ISSUES PHOTOGRAPHED AND DOCUMENTED PER PROTOCOL. WILL INITIATE HEPARIN DRIP SOON POSSIBLE. BED IN LOWEST AND LOCKED POSITION, HOB KEPT ELEVATED. CALL LIGHT LEFT WITHIN EASY REACH. WILL CONTINUE TO CLOSELY MONITOR
[2017-07-10] MEDS ORDERED: PIPERACILLIN /TAZOBACTAM 2.25 G in IV NS 0.9% 50 ML IV SCH (20:00)
--- NOTE | 2017-07-10 20:00 | NUR ---
PROCESS LEAD NOTES CLARIFIED ORDER FOR HEPARIN DRIP WITH DR HAAS. LATEST TROPONIN = 0.285. DR HAAS WITH ORDER TO CHANGE HEPARIN DRIP FROM NON-ACS TO ACS. WILL INITIATE HEPARIN DRIP FOR ACS PER PROTOCOL
[2017-07-10] MEDS: MEROPENEM 500 MG in IV NS 0.9% 50 ML IV SCH (20:34)
[2017-07-10] MEDS: BLOOD SUGAR DIAGNOSTIC 1 EACH STRIP IN SCH (20:51)
[2017-07-10] MEDS: INSULIN REGULAR, HUMAN 100 UNIT/ML 3 ML VIAL SQ PRN (20:52)
[2017-07-10] MEDS ORDERED: HEPARIN SODIUM, PORCINE 5000 UNITS/1 ML VIAL SQ ONE (21:00)
[2017-07-10] MEDS ORDERED: HEPARIN SODIUM, PORCINE 5000 UNITS/1 ML VIAL IV ONE (21:00)
[2017-07-10] MEDS: HEPARIN INFUSION/D5W 500 ML IV PRN (21:17)
[2017-07-10] MEDS: TAMSULOSIN 0.4 MG CAP.SR.24H PO SCH (21:22)
[2017-07-10] MEDS: LINEZOLID RTU BAG 600 MG in PREMIX 1 EA IV SCH (21:23)
[2017-07-10] MEDS ORDERED: LIDOCAINE 2% JEL UROJET 10 ML MM ONE ×2 (22:30→22:55)
[2017-07-11] VITALS (77 sets, daily range): BP systolic 74–125; BP diastolic 31–96
[2017-07-11] MEDS: BLOOD SUGAR DIAGNOSTIC 1 EACH STRIP IN SCH ×6 (00:23→21:37)
[2017-07-11] MEDS: INSULIN REGULAR, HUMAN 100 UNIT/ML 3 ML VIAL SQ PRN ×6 (00:26→21:34)
[2017-07-11] MEDS: ALBUTEROL FS 2.5 MG/3 ML VIAL.NEB NEB SCH ×4 (03:29→19:17)
[2017-07-11] MEDS: IPRATROPIUM NEB FS 0.5 MG/2.5 ML AMPUL.NEB NEB SCH ×4 (03:29→19:17)
--- NOTE | 2017-07-11 04:00 | NUR ---
SALES OPERATIONS COORDINATOR NOTES - PT AWAKE PATIENT NOW AWAKE, ALERT AND ORIENTED X3, ABLE TO VERBALIZE NEEDS. PATIENT EDUCATION RENDERED REGARDING NEED TO KEEP BIPAP MASK ON. PATIENT VERBALIZES UNDERSTANDING AND AGREES TO KEEP MASK ON. WILL CONTINUE TO CLOSELY MONITOR
--- NOTE | 2017-07-11 04:00 | NUR ---
AIRDOX FITTER NOTES BLADDER SCAN SHOWING 650 ML OF URINE. PATIENT UNABLE TO URINATE. ROTH CATHETER INSERTED BY CHARGE NURSE JAGUAR. PATIENT TOLERATED PROCEDURE WELL, DRAINING CLEAR YELLOW URINE BY GRAVITY.
--- NOTE | 2017-07-11 05:30 | NUR ---
FLY FISHING GUIDE NOTES FOLLOWED UP WITH LAB REGARDING RESULTS FOR 0400 PTT. PER KACEY, THEY WILL SEND A TECH STST FOR LAB DRAW
--- NOTE | 2017-07-11 05:33 | NUR ---
RT PT RECEIVED ON BIPAP AWAKE/ALERT WITH NOTED SETTING. PT TOLERATED SETTING WELL. NO SOB OR DISTRESS NOTED ON SHIFT. ALARMS SET AND AUDIBLE. BIPAP TO RED OUTLET. Addendum: 07/11/17 at 0538 by TAHIRA HANSON RT Amended: Links added.
--- NOTE | 2017-07-11 05:45 | NUR ---
CELLULAR TOWER CLIMBER NOTES LATEST PTT RESULT = 48, NO CHANGE IN HEPARIN GTT RATE.
[2017-07-11 06:09] LABS: BASOPHILS % (AUTO) 0.2 % (0.0-2.0); HEMATOCRIT 24 % (39-51); HEMOGLOBIN 7.6 g/dL (13.5-17.5); LYMPHOCYTES % (AUTO) 5.8 % (20.0-44.0); MEAN CORPUSCULAR HGB CONC 31 g/dl (31.0-36.0); MEAN CORPUSCULAR VOLUME 77 fL (80-96); MONOCYTES % (AUTO) 5.8 % (2.0-12.0); NEUTROPHILS % (AUTO) 88.2 % (43.0-81.0); PLATELET COUNT (AUTO) 160 /CMM (150-450); RDW COEFFICIENT OF VARIATION 20.4 (11.5-15.0); RED BLOOD CELL COUNT(AUTO) 3.16 MIL/uL (4.5-6.0)
[2017-07-11 06:35] LABS: CALCIUM, SERUM 7.4 mg/dL (8.5-10.1); CARBON DIOXIDE 25 mmol/L (21-32); CHLORIDE 100 mmol/L (98-107); CREATININE 1.8 mg/dL (0.6-1.3); GLUCOSE 219 mg/dL (74-106); MAGNESIUM 2.2 mg/dL (1.8-2.4); POTASSIUM 4.7 mmol/L (3.5-5.1); SODIUM SERUM 134 mmol/L (136-145); UREA NITROGEN, BLOOD 38 mg/dL (7-18)
[2017-07-11 06:37] LABS: IRON, SERUM 8 ug/dl (50-175); TOTAL IRON BINDING CAPACITY 263 ug/dl (250-450)
[2017-07-11 06:51] LABS: THYROID STIMULATING HORMONE 5.409 uIU/mL (0.358-3.74)
--- NOTE | 2017-07-11 06:53 | NUR ---
SUPPLY CHAIN INTERN CLOSING NOTES PATIENT RESTING IN BED, SLEEPING AT THIS. ROTH CATHETER CONTINUES TO DRAIN DAVEY COLORED URINE BY GRAVITY. CONTINUES ON BIPAP. WILL ENDORSE THE PATIENT TO THE AM SHIFT NURSE FOR CONTINUITY OF CARE
--- NOTE | 2017-07-11 07:15 | NUR ---
CARE TRANSPORT NURSE NOTES RECEIVED PATIENT AOX3 , ON BIPAP SETTINGS ORDERED WITH SPO2 OF 100% , SR 75 WITH BBB ON BEDSIDE MONITOR , FC DRAINING VIOA GRAVITY WITH CLEAR YELLOW URINE , RIGHT FOOT AND LEG DRESSING C/D/I , KEVEN PICC LINE WITH LEVOPHED @ 4MCG/MIN , HEPARIN DRIP @1200U/HR INFUSING WELL , ALL NEEDS ATTENDED BED ON LOW AND LOCKED POSITION , SIDE RAILS X2 , CALL LIGHT WITHIN REACH , HOB @ 45 , WILL CONTINUE TO MONITOR .
--- NOTE | 2017-07-11 07:30 | NUR ---
SPECIAL FORCES COMMUNICATIONS SERGEANT NOTES PATIENT IS MORE AWAKE ALERT X4 , NOT IN ACUTE DISTRESS , DENIES SOB AND DISCOMFORT AT THIS TIME , TOLERATING CURRENT BIPAP SETTINGS , RT FABRICIO AT BEDSIDE FOR BREATHING TREATMENT , AND WILL HOLD BIPAP AND PLACE PATIENT ON NASAL CANNULA @ 3LPM ,WILL CONTINUE TO MONITOR
--- NOTE | 2017-07-11 08:05 | NUR ---
LIBRARY CLERK NOTES SPOKE WITH DR REYNA , NOTIFIED TROPONIN OF 0.943 , ON HEPARIN DRIP @ 1200U/HR , NO NEW ORDERS RECEIVED , VERIFIED IF ITS OK TO GIVE PLACIX 75MG PT INS ON HEPARIN DRIP , PER MD OK TO GIVE .
[2017-07-11] MEDS: CLOPIDOGREL BISULFATE 75 MG TABLET PO SCH (08:23)
[2017-07-11] MEDS: DAKINS QUARTER STRENGTH (0.125%) 480 ML BOTTLE TOP SCH ×2 (08:23→16:28)
[2017-07-11] MEDS: ATORVASTATIN 40 MG TABLET PO SCH (08:23)
[2017-07-11] MEDS: LEVOTHYROXINE SODIUM 100 MCG TABLET PO SCH (08:23)
[2017-07-11] MEDS: DOCUSATE SODIUM 100 MG CAPSULE PO SCH ×2 (08:24→16:27)
[2017-07-11] MEDS: ZINC SULFATE 220 MG CAPSULE PO SCH (08:24)
[2017-07-11] MEDS: FERROUS SULFATE (325 MG) 325 MG/TAB TABLET PO SCH ×2 (08:24→16:27)
[2017-07-11] MEDS: LACTOBACILLUS RHAMNOSUS GG 1 EACH CAP.SPRINK PO SCH ×2 (08:24→16:27)
[2017-07-11] MEDS: ASPIRIN 81 MG TAB.CHEW PO SCH (08:24)
[2017-07-11] MEDS: MEROPENEM 500 MG in IV NS 0.9% 50 ML IV SCH ×2 (08:24→21:06)
[2017-07-11] MEDS: CARVEDILOL 6.25 MG TABLET PO SCH ×2 (08:24→16:27)
[2017-07-11] MEDS: ASCORBIC ACID 500 MG TABLET PO SCH (08:24)
[2017-07-11] MEDS: AMIODARONE HCL 200 MG TABLET PO SCH (08:24)
[2017-07-11] MEDS ORDERED: DULOXETINE HCL 30 MG CAPSULE.DR PO SCH (09:00)
[2017-07-11] MEDS: LINEZOLID RTU BAG 600 MG in PREMIX 1 EA IV SCH ×2 (09:54→21:35)
[2017-07-11] MEDS: ACETAMINOPHEN 325 MG TABLET PO PRN (09:56)
--- NOTE | 2017-07-11 10:05 | NUR ---
FIELD CROP FARMWORKER NOTES TYLENOL PO ORDERED GIVE PRN PER PATIENT REQUEST , PT COMPLAINING OF MILD NECK PAIN 04/28 , WILL CONTINUE TO MONITOR
--- NOTE | 2017-07-11 10:18 | NUR ---
NAPKIN MACHINE OPERATOR NOTES DR AGUIRRE AT BEDSIDE FOR RIGHT FOOT DEBRIDEMENT , PT STABLE POST RIGHT FOOD DEBRIDEMENT , V/S STABLE AFEBRILE , AWAITING FOR WOUND TX ORDER .
[2017-07-11 10:55] LABS: APPEARANCE,URINE SL CLOUDY (CLEAR); BILIRUBIN,URINE NEGATIVE (NEGATIVE); BLOOD, URINE NEGATIVE Ery/uL (NEGATIVE); COLOR,URINE YELLOW (YELLOW); KETONES,URINE NEGATIVE (NEGATIVE); LEUKOCYTE ESTERASE ,URINE NEGATIVE (NEGATIVE); NITRITE, URINE NEGATIVE (NEGATIVE); PH,URINE 5.5 (5.0-8.0); PROTEIN,URINE TRACE mg/dl (NEGATIVE); UGLUCOSE NEGATIVE (NEGATIVE); UROBILINOGEN,URINE 0.2 EU/dL (0.2)
--- NOTE | 2017-07-11 11:16 | NUR ---
NAIL STICKER NOTES SEEN AND EVALUATED BY JOSE RAUL ,DISCUSSED LABS , CURRENT V/S , AFEBRILE , NO ACTIVE DIARRHEA , ON 4MCG/MIN OF LEVOPHED , S/P RIGHT FOOT DEBRIDEMENT BY DR DAVIES PENDING WOUND VAC PLACEMENT , VERIFIED IF SHE WANTS TO SEND PICC LINE TIP FOR CULTURE , PER AIRPORT UTILITY WORKER OK TO SEND . ORDERS CARRIED OUT .
--- NOTE | 2017-07-11 11:50 | NUR ---
RISK INVESTIGATOR NOTES DR POOLE AT BEDSIDE , WOUND VAC APPLIED ATTACHED TO 125MMHG VACUUM , OK TO WRAP RIGHT FOOT WITH MINNIE BANDAGE ,
[2017-07-11 11:52] LABS: BACTERIA,URINE Rare /HPF (None Seen); RBC,URINE NONE SEEN /HPF (0-2); SQUAMOUS EPITHELIAL CELL,UR Few /HPF (None Seen); WBC,URINE 0-2 /HPF (0-3)
[2017-07-11] MEDS: CIPROFLOXACIN HCL 0.3% 5 ML BOTTLE RIGHTEYE SCH ×3 (13:00→21:06)
[2017-07-11] MEDS: prednisoLONE ACET 1% OPHT DROP 5 ML BOTTLE RIGHTEYE SCH ×3 (13:00→21:06)
[2017-07-11] MEDS: BRIMONIDINE TARTRATE OPHT SOLN 5 ML BOTTLE RIGHTEYE SCH ×2 (13:00→16:51)
[2017-07-11] MEDS ORDERED: INSULIN GLARGINE, 100 UNIT/ML CARTRIDGE SQ ONE (15:00)
[2017-07-11] MEDS: HYDROCODONE/APAP 5/325MG 1 EACH TABLET PO PRN ×2 (15:10→21:32)
--- NOTE | 2017-07-11 15:14 | NUR ---
GAMBLING SUPERVISOR NOTES PICC LINE NURSE AT BEDSIDE , DISCUSSED LEFT UPPER ARM PICC PLACEMENT, RN AWARE
--- NOTE | 2017-07-11 15:19 | NUR ---
SENIOR INFORMATICA ETL DEVELOPER NOTES PATIENT COMPLAINS OF RIGHT FOOT PAIN 7/10 SCALE , SHARP IN CHARACTERISTICS , REQUESTED NORCO 5-325MG PRN , EXPLAINED THE RISK OF TAKING THE MEDICATIONS HE WAS RECENTLY OFF BIPAP , PT UNDERSTANDS BUT STILL WANTS TO TAKE NORCO FOR PAIN , WILL CONTINUE TO MONITOR
--- NOTE | 2017-07-11 15:59 | NUR ---
FORGING PRESS LEVER TENDER NOTES NOTIFIED DR HAAS THAT PICC NURSE RN IS UNABLE TO INSERT PICC LINE DUE TO AICD PLACEMENT , VERIFIED IF WE CAN PUT MIDLINE FOR ACCESS , PER MD DILLON TO PUT MIDLINE , ORDER CARRIED OUT
--- NOTE | 2017-07-11 17:00 | NUR ---
DIRECTOR OF CULTURE NOTES KEVEN PICC LINE DISCONTINUED , PRESSURE APPLIED FOR 10MINUTES , NO ACTIVE BLEEDING NOTED AT OLD PICC LINE SITE , CATHETER TIP SENT TO LAB ORDERED .
[2017-07-11] MEDS: HEPARIN INFUSION/D5W 500 ML IV PRN (18:11)
--- NOTE | 2017-07-11 19:00 | NUR ---
SUPERVISOR ELECTROLYTIC TINNING NOTES Received patient awake,alert,conversant,coherent and appropriate.Not in any acute distress ,on room air breathing regular and non labored.BIPAP at HS .Denies any pain,on Heparin drip at 1200 units/hr. Midline ( 2 lumen) via SHAVONNE .Right foot S/P Debridement with wound vac (125 mm/hg) with no drainage noted at this time. Comfort care done,needs attended.Will closely monitor for S/S of bleeding,last PTT therapeutic as pre protocol,will repeat in am.Will monitor for any chest pain .
[2017-07-11] MEDS: TAMSULOSIN 0.4 MG CAP.SR.24H PO SCH (21:31)
[2017-07-12] VITALS (20 sets, daily range): BP systolic 94–145; BP diastolic 55–84
--- NOTE | 2017-07-12 | NUR ---
ENTRY PROCESSOR NOTES Patient refuses to wear BIPAP tonight,explained that if his respiratory status and neuro status changes that he needs to use the BIPAP.will closely monitor overnight if needed will place patient on BIPAP.Patient remains awake,alert,not in any distress,comfortable on room air.
--- NOTE | 2017-07-12 00:25 | NUR ---
RT PT REQUESTED TO ALLOW TO SLEEP WITHOUT BIPAP IF POSSIBLE. RN MADE AWARE. NO SOB OR DISTRESS NOTED AT THIS MOMENT. WILL CONTINUE TO MONITOR.
[2017-07-12] MEDS: BLOOD SUGAR DIAGNOSTIC 1 EACH STRIP IN SCH ×6 (01:00→20:36)
--- NOTE | 2017-07-12 02:00 | NUR ---
PUMP OPERATOR NOTES SLEEPS ON AND OFF,NOT IN DISTRESS,STILL REFUSING TO USE BIPAP MACHINE,PATIENT REMAINS ALERT,COHERENT.WILL CONTINUE TO MONITOR NEURO STATUS,CONTINUE HEPARIN DRIP CLOSELY MONITOR FOR S/S OF ANY BLEEDING.
[2017-07-12] MEDS: IPRATROPIUM NEB FS 0.5 MG/2.5 ML AMPUL.NEB NEB SCH ×4 (02:02→19:47)
[2017-07-12] MEDS: ALBUTEROL FS 2.5 MG/3 ML VIAL.NEB NEB SCH ×4 (02:02→19:47)
[2017-07-12] MEDS: INSULIN REGULAR, HUMAN 100 UNIT/ML 3 ML VIAL SQ PRN ×6 (02:07→20:48)
[2017-07-12 04:44] LABS: HEMATOCRIT 23 % (39-51); HEMOGLOBIN 7.3 g/dL (13.5-17.5); MEAN CORPUSCULAR HGB CONC 32 g/dl (31.0-36.0); MEAN CORPUSCULAR VOLUME 77 fL (80-96); PLATELET COUNT (AUTO) 167 /CMM (150-450); RDW COEFFICIENT OF VARIATION 20.7 (11.5-15.0); RED BLOOD CELL COUNT(AUTO) 2.98 MIL/uL (4.5-6.0); WHITE BLOOD COUNT (AUTO) 13.1 K/uL (4.3-11.0)
[2017-07-12 05:05] LABS: BAND % (MANUAL) 1 % (0.0-5.0); LYMPHOCYTES % (MANUAL) 14 % (16-48); MONOCYTES % (MANUAL) 3 % (0-11.0); NEUTROPHILS % (MANUAL) 82 (42-76)
[2017-07-12 05:11] LABS: ALANINE AMINOTRANSFERASE 41 U/L (12-78); ALBUMIN 2.4 g/dL (3.4-5.0); ALKALINE PHOSPHATASE 184 U/L (46-116); ASPARTATE AMINOTRANSFERASE 33 U/L (15-37); BILIRUBIN,TOTAL 0.3 mg/dL (0.2-1.0); CALCIUM, SERUM 7.4 mg/dL (8.5-10.1); CARBON DIOXIDE 27 mmol/L (21-32); CHLORIDE 101 mmol/L (98-107); CREATININE 1.7 mg/dL (0.6-1.3); GLUCOSE 150 mg/dL (74-106); MAGNESIUM 2.2 mg/dL (1.8-2.4); PHOSPHORUS 3.6 mg/dL (2.5-4.9); POTASSIUM 4.5 mmol/L (3.5-5.1); SODIUM SERUM 134 mmol/L (136-145); TOTAL PROTEIN, SERUM 7.2 g/dL (6.4-8.2); UREA NITROGEN, BLOOD 38 mg/dL (7-18)
--- NOTE | 2017-07-12 06:00 | NUR ---
PTT=38,HEPAIN DRIP INCREASE BY 200 UNITS PER PROTOCOL ( 1400 UNITS/HR)
--- NOTE | 2017-07-12 07:00 | NUR ---
RTEPORT GIVEN TO CLAIRE BANUELOS,PATIENT REMAINS AWAKE,BARELY SLEPT LAST NIGHT AND REFUSED BIPAP ALL NIGHT,DESPITE REPEATED DEMAND.
--- NOTE | 2017-07-12 07:05 | NUR ---
FRONT ELEVATOR OPERATOR NOTES RECEIVED PATIENT AOX4 , SPO2 OF 100% VIA RA WITH NO SIGNS OF DISTRESS, SR 77 WITH BBB ON BEDSIDE MONITOR , FC DRAINING VIA GRAVITY WITH CLEAR YELLOW URINE , RIGHT FOOT WOUND ATTACHED TO WOUND VAC @125MMHG DRAINING WITH TEA COLORED OUTPUT , SHAVONNE MIDLINE #18 WITH HEPARIN DRIP @1400U/HR INFUSING WELL , ALL NEEDS ATTENDED BED ON LOW AND LOCKED POSITION , SIDE RAILS X2 , CALL LIGHT WITHIN REACH , HOB @ 45 , WILL CONTINUE TO MONITOR .
--- NOTE | 2017-07-12 07:08 | NUR ---
WOUND VAC DRAINED=25 ML ,CLEAR TEA COLORED.WOUND VAC WORKING WELL AT 125 MMHG
[2017-07-12] MEDS: ATORVASTATIN 40 MG TABLET PO SCH (08:00)
[2017-07-12] MEDS: ZINC SULFATE 220 MG CAPSULE PO SCH (08:00)
[2017-07-12] MEDS: LACTOBACILLUS RHAMNOSUS GG 1 EACH CAP.SPRINK PO SCH ×2 (08:00→16:03)
[2017-07-12] MEDS: AMIODARONE HCL 200 MG TABLET PO SCH (08:01)
[2017-07-12] MEDS: LEVOTHYROXINE SODIUM 100 MCG TABLET PO SCH (08:01)
[2017-07-12] MEDS: CLOPIDOGREL BISULFATE 75 MG TABLET PO SCH (08:01)
[2017-07-12] MEDS: ASPIRIN 81 MG TAB.CHEW PO SCH (08:01)
[2017-07-12] MEDS: prednisoLONE ACET 1% OPHT DROP 5 ML BOTTLE RIGHTEYE SCH ×4 (08:01→20:37)
[2017-07-12] MEDS: ASCORBIC ACID 500 MG TABLET PO SCH (08:01)
[2017-07-12] MEDS: DOCUSATE SODIUM 100 MG CAPSULE PO SCH ×2 (08:01→16:03)
[2017-07-12] MEDS: FERROUS SULFATE (325 MG) 325 MG/TAB TABLET PO SCH ×2 (08:01→16:03)
[2017-07-12] MEDS: CARVEDILOL 6.25 MG TABLET PO SCH ×2 (08:01→16:03)
[2017-07-12] MEDS: DAKINS QUARTER STRENGTH (0.125%) 480 ML BOTTLE TOP SCH ×2 (08:02→16:04)
[2017-07-12] MEDS: BRIMONIDINE TARTRATE OPHT SOLN 5 ML BOTTLE RIGHTEYE SCH ×3 (08:02→16:04)
[2017-07-12] MEDS: CIPROFLOXACIN HCL 0.3% 5 ML BOTTLE RIGHTEYE SCH ×4 (08:02→20:38)
[2017-07-12] MEDS: MEROPENEM 500 MG in IV NS 0.9% 50 ML IV SCH (08:04)
[2017-07-12] MEDS: LINEZOLID RTU BAG 600 MG in PREMIX 1 EA IV SCH (08:48)
--- NOTE | 2017-07-12 09:30 | NUR ---
LINKER UP NOTES NOTIFIED DR HAAS AND MARIBELL REGARDING HEPARIN DRIP , PT PTT IS 38 , CURRENTLY ON HEPARIN DRIP @ 1400U/HR , MAX DOSE PER PROTOCOL IS 1200U/HR , VERIFIED IF HE WANTS TO CONTINUE AND DC THE ORDER . AWARE . AWAITING FOR ORDERS
--- NOTE | 2017-07-12 09:40 | NUR ---
NEEDLE LOOM SETTER NOTES SEEN AND EVALUATED BY DR MERCER ,DISCUSSED LABS , CHEST XRAY , SPO2 OF 100 VIA RA , AOX4 , REFUSED NOCTURNAL BIPAP , S/P RIGHT FOOT DEBRIDEMENT PLACED ON WOUND VAC @ 125MMHG , MD AWARE . OK TO TRANSFER .
[2017-07-12] MEDS: INSULIN GLARGINE, 100 UNIT/ML CARTRIDGE SQ SCH (10:06)
[2017-07-12] MEDS: FUROSEMIDE 100 MG/10 ML VIAL IV SCH ×3 (10:46→18:06)
[2017-07-12] MEDS: ACETAMINOPHEN 325 MG TABLET PO PRN (15:00)
--- NOTE | 2017-07-12 16:35 | NUR ---
RN ADMITTING NOTES RECEIVED REPORT FROM MAURICE CARTON REPAIRER, PT TRANSFERRED FROM ICU VIA [facility], BREATHING EVEN AND UNLABORED, NO C/O PAIN/DISCOMFORT, ORIENTED TO ROOM, PLACED ON TELE MONITOR, ROUTINE ASSESSMENT DONE, VS TAKEN, NOTED WITH FC, INTACT AND DRAINING WELL, WITH SHAVONNE MIDLINE, INTACT AND PATENT, WITH RIGHT FOOT DRESSING CONNECTED TO WOUND VAC AT 125MMHG SUCTION PRESSURE, DRESSING DRY AND INTACT, BED IN LOW AND LOCKED POSITION, CALL LIGHT WITHIN REACH, WILL CONTINUE TO MONITOR
--- NOTE | 2017-07-12 16:44 | NUR ---
HOSIERY MENDER NOTES TRANSFERRED PT TO ROOM 110 , REPORT GIVEN TO ROSALINDA BANUELOS FOR CONTINUITY OF CARE . ALL QUESTIONS ANSWERED , PT CURRENTLY STABLE AT THIS TIME , V/S STABLE ,AFEBRILE ,
[2017-07-12] MEDS ORDERED: FEE PK DOSING 1 MIN EA MC ONE (18:59)
--- NOTE | 2017-07-12 19:00 | NUR ---
RN CLOSING NOTES PT IN BED, ALERT, NO ACUTE CHANGES NOTED, NO C/O PAIN/DISCOMFORT, STILL ON TELE MONITOR, FC KEPT INTACT AND DRAINING WELL, SHAVONNE MIDLINE KEPT INTACT AND PATENT, RIGHT FOOT WOUND DRESSING CONNECTED TO WOUND VAC AT 125MMHG SUCTION PRESSURE, DRESSING REMAINED DRY AND INTACT, OBSERVED SAFETY PRECAUTION AT ALL TIMES, DURING LAST ROUNDS, PT IS REQUESTING FOR NICOTINE PATCH, ENDORSE TO PM NURSE FOR CONTINUITY OF CARE
--- NOTE | 2017-07-12 19:30 | NUR ---
TELE/RN NOTES: RECEIVED PT. SITTING IN BED WATCHING TV. A/O X 4. RA SAT. 100%. DENIES ANY C/O CHEST PAIN OR SOB AT PRESENT. ON TELE MONITOR SR 65 BBB. HAS A MID LINE ON SHAVONNE PATENT AND INTACT W/ NO S/S OF INFECTION/INFILTRATION NOTED. HAS A WOUND VAC ON RT. FOOT @ 125 mm Hg SUCTION DRAINING SEROSANGUINEOUS DRAINAGE. HAS A F/C PATENT AND INTACT DRAINING VIA GRAVITY YELLOW COLOR URINE. BEDS LOCKED AND IN LOW POSITION. WILL CONTINUE TO MONITOR. CALL LIGHT W/ REACH.
[2017-07-12] MEDS: GENTAMICIN 140 MG in IV D5W 100 ML IV SCH (20:37)
[2017-07-12] MEDS: LINEZOLID 600 MG TABLET PO SCH (20:37)
[2017-07-12] MEDS: TAMSULOSIN 0.4 MG CAP.SR.24H PO SCH (21:47)
[2017-07-13] VITALS: BP 118/62
[2017-07-13] MEDS: BLOOD SUGAR DIAGNOSTIC 1 EACH STRIP IN SCH ×6 (00:30→21:40)
[2017-07-13] MEDS: INSULIN REGULAR, HUMAN 100 UNIT/ML 3 ML VIAL SQ PRN ×6 (00:33→21:38)
[2017-07-13] MEDS: ALBUTEROL FS 2.5 MG/3 ML VIAL.NEB NEB SCH ×4 (01:14→20:09)
[2017-07-13] MEDS: IPRATROPIUM NEB FS 0.5 MG/2.5 ML AMPUL.NEB NEB SCH ×4 (01:14→20:09)
[2017-07-13 04:00] VITALS: BP 133/69
[2017-07-13 06:51] LABS: BASOPHILS % (AUTO) 0.1 % (0.0-2.0); EOSINOPHILS % (AUTO) 1.4 % (0.0-6.0); HEMATOCRIT 24 % (39-51); HEMOGLOBIN 7.4 g/dL (13.5-17.5); MEAN CORPUSCULAR HGB CONC 32 g/dl (31.0-36.0); MEAN CORPUSCULAR VOLUME 76 fL (80-96); MONOCYTES # (AUTO) 0.6 /CMM (0.1-1.30); NEUTROPHILS # (AUTO) 7.5 /CMM (1.8-8.9); NEUTROPHILS % (AUTO) 81.5 % (43.0-81.0); PLATELET COUNT (AUTO) 202 /CMM (150-450); RDW COEFFICIENT OF VARIATION 20.8 (11.5-15.0); RED BLOOD CELL COUNT(AUTO) 3.11 MIL/uL (4.5-6.0); WHITE BLOOD COUNT (AUTO) 9.2 K/uL (4.3-11.0)
[2017-07-13 07:16] LABS: ALANINE AMINOTRANSFERASE 37 U/L (12-78); ALBUMIN 2.7 g/dL (3.4-5.0); ALKALINE PHOSPHATASE 213 U/L (46-116); ASPARTATE AMINOTRANSFERASE 21 U/L (15-37); BILIRUBIN,TOTAL 0.3 mg/dL (0.2-1.0); CALCIUM, SERUM 8.1 mg/dL (8.5-10.1); CARBON DIOXIDE 27 mmol/L (21-32); CHLORIDE 102 mmol/L (98-107); CREATININE 1.5 mg/dL (0.6-1.3); GLUCOSE 141 mg/dL (74-106); MAGNESIUM 2.2 mg/dL (1.8-2.4); PHOSPHORUS 3.6 mg/dL (2.5-4.9); POTASSIUM 4.4 mmol/L (3.5-5.1); SODIUM SERUM 137 mmol/L (136-145); TOTAL PROTEIN, SERUM 7.9 g/dL (6.4-8.2); UREA NITROGEN, BLOOD 38 mg/dL (7-18)
[2017-07-13 08:00] VITALS: BP 121/74
--- NOTE | 2017-07-13 08:05 | NUR ---
RN OPEN NOTES RECEIVE BEDSIDE REPORT FROM PANTOGRAPH MACHINE SET UP OPERATOR RN. PATIENT IS IN BED. ALERT AND ORIENTED TO NAME, TIME AND PLACE. NO SIGNS AND SYMPTOMS OF DISTRESS. DENIED PAIN. BED IS AT LOWEST POSITION, LOCKED AND TWO SIDE RAILS ARE UP FOR SAFETY. CALL LIGHT WITHIN REACH FOR SAFETY. WILL CONTINUE TO MONITOR PATIENT
--- NOTE | 2017-07-13 08:22 | NUR ---
INSTRUCTOR DRAMATIC ARTS NOTES: NO ACUTE CHANGES NOTED DURING THIS SHIFT. REPORT GIVEN TO AM NURSE FOR CRYSTAL.
[2017-07-13] MEDS: ATORVASTATIN 40 MG TABLET PO SCH (09:27)
[2017-07-13] MEDS: AMIODARONE HCL 200 MG TABLET PO SCH (09:27)
[2017-07-13] MEDS: CARVEDILOL 6.25 MG TABLET PO SCH ×2 (09:27→16:19)
[2017-07-13] MEDS: ZINC SULFATE 220 MG CAPSULE PO SCH (09:28)
[2017-07-13] MEDS: LACTOBACILLUS RHAMNOSUS GG 1 EACH CAP.SPRINK PO SCH ×2 (09:28→16:17)
[2017-07-13] MEDS: CLOPIDOGREL BISULFATE 75 MG TABLET PO SCH (09:28)
[2017-07-13] MEDS: ASPIRIN 81 MG TAB.CHEW PO SCH (09:28)
[2017-07-13] MEDS: DOCUSATE SODIUM 100 MG CAPSULE PO SCH ×2 (09:28→16:17)
[2017-07-13] MEDS: ASCORBIC ACID 500 MG TABLET PO SCH (09:28)
[2017-07-13] MEDS: CIPROFLOXACIN HCL 0.3% 5 ML BOTTLE RIGHTEYE SCH ×4 (09:29→21:39)
[2017-07-13] MEDS: prednisoLONE ACET 1% OPHT DROP 5 ML BOTTLE RIGHTEYE SCH ×4 (09:29→21:40)
[2017-07-13] MEDS: BRIMONIDINE TARTRATE OPHT SOLN 5 ML BOTTLE RIGHTEYE SCH ×3 (09:29→16:19)
[2017-07-13] MEDS: DAKINS QUARTER STRENGTH (0.125%) 480 ML BOTTLE TOP SCH ×2 (09:29→16:20)
[2017-07-13] MEDS: FUROSEMIDE 100 MG/10 ML VIAL IV SCH ×3 (09:33→16:18)
[2017-07-13] MEDS: LINEZOLID 600 MG TABLET PO SCH ×2 (09:33→21:40)
[2017-07-13] MEDS: LEVOTHYROXINE SODIUM 100 MCG TABLET PO SCH (09:33)
[2017-07-13] MEDS: INSULIN GLARGINE, 100 UNIT/ML CARTRIDGE SQ SCH (09:38)
[2017-07-13 12:00] VITALS: BP 108/61
[2017-07-13] MEDS ORDERED: GENTAMICIN 80 MG in IV NS 0.9% 50 ML IV SCH (13:00)
[2017-07-13] MEDS ORDERED: FEE PK DOSING 1 MIN EA MC ONE (13:06)
[2017-07-13] MEDS ORDERED: GENTAMICIN 100 MG in IV D5W 100 ML IV SCH (14:00)
[2017-07-13] MEDS: SOD FERRIC GLUC 125 MG in IV NS 0.9% 100 ML IV SCH (15:02)
--- NOTE | 2017-07-13 17:02 | NUR ---
RECHECKED BLOOD PRESSURE. 116/63
[2017-07-13 20:00] VITALS: BP 106/55
--- NOTE | 2017-07-13 20:05 | NUR ---
RN NOTES ALERT AND ORIENTED, VERBALLY ABLE TO COMMUNICATE NEEDS. SITTING COMFORTABLY IN BED WITH NO RESPIRATORY DISTRESS OR SHORTNESS OF BREATH. BREATHING EVEN AND UNLABORED. ROOM AIR WELL TOLERATED. NO COMPLAINT OF PAIN OR DISCOMFORT. KEPT CLEAN AND DRY. WILL CONTINUE TO MONITOR.
[2017-07-13] MEDS: TAMSULOSIN 0.4 MG CAP.SR.24H PO SCH (21:40)
[2017-07-13] MEDS: GENTAMICIN 140 MG in IV D5W 100 ML IV SCH (21:47)
[2017-07-14] MEDS: BLOOD SUGAR DIAGNOSTIC 1 EACH STRIP IN SCH ×6 (01:01→21:13)
[2017-07-14] MEDS: IPRATROPIUM NEB FS 0.5 MG/2.5 ML AMPUL.NEB NEB SCH ×4 (01:18→19:46)
[2017-07-14] MEDS: ALBUTEROL FS 2.5 MG/3 ML VIAL.NEB NEB SCH ×4 (01:18→19:46)
[2017-07-14 04:00] VITALS: BP 127/65
[2017-07-14] MEDS: INSULIN REGULAR, HUMAN 100 UNIT/ML 3 ML VIAL SQ PRN ×4 (06:18→17:14)
[2017-07-14 06:19] LABS: BASOPHILS % (AUTO) 0.1 % (0.0-2.0); EOSINOPHILS % (AUTO) 1.7 % (0.0-6.0); HEMATOCRIT 24 % (39-51); HEMOGLOBIN 7.8 g/dL (13.5-17.5); LYMPHOCYTES # (AUTO) 1.3 /CMM (0.8-4.8); LYMPHOCYTES % (AUTO) 17.9 % (20.0-44.0); MEAN CORPUSCULAR HGB CONC 32 g/dl (31.0-36.0); MEAN CORPUSCULAR VOLUME 76 fL (80-96); MONOCYTES # (AUTO) 0.5 /CMM (0.1-1.30); MONOCYTES % (AUTO) 7.2 % (2.0-12.0); NEUTROPHILS # (AUTO) 5.5 /CMM (1.8-8.9); NEUTROPHILS % (AUTO) 73.1 % (43.0-81.0); PLATELET COUNT (AUTO) 202 /CMM (150-450); RDW COEFFICIENT OF VARIATION 21.1 (11.5-15.0); RED BLOOD CELL COUNT(AUTO) 3.18 MIL/uL (4.5-6.0); WHITE BLOOD COUNT (AUTO) 7.5 K/uL (4.3-11.0)
[2017-07-14 06:27] LABS: ALANINE AMINOTRANSFERASE 31 U/L (12-78); ALBUMIN 2.8 g/dL (3.4-5.0); ALKALINE PHOSPHATASE 219 U/L (46-116); ASPARTATE AMINOTRANSFERASE 16 U/L (15-37); BILIRUBIN,TOTAL 0.3 mg/dL (0.2-1.0); CALCIUM, SERUM 8.3 mg/dL (8.5-10.1); CARBON DIOXIDE 30 mmol/L (21-32); CHLORIDE 101 mmol/L (98-107); CREATININE 1.5 mg/dL (0.6-1.3); GLUCOSE 180 mg/dL (74-106); MAGNESIUM 2.1 mg/dL (1.8-2.4); PHOSPHORUS 3.5 mg/dL (2.5-4.9); POTASSIUM 4.8 mmol/L (3.5-5.1); SODIUM SERUM 137 mmol/L (136-145); TOTAL PROTEIN, SERUM 7.9 g/dL (6.4-8.2); UREA NITROGEN, BLOOD 33 mg/dL (7-18)
--- NOTE | 2017-07-14 07:00 | NUR ---
RN OPENING NOTES RECEIVE BEDSIDE REPORT FROM FILING AND POLISHING SUPERVISOR RN. PATIENT IS IN BED. ALERT AND ORIENTED X4. NO SOB NO DISTRESS NOTED .WOUND VAC FOR RIGHT FOOT WOUND.ORTH CATHETER IS DRAINING CLEAR YELLOW URINE.SHAVONNE MIDLINE INTACT AND PATENT. DENIED PAIN. BED IS AT LOWEST POSITION, LOCKED AND TWO SIDE RAILS ARE UP FOR SAFETY. CALL LIGHT WITHIN REACH . WILL CONTINUE TO MONITOR PATIENT
[2017-07-14] MEDS: LEVOTHYROXINE SODIUM 100 MCG TABLET PO SCH (07:44)
[2017-07-14 08:00] VITALS: BP 127/62
[2017-07-14] MEDS: ASCORBIC ACID 500 MG TABLET PO SCH (09:09)
[2017-07-14] MEDS: DOCUSATE SODIUM 100 MG CAPSULE PO SCH ×2 (09:09→17:03)
[2017-07-14] MEDS: ZINC SULFATE 220 MG CAPSULE PO SCH (09:09)
[2017-07-14] MEDS: LACTOBACILLUS RHAMNOSUS GG 1 EACH CAP.SPRINK PO SCH ×2 (09:09→17:03)
[2017-07-14] MEDS: LINEZOLID 600 MG TABLET PO SCH ×2 (09:09→20:38)
[2017-07-14] MEDS: AMIODARONE HCL 200 MG TABLET PO SCH (09:10)
[2017-07-14] MEDS: ATORVASTATIN 40 MG TABLET PO SCH (09:10)
[2017-07-14] MEDS: CARVEDILOL 6.25 MG TABLET PO SCH ×2 (09:10→17:03)
[2017-07-14] MEDS: ASPIRIN 81 MG TAB.CHEW PO SCH (09:11)
[2017-07-14] MEDS: prednisoLONE ACET 1% OPHT DROP 5 ML BOTTLE RIGHTEYE SCH ×4 (09:12→21:07)
[2017-07-14] MEDS: CIPROFLOXACIN HCL 0.3% 5 ML BOTTLE RIGHTEYE SCH ×4 (09:12→21:01)
[2017-07-14] MEDS: BRIMONIDINE TARTRATE OPHT SOLN 5 ML BOTTLE RIGHTEYE SCH ×3 (09:12→17:07)
[2017-07-14] MEDS: CLOPIDOGREL BISULFATE 75 MG TABLET PO SCH (09:13)
[2017-07-14] MEDS: DAKINS QUARTER STRENGTH (0.125%) 480 ML BOTTLE TOP SCH ×2 (09:14→17:07)
[2017-07-14] MEDS: INSULIN GLARGINE, 100 UNIT/ML CARTRIDGE SQ SCH (09:20)
[2017-07-14 10:54] VITALS: BP 127/62
[2017-07-14] MEDS: FUROSEMIDE 100 MG/10 ML VIAL IV SCH ×4 (11:36→19:00)
[2017-07-14] MEDS: SOD FERRIC GLUC 125 MG in IV NS 0.9% 100 ML IV SCH (14:59)
[2017-07-14 16:00] VITALS: BP 120/61
--- NOTE | 2017-07-14 19:00 | NUR ---
RN OPENING NOTES BEDSIDE REPORT GIVEN MANAGER MANAGING RN. PATIENT IS IN BED. ALERT AND ORIENTED X4. NO SOB NO DISTRESS NOTED DURING THE CARE.WOUND VAC FOR RIGHT FOOT WOUND.ROTH CATHETER IS DRAINING CLEAR YELLOW URINE.SHAVONNE MIDLINE INTACT AND PATENT. DENIED PAIN. BED IS AT LOWEST POSITION, LOCKED AND TWO SIDE RAILS ARE UP FOR SAFETY. CALL LIGHT WITHIN REACH . WILL ENDORSE TO PM NURSE FOR CRYSTAL.
[2017-07-14 20:00] VITALS: BP 114/62
[2017-07-14] MEDS: GENTAMICIN 140 MG in IV D5W 100 ML IV SCH (20:38)
[2017-07-14] MEDS ORDERED: FUROSEMIDE 100 MG/10 ML VIAL IV SCH (21:00)
[2017-07-14] MEDS: TAMSULOSIN 0.4 MG CAP.SR.24H PO SCH (21:06)
--- NOTE | 2017-07-14 21:15 | NUR ---
MS1/RN LASIX DUE AT 1900 NOT GIVEN DUE TO TASK DUPLICATION.
--- NOTE | 2017-07-14 23:18 | NUR ---
RN NOTES PATIENT REQUESTED TO REMOVE BIPAP; ONLY TOLERATED FOR ABOUT 20 MINS. LILIAM, RT MADE AWARE. PRIMARY RN, KARIME CHEN
[2017-07-15] MEDS: BLOOD SUGAR DIAGNOSTIC 1 EACH STRIP IN SCH ×6 (01:06→20:33)
[2017-07-15] MEDS: INSULIN REGULAR, HUMAN 100 UNIT/ML 3 ML VIAL SQ PRN ×6 (01:08→20:36)
[2017-07-15] MEDS: ALBUTEROL FS 2.5 MG/3 ML VIAL.NEB NEB SCH ×4 (01:20→19:54)
[2017-07-15] MEDS: IPRATROPIUM NEB FS 0.5 MG/2.5 ML AMPUL.NEB NEB SCH ×4 (01:20→19:54)
[2017-07-15 04:00] VITALS: BP 110/64
[2017-07-15 06:27] LABS: ALANINE AMINOTRANSFERASE 27 U/L (12-78); ALBUMIN 2.9 g/dL (3.4-5.0); ALKALINE PHOSPHATASE 213 U/L (46-116); ASPARTATE AMINOTRANSFERASE 17 U/L (15-37); BILIRUBIN,TOTAL 0.5 mg/dL (0.2-1.0); CALCIUM, SERUM 8.7 mg/dL (8.5-10.1); CARBON DIOXIDE 31 mmol/L (21-32); CHLORIDE 100 mmol/L (98-107); CREATININE 1.6 mg/dL (0.6-1.3); GLUCOSE 144 mg/dL (74-106); MAGNESIUM 2.9 mg/dL (1.8-2.4); PHOSPHORUS 4.1 mg/dL (2.5-4.9); POTASSIUM 4.6 mmol/L (3.5-5.1); SODIUM SERUM 137 mmol/L (136-145); TOTAL PROTEIN, SERUM 8.2 g/dL (6.4-8.2); UREA NITROGEN, BLOOD 34 mg/dL (7-18)
--- NOTE | 2017-07-15 06:58 | NUR ---
MS1/RN PATIENT IS AWAKE AT THIS TIME, COMFORTABLE, NO C/O PAIN, NO DISTRESS NOTED, ALL NEEDS ATTENDED AT THIS TIME, WILL CONTINUE TO MONITOR.
--- NOTE | 2017-07-15 07:15 | NUR ---
ms rn initial notes Received patient sitting upright in bed, on room air and tolerated well. Alert and oriented x 4, verbally responsive and able to make needs known. Wound vac in placed with serosanguineous output. IV intact and patent HL only. Price in placed attached to drainage bag with no sediment noted. No complaint of pain or discomfort. Call light with in patient reach, will continue to monitor accordingly.
[2017-07-15 08:00] VITALS: BP 125/65
[2017-07-15] MEDS: AMIODARONE HCL 200 MG TABLET PO SCH (08:15)
[2017-07-15] MEDS: DOCUSATE SODIUM 100 MG CAPSULE PO SCH ×2 (08:15→16:35)
[2017-07-15] MEDS: ZINC SULFATE 220 MG CAPSULE PO SCH (08:15)
[2017-07-15] MEDS: CARVEDILOL 6.25 MG TABLET PO SCH ×2 (08:15→16:36)
[2017-07-15] MEDS: LINEZOLID 600 MG TABLET PO SCH ×2 (08:15→20:33)
[2017-07-15] MEDS: ATORVASTATIN 40 MG TABLET PO SCH (08:15)
[2017-07-15] MEDS: ASPIRIN 81 MG TAB.CHEW PO SCH (08:16)
[2017-07-15] MEDS: LACTOBACILLUS RHAMNOSUS GG 1 EACH CAP.SPRINK PO SCH ×2 (08:16→16:35)
[2017-07-15] MEDS: LEVOTHYROXINE SODIUM 100 MCG TABLET PO SCH (08:16)
[2017-07-15] MEDS: ASCORBIC ACID 500 MG TABLET PO SCH (08:16)
[2017-07-15] MEDS: CLOPIDOGREL BISULFATE 75 MG TABLET PO SCH (08:16)
[2017-07-15] MEDS: CIPROFLOXACIN HCL 0.3% 5 ML BOTTLE RIGHTEYE SCH ×4 (08:20→20:34)
[2017-07-15] MEDS: BRIMONIDINE TARTRATE OPHT SOLN 5 ML BOTTLE RIGHTEYE SCH ×3 (08:21→16:40)
[2017-07-15] MEDS: prednisoLONE ACET 1% OPHT DROP 5 ML BOTTLE RIGHTEYE SCH ×4 (08:21→20:34)
[2017-07-15] MEDS: DAKINS QUARTER STRENGTH (0.125%) 480 ML BOTTLE TOP SCH ×2 (08:23→16:41)
[2017-07-15] MEDS: INSULIN GLARGINE, 100 UNIT/ML CARTRIDGE SQ SCH (08:23)
[2017-07-15] MEDS: FUROSEMIDE 100 MG/10 ML VIAL IV SCH ×3 (10:36→17:42)
[2017-07-15 12:00] VITALS: BP 120/65
[2017-07-15] MEDS: SOD FERRIC GLUC 125 MG in IV NS 0.9% 100 ML IV SCH (13:53)
[2017-07-15 16:00] VITALS: BP 108/59
--- NOTE | 2017-07-15 19:19 | NUR ---
ms rn closing notes All needs provided, attended, and anticipated. Patient is in stable condition. endorsed to next shift RN to give gentamycin atb IV after blood draw and on time and to continue care. Call light with in patient reach.
[2017-07-15] MEDS: GENTAMICIN 140 MG in IV D5W 100 ML IV SCH (19:47)
[2017-07-15 20:00] VITALS: BP 133/80
[2017-07-15] MEDS: TAMSULOSIN 0.4 MG CAP.SR.24H PO SCH (21:06)
[2017-07-15] MEDS: HYDROCODONE/APAP 5/325MG 1 EACH TABLET PO PRN (21:25)
[2017-07-16] MEDS: BLOOD SUGAR DIAGNOSTIC 1 EACH STRIP IN SCH ×6 (01:10→21:11)
[2017-07-16] MEDS: INSULIN REGULAR, HUMAN 100 UNIT/ML 3 ML VIAL SQ PRN ×6 (01:11→21:10)
[2017-07-16] MEDS: IPRATROPIUM NEB FS 0.5 MG/2.5 ML AMPUL.NEB NEB SCH ×4 (01:22→20:03)
[2017-07-16] MEDS: ALBUTEROL FS 2.5 MG/3 ML VIAL.NEB NEB SCH ×4 (01:22→20:03)
[2017-07-16 04:00] VITALS: BP 143/66
[2017-07-16 05:13] LABS: EOSINOPHILS % (AUTO) 3.4 % (0.0-6.0); HEMATOCRIT 27 % (39-51); HEMOGLOBIN 8.5 g/dL (13.5-17.5); LYMPHOCYTES # (AUTO) 1.5 /CMM (0.8-4.8); LYMPHOCYTES % (AUTO) 18.2 % (20.0-44.0); MEAN CORPUSCULAR HGB CONC 32 g/dl (31.0-36.0); MEAN CORPUSCULAR VOLUME 76 fL (80-96); MONOCYTES # (AUTO) 0.5 /CMM (0.1-1.30); MONOCYTES % (AUTO) 5.5 % (2.0-12.0); NEUTROPHILS # (AUTO) 6.1 /CMM (1.8-8.9); NEUTROPHILS % (AUTO) 72.9 % (43.0-81.0); PLATELET COUNT (AUTO) 250 /CMM (150-450); RDW COEFFICIENT OF VARIATION 20.6 (11.5-15.0); WHITE BLOOD COUNT (AUTO) 8.3 K/uL (4.3-11.0)
[2017-07-16 05:37] LABS: ALANINE AMINOTRANSFERASE 23 U/L (12-78); ALBUMIN 2.7 g/dL (3.4-5.0); ALKALINE PHOSPHATASE 203 U/L (46-116); ASPARTATE AMINOTRANSFERASE 18 U/L (15-37); BILIRUBIN,TOTAL 0.3 mg/dL (0.2-1.0); CALCIUM, SERUM 8.3 mg/dL (8.5-10.1); CARBON DIOXIDE 31 mmol/L (21-32); CHLORIDE 100 mmol/L (98-107); CREATININE 1.8 mg/dL (0.6-1.3); GLUCOSE 171 mg/dL (74-106); MAGNESIUM 1.8 mg/dL (1.8-2.4); PHOSPHORUS 4.5 mg/dL (2.5-4.9); POTASSIUM 4.3 mmol/L (3.5-5.1); SODIUM SERUM 138 mmol/L (136-145); TOTAL PROTEIN, SERUM 7.9 g/dL (6.4-8.2); UREA NITROGEN, BLOOD 38 mg/dL (7-18)
--- NOTE | 2017-07-16 07:10 | NUR ---
MS RN OPENING NOTES RECEIVED PT IN BED, ALERT AND VERBALLY RESPONSIVE, IN NO SIGNS OF RESPIRATORY DISTRESS, NO C/O PAIN, AFEBRILE, WITH SHAVONNE MIDLINE, INTACT AND PATENT, FC INTACT AND DRAINING BY GRAVITY , CLEAR YELLOW URINE, WITH RIGHT FOOT WOUND CONNECTED TO WOUND VAC, DRESSING CLEAN AND DRY, BED IN LOW AND LOCKED POSITION, CALL LIGHT WITHIN REACH, SAFETY PRECAUTION OBSERVED, WILL CONTINUE TO MONITOR
[2017-07-16] MEDS: INSULIN GLARGINE, 100 UNIT/ML CARTRIDGE SQ SCH (08:17)
[2017-07-16] MEDS: ASPIRIN 81 MG TAB.CHEW PO SCH (08:19)
[2017-07-16] MEDS: LEVOTHYROXINE SODIUM 100 MCG TABLET PO SCH (08:19)
[2017-07-16] MEDS: DOCUSATE SODIUM 100 MG CAPSULE PO SCH ×2 (08:19→16:29)
[2017-07-16] MEDS: AMIODARONE HCL 200 MG TABLET PO SCH (08:20)
[2017-07-16] MEDS: CLOPIDOGREL BISULFATE 75 MG TABLET PO SCH (08:21)
[2017-07-16] MEDS: ATORVASTATIN 40 MG TABLET PO SCH (08:21)
[2017-07-16] MEDS: CARVEDILOL 6.25 MG TABLET PO SCH ×2 (08:21→16:31)
[2017-07-16] MEDS: ASCORBIC ACID 500 MG TABLET PO SCH (08:22)
[2017-07-16] MEDS: LACTOBACILLUS RHAMNOSUS GG 1 EACH CAP.SPRINK PO SCH ×2 (08:22→16:29)
[2017-07-16] MEDS: BRIMONIDINE TARTRATE OPHT SOLN 5 ML BOTTLE RIGHTEYE SCH ×3 (08:23→16:31)
[2017-07-16] MEDS: prednisoLONE ACET 1% OPHT DROP 5 ML BOTTLE RIGHTEYE SCH ×4 (08:23→20:57)
[2017-07-16] MEDS: CIPROFLOXACIN HCL 0.3% 5 ML BOTTLE RIGHTEYE SCH ×4 (08:23→20:57)
[2017-07-16] MEDS: LINEZOLID 600 MG TABLET PO SCH ×2 (08:31→20:56)
[2017-07-16] MEDS: ZINC SULFATE 220 MG CAPSULE PO SCH (08:31)
[2017-07-16] MEDS: DAKINS QUARTER STRENGTH (0.125%) 480 ML BOTTLE TOP SCH ×2 (08:34→16:37)
--- NOTE | 2017-07-16 10:20 | NUR ---
MS RN NOTES SEEN BY DR. MARTIN, WITH ORDER FOR WOUND VAC THERAPY, INFORMED MD THAT WOUND NURSE WILL BE HERE TOMORROW, PER MD OK TO DO WOUND THERAPY TOMORROW WITH THE WOUND THE NURSE
--- NOTE | 2017-07-16 11:00 | NUR ---
MS RN NOTES SEEN BY DR. REYNA, NOTIFIED WITH WEIGHT WITH NEW ORDERS MADE
[2017-07-16] MEDS: FUROSEMIDE 80 MG TABLET PO SCH ×2 (11:40→16:29)
[2017-07-16 12:00] VITALS: BP 133/92
[2017-07-16] MEDS: SOD FERRIC GLUC 125 MG in IV NS 0.9% 100 ML IV SCH (14:29)
--- NOTE | 2017-07-16 19:23 | NUR ---
MS RN CLOSING NOTES PT IN STABLE CONDITION, NO ACUTE CHANGES NOTED WITHIN THE SHIFT, ALL SAFETY MEASURES OBSERVED AT ALL TIME, ALL NEEDS ATTENDED, CALL LIGHT WITHIN REACH, ENDORSE TO OBSERVER HELPER NURSE FOR CONTINUITY OF CARE
--- NOTE | 2017-07-16 19:30 | NUR ---
MS RN OPENING NOTES RECEIVED PT IN BED, ALERT AND ORIENTED, BREATHING EVEN AND UNLABORED, NO SOB/ACUTE DISTRESS NOTED AT THIS TIME, NO C/O PAIN, AFEBRILE, WITH SHAVONNE MIDLINE, INTACT AND PATENT, FC INTACT AND DRAINING BY GRAVITY , YELLOW URINE, WITH RIGHT FOOT WOUND CONNECTED TO WOUND VAC, DRESSING CLEAN AND DRY, NO BLEEDING NOTED, BED IN LOW AND LOCKED POSITION, CALL LIGHT WITHIN REACH, BED IN PROPER POSITION, WILL CONTINUE TO MONITOR
[2017-07-16 20:00] VITALS: BP 105/56
[2017-07-16] MEDS: GENTAMICIN 120 MG in IV D5W 100 ML IV SCH (20:56)
[2017-07-16] MEDS: TAMSULOSIN 0.4 MG CAP.SR.24H PO SCH (21:12)
[2017-07-17] MEDS: INSULIN REGULAR, HUMAN 100 UNIT/ML 3 ML VIAL SQ PRN ×6 (00:46→16:23)
[2017-07-17] MEDS: BLOOD SUGAR DIAGNOSTIC 1 EACH STRIP IN SCH ×6 (00:50→16:22)
[2017-07-17] MEDS: ALBUTEROL FS 2.5 MG/3 ML VIAL.NEB NEB SCH ×3 (01:26→12:53)
[2017-07-17] MEDS: IPRATROPIUM NEB FS 0.5 MG/2.5 ML AMPUL.NEB NEB SCH ×3 (01:26→12:52)
[2017-07-17 04:00] VITALS: BP_SYST 108; BP_SYST 110; BP_DIAS 61; BP_DIAS 66
[2017-07-17 06:15] LABS: HEMATOCRIT 27 % (39-51); HEMOGLOBIN 8.8 g/dL (13.5-17.5); MEAN CORPUSCULAR HGB CONC 32 g/dl (31.0-36.0); MEAN CORPUSCULAR VOLUME 76 fL (80-96); PLATELET COUNT (AUTO) 261 /CMM (150-450); RDW COEFFICIENT OF VARIATION 20.9 (11.5-15.0); RED BLOOD CELL COUNT(AUTO) 3.61 MIL/uL (4.5-6.0); WHITE BLOOD COUNT (AUTO) 8.2 K/uL (4.3-11.0)
--- NOTE | 2017-07-17 06:38 | NUR ---
MS RN CLOSING NOTES, PATIENT IN BED, ALERT AND ORIENTED, BREATHING EVEN AND UNLABORED, NO SOB/ACUTE DISTRESS NOTED AT THIS TIME, NO C/O PAIN, AT THIS TIME, WITH SHAVONNE MIDLINE, INTACT AND PATENT, FC INTACT AND DRAINING BY GRAVITY YELLOW URINE, WITH RIGHT FOOT WOUND CONNECTED TO WOUND VAC, DRESSING CLEAN AND DRY, NO BLEEDING NOTED, NO SIGNIFICANT CHANGE IN CONDITION THROUGHOUT THE NIGHT, BED IN LOW AND LOCKED POSITION, CALL LIGHT WITHIN REACH, BED IN PROPER POSITION, WILL ENDORSE TO ONCOMING NURSE.
[2017-07-17 06:50] LABS: CALCIUM, SERUM 8.1 mg/dL (8.5-10.1); CARBON DIOXIDE 29 mmol/L (21-32); CHLORIDE 100 mmol/L (98-107); CREATININE 1.6 mg/dL (0.6-1.3); GLUCOSE 104 mg/dL (74-106); MAGNESIUM 1.8 mg/dL (1.8-2.4); PHOSPHORUS 4.2 mg/dL (2.5-4.9); POTASSIUM 4.2 mmol/L (3.5-5.1); SODIUM SERUM 137 mmol/L (136-145); UREA NITROGEN, BLOOD 41 mg/dL (7-18)
--- NOTE | 2017-07-17 07:12 | NUR ---
RN INITIAL NOTES: Rec'd pt awake on bed, sitting on the bed, not in any distress, A/O x 4. On NC/2lpm, denies SOB & verbalizing he doesn't need O2 support as he was doing okay w/ room air. Has SHAVONNE midline, SL, patent & intact w/ no s/sx of infection/infiltration noted. Has FC draining to BSB. R foot has wound vac ongoing at 125 mmHg, patent & intact w/ clean & dry dressing. Provided comfort & safety measures. Bed kept low & in locked pos. Call light placed w/in reach. Will continue to monitor & attend pt needs.
[2017-07-17 08:00] VITALS: BP 106/70
[2017-07-17] MEDS: LEVOTHYROXINE SODIUM 100 MCG TABLET PO SCH (08:22)
[2017-07-17] MEDS: ZINC SULFATE 220 MG CAPSULE PO SCH (08:23)
[2017-07-17] MEDS: ASCORBIC ACID 500 MG TABLET PO SCH (08:23)
[2017-07-17] MEDS: AMIODARONE HCL 200 MG TABLET PO SCH (08:23)
[2017-07-17] MEDS: CLOPIDOGREL BISULFATE 75 MG TABLET PO SCH (08:23)
[2017-07-17] MEDS: FUROSEMIDE 80 MG TABLET PO SCH ×2 (08:24→16:14)
[2017-07-17] MEDS: LACTOBACILLUS RHAMNOSUS GG 1 EACH CAP.SPRINK PO SCH ×2 (08:24→16:14)
[2017-07-17] MEDS: CARVEDILOL 6.25 MG TABLET PO SCH ×2 (08:24→16:16)
[2017-07-17] MEDS: ATORVASTATIN 40 MG TABLET PO SCH (08:24)
[2017-07-17] MEDS: ASPIRIN 81 MG TAB.CHEW PO SCH (08:24)
[2017-07-17] MEDS: LINEZOLID 600 MG TABLET PO SCH (08:25)
[2017-07-17] MEDS: DOCUSATE SODIUM 100 MG CAPSULE PO SCH ×2 (08:25→16:12)
[2017-07-17] MEDS: prednisoLONE ACET 1% OPHT DROP 5 ML BOTTLE RIGHTEYE SCH ×3 (08:26→16:14)
[2017-07-17] MEDS: BRIMONIDINE TARTRATE OPHT SOLN 5 ML BOTTLE RIGHTEYE SCH ×3 (08:26→16:14)
[2017-07-17] MEDS: CIPROFLOXACIN HCL 0.3% 5 ML BOTTLE RIGHTEYE SCH ×3 (08:26→16:14)
[2017-07-17] MEDS: DAKINS QUARTER STRENGTH (0.125%) 480 ML BOTTLE TOP SCH ×2 (08:31→16:17)
[2017-07-17] MEDS: INSULIN GLARGINE, 100 UNIT/ML CARTRIDGE SQ SCH (08:33)
[2017-07-17 09:24] LABS: EOSINOPHILS % (MANUAL) 6 % (0-4); LYMPHOCYTES % (MANUAL) 16 % (16-48); MONOCYTES % (MANUAL) 5 % (0-11.0); NEUTROPHILS % (MANUAL) 73 (42-76)
[2017-07-17] MEDS ORDERED: FURO80TA3 PO (11:40)
[2017-07-17] MEDS ORDERED: LINE600T PO ×2 (11:40→11:47)
[2017-07-17] MEDS ORDERED: AMIO200T7 PO (11:40)
[2017-07-17] MEDS ORDERED: RXGEN XX (11:40)
[2017-07-17] MEDS: SOD FERRIC GLUC 125 MG in IV NS 0.9% 100 ML IV SCH (14:34)
--- NOTE | 2017-07-17 15:13 | NUR ---
RN NOTES: Pt seen & examined by Dr. Cordova, wound dressing changed, applied new wound vac. Pt tolerated well the procedure.
[2017-07-17 16:00] VITALS: BP 123/63
[2017-07-17] MEDS: GENTAMICIN 120 MG in IV D5W 100 ML IV SCH (16:14)
[2017-07-17 16:16] VITALS: BP 123/63
--- NOTE | 2017-07-17 19:10 | NUR ---
ASSOCIATE CURATOR NOTES: Pt DC'd to home w/ HH as ordered. DC documents explained & provided to the pt w/ verbalization of understanding. Pt remains A/O x 4, not in any distress. SHAVONNE midline, kept patent & intact for IV abx to be continued on his home. Wound vac on the R foot kept C/D/I. All wound care supplies sent w/ him. Wound photos taken & placed in the chart. DC instructions also explained to pt's fiance over the phone. No concern identified during DC. Pt left facility in stable condition accompanied by crane follower.
== END 2017-07-17 19:24 | disposition home health service (06) | DRG 853 ==
LOC: ER 13:11 → TELE1 16:13 → ICU 17:32 → TELE-TD 07-12 16:28 → TELE1 07-12 17:31 → MEDSG1 07-13 09:48
PROVIDERS: ADMIT Internal Medicine; ATTEND Internal Medicine
PROC: 5A09357 Assistance with Respiratory Ventilation, Less than 24 Consecutive Hours, Continuous Positive Airway Pressure (ICD-10-PCS; 2017-07-10)
PROC: 05H633Z Insertion of Infusion Device into Left Subclavian Vein, Percutaneous Approach (ICD-10-PCS; 2017-07-11)
PROC: 02HV33Z Insertion of Infusion Device into Superior Vena Cava, Percutaneous Approach (ICD-10-PCS; 2017-07-11)
PROC: B548ZZA Ultrasonography of Superior Vena Cava, Guidance (ICD-10-PCS; 2017-07-11)
PROC: 0MBS0ZZ Excision of Right Foot Bursa and Ligament, Open Approach (ICD-10-PCS; principal; 2017-07-17)
DX: A41.9 Sepsis, unspecified organism (principal); J96.01 Acute respiratory failure with hypoxia; R65.21 Severe sepsis with septic shock; I21.A1 Myocardial infarction type 2; E44.0 Moderate protein-calorie malnutrition; N17.9 Acute kidney failure, unspecified; J18.9 Pneumonia, unspecified organism; E11.22 Type 2 diabetes mellitus with diabetic chronic kidney disease; L03.115 Cellulitis of right lower limb; E87.2 Acidosis; I13.0 Hypertensive heart and chronic kidney disease with heart failure and stage 1 through stage 4 chronic kidney disease, or unspecified chronic kidney disease; E66.2 Morbid (severe) obesity with alveolar hypoventilation; Z68.42 Body mass index [BMI] 45.0-49.9, adult; N39.0 Urinary tract infection, site not specified; M86.671 Other chronic osteomyelitis, right ankle and foot; I50.32 Chronic diastolic (congestive) heart failure; E11.51 Type 2 diabetes mellitus with diabetic peripheral angiopathy without gangrene; N18.9 Chronic kidney disease, unspecified; Z86.73 Personal history of transient ischemic attack (TIA), and cerebral infarction without residual deficits; K21.9 Gastro-esophageal reflux disease without esophagitis; I25.10 Atherosclerotic heart disease of native coronary artery without angina pectoris; E78.5 Hyperlipidemia, unspecified; E03.9 Hypothyroidism, unspecified; D63.8 Anemia in other chronic diseases classified elsewhere; E11.65 Type 2 diabetes mellitus with hyperglycemia; I48.2 Chronic atrial fibrillation; J44.9 Chronic obstructive pulmonary disease, unspecified; E88.09 Other disorders of plasma-protein metabolism, not elsewhere classified; Z91.19 Patient's noncompliance with other medical treatment and regimen; Z95.810 Presence of automatic (implantable) cardiac defibrillator; Z89.421 Acquired absence of other right toe(s); Z89.612 Acquired absence of left leg above knee; E11.69 Type 2 diabetes mellitus with other specified complication; Z79.4 Long term (current) use of insulin; E11.621 Type 2 diabetes mellitus with foot ulcer; L97.519 Non-pressure chronic ulcer of other part of right foot with unspecified severity; E11.42 Type 2 diabetes mellitus with diabetic polyneuropathy; Z72.0 Tobacco use; Z95.1 Presence of aortocoronary bypass graft; Z95.5 Presence of coronary angioplasty implant and graft; B96.89 Other specified bacterial agents as the cause of diseases classified elsewhere
CPT/HCPCS: 36415; 36569; 36600; 71045-TC; 76770-TC; 80048-TC; 80053-TC; 80076-TC; 80170-TC; 81000-TC; 82306; 82570-TC; 82728-TC; 82746; 82803-TC; 82962-TC; 83540-TC; 83605-TC; 83735-TC; 84100-TC; 84439-TC; 84443-TC; 84484-TC; 85025-TC; 85730-TC; 87040-TC; 87070-TC; 87081-TC; 87086-TC; 87186-TC; 94799-TC; A4216; A4606; A6253; A6402; A6403; C1751; J1580; J1644; J1815; J1940; J2020; J2185; J2543; J2916; J3370; J3490; J7030; J7040; J7050; J7060; Z7610

== ENCOUNTER 2017-07-20 12:05 | Outpatient (CLI) | payer MEDICARE, BC ==
[~2017-07-20 12:05] MED LIST changes: -BUME2TAB3 PO; -CEFT1FRO2 IV; -DAPT500V2 IV; +FURO80TA3 PO; +LINE600T PO; -LOSA25TA13 PO; -METO2.5T7 PO; +RXGEN XX; -SPIR25TA6 PO
== END 2017-07-20 23:59 | disposition home health service (06) ==
LOC: WOU 12:05
PROVIDERS: ATTEND Podiatrist Foot & Ankle Surgery
DX: E11.621 Type 2 diabetes mellitus with foot ulcer (principal); L97.415 Non-pressure chronic ulcer of right heel and midfoot with muscle involvement without evidence of necrosis; L97.512 Non-pressure chronic ulcer of other part of right foot with fat layer exposed; E11.42 Type 2 diabetes mellitus with diabetic polyneuropathy; Z99.3 Dependence on wheelchair; Z89.612 Acquired absence of left leg above knee; E11.69 Type 2 diabetes mellitus with other specified complication; M86.8X7 Other osteomyelitis, ankle and foot; E66.01 Morbid (severe) obesity due to excess calories; Z68.41 Body mass index [BMI] 40.0-44.9, adult; E11.51 Type 2 diabetes mellitus with diabetic peripheral angiopathy without gangrene
CPT/HCPCS: 11043; 97605-TC; A6209; A6402

== ENCOUNTER 2017-07-24 11:07 | Outpatient (CLI) | payer MEDICARE, BC | END 2017-07-24 23:59 | disposition home health service (06) | LOC: WOU 11:07 | PROVIDERS: ATTEND Podiatrist Foot & Ankle Surgery | DX: E11.621 Type 2 diabetes mellitus with foot ulcer (principal); L97.415 Non-pressure chronic ulcer of right heel and midfoot with muscle involvement without evidence of necrosis; L97.511 Non-pressure chronic ulcer of other part of right foot limited to breakdown of skin; E11.42 Type 2 diabetes mellitus with diabetic polyneuropathy; Z89.612 Acquired absence of left leg above knee; E11.51 Type 2 diabetes mellitus with diabetic peripheral angiopathy without gangrene; Z99.3 Dependence on wheelchair | CPT/HCPCS: 11043; 97605-TC; A6209; A6402 ==

== ENCOUNTER 2017-07-25 10:42 | Outpatient (CLI) | payer MEDICARE, BC | END 2017-07-25 23:59 | disposition home or self-care (01) | LOC: WOU 10:42 | PROVIDERS: ATTEND Nurse Practitioner Acute Care | PROC: 05H533Z Insertion of Infusion Device into Right Subclavian Vein, Percutaneous Approach (ICD-10-PCS; principal; 2017-07-25) | DX: T82.514A Breakdown (mechanical) of infusion catheter, initial encounter (principal) | CPT/HCPCS: 36569 ==

== ENCOUNTER 2017-07-27 12:21 | Outpatient (CLI) | payer MEDICARE, BC ==
[2017-07-27] MEDS ORDERED: CELLULOSE,OXIDIZED 1 EA PACK MC ONE (12:22)
== END 2017-07-27 23:59 | disposition home health service (06) ==
LOC: WOU 12:21
PROVIDERS: ATTEND Podiatrist Foot & Ankle Surgery
DX: E11.621 Type 2 diabetes mellitus with foot ulcer (principal); L97.416 Non-pressure chronic ulcer of right heel and midfoot with bone involvement without evidence of necrosis; L97.512 Non-pressure chronic ulcer of other part of right foot with fat layer exposed; L97.311 Non-pressure chronic ulcer of right ankle limited to breakdown of skin; E11.622 Type 2 diabetes mellitus with other skin ulcer; Z89.612 Acquired absence of left leg above knee; E11.51 Type 2 diabetes mellitus with diabetic peripheral angiopathy without gangrene; Z99.3 Dependence on wheelchair; G47.30 Sleep apnea, unspecified; E11.42 Type 2 diabetes mellitus with diabetic polyneuropathy; R60.0 Localized edema; R03.1 Nonspecific low blood-pressure reading; Z79.4 Long term (current) use of insulin; Z79.899 Other long term (current) drug therapy; Z79.82 Long term (current) use of aspirin
CPT/HCPCS: 11043; A6253; A6402; A6407

== ENCOUNTER 2017-09-19 12:47 | Outpatient (CLI) | payer MEDICARE, BC | END 2017-09-19 23:59 | disposition home health service (06) | LOC: WOU 12:47 | PROVIDERS: ATTEND Podiatrist Foot & Ankle Surgery | DX: E11.621 Type 2 diabetes mellitus with foot ulcer (principal); L97.416 Non-pressure chronic ulcer of right heel and midfoot with bone involvement without evidence of necrosis; I87.2 Venous insufficiency (chronic) (peripheral); L97.818 Non-pressure chronic ulcer of other part of right lower leg with other specified severity; F17.210 Nicotine dependence, cigarettes, uncomplicated; Z89.612 Acquired absence of left leg above knee; E11.51 Type 2 diabetes mellitus with diabetic peripheral angiopathy without gangrene; Z99.3 Dependence on wheelchair; E05.00 Thyrotoxicosis with diffuse goiter without thyrotoxic crisis or storm; I25.10 Atherosclerotic heart disease of native coronary artery without angina pectoris; Z95.5 Presence of coronary angioplasty implant and graft; E11.42 Type 2 diabetes mellitus with diabetic polyneuropathy; I89.0 Lymphedema, not elsewhere classified; E11.22 Type 2 diabetes mellitus with diabetic chronic kidney disease; N18.6 End stage renal disease; Z99.2 Dependence on renal dialysis; Z79.4 Long term (current) use of insulin | CPT/HCPCS: 11044; 11047; 17250; 87070; 87075; A6402; Z7610 ==

== ENCOUNTER 2017-09-26 12:25 | Outpatient (CLI) | payer MEDICARE, BC | END 2017-09-26 23:59 | disposition home health service (06) | LOC: WOU 12:25 | PROVIDERS: ATTEND Podiatrist Foot & Ankle Surgery | DX: E11.621 Type 2 diabetes mellitus with foot ulcer (principal); L97.414 Non-pressure chronic ulcer of right heel and midfoot with necrosis of bone; Z79.4 Long term (current) use of insulin; Z79.899 Other long term (current) drug therapy; Z89.612 Acquired absence of left leg above knee; E11.51 Type 2 diabetes mellitus with diabetic peripheral angiopathy without gangrene; G47.30 Sleep apnea, unspecified; Z99.3 Dependence on wheelchair; E66.9 Obesity, unspecified; Z68.41 Body mass index [BMI] 40.0-44.9, adult; Z71.3 Dietary counseling and surveillance | CPT/HCPCS: 11044; 11047; A6402; Z7610 ==

== ENCOUNTER 2017-10-03 12:30 | Outpatient (CLI) | payer MEDICARE, BC ==
[2017-10-03] MEDS ORDERED: CELLULOSE,OXIDIZED 1 EA PACK MC ONE (13:30)
== END 2017-10-03 23:59 | disposition home or self-care (01) ==
LOC: WOU 12:30
PROVIDERS: ATTEND Podiatrist Foot & Ankle Surgery
DX: E11.621 Type 2 diabetes mellitus with foot ulcer (principal); L97.414 Non-pressure chronic ulcer of right heel and midfoot with necrosis of bone; E11.42 Type 2 diabetes mellitus with diabetic polyneuropathy; E11.22 Type 2 diabetes mellitus with diabetic chronic kidney disease; N18.6 End stage renal disease; Z99.2 Dependence on renal dialysis; Z79.4 Long term (current) use of insulin; Z89.612 Acquired absence of left leg above knee; E11.51 Type 2 diabetes mellitus with diabetic peripheral angiopathy without gangrene; G47.30 Sleep apnea, unspecified
CPT/HCPCS: 11044; 11047; A6402; Z7610

== ENCOUNTER 2017-10-08 16:10 | Inpatient (IN) | payer MEDICARE, BC, MEDICAID ==
[~2017-10-08] VITALS: Ht 170.2 cm; Wt 128.4 kg
--- NOTE | 2017-10-08 16:20 | NUR ---
IV ACCESS STARTED. BLOOD DRAWN FOR LABS. MEDICATED ORDERED.
[2017-10-08 16:54] LABS: BASOPHILS % (AUTO) 0.1 % (0.0-2.0); EOSINOPHILS % (AUTO) 0.2 % (0.0-6.0); HEMATOCRIT 28 % (39-51); HEMOGLOBIN 8.8 g/dL (13.5-17.5); LYMPHOCYTES # (AUTO) 0.3 /CMM (0.8-4.8); LYMPHOCYTES % (AUTO) 1.5 % (20.0-44.0); MEAN CORPUSCULAR HEMOGLOBIN 25 PG (26.0-33.0); MEAN CORPUSCULAR HGB CONC 32 g/dl (31.0-36.0); MEAN CORPUSCULAR VOLUME 78 fL (80-96); MONOCYTES # (AUTO) 0.5 /CMM (0.1-1.30); MONOCYTES % (AUTO) 2.8 % (2.0-12.0); NEUTROPHILS # (AUTO) 15.9 /CMM (1.8-8.9); NEUTROPHILS % (AUTO) 95.4 % (43.0-81.0); PLATELET COUNT (AUTO) 299 /CMM (150-450); RDW COEFFICIENT OF VARIATION 19.1 (11.5-15.0); RED BLOOD CELL COUNT(AUTO) 3.54 MIL/uL (4.5-6.0); WHITE BLOOD COUNT (AUTO) 16.7 K/uL (4.3-11.0)
[2017-10-08] MEDS ORDERED: PIPERACILLIN /TAZOBACTAM 3.375 G in IV D5W 50 ML IV ONE (17:00)
[2017-10-08] MEDS ORDERED: VANCOMYCIN 1 GM in IV D5W 250 ML IV ONE (17:00)
[2017-10-08] MEDS ORDERED: IV NS 0.9% 1,000 ML IV PRN ×2 (17:00→22:49)
[2017-10-08 17:07] LABS: ALANINE AMINOTRANSFERASE 20 U/L (12-78); ALBUMIN 2.4 g/dL (3.4-5.0); ALKALINE PHOSPHATASE 167 U/L (46-116); ASPARTATE AMINOTRANSFERASE 28 U/L (15-37); BILIRUBIN,DIRECT 0.3 mg/dL (0.0-0.2); BILIRUBIN,TOTAL 0.7 mg/dL (0.2-1.0); CARBON DIOXIDE 29 mmol/L (21-32); CHLORIDE 95 mmol/L (98-107); CREATININE 3.4 mg/dL (0.6-1.3); GLUCOSE 212 mg/dL (74-106); POTASSIUM 4.4 mmol/L (3.5-5.1); SODIUM SERUM 129 mmol/L (136-145); TOTAL PROTEIN, SERUM 7.8 g/dL (6.4-8.2); UREA NITROGEN, BLOOD 43 mg/dL (7-18)
[2017-10-08 17:08] LABS: INR 1.2 (0.85-1.15)
[2017-10-08 17:11] LABS: TROPONIN I 5.196 ng/mL (0.00-0.056)
[2017-10-08 17:54] LABS: APPEARANCE,URINE Clear (CLEAR); BILIRUBIN,URINE MODERATE (NEGATIVE); BLOOD, URINE Negative Ery/uL (NEGATIVE); COLOR,URINE Dark (YELLOW); KETONES,URINE 15 (NEGATIVE); LEUKOCYTE ESTERASE ,URINE Negative (NEGATIVE); NITRITE, URINE Negative (NEGATIVE); PROTEIN,URINE 30 mg/dl (NEGATIVE); UGLUCOSE Negative (NEGATIVE); UROBILINOGEN,URINE 0.2 EU/dL (0.2)
[2017-10-08 18:15] LABS: BACTERIA,URINE Rare /HPF (None Seen); RBC,URINE NONE SEEN /HPF (0-2); SQUAMOUS EPITHELIAL CELL,UR Few /HPF (None Seen); WBC,URINE NONE SEEN /HPF (0-3)
--- NOTE | 2017-10-08 19:21 | NUR ---
CALLED AND PAGED QUYNH BRADLEY, LUCIEN
--- NOTE | 2017-10-08 19:21 | NUR ---
CALLED NURSING SUPERVSIOR AND REQUESTED A TELE BED FOR THIS PT.
[2017-10-08] MEDS ORDERED: BRIM5DRO3 RIGHTEYE (19:35)
[2017-10-08] MEDS ORDERED: PRED5DRO16 RIGHTEYE (19:35)
[2017-10-08] MEDS ORDERED: MODA100T14 PO (19:35)
[2017-10-08] MEDS ORDERED: SEVE800T8 PO (19:35)
[2017-10-08] MEDS ORDERED: LACT10SO PO (19:35)
[2017-10-08] MEDS ORDERED: ASCO500T9 PO (19:35)
[2017-10-08] MEDS ORDERED: D-ME118S12 PO (19:35)
[2017-10-08] MEDS ORDERED: INSU100V27 SQ (19:35)
[2017-10-08] MEDS ORDERED: LEVO100T9 PO (19:35)
[2017-10-08] MEDS ORDERED: FOLI0.8T23 PO (19:35)
[2017-10-08] MEDS ORDERED: INSU100V7 SQ (19:35)
[2017-10-08] MEDS ORDERED: POLY17PO4 PO (19:35)
[2017-10-08] MEDS ORDERED: ATOR20TA PO (19:35)
[2017-10-08] MEDS ORDERED: ALBU2.5V38 IH (19:35)
[2017-10-08] MEDS ORDERED: GUAI100S9 PO (19:35)
[2017-10-08] MEDS ORDERED: ACETAMINOPHEN 325 MG TABLET PO ONE (20:00)
--- NOTE | 2017-10-08 20:14 | NUR ---
PT IS ASSIGNED TO [facility]#: [id number], DX: SEPSIS, AND ACCEPTING: QUYNH BRADLEY DNP.
[2017-10-08] MEDS ORDERED: ACETAMINOPHEN 325 MG TABLET ONE (20:25)
--- NOTE | 2017-10-08 20:42 | NUR ---
REPORT GIVEN TO MARU
--- NOTE | 2017-10-08 21:15 | NUR ---
REGIONAL DIRECTOR ADMITTING NOTES PATIENT ENTERED UNIT VIA GURNEY, ACCOMPANIED BY 3 ER STAFF AND . PT IS ALERT AND ORIENTED X 2 WITH FORGETFULNESS, LETHARGIC BUT VERBALLY RESPONSIVE BUT FALLS ASLEEP WHILE HAVING A CONVERSATION. PT IS ABLE TO FOLLOW COMMANDS, BREATHING EVEN AND UNLABORED AND IN NO ACUTE DISTRESS. ORIENTED PT AND TO UNIT, ADMISSION PROCESS, CALL LIGHT AND USE OF CALL LIGHT, PT VERBALIZED UNDERSTANDING BUT NEEDS REINFORCEMENT. PT WITH POOR SAFETY AWARENESS, PLACED BED IN LOW POSITION AND LOCKED IN PLACE. PT WITH ROTH CATHETER DRAINING WITH TEA COLORED URINE, IV PERIPHERAL LINE ON LAC G#20 SL AND MIDLINE ON KEVEN BOTH LINES INTACT AND PATENT. ALL PATIENT'S NEEDS ATTENDED TO. KEPT PT SAFE AND DRY, CLEAN AND COMFORTABLE. AWAITING ADMISSION ORDERS. WILL CONTINUE TO MONITOR PT.
[2017-10-08 21:30] VITALS: BP 95/53
--- NOTE | 2017-10-08 21:30 | NUR ---
WOVEN PAPER HAT MENDER NOTES PT UNDER TELE MONITORING ST @ 102 BPM. WILL CONTINUE TO MONITOR.
[2017-10-08] MEDS ORDERED: MAGNESIUM HYDROXIDE 30 ML UDC PO PRN (23:00)
[2017-10-08] MEDS ORDERED: MAG HYDROX/AL HYDROX/SIMETH 30 ML UDC PO PRN (23:00)
[2017-10-08] MEDS ORDERED: ONDANSETRON HCL/PF 4 MG/2 ML VIAL IVP PRN (23:00)
[2017-10-08] MEDS ORDERED: HYDROCODONE/APAP 5/325MG 1 EACH TABLET PO PRN (23:00)
[2017-10-08] MEDS ORDERED: Z GUARD REMEDY 2 OZ OINT TP PRN (23:00)
[2017-10-08] MEDS ORDERED: DEXTROSE 50%-WATER 50 ML DISP.SYRIN IV PRN (23:00)
[2017-10-08] MEDS ORDERED: ACETAMINOPHEN 325 MG TABLET PO PRN (23:00)
[2017-10-08] MEDS ORDERED: ZOLPIDEM TARTRATE 5 MG TABLET PO PRN (23:00)
[2017-10-08] MEDS ORDERED: ALBUTEROL FS 2.5 MG/3 ML VIAL.NEB NEB PRN (23:30)
[2017-10-08] MEDS ORDERED: [UNRECOGNIZED DRUG - OTHER] PO PRN (23:30)
[2017-10-08] MEDS ORDERED: IPRATROPIUM NEB FS 0.5 MG/2.5 ML AMPUL.NEB NEB PRN (23:30)
[2017-10-08] MEDS ORDERED: GUAIFENESIN 300 MG/15 ML UDC PO PRN (23:30)
[2017-10-08] MEDS ORDERED: DEXTROMETHORPHAN PO PRN (23:30)
[2017-10-08] MEDS ORDERED: HYDROCODONE/APAP 10/325MG 1 EA TABLET PO PRN (23:30)
[2017-10-08] MEDS ORDERED: PROMETHAZINE PO PRN (23:30)
[2017-10-09] VITALS (48 sets, daily range): BP systolic 73–155; BP diastolic 35–94
[2017-10-09] MEDS ORDERED: HEPARIN SODIUM, PORCINE 5000 UNITS/1 ML VIAL IV ONE ×2 (00:30)
[2017-10-09] MEDS: BLOOD SUGAR DIAGNOSTIC 1 EACH STRIP IN SCH ×5 (00:39→21:17)
[2017-10-09] MEDS: HEPARIN INFUSION/D5W 500 ML IV PRN ×2 (01:00→20:20)
[2017-10-09] MEDS ORDERED: PIPERACILLIN /TAZOBACTAM 2.25 G VIAL IV ONE ×2 (01:22→05:01)
[2017-10-09] MEDS: PIPERACILLIN /TAZOBACTAM 2.25 G in IV NS 0.9% 50 ML IV SCH ×4 (01:25→21:03)
--- NOTE | 2017-10-09 03:27 | NUR ---
RN NOTES RECEIVED CLARIFICATION OF DIET ORDER TO NPO EXCEPT MEDS, PALEOLOGY PROFESSOR KIRK ALSO AWARE OF PT'S MOST RECENT TROPONIN LEVEL: 6.4 WITH NO NEW ORDERS. ALL ORDERS NOTED AND CARRIED OUT.
--- NOTE | 2017-10-09 06:41 | NUR ---
TRANSCRIPTION SPECIALIST CLOSING NOTES PATIENT UNDER TELE MONITORING, ST 102-150s, NO SOB, DENIES CHEST PAIN, IN NO ACUTE DISTRESS. IVF INFUSING ORDERED AND HEPARIN DRIP INFUSING PER PROTOCOL. PT IS ASLEEP BUT EASILY AROUSABLE, VERBALLY RESPONSIVE. ALL PATIENT'S NEEDS ATTENDED TO THROUGHOUT THE SHIFT. ROTH CATHETER WITH DRAINING WITH TEA COLORED URINE. WILL ENDORSE TO AM SHIFT NURSE FOR CONTINUITY OF CARE.
--- NOTE | 2017-10-09 07:25 | NUR ---
RN INITIAL NOTES: RECEIVED PATIENT FROM MARU BANUELOS. PATIENT RESTING IN BED. NONLABORED BREATHING NOTED ON 2 L NASAL CANNULA. CURRENTLY ON HEPARIN DRIP OF 1200 UNITS/HOUR. PATIENT SVT 151- SINUS TACHYCARDIA 148 PATIENT DENYING PAIN, DENYING CHEST PAIN. EDUCATED KNIT GOODS MENDER LIGHT USAGE. AWAITING TROPONIN LEVELS
[2017-10-09] MEDS ORDERED: LEVOTHYROXINE SODIUM 100 MCG TABLET PO SCH (07:30)
[2017-10-09] MEDS ORDERED: BLOOD SUGAR DIAGNOSTIC 1 EACH STRIP IN SCH (07:30)
--- NOTE | 2017-10-09 07:50 | NUR ---
RN NOTES UNABLE TO GET HOLD OF DR ZAFAR, DR BAUMANN PER PAGING SERVICE, DR REYNA IS COVERING
--- NOTE | 2017-10-09 07:59 | NUR ---
PER DR REYNA, METOPROLOL TARTARATE 25 MG ONCE NOW PO
[2017-10-09] MEDS ORDERED: METOPROLOL TARTRATE 25 MG TABLET PO ONE (08:00)
[2017-10-09 08:02] LABS: ALANINE AMINOTRANSFERASE 18 U/L (12-78); ALBUMIN 2.4 g/dL (3.4-5.0); ALKALINE PHOSPHATASE 172 U/L (46-116); ASPARTATE AMINOTRANSFERASE 34 U/L (15-37); B-TYPE NATRIURETIC PEPTIDE 18872 PG/ML (0-125); BILIRUBIN,TOTAL 0.8 mg/dL (0.2-1.0); CALCIUM, SERUM 8.1 mg/dL (8.5-10.1); CARBON DIOXIDE 26 mmol/L (21-32); CHLORIDE 94 mmol/L (98-107); CREATININE 3.9 mg/dL (0.6-1.3); GLUCOSE 204 mg/dL (74-106); HEMATOCRIT 27 % (39-51); HEMOGLOBIN 8.5 g/dL (13.5-17.5); MAGNESIUM 1.8 mg/dL (1.8-2.4); MEAN CORPUSCULAR HEMOGLOBIN 25 PG (26.0-33.0); MEAN CORPUSCULAR HGB CONC 31 g/dl (31.0-36.0); MEAN CORPUSCULAR VOLUME 80 fL (80-96); PHOSPHORUS 3.7 mg/dL (2.5-4.9); PLATELET COUNT (AUTO) 270 /CMM (150-450); POTASSIUM 4.4 mmol/L (3.5-5.1); RDW COEFFICIENT OF VARIATION 20.5 (11.5-15.0); RED BLOOD CELL COUNT(AUTO) 3.41 MIL/uL (4.5-6.0); SODIUM SERUM 130 mmol/L (136-145); TOTAL PROTEIN, SERUM 8.1 g/dL (6.4-8.2); UREA NITROGEN, BLOOD 51 mg/dL (7-18); WHITE BLOOD COUNT (AUTO) 17.8 K/uL (4.3-11.0)
--- NOTE | 2017-10-09 08:10 | NUR ---
DR REYNA NOTIFIED OF RECENT TROPONIN LEVEL OF 6.412
[2017-10-09 08:11] LABS: CHOLESTEROL 70 mg/dL (<200); LDL 31 mg/dL (0-99); THYROID STIMULATING HORMONE 3.038 uIU/mL (0.358-3.74); TRIGLYCERIDES 133 mg/dL (30-150)
[2017-10-09 08:13] LABS: HDL CHOLESTEROL < 10 mg/dL (40-60)
--- NOTE | 2017-10-09 08:15 | NUR ---
PATIENT STILL SVT 153 ON TELE MONITOR. NONLABORED BREATHING NOTED. DENYING CHEST PAIN . PATIENT TO BE TRANSFERRED TO ICU PER DR KOENIG ORDERS. REYES CHARGE NURSE NOTIFIED
[2017-10-09 08:21] LABS: INR 1.16 (0.87-1.13)
[2017-10-09] MEDS ORDERED: FEE PK DOSING 1 MIN EA MC ONE (08:29)
[2017-10-09] MEDS ORDERED: PROMETHAZINE HCL SYRUP 6.25 MG/5 ML UDC PO PRN (08:30)
[2017-10-09] MEDS ORDERED: LACTULOSE 10 G/15 ML UDC (PYXIS) PO PRN (08:30)
[2017-10-09] MEDS ORDERED: GUAIFENESIN/D-METHORPHAN HB 5 ML UDC PO PRN (08:30)
--- NOTE | 2017-10-09 08:30 | NUR ---
PATIENT TRANSFERRED TO ICU PER DR KOENIG ORDERS FOR ADMINISTRATION OF ADENOSINE REPORT GIVEN TO FRANCISCO BANUELOS PATIENT REMAINED SVT 152 ON TELE MONITOR THROUGHOUT TRANSFER. PATIENT REMAINED AOX2 THROUGHOUT TRANSFERRED, RESPONSIVE TO NAME AND TOUCH ROTH CATHETER DRAINING DAVEY COLORED URINE KEVEN MIDLINE AND LAC #20 GAUGE PATENT AND INTACT. HEPARIN DRIP RUNNING AND INFO SHEETS FAXED TO PHARMACY FOR VERIFICATION OF DOSAGE, AWAITING PT, INR RESULTS RIGHT CHEST WALL HD CATH INTACT WITH DRESSING ALL BELONGINGS TRANSFERRED WITH PT
--- NOTE | 2017-10-09 08:50 | NUR ---
RN NOTES: VIN SINGH NOTIFIED OF PTT RESULT, HEPARIN DRIP TO BE ADJUSTED BY STOCK BLENDER. NATALIA FROM PHARMACY NOTIFIED
[2017-10-09] MEDS ORDERED: ASCORBIC ACID 500 MG TABLET PO SCH (09:00)
[2017-10-09] MEDS ORDERED: ZINC SULFATE 220 MG CAPSULE PO SCH (09:00)
[2017-10-09] MEDS ORDERED: VIT B CMPLX 3/FA/VIT C/BIOTIN 1 TAB TABLET PO SCH (09:00)
[2017-10-09] MEDS ORDERED: MODAFINIL 100 MG TABLET PO SCH (09:00)
[2017-10-09] MEDS ORDERED: DAKINS QUARTER STRENGTH (0.125%) 480 ML BOTTLE TOP SCH (09:00)
[2017-10-09] MEDS ORDERED: PANTOPRAZOLE 40 MG VIAL IV SCH (09:00)
[2017-10-09] MEDS ORDERED: CLOPIDOGREL BISULFATE 75 MG TABLET PO SCH (09:00)
[2017-10-09] MEDS ORDERED: POLYETHYLENE GLYCOL 3350 17 GM POWD.PACK PO SCH (09:00)
[2017-10-09] MEDS ORDERED: ASPIRIN 81 MG TAB.CHEW PO SCH (09:00)
[2017-10-09] MEDS ORDERED: DRONEDARONE HYDROCHLORIDE 400 MG TABLET PO SCH (09:00)
[2017-10-09] MEDS ORDERED: SILVER SULFADIAZINE CREAM 25 GM TUBE TP SCH (09:00)
[2017-10-09] MEDS ORDERED: DULOXETINE HCL 30 MG CAPSULE.DR PO SCH (09:00)
[2017-10-09] MEDS ORDERED: ADENOSINE 6 MG/2 ML VIAL IVP ONE ×2 (09:00)
[2017-10-09 09:04] LABS: THYROID STIMULATING HORMONE 2.963 uIU/mL (0.358-3.74)
[2017-10-09] MEDS: SEVELAMER CARBONATE 800 MG TABLET PO SCH ×3 (09:25→17:41)
--- NOTE | 2017-10-09 09:29 | NUR ---
JIG BOX OPERATOR NOTE 0845: Received patient from [employer] / [employer] for SVT, on 150's at this time. Patient is lethargic, A/Ox2. On 2LPM of O2 via NS, sat 97%. RSC HD cath intact. KEVEN midline intact. On Heparin drip @ 1200u/hr. With right foo0t plantar wound, dressing CDI. 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 EKG by RT at bedside. 854: PTT result 40, changed to 1400 units/hr, ordered PTT at 1500. Dr. Parson at bedside for right foot wound consult, with new orders carried out. 899: EKG resulted and sent to Dr. Carvalho, with order to give Adenosine. 0909: Adenosine 6mg given, ineffective. 0911: Adenosine 12mg given converted to SR 90's. Patient mentioned he has big BM last time, held Miralax. 0913: Made Dr. Carvalho aware for the conversion to SR90's, ordered to start on Amio bolus and and drip. S/E by dr. Finney, patient still lethargic, with order for ABG, made RT aware.
[2017-10-09 09:47] LABS: ABG BASE EXCESS 0.2 mmol/L; ABG OXYGEN SATURATION 97.6 % (92.0-98.5); ABG PCO2 29.9 mmHg (35.0-45.0); ABG PH 7.501 (7.350-7.450); ABG PO2 107.6 mmHg (75.0-100.0); AaDO2 56.8 mmHg; COHb 0.3 % (0.5-1.5); MetHb 0.6 % (0.0-1.5); O2Hb 96.7 % (94.0-97.0); SITE, ABG Left Brachial; VENT MODE, BG 2L NC
[2017-10-09] MEDS ORDERED: AMIODARONE 900 MG in IV D5W 482 ML IV PRN (10:00)
[2017-10-09] MEDS ORDERED: AMIODARONE 150 MG in IV D5W 100 ML IV ONE (10:00)
--- NOTE | 2017-10-09 10:00 | NUR ---
UNABLE TO GET HOLD OF PER GIVEN PHONE NUMBER TO UPDATE HER. WILL TRY AGAIN
[2017-10-09 10:40] LABS: BAND % (MANUAL) 3 % (0.0-5.0); LYMPHOCYTES % (MANUAL) 2 % (16-48); MONOCYTES % (MANUAL) 6 % (0-11.0); NEUTROPHILS % (MANUAL) 89 (42-76)
[2017-10-09] MEDS: IPRATROPIUM NEB FS 0.5 MG/2.5 ML AMPUL.NEB NEB SCH ×3 (11:15→20:00)
[2017-10-09] MEDS: BRIMONIDINE TARTRATE OPHT SOLN 5 ML BOTTLE RIGHTEYE SCH ×3 (11:41→17:39)
[2017-10-09] MEDS: prednisoLONE ACET 1% OPHT DROP 5 ML BOTTLE RIGHTEYE SCH ×4 (11:42→21:03)
[2017-10-09] MEDS: INSULIN REGULAR, HUMAN 100 UNIT/ML 3 ML VIAL SQ PRN ×2 (12:21→17:41)
[2017-10-09] MEDS ORDERED: ALBUMIN 25% 25 GM in PREMIX 1 EA IV PRN (15:00)
--- NOTE | 2017-10-09 15:17 | NUR ---
COUNTY TREASURER NOTE 1440: Received patient from MS for low BP, accompanied by RT, placed on vetn from cool aerosol per Dr. Finney. With order to june start on Levo. 1455: Noted with SBP 70's, Dr. Finney ordered to give 500mL bolus. S/E by Dr. Proctor, no new order at this time. Dr. Quevedo ordered to june insert Hortencia, Dr. Guevara called and said he will be here @ 1900, with order to may get ABG from femoral artery. 1515: Still with lo wBP. kept HOB flat, held GT feeding.
[2017-10-09] MEDS ORDERED: METOPROLOL TARTRATE 25 MG TABLET PO SCH (21:00)
[2017-10-09] MEDS ORDERED: TAMSULOSIN 0.4 MG CAP.SR.24H PO SCH (22:00)
[2017-10-09] MEDS ORDERED: ATORVASTATIN 10 MG TABLET PO SCH ×2 (22:00)
[2017-10-09] MEDS ORDERED: INSULIN GLARGINE, 100 UNIT/ML CARTRIDGE SQ SCH (22:00)
--- NOTE | 2017-10-09 22:00 | NUR ---
RN NOTES 19:20 PM - RECEIVED PT A/OX2, LETHARGIC RESPONSIVE TO TACTILE AND VERBAL STIMULI. ABG DONE PER PREVIOUS NURSE WITH GOOD RESULT. ISOLATION FOR VRE WOUND STRICTLY OBSERVED. KIRSTEN CUTE RESP DISTRESS. DENIES PAIN. AFEBRILE. TELE MONITOR REVEALS SR HR 86. IV SITE ON LAC G 20 AND KEVEN ML RUNNING WITH HEPARIN @ 1600 U'/HR AND AMIODARONE 0.5 MG INTACT AND PATENT. RCW HD CATH CLEANED AND DRY. WITH F/C DRAINED WITH SMALL AMT. OF DAVEY COLOR URINE. CASTABLES WORKER CALLED STATED THAT PT WILL BE TRANSFER TONIGHT AT [facility]. FOR POSSIBLE CARDIAC CATH TELE ROOM 2327 AND SCLEROSCOPE TESTER WILL BE DR. ISA NAIK. UNIT NUMBER OR [phone] PT HAD AN ORDER TO HOLD HEPARIN AND AMIODARONE DRIP FOR TRANSPORT. 20:20 PM - CALLED TIERA () INFORMED ABOUT THE TRANSFER TO [facility]. 20:30 PM - CALLED [facility] SPOKE WITH RENO SELLERS CHARGE NURSE AND GAVE REPORT ABOUT THE PT STATUS. 21:30 PM - ALL DUE MEDICINE ADMINISTERED ORDERED AND TOLERATED IT BY MOUTH. 21:50 PM - [facility] CAME AND PICKED UP THE PATIENT
--- NOTE | 2017-10-09 22:10 | NUR ---
RN NOTES PT LEFT IN STABLE CONDITION VSS. NO ACUTE RESP DISTRESS. REMAINED SR. HR 80'S . SHORT REPORT GIVEN TO TRANSPORT AND DISCHARGE SUMMARY GIVEN.
[2017-10-10] MEDS ORDERED: VANCOMYCIN 1.25 GM in IV D5W 500 ML IV SCH (17:00)
== END 2017-10-09 21:53 | disposition short-term general hospital (02) | DRG 871 ==
LOC: ER 16:18 → TELE 20:15 → ICU 10-09 08:36
PROVIDERS: ADMIT Hospitalist; ATTEND Hospitalist
PROC: 5A1D70Z Performance of Urinary Filtration, Intermittent, Less than 6 Hours Per Day (ICD-10-PCS; principal; 2017-10-09)
DX: A41.9 Sepsis, unspecified organism (principal); E43 Unspecified severe protein-calorie malnutrition; I21.4 Non-ST elevation (NSTEMI) myocardial infarction; I50.23 Acute on chronic systolic (congestive) heart failure; G92 Toxic encephalopathy; J96.91 Respiratory failure, unspecified with hypoxia; N18.6 End stage renal disease; Z68.41 Body mass index [BMI] 40.0-44.9, adult; I13.2 Hypertensive heart and chronic kidney disease with heart failure and with stage 5 chronic kidney disease, or end stage renal disease; E87.1 Hypo-osmolality and hyponatremia; I47.1 Supraventricular tachycardia; I48.92 Unspecified atrial flutter; M86.671 Other chronic osteomyelitis, right ankle and foot; L97.419 Non-pressure chronic ulcer of right heel and midfoot with unspecified severity; E11.22 Type 2 diabetes mellitus with diabetic chronic kidney disease; E11.621 Type 2 diabetes mellitus with foot ulcer; E11.65 Type 2 diabetes mellitus with hyperglycemia; E11.69 Type 2 diabetes mellitus with other specified complication; E66.01 Morbid (severe) obesity due to excess calories; D50.9 Iron deficiency anemia, unspecified; D63.8 Anemia in other chronic diseases classified elsewhere; E03.9 Hypothyroidism, unspecified; E78.5 Hyperlipidemia, unspecified; K21.9 Gastro-esophageal reflux disease without esophagitis; I25.10 Atherosclerotic heart disease of native coronary artery without angina pectoris; E11.51 Type 2 diabetes mellitus with diabetic peripheral angiopathy without gangrene; G47.33 Obstructive sleep apnea (adult) (pediatric); I25.5 Ischemic cardiomyopathy; R65.20 Severe sepsis without septic shock; Z86.73 Personal history of transient ischemic attack (TIA), and cerebral infarction without residual deficits; Z95.1 Presence of aortocoronary bypass graft; Z95.5 Presence of coronary angioplasty implant and graft; Z99.2 Dependence on renal dialysis; Z87.891 Personal history of nicotine dependence; N40.0 Benign prostatic hyperplasia without lower urinary tract symptoms; I48.0 Paroxysmal atrial fibrillation; Z89.612 Acquired absence of left leg above knee; I45.10 Unspecified right bundle-branch block; E88.09 Other disorders of plasma-protein metabolism, not elsewhere classified; Z95.810 Presence of automatic (implantable) cardiac defibrillator; E83.9 Disorder of mineral metabolism, unspecified; B96.89 Other specified bacterial agents as the cause of diseases classified elsewhere; Z79.4 Long term (current) use of insulin
CPT/HCPCS: 36415; 36600; 71045-TC; 73590-TC; 80048-TC; 80053-TC; 80061-TC; 80076-TC; 81000-TC; 82728-TC; 82803-TC; 82962-TC; 83540-TC; 83605-TC; 83735-TC; 83880; 84100-TC; 84439-TC; 84443-TC; 84484-TC; 85025-TC; 85730-TC; 87040-TC; 87081-TC; 87086-TC; 90935-TC; 93307-TC; 94799-TC; A4216; A4606; A6402; A6403; C9113; J0153; J0282; J1644; J1815; J2543; J3370; J7030; J7040; J7060; P9047; Q0169; Z7610

== ENCOUNTER 2017-11-13 19:03 | Inpatient (IN) | payer MEDICARE, BC, MEDICAID ==
[~2017-11-13] VITALS: Ht 177.8 cm; Wt 111.4 kg
[~2017-11-13 19:03] MED LIST changes: -ACID1TAB12 PO; +ALBU2.5V38 IH; -AMIO200T7 PO; -ARGI1POW13 PO; +ATOR20TA PO; -ATOR80TA PO; -BISA10SU8 RC; -BLOO-697 IN; +BRIM5DRO3 RIGHTEYE; -CALC-261 PO; -CARV6.252 PO; +D-ME118S12 PO; -DOCU-270 PO; -FERR325T23 PO; +FOLI0.8T23 PO; -FURO80TA3 PO; +GUAI100S9 PO; +INSU100V27 SQ; -INSU100V3 SQ; +INSU100V7 SQ; +LACT10SO PO; -LINE600T PO; -MAGN400O6 PO; +MODA100T14 PO; -MULT-659 PO; -NITR0.4T48 SL; +POLY17PO4 PO; +PRED5DRO16 RIGHTEYE; -RXGEN XX; -Rivaroxaban PO; +SEVE800T8 PO
--- NOTE | 2017-11-13 19:59 | NUR ---
BIB [facility] " SLIGHTLY ALTERED AFTER DIALYSIS ". FSBS 202G/DL. FEVER 101.1 @ SNF & GIVEN TYLENOL GIVEN BEHAVIORAL INTERVENTION SPECIALIST. PT LETHARGIC BUT EASILY AWAKEN WITH VERBAL STIMULI BUT WILL GO BACK TO SLEEP. AAOX2. PT ON 4L @ FACILITY, NO RESP DISTRESS. PLACE ON MONITOR, DENIES CP, N/V/D, PAIN @ THIS TIME. PT SEEN & EVAL'D BY DR. LOVELL. @ BS & WILL CONT TO MONITOR.
[2017-11-13 20:04] LABS: BASOPHILS # (AUTO) 0.1 /CMM (0.0-0.2); BASOPHILS % (AUTO) 0.6 % (0.0-2.0); EOSINOPHILS % (AUTO) 0.3 % (0.0-6.0); HEMATOCRIT 25 % (39-51); HEMOGLOBIN 8.1 g/dL (13.5-17.5); LYMPHOCYTES # (AUTO) 0.6 /CMM (0.8-4.8); LYMPHOCYTES % (AUTO) 4.8 % (20.0-44.0); MEAN CORPUSCULAR HGB CONC 32 g/dl (31.0-36.0); MEAN CORPUSCULAR VOLUME 73 fL (80-96); MONOCYTES # (AUTO) 0.3 /CMM (0.1-1.30); MONOCYTES % (AUTO) 1.9 % (2.0-12.0); NEUTROPHILS # (AUTO) 12.2 /CMM (1.8-8.9); NEUTROPHILS % (AUTO) 92.4 % (43.0-81.0); PLATELET COUNT (AUTO) 414 /CMM (150-450); RDW COEFFICIENT OF VARIATION 21.1 (11.5-15.0); RED BLOOD CELL COUNT(AUTO) 3.42 MIL/uL (4.5-6.0); WHITE BLOOD COUNT (AUTO) 13.2 K/uL (4.3-11.0)
[2017-11-13 20:16] LABS: CALCIUM, SERUM 8.6 mg/dL (8.5-10.1); CARBON DIOXIDE 34 mmol/L (21-32); CHLORIDE 99 mmol/L (98-107); GLUCOSE 184 mg/dL (74-106); POTASSIUM 3.2 mmol/L (3.5-5.1); SODIUM SERUM 135 mmol/L (136-145); UREA NITROGEN, BLOOD 19 mg/dL (7-18)
[2017-11-13 20:20] LABS: INR 2.74 (0.85-1.15)
[2017-11-13 20:25] LABS: ALANINE AMINOTRANSFERASE 16 U/L (12-78); ALBUMIN 2.3 g/dL (3.4-5.0); ALKALINE PHOSPHATASE 189 U/L (46-116); ASPARTATE AMINOTRANSFERASE 18 U/L (15-37); BILIRUBIN,DIRECT 0.1 mg/dL (0.0-0.2); BILIRUBIN,TOTAL 0.4 mg/dL (0.2-1.0); TROPONIN I 0.062 ng/mL (0.00-0.056)
[2017-11-13 20:26] LABS: TOTAL PROTEIN, SERUM 8.1 g/dL (6.4-8.2)
[2017-11-13 20:42] LABS: APPEARANCE,URINE Clear (CLEAR); BILIRUBIN,URINE Negative (NEGATIVE); BLOOD, URINE Moderate Ery/uL (NEGATIVE); COLOR,URINE Yellow (YELLOW); KETONES,URINE Negative (NEGATIVE); LEUKOCYTE ESTERASE ,URINE Moderate (NEGATIVE); NITRITE, URINE Negative (NEGATIVE); PH,URINE 5.5 (5.0-8.0); PROTEIN,URINE 100 mg/dl (NEGATIVE); UGLUCOSE Negative (NEGATIVE); UROBILINOGEN,URINE 0.2 EU/dL (0.2)
--- NOTE | 2017-11-13 20:42 | NUR ---
PT BACK FROM CT. URINE COLLECTED VIA I&O CATHETER & SENT TO LAB.
[2017-11-13] MEDS ORDERED: MEROPENEM 500 MG in IV NS 0.9% 50 ML IV ONE (21:00)
[2017-11-13] MEDS ORDERED: VANCOMYCIN 1 GM in IV D5W 250 ML IV ONE (21:00)
[2017-11-13] MEDS ORDERED: ASPIRIN 81 MG TAB.CHEW PO ONE (21:00)
[2017-11-13] MEDS ORDERED: VANCOMYCIN 1 GM VIAL ONE (21:01)
[2017-11-13] MEDS ORDERED: MEROPENEM 500 MG VIAL IV ONE (21:01)
[2017-11-13] MEDS ORDERED: ASPIRIN 81 MG TAB.CHEW ONE (21:02)
[2017-11-13 21:03] LABS: BACTERIA,URINE Many /HPF (None Seen); RBC,URINE 21-50 /HPF (0-2); SQUAMOUS EPITHELIAL CELL,UR Few /HPF (None Seen); WBC,URINE 21-50 /HPF (0-3)
--- NOTE | 2017-11-13 21:11 | NUR ---
PAGED EPIC FOR PANEL
--- NOTE | 2017-11-13 21:18 | NUR ---
PT AWAKE, MORE TALKATIVE RIGHT NOW. DENIES CP, SOB, DIZZINESS, N/V/D @ THIS TIME. STARTED IV ABX, PT KOREY WELL & WILL CONT TO MONITOR.
[2017-11-13] MEDS ORDERED: ACETAMINOPHEN 325 MG TABLET PO PRN (22:00)
[2017-11-13] MEDS ORDERED: ONDANSETRON HCL/PF 4 MG/2 ML VIAL IVP PRN (22:00)
[2017-11-13] MEDS ORDERED: ZOLPIDEM TARTRATE 5 MG TABLET PO PRN (22:00)
[2017-11-13] MEDS ORDERED: MAG HYDROX/AL HYDROX/SIMETH 30 ML UDC PO PRN (22:00)
[2017-11-13] MEDS ORDERED: MAGNESIUM HYDROXIDE 30 ML UDC PO PRN (22:00)
[2017-11-13] MEDS ORDERED: Z GUARD REMEDY 2 OZ OINT TP PRN (22:00)
--- NOTE | 2017-11-13 22:07 | NUR ---
ABG ORDER CANCELED PER MD DR LOVELL
--- NOTE | 2017-11-13 22:10 | NUR ---
ADMINISTRATOR PESTICIDE NOTES RECEIVED PATIENT FROM ER VIA [facility] AT 2210. PATIENT IS ALERT AND ORIENTED X2, UNCLEAR SPEECH, POOR CONCENTRATION, EASILY FALLS ASLEEP (SLIGHTLY LETHARGIC), BUT AROUSABLE TO TOUCH. BREATHING EVEN AND UNLABORED. NO SOB NOTED. ON 3L VIA NC. SATING AT 96%. IV ACCESS ON LEFT AC INTACT AND PATENT - CURRENTLY RECEIVING REMAINING DOSE OF VANCOMYCIN FROM ER. PATIENT NOTED WITH MULTIPLE SKIN ISSUES, ALTHOUGH SKIN IS DRY AND WARM TO TOUCH. AFEBRILE. NO COMPLAINTS OF PAIN OR DISCOMFORT. NO FACIAL GRIMACING. MADE COMFORTABLE IN BED. ORIENTED TO THE USE OF FACILITY AMENITIES. INVENTORY LIST DONE. SAFETY MEASURES IN PLACE. CALL LIGHT WITHIN REACH. WILL CONTINUE TO MONITOR.
[2017-11-13 22:15] VITALS: BP 86/49
[2017-11-13 23:00] VITALS: BP 99/50
--- NOTE | 2017-11-13 23:33 | NUR ---
PORTAL ARCHITECT NOTES PAGED DR. MCCANN FOR MED RECON. AWAITING CALL BACK.
--- NOTE | 2017-11-13 23:40 | NUR ---
LEAD QUALITY CONTROL TECHNICIAN NOTES DR. MCCANN PAGED BACK. INFORMED MD THAT MED RECON NEEDS TO BE DONE. PER DR. MCCANN, HE WILL PUT THEM IN WHEN HE CAN.
[2017-11-13] MEDS ORDERED: PIPERACILLIN /TAZOBACTAM 2.25 G VIAL IV ONE (23:55)
[2017-11-14] VITALS: BP 128/54
[2017-11-14] MEDS: PIPERACILLIN /TAZOBACTAM 2.25 G in IV D5W 50 ML IV SCH ×4 (00:10→21:00)
[2017-11-14] MEDS ORDERED: ACETAMINOPHEN 325 MG TABLET PO PRN (00:30)
[2017-11-14 04:00] VITALS: BP 113/55
[2017-11-14] MEDS ORDERED: PIPERACILLIN /TAZOBACTAM 2.25 G VIAL IV ONE (05:00)
--- NOTE | 2017-11-14 06:45 | NUR ---
MEDICAL CODING TECHNICIAN CLOSING NOTES PATIENT AWAKE IN BED. ALERT AND ORIENTED X2. NO ACUTE CHANGES THROUGHOUT SHIFT. VERBALLY RESPONSIVE BUT SOMETIMES HARD TO UNDERSTAND. BREATHING EVEN AND UNLABORED. NO SOB NOTED. ON 3L OXYGEN VIA NC - SATURATING WELL. NO COMPLAINTS OF PAIN OR DISCOMFORT. NO FACIAL GRIMACING. SKIN DRY AND WARM TO TOUCH. AFEBRILE. IV ACCESS INTACT AND PATENT. KEPT CLEAN, DRY AND COMFORTABLE. 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 ALL OTHER NEEDS ATTENDED TO. SAFETY MEASURES IN PLACE. CALL LIGHT WITHIN REACH. WILL ENDORSE TO ONCOMING NURSE FOR CONTINUITY OF CARE.
[2017-11-14] MEDS ORDERED: PROMETHAZINE HCL SYRUP 6.25 MG/5 ML UDC PO PRN (07:30)
[2017-11-14 07:43] LABS: HEMATOCRIT 25 % (39-51); HEMOGLOBIN 7.7 g/dL (13.5-17.5); MEAN CORPUSCULAR HGB CONC 30 g/dl (31.0-36.0); MEAN CORPUSCULAR VOLUME 76 fL (80-96); PLATELET COUNT (AUTO) 427 /CMM (150-450); RDW COEFFICIENT OF VARIATION 22.9 (11.5-15.0); RED BLOOD CELL COUNT(AUTO) 3.34 MIL/uL (4.5-6.0); WHITE BLOOD COUNT (AUTO) 13.5 K/uL (4.3-11.0)
[2017-11-14 07:58] LABS: ALANINE AMINOTRANSFERASE 21 U/L (12-78); ALBUMIN 2.3 g/dL (3.4-5.0); ALKALINE PHOSPHATASE 175 U/L (46-116); ASPARTATE AMINOTRANSFERASE 17 U/L (15-37); BILIRUBIN,TOTAL 0.5 mg/dL (0.2-1.0); CALCIUM, SERUM 8.5 mg/dL (8.5-10.1); CARBON DIOXIDE 32 mmol/L (21-32); CHLORIDE 99 mmol/L (98-107); CREATININE 2.4 mg/dL (0.6-1.3); GLUCOSE 155 mg/dL (74-106); MAGNESIUM 1.8 mg/dL (1.8-2.4); PHOSPHORUS 3.2 mg/dL (2.5-4.9); POTASSIUM 3.3 mmol/L (3.5-5.1); SODIUM SERUM 137 mmol/L (136-145); TOTAL PROTEIN, SERUM 7.9 g/dL (6.4-8.2); UREA NITROGEN, BLOOD 27 mg/dL (7-18)
[2017-11-14] MEDS ORDERED: LACTULOSE 10 G/15 ML UDC (PYXIS) PO PRN (08:00)
[2017-11-14 08:01] LABS: CHOLESTEROL 87 mg/dL (<200); HDL CHOLESTEROL 26 mg/dL (40-60); LDL 55 mg/dL (0-99); TRIGLYCERIDES 75 mg/dL (30-150)
[2017-11-14 08:29] VITALS: BP 105/61
[2017-11-14] MEDS: ASCORBIC ACID 500 MG TABLET PO SCH (08:46)
[2017-11-14] MEDS: ASPIRIN 81 MG TAB.CHEW PO SCH (08:46)
[2017-11-14] MEDS: DULOXETINE HCL 30 MG CAPSULE.DR PO SCH (08:46)
[2017-11-14] MEDS: DRONEDARONE HYDROCHLORIDE 400 MG TABLET PO SCH ×2 (08:46→18:08)
[2017-11-14] MEDS: ZINC SULFATE 220 MG CAPSULE PO SCH (08:46)
[2017-11-14] MEDS: CLOPIDOGREL BISULFATE 75 MG TABLET PO SCH (08:46)
[2017-11-14] MEDS: POLYETHYLENE GLYCOL 3350 17 GM POWD.PACK PO SCH (08:46)
[2017-11-14] MEDS: LEVOTHYROXINE SODIUM 100 MCG TABLET PO SCH (08:46)
[2017-11-14] MEDS: VIT B CMPLX 3/FA/VIT C/BIOTIN 1 TAB TABLET PO SCH (08:47)
[2017-11-14] MEDS: MODAFINIL 100 MG TABLET PO SCH (08:47)
[2017-11-14] MEDS: prednisoLONE ACET 1% OPHT DROP 5 ML BOTTLE RIGHTEYE SCH ×4 (08:47→20:59)
[2017-11-14] MEDS: HYDROCODONE/APAP 10/325MG 1 EA TABLET PO PRN (08:54)
[2017-11-14] MEDS: SEVELAMER CARBONATE 800 MG TABLET PO SCH ×3 (09:48→18:08)
[2017-11-14] MEDS: BRIMONIDINE TARTRATE OPHT SOLN 5 ML BOTTLE RIGHTEYE SCH ×3 (09:49→16:46)
[2017-11-14] MEDS ORDERED: POTASSIUM CHLORIDE 10 MEQ TABLET.SA PO SCH (10:00)
[2017-11-14 10:17] LABS: NEUTROPHILS % (MANUAL) 84 (42-76)
[2017-11-14 10:18] LABS: EOSINOPHILS % (MANUAL) 2 % (0-4); LYMPHOCYTES % (MANUAL) 10 % (16-48); MONOCYTES % (MANUAL) 4 % (0-11.0)
--- NOTE | 2017-11-14 10:50 | NUR ---
WOUND CARE CONSULT: PT PRESENTS WITH MULTIPLE WOUNDS PRESENT ON ADMISSION INCLUDING RT LOWER LEG AND FOOT WOUNDS AND STAGE 3 ULCERS TO SACRAL/BUTTOCK AREAS WELL STAGE 2 ULCER TO RT BACK. RECOMMEND SURGICAL CONSULT AND DPM CONSULT. FIRST STEP MATTRESS LOW AIRLOSS MATTRESS ORDERED. DEFER TO SURGEON AND DPM FOR WOUND TREATMENT PLAN. WILL SEE PRN. WIGGINS IN AGREEMENT WITH PLAN OF CARE. Addendum: 11/14/17 at 1053 by LU LUZ WNDNU Amended: Links added.
--- NOTE | 2017-11-14 13:55 | NUR ---
Nursing notes inserted Price catheter as ordered 16 egyptian inserted tofd Addendum: 11/14/17 at 1358 by AMERICA RIOS RN Nursing notes inserted Price catheter as ordered 16 egyptian inserted today 11/14/17 patient is stable will continue to treat and monitor.
[2017-11-14] MEDS: NEOMY SULF/BACITRAC ZN/POLY 15 GM TUBE TP SCH (15:30)
[2017-11-14 16:00] VITALS: BP 103/67
--- NOTE | 2017-11-14 16:12 | NUR ---
NURSING NOTES PATIENT SIGNED CONSENT FOR DEBRIDMENT. CONSENT PLACED ON THE FRONT OF THE CHART.
--- NOTE | 2017-11-14 16:50 | NUR ---
NURSING NOTES INFORMED THAT SPECIALITY BED HAS BEEN ORDERED WAITING FOR BED TO ARRIVE.
[2017-11-14] MEDS ORDERED: DAKINS QUARTER STRENGTH (0.125%) 480 ML BOTTLE TOP PRN (17:30)
--- NOTE | 2017-11-14 18:33 | NUR ---
NURSING NOTES ATTEMPTED IV INSERTION WAS UNSUCCESSFUL. PATIENT IS STABLE WILL ENDORSE TO NEXT SHIFT NURSE.
--- NOTE | 2017-11-14 19:30 | NUR ---
RN MS OPENING NOTES PATIENT AWAKE IN BED. ALERT AND ORIENTED X2. VERBALLY RESPONSIVE BUT SOMETIMES HARD TO UNDERSTAND. BREATHING EVEN AND UNLABORED. NO SOB NOTED. ON 3L OXYGEN VIA NC - SATURATING WELL. NO COMPLAINTS OF PAIN OR DISCOMFORT. NO FACIAL GRIMACING. SKIN DRY AND REMAINS ON CONTACT ISOLATION DUE TO HISTORY OF MRSA. ALL OTHER NEEDS ATTENDED TO. SAFETY MEASURES IN PLACE. CALL LIGHT WITHIN REACH. WILL CONTINUE TO MONITOR.
[2017-11-14 20:00] VITALS: BP 128/67
--- NOTE | 2017-11-14 20:30 | NUR ---
RN MS NOTES NEW IV ACCESS INSERTED ON THE RIGHT HAND G#24. INTACT AND PATENT. FLUSHING WELL. WILL CONTINUE TO MONITOR.
[2017-11-14] MEDS: INSULIN GLARGINE, 100 UNIT/ML CARTRIDGE SQ SCH (21:02)
[2017-11-14] MEDS: TAMSULOSIN 0.4 MG CAP.SR.24H PO SCH (21:03)
[2017-11-14] MEDS: ATORVASTATIN 10 MG TABLET PO SCH (21:03)
[2017-11-15] MEDS: PIPERACILLIN /TAZOBACTAM 2.25 G in IV D5W 50 ML IV SCH ×3 (05:31→20:34)
--- NOTE | 2017-11-15 07:18 | NUR ---
RN MS CLOSING NOTES PATIENT AWAKE IN BED. ALERT AND ORIENTED X2. NO ACUTE CHANGES THROUGHOUT SHIFT. VERBALLY RESPONSIVE BUT SOMETIMES HARD TO UNDERSTAND. BREATHING EVEN AND UNLABORED. NO SOB NOTED. ON ROOM AIR- TOLERATING WELL. NO COMPLAINTS OF PAIN OR DISCOMFORT. NO FACIAL GRIMACING. SKIN DRY AND WARM TO TOUCH. AFEBRILE. IV ACCESS INTACT AND PATENT. KEPT CLEAN, DRY AND COMFORTABLE. REMAINS ON CONTACT ISOLATION DUE TO HISTORY OF MRSA. ALL OTHER NEEDS ATTENDED TO. SAFETY MEASURES IN PLACE. CALL LIGHT WITHIN REACH. WILL ENDORSE TO ONCOMING NURSE FOR CONTINUITY OF CARE.
--- NOTE | 2017-11-15 07:34 | NUR ---
MS RN OPENING NOTES RECEIVED PATIENT IN STABLE CONDITION. IN NO APPARENT DISTRESS. BEDSIDE RAILS ARE UPX2. BED IS LOCKED AND LOWERED. CALL LIGHT IS WITHIN REACH. IV LINE IS INTACT AND PATENT. WILL CONTINUE TO MONITOR PATIENT.
[2017-11-15 07:37] LABS: CALCIUM, SERUM 8.2 mg/dL (8.5-10.1); CARBON DIOXIDE 32 mmol/L (21-32); CHLORIDE 100 mmol/L (98-107); CREATININE 3.3 mg/dL (0.6-1.3); GLUCOSE 122 mg/dL (74-106); POTASSIUM 3.3 mmol/L (3.5-5.1); SODIUM SERUM 139 mmol/L (136-145); UREA NITROGEN, BLOOD 42 mg/dL (7-18)
[2017-11-15 08:00] VITALS: BP 100/52
[2017-11-15 08:54] LABS: RED BLOOD CELL COUNT(AUTO) 3.02 MIL/uL (4.5-6.0); WHITE BLOOD COUNT (AUTO) 10.6 K/uL (4.3-11.0)
[2017-11-15 08:56] LABS: HEMATOCRIT 22 % (39-51); MEAN CORPUSCULAR HGB CONC 32 g/dl (31.0-36.0); MEAN CORPUSCULAR VOLUME 73 fL (80-96); RDW COEFFICIENT OF VARIATION 22.8 (11.5-15.0)
[2017-11-15 08:57] LABS: BASOPHILS # (AUTO) 0.1 /CMM (0.0-0.2); BASOPHILS % (AUTO) 0.7 % (0.0-2.0); EOSINOPHILS % (AUTO) 0.7 % (0.0-6.0); LYMPHOCYTES # (AUTO) 1.5 /CMM (0.8-4.8); MONOCYTES # (AUTO) 0.5 /CMM (0.1-1.30); NEUTROPHILS # (AUTO) 8.4 /CMM (1.8-8.9); NEUTROPHILS % (AUTO) 79.6 % (43.0-81.0); PLATELET COUNT (AUTO) 311 /CMM (150-450)
[2017-11-15] MEDS: ASCORBIC ACID 500 MG TABLET PO SCH (09:25)
[2017-11-15] MEDS: SEVELAMER CARBONATE 800 MG TABLET PO SCH ×3 (09:25→17:01)
[2017-11-15] MEDS: LEVOTHYROXINE SODIUM 100 MCG TABLET PO SCH (09:25)
[2017-11-15] MEDS: ZINC SULFATE 220 MG CAPSULE PO SCH (09:25)
[2017-11-15] MEDS: POLYETHYLENE GLYCOL 3350 17 GM POWD.PACK PO SCH (09:25)
[2017-11-15] MEDS: CLOPIDOGREL BISULFATE 75 MG TABLET PO SCH (09:25)
[2017-11-15] MEDS: ASPIRIN 81 MG TAB.CHEW PO SCH (09:26)
[2017-11-15] MEDS: BRIMONIDINE TARTRATE OPHT SOLN 5 ML BOTTLE RIGHTEYE SCH ×3 (09:26→17:01)
[2017-11-15] MEDS: DRONEDARONE HYDROCHLORIDE 400 MG TABLET PO SCH ×2 (09:26→17:01)
[2017-11-15] MEDS: NEOMY SULF/BACITRAC ZN/POLY 15 GM TUBE TP SCH (09:26)
[2017-11-15] MEDS: DULOXETINE HCL 30 MG CAPSULE.DR PO SCH (09:26)
[2017-11-15] MEDS: VIT B CMPLX 3/FA/VIT C/BIOTIN 1 TAB TABLET PO SCH (09:26)
[2017-11-15] MEDS: prednisoLONE ACET 1% OPHT DROP 5 ML BOTTLE RIGHTEYE SCH ×4 (09:32→20:35)
[2017-11-15] MEDS: HYDROCODONE/APAP 5/325MG 1 EACH TABLET PO PRN (09:38)
[2017-11-15] MEDS: MODAFINIL 100 MG TABLET PO SCH (09:38)
[2017-11-15] MEDS ORDERED: EPOETIN ALFA (10,000 UNIT) 10,000 UNIT/ML VIAL IV ONE (10:30)
[2017-11-15] MEDS ORDERED: PHYTONADIONE INJ 10 MG in IV D5W 50 ML IV ONE (11:00)
[2017-11-15] MEDS ORDERED: VANCOMYCIN 500 MG in IV D5W 100 ML IV PRN (12:00)
[2017-11-15 12:23] LABS: EOSINOPHILS % (MANUAL) 1 % (0-4); LYMPHOCYTES % (MANUAL) 8 % (16-48); MONOCYTES % (MANUAL) 6 % (0-11.0); NEUTROPHILS % (MANUAL) 85 (42-76)
[2017-11-15 12:28] LABS: FERRITIN 598 ng/mL (8-388)
[2017-11-15 13:14] LABS: IRON, SERUM 19 ug/dl (50-175); TOTAL IRON BINDING CAPACITY 140 ug/dl (250-450)
[2017-11-15] MEDS ORDERED: FEE PK DOSING 1 MIN EA MC ONE ×2 (13:31→13:48)
[2017-11-15] MEDS ORDERED: VANCOMYCIN 1 GM in IV D5W 250 ML IV PRN (14:00)
[2017-11-15 15:35] VITALS: BP 92/43
[2017-11-15 16:00] VITALS: BP 92/43
[2017-11-15 16:05] VITALS: BP 93/52
--- NOTE | 2017-11-15 16:05 | NUR ---
1 UNIT OF PACKED RED BLOOD CELLS GIVEN TO PATIENT BY DIALYSIS NURSE.
--- NOTE | 2017-11-15 18:26 | NUR ---
MS RN CLOSING NOTES PATIENT IS IN NO APPARENT DISTRESS. BEDSIDE RAILS ARE UPX2. BED IS LOCKED AND LOWERED. CALL LIGHT IS WITHIN REACH. IV LINE IS INTACT AND PATENT. ALL NEEDS WERE MET. WILL ENDORSE CARE TO PARKING OFFICER NURSE FOR CRYSTAL.
--- NOTE | 2017-11-15 19:10 | NUR ---
MS RN NOTES Received patient A/O X2, awake on semi-Johnson's position on bed with patent peripheral IV line L dorsal hand G#22. With O2 inhalation via NC tolerated well @ 2LPM as ordered, no SOB/respiratory distress noted. With FC indwelling well with clear yellow urine output at 150 cc level. With intermittent wound vac on R foot. S/P BT in am. on NPO except meds. No complaints of discomfort at this time. For EGD/colonoscopy tomorrow. Will monitor accordingly.
[2017-11-15 20:00] VITALS: BP 114/67
[2017-11-15] MEDS ORDERED: PEG 3350/NA SULF,BICARB,CL/KCL 4,000 ML BOTTLE PO ONE (20:00)
--- NOTE | 2017-11-15 20:20 | NUR ---
MS RN NOTES Initiated bowel prep with Golyte soln as ordered. Encourage to take prep soln as tolerated. Will monitor closely.
[2017-11-15] MEDS: INSULIN GLARGINE, 100 UNIT/ML CARTRIDGE SQ SCH (22:00)
[2017-11-15] MEDS: TAMSULOSIN 0.4 MG CAP.SR.24H PO SCH (22:40)
[2017-11-15] MEDS: ATORVASTATIN 10 MG TABLET PO SCH (22:40)
--- NOTE | 2017-11-15 22:48 | NUR ---
MS BANUELOS NOTES Blood sugar - 132mg/dl. Hold HS Lantus 25 units. Addendum: 11/16/17 at 0549 by DENIS GLORIA RN Lantus 10 units.
[2017-11-15] MEDS: ALBUTEROL FS 2.5 MG/0.5 ML VIAL.NEB NEB SCH (23:30)
[2017-11-16] MEDS: PIPERACILLIN /TAZOBACTAM 2.25 G in IV D5W 50 ML IV SCH (04:44)
--- NOTE | 2017-11-16 05:06 | NUR ---
RT NOTE WAS JUST MADE AWARE OF PATIENTS ROUTINE TREATMENTS. WILL FOLLOW UP WITH RTS TO CONTINUE TREATMENTS.
[2017-11-16] MEDS: HYDROCODONE/APAP 5/325MG 1 EACH TABLET PO PRN ×2 (05:52→20:08)
--- NOTE | 2017-11-16 06:51 | NUR ---
MS BANUELOS CLOSING NOTES Patient awake with on Johnson's position on bed, no SOB/respiratory distress noted. With FC noted output 150ml cloudy yellow urine. Bowel prep initiated last night but patient noted no bowel output, able to consume approximately 2000mL of Golyte Soln. Kept clean and dry. Endorsed to the next shift. Addendum: 11/16/17 at 0700 by DENIS GLORIA RN Bladder scan - 0. Urinary bladder not palpable.
[2017-11-16 07:05] LABS: INR 1.29 (0.87-1.13)
[2017-11-16 07:17] LABS: CALCIUM, SERUM 8.2 mg/dL (8.5-10.1); CARBON DIOXIDE 30 mmol/L (21-32); CHLORIDE 101 mmol/L (98-107); CREATININE 2.9 mg/dL (0.6-1.3); GLUCOSE 127 mg/dL (74-106); MAGNESIUM 1.8 mg/dL (1.8-2.4); PHOSPHORUS 3.3 mg/dL (2.5-4.9); SODIUM SERUM 139 mmol/L (136-145); UREA NITROGEN, BLOOD 33 mg/dL (7-18)
--- NOTE | 2017-11-16 07:32 | NUR ---
MS RN OPENING NOTES RECEIVED PATIENT IN STABLE CONDITION. IN NO APPARENT DISTRESS. BEDSIDE RAILS ARE UPX2. BED IS LOCKED AND LOWERED. CALL LIGHT IS WITHIN REACH. IV LINE IS INTACT AND PATENT. WOUND VAC IS ATTACHED AND WORKING. WILL CONTINUE TO MONITOR PATIENT.
[2017-11-16] MEDS: ALBUTEROL FS 2.5 MG/0.5 ML VIAL.NEB NEB SCH ×4 (07:35→22:57)
[2017-11-16 08:00] VITALS: BP_SYST 100; BP_SYST 146; BP_DIAS 51; BP_DIAS 75
[2017-11-16] MEDS ORDERED: NEPRO VAN 237 ML CAN PO PRN (08:00)
[2017-11-16 08:08] LABS: HEMATOCRIT 25 % (39-51); HEMOGLOBIN 7.9 g/dL (13.5-17.5); LYMPHOCYTES % (AUTO) 13.1 % (20.0-44.0); MEAN CORPUSCULAR HGB CONC 31 g/dl (31.0-36.0); MEAN CORPUSCULAR VOLUME 75 fL (80-96); NEUTROPHILS % (AUTO) 79.6 % (43.0-81.0); PLATELET COUNT (AUTO) 318 /CMM (150-450); RDW COEFFICIENT OF VARIATION 22.4 (11.5-15.0); RED BLOOD CELL COUNT(AUTO) 3.37 MIL/uL (4.5-6.0); WHITE BLOOD COUNT (AUTO) 9.5 K/uL (4.3-11.0)
[2017-11-16 08:09] LABS: BASOPHILS # (AUTO) 0.1 /CMM (0.0-0.2); BASOPHILS % (AUTO) 0.8 % (0.0-2.0); EOSINOPHILS % (AUTO) 0.6 % (0.0-6.0); LYMPHOCYTES # (AUTO) 1.2 /CMM (0.8-4.8); MONOCYTES # (AUTO) 0.6 /CMM (0.1-1.30); MONOCYTES % (AUTO) 5.9 % (2.0-12.0); NEUTROPHILS # (AUTO) 7.5 /CMM (1.8-8.9)
[2017-11-16] MEDS ORDERED: ANESTHESIA TRAY IN PYXIS 1 EA TRAY MC ONE (08:36)
[2017-11-16] MEDS: CLOPIDOGREL BISULFATE 75 MG TABLET PO SCH (08:44)
[2017-11-16] MEDS: MODAFINIL 100 MG TABLET PO SCH (08:44)
[2017-11-16] MEDS: ASPIRIN 81 MG TAB.CHEW PO SCH (08:44)
[2017-11-16] MEDS: DRONEDARONE HYDROCHLORIDE 400 MG TABLET PO SCH ×2 (08:44→17:04)
[2017-11-16] MEDS: SEVELAMER CARBONATE 800 MG TABLET PO SCH ×3 (08:44→17:04)
[2017-11-16] MEDS: BRIMONIDINE TARTRATE OPHT SOLN 5 ML BOTTLE RIGHTEYE SCH ×3 (08:44→17:04)
[2017-11-16] MEDS: ZINC SULFATE 220 MG CAPSULE PO SCH (08:44)
[2017-11-16] MEDS: prednisoLONE ACET 1% OPHT DROP 5 ML BOTTLE RIGHTEYE SCH ×4 (08:44→20:57)
[2017-11-16] MEDS: DULOXETINE HCL 30 MG CAPSULE.DR PO SCH (08:44)
[2017-11-16] MEDS: NEOMY SULF/BACITRAC ZN/POLY 15 GM TUBE TP SCH (08:44)
[2017-11-16] MEDS: LEVOTHYROXINE SODIUM 100 MCG TABLET PO SCH (08:44)
[2017-11-16] MEDS: ASCORBIC ACID 500 MG TABLET PO SCH (08:44)
[2017-11-16] MEDS: VIT B CMPLX 3/FA/VIT C/BIOTIN 1 TAB TABLET PO SCH (08:44)
[2017-11-16] MEDS: POLYETHYLENE GLYCOL 3350 17 GM POWD.PACK PO SCH (08:45)
--- NOTE | 2017-11-16 09:06 | NUR ---
WOUND CARE: PT HAS KCI VAC TO RT FOOT AT 125mmHg CONTINUOUS SETTING, NO DRAINAGE. DPM FOLLOWING PT.
--- NOTE | 2017-11-16 09:17 | NUR ---
EGD/ COLONOSCOPY PROCEDURE CANCELLED PER GI DOCTOR MARK.
[2017-11-16] MEDS ORDERED: LINEZOLID RTU BAG 600 MG in PREMIX 1 EA IV SCH (10:30)
[2017-11-16] MEDS: LINEZOLID 600 MG TABLET PO SCH ×2 (11:50→20:08)
[2017-11-16] MEDS: MEROPENEM 500 MG in IV NS 0.9% 50 ML IV SCH ×2 (13:48→20:57)
[2017-11-16] MEDS: SOD FERRIC GLUC 125 MG in IV NS 0.9% 100 ML IV SCH (14:51)
[2017-11-16 16:00] VITALS: BP 94/54
--- NOTE | 2017-11-16 18:41 | NUR ---
MS RN CLOSING NOTES PATIENT IS IN STABLE CONDITION. BEDSIDE RAILS ARE UPX2. BED IS LOCKED AND LOWERED. CALL LIGHT IS WITHIN REACH. IV LINE IS INTACT AND PATENT. ALL NEEDS WERE MET. NO SOB. WILL ENDORSE CARE TO GAS DESULFURIZER NURSE FOR CRYSTAL.
--- NOTE | 2017-11-16 19:00 | NUR ---
RN INITIAL NOTES Received patient awake on Johnson's position on bed with special air mattress on. Right foot on the the floor. Patient noted holding the wound vac tube disconnected. With patent peripheral IV line LFA G#22, SL. With FC indwelling well with cloudy yellow urine output @ 50cc level. With intermittent wound vac on right foot with scanty serosanguineous output. On room air at this time, saturating @ 100%, no SOB/respiratory distress noted. Kept right foot up on bed. Reconnected wound vac tube ensuring in proper wokingnRepositioned patient to bed comfortably with LAP WELDER. Patient insist to get out of bed claiming he will go home and kept on mentioning names of people not around that he will talk to them. Reorient the patient to place and time. Patient continue to insist. Kept bed low and locked, siderails up X3, bed alarm on. Will monitor accordingly.
[2017-11-16 20:00] VITALS: BP 117/64
--- NOTE | 2017-11-16 20:26 | NUR ---
MS RN NOTES Patient noted getting out of bed and confused. Put back the right foot and repositioned to center of bed but patient insist to move out of bed. Patient noted climbing up the bed, disconnecting wound vac tubing. Patient is agitated if reprimanded. Notified HELENA FUNEZ is assigned to sit the patient.
[2017-11-16] MEDS: TAMSULOSIN 0.4 MG CAP.SR.24H PO SCH (21:18)
[2017-11-16] MEDS: INSULIN GLARGINE, 100 UNIT/ML CARTRIDGE SQ SCH (21:19)
[2017-11-16] MEDS: ATORVASTATIN 10 MG TABLET PO SCH (21:19)
--- NOTE | 2017-11-16 21:20 | NUR ---
MS RN NOTES Patient noted sitting on bed, right foot on the floor, wound vac tube disconnected. Sitter at bedside. Offered due meds, explained each indication, explained to patient 3x, patient refused to take meds. Will continue to monitor.
--- NOTE | 2017-11-17 02:46 | NUR ---
MS RN NOTES PER HAWK MISSILE SYSTEM CREWMEMBER, AROUND 0230AM PATIENT WAS NOTED NAKED ON BED, AND PERIPHERAL IV LFA WAS PULLED OUT, NEEDLE WAS INTACT. PRESSURE WAS APPLIED TO STOP BLEEDING. PATIENT REMAINED CONFUSED AND AGITATED. 1-ON-1 SITTER ON GOING.
--- NOTE | 2017-11-17 03:30 | NUR ---
MS RN NOTES Patient noted with small amount bowel movement, soft, unformed. Sample for blood occult test taken. Cleaned patient. Wound care on bilateral ischium done as ordered. Kept on bed comfortable. Noted asleep at this time.
--- NOTE | 2017-11-17 05:20 | NUR ---
MS RN NOTES Able to convince patient for peripheral IV reinsertion. Successfully establish IV line on RFA G#22, SL after second attempt. Tolerated procedure well.
--- NOTE | 2017-11-17 06:31 | NUR ---
MS RN CLOSING NOTES Patient asleep on Johnson's position on bed, with newly reinserted peripheral IV line RFA G#22, SL. Blood occult sample collected, ready for collection, stored in the specimen fridge. Refused to put on O2 inhalation. Cooperated in cleaning and dressing, tolerated the procedure well with minimal SOB noted. FC in placed with total of 125ml orange cloudy urine output. BM twice. Refused some routine meds. Kept clean and comfortable. Call light within easy reach, patient noted not using. Bed low and locked, alarm on. All needs attended. Endorsed to the next shift.
[2017-11-17 07:35] LABS: HEMATOCRIT 27 % (39-51); HEMOGLOBIN 8.4 g/dL (13.5-17.5); MEAN CORPUSCULAR HGB CONC 31 g/dl (31.0-36.0); MEAN CORPUSCULAR VOLUME 76 fL (80-96); PLATELET COUNT (AUTO) 396 /CMM (150-450); RDW COEFFICIENT OF VARIATION 23.3 (11.5-15.0); RED BLOOD CELL COUNT(AUTO) 3.53 MIL/uL (4.5-6.0); WHITE BLOOD COUNT (AUTO) 10.4 K/uL (4.3-11.0)
[2017-11-17] MEDS: ALBUTEROL FS 2.5 MG/0.5 ML VIAL.NEB NEB SCH ×3 (07:48→23:13)
[2017-11-17 07:51] LABS: CALCIUM, SERUM 8.6 mg/dL (8.5-10.1); CARBON DIOXIDE 29 mmol/L (21-32); CHLORIDE 96 mmol/L (98-107); CREATININE 3.6 mg/dL (0.6-1.3); GLUCOSE 133 mg/dL (74-106); POTASSIUM 4.4 mmol/L (3.5-5.1); SODIUM SERUM 136 mmol/L (136-145); UREA NITROGEN, BLOOD 44 mg/dL (7-18)
--- NOTE | 2017-11-17 07:59 | NUR ---
MS RN OPENING NOTES RECEIVED PT FROM NIGHTSHIFT NURSE IN STABLE CONDITION. PT IS A/O X2. NO SOB OR SIGNS OF ACUTE DISTRESS NOTED. BREATHING IS EVEN AND UNLABORED. PT ON RA AND SATING WELL @ 97%. HE DENIES ANY PAIN AT THIS TIME. ROTH CATHETER INTACT AND NOTED TO BE DRAINING CLEAR, YELLOW URINE. WOUND VAC TO RIGHT LOWER EXTREMITY NOTED TO BE DRAINING AT ORDERED RATE. NO OUTPUT NOTED AT THIS TIME. IV TO RIGHT FA NOTED TO BE PATENT AND INTACT. NO REDNESS OR SIGNS OF INFILTRATION NOTED. BED IN LOW LOCKED POSITION, SIDE RAILS UP X2, CALL LIGHT WITHIN PT'S REACH, BED ALARM ON, CONTACT ISOLATION OBSERVED, 1:1 SITTER AT BEDSIDE. WILL CONTINUE TO MONITOR
[2017-11-17 08:00] VITALS: BP 125/85
[2017-11-17] MEDS: VIT B CMPLX 3/FA/VIT C/BIOTIN 1 TAB TABLET PO SCH (08:38)
[2017-11-17] MEDS: ASPIRIN 81 MG TAB.CHEW PO SCH (08:38)
[2017-11-17] MEDS: SEVELAMER CARBONATE 800 MG TABLET PO SCH ×3 (08:38→17:13)
[2017-11-17] MEDS: MODAFINIL 100 MG TABLET PO SCH (08:38)
[2017-11-17] MEDS: LINEZOLID 600 MG TABLET PO SCH ×2 (08:38→21:22)
[2017-11-17] MEDS: ZINC SULFATE 220 MG CAPSULE PO SCH (08:38)
[2017-11-17] MEDS: ASCORBIC ACID 500 MG TABLET PO SCH (08:38)
[2017-11-17] MEDS: CLOPIDOGREL BISULFATE 75 MG TABLET PO SCH (08:38)
[2017-11-17] MEDS: BRIMONIDINE TARTRATE OPHT SOLN 5 ML BOTTLE RIGHTEYE SCH ×3 (08:39→17:14)
[2017-11-17] MEDS: LEVOTHYROXINE SODIUM 100 MCG TABLET PO SCH (08:39)
[2017-11-17] MEDS: prednisoLONE ACET 1% OPHT DROP 5 ML BOTTLE RIGHTEYE SCH ×4 (08:39→21:23)
[2017-11-17] MEDS: DRONEDARONE HYDROCHLORIDE 400 MG TABLET PO SCH ×2 (08:39→17:13)
[2017-11-17] MEDS: DULOXETINE HCL 30 MG CAPSULE.DR PO SCH (08:39)
[2017-11-17] MEDS: NEOMY SULF/BACITRAC ZN/POLY 15 GM TUBE TP SCH (08:40)
[2017-11-17] MEDS: MEROPENEM 500 MG in IV NS 0.9% 50 ML IV SCH ×2 (08:41→21:22)
[2017-11-17] MEDS: POLYETHYLENE GLYCOL 3350 17 GM POWD.PACK PO SCH (08:42)
[2017-11-17 09:15] LABS: LYMPHOCYTES % (MANUAL) 9 % (16-48); MONOCYTES % (MANUAL) 3 % (0-11.0); NEUTROPHILS % (MANUAL) 88 (42-76)
--- NOTE | 2017-11-17 11:22 | NUR ---
MS RN NOTES: HD PT S/P HD. 2.5L REMOVED. VITALS STABLE. WILL CONTINUE TO MONITOR
[2017-11-17] MEDS ORDERED: EPOETIN ALFA (10,000 UNIT) 10,000 UNIT/ML VIAL IV ONE (12:30)
[2017-11-17] MEDS: SOD FERRIC GLUC 125 MG in IV NS 0.9% 100 ML IV SCH (13:25)
[2017-11-17 16:00] VITALS: BP 98/71
--- NOTE | 2017-11-17 16:04 | NUR ---
MS RN NOTES: WOUND TX PT SEEN AND ASSESSED BY DR. LEVY. DEBRIDEMENT OF THE PT'S RIGHT HEEL ALONG WITH AN APPLICATION OF A NEW WOUND VAC WAS COMPLETED. PT REMAINS STAB;E. WILL CONTINUE TO MONITOR AND CHANGES DRESSINGS PRN
[2017-11-17 18:29] LABS: OCCULT BLOOD STOOL NEGATIVE (NEGATIVE)
--- NOTE | 2017-11-17 18:52 | NUR ---
MS RN CLOSING NOTES PT REMAINS STABLE. ALL NEEDS WERE MET DURING SHIFT AND ORDERS CARRIED OUT ACCORDINGLY. WOUND AND SKIN CARE RENDERED ORDERED. PT WAS REPOSITIONED AND TURNED PER HOSPITAL PROTOCOL. ROTH CATHETER REMAINS PATENT AND INTACT. WOUND VAC REMAINS PATENT AND INTACT. NO OUTPUT NOTED AT THIS TIME. BED IN LOW LOCKED POSITION, SIDE RAILS UP X2, CALL LIGHT WITHIN REACH, BED ALARM ON. 1:1 SITTER AT BEDSIDE. WILL CONTINUE TO MONITOR
--- NOTE | 2017-11-17 19:20 | NUR ---
rn ms opening notes received patient in bed awake, alert and oriented x1-2 , noted with episode of confusion and forgetfulness, respirations even and unlabored currently patient is on room air 02 sat at 95% with no apparent distress appears comfortable , patient noted to remove nasal cannula, also noted patient with frequent moving of right leg when in bed and placing over railing with attempts to getting up, upon assessment noted wound vac with air leakage, reinforced and sealed,working properly with suction working well, holliday catheter intact noted draining urine yellow color,right chest dialysis line intact with dry dressing in place, iv site to right fa #22 sl intact and patent no redness, no infiltration present, sitter is at bedside for fall and safety precautions, safety precautions in place low bed and locked, bed alarm on , fluids offered as tolerated, oriented to staff and call light and in place, all needs attended at this time, will continue to monitor patient remains comfortable.
[2017-11-17 20:00] VITALS: BP_SYST 104; BP_SYST 116; BP_DIAS 65; BP_DIAS 68
[2017-11-17] MEDS: ATORVASTATIN 10 MG TABLET PO SCH (21:22)
[2017-11-17] MEDS: TAMSULOSIN 0.4 MG CAP.SR.24H PO SCH (21:22)
--- NOTE | 2017-11-17 22:30 | NUR ---
rn ms notes noted patient with episode of pulling on medical equipment and wound vac and striking at staff noted based on assessment patient unable to sleep, medication offered to aide with sleep patient agreed to take.
--- NOTE | 2017-11-17 22:40 | NUR ---
rn ms notes patient is now refusing sleep medication when offered will continue to monitor.
[2017-11-17] MEDS: INSULIN GLARGINE, 100 UNIT/ML CARTRIDGE SQ SCH (22:44)
--- NOTE | 2017-11-18 01:40 | NUR ---
rn ms notes offered melvin as ordered noted patient remains awake, refused,
--- NOTE | 2017-11-18 03:04 | NUR ---
rn ms notes ambien 5mg wasted recorded with 2 rn
--- NOTE | 2017-11-18 06:05 | NUR ---
rn ms notes proper weight taken with bed scale at 257 lbs
--- NOTE | 2017-11-18 07:07 | NUR ---
rn ms closing notes patient in bed awake, alert and oriented x1-2 , noted with episode of confusion and forgetfulness, respirations even and unlabored currently patient is on 02 2L sat at 95% with no apparent distress appears comfortable ,right leg wound vac intact and sealed,working properly with suction working well, holliday catheter intact noted draining urine yellow color,right chest dialysis line intact with dry dressing in place, iv site to right fa #22 sl intact and patent no redness, no infiltration present, sitter is at bedside for fall and safety precautions, safety precautions in place low bed and locked, bed alarm on , fluids offered as tolerated, call light and in place within reach, all needs attended at this time, will continue to monitor and endorse to next shift. patient remains comfortable.
[2017-11-18] MEDS: ALBUTEROL FS 2.5 MG/0.5 ML VIAL.NEB NEB SCH ×3 (07:29→23:58)
--- NOTE | 2017-11-18 07:40 | NUR ---
RN OPENING NOTES RECEIVED PT. PT IS STABLE AND RESTING IN BED. NO S/S OF RESP DISTRESS OR SOB. NO C/O PAIN AT THIS TIME. SITTER IS AT BEDSIDE. PT APPEARS LETHARGIC BUT A/OX3. FC PATENT AND IN PLACE, 200 ML URINE IN COLLECTION BAG. WOUND VAC CURRENTLY SET TO 125 MMHG OF SUCTION, HOWEVER WOUND VAC APPLICATION WAS PARTIALLY REMOVED BY PT OVERNIGHT, PM NURSE ATTEMPTED TO REINFORCE/REAPPLY VAC DRESSING. NEW WOUND VAC DRESSING ORDERED FROM [facility], AWAITING DELIVERY. SAFETY MEASURES IN PLACE, CALL LIGHT WITHIN REACH. WILL CONTINUE TO MONITOR.
[2017-11-18 08:00] VITALS: BP 102/62
[2017-11-18] MEDS: ZINC SULFATE 220 MG CAPSULE PO SCH (08:32)
[2017-11-18] MEDS: DRONEDARONE HYDROCHLORIDE 400 MG TABLET PO SCH ×2 (08:32→17:16)
[2017-11-18] MEDS: LEVOTHYROXINE SODIUM 100 MCG TABLET PO SCH (08:32)
[2017-11-18] MEDS: CLOPIDOGREL BISULFATE 75 MG TABLET PO SCH (08:32)
[2017-11-18] MEDS: SEVELAMER CARBONATE 800 MG TABLET PO SCH ×3 (08:32→17:17)
[2017-11-18] MEDS: ASPIRIN 81 MG TAB.CHEW PO SCH (08:33)
[2017-11-18] MEDS: DULOXETINE HCL 30 MG CAPSULE.DR PO SCH (08:33)
[2017-11-18] MEDS: VIT B CMPLX 3/FA/VIT C/BIOTIN 1 TAB TABLET PO SCH (08:33)
[2017-11-18] MEDS: LINEZOLID 600 MG TABLET PO SCH ×2 (08:33→20:38)
[2017-11-18] MEDS: ASCORBIC ACID 500 MG TABLET PO SCH (08:33)
[2017-11-18] MEDS: MODAFINIL 100 MG TABLET PO SCH (08:33)
[2017-11-18] MEDS: MEROPENEM 500 MG in IV NS 0.9% 50 ML IV SCH (08:34)
[2017-11-18] MEDS: POLYETHYLENE GLYCOL 3350 17 GM POWD.PACK PO SCH (08:34)
[2017-11-18] MEDS: prednisoLONE ACET 1% OPHT DROP 5 ML BOTTLE RIGHTEYE SCH ×4 (08:48→20:39)
[2017-11-18] MEDS: NEOMY SULF/BACITRAC ZN/POLY 15 GM TUBE TP SCH (08:48)
[2017-11-18] MEDS: BRIMONIDINE TARTRATE OPHT SOLN 5 ML BOTTLE RIGHTEYE SCH ×3 (08:48→17:34)
[2017-11-18 09:00] VITALS: BP 102/64
[2017-11-18] MEDS: SOD FERRIC GLUC 125 MG in IV NS 0.9% 100 ML IV SCH (15:03)
[2017-11-18 16:00] VITALS: BP 113/64
[2017-11-18] MEDS: CEFEPIME 2 GM in IV D5W 100 ML IV SCH (17:34)
--- NOTE | 2017-11-18 18:24 | NUR ---
RN CLOSING NOTE PT IN BED RESTING. NO S/S OF RESP DISTRESS OR SOB. NO C/O PAIN AT THIS TIME. PT AWAITING F/U FROM DR. MARTIN REGARDING RIGHT FOOT WOUND VAC. PER REPORT FROM PREVIOUS PM NURSE, PT HAD PARTIALLY REMOVED VAC DRESSING, WOUND VAC MAY NOT BE CORRECTLY FUNCTIONING. DRESSING TO BE REAPPLIED BY MD . ALL PT NEEDS ANTICIPATED AND MET SAFETY MEASURES IN PLACE, CALL LIGHT WITHIN REACH. WILL ENDORSE TO PLASTIC STRAIGHTENING ROLL OPERATOR FOR CRYSTAL.
--- NOTE | 2017-11-18 19:30 | NUR ---
RN MS OPENING NOTES RECEIVED PATIENT IN BED ASLEEP. AROUSABLE TO NAME AND TOUCH. BREATHING EVEN AND UNLABORED. NO SOB NOTED - ON O2 VIA NC. NO COMPLAINTS OF PAIN OR DISCOMFORT. NO FACIAL GRIMACING. IV ACCESS ON RIGHT FOREARM #22 INTACT AND PATENT. SKIN DRY AND WARM TO TOUCH. AFEBRILE. PATIENT NOTED WITH WOUND VAC. PER DAY NURSE, WOUND VAC MAY NOT BE ENTIRELY IN PLACE. WOUND MD TO RE-APPLY. ALL OTHER NEEDS ATTENDED TO. SAFETY MEASURES IN PLACE. SITTER AT BESIDE. CALL LIGHT WITHIN REACH. WILL CONTINUE TO MONITOR
[2017-11-18 20:00] VITALS: BP 115/68
[2017-11-18] MEDS: ATORVASTATIN 10 MG TABLET PO SCH (21:34)
[2017-11-18] MEDS: TAMSULOSIN 0.4 MG CAP.SR.24H PO SCH (21:34)
[2017-11-18] MEDS: INSULIN GLARGINE, 100 UNIT/ML CARTRIDGE SQ SCH (21:42)
--- NOTE | 2017-11-19 06:41 | NUR ---
RN MS CLOSING NOTES PATIENT IN BED ASLEEP. AROUSABLE TO NAME AND TOUCH. SITTER AT BEDSIDE. NO ACUTE CHANGES THROUGHOUT SHIFT. BREATHING EVEN AND UNLABORED. NO SOB NOTED - ON O2 VIA NC. NO COMPLAINTS OF PAIN OR DISCOMFORT. NO FACIAL GRIMACING. IV ACCESS ON RIGHT FOREARM #22 INTACT AND PATENT. SKIN DRY AND WARM TO TOUCH. AFEBRILE. PATIENT WOUND VAC ON RIGHT FOOT - DRESSING INTACT. PER DAY NURSE, WOUND VAC MAY NOT BE ENTIRELY IN PLACE - MD AWARE. WOUND MD TO RE-APPLY. ALL OTHER NEEDS ATTENDED TO. KEPT CLEAN, DRY AND COMFORTABLE. WOUND CARE DONE. SAFETY MEASURES IN PLACE. CALL LIGHT WITHIN REACH. WILL ENDORSE TO ONCOMING NURSE FOR CONTINUITY OF CARE.
[2017-11-19 06:43] LABS: HEMATOCRIT 26 % (39-51); HEMOGLOBIN 7.9 g/dL (13.5-17.5); MEAN CORPUSCULAR HGB CONC 31 g/dl (31.0-36.0); MEAN CORPUSCULAR VOLUME 76 fL (80-96); PLATELET COUNT (AUTO) 387 /CMM (150-450); RDW COEFFICIENT OF VARIATION 24.4 (11.5-15.0); RED BLOOD CELL COUNT(AUTO) 3.36 MIL/uL (4.5-6.0); WHITE BLOOD COUNT (AUTO) 9.3 K/uL (4.3-11.0)
[2017-11-19 07:16] LABS: CALCIUM, SERUM 7.7 mg/dL (8.5-10.1); CARBON DIOXIDE 32 mmol/L (21-32); CHLORIDE 101 mmol/L (98-107); CREATININE 4.4 mg/dL (0.6-1.3); GLUCOSE 90 mg/dL (74-106); MAGNESIUM 2.2 mg/dL (1.8-2.4); PHOSPHORUS 4.6 mg/dL (2.5-4.9); POTASSIUM 4.3 mmol/L (3.5-5.1); SODIUM SERUM 141 mmol/L (136-145); UREA NITROGEN, BLOOD 42 mg/dL (7-18)
[2017-11-19 07:35] LABS: LYMPHOCYTES % (MANUAL) 9 % (16-48); MONOCYTES % (MANUAL) 9 % (0-11.0); NEUTROPHILS % (MANUAL) 82 (42-76)
[2017-11-19] MEDS: ALBUTEROL FS 2.5 MG/0.5 ML VIAL.NEB NEB SCH ×3 (08:42→23:26)
[2017-11-19] MEDS: ASCORBIC ACID 500 MG TABLET PO SCH (08:54)
[2017-11-19] MEDS: CLOPIDOGREL BISULFATE 75 MG TABLET PO SCH (08:54)
[2017-11-19] MEDS: DULOXETINE HCL 30 MG CAPSULE.DR PO SCH (08:54)
[2017-11-19] MEDS: LEVOTHYROXINE SODIUM 100 MCG TABLET PO SCH (08:54)
[2017-11-19] MEDS: ASPIRIN 81 MG TAB.CHEW PO SCH (08:54)
[2017-11-19] MEDS: DRONEDARONE HYDROCHLORIDE 400 MG TABLET PO SCH ×2 (08:54→17:44)
[2017-11-19] MEDS: LINEZOLID 600 MG TABLET PO SCH ×2 (08:54→21:29)
[2017-11-19] MEDS: ZINC SULFATE 220 MG CAPSULE PO SCH (08:55)
[2017-11-19] MEDS: POLYETHYLENE GLYCOL 3350 17 GM POWD.PACK PO SCH (08:55)
[2017-11-19] MEDS: VIT B CMPLX 3/FA/VIT C/BIOTIN 1 TAB TABLET PO SCH (08:55)
[2017-11-19] MEDS: SEVELAMER CARBONATE 800 MG TABLET PO SCH ×3 (08:55→17:44)
[2017-11-19] MEDS: prednisoLONE ACET 1% OPHT DROP 5 ML BOTTLE RIGHTEYE SCH ×4 (08:59→21:30)
[2017-11-19] MEDS: BRIMONIDINE TARTRATE OPHT SOLN 5 ML BOTTLE RIGHTEYE SCH ×3 (09:00→17:58)
[2017-11-19] MEDS: NEOMY SULF/BACITRAC ZN/POLY 15 GM TUBE TP SCH (09:01)
[2017-11-19] MEDS: HYDROCODONE/APAP 5/325MG 1 EACH TABLET PO PRN (09:06)
[2017-11-19] MEDS: MODAFINIL 100 MG TABLET PO SCH (09:06)
--- NOTE | 2017-11-19 09:21 | NUR ---
RN OPENING NOTES RECEIVED PT. PT IS STABLE AND RESTING IN BED. NO S/S OF RESP DISTRESS OR SOB. NC IN PLACE WITH 2L O2, O2 SAT WNL. PT HAS C/O PAIN IN SACRAL/LOWER BACK AREA 08/28, WILL ADDRESS PHARMACOLOGICALLY. WOUND VAC REAPPLIED BY DR. LEVY IN AM, CURRENTLY IN PLACE ON RIGHT FOOT. SAFETY MEASURES IN PLACE, CALL LIGHT WITHIN REACH. WILL CONTINUE TO MONITOR.
--- NOTE | 2017-11-19 13:16 | NUR ---
RN NOTES PT UNABLE TO RECEIVE PICC LINE. PER PICC NURSE, AICD AND PERMACATH ARE BLOCKING CATHETERS ACCESS TO HEART, PT WILL REQUIRE MIDLINE OR MULTIPLE PERIPHERAL IV INSERTIONS FOR CONTINUED IV ABX THERAPY. WILL F/U WITH HOSPITALIST.
[2017-11-19] MEDS: SOD FERRIC GLUC 125 MG in IV NS 0.9% 100 ML IV SCH (13:57)
[2017-11-19] MEDS ORDERED: ALBUMIN 25% 12.5 GM/50 ML BOTTLE IV ONE (15:00)
[2017-11-19] MEDS: ALBUMIN 25% 25 GM in PREMIX 1 EA IV PRN (15:39)
--- NOTE | 2017-11-19 16:08 | NUR ---
RN NOTES PT COMPLETED DIALYSIS. 1.5 L OUTPUT. VSS, NO S/S OF RESP DISTRESS. NO C/O PAIN AT THIS MOMENT. WILL CONTINUE TO MONITOR.
[2017-11-19] MEDS: CEFEPIME 2 GM in IV D5W 100 ML IV SCH (17:58)
--- NOTE | 2017-11-19 18:45 | NUR ---
RN CLOSING NOTE PT IN BED RESTING, SITTER AT BEDSIDE. NO S/S OF RESP DISTRESS OR SOB. PT IS ON 2L O2 VIA NC. NO C/O PAIN AT THIS TIME. PER MD NOTE, PT REQUIRES FPC IV ABX THERAPY FOR OSTEOMYELITIS OF RLE. PICC LINE NOT POSSIBLE CATHETER CANNOT BE THREADED TO THE PT'S HEART. RECOMMENDING MIDLINE OR MULTIPLE PERIPHERAL LINE INSERTIONS FOR CONTINUED ABX THERAPY. ALL PT NEEDS ANTICIPATED AND MET, SAFETY MEASURES IN PLACE, CALL LIGHT WITHIN REACH. WILL ENDORSE TO RETAIL CLIENT MANAGER FOR CRYSTAL.
--- NOTE | 2017-11-19 19:30 | NUR ---
RN MS OPENING NOTES PATIENT IN BED AWAKE. ALERT AND ORIENTED X2. BREATHING EVEN AND UNLABORED. NO SOB NOTED - ON O2 VIA NC. NO COMPLAINTS OF PAIN OR DISCOMFORT. NO FACIAL GRIMACING. IV ACCESS ON RIGHT FOREARM #22 INTACT AND PATENT. SKIN DRY AND WARM TO TOUCH. AFEBRILE. PATIENT NOTED WITH WOUND VAC AT 125 MMHG. ALL OTHER NEEDS ATTENDED TO. SAFETY MEASURES IN PLACE. SITTER AT BESIDE. CALL LIGHT WITHIN REACH. WILL CONTINUE TO MONITOR
[2017-11-19 20:00] VITALS: BP 118/66
[2017-11-19] MEDS: ATORVASTATIN 10 MG TABLET PO SCH (21:29)
[2017-11-19] MEDS: TAMSULOSIN 0.4 MG CAP.SR.24H PO SCH (21:29)
[2017-11-19] MEDS: INSULIN GLARGINE, 100 UNIT/ML CARTRIDGE SQ SCH (21:56)
--- NOTE | 2017-11-19 21:58 | NUR ---
RN MS NOTES LANTUS 10 UNITS NOT GIVEN DUE TO BLOOD SUGAR OF 97. PATIENT HAS POOR APPETITE. PER DAY NURSE, PATIENT DID NOT EAT HIS MEALS. SNACKS WERE OFFERED BUT PATIENT ONLY TOOK A FEW BITES BEFORE REFUSING THE REST. PER PATIENT HE DOES NOT EAT BECAUSE HE DOES NOT LIKE THE FOOD GIVEN TO HIM. INFORMED PATIENT THAT HE CAN LET HIS NURSE OR RIVER TRANSPORTATION WORKER KNOW THAT HE WOULD LIKE A DIFFERENT MEAL. PER PATIENT HE LIKES "TURKEY". WILL ALSO ENDORSE TO NURSE IN AM.
[2017-11-19] MEDS: HYDROCODONE/APAP 10/325MG 1 EA TABLET PO PRN (22:26)
--- NOTE | 2017-11-20 06:43 | NUR ---
RN MS CLOSING NOTES PATIENT IN BED AWAKE. ALERT AND ORIENTED X2. SITTER AT BEDSIDE. NO ACUTE CHANGES THROUGHOUT SHIFT. BREATHING EVEN AND UNLABORED. NO SOB NOTED - ON O2 VIA NC - ON/OFF PER PATIENT'S PREFERENCE - CAN TOLERATE ROOM AIR. NO COMPLAINTS OF PAIN OR DISCOMFORT. NO FACIAL GRIMACING. IV ACCESS ON RIGHT FOREARM #22 INTACT AND PATENT. SKIN DRY AND WARM TO TOUCH. AFEBRILE. PATIENT WITH WOUND VAC ON RIGHT FOOT - DRESSING INTACT AND DRAINING. ALL OTHER NEEDS ATTENDED TO. KEPT CLEAN, DRY AND COMFORTABLE. SAFETY MEASURES IN PLACE. CALL LIGHT WITHIN REACH. WILL ENDORSE TO ONCOMING NURSE FOR CONTINUITY OF CARE.
--- NOTE | 2017-11-20 07:26 | NUR ---
RN OPENING NOTES RECEIVED PATIENT IN BED RESTING. A/OX2-3. SITTER AT BEDSIDE FOR SAFETY. NO ACUTE DISTRESS. BREATHING EVEN AND UNLABORED. NO SOB NOTED. TOLERATED ROOM AIR, SATTING 93%. NO COMPLAINTS OF PAIN OR DISCOMFORT AT THIS TIME. IV ACCESS INTACT AND PATENT. NOTED PATIENT WITH WOUND VAC ON RIGHT FOOT - DRESSING C/D/I AND DRAINING. KEPT PATIENT COMFORTABLE. SAFETY MEASURES IN PLACE. PATIENT ON AIR MATTRESS. BED IN LOW/LOCKED POSITION, SIDERAILS UP, SEMIFOWLERS, CALL LIGHT WITHIN REACH. WILL CONTINUE TO MONITOR ACCORDINGLY.
[2017-11-20 07:30] LABS: HEMATOCRIT 25 % (39-51); MEAN CORPUSCULAR HGB CONC 32 g/dl (31.0-36.0); MEAN CORPUSCULAR VOLUME 75 fL (80-96); NEUTROPHILS % (AUTO) 83.9 % (43.0-81.0); PLATELET COUNT (AUTO) 296 /CMM (150-450); RDW COEFFICIENT OF VARIATION 23 (11.5-15.0); RED BLOOD CELL COUNT(AUTO) 3.35 MIL/uL (4.5-6.0)
[2017-11-20 07:31] LABS: BASOPHILS % (AUTO) 0.9 % (0.0-2.0); EOSINOPHILS % (AUTO) 1.4 % (0.0-6.0); LYMPHOCYTES % (AUTO) 8.8 % (20.0-44.0)
[2017-11-20 07:36] LABS: CARBON DIOXIDE 30 mmol/L (21-32); CHLORIDE 100 mmol/L (98-107); CREATININE 4.4 mg/dL (0.6-1.3); GLUCOSE 81 mg/dL (74-106); POTASSIUM 4.4 mmol/L (3.5-5.1); SODIUM SERUM 139 mmol/L (136-145); UREA NITROGEN, BLOOD 38 mg/dL (7-18)
[2017-11-20 08:00] VITALS: BP_SYST 110; BP_SYST 111; BP_DIAS 59; BP_DIAS 60
[2017-11-20] MEDS: ALBUTEROL FS 2.5 MG/0.5 ML VIAL.NEB NEB SCH ×3 (08:32→23:22)
[2017-11-20] MEDS: DULOXETINE HCL 30 MG CAPSULE.DR PO SCH (10:00)
[2017-11-20] MEDS: ZINC SULFATE 220 MG CAPSULE PO SCH (10:00)
[2017-11-20] MEDS: ASPIRIN 81 MG TAB.CHEW PO SCH (10:01)
[2017-11-20] MEDS: LINEZOLID 600 MG TABLET PO SCH ×2 (10:01→21:37)
[2017-11-20] MEDS: CLOPIDOGREL BISULFATE 75 MG TABLET PO SCH (10:01)
[2017-11-20] MEDS: VIT B CMPLX 3/FA/VIT C/BIOTIN 1 TAB TABLET PO SCH (10:01)
[2017-11-20] MEDS: ASCORBIC ACID 500 MG TABLET PO SCH (10:01)
[2017-11-20] MEDS: MODAFINIL 100 MG TABLET PO SCH (10:02)
[2017-11-20] MEDS: POLYETHYLENE GLYCOL 3350 17 GM POWD.PACK PO SCH (10:02)
[2017-11-20] MEDS: SEVELAMER CARBONATE 800 MG TABLET PO SCH ×3 (10:11→17:56)
[2017-11-20] MEDS: DRONEDARONE HYDROCHLORIDE 400 MG TABLET PO SCH ×2 (10:11→17:56)
[2017-11-20] MEDS: LEVOTHYROXINE SODIUM 100 MCG TABLET PO SCH (10:13)
[2017-11-20] MEDS: BRIMONIDINE TARTRATE OPHT SOLN 5 ML BOTTLE RIGHTEYE SCH ×3 (10:19→17:57)
[2017-11-20] MEDS: NEOMY SULF/BACITRAC ZN/POLY 15 GM TUBE TP SCH (10:20)
[2017-11-20] MEDS: prednisoLONE ACET 1% OPHT DROP 5 ML BOTTLE RIGHTEYE SCH ×4 (10:20→21:37)
[2017-11-20] MEDS: SOD FERRIC GLUC 125 MG in IV NS 0.9% 100 ML IV SCH (15:36)
[2017-11-20] MEDS: HYDROCODONE/APAP 10/325MG 1 EA TABLET PO PRN (15:37)
[2017-11-20 16:00] VITALS: BP 96/71
[2017-11-20] MEDS: CEFEPIME 2 GM in IV D5W 100 ML IV SCH (17:56)
--- NOTE | 2017-11-20 19:29 | NUR ---
RN CLOSING NOTES PATIENT IN STABLE CONDITION. ALL NEEDS ATTENDED AND PROVIDED. ALL DUE MEDICATIONS GIVEN ORDERED. KEPT PATIENT SAFE AND COMFORTABLE. TURNED AND REPOSITIONED PATIENT EVERY 2 HRS NEEDED. WOUND CARE RENDERED, DRESSING C/D/I. RIGHT FOOT WOUND VAC NOTED WORKING PROPERLY. BED IN LOW/LOCKED POSITION, SIDEAILS UPX2, CALL LIGHT IN REACH. ENDORSED TO NIGHT RN FOR CRYSTAL.
--- NOTE | 2017-11-20 19:30 | NUR ---
RN INITIAL NOTES Received patient in bed watching TV. Alert, oriented x 2. Sitter at bedside for safety. Nnot in any distress.Breathing even and unlabored. No SOB noted. No complaints of discomfort as of this time. IV access intact and patent, on KVO. Noted patient with wound vac on right foot, dressing clean and intact. Patient on air mattress. Bed in low, locked position, siderails up. Call light within reach. Patient stable as per morning nurse RN. Will continue to monitor accordingly
[2017-11-20 20:38] VITALS: BP 97/47
[2017-11-20] MEDS: TAMSULOSIN 0.4 MG CAP.SR.24H PO SCH (21:37)
[2017-11-20] MEDS: ATORVASTATIN 10 MG TABLET PO SCH (21:38)
[2017-11-20] MEDS: INSULIN GLARGINE, 100 UNIT/ML CARTRIDGE SQ SCH (22:00)
--- NOTE | 2017-11-20 22:04 | NUR ---
RN NOTES Patient's blood sugar checked, 126mg/dL. Lantus 10 units not given as patient has very poor appetite. Did not eat lunch. Convinced patient to eat some snacks but patient refused.
[2017-11-21 04:45] VITALS: BP 105/57
--- NOTE | 2017-11-21 06:45 | NUR ---
RN CLOSING NOTES Patient in stable condition. All needs attended and provided. All medications given as ordered. Kept safe and comfortable. Sitter at bedside. Turned and repositioned as needed. Dressing clean, dry and intact.Right foot wound vac in place. Bed in low, locked position. Call puentes within reach. Will endorse CRYSTAL to oncoming RN
[2017-11-21 07:26] LABS: BASOPHILS % (AUTO) 0.2 % (0.0-2.0); HEMATOCRIT 27 % (39-51); HEMOGLOBIN 8.2 g/dL (13.5-17.5); LYMPHOCYTES # (AUTO) 0.9 /CMM (0.8-4.8); LYMPHOCYTES % (AUTO) 9.3 % (20.0-44.0); MEAN CORPUSCULAR HGB CONC 30 g/dl (31.0-36.0); MEAN CORPUSCULAR VOLUME 76 fL (80-96); MONOCYTES # (AUTO) 0.4 /CMM (0.1-1.30); MONOCYTES % (AUTO) 4.5 % (2.0-12.0); PLATELET COUNT (AUTO) 353 /CMM (150-450); RDW COEFFICIENT OF VARIATION 23.8 (11.5-15.0); RED BLOOD CELL COUNT(AUTO) 3.53 MIL/uL (4.5-6.0); WHITE BLOOD COUNT (AUTO) 9.4 K/uL (4.3-11.0)
[2017-11-21] MEDS: ALBUTEROL FS 2.5 MG/0.5 ML VIAL.NEB NEB SCH ×3 (07:29→23:58)
[2017-11-21 07:34] LABS: CALCIUM, SERUM 7.9 mg/dL (8.5-10.1); CARBON DIOXIDE 27 mmol/L (21-32); CHLORIDE 99 mmol/L (98-107); CREATININE 4.9 mg/dL (0.6-1.3); GLUCOSE 105 mg/dL (74-106); MAGNESIUM 2.1 mg/dL (1.8-2.4); PHOSPHORUS 5.2 mg/dL (2.5-4.9); POTASSIUM 4.9 mmol/L (3.5-5.1); SODIUM SERUM 137 mmol/L (136-145); UREA NITROGEN, BLOOD 47 mg/dL (7-18)
[2017-11-21 08:00] VITALS: BP 126/68
--- NOTE | 2017-11-21 08:00 | NUR ---
MS VIN AM NOTES RECEIVED PATIENT IN BED RESTING. A/OX2-3. SITTER AT BEDSIDE FOR SAFETY. NO ACUTE DISTRESS. BREATHING EVEN AND UNLABORED. NO SOB NOTED. TOLERATED ROOM AIR, O2 SAT 94% WITH O2 AT 3L/MIN VIA N/C.. NO COMPLAINTS OF PAIN OR DISCOMFORT AT THIS TIME. IV ACCESS TO RFA H/L INTACT AND PATENT. WITH WOUND VAC ON RIGHT FOOT - DRESSING C/D/I AND DRAINING. KEPT PATIENT COMFORTABLE. SAFETY MEASURES IN PLACE. PATIENT ON AIR MATTRESS. BED IN LOW/LOCKED POSITION,TURNED EVERY TWO HRS. SIDERAILS UP, SEMIFOWLERS, CALL LIGHT WITHIN REACH. WILL CONTINUE TO MONITOR ACCORDINGLY.
[2017-11-21] MEDS: ASCORBIC ACID 500 MG TABLET PO SCH (10:32)
[2017-11-21] MEDS: LINEZOLID 600 MG TABLET PO SCH ×2 (10:32→21:50)
[2017-11-21] MEDS: POLYETHYLENE GLYCOL 3350 17 GM POWD.PACK PO SCH (10:32)
[2017-11-21] MEDS: ZINC SULFATE 220 MG CAPSULE PO SCH (10:32)
[2017-11-21] MEDS: SEVELAMER CARBONATE 800 MG TABLET PO SCH ×3 (10:33→17:25)
[2017-11-21] MEDS: ASPIRIN 81 MG TAB.CHEW PO SCH (10:33)
[2017-11-21] MEDS: BRIMONIDINE TARTRATE OPHT SOLN 5 ML BOTTLE RIGHTEYE SCH ×3 (10:33→17:34)
[2017-11-21] MEDS: CLOPIDOGREL BISULFATE 75 MG TABLET PO SCH (10:33)
[2017-11-21] MEDS: DRONEDARONE HYDROCHLORIDE 400 MG TABLET PO SCH ×2 (10:34→17:26)
[2017-11-21] MEDS: prednisoLONE ACET 1% OPHT DROP 5 ML BOTTLE RIGHTEYE SCH ×4 (10:34→21:51)
[2017-11-21] MEDS: MODAFINIL 100 MG TABLET PO SCH (10:34)
[2017-11-21] MEDS: VIT B CMPLX 3/FA/VIT C/BIOTIN 1 TAB TABLET PO SCH (10:35)
[2017-11-21] MEDS: DULOXETINE HCL 30 MG CAPSULE.DR PO SCH (10:35)
[2017-11-21] MEDS: NEOMY SULF/BACITRAC ZN/POLY 15 GM TUBE TP SCH (10:37)
[2017-11-21] MEDS: LEVOTHYROXINE SODIUM 100 MCG TABLET PO SCH (10:40)
[2017-11-21] MEDS: ALBUMIN 25% 25 GM in PREMIX 1 EA IV PRN (14:21)
--- NOTE | 2017-11-21 14:22 | NUR ---
STARTED PT ON HEMODIALYSIS BP 79/43 HR 71.ADMINISTERED ALBUMIN 25% IV WITH HEMODIALYSIS.
[2017-11-21 14:23] VITALS: BP 79/43
--- NOTE | 2017-11-21 15:00 | NUR ---
BP 97/54 HR 81 NO C/O PAIN OR DISTRESS.
[2017-11-21 16:00] VITALS: BP 103/53
--- NOTE | 2017-11-21 16:30 | NUR ---
Hemodialysis procedure completed with no output and with stable V/S BP 97/54 HR 81.Pt tolerated well.
[2017-11-21] MEDS: CEFEPIME 2 GM in IV D5W 100 ML IV SCH (17:28)
--- NOTE | 2017-11-21 19:30 | NUR ---
MS RN NOTES RECEIVED PATIENT IN BED RESTING AT THIS TIME, APPEARS COMFORTABLE. AROUSES EASILY. A/O X 1-2 , VERBALLY RESPONSIVE, BUT SPEECH UNCLEAR. SITTER AT BEDSIDE. NO DISTRESS, NOR SOB NOTED AT THIS TIME. ON 02 @ 3LPM VIA NC , 02 SATURATION IS 98 %. NO C/O PAIN OR DISCOMFORT AT THIS TIME. IV SITE ON RFA INTACT AND PATENT, NO S/S OF INFILTRATION NOTED. RIGHT SUBCLAVIAN PERMA CATH, INTACT. NO BLEEDING AT THIS TIME. RIGHT FOOT WITH WOUND VAC, DRESSING C/D/I AND DRAINING. NO S/S OF HYPO/ HYPERGLYCEMIA NOTED. KEPT PATIENT COMFORTABLE. SAFETY MEASURES IN PLACE. PATIENT ON AIR MATTRESS. BED IN LOW/LOCKED POSITION,TURNED AND REPOSITION Q 2 HOURS. SAFETY, ASPIRATION OBSERVED. CALL LIGHT WITHIN REACH. WILL CONTINUE TO MONITOR CLOSELY.
[2017-11-21 20:00] VITALS: BP 104/61
[2017-11-21] MEDS: ATORVASTATIN 10 MG TABLET PO SCH (21:50)
[2017-11-21] MEDS: TAMSULOSIN 0.4 MG CAP.SR.24H PO SCH (21:51)
[2017-11-21] MEDS: INSULIN GLARGINE, 100 UNIT/ML CARTRIDGE SQ SCH (22:00)
--- NOTE | 2017-11-22 06:33 | NUR ---
MS RN NOTES PATIENT IN BED RESTING AT THIS TIME, APPEARS COMFORTABLE. AROUSES EASILY. A/O X 1-2 , VERBALLY RESPONSIVE, BUT SPEECH UNCLEAR. SITTER AT BEDSIDE FOR SAFETY . NO DISTRESS, NOR SOB NOTED AT THIS TIME. ON 02 @ 3LPM VIA NC . NO C/O PAIN OR DISCOMFORT AT THIS TIME. IV SITE ON RFA INTACT AND PATENT, NO S/S OF INFILTRATION NOTED. RIGHT SUBCLAVIAN PERMA CATH, INTACT. NO BLEEDING AT THIS TIME. RIGHT FOOT WITH WOUND VAC, DRESSING C/D/I AND DRAINING. NO S/S OF HYPO/ HYPERGLYCEMIA NOTED. KEPT PATIENT COMFORTABLE. SAFETY MEASURES IN PLACE. PATIENT ON AIR MATTRESS. SAFETY, ASPIRATION PRECAUTION OBSERVED. CALL LIGHT WITHIN REACH. WILL ENDORSE TO NEXT SHIFT ACCORDINGLY. .
[2017-11-22] MEDS: ALBUTEROL FS 2.5 MG/0.5 ML VIAL.NEB NEB SCH ×3 (07:41→23:53)
[2017-11-22 07:54] LABS: CALCIUM, SERUM 8.3 mg/dL (8.5-10.1); CARBON DIOXIDE 28 mmol/L (21-32); CHLORIDE 101 mmol/L (98-107); CREATININE 4.2 mg/dL (0.6-1.3); GLUCOSE 116 mg/dL (74-106); MAGNESIUM 2.3 mg/dL (1.8-2.4); PHOSPHORUS 4.5 mg/dL (2.5-4.9); SODIUM SERUM 138 mmol/L (136-145); UREA NITROGEN, BLOOD 40 mg/dL (7-18)
[2017-11-22 08:00] VITALS: BP 106/58
--- NOTE | 2017-11-22 08:00 | NUR ---
MS BANUELOS AM NOTES RECEIVED PATIENT IN BED RESTING. A/OX2-3. SITTER AT BEDSIDE FOR SAFETY. NO ACUTE DISTRESS. BREATHING EVEN AND UNLABORED. NO SOB NOTED. TOLERATED ROOM AIR, O2 SAT 94% WITH O2 AT 3L/MIN VIA N/C.. NO COMPLAINTS OF PAIN OR DISCOMFORT AT THIS TIME. IV ACCESS TO RFA H/L INTACT AND PATENT. WITH ROTH CATH DRAINING DARK YELLOW URINE MINIMAL IN AMOUNT.WITH WOUND VAC ON RIGHT FOOT - DRESSING C/D/I AND DRAINING. KEPT PATIENT COMFORTABLE. ON CONTACT ISOLATION FOR VRE URINE,VRE WOUND AND MRSA BLOOD.SAFETY MEASURES IN PLACE. PATIENT ON AIR MATTRESS. BED IN LOW/LOCKED POSITION,TURNED EVERY TWO HRS. SIDERAILS UP, SEMI-FOWLERS,TURNED EVERY TWO HRS. CALL LIGHT WITHIN REACH. WILL CONTINUE TO MONITOR ACCORDINGLY.
[2017-11-22 08:03] LABS: BASOPHILS % (AUTO) 0.1 % (0.0-2.0); EOSINOPHILS % (AUTO) 0.3 % (0.0-6.0); HEMATOCRIT 26 % (39-51); HEMOGLOBIN 7.8 g/dL (13.5-17.5); LYMPHOCYTES # (AUTO) 0.6 /CMM (0.8-4.8); MEAN CORPUSCULAR HGB CONC 30 g/dl (31.0-36.0); MEAN CORPUSCULAR VOLUME 77 fL (80-96); MONOCYTES # (AUTO) 0.3 /CMM (0.1-1.30); MONOCYTES % (AUTO) 3.4 % (2.0-12.0); NEUTROPHILS # (AUTO) 7.3 /CMM (1.8-8.9); NEUTROPHILS % (AUTO) 89.2 % (43.0-81.0); PLATELET COUNT (AUTO) 290 /CMM (150-450); RDW COEFFICIENT OF VARIATION 24.1 (11.5-15.0); RED BLOOD CELL COUNT(AUTO) 3.37 MIL/uL (4.5-6.0); WHITE BLOOD COUNT (AUTO) 8.2 K/uL (4.3-11.0)
[2017-11-22] MEDS: CLOPIDOGREL BISULFATE 75 MG TABLET PO SCH (10:08)
[2017-11-22] MEDS: DULOXETINE HCL 30 MG CAPSULE.DR PO SCH (10:08)
[2017-11-22] MEDS: ASCORBIC ACID 500 MG TABLET PO SCH (10:08)
[2017-11-22] MEDS: ASPIRIN 81 MG TAB.CHEW PO SCH (10:08)
[2017-11-22] MEDS: LINEZOLID 600 MG TABLET PO SCH ×2 (10:08→21:50)
[2017-11-22] MEDS: DRONEDARONE HYDROCHLORIDE 400 MG TABLET PO SCH ×2 (10:08→18:45)
[2017-11-22] MEDS: SEVELAMER CARBONATE 800 MG TABLET PO SCH ×3 (10:23→18:44)
[2017-11-22] MEDS: MODAFINIL 100 MG TABLET PO SCH (10:24)
[2017-11-22] MEDS: ZINC SULFATE 220 MG CAPSULE PO SCH (10:24)
[2017-11-22] MEDS: POLYETHYLENE GLYCOL 3350 17 GM POWD.PACK PO SCH (10:24)
[2017-11-22] MEDS: prednisoLONE ACET 1% OPHT DROP 5 ML BOTTLE RIGHTEYE SCH ×4 (10:25→21:59)
[2017-11-22] MEDS: BRIMONIDINE TARTRATE OPHT SOLN 5 ML BOTTLE RIGHTEYE SCH ×3 (10:25→18:46)
[2017-11-22] MEDS: NEOMY SULF/BACITRAC ZN/POLY 15 GM TUBE TP SCH (10:25)
[2017-11-22] MEDS: VIT B CMPLX 3/FA/VIT C/BIOTIN 1 TAB TABLET PO SCH (10:29)
[2017-11-22] MEDS: LEVOTHYROXINE SODIUM 100 MCG TABLET PO SCH (10:29)
[2017-11-22] MEDS ORDERED: DAPT500V2 IV (11:37)
[2017-11-22] MEDS ORDERED: AMIK250V13 IJ (11:37)
[2017-11-22 16:00] VITALS: BP 108/61
--- NOTE | 2017-11-22 17:18 | NUR ---
LEFT BRACHIAL MIDLINE GAUGE 18 WAS INSERTED BY VIN MENON WITH DRESSING CLEAN AND DRY.SITE IS PATENT AND INTACT.
[2017-11-22] MEDS: CEFEPIME 2 GM in IV D5W 100 ML IV SCH (18:41)
--- NOTE | 2017-11-22 18:49 | NUR ---
PT ATE 100%BREAKFAST,REFUSED LUNCH AND ATE 20%DINNER.REMAINS CONFUSED AND DENIES ANY PAIN OR DISTRESS.WITH ONGOING MAXIPIME IVPB INFUSING WELL.WITH 1:1 SITTER AT BEDSIDE.TURNED EVERY TWO HRS.CALL LIGHT PLACED WITHIN REACH.
--- NOTE | 2017-11-22 19:20 | NUR ---
MS RN NOTES RECEIVED PATIENT IN BED , WATCHING TV AT THIS TIME. A/O X 1-2 , VERBALLY RESPONSIVE, BUT SPEECH UNCLEAR. SITTER AT BEDSIDE. NO DISTRESS, NOR SOB NOTED AT THIS TIME. 02 SATURATION IS 95 % ON RA, REFUSED TO HAVE THE 02 VIA NC AT THIS TIME, RISK AND BENEFITS EXPLAINED, PT STILL REFUSED. . NO C/O PAIN OR DISCOMFORT AT THIS TIME. IV SITE ON RFA INTACT AND PATENT, NO S/S OF INFILTRATION NOTED. RIGHT SUBCLAVIAN PERMA CATH, INTACT. LEFT BRACHIAL MIDLINE, INTACT AND PATENT, NO S/S OF INFILTRATION NOTED. RIGHT FOOT WITH WOUND VAC, DRESSING C/D/I AND DRAINING. NO S/S OF HYPO/ HYPERGLYCEMIA NOTED. KEPT PATIENT COMFORTABLE. SAFETY MEASURES IN PLACE. BED IN LOW/LOCKED POSITION. ASPIRATION PRECAUTION OBSERVED. CALL LIGHT WITHIN REACH. WILL CONTINUE TO MONITOR CLOSELY.
[2017-11-22 20:00] VITALS: BP 90/46
[2017-11-22] MEDS: TAMSULOSIN 0.4 MG CAP.SR.24H PO SCH (21:50)
[2017-11-22] MEDS: ATORVASTATIN 10 MG TABLET PO SCH (21:50)
[2017-11-22] MEDS: INSULIN GLARGINE, 100 UNIT/ML CARTRIDGE SQ SCH (21:51)
--- NOTE | 2017-11-23 06:55 | NUR ---
MS RN CLOSING NOTES PATIENT IN BED , RESTING AT THIS TIME, . A/O X 1-2 , VERBALLY RESPONSIVE, BUT SPEECH UNCLEAR. SITTER AT BEDSIDE. NO DISTRESS, NOR SOB NOTED AT THIS TIME. NO C/O PAIN OR DISCOMFORT AT THIS TIME. IV SITE ON RFA INTACT AND PATENT, NO S/S OF INFILTRATION NOTED. RIGHT SUBCLAVIAN PERMA CATH, INTACT. LEFT BRACHIAL MIDLINE, INTACT AND PATENT, NO S/S OF INFILTRATION NOTED. RIGHT FOOT WITH WOUND VAC, DRESSING C/D/I AND DRAINING. NO S/S OF HYPO/ HYPERGLYCEMIA NOTED. KEPT PATIENT COMFORTABLE. SAFETY MEASURES IN PLACE. BED IN LOW/LOCKED POSITION. ASPIRATION PRECAUTION OBSERVED. CALL LIGHT WITHIN REACH. MORNING CARE AND WOUND TX DONE. WILL ENDORSE TO NEXT SHIFT FOR CRYSTAL.
--- NOTE | 2017-11-23 07:20 | NUR ---
MS BANUELOS INITIAL NOTES Report received at bedside. Patient received in bed, sleeping comfortably, easily aroused. On continuous oxygen therapy at 2lpm via nasal cannula. Has wound treatment ordered. On wound vac for right foot ulcer. Afebrile. Has a one-on-one sitter. 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 Safety measures in place. Will continue to monitor and assess patient.
[2017-11-23] MEDS: ALBUTEROL FS 2.5 MG/0.5 ML VIAL.NEB NEB SCH ×2 (07:53→15:30)
[2017-11-23] MEDS: DRONEDARONE HYDROCHLORIDE 400 MG TABLET PO SCH (08:17)
[2017-11-23] MEDS: CLOPIDOGREL BISULFATE 75 MG TABLET PO SCH (08:17)
[2017-11-23] MEDS: LEVOTHYROXINE SODIUM 100 MCG TABLET PO SCH (08:17)
[2017-11-23] MEDS: DULOXETINE HCL 30 MG CAPSULE.DR PO SCH (08:17)
[2017-11-23] MEDS: LINEZOLID 600 MG TABLET PO SCH (08:17)
[2017-11-23] MEDS: ZINC SULFATE 220 MG CAPSULE PO SCH (08:17)
[2017-11-23] MEDS: SEVELAMER CARBONATE 800 MG TABLET PO SCH (08:17)
[2017-11-23] MEDS: VIT B CMPLX 3/FA/VIT C/BIOTIN 1 TAB TABLET PO SCH (08:17)
[2017-11-23] MEDS: POLYETHYLENE GLYCOL 3350 17 GM POWD.PACK PO SCH (08:17)
[2017-11-23] MEDS: ASCORBIC ACID 500 MG TABLET PO SCH (08:17)
[2017-11-23] MEDS: ASPIRIN 81 MG TAB.CHEW PO SCH (08:18)
[2017-11-23] MEDS: NEOMY SULF/BACITRAC ZN/POLY 15 GM TUBE TP SCH (08:22)
[2017-11-23] MEDS: prednisoLONE ACET 1% OPHT DROP 5 ML BOTTLE RIGHTEYE SCH (08:23)
[2017-11-23] MEDS: BRIMONIDINE TARTRATE OPHT SOLN 5 ML BOTTLE RIGHTEYE SCH (08:23)
[2017-11-23] MEDS: MODAFINIL 100 MG TABLET PO SCH (08:31)
--- NOTE | 2017-11-23 11:55 | NUR ---
MS NUMERICAL ANALYSIS GROUP MANAGER NOTES Patient is cleared for discharge to [facility] via [facility]. Picked up around 0832. Report given to Smita (Nurse) [phone]
--- NOTE | 2017-11-23 11:55 | NUR ---
MS CUT OFF [place] NOTES Patient cleared for discharge to [facility]. Picked up by [facility] around 1152. Report given to Smita (Nurse) at [facility]. Wound vac removed per Dr. Langford; covered wound with dry dressing. Photos prior to discharge taken. No SOB/labored breathing noted. Not in any type of distress. All belongings are with patient. Kept clean and dry. Afebrile. Remained on contact isolation for VRE wound and urine and MRSA of blood. Discharge instructions provided to patient; unable to comprehend. Discharge papers provided to EMT.
== END 2017-11-23 12:00 | DRG 853 ==
LOC: ER 19:16 → TELE 21:33 → MED 11-14 15:14
PROVIDERS: ADMIT Internal Medicine; ATTEND Internal Medicine
PROC: 0QBL0ZZ Excision of Right Tarsal, Open Approach (ICD-10-PCS; 2017-11-14)
PROC: 0JB90ZZ Excision of Buttock Subcutaneous Tissue and Fascia, Open Approach (ICD-10-PCS; principal; 2017-11-15)
PROC: 5A1D70Z Performance of Urinary Filtration, Intermittent, Less than 6 Hours Per Day (ICD-10-PCS; 2017-11-15)
PROC: 30233N1 Transfusion of Nonautologous Red Blood Cells into Peripheral Vein, Percutaneous Approach (ICD-10-PCS; 2017-11-15)
PROC: 5A1D70Z Performance of Urinary Filtration, Intermittent, Less than 6 Hours Per Day (ICD-10-PCS; 2017-11-17)
PROC: 5A1D70Z Performance of Urinary Filtration, Intermittent, Less than 6 Hours Per Day (ICD-10-PCS; 2017-11-19)
PROC: 5A1D70Z Performance of Urinary Filtration, Intermittent, Less than 6 Hours Per Day (ICD-10-PCS; 2017-11-21)
PROC: 05H633Z Insertion of Infusion Device into Left Subclavian Vein, Percutaneous Approach (ICD-10-PCS; 2017-11-22)
PROC: B547ZZA Ultrasonography of Left Subclavian Vein, Guidance (ICD-10-PCS; 2017-11-22)
DX: A41.9 Sepsis, unspecified organism (principal); L89.323 Pressure ulcer of left buttock, stage 3; L89.313 Pressure ulcer of right buttock, stage 3; E43 Unspecified severe protein-calorie malnutrition; G93.41 Metabolic encephalopathy; N18.6 End stage renal disease; I13.2 Hypertensive heart and chronic kidney disease with heart failure and with stage 5 chronic kidney disease, or end stage renal disease; N39.0 Urinary tract infection, site not specified; M86.8X7 Other osteomyelitis, ankle and foot; E11.22 Type 2 diabetes mellitus with diabetic chronic kidney disease; E11.51 Type 2 diabetes mellitus with diabetic peripheral angiopathy without gangrene; E11.65 Type 2 diabetes mellitus with hyperglycemia; I50.9 Heart failure, unspecified; E11.69 Type 2 diabetes mellitus with other specified complication; D50.9 Iron deficiency anemia, unspecified; E03.9 Hypothyroidism, unspecified; E11.42 Type 2 diabetes mellitus with diabetic polyneuropathy; E78.5 Hyperlipidemia, unspecified; I48.2 Chronic atrial fibrillation; J44.9 Chronic obstructive pulmonary disease, unspecified; K21.9 Gastro-esophageal reflux disease without esophagitis; N40.1 Benign prostatic hyperplasia with lower urinary tract symptoms; Z89.612 Acquired absence of left leg above knee; Z99.2 Dependence on renal dialysis; Z95.0 Presence of cardiac pacemaker; Z95.1 Presence of aortocoronary bypass graft; Z86.73 Personal history of transient ischemic attack (TIA), and cerebral infarction without residual deficits; E88.09 Other disorders of plasma-protein metabolism, not elsewhere classified; E66.01 Morbid (severe) obesity due to excess calories; Z68.35 Body mass index [BMI] 35.0-35.9, adult; B95.2 Enterococcus as the cause of diseases classified elsewhere; Z16.21 Resistance to vancomycin; I87.2 Venous insufficiency (chronic) (peripheral); Z79.4 Long term (current) use of insulin; E11.621 Type 2 diabetes mellitus with foot ulcer; L97.519 Non-pressure chronic ulcer of other part of right foot with unspecified severity; I25.10 Atherosclerotic heart disease of native coronary artery without angina pectoris; B95.62 Methicillin resistant Staphylococcus aureus infection as the cause of diseases classified elsewhere; F17.200 Nicotine dependence, unspecified, uncomplicated; I25.2 Old myocardial infarction; Z91.19 Patient's noncompliance with other medical treatment and regimen; Z95.5 Presence of coronary angioplasty implant and graft
CPT/HCPCS: 36415; 36569; 70450-TC; 71045-TC; 73630-TC; 80048-TC; 80053-TC; 80061-TC; 80076-TC; 80202-TC; 81000-TC; 82272-TC; 82728-TC; 82962-TC; 83540-TC; 83605-TC; 83735-TC; 84100-TC; 84484-TC; 85025-TC; 85610-TC; 85652-TC; 85730-TC; 86140-TC; 86850-TC; 86921-TC; 87040-TC; 87070-TC; 87081-TC; 87086-TC; 87186-TC; 90935-TC; 94760-TC; 94799-TC; A4216; A4606; A6253; A6402; A6403; C1751; J0692; J0885; J1815; J2020; J2185; J2543; J2916; J3370; J3430; J7030; J7040; J7050; J7060; P9016-BL; P9047; Q0169; Z7610

== ENCOUNTER 2017-11-23 16:38 | Inpatient (IN) | payer MEDICARE, BC, MEDICAID ==
[~2017-11-23] VITALS: Ht 177.8 cm; Wt 115.7 kg
[~2017-11-23 16:38] MED LIST changes: +AMIK250V13 IJ; +DAPT500V2 IV; +HYDR-4354 PO; -HYDR-548 PO
--- NOTE | 2017-11-23 16:44 | NUR ---
PT BIBRA FROM SNF TO ER BED 05. PER REPORT, PT WAS NOTED TO BE ALTERED SINCE 15OO AT THE SAME TIME O2 SATURATION WAS AT THE 80'S. PT WAS GIVEN BREATING TREATING AND SAW IMPROVEMENT OF O2 SATURATION. PT STILL NOTED TO BE ALTERED LUNG SPLITTER. AROUSABLE. PLACED ON MONITOR. AWAITING MD HARO.
--- NOTE | 2017-11-23 16:56 | NUR ---
DR OGDEN AT BEDSIDE FOR EVAL.
[2017-11-23 17:26] LABS: BASOPHILS % (AUTO) 0.2 % (0.0-2.0); HEMATOCRIT 22 % (39-51); HEMOGLOBIN 7.7 g/dL (13.5-17.5); LYMPHOCYTES # (AUTO) 0.7 /CMM (0.8-4.8); LYMPHOCYTES % (AUTO) 8.8 % (20.0-44.0); MEAN CORPUSCULAR HGB CONC 35 g/dl (31.0-36.0); MEAN CORPUSCULAR VOLUME 75 fL (80-96); MONOCYTES # (AUTO) 0.3 /CMM (0.1-1.30); MONOCYTES % (AUTO) 3.4 % (2.0-12.0); NEUTROPHILS # (AUTO) 6.6 /CMM (1.8-8.9); NEUTROPHILS % (AUTO) 86.6 % (43.0-81.0); PLATELET COUNT (AUTO) 262 /CMM (150-450); RDW COEFFICIENT OF VARIATION 21.2 (11.5-15.0); RED BLOOD CELL COUNT(AUTO) 2.93 MIL/uL (4.5-6.0); WHITE BLOOD COUNT (AUTO) 7.7 K/uL (4.3-11.0)
[2017-11-23 17:37] LABS: CALCIUM, SERUM 8.6 mg/dL (8.5-10.1); CARBON DIOXIDE 29 mmol/L (21-32); CHLORIDE 101 mmol/L (98-107); GLUCOSE 106 mg/dL (74-106); POTASSIUM 5.3 mmol/L (3.5-5.1); SODIUM SERUM 137 mmol/L (136-145); UREA NITROGEN, BLOOD 54 mg/dL (7-18)
[2017-11-23 17:38] LABS: APPEARANCE,URINE Turbid (CLEAR); BILIRUBIN,URINE Negative (NEGATIVE); BLOOD, URINE Large Ery/uL (NEGATIVE); COLOR,URINE Yellow (YELLOW); KETONES,URINE Trace (NEGATIVE); LEUKOCYTE ESTERASE ,URINE Small (NEGATIVE); NITRITE, URINE Negative (NEGATIVE); PROTEIN,URINE >=300 mg/dl (NEGATIVE); UGLUCOSE Negative (NEGATIVE); UROBILINOGEN,URINE 0.2 EU/dL (0.2)
[2017-11-23 17:41] LABS: INR 1.99 (0.85-1.15)
[2017-11-23 17:43] LABS: ALANINE AMINOTRANSFERASE 9 U/L (12-78); ALBUMIN 2.7 g/dL (3.4-5.0); ALKALINE PHOSPHATASE 123 U/L (46-116); ASPARTATE AMINOTRANSFERASE 8 U/L (15-37); BILIRUBIN,DIRECT 0.1 mg/dL (0.0-0.2); BILIRUBIN,TOTAL 0.4 mg/dL (0.2-1.0); TOTAL PROTEIN, SERUM 7.9 g/dL (6.4-8.2)
[2017-11-23 17:45] LABS: TROPONIN I 0.027 ng/mL (0.00-0.056)
[2017-11-23 17:49] LABS: BACTERIA,URINE Few /HPF (None Seen); SQUAMOUS EPITHELIAL CELL,UR Moderate /HPF (None Seen)
[2017-11-23 17:50] LABS: CALCIUM OXALATE CRYSTALS,UR Few /HPF (None Seen); YEAST,URINE Moderate /HPF (None Seen)
[2017-11-23] MEDS ORDERED: PIPERACILLIN /TAZOBACTAM 3.375 G in IV D5W 50 ML IV ONE (19:00)
[2017-11-23] MEDS ORDERED: VANCOMYCIN 1 GM in IV D5W 250 ML IV ONE (19:00)
--- NOTE | 2017-11-23 19:10 | NUR ---
RECEIVED REPORT FROM RODRICK FOR CRYSTAL
--- NOTE | 2017-11-23 19:19 | NUR ---
REPORT GIVEN TO BENNIE BANUELOS FOR CRYSTAL.
--- NOTE | 2017-11-23 20:14 | NUR ---
PT ASSIGNED TO [facility] 118-1
[2017-11-23] MEDS ORDERED: IV NS 0.9% 1,000 ML IV PRN (20:20)
[2017-11-23] MEDS: IPRATROPIUM NEB FS 0.5 MG/2.5 ML AMPUL.NEB NEB SCH ×2 (20:30→23:50)
[2017-11-23] MEDS ORDERED: ZOLPIDEM TARTRATE 5 MG TABLET PO PRN (20:30)
[2017-11-23] MEDS ORDERED: ACETAMINOPHEN 325 MG TABLET PO PRN (20:30)
[2017-11-23] MEDS ORDERED: GUAIFENESIN 300 MG/15 ML UDC PO PRN (20:30)
[2017-11-23] MEDS ORDERED: MAGNESIUM HYDROXIDE 30 ML UDC PO PRN (20:30)
[2017-11-23] MEDS ORDERED: MAG HYDROX/AL HYDROX/SIMETH 30 ML UDC PO PRN (20:30)
--- NOTE | 2017-11-23 20:39 | NUR ---
GAVE REPORT TO VIRGIL BANUELOS FOR CRYSTAL
[2017-11-23 21:00] VITALS: BP 101/65
[2017-11-23] MEDS: prednisoLONE ACET 1% OPHT DROP 5 ML BOTTLE RIGHTEYE SCH (21:00)
--- NOTE | 2017-11-23 21:00 | NUR ---
ENMANUEL AUDIO VISUAL COORDINATOR NOTES: PT ADMITTED FROM ER VIA [facility] WITH ADMITTING DIAGNOSIS OF ARF AND PNEUMONIA. PT IS AWAKE AND ALERT WITH EPISODES OF CONFUSION. NO ACUTE DISTRESS NOTED. NO FACIAL GRIMACING OR ANY SIGNS OF PAIN NOTED. ON 4LPM NASAL CANNULA, SATURATING WELL. LEFT UPPER ARM MIDLINE INTACT AND PATENT, FLUSHING WELL. ON TELE MONITOR SINUS RHYTHM WITH BBB. PERTINENT ASSESSMENT DONE. PT NOTED TO HAVE MULTIPLE PRESSURE ULCER, PICTURES TAKEN AND PLACED ON CHART. VITAL SIGNS WNL. KEPT CLEAN, DRY AND COMFORTABLE. SAFETY AND FALL PRECAUTIONS OBSERVED AND MAINTAINED. CALL LIGHT PLACED WITHIN REACH. WILL CONTINUE TO MONITOR PT.
--- NOTE | 2017-11-23 21:03 | NUR ---
PT IS STILL IN THE ER. NEXT TX AT 2330
--- NOTE | 2017-11-23 21:09 | NUR ---
TRANSFERRED PT TO 118 PER ACLS PROTOCOL
[2017-11-23] MEDS ORDERED: CEFEPIME 1 GM in IV D5W 50 ML IV ONE (22:30)
--- NOTE | 2017-11-23 22:45 | NUR ---
TD RN NOTES: PREDNISOLONE EYE DROP DUE AT 2100 NOT GIVEN, MED NOT AVAILABLE.
[2017-11-23] MEDS: ATORVASTATIN 10 MG TABLET PO SCH (23:07)
[2017-11-23] MEDS: TAMSULOSIN 0.4 MG CAP.SR.24H PO SCH (23:07)
[2017-11-24] VITALS (44 sets, daily range): BP systolic 82–105; BP diastolic 23–74
[2017-11-24] MEDS ORDERED: CEFEPIME 1 GM VIAL ONE (00:22)
[2017-11-24] MEDS: IPRATROPIUM NEB FS 0.5 MG/2.5 ML AMPUL.NEB NEB SCH ×5 (02:44→19:53)
--- NOTE | 2017-11-24 06:36 | NUR ---
TD RN NOTES: NO CHANGES NOTED THROUGHOUT THE SHIFT. NO APPARENT DISTRESS NOTED. ON 4LPM NASAL CANNULA, SATURATING WELL. ROTH CATH INTACT AND PATENT, DRAINED 225CC URINE OUTPUT. LEFT UPPER MIDLINE INTACT AND PATENT WITH IVF NS RUNNING AT 75ML/HR, INFUSING WELL. CALL LIGHT PLACED WITHIN REACH. KEPT CLEAN, DRY AND COMFORTABLE. SAFETY AND FALL PRECAUTIONS OBSERVED AND MAINTAINED. WILL ENDORSE TO DAY SHIFT NURSE FOR CONTINUITY OF CARE.
--- NOTE | 2017-11-24 07:08 | NUR ---
RN NOTES RECEIVED PT ON BED, A/Ox1, RESPIRATION EVEN AND UNLABORED, ON 4L O2 N/C , NO SOB NOTED, ON TELE HR IN 70'S , SR WITH BBB , ROTH INTACT AND DRANING TO GRAVITY , L UPPER ARM MIDLINE SITE CLEAN, DRY AND INTACT, WITH NS AT 75CC/ HR RUNNING , SR UP x3, CALL LIGHT WITHIN EASY REACH, BED LOCKED AND IN LOWEST POSITION, CONTINUE TO MONITOR .
[2017-11-24 07:34] LABS: HEMATOCRIT 24 % (39-51); HEMOGLOBIN 7.4 g/dL (13.5-17.5); MEAN CORPUSCULAR HGB CONC 31 g/dl (31.0-36.0); MEAN CORPUSCULAR VOLUME 78 fL (80-96); PLATELET COUNT (AUTO) 237 /CMM (150-450); RDW COEFFICIENT OF VARIATION 23.1 (11.5-15.0); RED BLOOD CELL COUNT(AUTO) 3.11 MIL/uL (4.5-6.0); WHITE BLOOD COUNT (AUTO) 6.7 K/uL (4.3-11.0)
[2017-11-24] MEDS: ALBUTEROL FS 2.5 MG/3 ML VIAL.NEB NEB SCH ×4 (07:35→19:53)
[2017-11-24 07:42] LABS: CALCIUM, SERUM 8.3 mg/dL (8.5-10.1); CARBON DIOXIDE 27 mmol/L (21-32); CHLORIDE 100 mmol/L (98-107); CREATININE 5.1 mg/dL (0.6-1.3); GLUCOSE 111 mg/dL (74-106); MAGNESIUM 2.5 mg/dL (1.8-2.4); PHOSPHORUS 5.6 mg/dL (2.5-4.9); POTASSIUM 5.4 mmol/L (3.5-5.1); SODIUM SERUM 136 mmol/L (136-145); UREA NITROGEN, BLOOD 59 mg/dL (7-18)
[2017-11-24] MEDS: ZINC SULFATE 220 MG CAPSULE PO SCH (08:20)
[2017-11-24] MEDS: ASPIRIN 81 MG TAB.CHEW PO SCH (08:20)
[2017-11-24] MEDS: CLOPIDOGREL BISULFATE 75 MG TABLET PO SCH (08:20)
[2017-11-24] MEDS: DRONEDARONE HYDROCHLORIDE 400 MG TABLET PO SCH ×2 (08:20→16:02)
[2017-11-24] MEDS: LEVOTHYROXINE SODIUM 100 MCG TABLET PO SCH (08:20)
[2017-11-24] MEDS: ASCORBIC ACID 500 MG TABLET PO SCH (08:21)
[2017-11-24] MEDS: POLYETHYLENE GLYCOL 3350 17 GM POWD.PACK PO SCH (08:21)
[2017-11-24] MEDS: MODAFINIL 100 MG TABLET PO SCH (08:21)
[2017-11-24] MEDS: DULOXETINE HCL 30 MG CAPSULE.DR PO SCH (08:21)
[2017-11-24] MEDS: SEVELAMER CARBONATE 800 MG TABLET PO SCH ×3 (08:24→16:50)
[2017-11-24] MEDS: prednisoLONE ACET 1% OPHT DROP 5 ML BOTTLE RIGHTEYE SCH ×4 (09:00→21:06)
[2017-11-24 09:03] LABS: LYMPHOCYTES % (MANUAL) 4 % (16-48); MONOCYTES % (MANUAL) 4 % (0-11.0); NEUTROPHILS % (MANUAL) 92 (42-76)
--- NOTE | 2017-11-24 09:40 | NUR ---
RN NOTES DR MERCER AT THE BED , PT IS MORE LETHARGIC , ABG DONE, ORDER RECEIVED TO TRANSFER PT TO ICU.
[2017-11-24 09:43] LABS: ABG BASE EXCESS 0.1 mmol/L; ABG OXYGEN SATURATION 94.2 % (92.0-98.5); ABG PCO2 50.1 mmHg (35.0-45.0); ABG PH 7.336 (7.350-7.450); ABG PO2 79.6 mmHg (75.0-100.0); AaDO2 89.9 mmHg; COHb 0.6 % (0.5-1.5); MetHb 0.8 % (0.0-1.5); O2Hb 92.9 % (94.0-97.0); SITE, ABG Right Brachial; VENT MODE, BG N/C
--- NOTE | 2017-11-24 09:45 | NUR ---
RN NOTES PT TRANSFERRED TO ICU VIA ACLS PROTOCOL , REPORT GIVEN TO MAURICE BANUELOS FOR CONTINUITY OF CARE .
--- NOTE | 2017-11-24 09:46 | NUR ---
MOTOR AND GENERATOR ASSEMBLER NOTES RECEIVED PATIENT TRANSFERRED FROM GO TO ICU DUE TO AMS , PT ON 5LPM NC SPO2 OF 98% , ALTERED , LETHARGIC , AROUSES EASILY , RESPONSIVE TO VERBAL STIMULI , , V PACING 75 ON BEDSIDE MONITOR , FC DRAINING VIA GRAVITY WITH DAVEY COLORED URINE , IV OF SHAVONNE MIDLINE PATENT AND INTACT SL , RIGHT IJ HD CATH C/D/I , ALL NEEDS ATTENDED , WILL CONTINUE TO MONITOR
--- NOTE | 2017-11-24 11:00 | NUR ---
DEHORNER NOTES RT AT BEDSIDE , DR MERCER NOTIFIED REGARDING ABG RESULT , PLACED PT ON BIPAP SETTINGS ORDERED, PER DR MERCER OBTAIN ABG AFTER TOW HOURS , DC IVF AND KEEP PT NPO .
--- NOTE | 2017-11-24 11:06 | NUR ---
RESIDENTIAL INSURANCE INSPECTOR NOTES SEEN AND EVALUATED BY DR SCHWARZ , DISCUSSED THAT PT GOT TRANSFERRED TO ICU DUE TO AMS AND BIPAP , AROUSES EASILY BUT ALTERED , DISCUSSED LABS , PT ON FC , PER MD IF URINE OUTPUT IS BELOW 100ML FOR 2 HOURS DC ROTH CATHETER . PER MD PT WILL BE DIALYZED FOR TODAY AND TOMORROW .
[2017-11-24] MEDS: BRIMONIDINE TARTRATE OPHT SOLN 5 ML BOTTLE RIGHTEYE SCH ×3 (11:26→16:02)
[2017-11-24] MEDS ORDERED: ACETYLCYSTEINE 10% SOLN 400 MG/4 ML VIAL NEB SCH (11:30)
[2017-11-24] MEDS ORDERED: IPRATROPIUM NEB FS 0.5 MG/2.5 ML AMPUL.NEB NEB SCH (11:30)
--- NOTE | 2017-11-24 11:38 | NUR ---
DIRECTOR STARS NOTES SPOKE WITH JOSE RAUL , DISCUSSED LABS , PT IS AFEBRILE , SBP OF 90-100MMHG , NO DIARRHEA NOTED , TRANSFERRED TO ICU DUE TO AMS AND BIPAP , PER TOOL GRINDER OPERATOR EXTERNAL START PT ON ZYVOX 600MG Q 24 , CEFEPIME AND AMIKACIN IV PHARMACY TO DOSE . ORDERS CARRIED OUT
[2017-11-24] MEDS ORDERED: DOSING PER PHARMACY-AMIKACI IV XX PRN (12:00)
--- NOTE | 2017-11-24 12:00 | NUR ---
FAMILY RESOURCE SPECIALIST NOTES HD NURSE BILL AT BEDSIDE FOR HEMODIALYSIS , PT STABLE PRIOR TO HD , ON BIPAP SETTINGS ORDERED WITH SPO2 OF 100% , AFEBRILE , WILL CONTINUE TO MONITOR
[2017-11-24 12:03] LABS: ABG OXYGEN SATURATION 95.3 % (92.0-98.5); ABG PCO2 50.9 mmHg (35.0-45.0); ABG PH 7.364 (7.350-7.450); SITE, ABG Right Brachial
[2017-11-24 12:04] LABS: ABG BASE EXCESS 2.6 mmol/L; AaDO2 137.7 mmHg; COHb 0.6 % (0.5-1.5); MetHb 0.7 % (0.0-1.5); O2Hb 94.1 % (94.0-97.0); VENT MODE, BG bipap 20/5 ps 15
--- NOTE | 2017-11-24 12:11 | NUR ---
NSH TEACHER NOTES NOTIFIED DR MERCER REGARDING ABG RESULTS ON BIPAP SETTINGS ORDERED ,MD AWARE , NO NEW ORDERS RECEIVED
[2017-11-24] MEDS ORDERED: ALBUTEROL HALF STRENGTH 1.25 MG/3 ML VIAL.NEB NEB SCH (13:00)
[2017-11-24] MEDS ORDERED: FEE PK DOSING 1 MIN EA MC ONE (13:02)
[2017-11-24] MEDS ORDERED: ALBUMIN 25% 25 GM in PREMIX 1 EA IV ONE (14:30)
--- NOTE | 2017-11-24 15:10 | NUR ---
WELFARE ADVISER NOTES PT STABLE POST HD ,TOLERATE WELL , 97.8 TEMP VIA AXILLARY , VS STABLE , 3 L OUT , RIGHT IJ HD CATH DRESSING C/D/I , WILL CONTINUE TO MONITOR
[2017-11-24] MEDS: ACETYLCYSTEINE 10% SOLN 400 MG/4 ML VIAL NEB SCH (15:30)
[2017-11-24] MEDS: LINEZOLID RTU BAG 600 MG in PREMIX 1 EA IV SCH ×2 (15:45→21:53)
[2017-11-24] MEDS ORDERED: DEXTROSE 50%-WATER 50 ML DISP.SYRIN IV PRN (16:00)
[2017-11-24] MEDS ORDERED: D5W IV ONE (17:00)
[2017-11-24] MEDS ORDERED: AMIKACIN IV ONE (17:00)
--- NOTE | 2017-11-24 17:17 | NUR ---
FINANCIAL REPORTING ADVISOR NOTES NOTIFIED DR MERCER THAT PT IS STILL ALTERED , RESPONSIVE TO PAIN STIMULI , ON BIPAP SETTINGS ORDERED VERIFIED IF HE WANTS TO ORDER ABG , PER ABG IN AM .
[2017-11-24] MEDS: BLOOD SUGAR DIAGNOSTIC 1 EACH STRIP IN SCH (17:55)
--- NOTE | 2017-11-24 18:00 | NUR ---
BOOT LACE CUTTER MACHINE NOTES FC DISCONTINUED ORDERED NOTED WITH 70ML DAVEY CLOUDY COLORED URINE , WILL CONTINUE TO MONITOR
--- NOTE | 2017-11-24 18:42 | NUR ---
RT END OF THE SHIFT REPORT: POST ABG PT. TRANSFER TO ICU AND PLACED ON BIPAP PER DR. MERCER ORDER. PT. 77 Y OLD MALE WITH NOTED SETTINGS, ALARMS ARE SET AND FUNCTIONAL. EQUAL CHEST RISE NOTED. B/S BILATERALLY RALES TX'S GIVEN INLINE AND NO ADVERSE REACTION NOTED. NO CHANGES POST ABG PER DR. MERCER T/O DAY AND PT. REMAIN STABLE. BIPAP PLUGGED INTO RED OUT LET. AMBU BAG REMAIN AT THE BEDSIDE. REPORT WILL PASS TO PM SHIFT. Addendum: 11/24/17 at 1854 by GUNNAR CUNNINGHAM RT Amended: Links added.
--- NOTE | 2017-11-24 19:55 | NUR ---
pt received on bipap via mask with charted settings. airway patent. pt awake. ambu bag at bedside. alarms set and audible, disconnect alarms checked plugged into red outlet pt receiving breathing tx q6 at this time. pt hob at 30 degrees Addendum: 11/24/17 at 1956 by SKYE RIVERA RT Amended: Links added.
[2017-11-24] MEDS ORDERED: CEFEPIME 0.5 GM in IV D5W 50 ML IV SCH (21:00)
[2017-11-24] MEDS: ATORVASTATIN 10 MG TABLET PO SCH (21:10)
[2017-11-24] MEDS: TAMSULOSIN 0.4 MG CAP.SR.24H PO SCH (21:10)
[2017-11-24] MEDS ORDERED: ACETYLCYSTEINE 10% SOLN 400 MG/4 ML VIAL ONE (23:50)
[2017-11-24] MEDS ORDERED: IPRATROPIUM NEB FS 0.5 MG/2.5 ML AMPUL.NEB ONE (23:50)
[2017-11-25] VITALS (102 sets, daily range): BP systolic 27–154; BP diastolic 15–85
[2017-11-25] MEDS: ACETYLCYSTEINE 10% SOLN 400 MG/4 ML VIAL NEB SCH ×4 (00:15→23:30)
[2017-11-25] MEDS: IPRATROPIUM NEB FS 0.5 MG/2.5 ML AMPUL.NEB NEB SCH ×7 (00:15→23:57)
[2017-11-25] MEDS: BLOOD SUGAR DIAGNOSTIC 1 EACH STRIP IN SCH ×5 (01:02→23:51)
[2017-11-25] MEDS ORDERED: NOREPINEPHRINE 4 MG/4 ML AMPUL IV ONE (02:35)
[2017-11-25] MEDS: NOREPINEPHRINE 16 MG in IV D5W 500 ML IV PRN ×2 (02:41→12:52)
[2017-11-25 02:48] LABS: ABG BASE EXCESS 3.6 mmol/L; ABG OXYGEN SATURATION 98.2 % (92.0-98.5); ABG PCO2 55.6 mmHg (35.0-45.0); ABG PH 7.347 (7.350-7.450); ABG PO2 147.6 mmHg (75.0-100.0); AaDO2 73.7 mmHg; COHb 0.3 % (0.5-1.5); O2Hb 96.9 % (94.0-97.0); SITE, ABG Right Brachial; VENT MODE, BG S/T 12 20/5 40%
--- NOTE | 2017-11-25 02:56 | NUR ---
RN NOTE NOTIFIED DR HAAS OF ABG RESULTS OF PH-7.347, CO2-55.6. O2-147.6, HCO3- 29.8 WITH NO NEW ORDERS. WILL CONTINUE TO MONITOR PT.
[2017-11-25 04:37] LABS: BASOPHILS % (AUTO) 0.5 % (0.0-2.0); EOSINOPHILS % (AUTO) 0.8 % (0.0-6.0); LYMPHOCYTES # (AUTO) 0.7 /CMM (0.8-4.8); LYMPHOCYTES % (AUTO) 10.2 % (20.0-44.0); MEAN CORPUSCULAR HGB CONC 31 g/dl (31.0-36.0); MEAN CORPUSCULAR VOLUME 78 fL (80-96); MONOCYTES # (AUTO) 0.4 /CMM (0.1-1.30); MONOCYTES % (AUTO) 6.2 % (2.0-12.0); NEUTROPHILS # (AUTO) 5.9 /CMM (1.8-8.9); NEUTROPHILS % (AUTO) 82.3 % (43.0-81.0); PLATELET COUNT (AUTO) 176 /CMM (150-450); RDW COEFFICIENT OF VARIATION 23.3 (11.5-15.0); RED BLOOD CELL COUNT(AUTO) 2.92 MIL/uL (4.5-6.0); WHITE BLOOD COUNT (AUTO) 7.2 K/uL (4.3-11.0)
[2017-11-25 04:52] LABS: CALCIUM, SERUM 8.1 mg/dL (8.5-10.1); CARBON DIOXIDE 27 mmol/L (21-32); CHLORIDE 99 mmol/L (98-107); CREATININE 4.2 mg/dL (0.6-1.3); GLUCOSE 80 mg/dL (74-106); MAGNESIUM 2.2 mg/dL (1.8-2.4); PHOSPHORUS 4.5 mg/dL (2.5-4.9); POTASSIUM 4.5 mmol/L (3.5-5.1); SODIUM SERUM 136 mmol/L (136-145); UREA NITROGEN, BLOOD 42 mg/dL (7-18)
[2017-11-25 04:55] LABS: HEMATOCRIT 23 % (39-51); HEMOGLOBIN 6.9 g/dL (13.5-17.5)
[2017-11-25 05:02] LABS: EOSINOPHILS % (MANUAL) 1 % (0-4); LYMPHOCYTES % (MANUAL) 13 % (16-48); MONOCYTES % (MANUAL) 8 % (0-11.0); NEUTROPHILS % (MANUAL) 78 (42-76)
--- NOTE | 2017-11-25 06:12 | NUR ---
RN NOTE NOTIFIED DR. HAAS THAT H/H IS 6.9/. DR. HAAS ORDERED 1 UNIT PRBC TO TRANSFUSE WITH HD IN AM, READBACK ORDERS PERFORMED. WILL NOTIFY AM RN.
--- NOTE | 2017-11-25 07:26 | NUR ---
RECEIVED CARE FROM VIN ANDRE. PATIENT ON BIPAP PER ORDERS AND SATURATING 100%; PENDING UPDATED ABG FOR THIS AM. PATIENT AWAKE AND ALERT TO VOICE NODDING YES AND NO TO QUESTIONS ASKED OF HIM. NODS YES TO UNDERSTANDING HE IS IN THE HOSPITAL. PATIENT NSR WITH BB AND OCCASIONAL V PACING. DIAPERED PER MD ORDER NO ROTH CATH. SCHEDULED FOR ANOTHER HD TODAY AND PENDING BLOOD TRANSFUSION S/T HBG 6.9. PATIENT NOTED WITH MULTIPLE WOUNDS AND PENDING WOUND CONSULT. 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 NOTED WITH LEFT BKA. SHAVONNE MIDLINE IN PLACE C/D/I/P. LEVO RUNNING AT 1MCG/MIN AND WILL MONITOR. R IJ HD CATH IN PLACE AND C/D/I. PATIENT NODDING NO TO PAIN OR SOB AT THIS TIME. PATIENT ON KCI MATTRESS S/T MULTIPLE WOUNDS AND BEDBOUND. SAFETY, SKIN, ASPIRATION PRECAUTIONS IN PLACE AND WILL MONITOR.
[2017-11-25] MEDS: LEVOTHYROXINE SODIUM 100 MCG TABLET PO SCH (07:30)
[2017-11-25] MEDS: SEVELAMER CARBONATE 800 MG TABLET PO SCH ×3 (08:00→16:44)
[2017-11-25] MEDS: LINEZOLID RTU BAG 600 MG in PREMIX 1 EA IV SCH ×2 (08:14→21:35)
[2017-11-25] MEDS: BRIMONIDINE TARTRATE OPHT SOLN 5 ML BOTTLE RIGHTEYE SCH ×3 (08:15→16:06)
[2017-11-25] MEDS: prednisoLONE ACET 1% OPHT DROP 5 ML BOTTLE RIGHTEYE SCH ×4 (08:15→21:36)
[2017-11-25] MEDS: Z GUARD REMEDY 2 OZ OINT TP PRN ×2 (08:15→12:54)
--- NOTE | 2017-11-25 08:34 | NUR ---
holding patient po medications as he is on bipap at this time.
[2017-11-25] MEDS: ALBUTEROL FS 2.5 MG/3 ML VIAL.NEB NEB SCH ×4 (08:52→19:52)
[2017-11-25] MEDS: ASCORBIC ACID 500 MG TABLET PO SCH (09:00)
[2017-11-25] MEDS: MODAFINIL 100 MG TABLET PO SCH (09:00)
[2017-11-25] MEDS: CLOPIDOGREL BISULFATE 75 MG TABLET PO SCH (09:00)
[2017-11-25] MEDS: DULOXETINE HCL 30 MG CAPSULE.DR PO SCH (09:00)
[2017-11-25] MEDS: ZINC SULFATE 220 MG CAPSULE PO SCH (09:00)
[2017-11-25] MEDS: POLYETHYLENE GLYCOL 3350 17 GM POWD.PACK PO SCH (09:00)
[2017-11-25] MEDS: DRONEDARONE HYDROCHLORIDE 400 MG TABLET PO SCH ×2 (09:00→16:04)
[2017-11-25] MEDS: ASPIRIN 81 MG TAB.CHEW PO SCH (09:00)
--- NOTE | 2017-11-25 09:15 | NUR ---
HD RN BILL AT BEDSIDE. UNABLE TO GET CONSENT YET FOR UNIT OF PRBC.
--- NOTE | 2017-11-25 10:22 | NUR ---
UPDATED ON PATIENT CARE PLAN. PER DR MERCER ONCE PATIENT COMPLETES HD PLEASE OBTAIN ABG WHILE STILL ON BIPAP. PATIENT MORE ALERT TODAY BUT STILL LETHARGIC. 1UNIT PRBC STARTED WITH HD PER MD ORDER. PATIENT VS STAYING STABLE WHILE ON HD NO TITRATION ON LEVO; PATIENT CONTINUES ON 2MCG/MIN
--- NOTE | 2017-11-25 10:50 | NUR ---
DR SCHWARZ AT BEDSIDE. PER GIVE EPOGEN S/P HD
--- NOTE | 2017-11-25 10:59 | NUR ---
DR GALLARDO AT BEDSIDE. MD UPDATED ON PATIENT CONDITION. MORE LETHARGIC DURING HD. OPENING EYES TO KEEP TOUCH. MD AWARE PATIENT UNABLE TO TAKE PO MEDICATIONS AND BLOOD THINNERS AT THIS TIME S/T MENTATION. PATIENT TOLERATING HD.
[2017-11-25] MEDS ORDERED: EPOETIN ALFA (10,000 UNIT) 10,000 UNIT/ML VIAL SQ ONE (11:00)
--- NOTE | 2017-11-25 11:40 | NUR ---
1 UNIT PRBC COMPLETED. VSS. NO S/S TRANSFUSION REACTION. AT THIS TIME NO S/S BLEEDING. WILL MONITOR.
--- NOTE | 2017-11-25 12:15 | NUR ---
HD COMPLETED. VSS. PATIENT IS ALERT AND AWAKE AT THIS TIME. FOLLOWING COMMANDS.
--- NOTE | 2017-11-25 13:19 | NUR ---
2800ML OUT ON HD. PATIENT BIPAP REMOVED. PLACED ON NASAL CANNULA 5LPM AND SATURATING 98-100%. ORAL CARE COMPLETED. LIPS DRY AND CRACKED CAUSED SLIGHT BLEEDING. NO ACTIVE BLEEDING AT THIS TIME. WILL MONITOR
[2017-11-25 14:30] LABS: ABG BASE EXCESS 6.3 mmol/L; ABG OXYGEN SATURATION 96.6 % (92.0-98.5); ABG PCO2 55.1 mmHg (35.0-45.0); ABG PH 7.385 (7.350-7.450); ABG PO2 96.6 mmHg (75.0-100.0); AaDO2 125.2 mmHg; COHb 0.3 % (0.5-1.5); MetHb 0.9 % (0.0-1.5); O2Hb 95.4 % (94.0-97.0); SITE, ABG Left Radial; VENT MODE, BG 5L N/C
--- NOTE | 2017-11-25 14:34 | NUR ---
ABG TAKEN WHILE PATIENT ON 5LPM NASAL CANNULA. RESULTS GIVEN TO DR MERCER. PER MD CONTINUE WITH NASAL CANNULA AND OK FOR BIPAP NOCTURNAL. PATIENT 4LPM NASAL CANNULA SATURATING 97% AND ABOVE. NO SOB, DIFFICULTY BREATHING. FAMILY AT BEDSIDE. PATIENT ALERT AND AWAKE SPEAKING CLEARLY AND UNDERSTANDING OF EDUCATION
[2017-11-25] MEDS ORDERED: LORAZEPAM INJ 2 MG/ML VIAL IV PRN (16:00)
--- NOTE | 2017-11-25 16:01 | NUR ---
NOTIFIED DR GALLARDO PATIENT UNCONTROLLABLE SHAKINESS OF HEAD AND HANDS NEW ONSET. PER MD STAT HEAD CT WO, ATIVAN IVP 1MG Q6H PRN, AND CONSULT NEUROLOGY PATIENT LIPS AND MOUTH SEVERELY DRY AND CRACKING WITH SLIGHT BLEEDING NOTED. FREQUENT ORAL CARE BEING COMPLETED.
--- NOTE | 2017-11-25 16:15 | NUR ---
MESSAGE LEFT TO DR WILDER OFFICE TO NOTIFY OF CONSULT PER DR GALLARDO. PATIENT CONTINUES TO SCRATCH HEAD AND PLACE HANDS BEHIND HEAD. PATIENT SCRATCHED LEFT SIDE OF FOREHEAD. NO BLEEDING NOTED. WILL MONITOR. FAMILY AT BEDSIDE STATING PATIENT FELL WHILE THEY WERE GONE. ASKING WHY FAMILY THINKS THIS..EXPLAINED PATIENT HAS NOT FALLEN WHILE IN MY CARE. THEY CONTINUE TO SAY HE DIDN'T HAVE A "GASH ON HIS HEAD" WHEN THEY WERE HERE EARLIER. EXPLAINED THE ABOVE THAT PATIENT WAS SCRATCHING HEAD AND PATIENT HAS NOT FALLEN.
--- NOTE | 2017-11-25 16:57 | NUR ---
FAMILY AT BEDSIDE INTERRUPTING MY CARE OF PATIENT. CONTINUES TO SAY PATIENT FELL. INTERRUPTING ME TALKING TO PATIENT. EXPLAINED THAT PATIENT CONTINUES TO BITE AT LIP PERIODICALLY BECAUSE IT WAS DRY FROM BIPAP AND WE ARE CONTINUING TO COMPLETE ORAL CARE AND APPLY LUBRICANT TO LIPS WHICH LOOK MUCH BETTER FROM THIS AM. PATIENT IS MORE ALERT TODAY THAN ON ADMISSION, OPENING EYES ON HIS OWN
--- NOTE | 2017-11-25 17:00 | NUR ---
PATIENT TAKEN TO CT ACCOMPANIED BY MYSELF. VSS. NO COMPLICATIONS NOTED
--- NOTE | 2017-11-25 17:50 | NUR ---
ACCOMPANIED PATIENT TO CT. STABLE VS. NO COMPLICATIONS NOTED.
--- NOTE | 2017-11-25 18:55 | NUR ---
ALL DUE MEDS GIVEN AND ALL NEEDS MET. ORAL CARE COMPLETED AGAIN. EDUCATED PATIENT ON NOT BITING LIP. APPLIED LUBRICANT AGAIN TO LIPS. PATIENT CONTINUES ON LEVOPHED TITRATING PER PROTOCOL. WOUND AND SKIN CARE DAILY/PRN SOILING. PATIENT CONTINUES TO TOLERATE LOW FLOW NASAL CANNULA WELL. NO SOB, DIFFICULTY BREATHING AND ABLE TO CLEAR SECRETIONS. UNABLE TO TAKE ANY PO LIQUIDS/MEDICATIONS HE IS TOO LETHARGIC STILL. AFEBRILE TODAY. PATIENT SHAKINESS LESSENED BUT IS RESTLESS WANTING TO GET OUT OF BED. LEFT BRACHIAL C/D/I/P.
[2017-11-25] MEDS: FLUCONAZOLE IN NS 100 MG in PREMIX 1 EA IV SCH ×2 (19:26)
--- NOTE | 2017-11-25 20:00 | NUR ---
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 ATTEMPTED TO REORIENT PT HOWEVER PT REMAINS CONFUSED. APPLIED BLSW RESTRAINS FOR PATIENT SAFETY. CONTINUE TO MONITOR.
[2017-11-25] MEDS: TAMSULOSIN 0.4 MG CAP.SR.24H PO SCH (21:35)
[2017-11-25] MEDS: ATORVASTATIN 10 MG TABLET PO SCH (21:35)
[2017-11-25] MEDS: AMIKACIN 500 MG in IV D5W 100 ML IV PRN (23:49)
[2017-11-26] VITALS (105 sets, daily range): BP systolic 75–146; BP diastolic 39–85
--- NOTE | 2017-11-26 00:10 | NUR ---
PLACED ON BIPAP. RN NOTIFIED.
--- NOTE | 2017-11-26 02:00 | NUR ---
PRE BILLING CLINICIAN REMOVED RESTRAINTS HOWEVER PT BEGINS TO PULL AT TUBES. UNABLE TO REORIENT PT; REAPPLIED RESTRAINTS.
[2017-11-26] MEDS: IPRATROPIUM NEB FS 0.5 MG/2.5 ML AMPUL.NEB NEB SCH ×6 (03:11→23:22)
[2017-11-26 04:35] LABS: BASOPHILS # (AUTO) 0.1 /CMM (0.0-0.2); BASOPHILS % (AUTO) 0.8 % (0.0-2.0); EOSINOPHILS % (AUTO) 0.8 % (0.0-6.0); HEMATOCRIT 22 % (39-51); LYMPHOCYTES # (AUTO) 0.9 /CMM (0.8-4.8); LYMPHOCYTES % (AUTO) 12.6 % (20.0-44.0); MEAN CORPUSCULAR HGB CONC 31 g/dl (31.0-36.0); MEAN CORPUSCULAR VOLUME 78 fL (80-96); MONOCYTES # (AUTO) 0.6 /CMM (0.1-1.30); MONOCYTES % (AUTO) 8.6 % (2.0-12.0); NEUTROPHILS # (AUTO) 5.8 /CMM (1.8-8.9); NEUTROPHILS % (AUTO) 77.2 % (43.0-81.0); PLATELET COUNT (AUTO) 167 /CMM (150-450); RDW COEFFICIENT OF VARIATION 23.5 (11.5-15.0); RED BLOOD CELL COUNT(AUTO) 2.86 MIL/uL (4.5-6.0); WHITE BLOOD COUNT (AUTO) 7.5 K/uL (4.3-11.0)
[2017-11-26 04:48] LABS: HEMOGLOBIN 6.9 g/dL (13.5-17.5)
[2017-11-26 05:18] LABS: LYMPHOCYTES % (MANUAL) 14 % (16-48); MONOCYTES % (MANUAL) 6 % (0-11.0); NEUTROPHILS % (MANUAL) 80 (42-76)
--- NOTE | 2017-11-26 05:19 | NUR ---
PT TAKEN OFF BIPAP AND PLACED ON 4L NC. RN NOTIFIED.
[2017-11-26 05:59] LABS: CALCIUM, SERUM 8.3 mg/dL (8.5-10.1); CARBON DIOXIDE 30 mmol/L (21-32); CHLORIDE 99 mmol/L (98-107); CREATININE 3.8 mg/dL (0.6-1.3); GLUCOSE 97 mg/dL (74-106); MAGNESIUM 2.1 mg/dL (1.8-2.4); PHOSPHORUS 4.5 mg/dL (2.5-4.9); POTASSIUM 3.9 mmol/L (3.5-5.1); SODIUM SERUM 137 mmol/L (136-145); UREA NITROGEN, BLOOD 36 mg/dL (7-18)
[2017-11-26] MEDS: BLOOD SUGAR DIAGNOSTIC 1 EACH STRIP IN SCH ×3 (06:10→17:34)
--- NOTE | 2017-11-26 06:19 | NUR ---
INVENTORY PLANNER NOTIFIED DR HAAS OF H/H 6.11/10 WITH ORDERS TO REPEAT DRAW PERIPHERALLY AND CALL HER BACK WITH RESULTS.
--- NOTE | 2017-11-26 06:20 | NUR ---
STITCHING MACHINE OPERATOR PT REMAINED RESTLESS AND WITH MOMENTS OF AGGRESSION ALL THROUGHOUT. PT ALERT TO NAME HOWEVER KEPT REPEATING HE NEEDED TO GO TO WORK AND RESISTANT TO CARE. CONTINUE TO MONITOR.
[2017-11-26 06:25] LABS: HEMOGLOBIN 7.5 g/dL (13.5-17.5)
--- NOTE | 2017-11-26 07:58 | NUR ---
INITIAL BATTERY CONTAINER TESTER NOTE RCVD PT AWAKE, ABLE TO FOLLOW SIMPLE COMMANDS. RE-ORIENTED TO PLACE, TIME AND SITUATION. ON BILATERAL SOFT WRIST RESTRAINTS. CIRCULATION CHECKS DONE. PT ABLE TO UNDERSTAND DIRECTIONS BUT QUICKLY FORGETS AND REQUIRES CONSTANT REMINDERS. SR ON MONITOR WITH OCCASIONAL V-PACING. TOLERATINGN O2 VIA NC. O2 SENSOR REPLACED. SHAVONNE MIDLINE IN PLACE. C/D/I/PATENT. INFUSING LEVO ORDERED. PT NPO AT THIS TIME PENDING SWALLOW EVAL. WILL CONTINUE TO MONITOR PT FOR SAFETY AND COMFORT. BED IN LOW AND LOCKED POSITION. CALL LIGHT WITHIN REACH.
[2017-11-26] MEDS: SEVELAMER CARBONATE 800 MG TABLET PO SCH ×3 (08:00→17:13)
[2017-11-26] MEDS: ALBUTEROL FS 2.5 MG/3 ML VIAL.NEB NEB SCH ×4 (08:05→19:43)
[2017-11-26] MEDS: ACETYLCYSTEINE 10% SOLN 400 MG/4 ML VIAL NEB SCH ×3 (08:05→23:22)
[2017-11-26] MEDS: DULOXETINE HCL 30 MG CAPSULE.DR PO SCH (09:11)
[2017-11-26] MEDS: ZINC SULFATE 220 MG CAPSULE PO SCH (09:12)
[2017-11-26] MEDS: MODAFINIL 100 MG TABLET PO SCH (09:12)
[2017-11-26] MEDS: CLOPIDOGREL BISULFATE 75 MG TABLET PO SCH (09:12)
[2017-11-26] MEDS: ASCORBIC ACID 500 MG TABLET PO SCH (09:12)
[2017-11-26] MEDS: POLYETHYLENE GLYCOL 3350 17 GM POWD.PACK PO SCH (09:12)
[2017-11-26] MEDS: LINEZOLID RTU BAG 600 MG in PREMIX 1 EA IV SCH ×2 (09:12→21:02)
[2017-11-26] MEDS: DRONEDARONE HYDROCHLORIDE 400 MG TABLET PO SCH ×2 (09:12→17:13)
[2017-11-26] MEDS: LEVOTHYROXINE SODIUM 100 MCG TABLET PO SCH (09:12)
[2017-11-26] MEDS: ASPIRIN 81 MG TAB.CHEW PO SCH (09:12)
[2017-11-26] MEDS: BRIMONIDINE TARTRATE OPHT SOLN 5 ML BOTTLE RIGHTEYE SCH ×3 (09:13→17:15)
[2017-11-26] MEDS: DAKINS QUARTER STRENGTH (0.125%) 480 ML BOTTLE TOP SCH (09:13)
[2017-11-26] MEDS: prednisoLONE ACET 1% OPHT DROP 5 ML BOTTLE RIGHTEYE SCH ×4 (09:14→21:02)
--- NOTE | 2017-11-26 09:32 | NUR ---
BATTER MIXER NOTE PT'S SISTER AND NEPHEW AT BEDSIDE REQUESTED TO REMOVE RESTRAINTS WHILE THEY'RE IN ROOM. THIS WAS DONE AND PT AND FAMILY WERE INSTRUCTED TO MONITOR PT TO PREVENT REMOVING O2 SENSOR, O2, IV ACCESS, CHEST LEADS. RN WILL CONTINUE TO MONITOR.
[2017-11-26 09:48] LABS: ABG BASE EXCESS 2.9 mmol/L; ABG OXYGEN SATURATION 92.9 % (92.0-98.5); ABG PH 7.362 (7.350-7.450); ABG PO2 70.1 mmHg (75.0-100.0); AaDO2 68.2 mmHg; COHb 0.4 % (0.5-1.5); MetHb 0.6 % (0.0-1.5); SITE, ABG Right Brachial; VENT MODE, BG NASAL CANNULA
[2017-11-26] MEDS: ALBUMIN 25% 25 GM in PREMIX 1 EA IV PRN (10:39)
[2017-11-26] MEDS: INSULIN REGULAR, HUMAN 100 UNIT/ML 3 ML VIAL SQ PRN ×2 (12:43→17:36)
[2017-11-26] MEDS ORDERED: SILVER NITRATE APPLICATOR 1 EA BOX TP SCH (13:30)
[2017-11-26] MEDS ORDERED: LIDOCAINE 2%-EPI 1:100,000 30 ML VIAL TP ONE (13:30)
--- NOTE | 2017-11-26 14:11 | NUR ---
ARMED CUSTOM PROTECTION OFFICER NOTE PER DR. GALLARDO OK TO USE MIDLINE TO INFUSE LEVOPHED. PICC LINE RN CAME TO ASSESS PT FOR POSSIBLE LINE PLACEMENT AND STATED THAT DR. SAENZ RECOMMENDED TO REFRAIN FROM PLACING PICC ON UPPER EXTREMITIES BECAUSE PT WILL EVENTUALLY NEED A PERMANENT DIALYSIS ACCESS. DR. SCHWARZ IN UNIT RECONFIRM THIS INFORMATION AND RECOMMENDED A CENTRAL LINE IN EITHER GROIN AREA. PER DR. GALLARDO PT TO RECEIVE LEVO INFUSION VIA MIDLINE AT THIS TIME.
--- NOTE | 2017-11-26 15:07 | NUR ---
RT PT RECEIVED ON NASAL CANNULA AT 4 LPM O2. NO SIGNS OF RESP DISTRESS/SOB NOTED. O2 VIA NASAL CANNULA TITRATE TO 2 LPM. ORDERED TXS GIVEN. AMBUBAG AT BEDSIDE. WILL CONT. TO MONITOR.
--- NOTE | 2017-11-26 17:01 | NUR ---
CAN LINE EXAMINER NOTE PT'S , TIERA CALLED TWICE AND TWO MESSAGES LEFT IN HER VM REQUESTING A CALL BACK REGARDING CONSENT FOR WOUND DEBRIDEMENT.
[2017-11-26] MEDS: FLUCONAZOLE IN NS 100 MG in PREMIX 1 EA IV SCH ×2 (17:13)
--- NOTE | 2017-11-26 18:40 | NUR ---
ENVIRONMENTAL CONSTRUCTION ENGINEER NOTE PT AWAKE AND APPEARS MORE AWAKE THAN THIS MORNING, CONTINUES TO FOLLOW SIMPLE COMMANDS, SR ON MONITOR. TOLERATING O2 VIA NC TITRATED TO 2L. WOUND CARE DONE. RIGHT FOOT OBSERVED WITH BLOODY DRESSING THIS WAS CHANGED AND APPEARS BLOODY AGAIN. DR. MCGILL WAS CALLED NO CALL BACK. PRESSURE DRESSING IN PLACE APPEARS TO HAVE CONTROLLED BLEEDING. RESTRAINTS REMAINED DISCONTINUED THROUGHOUT THE SHIFT. PT FOLLOWING DIRECTIONS BETTER. LEVO REMAINS INFUSING TITRATED ORDERED. PT TOLERATED DIALYSIS TODAY, ALBUMIN AND LEVO TITRATED UP. PT'S CARE WILL BE ENDORSED TO KEG RAISER RN FOR CONTINUITY OF CARE. BED IN LOW AND LOCKED POSITION. CALL LIGHT WITHIN REACH.
--- NOTE | 2017-11-26 19:30 | NUR ---
Received report from AM shift patient awake alert and oriented x 2.Follows simple commands.Respiration even and unlabored.With O2 2L NC well tolerated.SR with BBB and occasional V-paced per monitor.Continued on Levophed gtt infusing at 8 mcg via SHAVONNE MIDLINE and will titrate accordingly.With multiple skin issues dressing dry and intact.Anuric.Right chest HD CATH intact.Denies pain or any discomfort.Turned and repositioned. Contact Isolation for VRE wound observed.Safety precaution implemented with call light within easy reach.
[2017-11-26] MEDS: ATORVASTATIN 10 MG TABLET PO SCH (21:27)
[2017-11-26] MEDS: TAMSULOSIN 0.4 MG CAP.SR.24H PO SCH (21:27)
[2017-11-26] MEDS: AMIKACIN 500 MG in IV D5W 100 ML IV PRN (23:03)
--- NOTE | 2017-11-26 23:47 | NUR ---
PLACED ON NOC BIPAP. RN NOTIFIED. WILL CONTINUE TO MONITOR.
[2017-11-27] VITALS (112 sets, daily range): BP systolic 78–121; BP diastolic 37–83
[2017-11-27] MEDS: BLOOD SUGAR DIAGNOSTIC 1 EACH STRIP IN SCH ×4 (00:02→17:38)
[2017-11-27] MEDS: INSULIN REGULAR, HUMAN 100 UNIT/ML 3 ML VIAL SQ PRN ×2 (00:04→12:41)
[2017-11-27] MEDS: NOREPINEPHRINE 16 MG in IV D5W 500 ML IV PRN ×2 (00:41→21:33)
[2017-11-27] MEDS ORDERED: IV NS 0.9% 250 ML IV ONE (01:40)
--- NOTE | 2017-11-27 02:00 | NUR ---
Patient incontinent of stools.Perineal care, wound care and bed bath rendered.Complete linens changed.Turned and repositioned.
[2017-11-27] MEDS: IPRATROPIUM NEB FS 0.5 MG/2.5 ML AMPUL.NEB NEB SCH ×6 (03:07→23:13)
[2017-11-27 05:13] LABS: HEMATOCRIT 22 % (39-51); MEAN CORPUSCULAR HGB CONC 31 g/dl (31.0-36.0); MEAN CORPUSCULAR VOLUME 79 fL (80-96); PLATELET COUNT (AUTO) 124 /CMM (150-450); RDW COEFFICIENT OF VARIATION 23.5 (11.5-15.0); RED BLOOD CELL COUNT(AUTO) 2.76 MIL/uL (4.5-6.0); WHITE BLOOD COUNT (AUTO) 7.7 K/uL (4.3-11.0)
[2017-11-27 05:18] LABS: CALCIUM, SERUM 8.4 mg/dL (8.5-10.1); CARBON DIOXIDE 29 mmol/L (21-32); CHLORIDE 98 mmol/L (98-107); CREATININE 4.1 mg/dL (0.6-1.3); GLUCOSE 121 mg/dL (74-106); MAGNESIUM 2.2 mg/dL (1.8-2.4); PHOSPHORUS 4.1 mg/dL (2.5-4.9); POTASSIUM 4.2 mmol/L (3.5-5.1); SODIUM SERUM 134 mmol/L (136-145); UREA NITROGEN, BLOOD 45 mg/dL (7-18)
[2017-11-27 05:25] LABS: HEMOGLOBIN 6.7 g/dL (13.5-17.5)
--- NOTE | 2017-11-27 05:28 | NUR ---
TAKEN OFF BIPAP AND PLACED ON 2L NC. RN NOTIFIED.
--- NOTE | 2017-11-27 05:28 | NUR ---
Patient off Bipap and place on O2 2L NC by Garrison MUJICA.Tolerating well SPO2 99%.
[2017-11-27 05:38] LABS: EOSINOPHILS % (MANUAL) 2 % (0-4); LYMPHOCYTES % (MANUAL) 13 % (16-48); MONOCYTES % (MANUAL) 5 % (0-11.0); NEUTROPHILS % (MANUAL) 80 (42-76)
--- NOTE | 2017-11-27 06:32 | NUR ---
WOUND CARE CONSULT WOUND CARE RECEIVED CONSULT FOR RIGHT FOOT/SACRUM/RIGHT POSTERIOR THIGH WOUNDS. WOUND CARE WILL DEFER CONSULT AND ALL TREATMENT PLANS TO SURGICAL TEAM WHO ARE CURRENTLY FOLLOWING. ALL PRESSURE ULCER PREVENTION MEASURES ARE NOTED TO BE IN PLACE. PATIENT WITH CURRENT DELMIS AT 11. WILL SEE PRN.
--- NOTE | 2017-11-27 07:12 | NUR ---
Patient resting in no acute distress.VS stable.Levophed gtt infusing at 5 mcg.H/H 6.09/09. notified awaiting for orders.Report given to AM shift for continuity of care.
--- NOTE | 2017-11-27 07:55 | NUR ---
INITIAL ALLIANCES CONSULTANT NOTE RCVD PT AWAKE, ALERT TO HIMSELF, ABLE TO FOLLOW SIMPLE COMMANDS. SR WITH OCCASIONAL V-PACING. TOLERATING O2 VIA NC. PER REPORT USED BIPAP OVER NIGHT FOR A FEW HOURS. NO S/O DISTRESS/PAIN OBSERVED AT THIS TIME. PT CHOSE TO WAIT FOR BREAKFAST. TRAY PLACED AT BEDSIDE. WILL CONTINUE TO MONITOR PT FOR SAFETY AND COMFORT. BED IN LOW AND LOCKED POSITION. CALL LIGHT WITHIN REACH.
[2017-11-27] MEDS: MODAFINIL 100 MG TABLET PO SCH (08:08)
[2017-11-27] MEDS: ZINC SULFATE 220 MG CAPSULE PO SCH (08:08)
[2017-11-27] MEDS: LEVOTHYROXINE SODIUM 100 MCG TABLET PO SCH (08:08)
[2017-11-27] MEDS: SEVELAMER CARBONATE 800 MG TABLET PO SCH ×3 (08:08→17:17)
[2017-11-27] MEDS: ASCORBIC ACID 500 MG TABLET PO SCH (08:08)
[2017-11-27] MEDS: POLYETHYLENE GLYCOL 3350 17 GM POWD.PACK PO SCH (08:08)
[2017-11-27] MEDS: DRONEDARONE HYDROCHLORIDE 400 MG TABLET PO SCH ×2 (08:08→17:17)
[2017-11-27] MEDS: ASPIRIN 81 MG TAB.CHEW PO SCH (08:08)
[2017-11-27] MEDS: CLOPIDOGREL BISULFATE 75 MG TABLET PO SCH (08:08)
[2017-11-27] MEDS: DULOXETINE HCL 30 MG CAPSULE.DR PO SCH (08:08)
[2017-11-27] MEDS: LINEZOLID RTU BAG 600 MG in PREMIX 1 EA IV SCH ×2 (08:09→21:33)
[2017-11-27] MEDS: BRIMONIDINE TARTRATE OPHT SOLN 5 ML BOTTLE RIGHTEYE SCH ×3 (08:10→17:38)
[2017-11-27] MEDS: prednisoLONE ACET 1% OPHT DROP 5 ML BOTTLE RIGHTEYE SCH ×4 (08:10→21:42)
[2017-11-27] MEDS: DAKINS QUARTER STRENGTH (0.125%) 480 ML BOTTLE TOP SCH (08:10)
[2017-11-27] MEDS: ALBUTEROL FS 2.5 MG/3 ML VIAL.NEB NEB SCH ×4 (08:26→19:51)
[2017-11-27] MEDS: ACETYLCYSTEINE 10% SOLN 400 MG/4 ML VIAL NEB SCH ×3 (08:26→23:13)
[2017-11-27 08:51] LABS: ABG BASE EXCESS -1.3 mmol/L; ABG OXYGEN SATURATION 88.2 % (92.0-98.5); ABG PCO2 35.4 mmHg (35.0-45.0); ABG PH 7.427 (7.350-7.450); ABG PO2 56.4 mmHg (75.0-100.0); AaDO2 50.9 mmHg; COHb 1.7 % (0.5-1.5); MetHb 0.7 % (0.0-1.5); O2Hb 86.1 % (94.0-97.0); SITE, ABG Left Radial; VENT MODE, BG ROOM AIR
--- NOTE | 2017-11-27 10:30 | NUR ---
CASTING OPERATOR HELPER NOTE PT'S , TIERA CALLED BACK REGARDING CONSENT AUTHORIZATION FOR WOUND DEBRIDEMENT AND PERMACATH REMOVAL BOTH AT BEDSIDE. TIERA WAS INFORMED THAT PT WILL NEED ONE UNIT OF PRBCs DUE TO HGB BEING LOW TODAY. TIERA AUTHORIZED BOTH PROCEDURES CONSENTS SIGNED AND PLACED IN CHART.
[2017-11-27 10:34] LABS: HEMOGLOBIN 6.9 g/dL (13.5-17.5)
[2017-11-27] MEDS ORDERED: LIDOCAINE HCL/PF 1% 30 ML SDV IJ ONE (11:00)
--- NOTE | 2017-11-27 15:08 | NUR ---
SPECIAL EVENTS DIRECTOR NOTE PT FINISHED DIALYSIS, TOLERATED WELL. PRBC GIVEN WITH DIALYSIS TODAY. NO REACTION OBSERVED. DR. NORMAN CALLED LETTING HIM KNOW THAT PT WILL BE DONE WITH DIALYSIS AT 1530 AND ABLE TO COME AFTER 1600 TO REMOVE DIALYSIS CATH PER ID's RECOMMENDATION.
[2017-11-27] MEDS: FLUCONAZOLE IN NS 100 MG in PREMIX 1 EA IV SCH ×2 (17:17)
[2017-11-27] MEDS ORDERED: NEPRO VAN 237 ML CAN PO PRN (17:30)
[2017-11-27] MEDS ORDERED: HEPARIN SODIUM, PORCINE 5000 UNITS/1 ML VIAL IV ONE (18:30)
--- NOTE | 2017-11-27 19:00 | NUR ---
BURNISHING MACHINE OPERATOR NOTE PT REMAINS ALERT TO SELF, DROWSY, SR ON MONITOR WITH OCCASIONAL A-V PACED BEATS. TOLERATING O2 VIA NC. POOR APPETITE. DR. NORMAN CAME TO DISCONTINUE DIALYSIS CATH AND PLACE TEMPORAL DIALYSIS CATH. PT TOLERATED PROCEDURE WELL. VITALS REMAINED STABLE. PT'S CARE ENDORSED TO PROJECT SURVEYOR RN FOR CONTINUITY OF CARE. BED IN LOW AND LOCKED POSITION. CALL LIGHT WITHIN REACH.
--- NOTE | 2017-11-27 19:30 | NUR ---
TELEVISION WRITER INITIAL SHIFT NOTES RECEIVED PATIENT IN BED, ASLEEP AT THIS TIME, AROUSABLE TO NAME/LIGHT TOUCH. PATIENT IS A/O X1, LETHARGIC. BREATHING EVEN AND NONLABORED WHILE ON O2 VIA NC @ 4LPM, TOLERATING WELL, FREE FROM ANY S/S OF ACUTE RESPIRATORY DISTRESS. ON TELEMETRY MONITORING, SHOWING SINUS RHYTHM WITH OCCASIONAL A-PACING AND V-PACING. PATIENT ON LEVOPHED DRIP, CURRENTLY RUNNING @ 7MCG, WILL MONITOR AND TITRATE ACCORDINGLY. SHAVONNE MIDLINE PATENT AND INTACT, SITE FREE FROM ANY S/S OF INFILTRATION OR PHLEBITIS. CALL LIGHT WITHIN EASY REACH, BED IN LOWEST AND LOCKED POSITION, SEMIFOWLERS. ISOLATION PRECAUTIONS OBSERVED. WILL CONTINUE TO CLOSELY MONITOR
[2017-11-27] MEDS: TAMSULOSIN 0.4 MG CAP.SR.24H PO SCH (21:33)
[2017-11-27] MEDS: ATORVASTATIN 10 MG TABLET PO SCH (21:33)
--- NOTE | 2017-11-27 23:30 | NUR ---
SCHOOL BASED THERAPIST NOTES PATIENT PLACED ON BIPAP BY RT. WILL CONTINUE TO CLOSELY MONITOR
[2017-11-28] VITALS (95 sets, daily range): BP systolic 62–148; BP diastolic 23–94
[2017-11-28] MEDS: INSULIN REGULAR, HUMAN 100 UNIT/ML 3 ML VIAL SQ PRN ×4 (00:30→17:42)
[2017-11-28] MEDS: IPRATROPIUM NEB FS 0.5 MG/2.5 ML AMPUL.NEB NEB SCH ×6 (03:27→23:57)
[2017-11-28 04:27] LABS: BASOPHILS % (AUTO) 0.1 % (0.0-2.0); EOSINOPHILS % (AUTO) 0.9 % (0.0-6.0); HEMATOCRIT 23 % (39-51); HEMOGLOBIN 7.1 g/dL (13.5-17.5); LYMPHOCYTES # (AUTO) 1.3 /CMM (0.8-4.8); LYMPHOCYTES % (AUTO) 14.7 % (20.0-44.0); MEAN CORPUSCULAR HGB CONC 31 g/dl (31.0-36.0); MEAN CORPUSCULAR VOLUME 81 fL (80-96); MONOCYTES # (AUTO) 0.6 /CMM (0.1-1.30); MONOCYTES % (AUTO) 7.5 % (2.0-12.0); NEUTROPHILS # (AUTO) 6.6 /CMM (1.8-8.9); NEUTROPHILS % (AUTO) 76.8 % (43.0-81.0); PLATELET COUNT (AUTO) 107 /CMM (150-450); RDW COEFFICIENT OF VARIATION 24.8 (11.5-15.0); RED BLOOD CELL COUNT(AUTO) 2.83 MIL/uL (4.5-6.0); WHITE BLOOD COUNT (AUTO) 8.6 K/uL (4.3-11.0)
[2017-11-28 04:56] LABS: CALCIUM, SERUM 8.4 mg/dL (8.5-10.1); CARBON DIOXIDE 28 mmol/L (21-32); CHLORIDE 97 mmol/L (98-107); CREATININE 4.4 mg/dL (0.6-1.3); GLUCOSE 143 mg/dL (74-106); POTASSIUM 4.5 mmol/L (3.5-5.1); SODIUM SERUM 134 mmol/L (136-145); UREA NITROGEN, BLOOD 49 mg/dL (7-18)
--- NOTE | 2017-11-28 05:19 | NUR ---
PT OFF BIPAP. RN NOTIFIED.
[2017-11-28] MEDS: BLOOD SUGAR DIAGNOSTIC 1 EACH STRIP IN SCH ×4 (06:28→17:42)
--- NOTE | 2017-11-28 07:10 | NUR ---
RN INITIAL NOTES RECEIVED PT LETHARGIC, ON 02 AT 3LPM VIA NC. NO RESPIRATORY DISTRESS NOTED. NO SOB NOTED. NO SIGNS OF PAIN NOTED. SHAVONNE MIDLINE AND RIJ HD CATH IN PLACE. DRESSING CLEAN AND DRY. PT REPOSITIONED. PT COMFORTABLE. CALL LIGHT WITHIN REACH. WILL MONITOR.
[2017-11-28] MEDS: ACETYLCYSTEINE 10% SOLN 400 MG/4 ML VIAL NEB SCH ×3 (07:46→23:57)
[2017-11-28] MEDS: ALBUTEROL FS 2.5 MG/3 ML VIAL.NEB NEB SCH ×4 (07:46→20:23)
[2017-11-28] MEDS: LEVOTHYROXINE SODIUM 100 MCG TABLET PO SCH (08:31)
[2017-11-28] MEDS: SEVELAMER CARBONATE 800 MG TABLET PO SCH ×3 (08:31→17:48)
[2017-11-28] MEDS: DRONEDARONE HYDROCHLORIDE 400 MG TABLET PO SCH ×2 (08:31→17:47)
[2017-11-28] MEDS: DULOXETINE HCL 30 MG CAPSULE.DR PO SCH (08:31)
[2017-11-28] MEDS: LINEZOLID RTU BAG 600 MG in PREMIX 1 EA IV SCH (08:31)
[2017-11-28] MEDS: ASPIRIN 81 MG TAB.CHEW PO SCH (08:31)
[2017-11-28] MEDS: POLYETHYLENE GLYCOL 3350 17 GM POWD.PACK PO SCH (08:31)
[2017-11-28] MEDS: ZINC SULFATE 220 MG CAPSULE PO SCH (08:31)
[2017-11-28] MEDS: ASCORBIC ACID 500 MG TABLET PO SCH (08:31)
[2017-11-28] MEDS: CLOPIDOGREL BISULFATE 75 MG TABLET PO SCH (08:31)
[2017-11-28] MEDS: MODAFINIL 100 MG TABLET PO SCH (08:31)
[2017-11-28] MEDS: NEPRO VAN 237 ML CAN PO SCH ×3 (08:32→17:48)
[2017-11-28] MEDS: DAKINS QUARTER STRENGTH (0.125%) 480 ML BOTTLE TOP SCH (08:40)
[2017-11-28] MEDS: BRIMONIDINE TARTRATE OPHT SOLN 5 ML BOTTLE RIGHTEYE SCH ×3 (08:40→17:46)
[2017-11-28] MEDS: prednisoLONE ACET 1% OPHT DROP 5 ML BOTTLE RIGHTEYE SCH ×4 (08:40→21:23)
--- NOTE | 2017-11-28 09:00 | NUR ---
RN NOTES SEEN AND EXAMINED BY DR MERCER. PT OFF BIPAP. ON AT 3LPM VIA NC. NO RESPIRATORY DISTRESS NOTED. NO SOB NOTED. KEPT HOB ELEVATED. MD AWARE OF LATEST LAB VALUES. WILL MONITOR
[2017-11-28] MEDS: FLUCONAZOLE (100 MG) 100 MG TABLET PO SCH (17:47)
[2017-11-28] MEDS: NOREPINEPHRINE 16 MG in IV D5W 500 ML IV PRN (17:59)
--- NOTE | 2017-11-28 18:47 | NUR ---
RN CLOSING NOTES NO SIGNIFICANT CHANGE NOTED. NO SOB NOTED. DENIES ANY PAIN. TX PROVIDED ORDERED. KEPT COMFORTABLE. ALL NEEDS ATTENDED AND MET. CALL LIGHT WITHIN REACH. WILL ENDORSE FOR CONTINUITY OF CARE
--- NOTE | 2017-11-28 19:45 | NUR ---
ICU/TRUST ADMINISTRATIVE ASSISTANT RECEIVED REPORT FROM DAY NURSE. PATIENT ALERT X 2 WITH NO ACUTE RESP DISTRESS NOTED. PT IS TOLERATING CURRENT O2 N/C, WITH SATURATION AT 90'S %. PT IS NSR WITH BBB AND PACING AT TIMES. IV ON LEFT UPPER MIDLINE PICC LINE.PT REQUIRES ASSIST WITH FEEDING. PT IS ANURIC.PT HAS A FEW SKIN ISSUES THAT ARE ADDRESSED ON FLOWSHEET. PT WAS TURNED AND REPOSITIONED FOR COMFORT AND CARE, WILL CONTINUE TO MONITOR THIS.
--- NOTE | 2017-11-28 20:23 | NUR ---
PLACED PT ON NOC BIPAP. RN ERICKSON NOTIFIED. BREATHING TX GIVEN ORDERED. NO ADVERSE REACTION NOTED. NO RESPIRATORY DISTRESS NOTED AT THIS TIME. WILL CONTINUE TO MONITOR.
[2017-11-28] MEDS: ATORVASTATIN 10 MG TABLET PO SCH (21:22)
[2017-11-28] MEDS: LINEZOLID 600 MG TABLET PO SCH (21:22)
[2017-11-28] MEDS: TAMSULOSIN 0.4 MG CAP.SR.24H PO SCH (21:22)
--- NOTE | 2017-11-28 23:45 | NUR ---
ICU/DENTAL LABORATORY MANAGER PT'S BLOOD SUGAR IS 106, WHICH THERE IS NO COVERAGE FOR THIS PER SLIDING SCALE. WILL CONTINUE TO MONITOR THIS PT'S BS ORDERED BY MD. PT WAS TURNED AND REPOSITIONED FOR COMFORT AND CARE.
[2017-11-29] VITALS (100 sets, daily range): BP systolic 46–121; BP diastolic 32–81
[2017-11-29] MEDS: BLOOD SUGAR DIAGNOSTIC 1 EACH STRIP IN SCH ×5 (00:01→23:59)
--- NOTE | 2017-11-29 02:10 | NUR ---
ICU/EDITOR PRODUCER PT WAS GIVEN AM CARE ALONG WITH ORAL CARE. PT TOLERATED THIS WELL. PT REMAINS ON CURRENT BIPAP SETTINGS WITH SATURATION AT 98%. PT WAS THEN TURNED AND REPOSITIONED FOR COMFORT AND CARE. WILL CONTINUE TO MONITOR THIS PT. NO ACUTE DISTRESS SEEN.
[2017-11-29] MEDS: IPRATROPIUM NEB FS 0.5 MG/2.5 ML AMPUL.NEB NEB SCH ×6 (03:24→23:27)
[2017-11-29 04:28] LABS: BASOPHILS % (AUTO) 0.2 % (0.0-2.0); EOSINOPHILS % (AUTO) 1.4 % (0.0-6.0); HEMATOCRIT 21 % (39-51); LYMPHOCYTES # (AUTO) 1.3 /CMM (0.8-4.8); LYMPHOCYTES % (AUTO) 17.4 % (20.0-44.0); MEAN CORPUSCULAR HGB CONC 32 g/dl (31.0-36.0); MEAN CORPUSCULAR VOLUME 81 fL (80-96); MONOCYTES # (AUTO) 0.6 /CMM (0.1-1.30); MONOCYTES % (AUTO) 7.5 % (2.0-12.0); NEUTROPHILS # (AUTO) 5.5 /CMM (1.8-8.9); NEUTROPHILS % (AUTO) 73.5 % (43.0-81.0); PLATELET COUNT (AUTO) 86 /CMM (150-450); RDW COEFFICIENT OF VARIATION 25.4 (11.5-15.0); RED BLOOD CELL COUNT(AUTO) 2.59 MIL/uL (4.5-6.0); WHITE BLOOD COUNT (AUTO) 7.6 K/uL (4.3-11.0)
[2017-11-29 04:41] LABS: HEMOGLOBIN 6.6 g/dL (13.5-17.5)
[2017-11-29 04:54] LABS: CALCIUM, SERUM 8.6 mg/dL (8.5-10.1); CARBON DIOXIDE 27 mmol/L (21-32); CHLORIDE 96 mmol/L (98-107); CREATININE 5.4 mg/dL (0.6-1.3); GLUCOSE 146 mg/dL (74-106); POTASSIUM 4.8 mmol/L (3.5-5.1); SODIUM SERUM 133 mmol/L (136-145); UREA NITROGEN, BLOOD 76 mg/dL (7-18)
[2017-11-29 05:21] LABS: LYMPHOCYTES % (MANUAL) 12 % (16-48); NEUTROPHILS % (MANUAL) 83 (42-76)
[2017-11-29 05:22] LABS: MONOCYTES % (MANUAL) 5 % (0-11.0)
--- NOTE | 2017-11-29 06:10 | NUR ---
ICU/DESK CLERKS SUPERVISOR AM LABS WERE DONE ALONG WITH CHEST X-RAY, AWAIT ANY ABNORMAL RESULTS.
--- NOTE | 2017-11-29 06:39 | NUR ---
ICU/SOFTWARE CLERK AM BLOOD SUGAR IS 130, THERE IS NO COVERAGE FOR THIS PER MD ORDERS. PT WAS TURNED AND REPOSITIONED FOR COMFORT AND CARE.
[2017-11-29 06:40] LABS: HEMOGLOBIN 6.8 g/dL (13.5-17.5)
--- NOTE | 2017-11-29 07:02 | NUR ---
ICU/SALES BROKER H/H CAME BACK AT .04/12 CALLED THE MD NURSERY SCHOOL ATTENDANT FOR ORDERS, AND GAVE ORDERS FOR 1 UNIT PRBC'S.
--- NOTE | 2017-11-29 07:30 | NUR ---
RN NOTES RECEIVED REPORT ON BED, A/Ox2, ON 3L O2 N/C , NO SOB NOTED , ON TELE NSR WITH BBB AND PACING AT TIMES. LEFT UPPER ARM MIDLINE SITE , CLEAN ,DRY AND INTACT, ANURIC. WOUND VAC PALCED ON THE R HEEL BY , LEVO AT 9 MCG/MIN RUNNING , SR UP x3, CALL LIGHT WITHIN EASY REACH, BED LOCKED AND IN LOWEST POSITION, CONTINUE TO MONITOR .
[2017-11-29] MEDS: ALBUTEROL FS 2.5 MG/3 ML VIAL.NEB NEB SCH ×4 (07:58→19:25)
[2017-11-29] MEDS: ACETYLCYSTEINE 10% SOLN 400 MG/4 ML VIAL NEB SCH ×3 (07:58→23:27)
[2017-11-29] MEDS: ASPIRIN 81 MG TAB.CHEW PO SCH (08:21)
[2017-11-29] MEDS: ZINC SULFATE 220 MG CAPSULE PO SCH (08:21)
[2017-11-29] MEDS: POLYETHYLENE GLYCOL 3350 17 GM POWD.PACK PO SCH (08:21)
[2017-11-29] MEDS: LINEZOLID 600 MG TABLET PO SCH ×2 (08:21→21:39)
[2017-11-29] MEDS: DRONEDARONE HYDROCHLORIDE 400 MG TABLET PO SCH ×2 (08:21→17:03)
[2017-11-29] MEDS: SEVELAMER CARBONATE 800 MG TABLET PO SCH ×3 (08:21→17:04)
[2017-11-29] MEDS: CLOPIDOGREL BISULFATE 75 MG TABLET PO SCH (08:21)
[2017-11-29] MEDS: LEVOTHYROXINE SODIUM 100 MCG TABLET PO SCH (08:22)
[2017-11-29] MEDS: ASCORBIC ACID 500 MG TABLET PO SCH (08:22)
[2017-11-29] MEDS: MODAFINIL 100 MG TABLET PO SCH (08:22)
[2017-11-29] MEDS: DULOXETINE HCL 30 MG CAPSULE.DR PO SCH (08:22)
[2017-11-29] MEDS: NEPRO VAN 237 ML CAN PO SCH ×3 (08:22→17:13)
[2017-11-29] MEDS: BRIMONIDINE TARTRATE OPHT SOLN 5 ML BOTTLE RIGHTEYE SCH ×3 (08:23→17:02)
[2017-11-29] MEDS: prednisoLONE ACET 1% OPHT DROP 5 ML BOTTLE RIGHTEYE SCH ×4 (08:23→21:39)
[2017-11-29] MEDS: DAKINS QUARTER STRENGTH (0.125%) 480 ML BOTTLE TOP SCH (08:24)
--- NOTE | 2017-11-29 09:24 | NUR ---
PT PLACED OFF BIPAP POST INLINE TX. ZERO RESP. DISTRESS NOTED AT THIS TIME PT ON 3LPM. Addendum: 11/29/17 at 0926 by ROSALES SHAW RT Amended: Links added.
[2017-11-29] MEDS ORDERED: LIDOCAINE 1%-EPI 1:100,000 20 ML VIAL TP ONE (12:00)
--- NOTE | 2017-11-29 12:02 | NUR ---
RN NOTES PT IS RECEIVING HD AT THIS TIME, ONE UNIT OF PRBC STARTED VIA HD , VSS STABLE , CONTINUE TO MONITOR .
[2017-11-29] MEDS: INSULIN REGULAR, HUMAN 100 UNIT/ML 3 ML VIAL SQ PRN ×2 (13:41→17:09)
[2017-11-29] MEDS: FLUCONAZOLE (100 MG) 100 MG TABLET PO SCH (17:03)
--- NOTE | 2017-11-29 18:00 | NUR ---
RN NOTES PT RECEIVED ONE UNIT OF PRBC ON THIS SHIFT, TOLERATED WELL, VSS STABLE, REFUSED TO EAT DINNER AT THIS TIME, LEVO AT 10MCG/ MIN RUNNING VIA L UPPER ARM MIDLINE, SITE , CLEAN, DRY AND INTACT, BED LOCKED AND IN LOWEST POSITION, WILL ENDOSE TO REHABILITATION ATTENDANT NURSE FOR CONTINUITY OF CARE .
[2017-11-29] MEDS: NOREPINEPHRINE 16 MG in IV D5W 500 ML IV PRN (18:44)
--- NOTE | 2017-11-29 19:32 | NUR ---
pt PLACED on bipap via mask with charted settings. airway patent. pt awake. no signs of respiratory distress noted. ambu bag at bedside. alarms set and audible, disconnect alarms checked plugged into red outlet Addendum: 11/29/17 at 1933 by JOSEPH SHETH RT Amended: Links added.
--- NOTE | 2017-11-29 19:45 | NUR ---
SCHOOL CURRICULUM DEVELOPER INITIAL NOTE PT RECEIVED ASLEEP BUT EASILY AROUSABLE TO NAME IN BED. RT PLACED ON BIPAP AND SATURATING WELL. A/O X1 WITH EPISODES OF CONFUSION. BREATHING REGULAR AND UNLABORED. NO ACUTE DISTRESS NOTED AT THIS TIME. TELE- AFIB W PVC AND 80% PACING. IV SHAVONNE MIDLINE CLEAN AND PATENT WITH LEVO INFUSING. ISOLATION PRECAUTIONS OBSERVED. CALL LIGHT WITHIN REACH. HOB ELEVATED. WOUND VAC IN PLACE. WILL CONTINUE TO MONITOR.
[2017-11-29] MEDS: ATORVASTATIN 10 MG TABLET PO SCH (21:39)
[2017-11-29] MEDS: TAMSULOSIN 0.4 MG CAP.SR.24H PO SCH (21:39)
[2017-11-30] VITALS (98 sets, daily range): BP systolic 73–131; BP diastolic 39–93
--- NOTE | 2017-11-30 01:20 | NUR ---
RT NOTE PATIENT REFUSING TO KEEP BIPAP ON. EXPLAINED PURPOSE AND BENEFITS TO THE PATIENT BUT STILL REFUSING. PATIENT PLACED ON 3LPM. SPO2 100%. NO SIGNS OF RESPIRATORY DISTRESS AT THIS TIME. AMBU BAG AT PATIENT BEDSIDE. WILL CONTINUE TO MONITOR PATIENT.
--- NOTE | 2017-11-30 01:30 | NUR ---
ACRYLIC FABRICATOR NOTE PT REFUSING TO HAVE BIPAP ON. INFORMED PT THE NEED FOR NOCTURNAL BIPAP X'S 3 TIMES AND PT STILL REFUSED. PLACED ON 3LPM OF O2 VIA NC AND SATURATING WELL. WILL MONITOR.
[2017-11-30] MEDS: IPRATROPIUM NEB FS 0.5 MG/2.5 ML AMPUL.NEB NEB SCH ×6 (04:18→23:24)
[2017-11-30 04:47] LABS: HEMATOCRIT 21 % (39-51); MEAN CORPUSCULAR HGB CONC 31 g/dl (31.0-36.0); MEAN CORPUSCULAR VOLUME 82 fL (80-96); PLATELET COUNT (AUTO) 78 /CMM (150-450); RDW COEFFICIENT OF VARIATION 24.9 (11.5-15.0); RED BLOOD CELL COUNT(AUTO) 2.56 MIL/uL (4.5-6.0); WHITE BLOOD COUNT (AUTO) 9.7 K/uL (4.3-11.0)
[2017-11-30 05:03] LABS: CALCIUM, SERUM 8.6 mg/dL (8.5-10.1); CARBON DIOXIDE 26 mmol/L (21-32); CHLORIDE 97 mmol/L (98-107); CREATININE 5.1 mg/dL (0.6-1.3); GLUCOSE 141 mg/dL (74-106); MAGNESIUM 2.3 mg/dL (1.8-2.4); PHOSPHORUS 4.3 mg/dL (2.5-4.9); POTASSIUM 5.3 mmol/L (3.5-5.1); SODIUM SERUM 133 mmol/L (136-145)
[2017-11-30 05:06] LABS: UREA NITROGEN, BLOOD 80 mg/dL (7-18)
[2017-11-30 05:10] LABS: HEMOGLOBIN 6.6 g/dL (13.5-17.5)
[2017-11-30] MEDS: BLOOD SUGAR DIAGNOSTIC 1 EACH STRIP IN SCH ×3 (05:30→17:38)
[2017-11-30] MEDS: INSULIN REGULAR, HUMAN 100 UNIT/ML 3 ML VIAL SQ PRN ×3 (05:41→17:45)
[2017-11-30 05:51] LABS: NEUTROPHILS % (MANUAL) 78 (42-76)
[2017-11-30 05:52] LABS: LYMPHOCYTES % (MANUAL) 21 % (16-48); MONOCYTES % (MANUAL) 1 % (0-11.0)
[2017-11-30] MEDS: ACETYLCYSTEINE 10% SOLN 400 MG/4 ML VIAL NEB SCH ×3 (07:44→23:24)
[2017-11-30] MEDS: ALBUTEROL FS 2.5 MG/3 ML VIAL.NEB NEB SCH ×4 (07:44→20:00)
--- NOTE | 2017-11-30 07:45 | NUR ---
FITNESS AND WELLNESS INSTRUCTOR NOTE RECEIVED CRITICAL LAB VALUE FOR H/H 6.08/09. INFORMED SOFTWARE SUPPORT REPRESENTATIVE DR. GALLARDO WITH ORDERS TO TRANSFUSE 1 UNIT OF PRBC. PT REMAINED STABLE DURING SHIFT. NO ACUTE DISTRESS NOTED. ENDORSED TO NEXT SHIFT FOR CONTINUITY OF CARE.
[2017-11-30] MEDS: LINEZOLID 600 MG TABLET PO SCH ×2 (08:18→21:04)
[2017-11-30] MEDS: LEVOTHYROXINE SODIUM 100 MCG TABLET PO SCH (08:18)
[2017-11-30] MEDS: BRIMONIDINE TARTRATE OPHT SOLN 5 ML BOTTLE RIGHTEYE SCH ×3 (08:19→17:17)
[2017-11-30] MEDS: prednisoLONE ACET 1% OPHT DROP 5 ML BOTTLE RIGHTEYE SCH ×4 (08:19→21:05)
[2017-11-30] MEDS: SEVELAMER CARBONATE 800 MG TABLET PO SCH ×3 (08:20→17:38)
[2017-11-30] MEDS: ZINC SULFATE 220 MG CAPSULE PO SCH (08:20)
[2017-11-30] MEDS: DULOXETINE HCL 30 MG CAPSULE.DR PO SCH (08:20)
[2017-11-30] MEDS: ASCORBIC ACID 500 MG TABLET PO SCH (08:20)
[2017-11-30] MEDS: MODAFINIL 100 MG TABLET PO SCH (08:21)
[2017-11-30] MEDS: DRONEDARONE HYDROCHLORIDE 400 MG TABLET PO SCH ×2 (08:22→17:17)
[2017-11-30] MEDS: POLYETHYLENE GLYCOL 3350 17 GM POWD.PACK PO SCH (08:23)
[2017-11-30] MEDS: NEPRO VAN 237 ML CAN PO SCH ×3 (08:23→17:20)
[2017-11-30] MEDS: DAKINS QUARTER STRENGTH (0.125%) 480 ML BOTTLE TOP SCH (08:24)
--- NOTE | 2017-11-30 10:00 | NUR ---
RN NOTE SPOKE WITH QUYNH BRADLEY, AWARE ABOUT HGB LEVEL PENDING TRANSFUSION WITH HD TODAY, AND OKAY TO GIVE ASPIRIN AND PLAVIX. NO ACTIVE BLEEDING NOTED. PER [place] HD NURSE, PT WILL HAVE HD LATER TODAY.
[2017-11-30] MEDS: HYDROCODONE/APAP 5/325MG 1 EACH TABLET PO PRN ×2 (10:14→17:16)
[2017-11-30] MEDS: ASPIRIN 81 MG TAB.CHEW PO SCH (10:14)
[2017-11-30] MEDS: CLOPIDOGREL BISULFATE 75 MG TABLET PO SCH (10:14)
[2017-11-30] MEDS: ALBUMIN 25% 25 GM in PREMIX 1 EA IV PRN (16:52)
[2017-11-30] MEDS: FLUCONAZOLE (100 MG) 100 MG TABLET PO SCH (17:38)
[2017-11-30] MEDS: NOREPINEPHRINE 16 MG in IV D5W 500 ML IV PRN (18:43)
--- NOTE | 2017-11-30 19:00 | NUR ---
RN NOTE PT REMAINED STABLE DURING HD, LEVOPHED RUNNING CONTINUOUSLY PER PROTOCOL, 1 UNIT PRBCs TRANSFUSED WITH HD, TOLERATED WELL. NEEDS MET AND MED GIVEN PRESCRIBED. WILL ENDORSE TO NECKTIES PAINTER NURSE.
--- NOTE | 2017-11-30 19:30 | NUR ---
CLINICAL DOCUMENTATION CLERK INITIAL NOTE RECEIVED PATIENT AWAKE, ABLE TO FOLLOW SIMPLE COMMANDS. DENIES PAIN OR DISCOMFORT. DENIES SOB. SKIN WARM AND DRY TO TOUCH. DIALYSIS NURSE AT BEDSIDE. PATIENT S/P HD WITH NO COMPLICATIONS NOTED AT THIS TIME. RESPIRATIONS EVEN UNLABORED ON 3LPMO2 VIA NC, SPO2 100%. ON TELE MONITOR SR WITH FIRST DEGREE AND BBB. WITH SHAVONNE MIDLINE PATENT AND INTACT, TKO AND LEVO AT 12MCG/MIN RUNNING. ISOLATION PRECAUTIONS OBSERVED. HOB ELEVATED. SIDE RAILS UP AND LOCKED. BED KEPT AT LOWEST POSITION. CALL LIGHT KEPT WITHIN EASY REACH. WILL CONTINUE TO MONITOR.
--- NOTE | 2017-11-30 20:00 | NUR ---
PLODDING MACHINE OPERATOR NOTE RT AT BEDSIDE, PATIENT PLACED ON BIPAP. WILL CONTINUE TO MONITOR.
--- NOTE | 2017-11-30 20:07 | NUR ---
ROBOTIC WELD TECHNICIAN NOTE SPOKE WITH LAB TO F/U AMIKACIN TROUGH LEVEL, NO RESULT IS READY, THEY WILL F/U WITH LAB DAVID
--- NOTE | 2017-11-30 20:30 | NUR ---
LAWYER CRIMINAL NOTE RECEIVED CALL BACK FROM LAB WITH AMIKACIN RESULT 9.0. SPOKE WITH PHARMACY, RELAYED AMIKACIN TROUGH OF 9.0. PER PHARMACY OK TO GIVE AMIKACIN DOSE.
[2017-11-30] MEDS: AMIKACIN 500 MG in IV D5W 100 ML IV PRN (20:50)
[2017-11-30] MEDS: ATORVASTATIN 10 MG TABLET PO SCH (21:03)
[2017-11-30] MEDS: TAMSULOSIN 0.4 MG CAP.SR.24H PO SCH (21:03)
--- NOTE | 2017-11-30 23:49 | NUR ---
PATIENT PLACED ON BIBAP WITH NOTED SETTINGS . PATIENT AWAKE AND ALERT.HHN TREATMENT GIVEN , TOLERATED WELL. AMBUBAG AT BEDSIDE. ALARMS ARE ON AND AUDIBLE. WILL CONTINUE TO MONITOR. Addendum: 11/30/17 at 2355 by DENIS OGDEN RT Amended: Links added.
[2017-12-01] VITALS (105 sets, daily range): BP systolic 46–131; BP diastolic 23–72
[2017-12-01] MEDS: BLOOD SUGAR DIAGNOSTIC 1 EACH STRIP IN SCH ×4 (00:20→18:04)
[2017-12-01] MEDS: INSULIN REGULAR, HUMAN 100 UNIT/ML 3 ML VIAL SQ PRN ×4 (00:21→18:01)
--- NOTE | 2017-12-01 02:30 | NUR ---
ENDOSCOPIC TECHNICIAN NOTE PATIENT REFUSED BIPAPX3, PLACED BACK ON 3LPMO2 VIA NC, NO RESPIRATORY DISTRESS NOTED. WILL CONTINUE TO MONITOR.
[2017-12-01] MEDS: IPRATROPIUM NEB FS 0.5 MG/2.5 ML AMPUL.NEB NEB SCH ×6 (03:27→23:12)
[2017-12-01 05:10] LABS: CALCIUM, SERUM 8.8 mg/dL (8.5-10.1); CARBON DIOXIDE 30 mmol/L (21-32); CHLORIDE 101 mmol/L (98-107); CREATININE 4.3 mg/dL (0.6-1.3); GLUCOSE 150 mg/dL (74-106); SODIUM SERUM 140 mmol/L (136-145); UREA NITROGEN, BLOOD 63 mg/dL (7-18)
[2017-12-01 06:23] LABS: BASOPHILS # (AUTO) 0.1 /CMM (0.0-0.2); HEMATOCRIT 21 % (39-51); LYMPHOCYTES # (AUTO) 0.8 /CMM (0.8-4.8); MEAN CORPUSCULAR HGB CONC 32 g/dl (31.0-36.0); MEAN CORPUSCULAR VOLUME 81 fL (80-96); MONOCYTES # (AUTO) 0.7 /CMM (0.1-1.30); NEUTROPHILS # (AUTO) 5.3 /CMM (1.8-8.9); PLATELET COUNT (AUTO) 71 /CMM (150-450); RDW COEFFICIENT OF VARIATION 23.4 (11.5-15.0); RED BLOOD CELL COUNT(AUTO) 2.59 MIL/uL (4.5-6.0)
[2017-12-01 06:33] LABS: BASOPHILS % (AUTO) 1.3 % (0.0-2.0); EOSINOPHILS % (AUTO) 1.5 % (0.0-6.0); HEMOGLOBIN 6.8 g/dL (13.5-17.5); LYMPHOCYTES % (AUTO) 10.9 % (20.0-44.0); MONOCYTES % (AUTO) 10.6 % (2.0-12.0); NEUTROPHILS % (AUTO) 75.7 % (43.0-81.0)
[2017-12-01 06:36] LABS: INR 1.39 (0.87-1.13)
--- NOTE | 2017-12-01 06:36 | NUR ---
ASSISTANT PROFESSOR OF SPANISH NOTE RELAYED CRITICAL LAB VALUE HGB 6.[address] RUIZ, WITH ORDERS TO TRANSFUSE ONE UNIT PRBC. NOTED. WILL RELAY TO AM NURSE.
--- NOTE | 2017-12-01 07:26 | NUR ---
WASTEWATER PLANT OPERATOR CLOSING NOTE NO SIGNIFICANT CHANGES OVERNIGHT. ALL DUE MEDS GIVEN. PATIENT NEEDING FREQUENT REMINDERS. A/OX2 ABLE TO MAKE NEEDS KNOWN. NO RESPIRATORY DISTRESS NOTED, ON 3LPMO2 VIA NC. ON LEVO, TITRATED PER ORDER. HOB ELEVATED. KEPT CLEAN AND DRY. TURNED AND REPOSITIONED Q2 AND PRN. NO BLEEDING NOTED. ISOLATION PRECAUTIONS OBSERVED. RIGHT FOOT DRESSING DRY AND INTACT, WOUND VAC RUNNING, NO OUTPUT NOTED ON MY SHIFT. HOB ELEVATED. SIDE RAILS UP AND LOCKED. BED KEPT AT LOWEST POSITION. CALL LIGHT KEPT WITHIN EASY REACH. CONTINUITY OF CARE ENDORSED TO AM NURSE.
[2017-12-01 07:39] LABS: EOSINOPHILS % (MANUAL) 3 % (0-4); LYMPHOCYTES % (MANUAL) 15 % (16-48); MONOCYTES % (MANUAL) 5 % (0-11.0); NEUTROPHILS % (MANUAL) 77 (42-76)
[2017-12-01] MEDS: ACETYLCYSTEINE 10% SOLN 400 MG/4 ML VIAL NEB SCH ×3 (08:02→23:12)
[2017-12-01] MEDS: ALBUTEROL FS 2.5 MG/3 ML VIAL.NEB NEB SCH ×4 (08:02→19:32)
[2017-12-01] MEDS: DRONEDARONE HYDROCHLORIDE 400 MG TABLET PO SCH ×2 (08:35→17:56)
[2017-12-01] MEDS: POLYETHYLENE GLYCOL 3350 17 GM POWD.PACK PO SCH (08:35)
[2017-12-01] MEDS: SEVELAMER CARBONATE 800 MG TABLET PO SCH ×3 (08:36→17:56)
[2017-12-01] MEDS: MODAFINIL 100 MG TABLET PO SCH (08:37)
[2017-12-01] MEDS: LINEZOLID 600 MG TABLET PO SCH ×2 (08:37→22:04)
[2017-12-01] MEDS: LEVOTHYROXINE SODIUM 100 MCG TABLET PO SCH (08:37)
[2017-12-01] MEDS: ZINC SULFATE 220 MG CAPSULE PO SCH (08:37)
[2017-12-01] MEDS: ASCORBIC ACID 500 MG TABLET PO SCH (08:39)
[2017-12-01] MEDS: CLOPIDOGREL BISULFATE 75 MG TABLET PO SCH (08:39)
[2017-12-01] MEDS: ASPIRIN 81 MG TAB.CHEW PO SCH (08:39)
[2017-12-01] MEDS: DULOXETINE HCL 30 MG CAPSULE.DR PO SCH (08:39)
[2017-12-01] MEDS: NEPRO VAN 237 ML CAN PO SCH ×3 (08:40→17:58)
[2017-12-01] MEDS: DAKINS QUARTER STRENGTH (0.125%) 480 ML BOTTLE TOP SCH (08:56)
[2017-12-01] MEDS: prednisoLONE ACET 1% OPHT DROP 5 ML BOTTLE RIGHTEYE SCH ×4 (08:56→22:10)
[2017-12-01] MEDS: BRIMONIDINE TARTRATE OPHT SOLN 5 ML BOTTLE RIGHTEYE SCH ×3 (08:58→18:01)
[2017-12-01] MEDS: NOREPINEPHRINE 16 MG in IV D5W 500 ML IV PRN (10:14)
--- NOTE | 2017-12-01 11:09 | NUR ---
UNABLE TO START ANOTHER IV LINE ON PATIENT TO INFUSE ORDERED BLOOD. DR CARRENO AND QUYNH BRADLEY NOTIFIED. PER DR CARRENO INFUSE ORDERED PRBC TOMORROW WITH HD QUYNH BRADLEY NOTIFIED OF LABS WELL OF ORDER. PER HIS ORDERS WELL, INFUSE TOMORROW WITH HD
--- NOTE | 2017-12-01 18:00 | NUR ---
PATIENT REFUSING TURNING AND REPOSITIONING AT 1000, 1400, 1800- BENEFITS AND RISKS EXPLAINED MULTIPLE TIMES. FAMILY AT BEDSIDE.
[2017-12-01] MEDS: FLUCONAZOLE (100 MG) 100 MG TABLET PO SCH (18:07)
--- NOTE | 2017-12-01 19:00 | NUR ---
Received patient awake but falling asleep on and off ,drowsy at times,but follows commands, forgetful but comprehends.Appears very weakly and tired.with O2 via nasal cannula,denies any difficulty of breathing ,not in any distress,denies any pain.On LEVOPHED drip for BP support.Comfort care done,needs attended. 1999 Placed on BIPAP by RT 20/, R=16,FIO2 -40%. 2199 Tolerating BIPAP well,drowsy but arousable,able to swallow PO meds well.
--- NOTE | 2017-12-01 19:30 | NUR ---
RN CLOSING NOTES: PATIENT RESTING IN BED. AOX2 FORGETFUL, FOLLOWS COMMANDS. DENYING PAIN AT THE MOMENT. NO SOB NOTED. MILDINE ON SHAVONNE PATENT AND INTACT. HD CATH INTACT WITH NO SIGNS OF BLEEDING. WOUND VAC ON RIGHT LOWER EXTREMITY RUNNING AT 125 MMHG. DRESSING INTACT WITH NO BLEEDING OR LEAKING. PATIENT KEPT CLEAN THROUGHOUT SHIFT. PATIENT SR ON TELE MONITOR THROUGHOUT SHIFT, WITH FIRST DEGREE AV BLOCK AND BBB. FALL, ASPIRATION, AND CONTACT PRECAUTIONS IMPLEMENTED ENDROSED TO NEXT SHIFT
[2017-12-01] MEDS: TAMSULOSIN 0.4 MG CAP.SR.24H PO SCH (22:04)
[2017-12-01] MEDS: ATORVASTATIN 10 MG TABLET PO SCH (22:04)
[2017-12-02] VITALS (99 sets, daily range): BP systolic 66–145; BP diastolic 30–75
--- NOTE | 2017-12-02 | NUR ---
Tolerating BIPAP,not in any distress,drowsy but easily arousable.Still on Levophed drip, 0300 BP in the 80's titrated Levophed drip ,closely monitor BP. 0400 AM care done,wound dressings changed.Tolerated turning and moving. 0500 BP still labile ,levophed drip titrated up .
[2017-12-02] MEDS: BLOOD SUGAR DIAGNOSTIC 1 EACH STRIP IN SCH ×4 (01:05→18:09)
[2017-12-02] MEDS: INSULIN REGULAR, HUMAN 100 UNIT/ML 3 ML VIAL SQ PRN ×4 (01:08→18:08)
[2017-12-02] MEDS: IPRATROPIUM NEB FS 0.5 MG/2.5 ML AMPUL.NEB NEB SCH ×6 (03:25→23:30)
[2017-12-02] MEDS: NOREPINEPHRINE 16 MG in IV D5W 500 ML IV PRN ×3 (03:58→19:47)
[2017-12-02 05:00] LABS: BASOPHILS % (AUTO) 0.3 % (0.0-2.0); LYMPHOCYTES # (AUTO) 1.2 /CMM (0.8-4.8); LYMPHOCYTES % (AUTO) 13.4 % (20.0-44.0); MEAN CORPUSCULAR HGB CONC 32 g/dl (31.0-36.0); MEAN CORPUSCULAR VOLUME 82 fL (80-96); MONOCYTES # (AUTO) 0.8 /CMM (0.1-1.30); MONOCYTES % (AUTO) 8.8 % (2.0-12.0); NEUTROPHILS # (AUTO) 6.6 /CMM (1.8-8.9); NEUTROPHILS % (AUTO) 75.5 % (43.0-81.0); PLATELET COUNT (AUTO) 85 /CMM (150-450); RDW COEFFICIENT OF VARIATION 24.6 (11.5-15.0); RED BLOOD CELL COUNT(AUTO) 2.63 MIL/uL (4.5-6.0); WHITE BLOOD COUNT (AUTO) 8.8 K/uL (4.3-11.0)
[2017-12-02 05:14] LABS: HEMATOCRIT 22 % (39-51)
[2017-12-02 05:15] LABS: CALCIUM, SERUM 8.6 mg/dL (8.5-10.1); CARBON DIOXIDE 27 mmol/L (21-32); CHLORIDE 95 mmol/L (98-107); CREATININE 5.2 mg/dL (0.6-1.3); GLUCOSE 164 mg/dL (74-106); MAGNESIUM 2.2 mg/dL (1.8-2.4); PHOSPHORUS 3.3 mg/dL (2.5-4.9); POTASSIUM 4.4 mmol/L (3.5-5.1); SODIUM SERUM 132 mmol/L (136-145); UREA NITROGEN, BLOOD 78 mg/dL (7-18)
[2017-12-02 05:24] LABS: EOSINOPHILS % (MANUAL) 2 % (0-4); LYMPHOCYTES % (MANUAL) 16 % (16-48); MONOCYTES % (MANUAL) 7 % (0-11.0); NEUTROPHILS % (MANUAL) 75 (42-76)
--- NOTE | 2017-12-02 07:00 | NUR ---
Remains stable,fro hemodialysis today ,to give 1 unit PRBC with dialysis.Called blood bank to follow up,neede new order for typa and screen .
[2017-12-02] MEDS: ACETYLCYSTEINE 10% SOLN 400 MG/4 ML VIAL NEB SCH ×3 (07:04→23:30)
[2017-12-02] MEDS: ALBUTEROL FS 2.5 MG/3 ML VIAL.NEB NEB SCH ×4 (07:04→20:10)
[2017-12-02] MEDS: LEVOTHYROXINE SODIUM 100 MCG TABLET PO SCH ×2 (07:30→08:13)
--- NOTE | 2017-12-02 07:30 | NUR ---
RN INITIAL NOTES: Rec'd pt on bed, not in any distress, A/O x 1-2 w/ confusion & forgetfulness. Pt is drowsy, verbalized that he doesn't feel good. Pt had an episode of vomiting x 1, small amount. On NC/3lpm, sating at 99%. On telemonitor, SR w/ 1' AVB, BBB, occasional V-pacing 77 bpm. Has R IJ HD cath intact. Has SHAVONNE midline w/ Levo Drip x 25 mcg/min infusing well. Has wound vac on R heel. Provided comfort & safety measures. Bed kept low & in locked pos. Call light placed w/in reach. Isolation prec observed. Will continue to monitor & attend pt needs. Pt is sched to have HD & BT 1u PRBC.
[2017-12-02] MEDS: SEVELAMER CARBONATE 800 MG TABLET PO SCH ×4 (08:00→17:41)
--- NOTE | 2017-12-02 08:00 | NUR ---
Pt started on HD c/o Bill. Will closely monitor. Pt noted to be too drowsy & weak. Held AM meds d/t risk of aspiration.
[2017-12-02] MEDS: LINEZOLID 600 MG TABLET PO SCH ×3 (08:13→21:00)
[2017-12-02] MEDS: CLOPIDOGREL BISULFATE 75 MG TABLET PO SCH ×2 (08:13→09:00)
[2017-12-02] MEDS: MODAFINIL 100 MG TABLET PO SCH ×2 (08:13→09:00)
[2017-12-02] MEDS: ASCORBIC ACID 500 MG TABLET PO SCH ×2 (08:13→09:00)
[2017-12-02] MEDS: POLYETHYLENE GLYCOL 3350 17 GM POWD.PACK PO SCH ×2 (08:13→09:00)
[2017-12-02] MEDS: DULOXETINE HCL 30 MG CAPSULE.DR PO SCH ×2 (08:13→09:00)
[2017-12-02] MEDS: ONDANSETRON HCL/PF 4 MG/2 ML VIAL IVP PRN (08:13)
[2017-12-02] MEDS: DRONEDARONE HYDROCHLORIDE 400 MG TABLET PO SCH ×3 (08:13→17:00)
[2017-12-02] MEDS: ZINC SULFATE 220 MG CAPSULE PO SCH ×2 (08:13→09:00)
[2017-12-02] MEDS: ASPIRIN 81 MG TAB.CHEW PO SCH ×2 (08:13→09:00)
[2017-12-02] MEDS: NEPRO VAN 237 ML CAN PO SCH ×3 (08:17→17:00)
[2017-12-02] MEDS: prednisoLONE ACET 1% OPHT DROP 5 ML BOTTLE RIGHTEYE SCH ×4 (08:27→21:07)
[2017-12-02] MEDS: DAKINS QUARTER STRENGTH (0.125%) 480 ML BOTTLE TOP SCH (08:27)
[2017-12-02] MEDS: BRIMONIDINE TARTRATE OPHT SOLN 5 ML BOTTLE RIGHTEYE SCH ×3 (08:27→18:04)
[2017-12-02] MEDS: ALBUMIN 25% 25 GM in PREMIX 1 EA IV PRN (09:27)
--- NOTE | 2017-12-02 11:30 | NUR ---
HD ended w/ 200 UF. Pt tolerated the procedure. BP monitored closely & titrated pressors accordingly. 1 unit of PRBC transfused during HD, no BT reaction noted during transfusion.
--- NOTE | 2017-12-02 17:13 | NUR ---
ABG relayed to Dr. Jung w/ orders to put back pt on BIPAP & then do ABG 1 hour after. RT made aware.
[2017-12-02 17:18] LABS: ABG OXYGEN SATURATION 90.8 % (92.0-98.5); ABG PCO2 60.7 mmHg (35.0-45.0); ABG PH 7.271 (7.350-7.450); ABG PO2 67.1 mmHg (75.0-100.0); AaDO2 60.9 mmHg; COHb 0.9 % (0.5-1.5); MetHb 0.5 % (0.0-1.5); O2Hb 89.5 % (94.0-97.0); SITE, ABG Right Brachial; VENT MODE, BG NASAL CANNULA
[2017-12-02] MEDS: FLUCONAZOLE (100 MG) 100 MG TABLET PO SCH (17:40)
[2017-12-02 18:19] LABS: ABG BASE EXCESS -0.3 mmol/L; ABG OXYGEN SATURATION 95.9 % (92.0-98.5); ABG PH 7.324 (7.350-7.450); ABG PO2 96.8 mmHg (75.0-100.0); AaDO2 93.5 mmHg; COHb 0.8 % (0.5-1.5); MetHb 0.6 % (0.0-1.5); O2Hb 94.6 % (94.0-97.0); SITE, ABG Left Radial; VENT MODE, BG ST 20/5 R 16
--- NOTE | 2017-12-02 18:51 | NUR ---
RN CLOSING NOTES: Pt remains drowsy. Placed on BIPAP d/t AMS (ABG 1' post improved). On telemonitor, still SR w/ 1' AVB, BBB, occasional V-pacing. R IJ HD cath kept intact. HD done today w/ 200 mL out, transfused 1 unit of PRBC, Amikacin not given d/t random Amikacin result (pharmacy is aware). SHAVONNE midline kept patent & intact w/ Levo Drip x 27 mcg/min infusing well. Wound vac on R heel. Kept well rested. Needs attended. Bed kept low & in locked pos. Call light placed w/in reach. Isolation prec observed. Will endorse to PM RN for CRYSTAL. Secured consent for scheduled wound debridement tomorrow. Signed by . All ordered supplies prepared at bedside.
--- NOTE | 2017-12-02 19:30 | NUR ---
DAYCARE WORKER INITIAL SHIFT NOTES RECEIVED PATIENT IN BED, ASLEEP AT THIS TIME, AROUSABLE TO NAME/LIGHT TOUCH, A/O X2, BUT LETHARGIC, DOSING OFF AFTER GIVING SIMPLE RESPONSE. PATIENT ON BIPAP AT PRESCRIBED SETTINGS, TOLERATING WELL, SPO2 WNL. PATIENT ON TELEMETRY MONITORING, SHOWING SINUS RHYTHM WITH 1ST DEGREE AV BLOCK, BBB, OCCASIONAL VPACING, AND OCCASIONAL PVCs LEFTV UPPER ARM MIDLINE PATENT AND INTACT, ONGOING LEVOPHED DRIP, CURRENTLY @ 29MCG, WILL TITRATE ACCORDINGLY. RIGHT FOOT TO WOUND VAC @ 125MMHG, NOTED WITH MINIMAL BROWN SEROUS FLUID OUTPUT. CALL LIGHT WITHIN EASY REACH, BED IN LOWEST AND LOCKED POSITION, HOB ELEVATED FOR COMFORT. WILL CONTINUE TO CLOSELY MONITOR
--- NOTE | 2017-12-02 21:00 | NUR ---
RN NOTES PM MEDS HELD FOR INCREASED ASPIRATION RISK DUE TO LETHARGY. WILL MONITOR CLOSELY
[2017-12-02] MEDS: TAMSULOSIN 0.4 MG CAP.SR.24H PO SCH (21:05)
[2017-12-02] MEDS: ATORVASTATIN 10 MG TABLET PO SCH (21:06)
[2017-12-03] VITALS (103 sets, daily range): BP systolic 88–130; BP diastolic 49–90
[2017-12-03] MEDS: BLOOD SUGAR DIAGNOSTIC 1 EACH STRIP IN SCH ×5 (00:14→23:52)
[2017-12-03] MEDS: INSULIN REGULAR, HUMAN 100 UNIT/ML 3 ML VIAL SQ PRN ×5 (00:16→23:53)
--- NOTE | 2017-12-03 02:00 | NUR ---
HOSPITAL ACCOUNT MANAGER NOTES BIPAP MASK ADJUSTED MULTIPLE TIMES PER PATIENT REQUEST, STATING "ITS UNCOMFORTABLE". RT MARIANELA AT BEDSIDE
[2017-12-03] MEDS: IPRATROPIUM NEB FS 0.5 MG/2.5 ML AMPUL.NEB NEB SCH ×6 (03:30→20:17)
[2017-12-03] MEDS: NOREPINEPHRINE 16 MG in IV D5W 500 ML IV PRN ×3 (03:41→20:48)
[2017-12-03 05:03] LABS: BASOPHILS % (AUTO) 0.2 % (0.0-2.0); EOSINOPHILS % (AUTO) 0.6 % (0.0-6.0); HEMATOCRIT 22 % (39-51); LYMPHOCYTES # (AUTO) 1.6 /CMM (0.8-4.8); LYMPHOCYTES % (AUTO) 15.8 % (20.0-44.0); MEAN CORPUSCULAR HGB CONC 31 g/dl (31.0-36.0); MEAN CORPUSCULAR VOLUME 84 fL (80-96); MONOCYTES # (AUTO) 1.1 /CMM (0.1-1.30); MONOCYTES % (AUTO) 10.5 % (2.0-12.0); NEUTROPHILS # (AUTO) 7.4 /CMM (1.8-8.9); NEUTROPHILS % (AUTO) 72.9 % (43.0-81.0); PLATELET COUNT (AUTO) 84 /CMM (150-450); RDW COEFFICIENT OF VARIATION 22.2 (11.5-15.0); RED BLOOD CELL COUNT(AUTO) 2.66 MIL/uL (4.5-6.0); WHITE BLOOD COUNT (AUTO) 10.1 K/uL (4.3-11.0)
[2017-12-03 05:16] LABS: CALCIUM, SERUM 8.1 mg/dL (8.5-10.1); CARBON DIOXIDE 28 mmol/L (21-32); CHLORIDE 96 mmol/L (98-107); GLUCOSE 173 mg/dL (74-106); POTASSIUM 4.5 mmol/L (3.5-5.1); SODIUM SERUM 135 mmol/L (136-145); UREA NITROGEN, BLOOD 61 mg/dL (7-18)
[2017-12-03 06:16] LABS: LYMPHOCYTES % (MANUAL) 20 % (16-48); MONOCYTES % (MANUAL) 8 % (0-11.0); NEUTROPHILS % (MANUAL) 72 (42-76)
--- NOTE | 2017-12-03 06:40 | NUR ---
INSURANCE CLAIMS ASSISTANT NOTES RECEIVED CALL FROM LAB REGARDING LAB VALUES H/H 7.0. DR GALLARDO MADE AWARE OF LATEST LAB RESULTS. PER DR GALLARDO NO TRANSFUSION AT THIS TIME. WILL CONTINUE TO CLOSELY MONITOR
--- NOTE | 2017-12-03 07:00 | NUR ---
MARINE EQUIPMENT RESEARCH ENGINEER CLOSING NOTES PATIENT REMAINS IN BED, ON CONTINUOUS BIPAP. BIPAP MASK ADJUSTED MULTIPLE TIMES THROUGHOUT THE SHIFT FOR PATIENT COMFORT. WILL ENDORSE THE PATIENT TO THE AM SHIFT NURSE FOR CONTINUITY OF CARE
--- NOTE | 2017-12-03 07:15 | NUR ---
RN INITIAL NOTES: Rec'd pt on bed, not in any distress, A/O x 1-2 w/ confusion & forgetfulness. Pt is drowsy. On BIPAP, sating at 100%. On telemonitor, SR w/ 1' AVB, BBB, occasional V-pacing & PVCs 80 bpm. Has R IJ HD cath intact. Has SHAVONNE midline w/ Levo Drip x 29 mcg/min infusing well. Has wound vac on R heel. Provided comfort & safety measures. Bed kept low & in locked pos. Call light placed w/in reach. Isolation prec observed. Will continue to monitor & attend pt needs. Pt is scheduled for wound debridement today.
[2017-12-03] MEDS: ALBUTEROL FS 2.5 MG/3 ML VIAL.NEB NEB SCH ×4 (08:09→20:17)
[2017-12-03] MEDS: ACETYLCYSTEINE 10% SOLN 400 MG/4 ML VIAL NEB SCH ×2 (08:09→15:13)
[2017-12-03] MEDS: POLYETHYLENE GLYCOL 3350 17 GM POWD.PACK PO SCH (09:00)
[2017-12-03] MEDS: DAKINS QUARTER STRENGTH (0.125%) 480 ML BOTTLE TOP SCH (09:00)
--- NOTE | 2017-12-03 09:30 | NUR ---
Dr. Montero (style advisor) came & did wound care on pt's R heel, wound vac dressing changed. Photos taken & placed in the chart.
--- NOTE | 2017-12-03 09:40 | NUR ---
Pt seen & examined by Dr. Finney w/ orders to place pt back on NC at 3lpm then ABG after 1 hour, RT made aware. Pt is awake but still little drowsy. Pt able to take his AM meds w/o sign of aspiration.
[2017-12-03] MEDS: DRONEDARONE HYDROCHLORIDE 400 MG TABLET PO SCH ×2 (09:51→17:00)
[2017-12-03] MEDS: LEVOTHYROXINE SODIUM 100 MCG TABLET PO SCH (09:51)
[2017-12-03] MEDS: CLOPIDOGREL BISULFATE 75 MG TABLET PO SCH (09:51)
[2017-12-03] MEDS: MODAFINIL 100 MG TABLET PO SCH (09:51)
[2017-12-03] MEDS: LINEZOLID 600 MG TABLET PO SCH (09:51)
[2017-12-03] MEDS: ZINC SULFATE 220 MG CAPSULE PO SCH (09:51)
[2017-12-03] MEDS: NEPRO VAN 237 ML CAN PO SCH ×3 (09:51→17:00)
[2017-12-03] MEDS: SEVELAMER CARBONATE 800 MG TABLET PO SCH ×3 (09:51→18:00)
[2017-12-03] MEDS: ASPIRIN 81 MG TAB.CHEW PO SCH (09:51)
[2017-12-03] MEDS: DULOXETINE HCL 30 MG CAPSULE.DR PO SCH (09:51)
[2017-12-03] MEDS: ASCORBIC ACID 500 MG TABLET PO SCH (09:51)
[2017-12-03] MEDS: BRIMONIDINE TARTRATE OPHT SOLN 5 ML BOTTLE RIGHTEYE SCH ×3 (10:05→17:39)
[2017-12-03] MEDS: prednisoLONE ACET 1% OPHT DROP 5 ML BOTTLE RIGHTEYE SCH ×4 (10:05→20:59)
[2017-12-03 10:56] LABS: ABG BASE EXCESS -0.8 mmol/L; ABG OXYGEN SATURATION 96.5 % (92.0-98.5); ABG PCO2 57.1 mmHg (35.0-45.0); ABG PH 7.279 (7.350-7.450); ABG PO2 102.1 mmHg (75.0-100.0); AaDO2 88.3 mmHg; COHb 0.7 % (0.5-1.5); MetHb 0.4 % (0.0-1.5); O2Hb 95.4 % (94.0-97.0); SITE, ABG Left Brachial
--- NOTE | 2017-12-03 11:00 | NUR ---
ABG results relayed to Dr. Finney w/ orders to place pt back on BIPAP. RT made aware.
--- NOTE | 2017-12-03 15:10 | NUR ---
Wound debridement on the sacral & right thigh done by Dr. Dickens & Trish, REJI. Photos taken & placed in the chart.
[2017-12-03] MEDS: FLUCONAZOLE (100 MG) 100 MG TABLET PO SCH (18:00)
--- NOTE | 2017-12-03 18:08 | NUR ---
Cyndi WEAVING MACHINE OPERATOR updated about pt condition. Made her aware re: PO meds held d/t mental & respiratory status. WEAVING MACHINE OPERATOR to change PO Abx to IV.
--- NOTE | 2017-12-03 18:33 | NUR ---
RT END OF THE SHIFT REPORT: PT. 77 Y OLD MALE REC. ON BIPAP WITH NOTED SETTINGS, 0700 AM @ [address] MERCER ORDER OFF BIPAP PLACED ON 4L/MIN O2 VIA N/C KOREY. WELL @1105 POST ABG PLACED BACK ON BIPAP WITH NOTED SETTINGS, ALARMS ARE SET AND FUNCTIONAL. EQUAL CHEST RISE NOTED. B/S BILATERALLY RALES TX'S GIVEN INLINE AND NO ADVERSE REACTION NOTED. NO CHANGES PER DR. MERCER T/O DAY AND PT. REMAIN STABLE. BIPAP PLUGGED INTO RED OUT LET. AMBU BAG REMAIN AT THE BEDSIDE. REPORT WILL PASS TO PM SHIFT. Addendum: 12/03/17 at 1835 by GUNNAR CUNNINGHAM RT Amended: Links added.
--- NOTE | 2017-12-03 19:30 | NUR ---
SPORTSPERSONS INITIAL SHIFT NOTES RECEIVED PATIENT IN BED, ASLEEP AT THIS TIME, AROUSABLE TO NAME/LIGHT TOUCH, A/O X2, BUT LETHARGIC, DOSING OFF AFTER GIVING SIMPLE RESPONSE. PATIENT ON BIPAP AT PRESCRIBED SETTINGS, TOLERATING WELL, SPO2 WNL AT THIS TIME. PATIENT ON TELEMETRY MONITORING, SHOWING SINUS RHYTHM WITH 1ST DEGREE AV BLOCK, BBB, OCCASIONAL AV-PACING, AND OCCASIONAL PVCs. NOTED WITH LEFT UPPER ARM MIDLINE, ONGOING LEVOPHED DRIP, CURRENTLY @ 27MCG, WILL TITRATE ACCORDINGLY, ALSO NOTED WITH LEFT HAND #20 GAUGE, SL. BOTH IV ACCESSES FLUSHED WITH NS, PATENT AND INTACT, FREE FROM ANY S/S OF INFILTRATION OR PHLEBITIS. RIGHT FOOT TO WOUND VAC @ 125MMHG, NOTED WITH MINIMAL SEROUS FLUID OUTPUT. CALL LIGHT WITHIN EASY REACH, BED IN LOWEST AND LOCKED POSITION, HOB ELEVATED FOR COMFORT. WILL CONTINUE TO CLOSELY MONITOR
[2017-12-03] MEDS: LINEZOLID RTU BAG 600 MG in PREMIX 1 EA IV SCH (20:47)
[2017-12-03] MEDS: TAMSULOSIN 0.4 MG CAP.SR.24H PO SCH (21:00)
[2017-12-03] MEDS: ATORVASTATIN 10 MG TABLET PO SCH (21:00)
--- NOTE | 2017-12-03 21:33 | NUR ---
RN NOTES PM MEDS HELD FOR INCREASED ASPIRATION RISK DUE TO LETHARGY. PATIENT ALSO ON CONTINUOUS BIPAP, UNABLE TO TOLERATE O2 VIA NC OR ROOM AIR. WILL MONITOR CLOSELY
[2017-12-04] VITALS (117 sets, daily range): BP systolic 50–136; BP diastolic 27–87
[2017-12-04] MEDS: IPRATROPIUM NEB FS 0.5 MG/2.5 ML AMPUL.NEB NEB SCH ×7 (00:19→23:18)
[2017-12-04] MEDS: ACETYLCYSTEINE 10% SOLN 400 MG/4 ML VIAL NEB SCH ×4 (00:20→23:18)
[2017-12-04] MEDS: NOREPINEPHRINE 16 MG in IV D5W 500 ML IV PRN ×3 (05:11→20:40)
[2017-12-04] MEDS: BLOOD SUGAR DIAGNOSTIC 1 EACH STRIP IN SCH ×3 (05:34→18:35)
[2017-12-04] MEDS: INSULIN REGULAR, HUMAN 100 UNIT/ML 3 ML VIAL SQ PRN ×2 (05:35→18:39)
--- NOTE | 2017-12-04 06:47 | NUR ---
CARRY ALL DRIVER CLOSING NOTES PATIENT RESTING IN BED, APPEARS COMFORTABLE AT THIS TIME. CONTINUES ON BIPAP AT PRESCRIBED SETTINGS, TOLERATING WELL. WILL ENDORSE TYHE PATIENT TO THE AM SHIFT NURSE FOR CONTINUITY OF CARE
[2017-12-04] MEDS: LEVOTHYROXINE SODIUM 100 MCG TABLET PO SCH (07:37)
[2017-12-04] MEDS: SEVELAMER CARBONATE 800 MG TABLET PO SCH ×3 (07:37→18:35)
[2017-12-04] MEDS: ALBUTEROL FS 2.5 MG/3 ML VIAL.NEB NEB SCH ×2 (07:59→11:15)
--- NOTE | 2017-12-04 07:59 | NUR ---
RT MED NOTE UNABLE TO SCAN PT WRISTBAND AND MEDS. WOW SCANNER MALFUNCTION. NO AVAILABLE WOWS AVAILABLE IN ICU.
--- NOTE | 2017-12-04 08:00 | NUR ---
PT AOX2. DENIES PAIN. ADMITS TO LIGHT NAUSEA AND VOMITING. MARY IV
[2017-12-04] MEDS: ONDANSETRON HCL/PF 4 MG/2 ML VIAL IVP PRN ×2 (08:13→21:47)
[2017-12-04] MEDS: NEPRO VAN 237 ML CAN PO SCH ×3 (08:54→18:35)
[2017-12-04] MEDS: POLYETHYLENE GLYCOL 3350 17 GM POWD.PACK PO SCH (09:00)
[2017-12-04] MEDS: ASPIRIN 81 MG TAB.CHEW PO SCH (09:01)
[2017-12-04] MEDS: MODAFINIL 100 MG TABLET PO SCH (09:01)
[2017-12-04] MEDS: ZINC SULFATE 220 MG CAPSULE PO SCH (09:01)
[2017-12-04] MEDS: DULOXETINE HCL 30 MG CAPSULE.DR PO SCH (09:01)
[2017-12-04] MEDS: DRONEDARONE HYDROCHLORIDE 400 MG TABLET PO SCH (09:02)
[2017-12-04] MEDS: ASCORBIC ACID 500 MG TABLET PO SCH (09:02)
[2017-12-04] MEDS: CLOPIDOGREL BISULFATE 75 MG TABLET PO SCH (09:02)
[2017-12-04] MEDS: LINEZOLID RTU BAG 600 MG in PREMIX 1 EA IV SCH ×2 (09:04→20:01)
[2017-12-04] MEDS: DAKINS QUARTER STRENGTH (0.125%) 480 ML BOTTLE TOP SCH (09:05)
[2017-12-04] MEDS: prednisoLONE ACET 1% OPHT DROP 5 ML BOTTLE RIGHTEYE SCH ×4 (09:06→20:02)
[2017-12-04] MEDS: BRIMONIDINE TARTRATE OPHT SOLN 5 ML BOTTLE RIGHTEYE SCH ×3 (09:06→18:35)
--- NOTE | 2017-12-04 10:00 | NUR ---
PT INITIATED ON HD. MAINTAINS BP AT 30 MICS OF LEVO. STATES THAT NAUSEA COMPLETELY RESOLVED. ASSISTED WITH BREAKFAST 100%. MEDICATED SCHEDULED.
--- NOTE | 2017-12-04 14:00 | NUR ---
UPON ROUNDING AT 1320 PATIENT'S BP NOTED TO DROP TO 88/50. PT WAS ALERT AND ASSISTED WITH ORAL HYGIENE BY POST LUNCH. HE DENIED FEELING DIZZY OR LIGHTHEADED. PT'S BP CUFF REPOSITIONED AND BP RECYCLED. SEVERAL TIMES. 71/47 AND 62/43 LEVOPHED TITRATED UP PER PROTOCOL. AT 13:37 PT NOTED TO BECOME UNRESPONSIVE VTACH ON MONITOR. YUAN HOLLINGSWORTH WAS CALLED. PT PLACED ON BIPHASIC MONITOR AND HIGH FLOW O2 MASK, LEVOPHED TITRATED PER PROTOCOL 40 JO/KG/MIN WITH BP 101/61 AND VTACH RESOLV[address] WELL. DR MCCANN RESPONDED TO CODE. UPDATE PROVIDED AT BEDSIDE. 250 NS GIVEN. LABS ORDERED STAT.
[2017-12-04 14:16] LABS: BASOPHILS % (AUTO) 0.1 % (0.0-2.0); EOSINOPHILS % (AUTO) 1.2 % (0.0-6.0); HEMATOCRIT 21 % (39-51); LYMPHOCYTES # (AUTO) 1.2 /CMM (0.8-4.8); LYMPHOCYTES % (AUTO) 12.6 % (20.0-44.0); MEAN CORPUSCULAR HGB CONC 31 g/dl (31.0-36.0); MEAN CORPUSCULAR VOLUME 84 fL (80-96); MONOCYTES # (AUTO) 0.7 /CMM (0.1-1.30); NEUTROPHILS # (AUTO) 7.6 /CMM (1.8-8.9); NEUTROPHILS % (AUTO) 79.1 % (43.0-81.0); PLATELET COUNT (AUTO) 85 /CMM (150-450); RDW COEFFICIENT OF VARIATION 22.6 (11.5-15.0); RED BLOOD CELL COUNT(AUTO) 2.51 MIL/uL (4.5-6.0); WHITE BLOOD COUNT (AUTO) 9.6 K/uL (4.3-11.0)
--- NOTE | 2017-12-04 14:18 | NUR ---
SECOND CODE CALLED AT 1418 DUE TO LOW BP 75/[address] OGDEN AT BEDSIDE FOR POSSIBLE INTUBATION. PT'S INTERNALLY IMPLANTED DEFIBRILLATOR DELIVERED 2 SUBSEQUENT SHOCKS AND VTACH RESOLVED BP 104/87, HOWEVER PT REMAINED UNRESPONSIVE. PT BAGGED BY RT CONTINUOUSLY AND REGAIN CONSCIOUSNESS SPONTANEOUSLY UP ON VTACH RESOLVING. PT PLACED ON BIPAP WITH PREVIOUS SETTINGS. AOX2 FOLLOWS COMMANDS.
[2017-12-04 14:27] LABS: CALCIUM, SERUM 7.9 mg/dL (8.5-10.1); CARBON DIOXIDE 25 mmol/L (21-32); CHLORIDE 95 mmol/L (98-107); CREATININE 4.2 mg/dL (0.6-1.3); GLUCOSE 255 mg/dL (74-106); POTASSIUM 4.2 mmol/L (3.5-5.1); SODIUM SERUM 133 mmol/L (136-145); UREA NITROGEN, BLOOD 57 mg/dL (7-18)
[2017-12-04 14:29] LABS: HEMOGLOBIN 6.5 g/dL (13.5-17.5)
--- NOTE | 2017-12-04 14:48 | NUR ---
[place] INITIATED UNABLE TO SCAN, BP NOT READING.
--- NOTE | 2017-12-04 14:49 | NUR ---
PT PLACED BACK ON BIPAP POST CODE BLUE AND RETURN OF SPONT RESPIRATIONS; MD AND RN AT BEDSIDE.
[2017-12-04] MEDS: AMIKACIN 500 MG in IV D5W 100 ML IV PRN (15:58)
[2017-12-04 16:14] LABS: BAND % (MANUAL) 4 % (0.0-5.0); EOSINOPHILS % (MANUAL) 1 % (0-4); LYMPHOCYTES % (MANUAL) 11 % (16-48); MONOCYTES % (MANUAL) 5 % (0-11.0); NEUTROPHILS % (MANUAL) 79 (42-76)
[2017-12-04] MEDS ORDERED: AMIODARONE 900 MG in IV D5W 500 ML IV PRN (16:30)
[2017-12-04 16:47] LABS: THYROID STIMULATING HORMONE 3.845 uIU/mL (0.358-3.74)
[2017-12-04 17:03] LABS: TROPONIN I 0.407 ng/mL (0.00-0.056)
--- NOTE | 2017-12-04 17:10 | NUR ---
DR REYNA NOTIFIED TROP 0.407 NO ORDERS.
--- NOTE | 2017-12-04 17:37 | NUR ---
DR REYNA NOTIFIED VIA VOICE MAIL RESULTS PF BIOTRONIC DEVICE REVIEW. AWAITING FOR ORDERS.
[2017-12-04] MEDS ORDERED: AMIODARONE 150 MG in IV D5W 100 ML IV ONE (18:45)
[2017-12-04] MEDS: PHENYLEPHRINE 80 MG in IV D5W 250 ML IV PRN (19:01)
--- NOTE | 2017-12-04 19:22 | NUR ---
AMIODARONE BOLUS INITIATED.
--- NOTE | 2017-12-04 19:30 | NUR ---
RADIO ADJUSTER INITIAL SHIFT NOTES RECEIVED PATIENT FROM DAY SHIFT NURSE TY. PATIENT IN BED, AWAKE, ALERT AND ORIENTED X2, ABLE TO VERBALIZE NEEDS. BREATHING EVEN AND NONLABORED AT THIS TIME, TOLERATING O2 VIA NC @ 2LPM. BEDSIDE TELEMETRY MONITORING SHOWS AFIB WITH 1ST DEGREE AV BLOCK, BBB, OCCASIONAL PVCs AND PACs, OCCASIONAL A AND V PACING. AMIODARONE BOLUS INITIATED BY DAY SHIFT NURSE, WILL START AMIODARONE DRIP ORDERED AFTER COMPLETION OF BOLUS. PATIENT ON LEVOPHED DRIP @ 40MCG/MIN, WELL NEOSYNEPHRINE DRIP, CURRENTLY @ 100MCG/MIN, WILL TITRATE ACCORDINGLY. PATIENT DENIES ANY PAIN OR DISCOMFORT AT THIS TIME, REPOSITIONED FOR COMFORT. CALL LIGHT WITHIN EASY REACH, BED IN LOWEST AND LOCKED POSITION, HOB ELEVATED. WILL CONTINUE TO CLOSELY MONITOR
--- NOTE | 2017-12-04 19:47 | NUR ---
Received pt on 5L NC, placed pt on BIPAP 25/5 RR16, 35%, PT STABLE TOLERATING SETTINGS WELL, ambu bag at bedside, BIPAP machine is plugged into red outlet, alarms audible. Addendum: 12/04/17 at 1948 by FRANCISCO DAWSON RT Amended: Links added.
--- NOTE | 2017-12-04 21:45 | NUR ---
BARREL POLISHER NOTES WHILE ON BIPAP, PATIENT NOTED WITH EMESIS X1, APPROXIMATELY 600ML. PATIENT IMMEDIATELY REMOVED FROM BIPAP AND PLACED ON NASAL CANNULA @ 2LPM, SPO2 100%. ZOFRAN ADMINISTERED. WHILE RENDERING BED BATH, PATIENT NOTED WITH SECOND EPISODE OF EMESIS, APPROXIMATELY 400 ML. BED BATH COMPLETED, PATIENT STATES "I FEEL BETTER, THE NAUSEA IS LESS NOW." WILL CONTINUE TO CLOSELY MONITOR THE PATIENT
--- NOTE | 2017-12-04 21:47 | NUR ---
PT HAD NAUSEA AND VOMITING AFTER WAS PLACED ON BIPAP, PER RN PT ATE HIS DINNER AROUND 1800, PT PLACED ON 2 L NC, SATURATION AT 100%, NO SOB OR DISTRESS NOTED AT THIS TIME, WILL CONTINUE MONITORING. Addendum: 12/04/17 at 2149 by FRANCISCO DAWSON RT Amended: Links added.
[2017-12-04] MEDS: ATORVASTATIN 10 MG TABLET PO SCH (22:00)
[2017-12-04] MEDS: TAMSULOSIN 0.4 MG CAP.SR.24H PO SCH (22:00)
[2017-12-05] VITALS (125 sets, daily range): BP systolic 40–131; BP diastolic 22–89
[2017-12-05] MEDS: BLOOD SUGAR DIAGNOSTIC 1 EACH STRIP IN SCH ×4 (00:24→17:34)
[2017-12-05] MEDS: INSULIN REGULAR, HUMAN 100 UNIT/ML 3 ML VIAL SQ PRN ×4 (00:25→18:03)
[2017-12-05] MEDS ORDERED: PHENYLEPHRINE 10 MG/ML VIAL ONE (01:41)
--- NOTE | 2017-12-05 01:51 | NUR ---
MARKETING TEAM LEAD NOTES AMIODARONE DRIP TITRATED PER PROTOCOL DOWN TO 0.5MG/MIN. BEDSIDE MONITOR STILL SHOWING AFIB. WILL CONTINUE TO CLOSELY MONITOR
[2017-12-05] MEDS: PHENYLEPHRINE 80 MG in IV D5W 250 ML IV PRN ×4 (01:56→21:00)
[2017-12-05] MEDS: IPRATROPIUM NEB FS 0.5 MG/2.5 ML AMPUL.NEB NEB SCH ×6 (02:30→23:16)
[2017-12-05] MEDS: NOREPINEPHRINE 16 MG in IV D5W 500 ML IV PRN ×4 (02:46→22:58)
--- NOTE | 2017-12-05 03:00 | NUR ---
CIRCULAR HEAD SAW OPERATOR NOTES PATIENT PLACED ON BIPAP BY RT. PATIENT NOTED TO TAKE BIPAP OFF DUE TO DISTRESS. RN WALKED IN TO HELP PATIENT, PATIENT NOTED WITH EPISODE OF PROJECTILE VOMIT, HITTING RN. PATIENT PLACED BACK ON O2 VIA NC @ 2LPM. ZOFRAN ADMINISTERED
[2017-12-05] MEDS: ONDANSETRON HCL/PF 4 MG/2 ML VIAL IVP PRN ×2 (03:28→08:42)
[2017-12-05] MEDS: ACETYLCYSTEINE 10% SOLN 400 MG/4 ML VIAL NEB SCH ×3 (07:02→23:16)
[2017-12-05] MEDS: NEPRO VAN 237 ML CAN PO SCH ×3 (08:00→17:00)
[2017-12-05] MEDS: Magnesium 1GM/D5W 100ML PREMIX 100 ML IV SCH ×2 (08:12→08:42)
[2017-12-05] MEDS: LINEZOLID RTU BAG 600 MG in PREMIX 1 EA IV SCH ×2 (08:42→21:59)
[2017-12-05 08:47] LABS: BASOPHILS % (AUTO) 0.2 % (0.0-2.0); EOSINOPHILS % (AUTO) 0.1 % (0.0-6.0); HEMATOCRIT 24 % (39-51); HEMOGLOBIN 7.4 g/dL (13.5-17.5); LYMPHOCYTES # (AUTO) 0.8 /CMM (0.8-4.8); LYMPHOCYTES % (AUTO) 7.6 % (20.0-44.0); MEAN CORPUSCULAR HGB CONC 31 g/dl (31.0-36.0); MEAN CORPUSCULAR VOLUME 85 fL (80-96); MONOCYTES # (AUTO) 1.1 /CMM (0.1-1.30); MONOCYTES % (AUTO) 10.6 % (2.0-12.0); NEUTROPHILS # (AUTO) 8.4 /CMM (1.8-8.9); NEUTROPHILS % (AUTO) 81.5 % (43.0-81.0); PLATELET COUNT (AUTO) 107 /CMM (150-450); RDW COEFFICIENT OF VARIATION 20.5 (11.5-15.0); RED BLOOD CELL COUNT(AUTO) 2.81 MIL/uL (4.5-6.0); WHITE BLOOD COUNT (AUTO) 10.3 K/uL (4.3-11.0)
[2017-12-05 08:52] LABS: CARBON DIOXIDE 24 mmol/L (21-32); CHLORIDE 91 mmol/L (98-107); GLUCOSE 197 mg/dL (74-106); POTASSIUM 4.1 mmol/L (3.5-5.1); SODIUM SERUM 128 mmol/L (136-145); UREA NITROGEN, BLOOD 67 mg/dL (7-18)
[2017-12-05] MEDS: DULOXETINE HCL 30 MG CAPSULE.DR PO SCH (09:00)
[2017-12-05] MEDS: AMIODARONE HCL 200 MG TABLET PO SCH ×3 (09:00→16:14)
[2017-12-05] MEDS: POLYETHYLENE GLYCOL 3350 17 GM POWD.PACK PO SCH (09:00)
--- NOTE | 2017-12-05 09:00 | NUR ---
Up on 0730 am assessment pt vomited about 600 ml of yellow gastric secretions. Verbalizes he is unable to take food on meds po at this time. denies pain. Medicated for nausea with Zofran IV. Breakfast and meds held. Orders for Amiodarone po clarified with Dr. Carvalho, will start Amio po after gtt is completed. Dr Finney here to see pt. ok to told BPBC, continue off Bipap due to nausea and titrate o2 as needed, to percent possible aspiration.
--- NOTE | 2017-12-05 10:00 | NUR ---
at bedside updated on progress. Sister Amanda updated on progress over the phone, she would like to meed with attending doctor. REJI Loving here to see pt. will notify Dr. Guevara that family will be here in the afternoon.
[2017-12-05] MEDS ORDERED: ONDANSETRON HCL/PF 8 MG in IV D5W 50 ML IVP PRN (12:30)
[2017-12-05] MEDS: CLOPIDOGREL BISULFATE 75 MG TABLET PO SCH (12:51)
[2017-12-05] MEDS: SEVELAMER CARBONATE 800 MG TABLET PO SCH ×3 (12:52→18:10)
[2017-12-05] MEDS: ASCORBIC ACID 500 MG TABLET PO SCH (12:52)
[2017-12-05] MEDS: ZINC SULFATE 220 MG CAPSULE PO SCH (12:52)
[2017-12-05] MEDS: MODAFINIL 100 MG TABLET PO SCH (12:52)
[2017-12-05] MEDS: prednisoLONE ACET 1% OPHT DROP 5 ML BOTTLE RIGHTEYE SCH ×4 (12:54→22:00)
[2017-12-05] MEDS: BRIMONIDINE TARTRATE OPHT SOLN 5 ML BOTTLE RIGHTEYE SCH ×3 (12:54→17:34)
[2017-12-05] MEDS: DAKINS QUARTER STRENGTH (0.125%) 480 ML BOTTLE TOP SCH (12:55)
[2017-12-05] MEDS ORDERED: Magnesium 1GM/D5W 100ML PREMIX 100 ML IV SCH (13:00)
[2017-12-05] MEDS: LEVOTHYROXINE SODIUM 100 MCG TABLET PO SCH (13:04)
[2017-12-05] MEDS ORDERED: ONDANSETRON HCL/PF 4 MG/2 ML VIAL IVP PRN (14:30)
--- NOTE | 2017-12-05 16:30 | NUR ---
HD completed, pt stated he would like bipap. pt placed on bipap with previous settings. BPRC imitated no reaction noted. family at bedside notified that DR. Tucker Guevara will see them tomorrow at 11am.
--- NOTE | 2017-12-05 18:00 | NUR ---
Amio gtt completed, Amio PO given at 1700.
--- NOTE | 2017-12-05 18:10 | NUR ---
prbc completed no reaction noted. pt remains on bipap. denies nausea, pain.
--- NOTE | 2017-12-05 19:38 | NUR ---
RN NOTE RECEIVED PT IN NO ACUTE DISTRESS IN BED. PT IS A/O X 3 AND ABLE TO MAKE NEEDS KNOWN. PT IS ON BIPAP WITH SETTING OF 25/5 RATE 16, FIO2 35% AND TOLERATING WELL WITH O2 SAT @ 100%. PT NOT C/O ANY SOB, DIFFICULTY BREATHING OR PAIN AT THIS TIME. PT NOT C/O ANY NAUSEA AND NO VOMITING NOTED. PT HAS SHAVONNE MIDLINE THAT IS CLEAN DRY INTACT AND PATENT WITH LEVO @ 40MCG, [place] @ 280 MCG AND NS @ TKO. PT HAS WOUND VAC ON RIGHT FOOT WITH DRESSING THAT IS CLEAN DRY AND INTACT. BED IN LOW LOCK POSITION WITH RAILS UP X 2. CALL LIGHT WITHIN REACH AND ALL SAFETY MEASURES ENSURED AND CARRIED OUT. WILL CONTINUE TO MONITOR.
--- NOTE | 2017-12-05 20:00 | NUR ---
RN NOTE RECEIVED CALL FROM LAB WITH CRITICAL LAB LEVEL OF AMIKACIN 12.7. READ BACK OF CRITICAL LAB LEVEL PERFORMED. NOTIFIED PHARMACY AND WILL HOLD AMIKACIN.
--- NOTE | 2017-12-05 20:18 | NUR ---
PATIENT RECEIVED ON BIPAP 20/, BUR 16, 35%. AMBU BAG @ HOB. ALARMS ON AND AUDIBLE. MASK IS SECURED WITH MEPELIX FOR FACE PROTECTION. TX GIVEN, NO ADVERSE REACTIONS NOTED. PATIENT IS AWAKE/ALERT AND FOLLOWING COMMANDS. PULSE OX CONNECTED AND WORKING. WILL CONTINUE TO MONITOR. Addendum: 12/05/17 at 2019 by BEVERLEY BLOCK RT Amended: Links added.
[2017-12-05] MEDS: ATORVASTATIN 10 MG TABLET PO SCH (21:59)
[2017-12-05] MEDS: TAMSULOSIN 0.4 MG CAP.SR.24H PO SCH (21:59)
[2017-12-06] VITALS (109 sets, daily range): BP systolic 69–136; BP diastolic 15–101
--- NOTE | 2017-12-06 00:25 | NUR ---
RT NOTE PATIENT REMOVED OFF BIPAP. NURSETHAI, PLACED NASAL CANNULA ON PATIENT. PATIENT TOLERATING WELL, NO DISTRESS NOTED. WILL MONITOR CLOSELY AND PLACE PATIENT ON BIPAP NEEDED.
[2017-12-06] MEDS: INSULIN REGULAR, HUMAN 100 UNIT/ML 3 ML VIAL SQ PRN ×2 (00:44→05:43)
[2017-12-06] MEDS: BLOOD SUGAR DIAGNOSTIC 1 EACH STRIP IN SCH ×4 (00:46→17:48)
[2017-12-06] MEDS: PHENYLEPHRINE 80 MG in IV D5W 250 ML IV PRN ×2 (01:20→07:23)
[2017-12-06] MEDS: IPRATROPIUM NEB FS 0.5 MG/2.5 ML AMPUL.NEB NEB SCH ×6 (03:28→23:14)
[2017-12-06 05:04] LABS: EOSINOPHILS % (AUTO) 0.1 % (0.0-6.0); HEMATOCRIT 26 % (39-51); HEMOGLOBIN 8.3 g/dL (13.5-17.5); LYMPHOCYTES # (AUTO) 1.1 /CMM (0.8-4.8); LYMPHOCYTES % (AUTO) 8.1 % (20.0-44.0); MEAN CORPUSCULAR HGB CONC 32 g/dl (31.0-36.0); MEAN CORPUSCULAR VOLUME 85 fL (80-96); MONOCYTES # (AUTO) 1.2 /CMM (0.1-1.30); MONOCYTES % (AUTO) 9.2 % (2.0-12.0); NEUTROPHILS # (AUTO) 10.9 /CMM (1.8-8.9); NEUTROPHILS % (AUTO) 82.6 % (43.0-81.0); PLATELET COUNT (AUTO) 91 /CMM (150-450); RDW COEFFICIENT OF VARIATION 20.3 (11.5-15.0); RED BLOOD CELL COUNT(AUTO) 3.03 MIL/uL (4.5-6.0); WHITE BLOOD COUNT (AUTO) 13.1 K/uL (4.3-11.0)
[2017-12-06 05:29] LABS: CALCIUM, SERUM 7.7 mg/dL (8.5-10.1); CARBON DIOXIDE 18 mmol/L (21-32); CHLORIDE 87 mmol/L (98-107); CREATININE 5.3 mg/dL (0.6-1.3); GLUCOSE 173 mg/dL (74-106); MAGNESIUM 2.5 mg/dL (1.8-2.4); PHOSPHORUS 4.9 mg/dL (2.5-4.9); POTASSIUM 4.6 mmol/L (3.5-5.1); SODIUM SERUM 125 mmol/L (136-145); UREA NITROGEN, BLOOD 68 mg/dL (7-18)
[2017-12-06] MEDS: NOREPINEPHRINE 16 MG in IV D5W 500 ML IV PRN ×3 (05:43→17:41)
--- NOTE | 2017-12-06 06:47 | NUR ---
RN NOTE PT REMAINS IN NO ACUTE DISTRESS IN BED. PT DID NOT HAVE ANY SIGNIFICANT CHANGE IN CONDITION DURING SHIFT. PT TOLERATED BIPAP FOR SEVERAL HOURS THEN REMOVED IT. NASAL CANNULA WAS PLACED AND PT TOLERATED WELL THROUGH THE NIGHT. PT CURRENTLY ON NASAL CANNULA WITH O2 SAT @ 98%. ALL NEEDS MET, ALL ORDERS CARRIED OUT. WILL ENDORSE TO AM RN FOR CONTINUITY OF CARE.
[2017-12-06] MEDS: LEVOTHYROXINE SODIUM 100 MCG TABLET PO SCH (07:30)
[2017-12-06] MEDS: ACETYLCYSTEINE 10% SOLN 400 MG/4 ML VIAL NEB SCH ×3 (07:46→23:14)
[2017-12-06] MEDS: SEVELAMER CARBONATE 800 MG TABLET PO SCH ×3 (08:00→16:04)
[2017-12-06] MEDS: NEPRO VAN 237 ML CAN PO SCH ×3 (08:00→16:04)
[2017-12-06] MEDS: DULOXETINE HCL 30 MG CAPSULE.DR PO SCH (08:08)
[2017-12-06] MEDS: AMIODARONE HCL 200 MG TABLET PO SCH ×3 (08:08→16:03)
[2017-12-06] MEDS: ZINC SULFATE 220 MG CAPSULE PO SCH (08:09)
[2017-12-06] MEDS: MODAFINIL 100 MG TABLET PO SCH (08:09)
[2017-12-06] MEDS: ASCORBIC ACID 500 MG TABLET PO SCH (08:09)
[2017-12-06] MEDS: POLYETHYLENE GLYCOL 3350 17 GM POWD.PACK PO SCH (08:09)
[2017-12-06] MEDS: CLOPIDOGREL BISULFATE 75 MG TABLET PO SCH (08:09)
[2017-12-06] MEDS: BRIMONIDINE TARTRATE OPHT SOLN 5 ML BOTTLE RIGHTEYE SCH ×3 (08:10→16:04)
[2017-12-06] MEDS: prednisoLONE ACET 1% OPHT DROP 5 ML BOTTLE RIGHTEYE SCH ×4 (08:10→21:44)
[2017-12-06] MEDS: DAKINS QUARTER STRENGTH (0.125%) 480 ML BOTTLE TOP SCH (08:10)
--- NOTE | 2017-12-06 08:10 | NUR ---
RN NOTE Patient lethargic, held all AM PO meds.
[2017-12-06] MEDS: LINEZOLID RTU BAG 600 MG in PREMIX 1 EA IV SCH ×2 (09:14→21:44)
[2017-12-06] MEDS: PROPOFOL 100 ML IV PRN ×2 (09:45→22:53)
--- NOTE | 2017-12-06 10:52 | NUR ---
RN NOTE 0720: Received patient lethargic, responds to name but closes eyes after 2 seconds. On 2LPM of O2 via NC, per noc nurse, off Bipap since 0600. Patient on and off Bipap since yesterday afternoon. Afib/ Vpace/ AV pace on the monitor. SHAVONNE midline intact, on 2 pressors. RIJ HD cath intact. Right foot wound vac connected to 100mmHg vac. 0800: Given breathing treatment by RT and ABD done after. 0830: ABG result relayed to Dr. Finney, with order for intubation. Prepared patient for intubation. 0850: Called ER MD for intubation. 0930: Intubated patient by Dr. Ramirez, noted with 300mL vomitus while intubation. 7.3/22cm lipline. 0945: S/E by Dr. Finney, with order for Diprivan, noted with agitation, placed on MANAGER MARKETING COMMUNICATION restraints for safety. 0950: arrived and given update. 1045: Family meeting with Dr. Guevara on the other room, all questions and concerns were answered by MD. Dr. Langford's school office assistant came and changed right foot wound vac. 1050: RT informed with order from Dr. Espinosa to advance ETT 3cm in. 1100: RT advanced ETT, now 25cm lipline. 1110: Off Owen, Levo titrating down for SBP >90. Diprivan @ 20mcg.
--- NOTE | 2017-12-06 11:07 | NUR ---
RT ETT WAS SECURED AT 22CM AT THE LIP LINE AND ADVANCED TO 25CM AT THE LIP LINE PER MD ORDER. EQUAL BILATERAL BREATHE SOUNDS AND CHEST RISE NOTED. ANIMATION CAMERA OPERATOR CUFF PRESSURE NOTED. NO RESPIRATORY DISTRESS NOTED AT THIS TIME, WILL CONTINUE TO MONITOR. Addendum: 12/06/17 at 1112 by GRACIE KEBEDE RT Amended: Links added.
[2017-12-06] MEDS ORDERED: SUCCINYLCHOLINE CHLORIDE 20 MG/ML VIAL IV ONE (12:22)
[2017-12-06] MEDS ORDERED: ETOMIDATE 2 MG/ML VIAL IV ONE (12:22)
[2017-12-06 14:12] LABS: ABG BASE EXCESS -15.9 mmol/L; ABG OXYGEN SATURATION 93.5 % (92.0-98.5); ABG PCO2 30.9 mmHg (35.0-45.0); ABG PH 7.176 (7.350-7.450); ABG PO2 85.1 mmHg (75.0-100.0); AaDO2 200.6 mmHg; COHb 0.3 % (0.5-1.5); MetHb 0.4 % (0.0-1.5); O2Hb 92.8 % (94.0-97.0); PEEP,BG 5 cm H2O; SITE, ABG Right Radial; VT, ABG 550 mL
[2017-12-06 14:12] LABS: ABG OXYGEN SATURATION 89.2 % (92.0-98.5); ABG PCO2 44.2 mmHg (35.0-45.0); ABG PH 7.109 (7.350-7.450); ABG PO2 70.5 mmHg (75.0-100.0); COHb 0.3 % (0.5-1.5); MetHb 0.4 % (0.0-1.5); O2Hb 88.6 % (94.0-97.0); SITE, ABG Right Radial; VENT MODE, BG NASAL CANNULA
[2017-12-06 14:12] LABS: ABG OXYGEN SATURATION 92.5 % (92.0-98.5); ABG PH 7.246 (7.350-7.450); ABG PO2 76.4 mmHg (75.0-100.0); AaDO2 96.8 mmHg; COHb 0.3 % (0.5-1.5); MetHb 0.9 % (0.0-1.5); O2Hb 91.4 % (94.0-97.0); SITE, ABG Left Radial; VENT MODE, BG NC 3L 32%
[2017-12-06 14:12] LABS: ABG BASE EXCESS -3.3 mmol/L; ABG OXYGEN SATURATION 97.4 % (92.0-98.5); ABG PCO2 61.2 mmHg (35.0-45.0); ABG PH 7.219 (7.350-7.450); ABG PO2 122.9 mmHg (75.0-100.0); AaDO2 55.5 mmHg; COHb 0.6 % (0.5-1.5); MetHb 0.6 % (0.0-1.5); O2Hb 96.2 % (94.0-97.0); SITE, ABG Right Brachial; VENT MODE, BG IPAP 20/ EPAP 5
[2017-12-06 16:06] LABS: ABG BASE EXCESS -14.1 mmol/L; ABG OXYGEN SATURATION 94.6 % (92.0-98.5); ABG PCO2 28.2 mmHg (35.0-45.0); ABG PH 7.243 (7.350-7.450); ABG PO2 85.1 mmHg (75.0-100.0); AaDO2 203.7 mmHg; COHb 0.3 % (0.5-1.5); MetHb 0.6 % (0.0-1.5); O2Hb 93.7 % (94.0-97.0); SITE, ABG Right Radial; VENT MODE, BG AC 20 600 +5 45%
--- NOTE | 2017-12-06 19:34 | NUR ---
RN NOTE RECEIVED PT IN NO ACUTE DISTRESS IN BED. PT IS SEDATED ON DIPRIVAN. PT IS INTUBATED ETT 7.0/ 25 AT THE LIP WITH VENT SETTING @ AC 20, TV 600, FIO2 45, PEEP 5 AND TOLERATING WELL WITH O2 SAT @ 100%. PT NOT SHOWING ANY S/S OF SOB, DIFFICULTY BREATHING OR PAIN AT THIS TIME. PT HAS SHAVONNE MIDLINE THAT IS CLEAN DRY INTACT AND PATENT WITH DIPRIVAN @ 20, LEVO @ 34MCG AND NS @ TKO. PT HAS WOUND VAC ON RIGHT FOOT WITH DRESSING THAT IS CLEAN DRY AND INTACT. BED IN LOW LOCK POSITION WITH RAILS UP X 2. CALL LIGHT WITHIN REACH AND ALL SAFETY MEASURES ENSURED AND CARRIED OUT. WILL CONTINUE TO MONITOR.
--- NOTE | 2017-12-06 20:07 | NUR ---
RECEIVED PT INTUBATED ON VENT. PT TOLERATING VENT SETTINGS. SX'D FOR MOD AMT OF THICK YELLOW SECRETIONS. VENT ALARMS SET AND AUDIBLE. TRACH CUFF PRODUCE ASSISTANT, SECURED. VENT PLUGGED INTO RED OUTLET. AMBU BAG AT BEDSIDE. WILL CONTINUE TO MONITOR. Addendum: 12/06/17 at 2008 by FRANCISCO DAWSON RT Amended: Links added.
[2017-12-06] MEDS: TAMSULOSIN 0.4 MG CAP.SR.24H PO SCH (21:44)
[2017-12-06] MEDS: ATORVASTATIN 10 MG TABLET PO SCH (21:44)
[2017-12-07] VITALS (83 sets, daily range): BP systolic 48–128; BP diastolic 31–74
[2017-12-07] MEDS: BLOOD SUGAR DIAGNOSTIC 1 EACH STRIP IN SCH ×3 (00:45→12:41)
[2017-12-07] MEDS: INSULIN REGULAR, HUMAN 100 UNIT/ML 3 ML VIAL SQ PRN (00:45)
[2017-12-07] MEDS: NOREPINEPHRINE 16 MG in IV D5W 500 ML IV PRN ×2 (01:31→10:53)
[2017-12-07] MEDS: IPRATROPIUM NEB FS 0.5 MG/2.5 ML AMPUL.NEB NEB SCH ×4 (03:34→15:32)
[2017-12-07 05:35] LABS: BASOPHILS % (AUTO) 0.3 % (0.0-2.0); EOSINOPHILS % (AUTO) 0.1 % (0.0-6.0); HEMATOCRIT 24 % (39-51); HEMOGLOBIN 8.2 g/dL (13.5-17.5); LYMPHOCYTES # (AUTO) 0.6 /CMM (0.8-4.8); MEAN CORPUSCULAR HGB CONC 34 g/dl (31.0-36.0); MEAN CORPUSCULAR VOLUME 82 fL (80-96); MONOCYTES # (AUTO) 0.7 /CMM (0.1-1.30); MONOCYTES % (AUTO) 4.5 % (2.0-12.0); NEUTROPHILS # (AUTO) 13.4 /CMM (1.8-8.9); NEUTROPHILS % (AUTO) 91.1 % (43.0-81.0); PLATELET COUNT (AUTO) 106 /CMM (150-450); RED BLOOD CELL COUNT(AUTO) 2.95 MIL/uL (4.5-6.0); WHITE BLOOD COUNT (AUTO) 14.7 K/uL (4.3-11.0)
[2017-12-07] MEDS: PROPOFOL 100 ML IV PRN ×2 (05:39→13:02)
[2017-12-07 05:50] LABS: CALCIUM, SERUM 7.5 mg/dL (8.5-10.1); CARBON DIOXIDE 16 mmol/L (21-32); CHLORIDE 83 mmol/L (98-107); CREATININE 5.9 mg/dL (0.6-1.3); GLUCOSE 145 mg/dL (74-106); MAGNESIUM 2.2 mg/dL (1.8-2.4); PHOSPHORUS 4.4 mg/dL (2.5-4.9); POTASSIUM 5.4 mmol/L (3.5-5.1); UREA NITROGEN, BLOOD 78 mg/dL (7-18)
[2017-12-07 06:02] LABS: SODIUM SERUM 120 mmol/L (136-145)
--- NOTE | 2017-12-07 06:49 | NUR ---
RN NOTE PT HAS RUN OF VTACH ON THE MONITOR. PAGED SAURABH PAREDES NP EQUIPMENT OPERAT0R. AWAITING CALL BACK. WILL CONTINUE TO MONITOR.
[2017-12-07] MEDS: NEPRO VAN 237 ML CAN PO SCH ×2 (08:00→11:37)
[2017-12-07] MEDS: PHENYLEPHRINE 80 MG in IV D5W 250 ML IV PRN ×2 (08:19→12:41)
[2017-12-07] MEDS: ACETYLCYSTEINE 10% SOLN 400 MG/4 ML VIAL NEB SCH ×2 (08:21→15:32)
[2017-12-07] MEDS: SEVELAMER CARBONATE 800 MG TABLET PO SCH (08:26)
[2017-12-07] MEDS: LINEZOLID RTU BAG 600 MG in PREMIX 1 EA IV SCH (08:26)
[2017-12-07] MEDS: POLYETHYLENE GLYCOL 3350 17 GM POWD.PACK PO SCH (08:26)
[2017-12-07] MEDS: LEVOTHYROXINE SODIUM 100 MCG TABLET PO SCH (08:26)
[2017-12-07] MEDS: ZINC SULFATE 220 MG CAPSULE PO SCH (08:26)
[2017-12-07] MEDS: ASCORBIC ACID 500 MG TABLET PO SCH (08:26)
[2017-12-07] MEDS: AMIODARONE HCL 200 MG TABLET PO SCH ×2 (08:27→12:55)
[2017-12-07] MEDS: CLOPIDOGREL BISULFATE 75 MG TABLET PO SCH (08:27)
[2017-12-07] MEDS: DULOXETINE HCL 30 MG CAPSULE.DR PO SCH (08:27)
[2017-12-07] MEDS: MODAFINIL 100 MG TABLET PO SCH (08:27)
[2017-12-07] MEDS: DAKINS QUARTER STRENGTH (0.125%) 480 ML BOTTLE TOP SCH (08:32)
[2017-12-07] MEDS: prednisoLONE ACET 1% OPHT DROP 5 ML BOTTLE RIGHTEYE SCH ×2 (08:32→12:56)
[2017-12-07] MEDS: BRIMONIDINE TARTRATE OPHT SOLN 5 ML BOTTLE RIGHTEYE SCH ×2 (08:32→12:56)
[2017-12-07 10:25] LABS: ABG BASE EXCESS -12.2 mmol/L; ABG OXYGEN SATURATION 97.1 % (92.0-98.5); ABG PCO2 25.6 mmHg (35.0-45.0); ABG PH 7.314 (7.350-7.450); ABG PO2 112.6 mmHg (75.0-100.0); AaDO2 179.1 mmHg; MetHb 0.6 % (0.0-1.5); O2Hb 96.5 % (94.0-97.0); SITE, ABG Right Radial; VENT MODE, BG AC 20 600 +5 45%
--- NOTE | 2017-12-07 11:27 | NUR ---
RN NOTE 0745: Received patient sedated. With ETT to vent, tolerated settings at this time. With Left NGT intact, with gurgling sound when introduced air and auscultated. 99.3 temp via core on oral. Afib/ V pacing 80-90's. 0845: Dr. Carvalho called and said to titrate off Bakari and start Owen instead. 0900: at bedside, given update re: the patient. 0945: On Owen max but noted with 80's, will start Levo minimal dose. 1040: Noted patient with agitation, biting the tube and moving the arms, turned back the Diprivan on. 1100: Placed on 10mcg of Levo for HD to start, BP 80's. will monitor. Given Albumin to HD nurse. 1125: No any significant changes noted at this time. No episode of Vtach since 0700. tolerating HD so far. Sedated on 20mcg of Diprivan.
[2017-12-07] MEDS: ALBUMIN 25% 25 GM in PREMIX 1 EA IV PRN (11:37)
[2017-12-07] MEDS ORDERED: SEVELAMER CARBONATE 0.8 GM POWD.PACK PO SCH (13:00)
--- NOTE | 2017-12-07 13:14 | NUR ---
RN NOTE Still on HD, with episodes of Vtach runs again, one with 12 seconds, dr. Finney in the unit aware. Made Dr. Carvahlo aware, made him aware we have to restart Levo because of the HD and on 30mcg right now, also told him there's 3.5 more hours for HD. No new order at this time.
--- NOTE | 2017-12-07 15:12 | NUR ---
RN NOTE With episode of long Vtach, about to shock because patient's AICD is firing but not converting, but eventually, after 1.5 minutes ,back to Vpace. HD discontinued, with 2400mL out. Made Dr. Carvalho aware.
[2017-12-07] MEDS ORDERED: CALCIUM CHLORIDE 1,000 MG/10 ML DISP.SYRIN IV ONE ×2 (16:00→16:09)
[2017-12-07] MEDS ORDERED: Magnesium 1 GM/2 ML VIAL IV ONE ×2 (16:00→16:09)
[2017-12-07] MEDS ORDERED: EPINEPHRINE (1:10,000) SYRINGE 1 MG/10 ML DISP.SYRIN IVP ONE ×2 (16:00→16:09)
[2017-12-07] MEDS ORDERED: SODIUM BICARBONATE SYR 50 MEQ/50 ML DISP.SYRIN IV ONE (16:09)
--- NOTE | 2017-12-07 16:32 | NUR ---
RN NOTE 1558: Jigna gilliland called for frequent Vtach and defibrillating frequently. See code blue sheet. 1605: called by me, aware for the code. 1610: Still pulseless. Dr. Anne pronounced time of . 1615: Called and informed patient , she said she will inform the other family members, she does not want to see the patient. Informed her we have to place the body to morgue and she needs to sign release of body, she said she will come in tonight and she will find mortuary.
--- NOTE | 2017-12-07 18:49 | NUR ---
RN NOTE Family arrived, signed release of body but no Mortuary chosen yet. [place]pan[place] [facility] [place]
== END 2017-12-07 16:10 | disposition expired | DRG 853 ==
LOC: ER 16:40 → TELE-TD 20:18 → MEDSG1 11-24 08:31 → ICU 11-24 09:39
PROVIDERS: ADMIT Internal Medicine; ATTEND Internal Medicine
PROC: 5A1D70Z Performance of Urinary Filtration, Intermittent, Less than 6 Hours Per Day (ICD-10-PCS; 2017-11-22)
PROC: 5A1D70Z Performance of Urinary Filtration, Intermittent, Less than 6 Hours Per Day (ICD-10-PCS; 2017-11-23)
PROC: 5A09457 Assistance with Respiratory Ventilation, 24-96 Consecutive Hours, Continuous Positive Airway Pressure (ICD-10-PCS; 2017-11-24)
PROC: 5A1D70Z Performance of Urinary Filtration, Intermittent, Less than 6 Hours Per Day (ICD-10-PCS; 2017-11-24)
PROC: 5A1D70Z Performance of Urinary Filtration, Intermittent, Less than 6 Hours Per Day (ICD-10-PCS; 2017-11-25)
PROC: 5A1D70Z Performance of Urinary Filtration, Intermittent, Less than 6 Hours Per Day (ICD-10-PCS; 2017-11-26)
PROC: 30233N1 Transfusion of Nonautologous Red Blood Cells into Peripheral Vein, Percutaneous Approach (ICD-10-PCS; 2017-11-27)
PROC: 05PYX3Z Removal of Infusion Device from Upper Vein, External Approach (ICD-10-PCS; 2017-11-27)
PROC: 05HM33Z Insertion of Infusion Device into Right Internal Jugular Vein, Percutaneous Approach (ICD-10-PCS; 2017-11-27)
PROC: 5A1D70Z Performance of Urinary Filtration, Intermittent, Less than 6 Hours Per Day (ICD-10-PCS; 2017-11-27)
PROC: 5A1D70Z Performance of Urinary Filtration, Intermittent, Less than 6 Hours Per Day (ICD-10-PCS; 2017-11-29)
PROC: 5A1D70Z Performance of Urinary Filtration, Intermittent, Less than 6 Hours Per Day (ICD-10-PCS; 2017-11-30)
PROC: 5A1D70Z Performance of Urinary Filtration, Intermittent, Less than 6 Hours Per Day (ICD-10-PCS; 2017-12-02)
PROC: 0JB70ZZ Excision of Back Subcutaneous Tissue and Fascia, Open Approach (ICD-10-PCS; 2017-12-03)
PROC: 0JB90ZZ Excision of Buttock Subcutaneous Tissue and Fascia, Open Approach (ICD-10-PCS; 2017-12-03)
PROC: 5A1D70Z Performance of Urinary Filtration, Intermittent, Less than 6 Hours Per Day (ICD-10-PCS; 2017-12-04)
PROC: 5A1D70Z Performance of Urinary Filtration, Intermittent, Less than 6 Hours Per Day (ICD-10-PCS; 2017-12-05)
PROC: 5A1935Z Respiratory Ventilation, Less than 24 Consecutive Hours (ICD-10-PCS; principal; 2017-12-06)
PROC: 0BH18EZ Insertion of Endotracheal Airway into Trachea, Via Natural or Artificial Opening Endoscopic (ICD-10-PCS; 2017-12-06)
PROC: 5A12012 Performance of Cardiac Output, Single, Manual (ICD-10-PCS; 2017-12-07)
PROC: 5A1D70Z Performance of Urinary Filtration, Intermittent, Less than 6 Hours Per Day (ICD-10-PCS; 2017-12-07)
DX: A41.9 Sepsis, unspecified organism (principal); L89.323 Pressure ulcer of left buttock, stage 3; L89.313 Pressure ulcer of right buttock, stage 3; L89.893 Pressure ulcer of other site, stage 3; L89.153 Pressure ulcer of sacral region, stage 3; J96.21 Acute and chronic respiratory failure with hypoxia; N18.6 End stage renal disease; E43 Unspecified severe protein-calorie malnutrition; R65.21 Severe sepsis with septic shock; J96.22 Acute and chronic respiratory failure with hypercapnia; G92 Toxic encephalopathy; I50.41 Acute combined systolic (congestive) and diastolic (congestive) heart failure; E87.1 Hypo-osmolality and hyponatremia; I13.2 Hypertensive heart and chronic kidney disease with heart failure and with stage 5 chronic kidney disease, or end stage renal disease; I42.9 Cardiomyopathy, unspecified; B49 Unspecified mycosis; E66.2 Morbid (severe) obesity with alveolar hypoventilation; M86.8X7 Other osteomyelitis, ankle and foot; B37.49 Other urogenital candidiasis; I47.2 Ventricular tachycardia; Z99.2 Dependence on renal dialysis; Z95.1 Presence of aortocoronary bypass graft; Z95.5 Presence of coronary angioplasty implant and graft; E11.22 Type 2 diabetes mellitus with diabetic chronic kidney disease; E11.621 Type 2 diabetes mellitus with foot ulcer; E03.9 Hypothyroidism, unspecified; E11.65 Type 2 diabetes mellitus with hyperglycemia; E87.5 Hyperkalemia; E78.5 Hyperlipidemia, unspecified; I25.10 Atherosclerotic heart disease of native coronary artery without angina pectoris; N40.0 Benign prostatic hyperplasia without lower urinary tract symptoms; K21.9 Gastro-esophageal reflux disease without esophagitis; Z86.73 Personal history of transient ischemic attack (TIA), and cerebral infarction without residual deficits; Z91.19 Patient's noncompliance with other medical treatment and regimen; Z95.810 Presence of automatic (implantable) cardiac defibrillator; I25.2 Old myocardial infarction; B96.89 Other specified bacterial agents as the cause of diseases classified elsewhere; D63.1 Anemia in chronic kidney disease; E88.09 Other disorders of plasma-protein metabolism, not elsewhere classified; I48.2 Chronic atrial fibrillation; E11.51 Type 2 diabetes mellitus with diabetic peripheral angiopathy without gangrene; Z68.36 Body mass index [BMI] 36.0-36.9, adult; E83.9 Disorder of mineral metabolism, unspecified; L97.519 Non-pressure chronic ulcer of other part of right foot with unspecified severity; E11.69 Type 2 diabetes mellitus with other specified complication; Z89.612 Acquired absence of left leg above knee; L30.4 Erythema intertrigo; Z72.0 Tobacco use; E86.1 Hypovolemia; J44.9 Chronic obstructive pulmonary disease, unspecified
CPT/HCPCS: 31720; 36415; 36569; 36600; 70450-TC; 71045-TC; 73630-TC; 80048-TC; 80053-TC; 80061-TC; 80076-TC; 80150; 80202-TC; 81000-TC; 82272-TC; 82728-TC; 82803-TC; 82962-TC; 83540-TC; 83605-TC; 83735-TC; 84100-TC; 84439-TC; 84443-TC; 84484-TC; 85025-TC; 85027-TC; 85610-TC; 85652-TC; 85730-TC; 86140-TC; 86850-TC; 86921-TC; 87040-TC; 87070-TC; 87081-TC; 87086-TC; 87186-TC; 90935-TC; 92611-TC; 93307-TC; 94003-TC; 94660; 94760-TC; 94799-TC; 99082-TC; A4216; A4606; A6253; A6402; A6403; C1750; C1751; G0378; J0171; J0278; J0282; J0330; J0692; J0885; J1450; J1644; J1815; J2020; J2060; J2185; J2370; J2405; J2543; J2916; J3370; J3430; J3475; J3490; J7030; J7040; J7042; J7050; J7060; P9016-BL; P9047; Q0169; Z7610